=== PATIENT | male | born 1930 | race Caucasian/White ===

== ENCOUNTER 2017-05-08 14:07 | Inpatient (IN) | payer OTHER ==
[2017-05-08 14:12] VITALS: BMI 21.9
--- NOTE | 2017-05-08 14:26 | PDOC ---
History of Present Illness - General Chief Complaint: Shortness of Breath Stated Complaint: SHORTNESS OF BREATH Time Seen by Provider: 05/08/17 14:24 - History of Present Illness Initial Comments: 05/08/17 14:24 Mr. Rivas is an 86 yo male with a significant past medical history of afib, CHF , HTN, HLD, PVD and skin cancer who presents to the emergency department with a 3-4 day history of new onset weakness with shortness of breath. He reports having difficulty breathing over this time period as well as constipation. The patient denies chest pain, headache and dizziness. Denies fever, chills, nausea, vomit, and diarrhea. Denies dysuria, frequency, urgency and hematuria. Allergies: Penicillins PCP: Aba Past History - Past Medical History Allergies/Adverse Reactions: Allergies Allergy/AdvReac Type Severity Reaction Status Date / Time Penicillins Allergy Intermediate Rash Verified 05/08/17 14:14 Home Medications: Ambulatory Orders Alpha Lipoic Acid [Lipoic Acid] 200 mg PO DAILY 12/12/15 Ascorbic Acid [Vitamin C] 500 mg PO HS 12/12/15 Atorvastatin Ca [Lipitor] 10 mg PO HS 12/12/15 Brimonidine Tartrate [Alphagan 0.15% -] 1 drop OD BID 12/12/15 Cholecalciferol (Vitamin D3) [Vitamin D] 1,000 unit PO DAILY 12/12/15 Dabigatran Etexilate Mesylate [Pradaxa -] 150 mg PO BID 12/12/15 Docusate Sodium [Colace -] 200 mg PO HS 12/12/15 Duloxetine HCl [Cymbalta] 60 mg PO HS 12/12/15 Fenofibrate Nanocrystallized [Tricor] 145 mg PO DAILY 12/12/15 Ferrous Sulfate [Slow Release Iron] 45 mg PO DAILY 12/12/15 Fluticasone Prop 0.05% Nasal [Flonase -] 2 spray NS DAILY 12/12/15 Furosemide [Lasix -] 40 mg PO ASDIR 12/12/15 Levomefolate/B6/B12/Algal Oil [Metanx Capsule] 1 each PO BID 12/12/15 Levothyroxine [Synthroid -] 50 mcg PO DAILY 12/12/15 Magnesium Chloride [Magnesium Dr] 64 mg PO DAILY 12/12/15 Omeprazole [Prilosec] 40 mg PO DAILY 12/12/15 Potassium Chloride 20 meq PO DAILY 12/12/15 Sennosides [Senna Concentrate] 17.2 mg PO DAILY 12/12/15 Butenafine HCl [Mentax] 30 gm TP BID 05/08/17 Gabapentin 600 mg PO BID 05/08/17 Melatonin 3 mg PO DAILY 05/08/17 Anemia: No Asthma: No Cancer: No Cardiac Disorders: Yes (AFIB) CVA: No COPD: No CHF: Yes Dementia: No Diabetes: No GI Disorders: No Disorders: No HTN: Yes Hypercholesterolemia: Yes Liver Disease: No Suicide Attempt (Hx): No Seizures: No Thyroid Disease: Yes (HYPOTHYROIDISM) - Surgical History Abdominal Surgery: No Appendectomy: No Cardiac Surgery: Yes (STENTS) Cholecystectomy: Yes (OPEN) Lung Surgery: Yes (R LUNG SX, NO CA) Neurologic Surgery: No Orthopedic Surgery: Yes (LAMINECTOMY, DAVIN KNEE REPLACEMENT) - Immunization History Td Vaccination: Yes Immunization Up to Date: Yes - Psycho/Social/Smoking Cessation Hx Anxiety: No Suicidal Ideation: No Smoking Status: Yes Smoking History: Former smoker Have you smoked in the past 12 months: No Number of Cigarettes Smoked Daily: 0 If you are a former smoker, when did you quit?: 1984 Cigars Per Day: 0 Information on smoking cessation initiated: No Hx Alcohol Use: No Drug/Substance Use Hx: No Substance Use Type: None Hx Substance Use Treatment: No Review of Systems - Review of Systems Comments:: 05/08/17 14:24 GENERAL/CONSTITUTIONAL: +Generalized new onset weakness. No fever or chills. HEAD, EYES, EARS, NOSE AND THROAT: No change in vision. No ear pain or discharge. No sore throat. CARDIOVASCULAR:+3-4 days of shortness of breath RESPIRATORY: No cough, wheezing, or hemoptysis. GASTROINTESTINAL: +Recent consipation. No nausea, vomiting, or diarrhea. GENITOURINARY: No dysuria, frequency, or change in urination. MUSCULOSKELETAL: No joint or muscle swelling or pain. No neck or back pain. SKIN: No rash NEUROLOGIC: No headache, vertigo, loss of consciousness, or change in sensation. ENDOCRINE: No increased thirst. No abnormal weight change HEMATOLOGIC/LYMPHATIC: No anemia, easy bleeding, or history of blood clots. ALLERGIC/IMMUNOLOGIC: No hives or skin allergy. *Physical Exam - Vital Signs Last Vital Signs Temp Pulse Resp BP Pulse Ox 97.6 F 76 20 145/99 98 05/08/17 14:08 05/08/17 14:08 05/08/17 14:08 05/08/17 14:08 05/08/17 14:08 - Physical Exam Comments: 05/08/17 14:24 GENERAL: +Patient very pale. Satting well on 3L NC. Awake, alert, and fully oriented. Strength symmetric. HEAD: No signs of trauma, normocephalic, atraumatic EYES: PERRLA, EOMI, sclera anicteric, conjunctiva clear ENT: +Dry mucosa. Auricles normal inspection, hearing grossly normal, nares patent, oropharynx clear without exudates. NECK: Normal ROM, supple, no lymphadenopathy, JVD, or masses LUNGS: +Patient short of breath with any exertion. Speaks full sentences, clear to auscultation bilaterally HEART: Regular rate and rhythm, normal S1 and S2, no murmurs, rubs or gallops, peripheral pulses normal and equal bilaterally. ABDOMEN: Soft, nontender, normoactive bowel sounds. No guarding, no rebound. No masses EXTREMITIES: Normal inspection, Normal range of motion, no edema. No clubbing or cyanosis. NEUROLOGICAL: Cranial nerves II through XII grossly intact. Normal speech, no focal sensorimotor deficits SKIN: Warm, Dry, normal turgor, no rashes or lesions noted. ED Treatment Course - LABORATORY CBC & Chemistry Diagram: 05/08/17 15:23 05/08/17 15:23 Medical Decision Making - Medical Decision Making 05/08/17 17:30 Mr. Rivas presents with new onset shortness of breath with any exertion. Labs as below - significant for troponin 0.06 with cardiac history. Admitting for telemetry and workup to investigate cause of symptoms. Laboratory Results - last 24 hr 05/08/17 05/08/17 15:23 15:23 WBC 11.1 H D RBC 3.15 L Hgb 11.2 L D Hct 33.1 L D MCV 105.2 H MCH 35.5 H D MCHC 33.8 RDW 17.2 H Plt Count 251 D MPV 9.0 Neutrophils % 84.2 H Lymphocytes % 5.5 L Monocytes % 8.7 Eosinophils % 1.0 Basophils % 0.6 Sodium 141 Potassium 4.2 Chloride 97 L Carbon Dioxide 38 H D Anion Gap 6 L BUN 22 H Creatinine 0.8 D Creat Clearance w eGFR > 60 Random Glucose 105 Calcium 8.8 Total Bilirubin 0.7 AST 18 ALT 16 Alkaline Phosphatase 40 L Creatine Kinase 24 L Troponin I 0.06 H D Total Protein 6.5 Albumin 3.4 *DC/Admit/Observation/Transfer Diagnosis at time of Disposition: Shortness of breath - Discharge Dispostion Admit: Yes - Referrals Referrals: Willy Troncoso MD [Primary Care Provider] -
--- NOTE | 2017-05-08 15:09 | PDOC ---
Attending Attestation - HPI HPI: 05/08/17 15:10 The patient is an 86 year old male with history of hypertension, atrial fibrillation, CAD, CHF, who presents to the ED complaining of approximately 3-4 days of progressively worsening shortness of breath and generalized weakness. CXR yesterday by PCP was reportedly unremarkable. No fever, chills, nausea, vomiting, peripheral edema. - Physicial Exam PE: 05/08/17 15:11 GENERAL: Awake, alert, and fully oriented, in no acute distress HEAD: No signs of trauma EYES: PERRLA, EOMI, sclera anicteric, conjunctiva clear ENT: +Dry mucous membranes. Auricles normal inspection, hearing grossly normal, nares patent, oropharynx clear without exudates. NECK: Normal ROM, supple, no lymphadenopathy, JVD, or masses LUNGS: Breath sounds equal, clear to auscultation bilaterally. No wheezes, and no crackles HEART: Regular rate and rhythm, normal S1 and S2, no murmurs, rubs or gallops ABDOMEN: Soft, nontender, normoactive bowel sounds. No guarding, no rebound. No masses EXTREMITIES: Normal range of motion, no edema. No clubbing or cyanosis. No cords, erythema, or tenderness NEUROLOGICAL: Cranial nerves II through XII grossly intact. Normal speech, gait deferred. SKIN: Warm, Dry, normal turgor, no rashes or lesions noted. - Medical Decision Making 05/08/17 15:13 Documentation prepared by Charo Fernandez, acting as curator medical museum for Susana Hilario MD. <Charo Fernandez - Last Filed: 05/08/17 15:10> - Resident Resident Name: Ant Mendoza - ED Attending Attestation I have performed the following: I have examined & evaluated the patient, The case was reviewed & discussed with the resident, I agree w/resident's findings & plan, Exceptions are as noted - HPI HPI: 05/08/17 15:26 . - Physicial Exam PE: 05/08/17 15:26 . - Medical Decision Making 05/08/17 15:00 86 yo M with /ho afib, chf, htn ckd here with progressive sob, and weakness. nonfocal. noted pallor on exam . otherwise normal. differential: anemia, chf infection such as pneumonia, angina, worsening renal failure. electrolyte abnormality, plan ekg labs cxr tsh <Susana Hilario - Last Filed: 05/08/17 15:26> Heart Score/ECG Review #1 General ECG Interpretation: Normal Rate (73), Normal Intervals, No acute ischemic changes Compared to previous ECG there are: No significant change (comparison 08/01/15) - ECG Intrepretation Rhythm: Irregularly Irregular Comment:: 05/08/17 15:25 afib - QRS Widened: RBBB <Susana Hilario - Last Filed: 05/08/17 15:26>
[2017-05-08 15:43] LABS: BASOPHIL 0.6 % (0-2.0); MCH 35.5 pg (25.7-33.7); MCHC 33.8 g/dl (32.0-35.9); MEAN CELL VOLUME 105.2 fl (80-96); NEUTROPHILS 84.2 % (42.8-82.8); PLATELET COUNT 251 K/MM3 (134-434); RDW 17.2 % (11.9-15.9); WHITE BLOOD COUNT 11.1 K/mm3 (4.0-10.0)
[2017-05-08 16:05] LABS: ALBUMIN 3.4 g/dl (3.4-5.0); ANION GAP 6 (8-16); BILIRUBIN,TOTAL 0.7 mg/dL (0.2-1.0); CALCIUM 8.8 mg/dL (8.5-10.1); CO2 38 mmol/L (21-32); CREATININE 0.8 mg/dL (0.7-1.3); GLUCOSE,RANDOM 105 mg/dL (74-106); SGOT/AST 18 U/L (15-37); SGPT/ALT 16 U/L (12-78); TOT PROT 6.5 g/dl (6.4-8.2)
[2017-05-08 16:08] LABS: ALK PHOS 40 U/L (45-117); CPK 24 IU/L (39-308); TROPONIN I 0.06 ng/ml (0.00-0.05)
[2017-05-08] MEDS ORDERED: ACETAMINOPHEN 325 MG TABLET (FP) PO PRN (18:51)
[2017-05-08] MEDS ORDERED: FUROSEMIDE 40 MG TABLET (FP) PO SCH (19:00)
[2017-05-08] MEDS ORDERED: RANITIDINE HCL 150 MG TABLET (FP) ONE (22:07)
[2017-05-08] MEDS ORDERED: DOCUSATE SODIUM 100 MG CAPSULE (FP) PO ONE (22:08)
[2017-05-08] MEDS ORDERED: ATORVASTATIN CA 40 MG TABLET (FP) ONE (22:08)
[2017-05-08] MEDS ORDERED: GABAPENTIN 100 MG CAPSULE (FP) ONE (22:08)
[2017-05-08] MEDS ORDERED: DULoxetine HCL 30 MG CAPSULE.DR (FP) PO ONE (22:08)
[2017-05-08] MEDS: BRIMONIDINE TARTRATE 0.15% OPHTHALMIC 5 ML BOTTLE OD SCH (23:05)
[2017-05-08] MEDS: DOCUSATE SODIUM 100 MG CAPSULE (FP) PO SCH (23:05)
[2017-05-08] MEDS: ATORVASTATIN CA 10 MG TABLET (FP) PO SCH (23:05)
[2017-05-08] MEDS: DULoxetine HCL 30 MG CAPSULE.DR (FP) PO SCH (23:05)
[2017-05-08] MEDS: GABAPENTIN 300 MG CAPSULE (FP) PO SCH (23:05)
[2017-05-08] MEDS: DABIGATRAN ETEXILATE MESYLATE 150 MG CAPSULE PO SCH (23:06)
[2017-05-08] MEDS: ASCORBIC ACID 500 MG TABLET (FP) PO SCH (23:06)
[2017-05-08] MEDS: RANITIDINE HCL 150 MG TABLET (FP) PO SCH (23:06)
[2017-05-09 01:21] LABS: URINE APPEARANCE CLEAR; URINE BILIRUBIN NEGATIVE (NEGATIVE); URINE BLOOD NEGATIVE (NEGATIVE); URINE COLOR LTYELLOW; URINE GLUCOSE (UA) NEGATIVE (NEGATIVE); URINE KETONE NEGATIVE (NEGATIVE); URINE LEUK ESTERASE NEGATIVE (NEGATIVE); URINE NITRITE NEGATIVE (NEGATIVE); URINE PROTEIN 2+ (NEGATIVE); URINE UROBILINOGEN NEGATIVE mg/dL (0.2-1.0)
[2017-05-09 01:23] LABS: URINE BACTERIA RARE /hpf (NONE SEEN); URINE HYALINE CAST 16 /lpf; URINE MUCUS RARE; URINE RBC 1 /hpf (0-3)
--- NOTE | 2017-05-09 05:16 | CONSULT ---
Consult Consult Specialty:: pulmonary/ critical care Referred by:: Jose Chaney Reason for Consultation:: shortness of breath - History of Present Illness Chief Complaint: shorness of breath History of Present Illness: 86 y/o man with history of afib on AC, CHF, HTN, HLD, PVD and skin cancer who presented to ED with 3-4 days of weakness and shortness of breath. He also reportedly fell at home while trying to avoid stepping on the cat, no head trauma, no LOC. In the ED, pt denied chest pain, headache, dizziness, fever, chills, nausea/ vomiting, diarrhea, dysuria. CXR in ED showed some increased vascular markings otherwise relatively unremarkable. Labs notable for mild leukocytosis 11 and BNP 27K, urine with 2+ protein. Given no tele beds available , pt transferred to ICU. On arrival to ICU pt A&O, on my exam he is resting comfortably, breathing unlabored, satting 100% on 2L NC, hemodynamically stable. Active Medications Acetaminophen (Tylenol -) 650 mg PO Q6H PRN PRN Reason: FEVER OR PAIN Ascorbic Acid (Vitamin C -) 500 mg PO HS [facility] Last Admin: 05/08/17 23:06 Dose: 500 mg Atorvastatin Calcium (Lipitor -) 10 mg PO HS [facility] Last Admin: 05/08/17 23:05 Dose: 10 mg Brimonidine Tartrate (Alphagan 0.15% -) 1 drop OD BID [facility] Last Admin: 05/08/17 23:05 Dose: 1 drop Cholecalciferol (Vitamin D3 -) 1,000 unit PO DAILY [facility] Dabigatran (Pradaxa -) 150 mg PO BID [facility] Last Admin: 05/08/17 23:06 Dose: 150 mg Docusate Sodium (Colace -) 200 mg PO HS [facility] Last Admin: 05/08/17 23:05 Dose: 200 mg Duloxetine HCl (Cymbalta -) 60 mg PO HS [facility] Last Admin: 05/08/17 23:05 Dose: 60 mg Fenofibric Acid (Trilipix -) 135 mg PO DAILY [facility] Fluticasone Propionate (Flonase -) 2 spray NS DAILY [facility] Furosemide (Lasix -) 40 mg PO ASDIR [facility] Last Admin: 05/08/17 19:15 Dose: 40 mg Gabapentin (Neurontin -) 600 mg PO BID [facility] Last Admin: 05/08/17 23:05 Dose: 600 mg Levothyroxine Sodium (Synthroid -) 50 mcg PO DAILY@0700 [facility] Magnesium Chloride (Slow-Mag -) 64 mg PO DAILY [facility] Non-Formulary Medication (Ferrous Sulfate [Slow Release Iron]) 45 mg PO DAILY [facility] Potassium Chloride (K-Dur -) 20 meq PO DAILY [facility] Ranitidine HCl (Zantac -) 150 mg PO BID [facility] Last Admin: 05/08/17 23:06 Dose: 150 mg Senna (Senna -) 2 tab PO DAILY [facility] - History Source History Provided By: Medical Record - Past Medical History COMPONENTS 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: Yes: Peripheral Neuropathy Cardio/Vascular: Yes: AFIB, CAD, CHF, HTN, Hyperlipdemia Pulmonary: Yes: Pneumonia Gastrointestinal: Yes: Diverticulosis, GI Bleed, Hemorrhoids, Hiatal Hernia Renal/: Yes: Renal Inusuff Infectious Disease: Yes: Other (previous sepsis) Musculoskeletal: Yes: Osteoarthritis, Other (right foot drop) ENT: Yes: Other (cant swallow even sips of H2O) Dermatology: Yes: Basal Cell (face), Other (Left adventist with local extension and hematoma) - Past Surgical History Past Surgical History: Yes: Bypass (left fem-pop), CABG (x3 2004), Cholecystectomy, Joint Replacement (bilateral knees), Orchiectomy (unilateral for testicular injury at 18yrs of age) - Alcohol/Substance Use Hx Alcohol Use: No History of Substance Use: reports: None - Smoking History Smoking history: Former smoker Have you smoked in the past 12 months: No Aproximately how many cigarettes per day: 0 If you are a former smoker, when did you quit?: 1983 - Social History Usual Living Arrangement: With Spouse ADL: Support Services (In [place] post) 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) History of Recent Travel: No Home Medications - Allergies Allergies/Adverse Reactions: Allergies Allergy/AdvReac Type Severity Reaction Status Date / Time Penicillins Allergy Intermediate Rash Verified 05/08/17 14:14 - Home Medications Home Medications: Ambulatory Orders Alpha Lipoic Acid [Lipoic Acid] 200 mg PO DAILY 12/12/15 Ascorbic Acid [Vitamin C] 500 mg PO HS 12/12/15 Atorvastatin Ca [Lipitor] 10 mg PO HS 12/12/15 Brimonidine Tartrate [Alphagan 0.15% -] 1 drop OD BID 12/12/15 Cholecalciferol (Vitamin D3) [Vitamin D] 1,000 unit PO DAILY 12/12/15 Dabigatran Etexilate Mesylate [Pradaxa -] 150 mg PO BID 12/12/15 Docusate Sodium [Colace -] 200 mg PO HS 12/12/15 Duloxetine HCl [Cymbalta] 60 mg PO HS 12/12/15 Fenofibrate Nanocrystallized [Tricor] 145 mg PO DAILY 12/12/15 Ferrous Sulfate [Slow Release Iron] 45 mg PO DAILY 12/12/15 Fluticasone Prop 0.05% Nasal [Flonase -] 2 spray NS DAILY 12/12/15 Furosemide [Lasix -] 40 mg PO ASDIR 12/12/15 Levomefolate/B6/B12/Algal Oil [Metanx Capsule] 1 each PO BID 12/12/15 Levothyroxine [Synthroid -] 50 mcg PO DAILY 12/12/15 Magnesium Chloride [Magnesium Dr] 64 mg PO DAILY 12/12/15 Omeprazole [Prilosec] 40 mg PO DAILY 12/12/15 Potassium Chloride 20 meq PO DAILY 12/12/15 Sennosides [Senna Concentrate] 17.2 mg PO DAILY 12/12/15 Butenafine HCl [Mentax] 30 gm TP BID 05/08/17 Gabapentin 600 mg PO BID 05/08/17 Melatonin 3 mg PO DAILY 05/08/17 Family Disease History - Family Disease History Family Disease History: CA: Son (1 son from cancer, 1 son from alcohol abuse), Other: Father (old age), Mother (old age), Son Review of Systems - Review of Systems Constitutional: reports: Weakness Respiratory: reports: SOB Gastrointestinal: reports: Constipation Physical Exam Vital Signs: Vital Signs Temperature 97.5 F L 05/09/17 03:30 Pulse Rate 61 05/09/17 03:30 Respiratory Rate 14 05/09/17 05:01 Blood Pressure 140/69 05/09/17 03:30 O2 Sat by Pulse Oximetry (%) 100 05/09/17 05:01 Constitutional: Yes: Calm HENT: Yes: Atraumatic, Other (skin cancer L ear) Cardiovascular: Yes: Pulse Irregular Respiratory: Yes: Regular, On Nasal O2. No: Accessory Muscle Use, Rales, Rhonchi Gastrointestinal: Yes: Hypoactive Bowel Sounds Extremities: Yes: Cool (cool distal lower extremities) Edema: No Peripheral Pulses WNL: Yes (1+) Integumentary: Yes: Bruising (buttox), Skin Tear (elbow 2/2 fall) Neurological: Yes: Alert, Other (reported A&O by RN, currently sleeping comfortably) Labs: CBCD WBC 11.1 K/mm3 (4.0-10.0) H D 05/08/17 15:23 RBC 3.15 M/mm3 (4.00-5.60) L 05/08/17 15:23 Hgb 11.2 GM/dL (11.7-16.9) L D 05/08/17 15:23 Hct 33.1 % (35.4-49) L D 05/08/17 15:23 MCV 105.2 fl (80-96) H 05/08/17 15:23 MCHC 33.8 g/dl (32.0-35.9) 05/08/17 15:23 RDW 17.2 % (11.9-15.9) H 05/08/17 15:23 Plt Count 251 K/MM3 (134-434) D 05/08/17 15:23 MPV 9.0 fl (7.5-11.1) 05/08/17 15:23 CMP Sodium 141 mmol/L (136-145) 05/08/17 15:23 Potassium 4.2 mmol/L (3.5-5.1) 05/08/17 15:23 Chloride 97 mmol/L (98-107) L 05/08/17 15:23 Carbon Dioxide 38 mmol/L (21-32) H D 05/08/17 15:23 Anion Gap 6 (8-16) L 05/08/17 15:23 BUN 22 mg/dL (7-18) H 05/08/17 15:23 Creatinine 0.8 mg/dL (0.7-1.3) D 05/08/17 15:23 Creat Clearance w eGFR > 60 (>60) 05/08/17 15:23 Calcium 8.8 mg/dL (8.5-10.1) 05/08/17 15:23 Total Bilirubin 0.7 mg/dL (0.2-1.0) 05/08/17 15:23 AST 18 U/L (15-37) 05/08/17 15:23 ALT 16 U/L (12-78) 05/08/17 15:23 Alkaline Phosphatase 40 U/L (45-117) L 05/08/17 15:23 Total Protein 6.5 g/dl (6.4-8.2) 05/08/17 15:23 Albumin 3.4 g/dl (3.4-5.0) 05/08/17 15:23 Troponin, BNP 05/08/17 05/08/17 15:23 18:57 Troponin I 0.06 H D B-Natriuretic Peptide 25045.58 H Imaging - Results Chest X-ray: Report Reviewed, Image Reviewed Problem List - Problems (1) Shortness of breath Code(s): R06.02 - SHORTNESS OF BREATH (2) Atrial fibrillation Code(s): I48.91 - UNSPECIFIED ATRIAL FIBRILLATION (3) CHF (congestive heart failure) Code(s): I50.9 - HEART FAILURE, UNSPECIFIED (4) HTN (hypertension) Code(s): I10 - ESSENTIAL (PRIMARY) HYPERTENSION (5) Malignant neoplasm of skin of adventist Code(s): C44.309 - UNSP MALIGNANT NEOPLASM OF SKIN OF OTHER PARTS OF FACE (6) PVD (peripheral vascular disease) Code(s): I73.9 - PERIPHERAL VASCULAR DISEASE, UNSPECIFIED Assessment/Plan 86 y/o man with history of afib on AC, CHF, HTN, HLD, PVD and skin cancer who presented with shortness of breath and weakness now admitted to the ICU for further monitoring. Unclear precipitant of SOB, differentials include possible CHF exacerbation vs worsening of cardiac function vs PNA vs worsening of renal function given proteinuria though creatinine appears close to baseline. Anemia ruled out. -can likely transfer to tele bed when available -continue O2 as needed - can try to titrate down, may not need -trend BNP -continue diuresis, augment home dose of lasix as needed -continue anticoagulation for afib -TTE to eval for change in cardiac function -trend CXR -consider cards consult -ongoing work up of proteinuria Dispo: JENI QUINTEROSP CC time: 35 mins
[2017-05-09 06:52] LABS: THYROID STIMULATING HORMONE 1.52 uIU/ml (0.358-3.74)
[2017-05-09] MEDS: LEVOTHYROXINE NA 50 MCG TABLET (FP) PO SCH (07:34)
[2017-05-09 08:28] LABS: BASOPHIL 0.8 % (0-2.0); EOSINOPHIL 1.4 % (0-4.5); MCH 35.6 pg (25.7-33.7); MCHC 34.1 g/dl (32.0-35.9); MEAN CELL VOLUME 104.5 fl (80-96); MEAN PLT VOLUME 7.8 fl (7.5-11.1); NEUTROPHILS 84.1 % (42.8-82.8); RDW 17.2 % (11.9-15.9); WHITE BLOOD COUNT 9.7 K/mm3 (4.0-10.0)
[2017-05-09 09:38] LABS: PLATELET COUNT 196 K/MM3 (134-434); PLATELET ESTIMATE ADEQUATE (NORMAL)
[2017-05-09] MEDS: GABAPENTIN 300 MG CAPSULE (FP) PO SCH ×2 (09:48→21:22)
[2017-05-09] MEDS: POTASSIUM CHLORIDE TABS 20 MEQ TABLET.ER (FP) PO SCH (09:49)
[2017-05-09] MEDS: CHOLECALCIFEROL (VITAMIN D3) 1,000 UNIT TABLET (FP) PO SCH (09:49)
[2017-05-09] MEDS: RANITIDINE HCL 150 MG TABLET (FP) PO SCH ×2 (09:49→21:22)
[2017-05-09] MEDS: SENNOSIDES 8.6MG TABLET (FP) PO SCH (09:49)
[2017-05-09] MEDS: DABIGATRAN ETEXILATE MESYLATE 150 MG CAPSULE PO SCH ×2 (09:51→21:22)
[2017-05-09 09:59] LABS: ANION GAP 6 (8-16); BILIRUBIN,TOTAL 0.6 mg/dL (0.2-1.0); CALCIUM 8.6 mg/dL (8.5-10.1); CO2 38 mmol/L (21-32); CREATININE 0.8 mg/dL (0.7-1.3); GLUCOSE,RANDOM 86 mg/dL (74-106); SGOT/AST 17 U/L (15-37); SGPT/ALT 12 U/L (12-78); TOT PROT 5.8 g/dl (6.4-8.2)
[2017-05-09 10:02] LABS: ALK PHOS 34 U/L (45-117); TROPONIN I 0.06 ng/ml (0.00-0.05)
--- NOTE | 2017-05-09 10:36 | HP ---
Admitting History and Physical - Primary Care Physician PCP: Willy Troncoso - Admission Chief Complaint: I'm short of breath History of Present Illness: Mr Rivas is a pleasant 86 year old male who comes in with shortness of breath. He says normally walk about 1.5 blocks before getting short of breath, however over the past 4 days he noted that he was both short of breath on exertion and at rest. He says he is now walking less than 1/2 block and getting short of breath, but what was really concerning to him is that he was short of breath even at rest. He says he would be sitting on the couch and suddenly get short of breath. It would last for a few minutes and would sometimes resolve with certain movements, but not always. He says sometimes it would go away on its own. He also had difficulty breathing while lying down and would need to turn to the side. Because of this he came in for further evaluation. Aside from this he is without complaint. He denies fevers, chills, lightheadedness, dizziness, passing out, chest pain, coughing, sick contacts, abdominal pain, nausea, vomiting, diarrhea, constipation, difficulty or pain on urination, or leg swelling. Currently he says he feels fine and is not short of breath, he says the shortness of breath resolved with oxygen. 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 SPECIALIST: Yes: Peripheral Neuropathy Cardiovascular: Yes: AFIB, CAD, CHF, HTN, Hyperlipdemia Pulmonary: Yes: Pneumonia Gastrointestinal: Yes: Diverticulosis, GI Bleed, Hemorrhoids, Hiatal Hernia Renal/: Yes: Renal Inusuff Infectious Disease: Yes: Other (previous sepsis) Musculoskeletal: Yes: Osteoarthritis, Other (right foot drop) ENT: Yes: Other (cant swallow even sips of H2O) Dermatology: Yes: Basal Cell (face), Other (Left samaritan with local extension and hematoma) - Past Surgical History Past Surgical History: Yes: Bypass (left fem-pop), CABG (x3 2004), Cholecystectomy, Joint Replacement (bilateral knees), Orchiectomy (unilateral for testicular injury at 18yrs of age) - Smoking History Smoking history: Former smoker Have you smoked in the past 12 months: No Aproximately how many cigarettes per day: 0 If you are a former smoker, when did you quit?: 1983 - Alcohol/Substance Use Hx Alcohol Use: No History of Substance Use: reports: None - Social History Usual Living Arrangement: Yes: With Spouse ADL: Support Services (In [place] post) 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[employer]) History of Recent Travel: No Home Medications - Allergies Allergies/Adverse Reactions: Allergies Allergy/AdvReac Type Severity Reaction Status Date / Time Penicillins Allergy Intermediate Rash Verified 05/08/17 14:14 - Home Medications Home Medications: Ambulatory Orders Alpha Lipoic Acid [Lipoic Acid] 200 mg PO DAILY 12/12/15 Ascorbic Acid [Vitamin C] 500 mg PO HS 12/12/15 Atorvastatin Ca [Lipitor] 10 mg PO HS 12/12/15 Brimonidine Tartrate [Alphagan 0.15% -] 1 drop OD BID 12/12/15 Cholecalciferol (Vitamin D3) [Vitamin D] 1,000 unit PO DAILY 12/12/15 Dabigatran Etexilate Mesylate [Pradaxa -] 150 mg PO BID 12/12/15 Docusate Sodium [Colace -] 200 mg PO HS 12/12/15 Duloxetine HCl [Cymbalta] 60 mg PO HS 12/12/15 Fenofibrate Nanocrystallized [Tricor] 145 mg PO DAILY 12/12/15 Ferrous Sulfate [Slow Release Iron] 45 mg PO DAILY 12/12/15 Fluticasone Prop 0.05% Nasal [Flonase -] 2 spray NS DAILY 12/12/15 Furosemide [Lasix -] 40 mg PO ASDIR 12/12/15 Levomefolate/B6/B12/Algal Oil [Metanx Capsule] 1 each PO BID 12/12/15 Levothyroxine [Synthroid -] 50 mcg PO DAILY 12/12/15 Magnesium Chloride [Magnesium Dr] 64 mg PO DAILY 12/12/15 Omeprazole [Prilosec] 40 mg PO DAILY 12/12/15 Potassium Chloride 20 meq PO DAILY 12/12/15 Sennosides [Senna Concentrate] 17.2 mg PO DAILY 12/12/15 Butenafine HCl [Mentax] 30 gm TP BID 05/08/17 Gabapentin 600 mg PO BID 05/08/17 Melatonin 3 mg PO DAILY 05/08/17 Family Disease History - Family Disease History Family Disease History: CA: Son (1 son from cancer, 1 son from alcohol abuse), Other: Father (old age), Mother (old age), Son Review of Systems Findings/Remarks: Full review of systems obtained, as per HPI and otherwise negative Physical Examination Vital Signs: Vital Signs Temperature 36.4 C 05/09/17 10:00 Pulse Rate 75 05/09/17 10:00 Respiratory Rate 15 05/09/17 10:00 Blood Pressure 111/59 05/09/17 10:00 O2 Sat by Pulse Oximetry (%) 100 05/09/17 05:01 Constitutional: Yes: Well Nourished, No Distress, Calm Eyes: Yes: Conjunctiva Clear, EOM Intact, PERRL Cardiovascular: Yes: Regular Rate and Rhythm. No: Gallop, Murmur, Rub Respiratory: Yes: Regular, CTA Bilaterally. No: Rales, Rhonchi, Wheezes Gastrointestinal: Yes: Normal Bowel Sounds, Soft. No: Distention, Tenderness Extremities: Yes: WNL Edema: No Labs: CBC, BMP 05/09/17 08:20 05/09/17 08:20 Imaging - Results Chest X-ray: Report Reviewed, Image Reviewed Problem List - Problems (1) Shortness of breath Assessment/Plan: -patient with subjective shortness of breath -lung exam clear, chest x-ray clear, no edema noted -abnormal lab values include elevated bnp and metabolic alkalosis -however previous bnp's were elevated and patient appears euvolemic -will follow up ECHO, will continue oral lasix at this time -will check ABG to evaluate possible chronic respiratory acidosis -patient says feeling improved, wean off of oxygen Code(s): R06.02 - SHORTNESS OF BREATH (2) Alkalosis, metabolic Assessment/Plan: -not seen on last admission -will check ABG, ? compensating for chronic respiratory acidosis/hypercarbia Code(s): E87.3 - ALKALOSIS (3) Atrial fibrillation Assessment/Plan: -controlled -continue pradaxa Code(s): I48.91 - UNSPECIFIED ATRIAL FIBRILLATION Qualifiers: Atrial fibrillation type: chronic Qualified Code(s): I48.2 - Chronic atrial fibrillation (4) CHF (congestive heart failure) Assessment/Plan: -in spite of elevated bnp, patient does not appear in acute exacerbation -follow up ECHO -continue lasix -cardiology consult Code(s): I50.9 - HEART FAILURE, UNSPECIFIED Qualifiers: Congestive heart failure type: unspecified congestive heart failure type Congestive heart failure chronicity: chronic Qualified Code(s): I50.9 - Heart failure, unspecified (5) GERD (gastroesophageal reflux disease) Assessment/Plan: -continue zantac Code(s): K21.9 - GASTRO-ESOPHAGEAL REFLUX DISEASE WITHOUT ESOPHAGITIS (6) HTN (hypertension) Assessment/Plan: -controlled -continue lasix Code(s): I10 - ESSENTIAL (PRIMARY) HYPERTENSION (7) Hyperlipemia Assessment/Plan: -continue fenofibrate and lipitor Code(s): E78.5 - HYPERLIPIDEMIA, UNSPECIFIED (8) Hypothyroidism Assessment/Plan: -continue synthroid Code(s): E03.9 - HYPOTHYROIDISM, UNSPECIFIED (9) PVD (peripheral vascular disease) Assessment/Plan: -on pradaxa -does not complain of claudication Code(s): I73.9 - PERIPHERAL VASCULAR DISEASE, UNSPECIFIED
--- NOTE | 2017-05-09 10:46 | CON.CARD ---
Cardiology Consult (text) - Consultation Consultation Note: Chief Complaint: sob, weakness History of Present Illness: This is a 86 Y/O Gentleman with a PMhx that includes CKD, CAD s/p pci to rca 2004 (patent on cath 2006), PVD s/p le bypass/stents/amputations, HTN, Afib on AC, here with sob, weakness. For months pt has been having sob, weakness, wt loss. Over past few days sob, weakness has been worse so came to ER. No cp, palps, dizzy, loc, pnd, orthopnea, le edema. Sees me for cardio. - Past Medical History Cardio/Vascular: Yes: AFIB, CAD, CHF, HTN, Hyperlipdemia Gastrointestinal: Yes: Diverticulosis, GI Bleed (history), Hemorrhoids (internal ), Hiatal Hernia Renal/: Yes: Renal Inusuff Musculoskeletal: Yes: Osteoarthritis, Other (right foot drop) Dermatology: Yes: Basal Cell (face) - Past Surgical History Past Surgical History: Yes: Bypass (left fem-pop), CABG (x3 2004), Cholecystectomy, Joint Replacement (bilateral knees) - Alcohol/Substance Use Hx Alcohol Use: No History of Substance Use: reports: None - Smoking History ex-smoker - Social History Usual Living Arrangement: With Spouse ADL: Support Services (In [place] post) 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) Home Medications - Allergies Allergies/Adverse Reactions: Allergies Allergy/AdvReac Type Severity Reaction Status Date / Time Penicillins Allergy Intermediate Rash Verified 05/08/17 14:14 - Home Medications Home Medications Medication Instructions Recorded Alpha Lipoic Acid [Lipoic Acid] 200 mg PO DAILY 12/12/15 Ascorbic Acid [Vitamin C] 500 mg PO HS 12/12/15 Atorvastatin Ca [Lipitor] 10 mg PO HS 12/12/15 Brimonidine Tartrate [Alphagan 1 drop OD BID 12/12/15 0.15% -] Cholecalciferol (Vitamin D3) 1,000 unit PO DAILY 12/12/15 [Vitamin D] Dabigatran Etexilate Mesylate 150 mg PO BID 12/12/15 [Pradaxa -] Docusate Sodium [Colace -] 200 mg PO HS 12/12/15 Duloxetine HCl [Cymbalta] 60 mg PO HS 12/12/15 Fenofibrate Nanocrystallized 145 mg PO DAILY 12/12/15 [Tricor] Ferrous Sulfate [Slow Release Iron] 45 mg PO DAILY 12/12/15 Fluticasone Prop 0.05% Nasal 2 spray NS DAILY 12/12/15 [Flonase -] Furosemide [Lasix -] 40 mg PO ASDIR 12/12/15 Levomefolate/B6/B12/Algal Oil 1 each PO BID 12/12/15 [Metanx Capsule] Levothyroxine [Synthroid -] 50 mcg PO DAILY 12/12/15 Magnesium Chloride [Magnesium Dr] 64 mg PO DAILY 12/12/15 Omeprazole [Prilosec] 40 mg PO DAILY 12/12/15 Potassium Chloride 20 meq PO DAILY 12/12/15 Sennosides [Senna Concentrate] 17.2 mg PO DAILY 12/12/15 Butenafine HCl [Mentax] 30 gm TP BID 05/08/17 Gabapentin 600 mg PO BID 05/08/17 Melatonin 3 mg PO DAILY 05/08/17 Family Disease History - Family Disease History Family Disease History: CA: Son (1 son from cancer, 1 son from alcohol abuse), Other: Son Vital Signs: Vital Signs Period Temp Pulse Resp BP Sys/Mitchell Pulse Ox Last 24 Hr 97.5 F-97.8 F 59-77 14-20 111-153/56-99 98-100 nad no jvd irreg, s1s2 no mrg cta bl nl eff aaox3 no le e/c/c abd nt nd pos bs no jaundice diaphoresis pos dp pt no carotid bruits Laboratory Last Values WBC 9.7 K/mm3 (4.0-10.0) 05/09/17 08:20 RBC 2.92 M/mm3 (4.00-5.60) L 05/09/17 08:20 Hgb 10.4 GM/dL (11.7-16.9) L 05/09/17 08:20 Hct 30.5 % (35.4-49) L 05/09/17 08:20 MCV 104.5 fl (80-96) H 05/09/17 08:20 MCH 35.6 pg (25.7-33.7) H 05/09/17 08:20 MCHC 34.1 g/dl (32.0-35.9) 05/09/17 08:20 RDW 17.2 % (11.9-15.9) H 05/09/17 08:20 Plt Count 196 K/MM3 (134-434) D 05/09/17 08:20 MPV 7.8 fl (7.5-11.1) D 05/09/17 08:20 Neutrophils % 84.1 % (42.8-82.8) H 05/09/17 08:20 Lymphocytes % 7.2 % (8-40) L D 05/09/17 08:20 Monocytes % 6.5 % (3.8-10.2) 05/09/17 08:20 Eosinophils % 1.4 % (0-4.5) 05/09/17 08:20 Basophils % 0.8 % (0-2.0) 05/09/17 08:20 Platelet Estimate Adequate (NORMAL) 05/09/17 08:20 Platelet Comment No clumping noted 05/09/17 08:20 RBC Morphology 05/09/17 08:20 Sodium 141 mmol/L (136-145) 05/09/17 08:20 Potassium 3.9 mmol/L (3.5-5.1) 05/09/17 08:20 Chloride 97 mmol/L (98-107) L 05/09/17 08:20 Carbon Dioxide 38 mmol/L (21-32) H 05/09/17 08:20 Anion Gap 6 (8-16) L 05/09/17 08:20 BUN 20 mg/dL (7-18) H 05/09/17 08:20 Creatinine 0.8 mg/dL (0.7-1.3) 05/09/17 08:20 Creat Clearance w eGFR > 60 (>60) 05/09/17 08:20 Random Glucose 86 mg/dL (74-106) 05/09/17 08:20 Calcium 8.6 mg/dL (8.5-10.1) 05/09/17 08:20 Total Bilirubin 0.6 mg/dL (0.2-1.0) 05/09/17 08:20 AST 17 U/L (15-37) 05/09/17 08:20 ALT 12 U/L (12-78) D 05/09/17 08:20 Alkaline Phosphatase 34 U/L (45-117) L 05/09/17 08:20 Creatine Kinase 24 IU/L (39-308) L 05/08/17 15:23 Troponin I 0.06 ng/ml (0.00-0.05) H 05/09/17 08:20 B-Natriuretic Peptide 44374.36 pg/ml (5-450) H 05/09/17 08:20 Total Protein 5.8 g/dl (6.4-8.2) L 05/09/17 08:20 Albumin 3.0 g/dl (3.4-5.0) L 05/09/17 08:20 TSH 1.52 uIU/ml (0.358-3.74) D 05/08/17 15:23 Urine Color Ltyellow 05/09/17 00:00 Urine Appearance Clear 05/09/17 00:00 Urine pH 5.0 (5.0-8.0) 05/09/17 00:00 Ur Specific [place] 1.015 (1.005-1.025) 05/09/17 00:00 Urine Protein 2+ (NEGATIVE) H 05/09/17 00:00 Urine Glucose (UA) Negative (NEGATIVE) 05/09/17 00:00 Urine Ketones Negative (NEGATIVE) 05/09/17 00:00 Urine Blood Negative (NEGATIVE) 05/09/17 00:00 Urine Nitrite Negative (NEGATIVE) 05/09/17 00:00 Urine Bilirubin Negative (NEGATIVE) 05/09/17 00:00 Urine Urobilinogen Negative mg/dL (0.2-1.0) 05/09/17 00:00 Ur Leukocyte Esterase Negative (NEGATIVE) 05/09/17 00:00 Urine RBC 1 /hpf (0-3) 05/09/17 00:00 Urine WBC None /hpf (3-5) 05/09/17 00:00 Ur Epithelial Cells Rare /hpf (FEW) 05/09/17 00:00 Urine Bacteria Rare /hpf (NONE SEEN) 05/09/17 00:00 Hyaline Casts 16 /lpf 05/09/17 00:00 Urine Mucus Rare 05/09/17 00:00 ecg 05/09/17: afib, rate controlled, nl qtc, no ischemic changes, rbbb tele: afib with rvr overnight to 150s, now rate controlled cxr: clear lungs echo 01/2015: mild dec lvef, ant/septal HK, nl rv size, mild bi-atrial dil, mild tr, rvsp 40-50 echo 10/2016: low nl lvef, nl lv size, nl rv, mild elena, mild mr/tr, rvsp 40-50 mibi 10/2016: no ischemia Assessment/Plan This is a 86 Y/O Gentleman with a PMhx that includes CKD, CAD s/p pci to rca 2004 (patent on cath 2006), PVD s/p le bypass/stents/amputations, HTN, Afib on AC, here with sob, weakness. fatigue, sob: -chronic symptom for months, being evaluated as outpt. had unremarkable stress test and echo 10/2016 -no signs acs, ce's neg x2 -bnp up but no clinical chf and outpt lasix has not improved his sxs -pulm consulted, if no alternative etiologies could attempt trial of iv lasix here to see if helps symptoms afib: -rate controlled off meds -cont pradaxa cad s/p remote pci: -stable -no signs acs -recent mibi and echo unremarkable -cont AC, statin. no bb/acei due to low bp as outpt chronic diastolic chf: -plan as above, on po lasix currently htn: -stable off meds hld: -cont home statin
--- NOTE | 2017-05-09 12:17 | EKG ---
Test Reason : Blood Pressure : / mmHG Vent. Rate : 063 BPM Atrial Rate : 097 BPM P-R Int : 000 ms QRS Dur : 146 ms QT Int : 504 ms P-R-T Axes : 000 -35 -23 degrees QTc Int : 515 ms ATRIAL FIBRILLATION LEFT AXIS DEVIATION RIGHT BUNDLE BRANCH BLOCK ABNORMAL ECG WHEN COMPARED WITH ECG OF 08-MAY-2017 15:19, NO SIGNIFICANT CHANGE WAS FOUND Confirmed by SILVIA BOTELLO MD ([id number]) on 05/09/2017 12:16:56 PM Referred By: Confirmed By:SILVIA BOTELLO MD
--- NOTE | 2017-05-09 12:26 | EKG ---
Test Reason : Blood Pressure : / mmHG Vent. Rate : 073 BPM Atrial Rate : 000 BPM P-R Int : 000 ms QRS Dur : 142 ms QT Int : 452 ms P-R-T Axes : 000 -28 -10 degrees QTc Int : 497 ms ATRIAL FIBRILLATION RIGHT BUNDLE BRANCH BLOCK INFERIOR INFARCT , AGE UNDETERMINED ABNORMAL ECG WHEN COMPARED WITH ECG OF 01-AUG-2015 08:47, RIGHT BUNDLE BRANCH BLOCK IS NOW PRESENT Confirmed by ROSMERY VILLEGAS, SILVIA ([id number]) on 05/09/2017 12:25:53 PM Referred By: Confirmed By:SILVIA BOTELLO MD
[2017-05-09] MEDS: FUROSEMIDE 40 MG TABLET (FP) PO SCH (12:28)
[2017-05-09] MEDS ORDERED: PT OWN MED DRAWER 7, Y5N ONE (12:45)
--- NOTE | 2017-05-09 12:53 | PN ---
Teaching Attending Note Name of Resident: Marcie Champagne ATTENDING PHYSICIAN STATEMENT I saw and evaluated the patient. I reviewed the resident's note and discussed the case with the resident. I agree with the resident's findings and plan as documented. SUBJECTIVE: Patient seen and examined in the ICU. Awake and alert. Reports that breathing is improving with O2. No CP. Noted no change in elevated troponin and BNP. Clinically does not appear to be in CHF. Intake & Output 05/06/17 05/07/17 05/08/17 05/09/17 23:59 23:59 23:59 23:59 Intake Total 100 150 Balance 100 150 Weight 153 lb 156 lb 15.506 oz Last Vital Signs Temp Pulse Resp BP Pulse Ox 97.6 F 76 20 138/78 100 05/09/17 10:00 05/09/17 12:19 05/09/17 12:19 05/09/17 12:19 05/09/17 09:00 Active Medications Acetaminophen (Tylenol -) 650 mg PO Q6H PRN PRN Reason: FEVER OR PAIN Ascorbic Acid (Vitamin C -) 500 mg PO HS [facility] Last Admin: 05/08/17 23:06 Dose: 500 mg Atorvastatin Calcium (Lipitor -) 10 mg PO HS [facility] Last Admin: 05/08/17 23:05 Dose: 10 mg Brimonidine Tartrate (Alphagan 0.15% -) 1 drop OD BID [facility] Last Admin: 05/08/17 23:05 Dose: 1 drop Cholecalciferol (Vitamin D3 -) 1,000 unit PO DAILY [facility] Last Admin: 05/09/17 09:49 Dose: 1,000 unit Dabigatran (Pradaxa -) 150 mg PO BID [facility] Last Admin: 05/09/17 09:51 Dose: 150 mg Docusate Sodium (Colace -) 200 mg PO HS [facility] Last Admin: 05/08/17 23:05 Dose: 200 mg Duloxetine HCl (Cymbalta -) 60 mg PO HS [facility] Last Admin: 05/08/17 23:05 Dose: 60 mg Fenofibric Acid (Trilipix -) 135 mg PO DAILY [facility] Fluticasone Propionate (Flonase -) 2 spray NS DAILY [facility] Furosemide (Lasix -) 40 mg PO DAILY [facility] Last Admin: 05/09/17 12:28 Dose: 40 mg Gabapentin (Neurontin -) 600 mg PO BID [facility] Last Admin: 05/09/17 09:48 Dose: 600 mg Levothyroxine Sodium (Synthroid -) 50 mcg PO DAILY@0700 [facility] Last Admin: 05/09/17 07:34 Dose: 50 mcg Magnesium Chloride (Slow-Mag -) 64 mg PO DAILY [facility] Non-Formulary Medication (Ferrous Sulfate [Slow Release Iron]) 45 mg PO DAILY [facility] Potassium Chloride (K-Dur -) 20 meq PO DAILY [facility] Last Admin: 05/09/17 09:49 Dose: 20 meq Ranitidine HCl (Zantac -) 150 mg PO BID [facility] Last Admin: 05/09/17 09:49 Dose: 150 mg Senna (Senna -) 2 tab PO DAILY [facility] Last Admin: 05/09/17 09:49 Dose: 2 tab Constitutional: Yes: Awake and alert, NAD HENT: Yes: Right ear partial resection, lesion Left ear) Cardiovascular: Yes: Pulse Irregular Respiratory: Yes: Few scattered rhonchi, no wheeze, On Nasal O2. No: Accessory Muscle Use, Rales, Rhonchi Gastrointestinal: Yes: (+) Bowel Sounds Extremities: Yes: (-) edema Edema: No Peripheral Pulses WNL: Yes (1+) Integumentary: Yes: Bruising, Skin Tear Neurological: Yes: Alert, Non-focal Labs: Laboratory Results - last 24 hr 05/08/17 05/08/17 05/08/17 15:23 15:23 18:57 WBC 11.1 H D RBC 3.15 L Hgb 11.2 L D Hct 33.1 L D MCV 105.2 H MCH 35.5 H D MCHC 33.8 RDW 17.2 H Plt Count 251 D MPV 9.0 Neutrophils % 84.2 H Lymphocytes % 5.5 L Monocytes % 8.7 Eosinophils % 1.0 Basophils % 0.6 Platelet Estimate Platelet Comment RBC Morphology Sodium 141 Potassium 4.2 Chloride 97 L Carbon Dioxide 38 H D Anion Gap 6 L BUN 22 H Creatinine 0.8 D Creat Clearance w eGFR > 60 Random Glucose 105 Calcium 8.8 Total Bilirubin 0.7 AST 18 ALT 16 Alkaline Phosphatase 40 L Creatine Kinase 24 L Troponin I 0.06 H D B-Natriuretic Peptide 67058.58 H Total Protein 6.5 Albumin 3.4 TSH 1.52 D Urine Color Urine Appearance Urine pH Ur Specific [place] Urine Protein Urine Glucose (UA) Urine Ketones Urine Blood Urine Nitrite Urine Bilirubin Urine Urobilinogen Ur Leukocyte Esterase Urine RBC Urine WBC Ur Epithelial Cells Urine Bacteria Hyaline Casts Urine Mucus 05/09/17 05/09/17 05/09/17 00:00 08:20 08:20 WBC 9.7 RBC 2.92 L Hgb 10.4 L Hct 30.5 L MCV 104.5 H MCH 35.6 H MCHC 34.1 RDW 17.2 H Plt Count 196 D MPV 7.8 D Neutrophils % 84.1 H Lymphocytes % 7.2 L D Monocytes % 6.5 Eosinophils % 1.4 Basophils % 0.8 Platelet Estimate Adequate Platelet Comment No clumping noted RBC Morphology Sodium 141 Potassium 3.9 Chloride 97 L Carbon Dioxide 38 H Anion Gap 6 L BUN 20 H Creatinine 0.8 Creat Clearance w eGFR > 60 Random Glucose 86 Calcium 8.6 Total Bilirubin 0.6 AST 17 ALT 12 D Alkaline Phosphatase 34 L Creatine Kinase Troponin I 0.06 H B-Natriuretic Peptide 75754.36 H Total Protein 5.8 L Albumin 3.0 L TSH Urine Color Ltyellow Urine Appearance Clear Urine pH 5.0 Ur Specific [place] 1.015 Urine Protein 2+ H Urine Glucose (UA) Negative Urine Ketones Negative Urine Blood Negative Urine Nitrite Negative Urine Bilirubin Negative Urine Urobilinogen Negative Ur Leukocyte Esterase Negative Urine RBC 1 Urine WBC None Ur Epithelial Cells Rare Urine Bacteria Rare Hyaline Casts 16 Urine Mucus Rare Problem List - Problems (1) Shortness of breath Code(s): R06.02 - SHORTNESS OF BREATH (2) Atrial fibrillation Code(s): I48.91 - UNSPECIFIED ATRIAL FIBRILLATION (3) CHF (congestive heart failure) Code(s): I50.9 - HEART FAILURE, UNSPECIFIED (4) HTN (hypertension) Code(s): I10 - ESSENTIAL (PRIMARY) HYPERTENSION (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
--- NOTE | 2017-05-09 13:19 | PN ---
Physical Exam: SUBJECTIVE: Patient seen and examined, patient states his shortness of breath is improved with NC. Denies chest pain, palpitations. OBJECTIVE: Vital Signs Period Temp Pulse Resp BP Sys/Mitchell Pulse Ox Last 24 Hr 97.5 F-97.8 F 59-77 14-20 111-153/56-80 100-100 GENERAL: The patient is awake, alert, and fully oriented, in no acute distress. HEAD: Normal with no signs of trauma. EYES: PERRL, extraocular movements intact, sclera anicteric, conjunctiva clear. No ptosis. ENT: Ears b/L scabes from hx skin CA, nares patent, oropharynx clear without exudates, moist mucous membranes. LUNGS: Breath sounds equal, clear to auscultation bilaterally, no wheezes, no crackles, no accessory muscle use. HEART: Regular rate and irregular rhythm, S1, S2 without murmur, rub or gallop. ABDOMEN: Soft, nontender, nondistended, normoactive bowel sounds, no guarding, no rebound, no hepatosplenomegaly, no masses. EXTREMITIES: 2+ pulses, warm, well-perfused, no edema. NEUROLOGICAL: Cranial nerves II through XII grossly intact. Normal speech, gait not observed. PSYCH: Normal mood, normal affect. SKIN: Warm, dry, normal turgor, no rashes or lesions noted CBCD WBC 9.7 K/mm3 (4.0-10.0) 05/09/17 08:20 RBC 2.92 M/mm3 (4.00-5.60) L 05/09/17 08:20 Hgb 10.4 GM/dL (11.7-16.9) L 05/09/17 08:20 Hct 30.5 % (35.4-49) L 05/09/17 08:20 MCV 104.5 fl (80-96) H 05/09/17 08:20 MCHC 34.1 g/dl (32.0-35.9) 05/09/17 08:20 RDW 17.2 % (11.9-15.9) H 05/09/17 08:20 Plt Count 196 K/MM3 (134-434) D 05/09/17 08:20 MPV 7.8 fl (7.5-11.1) D 05/09/17 08:20 CMP Sodium 141 mmol/L (136-145) 05/09/17 08:20 Potassium 3.9 mmol/L (3.5-5.1) 05/09/17 08:20 Chloride 97 mmol/L (98-107) L 05/09/17 08:20 Carbon Dioxide 38 mmol/L (21-32) H 05/09/17 08:20 Anion Gap 6 (8-16) L 05/09/17 08:20 BUN 20 mg/dL (7-18) H 05/09/17 08:20 Creatinine 0.8 mg/dL (0.7-1.3) 05/09/17 08:20 Creat Clearance w eGFR > 60 (>60) 05/09/17 08:20 Random Glucose 86 mg/dL (74-106) 05/09/17 08:20 Calcium 8.6 mg/dL (8.5-10.1) 05/09/17 08:20 Total Bilirubin 0.6 mg/dL (0.2-1.0) 05/09/17 08:20 AST 17 U/L (15-37) 05/09/17 08:20 ALT 12 U/L (12-78) D 05/09/17 08:20 Alkaline Phosphatase 34 U/L (45-117) L 05/09/17 08:20 Total Protein 5.8 g/dl (6.4-8.2) L 05/09/17 08:20 Albumin 3.0 g/dl (3.4-5.0) L 05/09/17 08:20 CARDIAC ENZYMES Creatine Kinase 24 IU/L (39-308) L 05/08/17 15:23 Troponin I 0.06 ng/ml (0.00-0.05) H 05/09/17 08:20 Active Medications Generic Name Dose Route Start Last Admin Trade Name Freq PRN Reason Stop Dose Admin Acetaminophen 650 mg 05/08/17 18:51 Tylenol - PO Q6H PRN FEVER OR PAIN Ascorbic Acid 500 mg 05/08/17 22:00 05/08/17 23:06 Vitamin C - PO 500 mg HS MICHAEL Administration Atorvastatin Calcium 10 mg 05/08/17 22:00 05/08/17 23:05 Lipitor - PO 10 mg HS MICHAEL Administration Brimonidine Tartrate 1 drop 05/08/17 22:00 05/08/17 23:05 Alphagan 0.15% - OD 1 drop BID MICHAEL Administration Cholecalciferol 1,000 unit 05/09/17 10:00 05/09/17 09:49 Vitamin D3 - PO 1,000 unit DAILY MICHAEL Administration Dabigatran 150 mg 05/08/17 22:00 05/09/17 09:51 Pradaxa - PO 150 mg BID MICHAEL Administration Docusate Sodium 200 mg 05/08/17 22:00 05/08/17 23:05 Colace - PO 200 mg HS MICHAEL Administration Duloxetine HCl 60 mg 05/08/17 22:00 05/08/17 23:05 Cymbalta - PO 60 mg HS MICHAEL Administration Fenofibric Acid 135 mg 05/09/17 10:00 Trilipix - PO DAILY [facility] Fluticasone Propionate 2 spray 05/09/17 10:00 Flonase - NS DAILY [facility] Furosemide 40 mg 05/09/17 12:00 05/09/17 12:28 Lasix - PO 40 mg DAILY MICHAEL Administration Gabapentin 600 mg 05/08/17 22:00 05/09/17 09:48 Neurontin - PO 600 mg BID [facility] Administration Levothyroxine Sodium 50 mcg 05/09/17 07:00 05/09/17 07:34 Synthroid - PO 50 mcg DAILY@0700 [facility] Administration Magnesium Chloride 64 mg 05/09/17 10:00 Slow-Mag - PO DAILY [facility] Non-Formulary Medication 45 mg 05/09/17 10:00 Ferrous Sulfate [Slow Release Iron] PO DAILY [facility] Potassium Chloride 20 meq 05/09/17 10:00 05/09/17 09:49 K-Dur - PO 20 meq DAILY MICHAEL Administration Ranitidine HCl 150 mg 05/08/17 22:00 05/09/17 09:49 Zantac - PO 150 mg BID MICHAEL Administration Senna 2 tab 05/09/17 10:00 05/09/17 09:49 Senna - PO 2 tab DAILY [facility] Administration Tiotropium [place] 1 puff 05/09/17 13:00 Spiriva - IH DAILY [facility] ASSESSMENT/PLAN: This is an 86 year old male with a past medical history of coronary artery disease, peripheral vascular disease, chronic kidney disease, hypertension, atrial fibrillation on pradaxa, presented to ER for worsening shortness of breath fall at home, he tripped over cat. Initial troponin on admission elevated , no ecg changes. Cardiology consulted. #sob, chronic : improved -maybe be secondary to smoking history; pulm eval as outpatient -sprivia 1puff IH daily -unlikely of cardiac origin; patient had stress test 10/2016 which was negative -troponin x2 0.06, -pre and post ambulation oxygen saturation -transfer to [facility] #atrial fibrillation: -rate controlled -cont AC #chronic diastolic HF: stable -bnp elevated most likey due to increased pulm pressure -not fluid overloaded -cont home po lasix #htn: stable #HLD: -cont lipitor 10mg HS FEN: Fluids: n/a Electrolytes: wnl Diet: low na VTE prophylaxis: on pradaxa Disposition: transfer to telemetry Problem List - Problems (1) Shortness of breath Code(s): R06.02 - SHORTNESS OF BREATH (2) Atrial fibrillation Code(s): I48.91 - UNSPECIFIED ATRIAL FIBRILLATION Qualifiers: Atrial fibrillation type: chronic Qualified Code(s): I48.2 - Chronic atrial fibrillation (3) CHF (congestive heart failure) Code(s): I50.9 - HEART FAILURE, UNSPECIFIED Qualifiers: Congestive heart failure type: unspecified congestive heart failure type Congestive heart failure chronicity: chronic Qualified Code(s): I50.9 - Heart failure, unspecified (4) CKD (chronic kidney disease) stage 2, GFR 60-89 ml/min Code(s): N18.2 - CHRONIC KIDNEY DISEASE, STAGE 2 (MILD) (5) HTN (hypertension) Code(s): I10 - ESSENTIAL (PRIMARY) HYPERTENSION (6) Hyperlipemia Code(s): E78.5 - HYPERLIPIDEMIA, UNSPECIFIED (7) CAD (coronary artery disease) Code(s): I25.10 - ATHSCL HEART DISEASE OF [place] CORONARY ARTERY W/O ANG PCTRS Visit type - Emergency Visit Emergency Visit: Yes ED Registration Date: 05/08/17 Care time: The patient presented to the Emergency Department on the above date and was hospitalized for further evaluation of their emergent condition. - New Patient This patient is new to me today: Yes Date on this admission: 05/09/17 - Critical Care Critical Care patient: Yes Total Critical Care Time (in minutes): 35 Critical Care Statement: The care of this patient involved high complexity decision making to prevent further life threatening deterioration of the patient 's condition and/or to evaluate & treat vital organ system(s) failure or risk of failure.
[2017-05-09] MEDS: FLUTICASONE PROP 0.05% 16 GM NASAL SPRAY NS SCH (13:24)
[2017-05-09] MEDS: FENOFIBRIC ACID 135 MG CAP PO SCH (13:24)
[2017-05-09] MEDS: MAGNESIUM CL 64 MG TABLET.SA PO SCH ×2 (13:55→15:58)
[2017-05-09] MEDS: BRIMONIDINE TARTRATE 0.15% OPHTHALMIC 5 ML BOTTLE OD SCH ×3 (13:56→21:23)
[2017-05-09 14:19] LABS: ARTERIAL BLD GAS O2 SATURATION 99.2 % (90-98.9); ARTERIAL BLOOD GAS BASE EXCESS 10.1 meq/l (-2-2); ARTERIAL BLOOD GAS pH 7.37 (7.35-7.45)
[2017-05-09 15:20] LABS: ALLENS TEST POSITIVE
[2017-05-09 15:21] LABS: ART PUNCT SITE RIGHT RADIAL; LPM/O2% 1.5L; PT. ON O2? YES; TYPE OF O2 NASAL
[2017-05-09] MEDS: TIOTROPIUM BROMIDE 18 MCG/INH (DEVICE W/ 5 CAPSULES) IH SCH (15:58)
[2017-05-09] MEDS: ASCORBIC ACID 500 MG TABLET (FP) PO SCH (21:22)
[2017-05-09] MEDS: DULoxetine HCL 30 MG CAPSULE.DR (FP) PO SCH (21:22)
[2017-05-09] MEDS: DOCUSATE SODIUM 100 MG CAPSULE (FP) PO SCH (21:22)
[2017-05-09] MEDS: ATORVASTATIN CA 10 MG TABLET (FP) PO SCH (21:22)
[2017-05-10] MEDS: LEVOTHYROXINE NA 50 MCG TABLET (FP) PO SCH (06:22)
[2017-05-10 06:55] LABS: BASOPHIL 0.5 % (0-2.0); EOSINOPHIL 1.6 % (0-4.5); MCH 35.2 pg (25.7-33.7); MCHC 33.7 g/dl (32.0-35.9); MEAN CELL VOLUME 104.5 fl (80-96); MEAN PLT VOLUME 8.5 fl (7.5-11.1); NEUTROPHILS 86.2 % (42.8-82.8); PLATELET COUNT 217 K/MM3 (134-434); RDW 17.2 % (11.9-15.9)
[2017-05-10 07:20] LABS: ANION GAP 6 (8-16); CALCIUM 8.4 mg/dL (8.5-10.1); CO2 38 mmol/L (21-32); CREATININE 0.8 mg/dL (0.7-1.3); GLUCOSE,RANDOM 91 mg/dL (74-106); MAGNESIUM 2.1 mg/dL (1.8-2.4)
[2017-05-10] MEDS ORDERED: PT OWN MED DRAWER 7, Y5N ONE ×2 (09:29→22:15)
[2017-05-10] MEDS: POTASSIUM CHLORIDE TABS 20 MEQ TABLET.ER (FP) PO SCH (09:40)
[2017-05-10] MEDS: SENNOSIDES 8.6MG TABLET (FP) PO SCH (09:40)
[2017-05-10] MEDS: GABAPENTIN 300 MG CAPSULE (FP) PO SCH ×2 (09:40→22:25)
[2017-05-10] MEDS: RANITIDINE HCL 150 MG TABLET (FP) PO SCH ×2 (09:40→22:25)
[2017-05-10] MEDS: FUROSEMIDE 40 MG TABLET (FP) PO SCH (09:40)
[2017-05-10] MEDS: BRIMONIDINE TARTRATE 0.15% OPHTHALMIC 5 ML BOTTLE OD SCH ×2 (09:41→22:27)
[2017-05-10] MEDS: CHOLECALCIFEROL (VITAMIN D3) 1,000 UNIT TABLET (FP) PO SCH (09:41)
[2017-05-10] MEDS: MAGNESIUM CL 64 MG TABLET.SA PO SCH (09:41)
[2017-05-10] MEDS: FENOFIBRIC ACID 135 MG CAP PO SCH (09:41)
[2017-05-10] MEDS: DABIGATRAN ETEXILATE MESYLATE 150 MG CAPSULE PO SCH ×2 (09:42→22:25)
[2017-05-10] MEDS: FLUTICASONE PROP 0.05% 16 GM NASAL SPRAY NS SCH (09:42)
[2017-05-10] MEDS: TIOTROPIUM BROMIDE 18 MCG/INH (DEVICE W/ 5 CAPSULES) IH SCH (09:45)
[2017-05-10] MEDS ORDERED: FERROUS SO4 325 MG TABLET (FP) PO SCH (10:00)
--- NOTE | 2017-05-10 10:38 | PN ---
Progress Note (short form) - Note Progress Note: s: sob better with o2, no cp palps dizzy o: Vital Signs Period Temp Pulse Resp BP Sys/Mitchell Pulse Ox Last 24 Hr 97.6 F-97.9 F 72-81 16-23 121-152/56-100 95-96 nad no jvd irreg, s1s2 no mrg cta bl nl eff aaox3 no le e/c/c abd nt nd pos bs no jaundice diaphoresis Current Medications Generic Name Dose Route Start Last Admin Trade Name Freq PRN Reason Stop Dose Admin Acetaminophen 650 mg 05/08/17 18:51 Tylenol - PO Q6H PRN FEVER OR PAIN Ascorbic Acid 500 mg 05/08/17 22:00 05/09/17 21:22 Vitamin C - PO 500 mg HS MICHAEL Administration Atorvastatin Calcium 10 mg 05/08/17 22:00 05/09/17 21:22 Lipitor - PO 10 mg HS MICHAEL Administration Brimonidine Tartrate 1 drop 05/08/17 22:00 05/10/17 09:41 Alphagan 0.15% - OD 1 drop BID MICHAEL Administration Cholecalciferol 1,000 unit 05/09/17 10:00 05/10/17 09:41 Vitamin D3 - PO 1,000 unit DAILY MICHAEL Administration Dabigatran 150 mg 05/08/17 22:00 05/10/17 09:42 Pradaxa - PO 150 mg BID MICHAEL Administration Docusate Sodium 200 mg 05/08/17 22:00 05/09/17 21:22 Colace - PO 200 mg HS MICHAEL Administration Duloxetine HCl 60 mg 05/08/17 22:00 05/09/17 21:22 Cymbalta - PO 60 mg HS MICHAEL Administration Fenofibric Acid 135 mg 05/09/17 10:00 05/10/17 09:41 Trilipix - PO 135 mg DAILY MICHAEL Administration Ferrous Sulfate 325 mg 05/10/17 10:00 05/10/17 09:40 Feosol - PO 325 mg DAILY MICHAEL Administration Fluticasone Propionate 2 spray 05/09/17 10:00 05/10/17 09:42 Flonase - NS 2 sprays DAILY MICHAEL Administration Furosemide 40 mg 05/09/17 12:00 05/10/17 09:40 Lasix - PO 40 mg DAILY MICHAEL Administration Gabapentin 600 mg 05/08/17 22:00 05/10/17 09:40 Neurontin - PO 600 mg BID MICHAEL Administration Levothyroxine Sodium 50 mcg 05/09/17 07:00 05/10/17 06:22 Synthroid - PO 50 mcg DAILY@0700 MICHAEL Administration Magnesium Chloride 64 mg 05/09/17 10:00 05/10/17 09:41 Slow-Mag - PO 64 mg DAILY MICHAEL Administration Potassium Chloride 20 meq 05/09/17 10:00 05/10/17 09:40 K-Dur - PO 20 meq DAILY MICHAEL Administration Ranitidine HCl 150 mg 05/08/17 22:00 05/10/17 09:40 Zantac - PO 150 mg BID MICHAEL Administration Senna 2 tab 05/09/17 10:00 05/10/17 09:40 Senna - PO 2 tab DAILY MICHAEL Administration Tiotropium [place] 1 puff 05/09/17 13:00 05/10/17 09:45 Spiriva - IH Not Given DAILY MICHAEL CBC, BMP 05/10/17 06:00 05/10/17 06:00 ecg 05/09/17: afib, rate controlled, nl qtc, no ischemic changes, rbbb tele: afib, rate controlled cxr: clear lungs echo 01/2015: mild dec lvef, ant/septal HK, nl rv size, mild bi-atrial dil, mild tr, rvsp 40-50 echo 10/2016: low nl lvef, nl lv size, nl rv, mild elena, mild mr/tr, rvsp 40-50 echo 05/2017: mild dec lvef, global hk, nl lv size, nl rv, mild mr, mild ao root dil mibi 10/2016: no ischemia Assessment/Plan This is an 86 Y/O Gentleman with a PMhx that includes CKD, CAD s/p pci to rca 2004 (patent on cath 2006), PVD s/p le bypass/stents/amputations, HTN, Afib on AC, here with sob, weakness. fatigue, sob: -chronic symptom for months, being evaluated as outpt. had unremarkable stress test and echo 10/2016 -no signs acs, ce's neg x2 -bnp up but no clinical chf and outpt lasix has not improved his sxs so does not seem that chf causing his sxs -echo here similar to priors -ct chest here showing no sig chf, reports mentions left lower lobe consolidation/atx -pulm following afib: -rate controlled off meds -cont pradaxa cad s/p remote pci: -stable -no signs acs -recent mibi and echo unremarkable -cont AC, statin. no bb/acei due to low bp as outpt chronic diastolic chf: -plan as above, on po lasix currently htn: -stable off meds hld: -cont home statin
--- NOTE | 2017-05-10 11:19 | PN ---
Progress Note, Physician Chief Complaint: Mr Rivas says he is not feeling good today. Says he had an episode of coughing with sputum last night. No cp, sob, n/v currently. - Current Medication List Current Medications: Active Medications Acetaminophen (Tylenol -) 650 mg PO Q6H PRN PRN Reason: FEVER OR PAIN Ascorbic Acid (Vitamin C -) 500 mg PO [facility] Last Admin: 05/09/17 21:22 Dose: 500 mg Atorvastatin Calcium (Lipitor -) 10 mg PO [facility] Last Admin: 05/09/17 21:22 Dose: 10 mg Brimonidine Tartrate (Alphagan 0.15% -) 1 drop OD BID [facility] Last Admin: 05/10/17 09:41 Dose: 1 drop Cholecalciferol (Vitamin D3 -) 1,000 unit PO DAILY [facility] Last Admin: 05/10/17 09:41 Dose: 1,000 unit Dabigatran (Pradaxa -) 150 mg PO BID [facility] Last Admin: 05/10/17 09:42 Dose: 150 mg Docusate Sodium (Colace -) 200 mg PO [facility] Last Admin: 05/09/17 21:22 Dose: 200 mg Duloxetine HCl (Cymbalta -) 60 mg PO [facility] Last Admin: 05/09/17 21:22 Dose: 60 mg Fenofibric Acid (Trilipix -) 135 mg PO DAILY [facility] Last Admin: 05/10/17 09:41 Dose: 135 mg Ferrous Sulfate (Feosol -) 325 mg PO DAILY [facility] Last Admin: 05/10/17 09:40 Dose: 325 mg Fluticasone Propionate (Flonase -) 2 spray NS DAILY [facility] Last Admin: 05/10/17 09:42 Dose: 2 sprays Furosemide (Lasix -) 40 mg PO DAILY [facility] Last Admin: 05/10/17 09:40 Dose: 40 mg Gabapentin (Neurontin -) 600 mg PO BID [facility] Last Admin: 05/10/17 09:40 Dose: 600 mg Levofloxacin (Levaquin 750 Mg Premixed Ivpb -) 150 mls @ 150 mls/hr IVPB DAILY [facility] Lactobacillus Acidophilus (Bacid -) 1 tab PO DAILY [facility] Levothyroxine Sodium (Synthroid -) 50 mcg PO DAILY@0700 [facility] Last Admin: 05/10/17 06:22 Dose: 50 mcg Magnesium Chloride (Slow-Mag -) 64 mg PO DAILY [facility] Last Admin: 05/10/17 09:41 Dose: 64 mg Potassium Chloride (K-Dur -) 20 meq PO DAILY [facility] Last Admin: 05/10/17 09:40 Dose: 20 meq Ranitidine HCl (Zantac -) 150 mg PO BID [facility] Last Admin: 05/10/17 09:40 Dose: 150 mg Senna (Senna -) 2 tab PO DAILY [facility] Last Admin: 05/10/17 09:40 Dose: 2 tab Tiotropium [place] (Spiriva -) 1 puff IH DAILY [facility] Last Admin: 05/10/17 09:45 Dose: Not Given - Objective Vital Signs: Vital Signs Temperature 36.4 C 05/10/17 06:00 Pulse Rate 72 05/10/17 06:00 Respiratory Rate 16 05/10/17 06:00 Blood Pressure 145/66 05/10/17 06:00 O2 Sat by Pulse Oximetry (%) 95 05/09/17 20:39 Constitutional: Yes: Well Nourished, No Distress, Calm Cardiovascular: Yes: Regular Rate and Rhythm. No: Gallop, Murmur, Rub Respiratory: Yes: Regular, CTA Bilaterally. No: Rales, Rhonchi, Wheezes Gastrointestinal: Yes: Normal Bowel Sounds, Soft. No: Distention, Tenderness Extremities: Yes: WNL Edema: No Labs: CBC, BMP 05/10/17 06:00 05/10/17 06:00 Problem List - Problems (1) Pneumonia Code(s): J18.9 - PNEUMONIA, UNSPECIFIED ORGANISM Qualifiers: Laterality: right Lung location: lower lobe of lung (2) Alkalosis, metabolic Code(s): E87.3 - ALKALOSIS (3) Atrial fibrillation Code(s): I48.91 - UNSPECIFIED ATRIAL FIBRILLATION Qualifiers: Atrial fibrillation type: chronic Qualified Code(s): I48.2 - Chronic atrial fibrillation (4) CHF (congestive heart failure) Code(s): I50.9 - HEART FAILURE, UNSPECIFIED Qualifiers: Congestive heart failure type: unspecified congestive heart failure type Congestive heart failure chronicity: chronic Qualified Code(s): I50.9 - Heart failure, unspecified (5) GERD (gastroesophageal reflux disease) Code(s): K21.9 - GASTRO-ESOPHAGEAL REFLUX DISEASE WITHOUT ESOPHAGITIS (6) HTN (hypertension) Code(s): I10 - ESSENTIAL (PRIMARY) HYPERTENSION (7) Hyperlipemia Code(s): E78.5 - HYPERLIPIDEMIA, UNSPECIFIED (8) Hypothyroidism Code(s): E03.9 - HYPOTHYROIDISM, UNSPECIFIED (9) PVD (peripheral vascular disease) Code(s): I73.9 - PERIPHERAL VASCULAR DISEASE, UNSPECIFIED Assessment/Plan (1) Community acquired pneumonia Assessment/Plan: -patient currently not short of breath -however on oxygen -had cough with copious sputum overnight -CT scan shows consolidation -also with leukocytosis -no fever but with community acquired pneumonia -check blood cultures since has pleural effusions -check sputum cultures and urine for antigens -pcn allergy, start levaquin 750mg daily, day 1 -lactobacillus (2) Alkalosis, metabolic Assessment/Plan: -compensated chronic respiratory alkalosis -suspect underlying COPD considering smoking history -will need outpatient PFTs and pulmonary follow up Code(s): E87.3 - ALKALOSIS (3) Atrial fibrillation Assessment/Plan: -controlled -continue pradaxa Code(s): I48.91 - UNSPECIFIED ATRIAL FIBRILLATION Qualifiers: Atrial fibrillation type: chronic Qualified Code(s): I48.2 - Chronic atrial fibrillation (4) CHF (congestive heart failure) Assessment/Plan: -ECHO reviewed and cardiology following -not in exacerbation -continue oral lasix Code(s): I50.9 - HEART FAILURE, UNSPECIFIED Qualifiers: Congestive heart failure type: unspecified congestive heart failure type Congestive heart failure chronicity: chronic Qualified Code(s): I50.9 - Heart failure, unspecified (5) GERD (gastroesophageal reflux disease) Assessment/Plan: -continue zantac Code(s): K21.9 - GASTRO-ESOPHAGEAL REFLUX DISEASE WITHOUT ESOPHAGITIS (6) HTN (hypertension) Assessment/Plan: -controlled -continue lasix Code(s): I10 - ESSENTIAL (PRIMARY) HYPERTENSION (7) Hyperlipemia Assessment/Plan: -continue fenofibrate and lipitor Code(s): E78.5 - HYPERLIPIDEMIA, UNSPECIFIED (8) Hypothyroidism Assessment/Plan: -continue synthroid Code(s): E03.9 - HYPOTHYROIDISM, UNSPECIFIED (9) PVD (peripheral vascular disease) Assessment/Plan: -on pradaxa -does not complain of claudication Code(s): I73.9 - PERIPHERAL VASCULAR DISEASE, UNSPECIFIED
[2017-05-10] MEDS: LACTOBACILLUS ACIDOPHILUS 1 EACH TAB (FP) PO SCH (11:35)
[2017-05-10] MEDS: LEVOFLOXACIN 750 MG IVPB 150 ML IVPB SCH (11:35)
--- NOTE | 2017-05-10 12:08 | PN ---
Progress Note, Physician History of Present Illness: pulmonary alert,feeling better,-resp distress,+cough - Current Medication List Current Medications: Active Medications Acetaminophen (Tylenol -) 650 mg PO Q6H PRN PRN Reason: FEVER OR PAIN Ascorbic Acid (Vitamin C -) 500 mg PO [facility] Last Admin: 05/09/17 21:22 Dose: 500 mg Atorvastatin Calcium (Lipitor -) 10 mg PO [facility] Last Admin: 05/09/17 21:22 Dose: 10 mg Brimonidine Tartrate (Alphagan 0.15% -) 1 drop OD BID [facility] Last Admin: 05/10/17 09:41 Dose: 1 drop Cholecalciferol (Vitamin D3 -) 1,000 unit PO DAILY [facility] Last Admin: 05/10/17 09:41 Dose: 1,000 unit Dabigatran (Pradaxa -) 150 mg PO BID [facility] Last Admin: 05/10/17 09:42 Dose: 150 mg Docusate Sodium (Colace -) 200 mg PO [facility] Last Admin: 05/09/17 21:22 Dose: 200 mg Duloxetine HCl (Cymbalta -) 60 mg PO [facility] Last Admin: 05/09/17 21:22 Dose: 60 mg Fenofibric Acid (Trilipix -) 135 mg PO DAILY [facility] Last Admin: 05/10/17 09:41 Dose: 135 mg Fluticasone Propionate (Flonase -) 2 spray NS DAILY [facility] Last Admin: 05/10/17 09:42 Dose: 2 sprays Furosemide (Lasix -) 40 mg PO DAILY [facility] Last Admin: 05/10/17 09:40 Dose: 40 mg Gabapentin (Neurontin -) 600 mg PO BID [facility] Last Admin: 05/10/17 09:40 Dose: 600 mg Levofloxacin (Levaquin 750 Mg Premixed Ivpb -) 150 mls @ 150 mls/hr IVPB DAILY [facility] Last Admin: 05/10/17 11:35 Dose: 150 mls/hr Lactobacillus Acidophilus (Bacid -) 1 tab PO DAILY [facility] Last Admin: 05/10/17 11:35 Dose: 1 tab Levothyroxine Sodium (Synthroid -) 50 mcg PO DAILY@0700 [facility] Last Admin: 05/10/17 06:22 Dose: 50 mcg Magnesium Chloride (Slow-Mag -) 64 mg PO DAILY [facility] Last Admin: 05/10/17 09:41 Dose: 64 mg Potassium Chloride (K-Dur -) 20 meq PO DAILY [facility] Last Admin: 05/10/17 09:40 Dose: 20 meq Ranitidine HCl (Zantac -) 150 mg PO BID [facility] Last Admin: 05/10/17 09:40 Dose: 150 mg Senna (Senna -) 2 tab PO DAILY [facility] Last Admin: 05/10/17 09:40 Dose: 2 tab Tiotropium [place] (Spiriva -) 1 puff IH DAILY [facility] Last Admin: 05/10/17 09:45 Dose: Not Given - Objective Vital Signs: Vital Signs Temperature 97.6 F 05/10/17 06:00 Pulse Rate 72 05/10/17 06:00 Respiratory Rate 16 05/10/17 06:00 Blood Pressure 145/66 05/10/17 06:00 O2 Sat by Pulse Oximetry (%) 95 05/09/17 20:39 Constitutional: Yes: Calm, Thin Eyes: Yes: WNL HENT: Yes: WNL Neck: Yes: WNL Cardiovascular: Yes: Pulse Irregular, S1, S2 Respiratory: Yes: Rales (bibasilar rales) Gastrointestinal: Yes: Normal Bowel Sounds, Soft Extremities: Yes: WNL Edema: No Labs: CBC, BMP 05/10/17 06:00 05/10/17 06:00 Assessment/Plan Problem List - Problems (1) Shortness of breath Code(s): R06.02 - SHORTNESS OF BREATH (2) Atrial fibrillation Code(s): I48.91 - UNSPECIFIED ATRIAL FIBRILLATION (3) CHF (congestive heart failure) Code(s): I50.9 - HEART FAILURE, UNSPECIFIED (4) HTN (hypertension) Code(s): I10 - ESSENTIAL (PRIMARY) HYPERTENSION (5) Malignant neoplasm of skin of [place] Code(s): C44.309 - UNSP MALIGNANT NEOPLASM OF SKIN OF OTHER PARTS OF FACE (6) PVD (peripheral vascular disease) Code(s): I73.9 - PERIPHERAL VASCULAR DISEASE, UNSPECIFIED 7 PNEUMONIA Assessment/Plan O2 a Antibiotics ABX Spiriva BD TX PRN [employer]O [employer]
[2017-05-10] MEDS ORDERED: FERROUS SULFATE PO SCH (22:00)
[2017-05-10] MEDS: ASCORBIC ACID 500 MG TABLET (FP) PO SCH (22:25)
[2017-05-10] MEDS: ATORVASTATIN CA 10 MG TABLET (FP) PO SCH (22:25)
[2017-05-10] MEDS: DULoxetine HCL 30 MG CAPSULE.DR (FP) PO SCH (22:25)
[2017-05-10] MEDS: FERROUS SULFATE PO SCH (22:26)
[2017-05-10] MEDS: DOCUSATE SODIUM 100 MG CAPSULE (FP) PO SCH (22:27)
[2017-05-11] MEDS: LEVOTHYROXINE NA 50 MCG TABLET (FP) PO SCH (06:04)
[2017-05-11 08:14] LABS: MCHC 33.7 g/dl (32.0-35.9); MEAN CELL VOLUME 103.9 fl (80-96); MEAN PLT VOLUME 8.6 fl (7.5-11.1); PLATELET COUNT 201 K/MM3 (134-434); RDW 17.1 % (11.9-15.9)
--- NOTE | 2017-05-11 08:32 | PN ---
Physical Exam: SUBJECTIVE: Patient seen and examined oob to chair. Daughter present. Voices no complaints. Has not been walking. OBJECTIVE: Vital Signs Period Temp Pulse Resp BP Sys/Mitchell Pulse Ox Last 24 Hr 96.8 F-98.3 F 72-98 16-20 104-145/44-67 95-100 GENERAL: The patient is awake, alert, and fully oriented, in no acute distress. HEAD: Normal with no signs of trauma. LUNGS: Diminished sounds on the right HEART: Regular rate and rhythm, S1, S2 + murmur ABDOMEN: Soft, nontender, nondistended, normoactive bowel sounds EXTREMITIES: 2+ pulses, warm, well-perfused, no edema. NEUROLOGICAL: Cranial nerves II through XII grossly intact. Normal speech, gait not observed. Laboratory Results - last 24 hr 05/11/17 06:00 WBC 23.0 H D RBC 2.97 L Hgb 10.4 L Hct 30.9 L MCV 103.9 H MCH 35.0 H MCHC 33.7 RDW 17.1 H Plt Count 201 MPV 8.6 Neutrophils % Y Lymphocytes % Y Active Medications Generic Name Dose Route Start Last Admin Trade Name Freq PRN Reason Stop Dose Admin Acetaminophen 650 mg 05/08/17 18:51 Tylenol - PO Q6H PRN FEVER OR PAIN Ascorbic Acid 500 mg 05/08/17 22:00 05/10/17 22:25 Vitamin C - PO 500 mg HS MICHAEL Administration Atorvastatin Calcium 10 mg 05/08/17 22:00 05/10/17 22:25 Lipitor - PO 10 mg HS MICHAEL Administration Brimonidine Tartrate 1 drop 05/08/17 22:00 05/10/17 22:27 Alphagan 0.15% - OD 1 drop BID MICHAEL Administration Cholecalciferol 1,000 unit 05/09/17 10:00 05/10/17 09:41 Vitamin D3 - PO 1,000 unit DAILY MICHAEL Administration Dabigatran 150 mg 05/08/17 22:00 05/10/17 22:25 Pradaxa - PO 150 mg BID MICHAEL Administration Docusate Sodium 200 mg 05/08/17 22:00 05/10/17 22:27 Colace - PO 200 mg HS MICHAEL Administration Duloxetine HCl 60 mg 05/08/17 22:00 05/10/17 22:25 Cymbalta - PO 60 mg HS MICHAEL Administration Fenofibric Acid 135 mg 05/09/17 10:00 05/10/17 09:41 Trilipix - PO 135 mg DAILY MICHAEL Administration Fluticasone Propionate 2 spray 05/09/17 10:00 05/10/17 09:42 Flonase - NS 2 sprays DAILY MICHAEL Administration Furosemide 40 mg 05/09/17 12:00 05/10/17 09:40 Lasix - PO 40 mg DAILY MICHAEL Administration Gabapentin 600 mg 05/08/17 22:00 05/10/17 22:25 Neurontin - PO 600 mg BID MICHAEL Administration Levofloxacin 150 mls @ 150 mls/hr 05/10/17 11:00 05/10/17 11:35 Levaquin 750 Mg Premixed Ivpb - IVPB 150 mls/hr DAILY MICHAEL Administration Lactobacillus Acidophilus 1 tab 05/10/17 11:00 05/10/17 11:35 Bacid - PO 1 tab DAILY MICHAEL Administration Levothyroxine Sodium 50 mcg 05/09/17 07:00 05/11/17 06:04 Synthroid - PO 50 mcg DAILY@0700 MICHAEL Administration Magnesium Chloride 64 mg 05/09/17 10:00 05/10/17 09:41 Slow-Mag - PO 64 mg DAILY MICHAEL Administration Slow Release Ferrous 1 each 05/10/17 22:00 05/10/17 22:26 Sulfate (45mg PO 1 each Elemental Feso4) BID MICHAEL Administration Potassium Chloride 20 meq 05/09/17 10:00 05/10/17 09:40 K-Dur - PO 20 meq DAILY MICHAEL Administration Ranitidine HCl 150 mg 05/08/17 22:00 05/10/17 22:25 Zantac - PO 150 mg BID MICHAEL Administration Senna 2 tab 05/09/17 10:00 05/10/17 09:40 Senna - PO 2 tab DAILY MICHAEL Administration Tiotropium [place] 1 puff 05/09/17 13:00 05/10/17 09:45 Spiriva - IH Not Given DAILY MICHAEL ASSESSMENT/PLAN: 86 year-old male with a PMH significant for CAD s/p stent, PVD s/p bypass/stents /amputtions, afib on Pradaxa, and CKD. Admitted for pneumonia. Community acquired pneumonia --05/09 CT: LLL patchy consolidation; minimal bilateral pleural effusions --sharp rise in WBC today to 23k --blood cultures pending; crp pending --d/c levofloxacin, start ertapenem and vanc per ID --duonebs --trial of Spiriva per pulm Atrial fibrillation --rate well-controlled --continue Pradaxa Chronic systolic heart failure --05/09 Eco: LV mildly reduced, mild global hypokinesis; RV normal; mild MR; trace MR --continue PO lasix, K-dur Coronary artery disease --negative troponins x 3 --recent MIBI and echo unremarkable --continue fenofibric acid, Lipitor, Pradaxa --is not on beta kaylin or ACEI due to low BP as outpatient GERD --continue Zantac Hypertension --BP well-controlled on no meds other than Lasix Hyperlipemia --continue fenofibrate and Lipitor Hypothyroidism --TSH wnl --continue levothyroxine Peripheral vascular disease --no acute issues --continue Pradaxa DVT prophylaxis: on Pradaxa Visit type - Emergency Visit Emergency Visit: Yes ED Registration Date: 05/08/17 Care time: The patient presented to the Emergency Department on the above date and was hospitalized for further evaluation of their emergent condition. - New Patient This patient is new to me today: Yes Date on this admission: 05/11/17 - Critical Care Critical Care patient: No
[2017-05-11 08:34] LABS: ANION GAP 11 (8-16); CALCIUM 8.4 mg/dL (8.5-10.1); CO2 35 mmol/L (21-32); GLUCOSE,RANDOM 77 mg/dL (74-106)
[2017-05-11 08:35] LABS: CREATININE 0.9 mg/dL (0.7-1.3); PHOSPHOROUS 3.4 mg/dL (2.5-4.9)
[2017-05-11] MEDS ORDERED: PT OWN MED DRAWER 7, Y5N ONE ×2 (09:27→21:34)
[2017-05-11] MEDS ORDERED: CEFEPIME 2 GM in DEXTROSE 5%-WATER 100 ML IVPB ONE (09:30)
[2017-05-11] MEDS ORDERED: VANCOMYCIN 1,000 MG in DEXTROSE 5%-WATER - 250 ML IVPB ONE (10:00)
[2017-05-11] MEDS: FLUTICASONE PROP 0.05% 16 GM NASAL SPRAY NS SCH (10:25)
[2017-05-11] MEDS: DABIGATRAN ETEXILATE MESYLATE 150 MG CAPSULE PO SCH ×2 (10:26→21:37)
[2017-05-11] MEDS: BRIMONIDINE TARTRATE 0.15% OPHTHALMIC 5 ML BOTTLE OD SCH ×2 (10:27→21:37)
[2017-05-11] MEDS: FENOFIBRIC ACID 135 MG CAP PO SCH (10:27)
[2017-05-11] MEDS: LACTOBACILLUS ACIDOPHILUS 1 EACH TAB (FP) PO SCH (10:28)
[2017-05-11] MEDS: POTASSIUM CHLORIDE TABS 20 MEQ TABLET.ER (FP) PO SCH (10:28)
[2017-05-11] MEDS: FUROSEMIDE 40 MG TABLET (FP) PO SCH (10:28)
[2017-05-11] MEDS: LEVOFLOXACIN 750 MG IVPB 150 ML IVPB SCH (10:28)
[2017-05-11] MEDS: GABAPENTIN 300 MG CAPSULE (FP) PO SCH ×2 (10:31→21:37)
[2017-05-11] MEDS: SENNOSIDES 8.6MG TABLET (FP) PO SCH (10:31)
[2017-05-11] MEDS: MAGNESIUM CL 64 MG TABLET.SA PO SCH (10:32)
[2017-05-11] MEDS: CHOLECALCIFEROL (VITAMIN D3) 1,000 UNIT TABLET (FP) PO SCH (10:32)
[2017-05-11] MEDS: RANITIDINE HCL 150 MG TABLET (FP) PO SCH ×2 (10:32→21:36)
[2017-05-11] MEDS: FERROUS SULFATE PO SCH ×2 (10:32→21:37)
[2017-05-11 10:52] LABS: TOTAL CELLS COUNTED 100
--- NOTE | 2017-05-11 11:07 | PN ---
Progress Note, Physician History of Present Illness: No complaints "I feel very good" Tele: Afib 70s. I/O (+) 175 - Current Medication List Current Medications: Active Medications Acetaminophen (Tylenol -) 650 mg PO Q6H PRN PRN Reason: FEVER OR PAIN Ascorbic Acid (Vitamin C -) 500 mg PO HS [facility] Last Admin: 05/10/17 22:25 Dose: 500 mg Atorvastatin Calcium (Lipitor -) 10 mg PO HS [facility] Last Admin: 05/10/17 22:25 Dose: 10 mg Brimonidine Tartrate (Alphagan 0.15% -) 1 drop OD BID [facility] Last Admin: 05/11/17 10:27 Dose: 1 drop Cefepime HCl (Maxipime (Restricted To Id) -) 2 gm IVPB Q8H-IV MICHAEL PRN Reason: Protocol Cholecalciferol (Vitamin D3 -) 1,000 unit PO DAILY [facility] Last Admin: 05/11/17 10:32 Dose: 1,000 unit Dabigatran (Pradaxa -) 150 mg PO BID [facility] Last Admin: 05/11/17 10:26 Dose: 150 mg Docusate Sodium (Colace -) 200 mg PO HS [facility] Last Admin: 05/10/17 22:27 Dose: 200 mg Duloxetine HCl (Cymbalta -) 60 mg PO HS [facility] Last Admin: 05/10/17 22:25 Dose: 60 mg Fenofibric Acid (Trilipix -) 135 mg PO DAILY [facility] Last Admin: 05/11/17 10:27 Dose: 135 mg Fluticasone Propionate (Flonase -) 2 spray NS DAILY [facility] Last Admin: 05/11/17 10:25 Dose: 2 sprays Furosemide (Lasix -) 40 mg PO DAILY [facility] Last Admin: 05/11/17 10:28 Dose: 40 mg Gabapentin (Neurontin -) 600 mg PO BID [facility] Last Admin: 05/11/17 10:31 Dose: 600 mg Levofloxacin (Levaquin 750 Mg Premixed Ivpb -) 150 mls @ 150 mls/hr IVPB DAILY [facility] Last Admin: 05/11/17 10:28 Dose: 150 mls/hr Vancomycin HCl 1,000 mg/ (Dextrose) 250 mls @ 166.667 mls/hr IVPB BID [facility] PRN Reason: Protocol Vancomycin HCl 1,000 mg/ (Dextrose) 250 mls @ 166.667 mls/hr IVPB ONCE ONE PRN Reason: Protocol Stop: 05/11/17 11:29 Last Admin: 05/11/17 10:25 Dose: 166.667 mls/hr Lactobacillus Acidophilus (Bacid -) 1 tab PO DAILY [facility] Last Admin: 05/11/17 10:28 Dose: 1 tab Levothyroxine Sodium (Synthroid -) 50 mcg PO DAILY@0700 [facility] Last Admin: 05/11/17 06:04 Dose: 50 mcg Magnesium Chloride (Slow-Mag -) 64 mg PO DAILY [facility] Last Admin: 05/11/17 10:32 Dose: 64 mg Slow Release Ferrous Sulfate (45mg Elemental Feso4) 1 each PO BID [facility] Last Admin: 05/11/17 10:32 Dose: 1 each Potassium Chloride (K-Dur -) 20 meq PO DAILY [facility] Last Admin: 05/11/17 10:28 Dose: 20 meq Ranitidine HCl (Zantac -) 150 mg PO BID [facility] Last Admin: 05/11/17 10:32 Dose: 150 mg Senna (Senna -) 2 tab PO DAILY [facility] Last Admin: 05/11/17 10:31 Dose: 2 tab Tiotropium Lutz (Spiriva -) 1 puff IH DAILY [facility] Last Admin: 05/10/17 09:45 Dose: Not Given - Objective Vital Signs: Vital Signs Temperature 98.3 F 05/11/17 05:52 Pulse Rate 73 05/11/17 05:52 Respiratory Rate 16 05/11/17 05:52 Blood Pressure 130/48 05/11/17 05:52 O2 Sat by Pulse Oximetry (%) 98 05/10/17 22:00 Constitutional: Yes: No Distress, Calm Eyes: Yes: WNL HENT: Yes: Other (Dried blood in left ear) Cardiovascular: Yes: Pulse Irregular Respiratory: Yes: CTA Bilaterally Gastrointestinal: Yes: Normal Bowel Sounds Extremities: Yes: WNL Edema: No Labs: CBC, BMP 05/11/17 06:00 05/11/17 06:00 Assessment/Plan This is an 86 Y/O Gentleman with a PMhx that includes CKD, CAD s/p pci to rca 2004 (patent on cath 2006), PVD s/p le bypass/stents/amputations, HTN, Afib on AC, here with sob, weakness. fatigue, sob: -bnp up but no clinical chf and outpt lasix has not improved his sxs so does not seem that chf causing his sxs -pulm following afib: -rate controlled off meds -cont pradaxa cad s/p remote pci: -stable -no signs acs -cont AC, statin. no bb/acei due to low bp as outpt chronic diastolic chf: -plan as above, on po lasix currently, Weight today 151 (156) htn: -stable off meds hld: -cont home statin
--- NOTE | 2017-05-11 11:34 | PN ---
Progress Note, Physician History of Present Illness: pulmonary alert,comfortable,-resp distress - Current Medication List Current Medications: Active Medications Acetaminophen (Tylenol -) 650 mg PO Q6H PRN PRN Reason: FEVER OR PAIN Ascorbic Acid (Vitamin C -) 500 mg PO HS [facility] Last Admin: 05/10/17 22:25 Dose: 500 mg Atorvastatin Calcium (Lipitor -) 10 mg PO HS [facility] Last Admin: 05/10/17 22:25 Dose: 10 mg Brimonidine Tartrate (Alphagan 0.15% -) 1 drop OD BID [facility] Last Admin: 05/11/17 10:27 Dose: 1 drop Cefepime HCl (Maxipime (Restricted To Id) -) 2 gm IVPB Q8H-IV MICHAEL PRN Reason: Protocol Cholecalciferol (Vitamin D3 -) 1,000 unit PO DAILY [facility] Last Admin: 05/11/17 10:32 Dose: 1,000 unit Dabigatran (Pradaxa -) 150 mg PO BID [facility] Last Admin: 05/11/17 10:26 Dose: 150 mg Docusate Sodium (Colace -) 200 mg PO [facility] Last Admin: 05/10/17 22:27 Dose: 200 mg Duloxetine HCl (Cymbalta -) 60 mg PO HS [facility] Last Admin: 05/10/17 22:25 Dose: 60 mg Fenofibric Acid (Trilipix -) 135 mg PO DAILY [facility] Last Admin: 05/11/17 10:27 Dose: 135 mg Fluticasone Propionate (Flonase -) 2 spray NS DAILY [facility] Last Admin: 05/11/17 10:25 Dose: 2 sprays Furosemide (Lasix -) 40 mg PO DAILY [facility] Last Admin: 05/11/17 10:28 Dose: 40 mg Gabapentin (Neurontin -) 600 mg PO BID [facility] Last Admin: 05/11/17 10:31 Dose: 600 mg Levofloxacin (Levaquin 750 Mg Premixed Ivpb -) 150 mls @ 150 mls/hr IVPB DAILY [facility] Last Admin: 05/11/17 10:28 Dose: 150 mls/hr Vancomycin HCl 1,000 mg/ (Dextrose) 250 mls @ 166.667 mls/hr IVPB BID MICHAEL PRN Reason: Protocol Lactobacillus Acidophilus (Bacid -) 1 tab PO DAILY [facility] Last Admin: 05/11/17 10:28 Dose: 1 tab Levothyroxine Sodium (Synthroid -) 50 mcg PO DAILY@0700 [facility] Last Admin: 05/11/17 06:04 Dose: 50 mcg Magnesium Chloride (Slow-Mag -) 64 mg PO DAILY [facility] Last Admin: 05/11/17 10:32 Dose: 64 mg Slow Release Ferrous Sulfate (45mg Elemental Feso4) 1 each PO BID [facility] Last Admin: 05/11/17 10:32 Dose: 1 each Potassium Chloride (K-Dur -) 20 meq PO DAILY [facility] Last Admin: 05/11/17 10:28 Dose: 20 meq Ranitidine HCl (Zantac -) 150 mg PO BID [facility] Last Admin: 05/11/17 10:32 Dose: 150 mg Senna (Senna -) 2 tab PO DAILY [facility] Last Admin: 05/11/17 10:31 Dose: 2 tab Tiotropium Ora (Spiriva -) 1 puff IH DAILY [facility] Last Admin: 05/10/17 09:45 Dose: Not Given - Objective Vital Signs: Vital Signs Temperature 97.4 F L 05/11/17 10:00 Pulse Rate 80 05/11/17 10:00 Respiratory Rate 20 05/11/17 10:00 Blood Pressure 117/70 05/11/17 10:00 O2 Sat by Pulse Oximetry (%) 98 05/10/17 22:00 Constitutional: Yes: Calm, Thin Eyes: Yes: WNL HENT: Yes: WNL Neck: Yes: WNL Cardiovascular: Yes: Pulse Irregular, S1, S2 Respiratory: Yes: Rales (1/2 bilateral rales 1/2 up) Gastrointestinal: Yes: Normal Bowel Sounds, Soft Extremities: Yes: WNL Edema: No Labs: CBC, BMP 05/11/17 06:00 05/11/17 06:00 Assessment/Plan Problem List - Problems (1) Shortness of breath Code(s): R06.02 - SHORTNESS OF BREATH (2) Atrial fibrillation Code(s): I48.91 - UNSPECIFIED ATRIAL FIBRILLATION (3) CHF (congestive heart failure) Code(s): I50.9 - HEART FAILURE, UNSPECIFIED (4) HTN (hypertension) Code(s): I10 - ESSENTIAL (PRIMARY) HYPERTENSION (5) Malignant neoplasm of skin of samaritan Code(s): C44.309 - UNSP MALIGNANT NEOPLASM OF SKIN OF OTHER PARTS OF FACE (6) PVD (peripheral vascular disease) Code(s): I73.9 - PERIPHERAL VASCULAR DISEASE, UNSPECIFIED 7 PNEUMONIA Assessment/Plan O2 a Antibiotics ABX Spiriva BD [place] PRN AC DR PELLETIER
[2017-05-11 11:50] LABS: C-REACTIVE PROTEIN 8.4 MG/DL (0.00-0.3)
[2017-05-11 14:45] LABS: ARTERIAL BLD GAS O2 SATURATION 99.4 % (90-98.9); ARTERIAL BLOOD GAS BASE EXCESS 10.2 meq/l (-2-2); ARTERIAL BLOOD GAS HCO3 35.5 meq/L (22-26); ARTERIAL BLOOD GAS pH 7.44 (7.35-7.45)
[2017-05-11 14:46] LABS: ALLENS TEST POSITIVE; ART PUNCT SITE LEFT RADIAL; LPM/O2% 2L; PT. ON O2? YES
[2017-05-11 14:47] LABS: TYPE OF O2 N/C
[2017-05-11] MEDS: TIOTROPIUM BROMIDE 18 MCG/INH (DEVICE W/ 5 CAPSULES) IH SCH (15:00)
--- NOTE | 2017-05-11 15:04 | CON.ID ---
Consult Consult Specialty:: infectious diseases Reason for Consultation:: leukocytosis,pna - History of Present Illness History of Present Illness: 86 year old male who comes in with shortness of breath. , however over the past 4 days he noted that he was both short of breath on exertion and at rest. He says he is now walking less than 1/2 block and getting short of breath, but what was really concerning to him is that he was short of breath even at rest. He says he would be sitting on the couch and suddenly get short of breath. It would last for a few minutes and would sometimes resolve with certain movements , but not always. He says sometimes it would go away on its own. He also had difficulty breathing while lying down and would need to turn to the side. Because of this he came in for further evaluation. Aside from this he is without complaint. He denies fevers, chills, lightheadedness, dizziness, passing out, chest pain, coughing, sick contacts, abdominal pain, nausea, vomiting, diarrhea, constipation, difficulty or pain on urination, or leg swelling. Currently he says he feels fine and is not short of breath, he says the shortness of breath resolved with oxygen. 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 Cardio/Vascular: Yes: AFIB, CAD, CHF, HTN, Hyperlipdemia Pulmonary: Yes: Pneumonia Gastrointestinal: Yes: Diverticulosis, GI Bleed, Hemorrhoids, Hiatal Hernia Renal/: Yes: Renal Inusuff Infectious Disease: Yes: Other (previous sepsis) Musculoskeletal: Yes: Osteoarthritis, Other (right foot drop) ENT: Yes: Other (cant swallow even sips of H2O) Dermatology: Yes: Basal Cell (face), Other (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) - Past Surgical History Past Surgical History: Yes: Bypass (left fem-pop), CABG (x3 2004), Cholecystectomy, Joint Replacement (bilateral knees), Orchiectomy (unilateral for testicular injury at 18yrs of age) - Alcohol/Substance Use Hx Alcohol Use: No History of Substance Use: reports: None - Smoking History Smoking history: Former smoker Have you smoked in the past 12 months: No Aproximately how many cigarettes per day: 0 If you are a former smoker, when did you quit?: 1983 - Social History Usual Living Arrangement: With Spouse ADL: Support Services (In [place] post) 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) History of Recent Travel: No Home Medications - Allergies Allergies/Adverse Reactions: Allergies Allergy/AdvReac Type Severity Reaction Status Date / Time Penicillins Allergy Intermediate Rash Verified 05/08/17 14:14 - Home Medications Home Medications: Ambulatory Orders Alpha Lipoic Acid [Lipoic Acid] 200 mg PO DAILY 12/12/15 Ascorbic Acid [Vitamin C] 500 mg PO HS 12/12/15 Atorvastatin Ca [Lipitor] 10 mg PO HS 12/12/15 Brimonidine Tartrate [Alphagan 0.15% -] 1 drop OD BID 12/12/15 Cholecalciferol (Vitamin D3) [Vitamin D] 1,000 unit PO DAILY 12/12/15 Dabigatran Etexilate Mesylate [Pradaxa -] 150 mg PO BID 12/12/15 Docusate Sodium [Colace -] 200 mg PO HS 12/12/15 Duloxetine HCl [Cymbalta] 60 mg PO HS 12/12/15 Fenofibrate Nanocrystallized [Tricor] 145 mg PO DAILY 12/12/15 Ferrous Sulfate [Slow Release Iron] 45 mg PO DAILY 12/12/15 Fluticasone Prop 0.05% Nasal [Flonase -] 2 spray NS DAILY 12/12/15 Furosemide [Lasix -] 40 mg PO ASDIR 12/12/15 Levomefolate/B6/B12/Algal Oil [Metanx Capsule] 1 each PO BID 12/12/15 Levothyroxine [Synthroid -] 50 mcg PO DAILY 12/12/15 Magnesium Chloride [Magnesium Dr] 64 mg PO DAILY 12/12/15 Omeprazole [Prilosec] 40 mg PO DAILY 12/12/15 Potassium Chloride 20 meq PO DAILY 12/12/15 Sennosides [Senna Concentrate] 17.2 mg PO DAILY 12/12/15 Butenafine HCl [Mentax] 30 gm TP BID 05/08/17 Gabapentin 600 mg PO BID 05/08/17 Melatonin 3 mg PO DAILY 05/08/17 Family Disease History - Family Disease History Family Disease History: CA: Son (1 son from cancer, 1 son from alcohol abuse), Other: Father (old age), Mother (old age), Son Review of Systems - Review of Systems Constitutional: reports: No Symptoms Eyes: reports: No Symptoms HENT: reports: No Symptoms Neck: reports: No Symptoms Cardiovascular: reports: Shortness of Breath Respiratory: reports: Cough, SOB, SOB on Exertion Gastrointestinal: reports: No Symptoms Genitourinary: reports: No Symptoms Musculoskeletal: reports: No Symptoms Integumentary: reports: No Symptoms Neurological: reports: No Symptoms Endocrine: reports: No Symptoms Hematology/Lymphatic: reports: No Symptoms Psychiatric: reports: No Symptoms Physical Exam Vital Signs: Vital Signs Temperature 97.4 F L 05/11/17 10:00 Pulse Rate 80 05/11/17 10:00 Respiratory Rate 20 05/11/17 10:00 Blood Pressure 117/70 05/11/17 10:00 O2 Sat by Pulse Oximetry (%) 90 L 05/11/17 09:00 Constitutional: Yes: Well Nourished, No Distress, Calm Eyes: Yes: Conjunctiva Clear HENT: Yes: Atraumatic Neck: Yes: Supple, Trachea Midline Cardiovascular: Yes: Regular Rate and Rhythm, S1, S2 Respiratory: Yes: Regular, Poor Air Entry, Other (crackles) Gastrointestinal: Yes: Normal Bowel Sounds, Soft Musculoskeletal: Yes: WNL Extremities: Yes: WNL Neurological: Yes: Alert, Oriented Psychiatric: Yes: Alert, Oriented Labs: CBC, BMP 05/11/17 06:00 05/11/17 06:00 Imaging - Results Chest X-ray: Report Reviewed, Image Reviewed Cat Scan: Report Reviewed, Image Reviewed Assessment/Plan Problem List - Problems (1) Pneumonia Code(s): J18.9 - PNEUMONIA, UNSPECIFIED ORGANISM Qualifiers: Laterality: right Lung location: lower lobe of lung (2) Alkalosis, metabolic Code(s): E87.3 - ALKALOSIS (3) Atrial fibrillation Code(s): I48.91 - UNSPECIFIED ATRIAL FIBRILLATION Qualifiers: Atrial fibrillation type: chronic Qualified Code(s): I48.2 - Chronic atrial fibrillation (4) CHF (congestive heart failure) Code(s): I50.9 - HEART FAILURE, UNSPECIFIED Qualifiers: Congestive heart failure type: unspecified congestive heart failure type Congestive heart failure chronicity: chronic Qualified Code(s): I50.9 - Heart failure, unspecified (5) GERD (gastroesophageal reflux disease) Code(s): K21.9 - GASTRO-ESOPHAGEAL REFLUX DISEASE WITHOUT ESOPHAGITIS (6) HTN (hypertension) Code(s): I10 - ESSENTIAL (PRIMARY) HYPERTENSION (7) Hyperlipemia Code(s): E78.5 - HYPERLIPIDEMIA, UNSPECIFIED (8) Hypothyroidism Code(s): E03.9 - HYPOTHYROIDISM, UNSPECIFIED (9) PVD (peripheral vascular disease) Code(s): I73.9 - PERIPHERAL VASCULAR DISEASE, UNSPECIFIED Assessment/Plan (1) Community acquired pneumonia (2) Alkalosis, metabolic Code(s): E87.3 - ALKALOSIS (3) Atrial fibrillation Code(s): I48.91 - UNSPECIFIED ATRIAL FIBRILLATION Qualifiers: Atrial fibrillation type: chronic Qualified Code(s): I48.2 - Chronic atrial fibrillation (4) CHF (congestive heart failure) Code(s): I50.9 - HEART FAILURE, UNSPECIFIED Qualifiers: Congestive heart failure type: unspecified congestive heart failure type Congestive heart failure chronicity: chronic Qualified Code(s): I50.9 - Heart failure, unspecified (5) GERD (gastroesophageal reflux disease) Code(s): K21.9 - GASTRO-ESOPHAGEAL REFLUX DISEASE WITHOUT ESOPHAGITIS (6) HTN (hypertension) Code(s): I10 - ESSENTIAL (PRIMARY) HYPERTENSION (7) Hyperlipemia Code(s): E78.5 - HYPERLIPIDEMIA, UNSPECIFIED (8) Hypothyroidism Code(s): E03.9 - HYPOTHYROIDISM, UNSPECIFIED (9) PVD (peripheral vascular disease) Code(s): I73.9 - PERIPHERAL VASCULAR DISEASE, UNSPECIFIED plan continue abx incentive kimberly will check vanco trough tomorrow improving wbc still on the higher side
[2017-05-11] MEDS ORDERED: CEFEPIME HCL 2 GM VIAL (RESTRICTED TO ID) IVPB SCH (18:00)
[2017-05-11] MEDS: ERTAPENEM SODIUM 1 GM in SODIUM CHLORIDE 50 ML IVPB SCH (18:49)
[2017-05-11] MEDS: ASCORBIC ACID 500 MG TABLET (FP) PO SCH (21:36)
[2017-05-11] MEDS: DULoxetine HCL 30 MG CAPSULE.DR (FP) PO SCH (21:37)
[2017-05-11] MEDS: DOCUSATE SODIUM 100 MG CAPSULE (FP) PO SCH (21:37)
[2017-05-11] MEDS: ATORVASTATIN CA 10 MG TABLET (FP) PO SCH (21:37)
[2017-05-11] MEDS: ALBUTEROL SO4 2.5/IPRATROPIUM 0.5 INH SOL 3 ML VIAL.NEB. NEB SCH (21:40)
[2017-05-11] MEDS ORDERED: VANCOMYCIN 1,000 MG in DEXTROSE 5%-WATER - 250 ML IVPB SCH (22:00)
[2017-05-12] MEDS: LEVOTHYROXINE NA 50 MCG TABLET (FP) PO SCH (06:11)
[2017-05-12] MEDS: ALBUTEROL SO4 2.5/IPRATROPIUM 0.5 INH SOL 3 ML VIAL.NEB. NEB SCH ×3 (06:40→22:15)
[2017-05-12 08:32] LABS: BASOPHIL 0.2 % (0-2.0); EOSINOPHIL 0.5 % (0-4.5); MCH 35.3 pg (25.7-33.7); MCHC 33.9 g/dl (32.0-35.9); MEAN CELL VOLUME 104.3 fl (80-96); MEAN PLT VOLUME 8.6 fl (7.5-11.1); NEUTROPHILS 90.8 % (42.8-82.8); PLATELET COUNT 182 K/MM3 (134-434); RDW 16.7 % (11.9-15.9); WHITE BLOOD COUNT 13.1 K/mm3 (4.0-10.0)
[2017-05-12 08:50] LABS: ANION GAP 9 (8-16); CALCIUM 8.4 mg/dL (8.5-10.1); CO2 36 mmol/L (21-32); GLUCOSE,RANDOM 84 mg/dL (74-106); MAGNESIUM 2.1 mg/dL (1.8-2.4); PHOSPHOROUS 2.8 mg/dL (2.5-4.9); SGOT/AST 21 U/L (15-37)
[2017-05-12 08:52] LABS: ALK PHOS 41 U/L (45-117); CREATININE 0.9 mg/dL (0.7-1.3); SGPT/ALT 13 U/L (12-78)
[2017-05-12] MEDS: FERROUS SULFATE PO SCH ×2 (09:34→21:33)
[2017-05-12] MEDS: LACTOBACILLUS ACIDOPHILUS 1 EACH TAB (FP) PO SCH (09:35)
[2017-05-12] MEDS: SENNOSIDES 8.6MG TABLET (FP) PO SCH (09:35)
[2017-05-12] MEDS: RANITIDINE HCL 150 MG TABLET (FP) PO SCH ×2 (09:36→21:33)
[2017-05-12] MEDS: FUROSEMIDE 40 MG TABLET (FP) PO SCH (09:36)
[2017-05-12] MEDS: GABAPENTIN 300 MG CAPSULE (FP) PO SCH ×2 (09:36→21:34)
[2017-05-12] MEDS: POTASSIUM CHLORIDE TABS 20 MEQ TABLET.ER (FP) PO SCH (09:36)
[2017-05-12] MEDS: CHOLECALCIFEROL (VITAMIN D3) 1,000 UNIT TABLET (FP) PO SCH (09:37)
[2017-05-12] MEDS: TIOTROPIUM BROMIDE 18 MCG/INH (DEVICE W/ 5 CAPSULES) IH SCH (09:37)
[2017-05-12] MEDS: FLUTICASONE PROP 0.05% 16 GM NASAL SPRAY NS SCH (09:37)
[2017-05-12] MEDS: DABIGATRAN ETEXILATE MESYLATE 150 MG CAPSULE PO SCH ×2 (09:38→21:34)
[2017-05-12] MEDS: MAGNESIUM CL 64 MG TABLET.SA PO SCH (09:38)
[2017-05-12] MEDS: BRIMONIDINE TARTRATE 0.15% OPHTHALMIC 5 ML BOTTLE OD SCH ×2 (09:38→21:33)
[2017-05-12] MEDS: FENOFIBRIC ACID 135 MG CAP PO SCH (09:38)
--- NOTE | 2017-05-12 10:17 | PN ---
Progress Note, Physician History of Present Illness: pulmonarey alert,oob-chair,-resp distress - Current Medication List Current Medications: Active Medications Acetaminophen (Tylenol -) 650 mg PO Q6H PRN PRN Reason: FEVER OR PAIN Albuterol/Ipratropium (Duoneb -) 1 amp NEB TIDR [facility] Last Admin: 05/12/17 06:40 Dose: 1 amp Ascorbic Acid (Vitamin C -) 500 mg PO HS [facility] Last Admin: 05/11/17 21:36 Dose: 500 mg Atorvastatin Calcium (Lipitor -) 10 mg PO HS [facility] Last Admin: 05/11/17 21:37 Dose: 10 mg Brimonidine Tartrate (Alphagan 0.15% -) 1 drop OD BID [facility] Last Admin: 05/12/17 09:38 Dose: 1 drop Cholecalciferol (Vitamin D3 -) 1,000 unit PO DAILY [facility] Last Admin: 05/12/17 09:37 Dose: 1,000 unit Dabigatran (Pradaxa -) 150 mg PO BID [facility] Last Admin: 05/12/17 09:38 Dose: 150 mg Docusate Sodium (Colace -) 200 mg PO HS [facility] Last Admin: 05/11/17 21:37 Dose: 200 mg Duloxetine HCl (Cymbalta -) 60 mg PO [facility] Last Admin: 05/11/17 21:37 Dose: 60 mg Fenofibric Acid (Trilipix -) 135 mg PO DAILY [facility] Last Admin: 05/12/17 09:38 Dose: 135 mg Fluticasone Propionate (Flonase -) 2 spray NS DAILY [facility] Last Admin: 05/12/17 09:37 Dose: 2 sprays Furosemide (Lasix -) 40 mg PO DAILY [facility] Last Admin: 05/12/17 09:36 Dose: 40 mg Gabapentin (Neurontin -) 600 mg PO BID [facility] Last Admin: 05/12/17 09:36 Dose: 600 mg Levofloxacin (Levaquin 750 Mg Premixed Ivpb -) 150 mls @ 150 mls/hr IVPB DAILY [facility] Last Admin: 05/11/17 10:28 Dose: 150 mls/hr Ertapenem 1 gm/ Sodium (Chloride) 50 mls @ 50 mls/hr IVPB DAILY [facility] PRN Reason: Protocol Last Admin: 05/11/17 18:49 Dose: 50 mls/hr Vancomycin HCl 1,250 mg/ (Sodium Chloride) 250 mls @ 250 mls/hr IVPB DAILY [facility] PRN Reason: Protocol Lactobacillus Acidophilus (Bacid -) 1 tab PO DAILY [facility] Last Admin: 05/12/17 09:35 Dose: 1 tab Levothyroxine Sodium (Synthroid -) 50 mcg PO DAILY@0700 [facility] Last Admin: 05/12/17 06:11 Dose: 50 mcg Magnesium Chloride (Slow-Mag -) 64 mg PO DAILY [facility] Last Admin: 05/12/17 09:38 Dose: 64 mg Slow Release Ferrous Sulfate (45mg Elemental Feso4) 1 each PO BID [facility] Last Admin: 05/12/17 09:34 Dose: 1 each Potassium Chloride (K-Dur -) 20 meq PO DAILY [facility] Last Admin: 05/12/17 09:36 Dose: 20 meq Ranitidine HCl (Zantac -) 150 mg PO BID [facility] Last Admin: 05/12/17 09:36 Dose: 150 mg Senna (Senna -) 2 tab PO DAILY [facility] Last Admin: 05/12/17 09:35 Dose: 2 tab Tiotropium [place] (Spiriva -) 1 puff IH DAILY [facility] Last Admin: 05/12/17 09:37 Dose: 1 puff - Objective Vital Signs: Vital Signs Temperature 98.7 F 05/12/17 06:00 Pulse Rate 103 H 05/12/17 06:00 Respiratory Rate 20 05/12/17 06:00 Blood Pressure 143/75 05/12/17 06:00 O2 Sat by Pulse Oximetry (%) 99 05/11/17 22:00 Constitutional: Yes: Well Nourished, Calm Eyes: Yes: WNL HENT: Yes: WNL Neck: Yes: WNL Cardiovascular: Yes: Pulse Irregular, S1, S2 Respiratory: Yes: Rales (few bibasilar crackles) Gastrointestinal: Yes: Normal Bowel Sounds, Soft Extremities: Yes: WNL Edema: No Labs: CBC, BMP 05/12/17 06:00 05/12/17 06:00 Assessment/Plan Problem List - Problems (1) Shortness of breath Code(s): R06.02 - SHORTNESS OF BREATH (2) Atrial fibrillation Code(s): I48.91 - UNSPECIFIED ATRIAL FIBRILLATION (3) CHF (congestive heart failure) Code(s): I50.9 - HEART FAILURE, UNSPECIFIED (4) HTN (hypertension) Code(s): I10 - ESSENTIAL (PRIMARY) HYPERTENSION (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
[2017-05-12] MEDS: LEVOFLOXACIN 750 MG IVPB 150 ML IVPB SCH (10:46)
--- NOTE | 2017-05-12 10:54 | PN ---
Progress Note, Physician History of Present Illness: No issues overnight No complaints TEle: Afib with RVR at 8AM, currently at 87/min - Current Medication List Current Medications: Active Medications Acetaminophen (Tylenol -) 650 mg PO Q6H PRN PRN Reason: FEVER OR PAIN Albuterol/Ipratropium (Duoneb -) 1 amp NEB TIDR [facility] Last Admin: 05/12/17 06:40 Dose: 1 amp Ascorbic Acid (Vitamin C -) 500 mg PO HS [facility] Last Admin: 05/11/17 21:36 Dose: 500 mg Atorvastatin Calcium (Lipitor -) 10 mg PO HS [facility] Last Admin: 05/11/17 21:37 Dose: 10 mg Brimonidine Tartrate (Alphagan 0.15% -) 1 drop OD BID [facility] Last Admin: 05/12/17 09:38 Dose: 1 drop Cholecalciferol (Vitamin D3 -) 1,000 unit PO DAILY [facility] Last Admin: 05/12/17 09:37 Dose: 1,000 unit Dabigatran (Pradaxa -) 150 mg PO BID [facility] Last Admin: 05/12/17 09:38 Dose: 150 mg Docusate Sodium (Colace -) 200 mg PO HS [facility] Last Admin: 05/11/17 21:37 Dose: 200 mg Duloxetine HCl (Cymbalta -) 60 mg PO HS [facility] Last Admin: 05/11/17 21:37 Dose: 60 mg Fenofibric Acid (Trilipix -) 135 mg PO DAILY [facility] Last Admin: 05/12/17 09:38 Dose: 135 mg Fluticasone Propionate (Flonase -) 2 spray NS DAILY [facility] Last Admin: 05/12/17 09:37 Dose: 2 sprays Furosemide (Lasix -) 40 mg PO DAILY [facility] Last Admin: 05/12/17 09:36 Dose: 40 mg Gabapentin (Neurontin -) 600 mg PO BID [facility] Last Admin: 05/12/17 09:36 Dose: 600 mg Ertapenem 1 gm/ Sodium (Chloride) 50 mls @ 50 mls/hr IVPB DAILY [facility] PRN Reason: Protocol Last Admin: 05/11/17 18:49 Dose: 50 mls/hr Vancomycin HCl 1,250 mg/ (Sodium Chloride) 250 mls @ 250 mls/hr IVPB DAILY [facility] PRN Reason: Protocol Lactobacillus Acidophilus (Bacid -) 1 tab PO DAILY [facility] Last Admin: 05/12/17 09:35 Dose: 1 tab Levothyroxine Sodium (Synthroid -) 50 mcg PO DAILY@0700 [facility] Last Admin: 05/12/17 06:11 Dose: 50 mcg Magnesium Chloride (Slow-Mag -) 64 mg PO DAILY [facility] Last Admin: 05/12/17 09:38 Dose: 64 mg Slow Release Ferrous Sulfate (45mg Elemental Feso4) 1 each PO BID [facility] Last Admin: 05/12/17 09:34 Dose: 1 each Potassium Chloride (K-Dur -) 20 meq PO DAILY [facility] Last Admin: 05/12/17 09:36 Dose: 20 meq Ranitidine HCl (Zantac -) 150 mg PO BID [facility] Last Admin: 05/12/17 09:36 Dose: 150 mg Senna (Senna -) 2 tab PO DAILY [facility] Last Admin: 05/12/17 09:35 Dose: 2 tab Tiotropium [place] (Spiriva -) 1 puff IH DAILY [facility] Last Admin: 05/12/17 09:37 Dose: 1 puff - Objective Vital Signs: Vital Signs Temperature 98.7 F 05/12/17 06:00 Pulse Rate 103 H 05/12/17 06:00 Respiratory Rate 20 05/12/17 06:00 Blood Pressure 143/75 05/12/17 06:00 O2 Sat by Pulse Oximetry (%) 99 05/11/17 22:00 Constitutional: Yes: No Distress Eyes: Yes: WNL HENT: Yes: WNL Neck: Yes: WNL Cardiovascular: Yes: Pulse Irregular Respiratory: Yes: CTA Bilaterally Gastrointestinal: Yes: WNL Musculoskeletal: Yes: WNL Extremities: Yes: WNL Edema: No Labs: CBC, BMP 05/12/17 06:00 05/12/17 06:00 Assessment/Plan This is an 86 Y/O Gentleman with with CKD, CAD s/p pci to rca 2004 (patent on cath 2006), PVD s/p le bypass/stents/amputations, HTN, Afib on AC, here with sob , weakness. fatigue, sob: -bnp up but no clinical chf and outpt lasix has not improved his sxs so does not seem that chf causing his sxs -pulm following afib: -RVR overnight off meds -cont pradaxa -Will start low dose metoprolol (monitor for wheezing), BP can tolerate it cad s/p remote pci: -stable -no signs acs -cont AC, statin. no bb/acei due to low bp as outpt, but BP elevated now and starting BB for AF chronic diastolic chf: -plan as above, on po lasix currently, Weight today 157 htn: -stable off meds hld: -cont home statin
[2017-05-12] MEDS: ERTAPENEM SODIUM 1 GM in SODIUM CHLORIDE 50 ML IVPB SCH (11:12)
[2017-05-12] MEDS: VANCOMYCIN 1,250 MG in SODIUM CHLORIDE 250 ML IVPB SCH (11:12)
--- NOTE | 2017-05-12 16:12 | PN ---
Progress Note, Physician History of Present Illness: stable improving wbc has decreased - Current Medication List Current Medications: Active Medications Acetaminophen (Tylenol -) 650 mg PO Q6H PRN PRN Reason: FEVER OR PAIN Albuterol/Ipratropium (Duoneb -) 1 amp NEB TIDR [facility] Last Admin: 05/12/17 14:47 Dose: 1 amp Ascorbic Acid (Vitamin C -) 500 mg PO HS [facility] Last Admin: 05/11/17 21:36 Dose: 500 mg Atorvastatin Calcium (Lipitor -) 10 mg PO HS [facility] Last Admin: 05/11/17 21:37 Dose: 10 mg Brimonidine Tartrate (Alphagan 0.15% -) 1 drop OD BID [facility] Last Admin: 05/12/17 09:38 Dose: 1 drop Cholecalciferol (Vitamin D3 -) 1,000 unit PO DAILY [facility] Last Admin: 05/12/17 09:37 Dose: 1,000 unit Dabigatran (Pradaxa -) 150 mg PO BID [facility] Last Admin: 05/12/17 09:38 Dose: 150 mg Docusate Sodium (Colace -) 200 mg PO HS [facility] Last Admin: 05/11/17 21:37 Dose: 200 mg Duloxetine HCl (Cymbalta -) 60 mg PO [facility] Last Admin: 05/11/17 21:37 Dose: 60 mg Fenofibric Acid (Trilipix -) 135 mg PO DAILY [facility] Last Admin: 05/12/17 09:38 Dose: 135 mg Fluticasone Propionate (Flonase -) 2 spray NS DAILY [facility] Last Admin: 05/12/17 09:37 Dose: 2 sprays Furosemide (Lasix -) 40 mg PO DAILY [facility] Last Admin: 05/12/17 09:36 Dose: 40 mg Gabapentin (Neurontin -) 600 mg PO BID [facility] Last Admin: 05/12/17 09:36 Dose: 600 mg Ertapenem 1 gm/ Sodium (Chloride) 50 mls @ 50 mls/hr IVPB DAILY [facility] PRN Reason: Protocol Last Admin: 05/12/17 11:12 Dose: 50 mls/hr Vancomycin HCl 1,250 mg/ (Sodium Chloride) 250 mls @ 250 mls/hr IVPB DAILY [facility] PRN Reason: Protocol Last Admin: 05/12/17 11:12 Dose: 250 mls/hr Lactobacillus Acidophilus (Bacid -) 1 tab PO DAILY [facility] Last Admin: 05/12/17 09:35 Dose: 1 tab Levothyroxine Sodium (Synthroid -) 50 mcg PO DAILY@0700 [facility] Last Admin: 05/12/17 06:11 Dose: 50 mcg Magnesium Chloride (Slow-Mag -) 64 mg PO DAILY [facility] Last Admin: 05/12/17 09:38 Dose: 64 mg Metoprolol Tartrate (Lopressor -) 25 mg PO BID [facility] Slow Release Ferrous Sulfate (45mg Elemental Feso4) 1 each PO BID [facility] Last Admin: 05/12/17 09:34 Dose: 1 each Potassium Chloride (K-Dur -) 20 meq PO DAILY [facility] Last Admin: 05/12/17 09:36 Dose: 20 meq Ranitidine HCl (Zantac -) 150 mg PO BID [facility] Last Admin: 05/12/17 09:36 Dose: 150 mg Senna (Senna -) 2 tab PO DAILY [facility] Last Admin: 05/12/17 09:35 Dose: 2 tab Tiotropium [place] (Spiriva -) 1 puff IH DAILY [facility] Last Admin: 05/12/17 09:37 Dose: 1 puff - Objective Vital Signs: Vital Signs Temperature 98.9 F 05/12/17 14:02 Pulse Rate 81 05/12/17 14:02 Respiratory Rate 20 05/12/17 14:02 Blood Pressure 127/56 05/12/17 14:02 O2 Sat by Pulse Oximetry (%) 99 05/12/17 09:00 Constitutional: Yes: No Distress, Calm Cardiovascular: Yes: Regular Rate and Rhythm Respiratory: Yes: Regular, Poor Air Entry, Other (crackles) Gastrointestinal: Yes: Normal Bowel Sounds, Soft Musculoskeletal: Yes: WNL Extremities: Yes: WNL Neurological: Yes: Alert, Oriented Psychiatric: Yes: Alert, Oriented Labs: CBC, BMP 05/12/17 06:00 05/12/17 06:00 Assessment/Plan Problem List - Problems (1) Pneumonia Code(s): J18.9 - PNEUMONIA, UNSPECIFIED ORGANISM Qualifiers: Laterality: right Lung location: lower lobe of lung (2) Alkalosis, metabolic Code(s): E87.3 - ALKALOSIS (3) Atrial fibrillation Code(s): I48.91 - UNSPECIFIED ATRIAL FIBRILLATION Qualifiers: Atrial fibrillation type: chronic Qualified Code(s): I48.2 - Chronic atrial fibrillation (4) CHF (congestive heart failure) Code(s): I50.9 - HEART FAILURE, UNSPECIFIED Qualifiers: Congestive heart failure type: unspecified congestive heart failure type Congestive heart failure chronicity: chronic Qualified Code(s): I50.9 - Heart failure, unspecified (5) GERD (gastroesophageal reflux disease) Code(s): K21.9 - GASTRO-ESOPHAGEAL REFLUX DISEASE WITHOUT ESOPHAGITIS (6) HTN (hypertension) Code(s): I10 - ESSENTIAL (PRIMARY) HYPERTENSION (7) Hyperlipemia Code(s): E78.5 - HYPERLIPIDEMIA, UNSPECIFIED (8) Hypothyroidism Code(s): E03.9 - HYPOTHYROIDISM, UNSPECIFIED (9) PVD (peripheral vascular disease) Code(s): I73.9 - PERIPHERAL VASCULAR DISEASE, UNSPECIFIED Assessment/Plan (1) Community acquired pneumonia (2) Alkalosis, metabolic Code(s): E87.3 - ALKALOSIS (3) Atrial fibrillation Code(s): I48.91 - UNSPECIFIED ATRIAL FIBRILLATION Qualifiers: Atrial fibrillation type: chronic Qualified Code(s): I48.2 - Chronic atrial fibrillation (4) CHF (congestive heart failure) Code(s): I50.9 - HEART FAILURE, UNSPECIFIED Qualifiers: Congestive heart failure type: unspecified congestive heart failure type Congestive heart failure chronicity: chronic Qualified Code(s): I50.9 - Heart failure, unspecified (5) GERD (gastroesophageal reflux disease) Code(s): K21.9 - GASTRO-ESOPHAGEAL REFLUX DISEASE WITHOUT ESOPHAGITIS (6) HTN (hypertension) Code(s): I10 - ESSENTIAL (PRIMARY) HYPERTENSION (7) Hyperlipemia Code(s): E78.5 - HYPERLIPIDEMIA, UNSPECIFIED (8) Hypothyroidism Code(s): E03.9 - HYPOTHYROIDISM, UNSPECIFIED (9) PVD (peripheral vascular disease) Code(s): I73.9 - PERIPHERAL VASCULAR DISEASE, UNSPECIFIED plan continue abx incentive kimberly continue vanco improving wbc decreased
--- NOTE | 2017-05-12 17:28 | PN ---
Physical Exam: SUBJECTIVE: Patient seen and examined oob to chair. OBJECTIVE: Vital Signs Period Temp Pulse Resp BP Sys/Mitchell Pulse Ox Last 24 Hr 97.8 F-99.1 F 81-103 18-20 110-150/56-75 99-99 GENERAL: The patient is awake, alert, and fully oriented, in no acute distress. HEAD: Normal with no signs of trauma. LUNGS: Diminished sounds on the right HEART: Regular rate and rhythm, S1, S2 + murmur ABDOMEN: Soft, nontender, nondistended, normoactive bowel sounds EXTREMITIES: 2+ pulses, warm, well-perfused, no edema. NEUROLOGICAL: Cranial nerves II through XII grossly intact. Normal speech, gait not observed. Laboratory Results - last 24 hr 05/12/17 05/12/17 06:00 06:00 WBC 13.1 H D RBC 2.95 L Hgb 10.4 L Hct 30.8 L MCV 104.3 H MCH 35.3 H MCHC 33.9 RDW 16.7 H Plt Count 182 MPV 8.6 Neutrophils % 90.8 H Lymphocytes % 2.1 L D Monocytes % 6.4 Eosinophils % 0.5 Basophils % 0.2 Sodium 135 L Potassium 4.0 Chloride 90 L Carbon Dioxide 36 H Anion Gap 9 BUN 21 H Creatinine 0.9 Creat Clearance w eGFR > 60 Random Glucose 84 Calcium 8.4 L Phosphorus 2.8 Magnesium 2.1 Total Bilirubin 1.0 D AST 21 D ALT 13 Alkaline Phosphatase 41 L D Total Protein 6.0 L Albumin 3.0 L Active Medications Generic Name Dose Route Start Last Admin Trade Name Freq PRN Reason Stop Dose Admin Acetaminophen 650 mg 05/08/17 18:51 Tylenol - PO Q6H PRN FEVER OR PAIN Albuterol/Ipratropium 1 amp 05/11/17 22:00 05/12/17 14:47 Duoneb - NEB 1 amp TIDR MICHAEL Administration Ascorbic Acid 500 mg 05/08/17 22:00 05/11/17 21:36 Vitamin C - PO 500 mg HS MICHAEL Administration Atorvastatin Calcium 10 mg 05/08/17 22:00 05/11/17 21:37 Lipitor - PO 10 mg HS MICHAEL Administration Brimonidine Tartrate 1 drop 05/08/17 22:00 05/12/17 09:38 Alphagan 0.15% - OD 1 drop BID MICHAEL Administration Cholecalciferol 1,000 unit 05/09/17 10:00 05/12/17 09:37 Vitamin D3 - PO 1,000 unit DAILY MICHAEL Administration Dabigatran 150 mg 05/08/17 22:00 05/12/17 09:38 Pradaxa - PO 150 mg BID MIC[facility]EL Administration Docusate Sodium 200 mg 05/08/17 22:00 05/11/17 21:37 Colace - PO 200 mg HS MICHAEL Administration Duloxetine HCl 60 mg 05/08/17 22:00 05/11/17 21:37 Cymbalta - PO 60 mg HS [facility]EL Administration Fenofibric Acid 135 mg 05/09/17 10:00 05/12/17 09:38 Trilipix - PO 135 mg DAILY [facility] Administration Fluticasone Propionate 2 spray 05/09/17 10:00 05/12/17 09:37 Flonase - NS 2 sprays DAILY [facility] Administration Furosemide 40 mg 05/09/17 12:00 05/12/17 09:36 Lasix - PO 40 mg DAILY [facility] Administration Gabapentin 600 mg 05/08/17 22:00 05/12/17 09:36 Neurontin - PO 600 mg BID [facility]EL Administration Ertapenem 1 gm/ Sodium 50 mls @ 50 mls/hr 05/11/17 15:15 05/12/17 11:12 Chloride IVPB 50 mls/hr DAILY [facility] Administration Protocol Vancomycin HCl 1,250 mg/ 250 mls @ 250 mls/hr 05/12/17 10:00 05/12/17 11:12 Sodium Chloride IVPB 250 mls/hr DAILY [facility]EL Administration Protocol Lactobacillus Acidophilus 1 tab 05/10/17 11:00 05/12/17 09:35 Bacid - PO 1 tab DAILY [facility] Administration Levothyroxine Sodium 50 mcg 05/09/17 07:00 05/12/17 06:11 Synthroid - PO 50 mcg DAILY@0700 MIC[facility]EL Administration Magnesium Chloride 64 mg 05/09/17 10:00 05/12/17 09:38 Slow-Mag - PO 64 mg DAILY [facility] Administration Metoprolol Tartrate 25 mg 05/12/17 22:00 Lopressor - PO BID MICHAEL Slow Release Ferrous 1 each 05/10/17 22:00 05/12/17 09:34 Sulfate (45mg PO 1 each Elemental Feso4) BID MIC[facility]EL Administration Potassium Chloride 20 meq 05/09/17 10:00 05/12/17 09:36 K-Dur - PO 20 meq DAILY [facility]EL Administration Ranitidine HCl 150 mg 05/08/17 22:00 05/12/17 09:36 Zantac - PO 150 mg BID [facility]EL Administration Senna 2 tab 05/09/17 10:00 05/12/17 09:35 Senna - PO 2 tab DAILY [facility]EL Administration Tiotropium [place] 1 puff 05/09/17 13:00 05/12/17 09:37 Spiriva - IH 1 puff DAILY MICHAEL Administration ASSESSMENT/PLAN: 86 year-old male with a PMH significant for CAD s/p stent, PVD s/p bypass/stents /amputtions, afib on Pradaxa, and CKD. Admitted for pneumonia. Community acquired pneumonia --05/09 CT: LLL patchy consolidation; minimal bilateral pleural effusions --WBC trending down 23.0k-->13.1k --blood cultures NGTD --continue ertapenem and vanc per ID --duonebs, Spiriva Atrial fibrillation with RVR --rate elevated overnight --started on metoprolol by cardiology; monitor for wheezing --continue Pradaxa Chronic systolic heart failure --05/09 Echo: LV mildly reduced, mild global hypokinesis; RV normal; mild MR; trace MR --continue PO lasix, K-dur Coronary artery disease --negative troponins x 3 --recent MIBI and echo unremarkable --continue fenofibric acid, Lipitor, Pradaxa; metoprolol started GERD --continue Zantac Hypertension --BP well-controlled Hyperlipemia --continue fenofibrate and Lipitor Hypothyroidism --TSH wnl --continue levothyroxine Peripheral vascular disease --no acute issues --continue Pradaxa DVT prophylaxis: on Pradaxa Visit type - Emergency Visit Emergency Visit: Yes ED Registration Date: 05/08/17 Care time: The patient presented to the Emergency Department on the above date and was hospitalized for further evaluation of their emergent condition. - New Patient This patient is new to me today: No - Critical Care Critical Care patient: No
[2017-05-12] MEDS ORDERED: PT OWN MED DRAWER 7, Y5N ONE ×2 (20:08→21:36)
[2017-05-12] MEDS: DOCUSATE SODIUM 100 MG CAPSULE (FP) PO SCH (21:33)
[2017-05-12] MEDS: ATORVASTATIN CA 10 MG TABLET (FP) PO SCH (21:33)
[2017-05-12] MEDS: ASCORBIC ACID 500 MG TABLET (FP) PO SCH (21:33)
[2017-05-12] MEDS: METOPROLOL TARTRATE 25 MG TABLET (FP) PO SCH (21:33)
[2017-05-12] MEDS: DULoxetine HCL 30 MG CAPSULE.DR (FP) PO SCH (21:34)
[2017-05-12] MEDS ORDERED: MAG HYDROX/AL HYDROX/SIMETH 30 ML UNIT-DOSE CUP PO ONE (21:38)
[2017-05-13] MEDS: LEVOTHYROXINE NA 50 MCG TABLET (FP) PO SCH (06:04)
[2017-05-13] MEDS: ALBUTEROL SO4 2.5/IPRATROPIUM 0.5 INH SOL 3 ML VIAL.NEB. NEB SCH ×3 (06:20→22:03)
[2017-05-13 07:17] LABS: BASOPHIL 0.4 % (0-2.0); MCH 35.6 pg (25.7-33.7); MCHC 33.8 g/dl (32.0-35.9); MEAN CELL VOLUME 105.3 fl (80-96); NEUTROPHILS 90.9 % (42.8-82.8); PLATELET COUNT 174 K/MM3 (134-434); RDW 17.3 % (11.9-15.9); WHITE BLOOD COUNT 14.6 K/mm3 (4.0-10.0)
[2017-05-13 08:03] LABS: ALBUMIN 2.8 g/dl (3.4-5.0); ALK PHOS 43 U/L (45-117); ANION GAP 8 (8-16); BILIRUBIN,TOTAL 0.6 mg/dL (0.2-1.0); CALCIUM 8.9 mg/dL (8.5-10.1); CO2 37 mmol/L (21-32); CREATININE 0.9 mg/dL (0.7-1.3); GLUCOSE,RANDOM 93 mg/dL (74-106); MAGNESIUM 2.3 mg/dL (1.8-2.4); SGOT/AST 27 U/L (15-37); SGPT/ALT 13 U/L (12-78); TOT PROT 5.8 g/dl (6.4-8.2)
--- NOTE | 2017-05-13 08:12 | PN ---
Progress Note, Physician - Current Medication List Current Medications: Active Medications Acetaminophen (Tylenol -) 650 mg PO Q6H PRN PRN Reason: FEVER OR PAIN Albuterol/Ipratropium (Duoneb -) 1 amp NEB TIDR [facility] Last Admin: 05/13/17 06:20 Dose: 1 amp Ascorbic Acid (Vitamin C -) 500 mg PO HS [facility] Last Admin: 05/12/17 21:33 Dose: 500 mg Atorvastatin Calcium (Lipitor -) 10 mg PO HS [facility] Last Admin: 05/12/17 21:33 Dose: 10 mg Brimonidine Tartrate (Alphagan 0.15% -) 1 drop OD BID [facility] Last Admin: 05/12/17 21:33 Dose: 1 drop Cholecalciferol (Vitamin D3 -) 1,000 unit PO DAILY [facility] Last Admin: 05/12/17 09:37 Dose: 1,000 unit Dabigatran (Pradaxa -) 150 mg PO BID [facility] Last Admin: 05/12/17 21:34 Dose: 150 mg Docusate Sodium (Colace -) 200 mg PO [facility] Last Admin: 05/12/17 21:33 Dose: 200 mg Duloxetine HCl (Cymbalta -) 60 mg PO [facility] Last Admin: 05/12/17 21:34 Dose: 60 mg Fenofibric Acid (Trilipix -) 135 mg PO DAILY [facility] Last Admin: 05/12/17 09:38 Dose: 135 mg Fluticasone Propionate (Flonase -) 2 spray NS DAILY [facility] Last Admin: 05/12/17 09:37 Dose: 2 sprays Furosemide (Lasix -) 40 mg PO DAILY [facility] Last Admin: 05/12/17 09:36 Dose: 40 mg Gabapentin (Neurontin -) 600 mg PO BID [facility] Last Admin: 05/12/17 21:34 Dose: 600 mg Ertapenem 1 gm/ Sodium (Chloride) 50 mls @ 50 mls/hr IVPB DAILY [facility] PRN Reason: Protocol Last Admin: 05/12/17 11:12 Dose: 50 mls/hr Vancomycin HCl 1,250 mg/ (Sodium Chloride) 250 mls @ 250 mls/hr IVPB DAILY [facility] PRN Reason: Protocol Last Admin: 05/12/17 11:12 Dose: 250 mls/hr Lactobacillus Acidophilus (Bacid -) 1 tab PO DAILY [facility] Last Admin: 05/12/17 09:35 Dose: 1 tab Levothyroxine Sodium (Synthroid -) 50 mcg PO DAILY@0700 [facility] Last Admin: 05/13/17 06:04 Dose: 50 mcg Magnesium Chloride (Slow-Mag -) 64 mg PO DAILY [facility] Last Admin: 05/12/17 09:38 Dose: 64 mg Metoprolol Tartrate (Lopressor -) 25 mg PO BID [facility] Last Admin: 05/12/17 21:33 Dose: 25 mg Slow Release Ferrous Sulfate (45mg Elemental Feso4) 1 each PO BID [facility] Last Admin: 05/12/17 21:33 Dose: 1 each Potassium Chloride (K-Dur -) 20 meq PO DAILY [facility] Last Admin: 05/12/17 09:36 Dose: 20 meq Ranitidine HCl (Zantac -) 150 mg PO BID [facility] Last Admin: 05/12/17 21:33 Dose: 150 mg Senna (Senna -) 2 tab PO DAILY [facility] Last Admin: 05/12/17 09:35 Dose: 2 tab Tiotropium [place] (Spiriva -) 1 puff IH DAILY [facility] Last Admin: 05/12/17 09:37 Dose: 1 puff - Objective Vital Signs: Vital Signs Temperature 97.8 F 05/13/17 06:00 Pulse Rate 72 05/13/17 06:00 Respiratory Rate 20 05/13/17 06:00 Blood Pressure 123/57 05/13/17 06:00 O2 Sat by Pulse Oximetry (%) 100 05/12/17 21:11 Labs: CBC, BMP 05/13/17 06:20 05/13/17 06:20 Assessment/Plan ecg 05/09/17: afib, rate controlled, nl qtc, no ischemic changes, rbbb cxr: clear lungs echo 10/2016: low nl lvef, nl lv size, nl rv, mild elena, mild mr/tr, rvsp 40-50 echo 05/2017: mild dec lvef, global hk, nl lv size, nl rv, mild mr, mild ao root dil mibi 10/2016: no ischemia This is an 86 Y/O Gentleman with with CKD, CAD s/p pci to rca 2004 (patent on cath 2006), PVD s/p le bypass/stents/amputations, HTN, Afib on AC, here with sob , weakness. fatigue, sob: -bnp very high, but outpt lasix with dr hinds has not improved his sxs so does not seem that chf causing his sxs -? PNA: patchy LLL infiltrate on CXR, hi CRP. currently being tx'd with abx by pulm and ID afib: -RVR overnight off meds -cont pradaxa (tolerating this for several years) -Will start low dose metoprolol (monitor for wheezing, monitor BP) cad s/p remote pci: -stable -no signs acs -cont AC, statin. has been off bb/acei due to low bp as outpt, but BP elevated now and starting BB for AF chronic diastolic chf: -bnp 23K (baseline 8-10K) -05/13: has been on lasix 40 po daily, wts ranging 151-157 here, suspect JVD on exam though he is asymptomatic. cxr 05/12 with mild incr interstl markings ? mild chf -lasix 40mg IVP x 1 today, assess wts and labs tomorrow and dose lasix accordingly htn: -stable off meds hld: -cont home statin anemia: -chronic, counts stable here
[2017-05-13] MEDS ORDERED: PT OWN MED DRAWER 7, Y5N ONE ×6 (10:00→21:54)
[2017-05-13] MEDS: FUROSEMIDE 40 MG TABLET (FP) PO SCH (10:10)
[2017-05-13] MEDS: FLUTICASONE PROP 0.05% 16 GM NASAL SPRAY NS SCH (10:10)
[2017-05-13] MEDS: CHOLECALCIFEROL (VITAMIN D3) 1,000 UNIT TABLET (FP) PO SCH (10:10)
[2017-05-13] MEDS: RANITIDINE HCL 150 MG TABLET (FP) PO SCH ×2 (10:10→21:39)
[2017-05-13] MEDS: POTASSIUM CHLORIDE TABS 20 MEQ TABLET.ER (FP) PO SCH (10:10)
[2017-05-13] MEDS: GABAPENTIN 300 MG CAPSULE (FP) PO SCH ×2 (10:10→21:39)
[2017-05-13] MEDS: LACTOBACILLUS ACIDOPHILUS 1 EACH TAB (FP) PO SCH (10:10)
[2017-05-13] MEDS: SENNOSIDES 8.6MG TABLET (FP) PO SCH (10:10)
[2017-05-13] MEDS: METOPROLOL TARTRATE 25 MG TABLET (FP) PO SCH ×2 (10:10→21:40)
[2017-05-13] MEDS: DABIGATRAN ETEXILATE MESYLATE 150 MG CAPSULE PO SCH ×2 (10:11→21:40)
[2017-05-13] MEDS: MAGNESIUM CL 64 MG TABLET.SA PO SCH (10:11)
[2017-05-13] MEDS: TIOTROPIUM BROMIDE 18 MCG/INH (DEVICE W/ 5 CAPSULES) IH SCH (10:12)
[2017-05-13] MEDS: BRIMONIDINE TARTRATE 0.15% OPHTHALMIC 5 ML BOTTLE OD SCH ×2 (10:12→21:40)
[2017-05-13] MEDS: FERROUS SULFATE PO SCH ×2 (10:12→21:40)
[2017-05-13] MEDS: FENOFIBRIC ACID 135 MG CAP PO SCH (10:13)
[2017-05-13] MEDS: VANCOMYCIN 1,250 MG in SODIUM CHLORIDE 250 ML IVPB SCH (11:01)
--- NOTE | 2017-05-13 11:08 | PN ---
Progress Note, Physician Chief Complaint: Mr Rivas says he is feeling good today. Says he is not short of breath and currently his coughing has resolved. No cp, sob, n/v. Says has been walking only minimally this hospital stay. - Current Medication List Current Medications: Active Medications Acetaminophen (Tylenol -) 650 mg PO Q6H PRN PRN Reason: FEVER OR PAIN Albuterol/Ipratropium (Duoneb -) 1 amp NEB TIDR [facility] Last Admin: 05/13/17 06:20 Dose: 1 amp Ascorbic Acid (Vitamin C -) 500 mg PO HS [facility] Last Admin: 05/12/17 21:33 Dose: 500 mg Atorvastatin Calcium (Lipitor -) 10 mg PO HS [facility] Last Admin: 05/12/17 21:33 Dose: 10 mg Brimonidine Tartrate (Alphagan 0.15% -) 1 drop OD BID [facility] Last Admin: 05/13/17 10:12 Dose: 1 drop Cholecalciferol (Vitamin D3 -) 1,000 unit PO DAILY [facility] Last Admin: 05/13/17 10:10 Dose: 1,000 unit Dabigatran (Pradaxa -) 150 mg PO BID [facility] Last Admin: 05/13/17 10:11 Dose: 150 mg Docusate Sodium (Colace -) 200 mg PO HS [facility] Last Admin: 05/12/17 21:33 Dose: 200 mg Duloxetine HCl (Cymbalta -) 60 mg PO HS [facility] Last Admin: 05/12/17 21:34 Dose: 60 mg Fenofibric Acid (Trilipix -) 135 mg PO DAILY [facility] Last Admin: 05/13/17 10:13 Dose: 135 mg Fluticasone Propionate (Flonase -) 2 spray NS DAILY [facility] Last Admin: 05/13/17 10:10 Dose: 2 sprays Furosemide (Lasix -) 40 mg PO DAILY [facility] Last Admin: 05/13/17 10:10 Dose: 40 mg Gabapentin (Neurontin -) 600 mg PO BID [facility] Last Admin: 05/13/17 10:10 Dose: 600 mg Ertapenem 1 gm/ Sodium (Chloride) 50 mls @ 50 mls/hr IVPB DAILY [facility] PRN Reason: Protocol Last Admin: 05/12/17 11:12 Dose: 50 mls/hr Vancomycin HCl 1,250 mg/ (Sodium Chloride) 250 mls @ 250 mls/hr IVPB DAILY [facility] PRN Reason: Protocol Last Admin: 05/12/17 11:12 Dose: 250 mls/hr Lactobacillus Acidophilus (Bacid -) 1 tab PO DAILY [facility] Last Admin: 05/13/17 10:10 Dose: 1 tab Levothyroxine Sodium (Synthroid -) 50 mcg PO DAILY@0700 [facility] Last Admin: 05/13/17 06:04 Dose: 50 mcg Magnesium Chloride (Slow-Mag -) 64 mg PO DAILY [facility] Last Admin: 05/13/17 10:11 Dose: 64 mg Metoprolol Tartrate (Lopressor -) 25 mg PO BID [facility] Last Admin: 05/13/17 10:10 Dose: 25 mg Slow Release Ferrous Sulfate (45mg Elemental Feso4) 1 each PO BID [facility] Last Admin: 05/13/17 10:12 Dose: 1 each Potassium Chloride (K-Dur -) 20 meq PO DAILY [facility] Last Admin: 05/13/17 10:10 Dose: 20 meq Ranitidine HCl (Zantac -) 150 mg PO BID [facility] Last Admin: 05/13/17 10:10 Dose: 150 mg Senna (Senna -) 2 tab PO DAILY [facility] Last Admin: 05/13/17 10:10 Dose: 2 tab Tiotropium [place] (Spiriva -) 1 puff IH DAILY [facility] Last Admin: 05/13/17 10:12 Dose: 1 puff - Objective Vital Signs: Vital Signs Temperature 36.6 C 05/13/17 06:00 Pulse Rate 72 05/13/17 06:00 Respiratory Rate 20 05/13/17 06:00 Blood Pressure 123/57 05/13/17 06:00 O2 Sat by Pulse Oximetry (%) 100 05/12/17 21:11 Constitutional: Yes: Well Nourished, No Distress, Calm Cardiovascular: Yes: Regular Rate and Rhythm. No: Gallop, Murmur, Rub Respiratory: Yes: Regular, CTA Bilaterally. No: Rales, Rhonchi, Wheezes Gastrointestinal: Yes: Normal Bowel Sounds, Soft. No: Distention, Tenderness Extremities: Yes: WNL Edema: No Labs: CBC, BMP 05/13/17 06:20 05/13/17 06:20 Problem List - Problems (1) Pneumonia Code(s): J18.9 - PNEUMONIA, UNSPECIFIED ORGANISM Qualifiers: Laterality: right Lung location: lower lobe of lung (2) Alkalosis, metabolic Code(s): E87.3 - ALKALOSIS (3) Atrial fibrillation Code(s): I48.91 - UNSPECIFIED ATRIAL FIBRILLATION Qualifiers: Atrial fibrillation type: chronic Qualified Code(s): I48.2 - Chronic atrial fibrillation (4) CHF (congestive heart failure) Code(s): I50.9 - HEART FAILURE, UNSPECIFIED Qualifiers: Congestive heart failure type: unspecified congestive heart failure type Congestive heart failure chronicity: chronic Qualified Code(s): I50.9 - Heart failure, unspecified (5) GERD (gastroesophageal reflux disease) Code(s): K21.9 - GASTRO-ESOPHAGEAL REFLUX DISEASE WITHOUT ESOPHAGITIS (6) HTN (hypertension) Code(s): I10 - ESSENTIAL (PRIMARY) HYPERTENSION (7) Hyperlipemia Code(s): E78.5 - HYPERLIPIDEMIA, UNSPECIFIED (8) Hypothyroidism Code(s): E03.9 - HYPOTHYROIDISM, UNSPECIFIED (9) PVD (peripheral vascular disease) Code(s): I73.9 - PERIPHERAL VASCULAR DISEASE, UNSPECIFIED Assessment/Plan (1) Community acquired pneumonia Assessment/Plan: -patient had leukocytosis over the weekend, 23K was the apex -ID consulted and appreciate assistance -changed from levaquin to ertapenem and vancomycin -patient feels improved -cultures currently negative -will d/w ID about duration of broad spectrum antibiotics (2) Alkalosis, metabolic Assessment/Plan: -compensated chronic respiratory alkalosis -suspect underlying COPD considering smoking history -will need outpatient PFTs and pulmonary follow up Code(s): E87.3 - ALKALOSIS (3) Atrial fibrillation Assessment/Plan: -controlled -continue pradaxa Code(s): I48.91 - UNSPECIFIED ATRIAL FIBRILLATION Qualifiers: Atrial fibrillation type: chronic Qualified Code(s): I48.2 - Chronic atrial fibrillation (4) CHF (congestive heart failure) Assessment/Plan: -ECHO reviewed and cardiology following -not in exacerbation -continue oral lasix Code(s): I50.9 - HEART FAILURE, UNSPECIFIED Qualifiers: Congestive heart failure type: unspecified congestive heart failure type Congestive heart failure chronicity: chronic Qualified Code(s): I50.9 - Heart failure, unspecified (5) GERD (gastroesophageal reflux disease) Assessment/Plan: -continue zantac Code(s): K21.9 - GASTRO-ESOPHAGEAL REFLUX DISEASE WITHOUT ESOPHAGITIS (6) HTN (hypertension) Assessment/Plan: -controlled -continue lasix Code(s): I10 - ESSENTIAL (PRIMARY) HYPERTENSION (7) Hyperlipemia Assessment/Plan: -continue fenofibrate and lipitor Code(s): E78.5 - HYPERLIPIDEMIA, UNSPECIFIED (8) Hypothyroidism Assessment/Plan: -continue synthroid Code(s): E03.9 - HYPOTHYROIDISM, UNSPECIFIED (9) PVD (peripheral vascular disease) Assessment/Plan: -on pradaxa -does not complain of claudication Code(s): I73.9 - PERIPHERAL VASCULAR DISEASE, UNSPECIFIED Dispo -d/w patient, suspect will need SNF for STR on discharge
[2017-05-13] MEDS ORDERED: FUROSEMIDE 40 MG/4 ML INJECTABLE VIAL IVPUSH ONE (11:41)
--- NOTE | 2017-05-13 11:50 | PN ---
Progress Note, Physician History of Present Illness: pulmonary alert,nad,+cough - Current Medication List Current Medications: Active Medications Acetaminophen (Tylenol -) 650 mg PO Q6H PRN PRN Reason: FEVER OR PAIN Albuterol/Ipratropium (Duoneb -) 1 amp NEB TIDR [facility] Last Admin: 05/13/17 06:20 Dose: 1 amp Ascorbic Acid (Vitamin C -) 500 mg PO HS [facility] Last Admin: 05/12/17 21:33 Dose: 500 mg Atorvastatin Calcium (Lipitor -) 10 mg PO HS [facility] Last Admin: 05/12/17 21:33 Dose: 10 mg Brimonidine Tartrate (Alphagan 0.15% -) 1 drop OD BID [facility] Last Admin: 05/13/17 10:12 Dose: 1 drop Cholecalciferol (Vitamin D3 -) 1,000 unit PO DAILY [facility] Last Admin: 05/13/17 10:10 Dose: 1,000 unit Dabigatran (Pradaxa -) 150 mg PO BID [facility] Last Admin: 05/13/17 10:11 Dose: 150 mg Docusate Sodium (Colace -) 200 mg PO HS [facility] Last Admin: 05/12/17 21:33 Dose: 200 mg Duloxetine HCl (Cymbalta -) 60 mg PO HS [facility] Last Admin: 05/12/17 21:34 Dose: 60 mg Fenofibric Acid (Trilipix -) 135 mg PO DAILY [facility] Last Admin: 05/13/17 10:13 Dose: 135 mg Fluticasone Propionate (Flonase -) 2 spray NS DAILY [facility] Last Admin: 05/13/17 10:10 Dose: 2 sprays Furosemide (Lasix -) 40 mg PO DAILY [facility] Last Admin: 05/13/17 10:10 Dose: 40 mg Furosemide (Lasix Injection -) 40 mg IVPUSH ONCE ONE Stop: 05/13/17 11:42 Gabapentin (Neurontin -) 600 mg PO BID [facility] Last Admin: 05/13/17 10:10 Dose: 600 mg Ertapenem 1 gm/ Sodium (Chloride) 50 mls @ 50 mls/hr IVPB DAILY [facility] PRN Reason: Protocol Last Admin: 05/12/17 11:12 Dose: 50 mls/hr Vancomycin HCl 1,250 mg/ (Sodium Chloride) 250 mls @ 250 mls/hr IVPB DAILY [facility] PRN Reason: Protocol Last Admin: 05/13/17 11:01 Dose: 250 mls/hr Lactobacillus Acidophilus (Bacid -) 1 tab PO DAILY [facility] Last Admin: 05/13/17 10:10 Dose: 1 tab Levothyroxine Sodium (Synthroid -) 50 mcg PO DAILY@0700 [facility] Last Admin: 05/13/17 06:04 Dose: 50 mcg Magnesium Chloride (Slow-Mag -) 64 mg PO DAILY [facility] Last Admin: 05/13/17 10:11 Dose: 64 mg Metoprolol Tartrate (Lopressor -) 25 mg PO BID [facility] Last Admin: 05/13/17 10:10 Dose: 25 mg Slow Release Ferrous Sulfate (45mg Elemental Feso4) 1 each PO BID [facility] Last Admin: 05/13/17 10:12 Dose: 1 each Potassium Chloride (K-Dur -) 20 meq PO DAILY [facility] Last Admin: 05/13/17 10:10 Dose: 20 meq Ranitidine HCl (Zantac -) 150 mg PO BID [facility] Last Admin: 05/13/17 10:10 Dose: 150 mg Senna (Senna -) 2 tab PO DAILY [facility] Last Admin: 05/13/17 10:10 Dose: 2 tab Tiotropium [place] (Spiriva -) 1 puff IH DAILY [facility] Last Admin: 05/13/17 10:12 Dose: 1 puff - Objective Vital Signs: Vital Signs Temperature 98.5 F 05/13/17 10:00 Pulse Rate 81 05/13/17 10:00 Respiratory Rate 12 05/13/17 10:00 Blood Pressure 152/76 05/13/17 10:00 O2 Sat by Pulse Oximetry (%) 100 05/13/17 09:00 Constitutional: Yes: Well Nourished, Calm Eyes: Yes: WNL HENT: Yes: WNL Neck: Yes: Supple Cardiovascular: Yes: Pulse Irregular, S1, S2 Respiratory: Yes: Rales (few crackles r base) Gastrointestinal: Yes: Normal Bowel Sounds, Soft Extremities: Yes: WNL Edema: No Labs: CBC, BMP 05/13/17 06:20 05/13/17 06:20 Assessment/Plan Problem List - Problems (1) Shortness of breath Code(s): R06.02 - SHORTNESS OF BREATH (2) Atrial fibrillation Code(s): I48.91 - UNSPECIFIED ATRIAL FIBRILLATION (3) CHF (congestive heart failure) Code(s): I50.9 - HEART FAILURE, UNSPECIFIED (4) HTN (hypertension) Code(s): I10 - ESSENTIAL (PRIMARY) HYPERTENSION (5) Malignant neoplasm of skin of jain Code(s): C44.309 - UNSP MALIGNANT NEOPLASM OF SKIN OF OTHER PARTS OF FACE (6) PVD (peripheral vascular disease) Code(s): I73.9 - PERIPHERAL VASCULAR DISEASE, UNSPECIFIED 7 PNEUMONIA Assessment/Plan O2 a ABX PER ID Peggy BD [place] PRN AC DR PELLETIER
[2017-05-13] MEDS: ERTAPENEM SODIUM 1 GM in SODIUM CHLORIDE 50 ML IVPB SCH (12:43)
[2017-05-13] MEDS ORDERED: MAG HYDROX/AL HYDROX/SIMETH 30 ML UNIT-DOSE CUP PO PRN (12:50)
--- NOTE | 2017-05-13 14:06 | PN ---
Progress Note, Physician History of Present Illness: says he feels better no complaints patient not on nasal cannula - Current Medication List Current Medications: Active Medications Acetaminophen (Tylenol -) 650 mg PO Q6H PRN PRN Reason: FEVER OR PAIN Al Hydroxide/Mg Hydroxide (Mylanta Oral Suspension -) 30 ml PO Q6H PRN PRN Reason: INDIGESTION Last Admin: 05/13/17 13:00 Dose: 30 ml Albuterol/Ipratropium (Duoneb -) 1 amp NEB TIDR [facility] Last Admin: 05/13/17 06:20 Dose: 1 amp Ascorbic Acid (Vitamin C -) 500 mg PO HS [facility] Last Admin: 05/12/17 21:33 Dose: 500 mg Atorvastatin Calcium (Lipitor -) 10 mg PO HS [facility] Last Admin: 05/12/17 21:33 Dose: 10 mg Brimonidine Tartrate (Alphagan 0.15% -) 1 drop OD BID [facility] Last Admin: 05/13/17 10:12 Dose: 1 drop Cholecalciferol (Vitamin D3 -) 1,000 unit PO DAILY [facility] Last Admin: 05/13/17 10:10 Dose: 1,000 unit Dabigatran (Pradaxa -) 150 mg PO BID [facility] Last Admin: 05/13/17 10:11 Dose: 150 mg Docusate Sodium (Colace -) 200 mg PO HS [facility] Last Admin: 05/12/17 21:33 Dose: 200 mg Duloxetine HCl (Cymbalta -) 60 mg PO HS [facility] Last Admin: 05/12/17 21:34 Dose: 60 mg Fenofibric Acid (Trilipix -) 135 mg PO DAILY [facility] Last Admin: 05/13/17 10:13 Dose: 135 mg Fluticasone Propionate (Flonase -) 2 spray NS DAILY [facility] Last Admin: 05/13/17 10:10 Dose: 2 sprays Furosemide (Lasix -) 40 mg PO DAILY [facility] Last Admin: 05/13/17 10:10 Dose: 40 mg Gabapentin (Neurontin -) 600 mg PO BID [facility] Last Admin: 05/13/17 10:10 Dose: 600 mg Ertapenem 1 gm/ Sodium (Chloride) 50 mls @ 50 mls/hr IVPB DAILY [facility] PRN Reason: Protocol Last Admin: 05/13/17 12:43 Dose: 50 mls/hr Vancomycin HCl 1,250 mg/ (Sodium Chloride) 250 mls @ 250 mls/hr IVPB DAILY [facility] PRN Reason: Protocol Last Admin: 05/13/17 11:01 Dose: 250 mls/hr Lactobacillus Acidophilus (Bacid -) 1 tab PO DAILY [facility] Last Admin: 05/13/17 10:10 Dose: 1 tab Levothyroxine Sodium (Synthroid -) 50 mcg PO DAILY@0700 [facility] Last Admin: 05/13/17 06:04 Dose: 50 mcg Magnesium Chloride (Slow-Mag -) 64 mg PO DAILY [facility] Last Admin: 05/13/17 10:11 Dose: 64 mg Metoprolol Tartrate (Lopressor -) 25 mg PO BID [facility] Last Admin: 05/13/17 10:10 Dose: 25 mg Slow Release Ferrous Sulfate (45mg Elemental Feso4) 1 each PO BID [facility] Last Admin: 05/13/17 10:12 Dose: 1 each Potassium Chloride (K-Dur -) 20 meq PO DAILY [facility] Last Admin: 05/13/17 10:10 Dose: 20 meq Ranitidine HCl (Zantac -) 150 mg PO BID [facility] Last Admin: 05/13/17 10:10 Dose: 150 mg Senna (Senna -) 2 tab PO DAILY [facility] Last Admin: 05/13/17 10:10 Dose: 2 tab Tiotropium [place] (Spiriva -) 1 puff IH DAILY [facility] Last Admin: 05/13/17 10:12 Dose: 1 puff - Objective Vital Signs: Vital Signs Temperature 98.5 F 05/13/17 10:00 Pulse Rate 81 05/13/17 10:00 Respiratory Rate 12 05/13/17 10:00 Blood Pressure 152/76 05/13/17 10:00 O2 Sat by Pulse Oximetry (%) 100 05/13/17 09:00 Constitutional: Yes: No Distress, Calm Cardiovascular: Yes: Regular Rate and Rhythm Respiratory: Yes: Regular, CTA Bilaterally Gastrointestinal: Yes: Normal Bowel Sounds, Soft Musculoskeletal: Yes: WNL Extremities: Yes: WNL Neurological: Yes: Alert, Oriented Psychiatric: Yes: Alert, Oriented Labs: CBC, BMP 05/13/17 06:20 05/13/17 06:20 Assessment/Plan Problem List - Problems (1) Pneumonia Code(s): J18.9 - PNEUMONIA, UNSPECIFIED ORGANISM Qualifiers: Laterality: right Lung location: lower lobe of lung (2) Alkalosis, metabolic Code(s): E87.3 - ALKALOSIS (3) Atrial fibrillation Code(s): I48.91 - UNSPECIFIED ATRIAL FIBRILLATION Qualifiers: Atrial fibrillation type: chronic Qualified Code(s): I48.2 - Chronic atrial fibrillation (4) CHF (congestive heart failure) Code(s): I50.9 - HEART FAILURE, UNSPECIFIED Qualifiers: Congestive heart failure type: unspecified congestive heart failure type Congestive heart failure chronicity: chronic Qualified Code(s): I50.9 - Heart failure, unspecified (5) GERD (gastroesophageal reflux disease) Code(s): K21.9 - GASTRO-ESOPHAGEAL REFLUX DISEASE WITHOUT ESOPHAGITIS (6) HTN (hypertension) Code(s): I10 - ESSENTIAL (PRIMARY) HYPERTENSION (7) Hyperlipemia Code(s): E78.5 - HYPERLIPIDEMIA, UNSPECIFIED (8) Hypothyroidism Code(s): E03.9 - HYPOTHYROIDISM, UNSPECIFIED (9) PVD (peripheral vascular disease) Code(s): I73.9 - PERIPHERAL VASCULAR DISEASE, UNSPECIFIED Assessment/Plan (1) Community acquired pneumonia (2) Alkalosis, metabolic Code(s): E87.3 - ALKALOSIS (3) Atrial fibrillation Code(s): I48.91 - UNSPECIFIED ATRIAL FIBRILLATION Qualifiers: Atrial fibrillation type: chronic Qualified Code(s): I48.2 - Chronic atrial fibrillation (4) CHF (congestive heart failure) Code(s): I50.9 - HEART FAILURE, UNSPECIFIED Qualifiers: Congestive heart failure type: unspecified congestive heart failure type Congestive heart failure chronicity: chronic Qualified Code(s): I50.9 - Heart failure, unspecified (5) GERD (gastroesophageal reflux disease) Code(s): K21.9 - GASTRO-ESOPHAGEAL REFLUX DISEASE WITHOUT ESOPHAGITIS (6) HTN (hypertension) Code(s): I10 - ESSENTIAL (PRIMARY) HYPERTENSION (7) Hyperlipemia Code(s): E78.5 - HYPERLIPIDEMIA, UNSPECIFIED (8) Hypothyroidism Code(s): E03.9 - HYPOTHYROIDISM, UNSPECIFIED (9) PVD (peripheral vascular disease) Code(s): I73.9 - PERIPHERAL VASCULAR DISEASE, UNSPECIFIED plan continue abx incentive kimberly continue vanco will check vanco trough tomorrow
[2017-05-13] MEDS: ASCORBIC ACID 500 MG TABLET (FP) PO SCH (21:40)
[2017-05-13] MEDS: DOCUSATE SODIUM 100 MG CAPSULE (FP) PO SCH (21:40)
[2017-05-13] MEDS: ATORVASTATIN CA 10 MG TABLET (FP) PO SCH (21:40)
[2017-05-13] MEDS: DULoxetine HCL 30 MG CAPSULE.DR (FP) PO SCH (21:40)
[2017-05-14] MEDS: ALBUTEROL SO4 2.5/IPRATROPIUM 0.5 INH SOL 3 ML VIAL.NEB. NEB SCH ×3 (06:01→22:00)
[2017-05-14] MEDS: LEVOTHYROXINE NA 50 MCG TABLET (FP) PO SCH (06:33)
[2017-05-14 07:58] LABS: BASOPHIL 0.6 % (0-2.0); MCHC 33.1 g/dl (32.0-35.9); MEAN CELL VOLUME 105.7 fl (80-96); MEAN PLT VOLUME 8.5 fl (7.5-11.1); NEUTROPHILS 86.5 % (42.8-82.8); PLATELET COUNT 171 K/MM3 (134-434); WHITE BLOOD COUNT 12.3 K/mm3 (4.0-10.0)
[2017-05-14 09:06] LABS: ANION GAP 5 (8-16); CALCIUM 9.1 mg/dL (8.5-10.1); CO2 38 mmol/L (21-32); CREATININE 1.1 mg/dL (0.7-1.3); GLUCOSE,RANDOM 98 mg/dL (74-106); MAGNESIUM 2.5 mg/dL (1.8-2.4); PHOSPHOROUS 2.8 mg/dL (2.5-4.9)
[2017-05-14] MEDS ORDERED: PT OWN MED DRAWER 7, Y5N ONE ×2 (10:15→10:52)
[2017-05-14] MEDS: RANITIDINE HCL 150 MG TABLET (FP) PO SCH ×2 (10:22→22:29)
[2017-05-14] MEDS: METOPROLOL TARTRATE 25 MG TABLET (FP) PO SCH ×2 (10:22→22:28)
[2017-05-14] MEDS: DABIGATRAN ETEXILATE MESYLATE 150 MG CAPSULE PO SCH ×2 (10:22→22:29)
[2017-05-14] MEDS: SENNOSIDES 8.6MG TABLET (FP) PO SCH (10:23)
[2017-05-14] MEDS: FUROSEMIDE 40 MG TABLET (FP) PO SCH (10:23)
[2017-05-14] MEDS: GABAPENTIN 300 MG CAPSULE (FP) PO SCH (10:23)
[2017-05-14] MEDS: FERROUS SULFATE PO SCH ×2 (10:24→22:28)
[2017-05-14] MEDS: FENOFIBRIC ACID 135 MG CAP PO SCH (10:24)
[2017-05-14] MEDS: FLUTICASONE PROP 0.05% 16 GM NASAL SPRAY NS SCH (10:24)
[2017-05-14] MEDS: BRIMONIDINE TARTRATE 0.15% OPHTHALMIC 5 ML BOTTLE OD SCH ×2 (10:24→22:33)
[2017-05-14] MEDS: POTASSIUM CHLORIDE TABS 20 MEQ TABLET.ER (FP) PO SCH (10:24)
[2017-05-14] MEDS: ERTAPENEM SODIUM 1 GM in SODIUM CHLORIDE 50 ML IVPB SCH (10:24)
[2017-05-14] MEDS: LACTOBACILLUS ACIDOPHILUS 1 EACH TAB (FP) PO SCH (10:24)
[2017-05-14] MEDS: TIOTROPIUM BROMIDE 18 MCG/INH (DEVICE W/ 5 CAPSULES) IH SCH (10:25)
[2017-05-14] MEDS: CHOLECALCIFEROL (VITAMIN D3) 1,000 UNIT TABLET (FP) PO SCH (10:26)
[2017-05-14] MEDS: VANCOMYCIN 1,250 MG in SODIUM CHLORIDE 250 ML IVPB SCH (10:26)
[2017-05-14] MEDS: MAGNESIUM CL 64 MG TABLET.SA PO SCH (10:27)
--- NOTE | 2017-05-14 11:57 | PN ---
Progress Note (short form) - Note Progress Note: Resting in NAD on NC O2. No acute events overnight. Denies CP or SOB. Intake & Output 05/11/17 05/12/17 05/13/17 05/14/17 23:59 23:59 23:59 23:59 Intake Total 1660 180 900 120 Output Total 800 200 Balance 860 -20 900 120 Weight 151 lb 6 oz 157 lb 12.8 oz 155 lb 9.6 oz 155 lb 6 oz Last Vital Signs Temp Pulse Resp BP Pulse Ox 97.9 F 73 20 110/51 99 05/14/17 05:00 05/14/17 05:00 05/14/17 05:00 05/14/17 05:00 05/13/17 21:00 Active Medications Acetaminophen (Tylenol -) 650 mg PO Q6H PRN PRN Reason: FEVER OR PAIN Al Hydroxide/Mg Hydroxide (Mylanta Oral Suspension -) 30 ml PO Q6H PRN PRN Reason: INDIGESTION Last Admin: 05/13/17 13:00 Dose: 30 ml Albuterol/Ipratropium (Duoneb -) 1 amp NEB TIDR [facility] Last Admin: 05/14/17 06:01 Dose: 1 amp Ascorbic Acid (Vitamin C -) 500 mg PO HS [facility] Last Admin: 05/13/17 21:40 Dose: 500 mg Atorvastatin Calcium (Lipitor -) 10 mg PO HS [facility] Last Admin: 05/13/17 21:40 Dose: 10 mg Brimonidine Tartrate (Alphagan 0.15% -) 1 drop OD BID [facility] Last Admin: 05/14/17 10:24 Dose: 1 drop Cholecalciferol (Vitamin D3 -) 1,000 unit PO DAILY [facility] Last Admin: 05/14/17 10:26 Dose: 1,000 unit Dabigatran (Pradaxa -) 150 mg PO BID [facility] Last Admin: 05/14/17 10:22 Dose: 150 mg Docusate Sodium (Colace -) 200 mg PO HS [facility] Last Admin: 05/13/17 21:40 Dose: 200 mg Duloxetine HCl (Cymbalta -) 60 mg PO HS [facility] Last Admin: 05/13/17 21:40 Dose: 60 mg Fenofibric Acid (Trilipix -) 135 mg PO DAILY [facility] Last Admin: 05/14/17 10:24 Dose: 135 mg Fluticasone Propionate (Flonase -) 2 spray NS DAILY [facility] Last Admin: 05/14/17 10:24 Dose: 1 sprays Furosemide (Lasix -) 40 mg PO DAILY [facility] Last Admin: 05/14/17 10:23 Dose: 40 mg Gabapentin (Neurontin -) 600 mg PO BID [facility] Last Admin: 05/14/17 10:23 Dose: 600 mg Ertapenem 1 gm/ Sodium (Chloride) 50 mls @ 50 mls/hr IVPB DAILY [facility] PRN Reason: Protocol Last Admin: 05/14/17 10:24 Dose: 50 mls/hr Vancomycin HCl 1,250 mg/ (Sodium Chloride) 250 mls @ 250 mls/hr IVPB DAILY [facility] PRN Reason: Protocol Last Admin: 05/14/17 10:26 Dose: Not Given Lactobacillus Acidophilus (Bacid -) 1 tab PO DAILY [facility] Last Admin: 05/14/17 10:24 Dose: 1 tab Levothyroxine Sodium (Synthroid -) 50 mcg PO DAILY@0700 [facility] Last Admin: 05/14/17 06:33 Dose: 50 mcg Magnesium Chloride (Slow-Mag -) 64 mg PO DAILY [facility] Last Admin: 05/14/17 10:27 Dose: Not Given Metoprolol Tartrate (Lopressor -) 25 mg PO BID [facility] Last Admin: 05/14/17 10:22 Dose: 25 mg Slow Release Ferrous Sulfate (45mg Elemental Feso4) 1 each PO BID [facility] Last Admin: 05/14/17 10:24 Dose: 1 each Potassium Chloride (K-Dur -) 20 meq PO DAILY [facility] Last Admin: 05/14/17 10:24 Dose: 20 meq Ranitidine HCl (Zantac -) 150 mg PO BID [facility] Last Admin: 05/14/17 10:22 Dose: 150 mg Senna (Senna -) 2 tab PO DAILY [facility] Last Admin: 05/14/17 10:23 Dose: 2 tab Tiotropium [place] (Spiriva -) 1 puff IH DAILY [facility] Last Admin: 05/14/17 10:25 Dose: 1 puff Constitutional: Yes: NAD Eyes: Yes: WNL HENT: Yes: WNL Neck: Yes: Supple Cardiovascular: Yes: Pulse Irregular, S1, S2 Respiratory: Yes: scattered bilateral rhonchi Right > Left Gastrointestinal: Yes: Normal Bowel Sounds, Soft Extremities: Yes: WNL Edema: No Labs: Laboratory Results - last 24 hr 05/14/17 05/14/17 05/14/17 06:00 07:00 07:00 WBC 12.3 H RBC 2.88 L Hgb 10.1 L Hct 30.4 L MCV 105.7 H MCH 35.0 H MCHC 33.1 RDW 17.0 H Plt Count 171 MPV 8.5 Neutrophils % 86.5 H Lymphocytes % 2.0 L Monocytes % 9.9 Eosinophils % 1.0 Basophils % 0.6 Sodium 136 Potassium 4.5 Chloride 93 L Carbon Dioxide 38 H Anion Gap 5 L BUN 33 H D Creatinine 1.1 D Random Glucose 98 Calcium 9.1 Phosphorus 2.8 Magnesium 2.5 H Vancomycin Pre-Dose 19.601 H* Assessment/Plan Problem List - Problems (1) Shortness of breath Code(s): R06.02 - SHORTNESS OF BREATH (2) Atrial fibrillation Code(s): I48.91 - UNSPECIFIED ATRIAL FIBRILLATION (3) CHF (congestive heart failure) Code(s): I50.9 - HEART FAILURE, UNSPECIFIED (4) HTN (hypertension) Code(s): I10 - ESSENTIAL (PRIMARY) HYPERTENSION (5) Malignant neoplasm of skin of uatsdin Code(s): C44.309 - UNSP MALIGNANT NEOPLASM OF SKIN OF OTHER PARTS OF FACE (6) PVD (peripheral vascular disease) Code(s): I73.9 - PERIPHERAL VASCULAR DISEASE, UNSPECIFIED 7 PNEUMONIA Assessment/Plan ABX per ID -> Consider deescalate O2 as needed PT Spiriva BD [place] PRN AC Dr Boo
[2017-05-14] MEDS ORDERED: TAMSULOSIN HCL 0.4 MG CAP.ER.24H (FP) PO ONE (12:38)
--- NOTE | 2017-05-14 12:51 | PN ---
Progress Note (short form) - Note Progress Note: CC: sob S: s/p lasix 40 mg IV x 1 yesterday. bp drop after. Also started on lopressor bid yesterday. tele discontinued. patient appears weak, ? confused. other than fatigue denies discomfort. no cp , sob, palps, dizziness. Current Medications Acetaminophen (Tylenol -) 650 mg PO Q6H PRN PRN Reason: FEVER OR PAIN Al Hydroxide/Mg Hydroxide (Mylanta Oral Suspension -) 30 ml PO Q6H PRN PRN Reason: INDIGESTION Last Admin: 05/13/17 13:00 Dose: 30 ml Albuterol/Ipratropium (Duoneb -) 1 amp NEB TIDR [facility] Last Admin: 05/14/17 06:01 Dose: 1 amp Ascorbic Acid (Vitamin C -) 500 mg PO HS [facility] Last Admin: 05/13/17 21:40 Dose: 500 mg Atorvastatin Calcium (Lipitor -) 10 mg PO HS [facility] Last Admin: 05/13/17 21:40 Dose: 10 mg Brimonidine Tartrate (Alphagan 0.15% -) 1 drop OD BID [facility] Last Admin: 05/14/17 10:24 Dose: 1 drop Cholecalciferol (Vitamin D3 -) 1,000 unit PO DAILY [facility] Last Admin: 05/14/17 10:26 Dose: 1,000 unit Dabigatran (Pradaxa -) 150 mg PO BID [facility] Last Admin: 05/14/17 10:22 Dose: 150 mg Docusate Sodium (Colace -) 200 mg PO HS [facility] Last Admin: 05/13/17 21:40 Dose: 200 mg Duloxetine HCl (Cymbalta -) 60 mg PO HS [facility] Last Admin: 05/13/17 21:40 Dose: 60 mg Fenofibric Acid (Trilipix -) 135 mg PO DAILY [facility] Last Admin: 05/14/17 10:24 Dose: 135 mg Fluticasone Propionate (Flonase -) 2 spray NS DAILY [facility] Last Admin: 05/14/17 10:24 Dose: 1 sprays Furosemide (Lasix -) 40 mg PO DAILY [facility] Last Admin: 05/14/17 10:23 Dose: 40 mg Gabapentin (Neurontin -) 600 mg PO BID [facility] Last Admin: 05/14/17 10:23 Dose: 600 mg Ertapenem 1 gm/ Sodium (Chloride) 50 mls @ 50 mls/hr IVPB DAILY [facility] PRN Reason: Protocol Last Admin: 05/14/17 10:24 Dose: 50 mls/hr Vancomycin HCl 1,250 mg/ (Sodium Chloride) 250 mls @ 250 mls/hr IVPB DAILY [facility] PRN Reason: Protocol Last Admin: 05/14/17 10:26 Dose: Not Given Lactobacillus Acidophilus (Bacid -) 1 tab PO DAILY [facility] Last Admin: 05/14/17 10:24 Dose: 1 tab Levothyroxine Sodium (Synthroid -) 50 mcg PO DAILY@0700 [facility] Last Admin: 05/14/17 06:33 Dose: 50 mcg Magnesium Chloride (Slow-Mag -) 64 mg PO DAILY [facility] Last Admin: 05/14/17 10:27 Dose: Not Given Metoprolol Tartrate (Lopressor -) 25 mg PO BID [facility] Last Admin: 05/14/17 10:22 Dose: 25 mg Slow Release Ferrous Sulfate (45mg Elemental Feso4) 1 each PO BID [facility] Last Admin: 05/14/17 10:24 Dose: 1 each Potassium Chloride (K-Dur -) 20 meq PO DAILY [facility] Last Admin: 05/14/17 10:24 Dose: 20 meq Ranitidine HCl (Zantac -) 150 mg PO BID [facility] Last Admin: 05/14/17 10:22 Dose: 150 mg Senna (Senna -) 2 tab PO DAILY [facility] Last Admin: 05/14/17 10:23 Dose: 2 tab Tamsulosin HCl (Flomax -) 0.4 mg PO ONCE ONE Stop: 05/14/17 12:39 Tamsulosin HCl (Flomax -) 0.4 mg PO DAILY@0830 [facility] Tiotropium [place] (Spiriva -) 1 puff IH DAILY [facility] Last Admin: 05/14/17 10:25 Dose: 1 puff Vital Signs - 24 hr 05/13/17 05/13/17 05/13/17 14:36 17:31 17:45 Temperature 98.2 F 98 F Pulse Rate 70 80 Respiratory 18 18 Rate Blood Pressure 97/39 115/63 O2 Sat by Pulse 94 L Oximetry (%) 05/13/17 05/14/17 05/14/17 21:00 05:00 09:00 Temperature 97.6 F 97.9 F 98.7 F Pulse Rate 78 73 82 Respiratory 20 20 12 Rate Blood Pressure 116/55 110/51 124/65 O2 Sat by Pulse 99 Oximetry (%) 05/14/17 10:00 Temperature Pulse Rate Respiratory 20 Rate Blood Pressure O2 Sat by Pulse 98 Oximetry (%) Intake & Output 05/12/17 05/13/17 05/14/17 05/15/17 07:59 07:59 07:59 07:59 Intake Total 1570 120 900 120 Output Total 800 200 Balance 770 -80 900 120 Weight 157 lb 12.8 oz 155 lb 9.6 oz 155 lb 6 oz nad no jvd, sleepy, ? confused irreg, s1s2 no mrg bibasilar rales nl eff no le e/c/c abd nt nd pos bs no jaundice diaphoresis pos dp pt no carotid bruits CBC, BMP 05/14/17 07:00 05/14/17 07:00 Laboratory Tests 05/13/17 05/14/17 05/14/17 06:20 06:00 07:00 Magnesium 2.5 H Albumin 2.8 L Vancomycin Pre-Dose 19.601 H* ecg 05/09/17: afib, rate controlled, nl qtc, no ischemic changes, rbbb prior tele: afib with rvr overnight to 150s, now rate controlled cxr: clear lungs echo 01/2015: mild dec lvef, ant/septal HK, nl rv size, mild bi-atrial dil, mild tr, rvsp 40-50 echo 10/2016: low nl lvef, nl lv size, nl rv, mild elena, mild mr/tr, rvsp 40-50 mibi 10/2016: no ischemia 86 Y/O Gentleman with a PMhx that includes CKD, CAD s/p pci to rca 2004 (patent on cath 2006), PVD s/p le bypass/stents/amputations, HTN, Afib on AC, here with sob, weakness. fatigue, sob: -bnp very high, but outpt lasix with dr hinds has not improved his sxs so does not seem that chf causing his sxs -? PNA: patchy LLL infiltrate on CXR, hi CRP. currently being tx'd with abx by pulm and ID afib: -cont pradaxa (tolerating this for several years) -05/13 started low dose metoprolol (monitor for wheezing, monitor BP) - 05/14 rate controlled, but bp went from being elevated to running low with sys dips into 90's, (also appears slightly lethargic) decrease to 12.5 mg bid and monitor. cad s/p remote pci: -stable -no signs acs -cont AC, statin. has been off bb/acei due to low bp as outpt, but started BB here for AF chronic diastolic chf: -bnp 23K (baseline 8-10K) -05/13: has been on lasix 40 po daily, wts ranging 151-157 here, suspect JVD on exam though he is asymptomatic. cxr 05/12 with mild incr interstl markings ? mild chf. given lasix 40mg IVP x 1 - 05/14: bp drop after lasix. today bicarb up to 38 and lethargic (baseline unknown to me). Would hold po lasix tomorrow, monitor for when to resume. K 4.5 , mg 2.5. can stop standing repletion. - daily weights, bmp. htn: -labile here, currently running low. hld: -cont home statin anemia: -chronic, counts stable here
--- NOTE | 2017-05-14 13:04 | PN ---
Progress Note, Physician Chief Complaint: Mr Rivas is very lethargic today but says he feels good. Says his breathing is great and he is without pain. However has change in mental status. - Current Medication List Current Medications: Active Medications Acetaminophen (Tylenol -) 650 mg PO Q6H PRN PRN Reason: FEVER OR PAIN Al Hydroxide/Mg Hydroxide (Mylanta Oral Suspension -) 30 ml PO Q6H PRN PRN Reason: INDIGESTION Last Admin: 05/13/17 13:00 Dose: 30 ml Albuterol/Ipratropium (Duoneb -) 1 amp NEB TIDR [facility] Last Admin: 05/14/17 06:01 Dose: 1 amp Ascorbic Acid (Vitamin C -) 500 mg PO HS [facility] Last Admin: 05/13/17 21:40 Dose: 500 mg Atorvastatin Calcium (Lipitor -) 10 mg PO HS [facility] Last Admin: 05/13/17 21:40 Dose: 10 mg Brimonidine Tartrate (Alphagan 0.15% -) 1 drop OD BID [facility] Last Admin: 05/14/17 10:24 Dose: 1 drop Cholecalciferol (Vitamin D3 -) 1,000 unit PO DAILY [facility] Last Admin: 05/14/17 10:26 Dose: 1,000 unit Dabigatran (Pradaxa -) 150 mg PO BID [facility] Last Admin: 05/14/17 10:22 Dose: 150 mg Docusate Sodium (Colace -) 200 mg PO HS [facility] Last Admin: 05/13/17 21:40 Dose: 200 mg Duloxetine HCl (Cymbalta -) 60 mg PO HS [facility] Last Admin: 05/13/17 21:40 Dose: 60 mg Fenofibric Acid (Trilipix -) 135 mg PO DAILY [facility] Last Admin: 05/14/17 10:24 Dose: 135 mg Fluticasone Propionate (Flonase -) 2 spray NS DAILY [facility] Last Admin: 05/14/17 10:24 Dose: 1 sprays Furosemide (Lasix -) 40 mg PO DAILY [facility] Last Admin: 05/14/17 10:23 Dose: 40 mg Gabapentin (Neurontin -) 600 mg PO BID [facility] Last Admin: 05/14/17 10:23 Dose: 600 mg Ertapenem 1 gm/ Sodium (Chloride) 50 mls @ 50 mls/hr IVPB DAILY [facility] PRN Reason: Protocol Last Admin: 05/14/17 10:24 Dose: 50 mls/hr Vancomycin HCl 1,250 mg/ (Sodium Chloride) 250 mls @ 250 mls/hr IVPB DAILY [facility] PRN Reason: Protocol Last Admin: 05/14/17 10:26 Dose: Not Given Lactobacillus Acidophilus (Bacid -) 1 tab PO DAILY [facility] Last Admin: 05/14/17 10:24 Dose: 1 tab Levothyroxine Sodium (Synthroid -) 50 mcg PO DAILY@0700 [facility] Last Admin: 05/14/17 06:33 Dose: 50 mcg Magnesium Chloride (Slow-Mag -) 64 mg PO DAILY [facility] Last Admin: 05/14/17 10:27 Dose: Not Given Metoprolol Tartrate (Lopressor -) 25 mg PO BID [facility] Last Admin: 05/14/17 10:22 Dose: 25 mg Slow Release Ferrous Sulfate (45mg Elemental Feso4) 1 each PO BID [facility] Last Admin: 05/14/17 10:24 Dose: 1 each Potassium Chloride (K-Dur -) 20 meq PO DAILY [facility] Last Admin: 05/14/17 10:24 Dose: 20 meq Ranitidine HCl (Zantac -) 150 mg PO BID [facility] Last Admin: 05/14/17 10:22 Dose: 150 mg Senna (Senna -) 2 tab PO DAILY [facility] Last Admin: 05/14/17 10:23 Dose: 2 tab Tamsulosin HCl (Flomax -) 0.4 mg PO ONCE ONE Stop: 05/14/17 12:39 Tamsulosin HCl (Flomax -) 0.4 mg PO DAILY@0830 [facility] Tiotropium [place] (Spiriva -) 1 puff IH DAILY [facility] Last Admin: 05/14/17 10:25 Dose: 1 puff - Objective Vital Signs: Vital Signs Temperature 37.1 C 05/14/17 09:00 Pulse Rate 84 05/14/17 10:05 Respiratory Rate 20 05/14/17 10:00 Blood Pressure 124/65 05/14/17 09:00 O2 Sat by Pulse Oximetry (%) 97 05/14/17 10:05 Constitutional: Yes: Well Nourished, No Distress, Other (lethargic but arousable to voice) Cardiovascular: Yes: Regular Rate and Rhythm. No: Gallop, Murmur, Rub Respiratory: Yes: Regular, CTA Bilaterally. No: Rales, Rhonchi, Wheezes Gastrointestinal: Yes: Normal Bowel Sounds, Soft. No: Distention, Tenderness Extremities: Yes: WNL Edema: No Labs: CBC, BMP 05/14/17 07:00 05/14/17 07:00 Problem List - Problems (1) Pneumonia Code(s): J18.9 - PNEUMONIA, UNSPECIFIED ORGANISM Qualifiers: Laterality: right Lung location: lower lobe of lung (2) Alkalosis, metabolic Code(s): E87.3 - ALKALOSIS (3) Atrial fibrillation Code(s): I48.91 - UNSPECIFIED ATRIAL FIBRILLATION Qualifiers: Atrial fibrillation type: chronic Qualified Code(s): I48.2 - Chronic atrial fibrillation (4) CHF (congestive heart failure) Code(s): I50.9 - HEART FAILURE, UNSPECIFIED Qualifiers: Congestive heart failure type: unspecified congestive heart failure type Congestive heart failure chronicity: chronic Qualified Code(s): I50.9 - Heart failure, unspecified (5) GERD (gastroesophageal reflux disease) Code(s): K21.9 - GASTRO-ESOPHAGEAL REFLUX DISEASE WITHOUT ESOPHAGITIS (6) HTN (hypertension) Code(s): I10 - ESSENTIAL (PRIMARY) HYPERTENSION (7) Hyperlipemia Code(s): E78.5 - HYPERLIPIDEMIA, UNSPECIFIED (8) Hypothyroidism Code(s): E03.9 - HYPOTHYROIDISM, UNSPECIFIED (9) PVD (peripheral vascular disease) Code(s): I73.9 - PERIPHERAL VASCULAR DISEASE, UNSPECIFIED Assessment/Plan (1) Community acquired pneumonia Assessment/Plan: -leukocytosis improving -continue antibiotics per ID (2) Alkalosis, metabolic Assessment/Plan: -compensated chronic respiratory alkalosis -suspect underlying COPD considering smoking history -will need outpatient PFTs and pulmonary follow up Code(s): E87.3 - ALKALOSIS (3) Atrial fibrillation Assessment/Plan: -controlled -continue pradaxa Code(s): I48.91 - UNSPECIFIED ATRIAL FIBRILLATION Qualifiers: Atrial fibrillation type: chronic Qualified Code(s): I48.2 - Chronic atrial fibrillation (4) CHF (congestive heart failure) Assessment/Plan: -ECHO reviewed and cardiology following -not in exacerbation -continue oral lasix Code(s): I50.9 - HEART FAILURE, UNSPECIFIED Qualifiers: Congestive heart failure type: unspecified congestive heart failure type Congestive heart failure chronicity: chronic Qualified Code(s): I50.9 - Heart failure, unspecified (5) GERD (gastroesophageal reflux disease) Assessment/Plan: -continue zantac Code(s): K21.9 - GASTRO-ESOPHAGEAL REFLUX DISEASE WITHOUT ESOPHAGITIS (6) HTN (hypertension) Assessment/Plan: -controlled -continue lasix Code(s): I10 - ESSENTIAL (PRIMARY) HYPERTENSION (7) Hyperlipemia Assessment/Plan: -continue fenofibrate and lipitor Code(s): E78.5 - HYPERLIPIDEMIA, UNSPECIFIED (8) Hypothyroidism Assessment/Plan: -continue synthroid Code(s): E03.9 - HYPOTHYROIDISM, UNSPECIFIED (9) PVD (peripheral vascular disease) Assessment/Plan: -on pradaxa -does not complain of claudication Code(s): I73.9 - PERIPHERAL VASCULAR DISEASE, UNSPECIFIED (10) Urinary retention -unclear cause -straight cath -start on flomax -if does not improve, consult urology (11) Metabolic encephalopathy -neurology consult -agree with head CT -continue treating pneumonia
--- NOTE | 2017-05-14 17:51 | CONSULT ---
Consult - text type - Consultation Consultation Note: Neurology 86 year old male who presented with shortness of breath and weakness that had been progressive over several days with decreased exercise tolerance and evolving to shortness of breath at rest. He has been getting treatment for PNA and admitted for further treatment. Neurologically, I was consulted for altered mental status. At bedside, he is awake and alert but minimally responsive, but not following commands. He is fatigued appearing and with heavy breaths despite facemask. When questioned, would not answer and would not participate in confrontation testing. He has not had imaging of his brain and therefore I ordered CT head. 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) - Past Surgical History Past Surgical History: Yes: Bypass (left fem-pop), CABG (x3 2004), Cholecystectomy, Joint Replacement (bilateral knees), Orchiectomy (unilateral for testicular injury at 18yrs of age) - Smoking History Smoking history: Former smoker Have you smoked in the past 12 months: No Aproximately how many cigarettes per day: 0 If you are a former smoker, when did you quit?: 1983 - Alcohol/Substance Use Hx Alcohol Use: No History of Substance Use: reports: None - Social History Usual Living Arrangement: Yes: With Spouse ADL: Support Services (In [place]) 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) History of Recent Travel: No Home Medications - Allergies Allergies/Adverse Reactions: Allergies Allergy/AdvReac Type Severity Reaction Status Date / Time Penicillins Allergy Intermediate Rash Verified 05/08/17 14:14 Active Medications Acetaminophen (Tylenol -) 650 mg PO Q6H PRN PRN Reason: FEVER OR PAIN Al Hydroxide/Mg Hydroxide (Mylanta Oral Suspension -) 30 ml PO Q6H PRN PRN Reason: INDIGESTION Last Admin: 05/13/17 13:00 Dose: 30 ml Albuterol/Ipratropium (Duoneb -) 1 amp NEB TIDR [facility] Last Admin: 05/14/17 14:55 Dose: 1 amp Ascorbic Acid (Vitamin C -) 500 mg PO HS [facility] Last Admin: 05/13/17 21:40 Dose: 500 mg Atorvastatin Calcium (Lipitor -) 10 mg PO HS [facility] Last Admin: 05/13/17 21:40 Dose: 10 mg Brimonidine Tartrate (Alphagan 0.15% -) 1 drop OD BID [facility] Last Admin: 05/14/17 10:24 Dose: 1 drop Cholecalciferol (Vitamin D3 -) 1,000 unit PO DAILY [facility] Last Admin: 05/14/17 10:26 Dose: 1,000 unit Dabigatran (Pradaxa -) 150 mg PO BID [facility] Last Admin: 05/14/17 10:22 Dose: 150 mg Docusate Sodium (Colace -) 200 mg PO HS [facility] Last Admin: 05/13/17 21:40 Dose: 200 mg Duloxetine HCl (Cymbalta -) 60 mg PO [facility] Last Admin: 05/13/17 21:40 Dose: 60 mg Fenofibric Acid (Trilipix -) 135 mg PO DAILY [facility] Last Admin: 05/14/17 10:24 Dose: 135 mg Fluticasone Propionate (Flonase -) 2 spray NS DAILY [facility] Last Admin: 05/14/17 10:24 Dose: 1 sprays Furosemide (Lasix -) 40 mg PO DAILY [facility] Last Admin: 05/14/17 10:23 Dose: 40 mg Gabapentin (Neurontin -) 600 mg PO BID [facility] Last Admin: 05/14/17 10:23 Dose: 600 mg Ertapenem 1 gm/ Sodium (Chloride) 50 mls @ 50 mls/hr IVPB DAILY [facility] PRN Reason: Protocol Last Admin: 05/14/17 10:24 Dose: 50 mls/hr Vancomycin HCl 1,250 mg/ (Sodium Chloride) 250 mls @ 250 mls/hr IVPB DAILY [facility] PRN Reason: Protocol Last Admin: 05/14/17 10:26 Dose: Not Given Lactobacillus Acidophilus (Bacid -) 1 tab PO DAILY [facility] Last Admin: 05/14/17 10:24 Dose: 1 tab Levothyroxine Sodium (Synthroid -) 50 mcg PO DAILY@0700 [facility] Last Admin: 05/14/17 06:33 Dose: 50 mcg Magnesium Chloride (Slow-Mag -) 64 mg PO DAILY [facility] Last Admin: 05/14/17 10:27 Dose: Not Given Metoprolol Tartrate (Lopressor -) 25 mg PO BID [facility] Last Admin: 05/14/17 10:22 Dose: 25 mg Slow Release Ferrous Sulfate (45mg Elemental Feso4) 1 each PO BID [facility] Last Admin: 05/14/17 10:24 Dose: 1 each Potassium Chloride (K-Dur -) 20 meq PO DAILY [facility] Last Admin: 05/14/17 10:24 Dose: 20 meq Ranitidine HCl (Zantac -) 150 mg PO BID [facility] Last Admin: 05/14/17 10:22 Dose: 150 mg Senna (Senna -) 2 tab PO DAILY [facility] Last Admin: 05/14/17 10:23 Dose: 2 tab Tamsulosin HCl (Flomax -) 0.4 mg PO DAILY@0830 [facility] Tiotropium Naselle (Spiriva -) 1 puff IH DAILY [facility] Last Admin: 05/14/17 10:25 Dose: 1 puff Family Disease History - Family Disease History Family Disease History: [place]: Son (1 son from cancer, 1 son from alcohol abuse), Other: Father (old age), Mother (old age), Son Review of Systems Findings/Remarks: Full review of systems obtained, as per HPI and otherwise negative Physical Examination Vital Signs: Vital Signs Temperature 36.4 C 05/09/17 10:00 Pulse Rate 75 05/09/17 10:00 Respiratory Rate 15 05/09/17 10:00 Blood Pressure 111/59 05/09/17 10:00 O2 Sat by Pulse Oximetry (%) 100 05/09/17 05:01 Constitutional: Yes: Well Nourished, No Distress, Calm Eyes: Yes: Conjunctiva Clear, EOM Intact, PERRL Cardiovascular: Yes: Regular Rate and Rhythm. No: Gallop, Murmur, Rub Respiratory: Yes: Regular, CTA Bilaterally. No: Rales, Rhonchi, Wheezes Gastrointestinal: Yes: Normal Bowel Sounds, Soft. No: Distention, Tenderness Extremities: Yes: WNL Neuro: CN appear intact, no facial droop, difficult to assess dysarthria, moving extremities grossly but not participating in confrontation testing, sensory intact CBCD WBC 12.3 K/mm3 (4.0-10.0) H 05/14/17 07:00 RBC 2.88 M/mm3 (4.00-5.60) L 05/14/17 07:00 Hgb 10.1 GM/dL (11.7-16.9) L 05/14/17 07:00 Hct 30.4 % (35.4-49) L 05/14/17 07:00 MCV 105.7 fl (80-96) H 05/14/17 07:00 MCHC 33.1 g/dl (32.0-35.9) 05/14/17 07:00 RDW 17.0 % (11.9-15.9) H 05/14/17 07:00 Plt Count 171 K/MM3 (134-434) 05/14/17 07:00 MPV 8.5 fl (7.5-11.1) 05/14/17 07:00 CMP Sodium 136 mmol/L (136-145) 05/14/17 07:00 Potassium 4.5 mmol/L (3.5-5.1) 05/14/17 07:00 Chloride 93 mmol/L (98-107) L 05/14/17 07:00 Carbon Dioxide 38 mmol/L (21-32) H 05/14/17 07:00 Anion Gap 5 (8-16) L 05/14/17 07:00 BUN 33 mg/dL (7-18) H D 05/14/17 07:00 Creatinine 1.1 mg/dL (0.7-1.3) D 05/14/17 07:00 Creat Clearance w eGFR > 60 (>60) 05/13/17 06:20 Calcium 9.1 mg/dL (8.5-10.1) 05/14/17 07:00 Total Bilirubin 0.6 mg/dL (0.2-1.0) D 05/13/17 06:20 AST 27 U/L (15-37) D 05/13/17 06:20 ALT 13 U/L (12-78) 05/13/17 06:20 Alkaline Phosphatase 43 U/L (45-117) L 05/13/17 06:20 Total Protein 5.8 g/dl (6.4-8.2) L 05/13/17 06:20 Albumin 2.8 g/dl (3.4-5.0) L 05/13/17 06:20 Imaging - Results Chest X-ray: Report Reviewed, Image Reviewed CT head ordered Plan: 86 year old male who presented with shortness of breath and weakness that had been progressive over several days with decreased exercise tolerance and evolving to shortness of breath at rest. He has been getting treatment for PNA and admitted for further treatment. Neurologically, I was consulted for altered mental status. At bedside, he is awake and alert but minimally responsive, but not following commands. He is fatigued appearing and with heavy breaths despite facemask. When questioned, would not answer and would not participate in confrontation testing. He has not had imaging of his brain and therefore I ordered CT head. Mental status may be secondary to ongoing respiratory dyfunction/PNA. Would recommend continuation of treatment for infection, on Vanco. Will d/c gabapentin in the event this is causing mental status change but is less likely cause Atrial Fib rate controlled, continue pradaxa On Lasix for HTN Monitor Blood pressure, avoid episodes of HTN or hypotension Monitor lytes/labs for toxic metabolic derangements Will follow
[2017-05-14 22:25] LABS: ARTERIAL BLD GAS O2 SATURATION 91.9 % (90-98.9); ARTERIAL BLOOD GAS HCO3 35.4 meq/L (22-26); ARTERIAL BLOOD GAS PO2 62.6 mmHg (68-100)
[2017-05-14 22:26] LABS: ALLENS TEST POSITIVE; ART PUNCT SITE LEFT BRACHIAL; LPM/O2% 2LPM; PT. ON O2? YES
[2017-05-14 22:27] LABS: TYPE OF O2 N/C
[2017-05-14] MEDS: DULoxetine HCL 30 MG CAPSULE.DR (FP) PO SCH (22:27)
[2017-05-14] MEDS: DOCUSATE SODIUM 100 MG CAPSULE (FP) PO SCH (22:27)
[2017-05-14] MEDS: ATORVASTATIN CA 10 MG TABLET (FP) PO SCH (22:28)
[2017-05-14] MEDS: ASCORBIC ACID 500 MG TABLET (FP) PO SCH (22:29)
[2017-05-14] MEDS ORDERED: methylPREDNISolone NA SUCC 125 MG/2 ML VIAL ONE (23:26)
[2017-05-14] MEDS ORDERED: methylPREDNISolone NA SUCC 125 MG/2 ML VIAL IVPB ONE (23:45)
[2017-05-15] MEDS: SODIUM CHLORIDE 1,000 ML IV SCH ×2 (01:57)
[2017-05-15] MEDS: LEVOTHYROXINE NA 50 MCG TABLET (FP) PO SCH (06:03)
[2017-05-15] MEDS: ALBUTEROL SO4 2.5/IPRATROPIUM 0.5 INH SOL 3 ML VIAL.NEB. NEB SCH ×3 (06:50→22:30)
[2017-05-15 06:59] LABS: BASOPHIL 0.4 % (0-2.0); MCH 35.2 pg (25.7-33.7); MCHC 33.4 g/dl (32.0-35.9); MEAN CELL VOLUME 105.5 fl (80-96); MEAN PLT VOLUME 9.5 fl (7.5-11.1); NEUTROPHILS 96.3 % (42.8-82.8); PLATELET COUNT 148 K/MM3 (134-434); WHITE BLOOD COUNT 18.5 K/mm3 (4.0-10.0)
[2017-05-15 07:51] LABS: ANION GAP 5 (8-16); CALCIUM 9.5 mg/dL (8.5-10.1); CO2 37 mmol/L (21-32); CREATININE 1.2 mg/dL (0.7-1.3); GLUCOSE,RANDOM 144 mg/dL (74-106); MAGNESIUM 2.6 mg/dL (1.8-2.4); PHOSPHOROUS 4.1 mg/dL (2.5-4.9)
[2017-05-15] MEDS ORDERED: PT OWN MED DRAWER 7, Y5N ONE ×2 (08:54→22:06)
[2017-05-15] MEDS: ERTAPENEM SODIUM 1 GM in SODIUM CHLORIDE 50 ML IVPB SCH (08:59)
[2017-05-15] MEDS: TAMSULOSIN HCL 0.4 MG CAP.ER.24H (FP) PO SCH (09:06)
[2017-05-15] MEDS: DABIGATRAN ETEXILATE MESYLATE 150 MG CAPSULE PO SCH ×2 (09:07→21:27)
[2017-05-15] MEDS: TIOTROPIUM BROMIDE 18 MCG/INH (DEVICE W/ 5 CAPSULES) IH SCH (09:07)
[2017-05-15] MEDS: SENNOSIDES 8.6MG TABLET (FP) PO SCH (09:07)
[2017-05-15] MEDS: FENOFIBRIC ACID 135 MG CAP PO SCH (09:07)
[2017-05-15] MEDS: CHOLECALCIFEROL (VITAMIN D3) 1,000 UNIT TABLET (FP) PO SCH (09:07)
[2017-05-15] MEDS: LACTOBACILLUS ACIDOPHILUS 1 EACH TAB (FP) PO SCH (09:07)
[2017-05-15] MEDS: FLUTICASONE PROP 0.05% 16 GM NASAL SPRAY NS SCH (09:07)
[2017-05-15] MEDS: FERROUS SULFATE PO SCH ×2 (09:07→21:27)
[2017-05-15] MEDS: METOPROLOL TARTRATE 25 MG TABLET (FP) PO SCH ×2 (09:07→21:59)
[2017-05-15] MEDS: RANITIDINE HCL 150 MG TABLET (FP) PO SCH ×2 (09:08→21:27)
[2017-05-15] MEDS ORDERED: methylPREDNISolone NA SUCC 40 MG/1 ML VIAL IVPB SCH (10:00)
--- NOTE | 2017-05-15 10:03 | PN ---
Progress Note (short form) - Note Progress Note: Neurology 86 year old male who presented with shortness of breath and weakness that had been progressive over several days with decreased exercise tolerance and evolving to shortness of breath at rest. He has been getting treatment for PNA and admitted for further treatment. Neurologically, I was consulted for altered mental status. At bedside, he is awake and alert and responsive, but not following commands. He is fatigued appearing and with heavy breaths despite facemask. When questioned, would not answer and would not participate in confrontation testing. CT head completed and did not show acute changes. 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 Active Medications Acetaminophen (Tylenol -) 650 mg PO Q6H PRN PRN Reason: FEVER OR PAIN Al Hydroxide/Mg Hydroxide (Mylanta Oral Suspension -) 30 ml PO Q6H PRN PRN Reason: INDIGESTION Last Admin: 05/13/17 13:00 Dose: 30 ml Albuterol/Ipratropium (Duoneb -) 1 amp NEB TIDR [facility] Last Admin: 05/15/17 06:50 Dose: 1 amp Ascorbic Acid (Vitamin C -) 500 mg PO HS [facility] Last Admin: 05/14/17 22:29 Dose: Not Given Atorvastatin Calcium (Lipitor -) 10 mg PO HS [facility] Last Admin: 05/14/17 22:28 Dose: Not Given Brimonidine Tartrate (Alphagan 0.15% -) 1 drop OD BID [facility] Last Admin: 05/14/17 22:33 Dose: 1 drop Cholecalciferol (Vitamin D3 -) 1,000 unit PO DAILY [facility] Last Admin: 05/15/17 09:07 Dose: Not Given Dabigatran (Pradaxa -) 150 mg PO BID [facility] Last Admin: 05/15/17 09:07 Dose: Not Given Docusate Sodium (Colace -) 200 mg PO HS [facility] Last Admin: 05/14/17 22:27 Dose: Not Given Duloxetine HCl (Cymbalta -) 60 mg PO HS [facility] Last Admin: 05/14/17 22:27 Dose: Not Given Fenofibric Acid (Trilipix -) 135 mg PO DAILY [facility] Last Admin: 05/15/17 09:07 Dose: Not Given Fluticasone Propionate (Flonase -) 2 spray NS DAILY [facility] Last Admin: 05/15/17 09:07 Dose: Not Given Gabapentin (Neurontin -) 600 mg PO BID [facility] Last Admin: 05/14/17 10:23 Dose: 600 mg Ertapenem 1 gm/ Sodium (Chloride) 50 mls @ 50 mls/hr IVPB DAILY [facility] PRN Reason: Protocol Last Admin: 05/15/17 08:59 Dose: 50 mls/hr Vancomycin HCl 1,250 mg/ (Sodium Chloride) 250 mls @ 250 mls/hr IVPB DAILY [facility] PRN Reason: Protocol Last Admin: 05/14/17 10:26 Dose: Not Given Sodium Chloride (Normal Saline -) 1,000 mls @ 42 mls/hr IV ASDIR [facility] Last Admin: 05/15/17 01:57 Dose: Not Given Sodium Chloride (Normal Saline -) 1,000 mls @ 50 mls/hr IV ASDIR [facility] Last Admin: 05/15/17 00:00 Dose: 50 mls/hr Lactobacillus Acidophilus (Bacid -) 1 tab PO DAILY [facility] Last Admin: 05/15/17 09:07 Dose: Not Given Levothyroxine Sodium (Synthroid -) 50 mcg PO DAILY@0700 [facility] Last Admin: 05/15/17 06:03 Dose: 50 mcg Methylprednisolone Sodium Succinate (Solu-Medrol -) 80 mg IVPB BID [facility] Last Admin: 05/15/17 09:00 Dose: 80 mg Metoprolol Tartrate (Lopressor -) 12.5 mg PO BID [facility] Last Admin: 05/15/17 09:07 Dose: Not Given Slow Release Ferrous Sulfate (45mg Elemental Feso4) 1 each PO BID [facility] Last Admin: 05/15/17 09:07 Dose: Not Given Ranitidine HCl (Zantac -) 150 mg PO BID [facility] Last Admin: 05/15/17 09:08 Dose: Not Given Senna (Senna -) 2 tab PO DAILY [facility] Last Admin: 05/15/17 09:07 Dose: Not Given Tamsulosin HCl (Flomax -) 0.4 mg PO DAILY@0830 [facility] Last Admin: 05/15/17 09:06 Dose: Not Given Tiotropium Ririe (Spiriva -) 1 puff IH DAILY [facility] Last Admin: 05/15/17 09:07 Dose: Not Given Physical Examination Vital Signs Temperature 98.1 F 05/15/17 06:00 Pulse Rate 88 05/15/17 06:00 Respiratory Rate 20 05/15/17 06:00 Blood Pressure 126/69 05/15/17 06:00 O2 Sat by Pulse Oximetry (%) 96 05/14/17 22:00 Constitutional: Yes: Well Nourished, No Distress, Calm Eyes: Yes: Conjunctiva Clear, EOM Intact, PERRL Cardiovascular: Yes: Regular Rate and Rhythm. No: Gallop, Murmur, Rub Respiratory: Yes: Regular, CTA Bilaterally. No: Rales, Rhonchi, Wheezes Gastrointestinal: Yes: Normal Bowel Sounds, Soft. No: Distention, Tenderness Extremities: Yes: WNL Neuro: CN appear intact, no facial droop, difficult to assess dysarthria, moving extremities grossly but not participating in confrontation testing, sensory intact CBCD WBC 18.5 K/mm3 (4.0-10.0) H D 05/15/17 05:49 RBC 2.96 M/mm3 (4.00-5.60) L 05/15/17 05:49 Hgb 10.4 GM/dL (11.7-16.9) L 05/15/17 05:49 Hct 31.2 % (35.4-49) L 05/15/17 05:49 MCV 105.5 fl (80-96) H 05/15/17 05:49 MCHC 33.4 g/dl (32.0-35.9) 05/15/17 05:49 RDW 17.0 % (11.9-15.9) H 05/15/17 05:49 Plt Count 148 K/MM3 (134-434) 05/15/17 05:49 MPV 9.5 fl (7.5-11.1) D 05/15/17 05:49 CMP Sodium 137 mmol/L (136-145) 05/15/17 05:49 Potassium 5.1 mmol/L (3.5-5.1) 05/15/17 05:49 Chloride 95 mmol/L (98-107) L 05/15/17 05:49 Carbon Dioxide 37 mmol/L (21-32) H 05/15/17 05:49 Anion Gap 5 (8-16) L 05/15/17 05:49 BUN 43 mg/dL (7-18) H D 05/15/17 05:49 Creatinine 1.2 mg/dL (0.7-1.3) 05/15/17 05:49 Creat Clearance w eGFR > 60 (>60) 05/13/17 06:20 Calcium 9.5 mg/dL (8.5-10.1) 05/15/17 05:49 Total Bilirubin 0.6 mg/dL (0.2-1.0) D 05/13/17 06:20 AST 27 U/L (15-37) D 05/13/17 06:20 ALT 13 U/L (12-78) 05/13/17 06:20 Alkaline Phosphatase 43 U/L (45-117) L 05/13/17 06:20 Total Protein 5.8 g/dl (6.4-8.2) L 05/13/17 06:20 Albumin 2.8 g/dl (3.4-5.0) L 05/13/17 06:20 Imaging - Results Chest X-ray: Report Reviewed, Image Reviewed CT head reviewed Plan: 86 year old male who presented with shortness of breath and weakness that had been progressive over several days with decreased exercise tolerance and evolving to shortness of breath at rest. He has been getting treatment for PNA and admitted for further treatment. Neurologically, I was consulted for altered mental status. At bedside, he is awake and alert but minimally responsive, but not following commands. He is fatigued appearing and with heavy breaths despite facemask. When questioned, would not answer and would not participate in confrontation testing. CT head reviewed. Mental status may be secondary to ongoing respiratory dyfunction/PNA. Would recommend continuation of treatment for infection, on Vanco. D/Patrice Gabapentin for now Atrial Fib rate controlled, continue pradaxa On Lasix for HTN Monitor Blood pressure, avoid episodes of HTN or hypotension Monitor lytes/labs for toxic metabolic derangements Will follow
[2017-05-15] MEDS: BRIMONIDINE TARTRATE 0.15% OPHTHALMIC 5 ML BOTTLE OD SCH ×2 (10:29→22:09)
[2017-05-15] MEDS: VANCOMYCIN 1,250 MG in SODIUM CHLORIDE 250 ML IVPB SCH (10:40)
--- NOTE | 2017-05-15 10:59 | CONSULT ---
Admitting History and Physical - Primary Care Physician PCP: Jose Chaney - Admission History of Present Illness: 86 yo gentleman, admitted with SOB, developed lethargy, with possible RLL infiltrate, r/o aspiration PNA. Selected Entries 05/12/17 05/12/17 05/12/17 09:25 14:02 21:11 Breakfast 75% Lunch 75% 75% Supper Temperature 05/12/17 05/13/17 05/13/17 23:17 01:00 06:00 Breakfast Lunch Supper 50% Temperature 97.6 F 97.8 F 05/13/17 05/13/17 05/13/17 10:00 11:25 14:36 Breakfast 50% Lunch 50% Supper Temperature 98.5 F 98.2 F 05/13/17 05/13/17 05/13/17 17:45 21:00 22:32 Breakfast Lunch Supper 50% Temperature 98 F 97.6 F 05/14/17 05/14/17 05/14/17 05:00 09:00 09:50 Breakfast 25% Lunch Supper Temperature 97.9 F 98.7 F 05/14/17 05/14/17 05/14/17 13:23 18:00 22:00 Breakfast Lunch 25% Supper 50% Temperature 98.3 F 98.9 F 05/15/17 05/15/17 01:34 06:00 Breakfast Lunch Supper Temperature 98.5 F 98.1 F Laboratory Tests 05/11/17 05/12/17 05/13/17 06:00 06:00 06:20 WBC 23.0 H D 13.1 H D 14.6 H 05/14/17 05/15/17 07:00 05:49 WBC 12.3 H 18.5 H D Mr. Rivas has a longstanding h/o dysphagia. Repeated MBS revealed stasis in the pharynx with puree and solids. Food was tolerated best with extensive chewing and alternating solids with liquids to clear hangup. Some hangup was also noted in the esophagus with improved clearance with liquid wash down.Pt had 3 mbs's, last MBS 2014. There was aspiration on previous MBS. 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: Peripheral Neuropathy Cardiovascular: Yes: AFIB, CAD, CHF, HTN, Hyperlipdemia Pulmonary: Yes: Pneumonia Gastrointestinal: Yes: Diverticulosis, GI Bleed, Hemorrhoids, Hiatal Hernia Renal/: Yes: Renal Inusuff Infectious Disease: Yes: Other (previous sepsis) Musculoskeletal: Yes: Osteoarthritis, Other (right foot drop) ENT: Yes: Other (cant swallow even sips of H2O) Dermatology: Yes: Basal Cell (face), Other (Left alevism with local extension and hematoma) - Past Surgical History Past Surgical History: Yes: Bypass (left fem-pop), CABG (x3 2004), Cholecystectomy, Joint Replacement (bilateral knees), Orchiectomy (unilateral for testicular injury at 18yrs of age) - Smoking History Smoking history: Former smoker Have you smoked in the past 12 months: No Aproximately how many cigarettes per day: 0 If you are a former smoker, when did you quit?: 1983 - Alcohol/Substance Use Hx Alcohol Use: No History of Substance Use: reports: None - Social History ADL: Support Services (In [place] post) 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 Longstanding h/o dysphagia. - Dysphagia Impressions/Plan Dysphagia Impressions: Ongoing Evaluation *Silent aspiration: cannot be R/O at bedside Recommendations: Modified Barium Swallow (if alert and stable) - Recommendations Diet Consistency: NPO, Other (If becomes sufficiently arousable today, trial of puree/nectar thick liquid on a tsp. Monitor tolerance.)
--- NOTE | 2017-05-15 11:02 | PN ---
Progress Note (short form) - Note Progress Note: s: sob better with o2, no cp palps dizzy o: Vital Signs Period Temp Pulse Resp BP Sys/Mitchell Pulse Ox Last 24 Hr 98.1 F-98.9 F 72-92 20-22 93-126/51-69 96-100 nad no jvd irreg, s1s2 no mrg cta bl nl eff aaox3 no le e/c/c abd nt nd pos bs no jaundice diaphoresis Current Medications Generic Name Dose Route Start Last Admin Trade Name Freq PRN Reason Stop Dose Admin Acetaminophen 650 mg 05/08/17 18:51 Tylenol - PO Q6H PRN FEVER OR PAIN Al Hydroxide/Mg Hydroxide 30 ml 05/13/17 12:50 05/13/17 13:00 Mylanta Oral Suspension - PO 30 ml Q6H PRN Administration INDIGESTION Albuterol/Ipratropium 1 amp 05/11/17 22:00 05/15/17 06:50 Duoneb - NEB 1 amp TIDR [facility] Administration Ascorbic Acid 500 mg 05/08/17 22:00 05/14/17 22:29 Vitamin C - PO Not Given HS [facility] Atorvastatin Calcium 10 mg 05/08/17 22:00 05/14/17 22:28 Lipitor - PO Not Given HS [facility] Brimonidine Tartrate 1 drop 05/08/17 22:00 05/15/17 10:29 Alphagan 0.15% - OD Not Given BID [facility] Cholecalciferol 1,000 unit 05/09/17 10:00 05/15/17 09:07 Vitamin D3 - PO Not Given DAILY [facility] Dabigatran 150 mg 05/08/17 22:00 05/15/17 09:07 Pradaxa - PO Not Given BID [facility] Docusate Sodium 200 mg 05/08/17 22:00 05/14/17 22:27 Colace - PO Not Given HS [facility] Duloxetine HCl 60 mg 05/08/17 22:00 05/14/17 22:27 Cymbalta - PO Not Given HS [facility] Fenofibric Acid 135 mg 05/09/17 10:00 05/15/17 09:07 Trilipix - PO Not Given DAILY [facility] Fluticasone Propionate 2 spray 05/09/17 10:00 05/15/17 09:07 Flonase - NS Not Given DAILY [facility] Gabapentin 600 mg 05/08/17 22:00 05/14/17 10:23 Neurontin - PO 600 mg BID [facility] Administration Ertapenem 1 gm/ Sodium 50 mls @ 50 mls/hr 05/11/17 15:15 05/15/17 08:59 Chloride IVPB 50 mls/hr DAILY [facility] Administration Protocol Vancomycin HCl 1,250 mg/ 250 mls @ 250 mls/hr 05/12/17 10:00 05/15/17 10:40 Sodium Chloride IVPB Not Given DAILY [facility] Protocol Sodium Chloride 1,000 mls @ 42 mls/hr 05/14/17 23:45 05/15/17 01:57 Normal Saline - IV Not Given ASDIR [facility] Sodium Chloride 1,000 mls @ 50 mls/hr 05/15/17 02:00 05/15/17 00:00 Normal Saline - IV 50 mls/hr ASDIR [facility] Administration Lactobacillus Acidophilus 1 tab 05/10/17 11:00 05/15/17 09:07 Bacid - PO Not Given DAILY [facility] Levothyroxine Sodium 50 mcg 05/09/17 07:00 05/15/17 06:03 Synthroid - PO 50 mcg DAILY@0700 [facility] Administration Methylprednisolone Sodium Succinate 80 mg 05/15/17 10:00 05/15/17 09:00 Solu-Medrol - IVPB 80 mg BID [facility] Administration Metoprolol Tartrate 12.5 mg 05/14/17 22:00 05/15/17 09:07 Lopressor - PO Not Given BID [facility] Slow Release Ferrous 1 each 05/10/17 22:00 05/15/17 09:07 Sulfate (45mg PO Not Given Elemental Feso4) BID [facility] Ranitidine HCl 150 mg 05/08/17 22:00 05/15/17 09:08 Zantac - PO Not Given BID [facility] Senna 2 tab 05/09/17 10:00 05/15/17 09:07 Senna - PO Not Given DAILY [facility] Tamsulosin HCl 0.4 mg 05/15/17 08:30 05/15/17 09:06 Flomax - PO Not Given DAILY@0830 [facility] Tiotropium Walsh 1 puff 05/09/17 13:00 05/15/17 09:07 Spiriva - IH Not Given DAILY [facility] CBC, BMP 05/15/17 05:49 09/13/17 05:49 ecg 05/09/17: afib, rate controlled, nl qtc, no ischemic changes, rbbb echo 01/2015: mild dec lvef, ant/septal HK, nl rv size, mild bi-atrial dil, mild tr, rvsp 40-50 echo 10/2016: low nl lvef, nl lv size, nl rv, mild elena, mild mr/tr, rvsp 40-50 mibi 10/2016: no ischemia a/p: 86 Y/O Gentleman with a PMhx that includes CKD, CAD s/p pci to rca 2004 ( patent on cath 2006), PVD s/p le bypass/stents/amputations, HTN, Afib on AC, here with sob, weakness. fatigue, sob: -bnp very high, but outpt lasix has not improved his sxs and here with no signs of vol overload so does not seem that chf causing his sxs -? PNA: patchy LLL infiltrate on CXR, hi CRP. being tx'd with abx, steroids by pulm and ID afib: -cont pradaxa (tolerating this for several years) -rate controlled, cont low dose bb cad s/p remote pci: -stable -no signs acs -cont AC, statin. has been off bb/acei due to low bp as outpt, but started BB here for AF chronic diastolic chf: -bnp 23K (baseline 8-10K) -05/13: has been on lasix 40 po daily, wts ranging 151-157 here, suspect JVD on exam though he is asymptomatic. cxr 05/12 with mild incr interstl markings ? mild chf. given lasix 40mg IVP x 1 - 05/14: bp drop after lasix. today bicarb up to 38 and lethargic (baseline unknown to me). Would hold po lasix tomorrow, monitor for when to resume. K 4.5 , mg 2.5. can stop standing repletion. -05/15: no signs vol overload, cont to hold home lasix until cr back to baseline htn: -labile here, currently running low. hld: -cont home statin anemia: -chronic, counts stable here
--- NOTE | 2017-05-15 11:05 | PN ---
Progress Note, Physician Chief Complaint: Mr Rivas is arousable to touch but not voice. Non-verbal today. - Current Medication List Current Medications: Active Medications Acetaminophen (Tylenol -) 650 mg PO Q6H PRN PRN Reason: FEVER OR PAIN Al Hydroxide/Mg Hydroxide (Mylanta Oral Suspension -) 30 ml PO Q6H PRN PRN Reason: INDIGESTION Last Admin: 05/13/17 13:00 Dose: 30 ml Albuterol/Ipratropium (Duoneb -) 1 amp NEB TIDR [facility] Last Admin: 05/15/17 06:50 Dose: 1 amp Ascorbic Acid (Vitamin C -) 500 mg PO HS [facility] Last Admin: 05/14/17 22:29 Dose: Not Given Atorvastatin Calcium (Lipitor -) 10 mg PO HS [facility] Last Admin: 05/14/17 22:28 Dose: Not Given Brimonidine Tartrate (Alphagan 0.15% -) 1 drop OD BID [facility] Last Admin: 05/15/17 10:29 Dose: Not Given Cholecalciferol (Vitamin D3 -) 1,000 unit PO DAILY [facility] Last Admin: 05/15/17 09:07 Dose: Not Given Dabigatran (Pradaxa -) 150 mg PO BID [facility] Last Admin: 05/15/17 09:07 Dose: Not Given Docusate Sodium (Colace -) 200 mg PO HS [facility] Last Admin: 05/14/17 22:27 Dose: Not Given Duloxetine HCl (Cymbalta -) 60 mg PO HS [facility] Last Admin: 05/14/17 22:27 Dose: Not Given Fenofibric Acid (Trilipix -) 135 mg PO DAILY [facility] Last Admin: 05/15/17 09:07 Dose: Not Given Fluticasone Propionate (Flonase -) 2 spray NS DAILY [facility] Last Admin: 05/15/17 09:07 Dose: Not Given Gabapentin (Neurontin -) 600 mg PO BID [facility] Last Admin: 05/14/17 10:23 Dose: 600 mg Ertapenem 1 gm/ Sodium (Chloride) 50 mls @ 50 mls/hr IVPB DAILY [facility] PRN Reason: Protocol Last Admin: 05/15/17 08:59 Dose: 50 mls/hr Vancomycin HCl 1,250 mg/ (Sodium Chloride) 250 mls @ 250 mls/hr IVPB DAILY [facility] PRN Reason: Protocol Last Admin: 05/15/17 10:40 Dose: Not Given Sodium Chloride (Normal Saline -) 1,000 mls @ 42 mls/hr IV ASDIR [facility] Last Admin: 05/15/17 01:57 Dose: Not Given Sodium Chloride (Normal Saline -) 1,000 mls @ 50 mls/hr IV ASDIR [facility] Last Admin: 05/15/17 00:00 Dose: 50 mls/hr Lactobacillus Acidophilus (Bacid -) 1 tab PO DAILY [facility] Last Admin: 05/15/17 09:07 Dose: Not Given Levothyroxine Sodium (Synthroid -) 50 mcg PO DAILY@0700 [facility] Last Admin: 05/15/17 06:03 Dose: 50 mcg Methylprednisolone Sodium Succinate (Solu-Medrol -) 80 mg IVPB BID [facility] Last Admin: 05/15/17 09:00 Dose: 80 mg Metoprolol Tartrate (Lopressor -) 12.5 mg PO BID [facility] Last Admin: 05/15/17 09:07 Dose: Not Given Slow Release Ferrous Sulfate (45mg Elemental Feso4) 1 each PO BID [facility] Last Admin: 05/15/17 09:07 Dose: Not Given Ranitidine HCl (Zantac -) 150 mg PO BID [facility] Last Admin: 05/15/17 09:08 Dose: Not Given Senna (Senna -) 2 tab PO DAILY [facility] Last Admin: 05/15/17 09:07 Dose: Not Given Tamsulosin HCl (Flomax -) 0.4 mg PO DAILY@0830 [facility] Last Admin: 05/15/17 09:06 Dose: Not Given Tiotropium [place] (Spiriva -) 1 puff IH DAILY [facility] Last Admin: 05/15/17 09:07 Dose: Not Given - Objective Vital Signs: Vital Signs Temperature 36.7 C 05/15/17 06:00 Pulse Rate 88 05/15/17 06:00 Respiratory Rate 20 05/15/17 06:00 Blood Pressure 126/69 05/15/17 06:00 O2 Sat by Pulse Oximetry (%) 100 05/15/17 09:00 Constitutional: Yes: Other (lethargic) Cardiovascular: Yes: Regular Rate and Rhythm. No: Gallop, Murmur, Rub Respiratory: Yes: Regular, CTA Bilaterally, Other (anterior secondary to lethargy). No: Rales, Rhonchi, Wheezes Gastrointestinal: Yes: Normal Bowel Sounds, Soft. No: Distention, Tenderness Extremities: Yes: WNL Edema: No Labs: CBC, BMP 05/15/17 05:49 05/15/17 05:49 Problem List - Problems (1) Pneumonia Code(s): J18.9 - PNEUMONIA, UNSPECIFIED ORGANISM Qualifiers: Laterality: right Lung location: lower lobe of lung (2) Alkalosis, metabolic Code(s): E87.3 - ALKALOSIS (3) Atrial fibrillation Code(s): I48.91 - UNSPECIFIED ATRIAL FIBRILLATION Qualifiers: Atrial fibrillation type: chronic Qualified Code(s): I48.2 - Chronic atrial fibrillation (4) CHF (congestive heart failure) Code(s): I50.9 - HEART FAILURE, UNSPECIFIED Qualifiers: Congestive heart failure type: unspecified congestive heart failure type Congestive heart failure chronicity: chronic Qualified Code(s): I50.9 - Heart failure, unspecified (5) GERD (gastroesophageal reflux disease) Code(s): K21.9 - GASTRO-ESOPHAGEAL REFLUX DISEASE WITHOUT ESOPHAGITIS (6) HTN (hypertension) Code(s): I10 - ESSENTIAL (PRIMARY) HYPERTENSION (7) Hyperlipemia Code(s): E78.5 - HYPERLIPIDEMIA, UNSPECIFIED (8) Hypothyroidism Code(s): E03.9 - HYPOTHYROIDISM, UNSPECIFIED (9) PVD (peripheral vascular disease) Code(s): I73.9 - PERIPHERAL VASCULAR DISEASE, UNSPECIFIED Assessment/Plan (1) Community acquired pneumonia Assessment/Plan: -leukocytosis worsening -chest x-ray noted with increase infiltrate on R side -? aspiration -speech therapy consult -continue broad spectrum antibiotics per ID (2) Alkalosis, metabolic Assessment/Plan: -compensated chronic respiratory alkalosis -suspect underlying COPD considering smoking history -will need outpatient PFTs and pulmonary follow up Code(s): E87.3 - ALKALOSIS (3) Atrial fibrillation Assessment/Plan: -controlled -continue pradaxa Code(s): I48.91 - UNSPECIFIED ATRIAL FIBRILLATION Qualifiers: Atrial fibrillation type: chronic Qualified Code(s): I48.2 - Chronic atrial fibrillation (4) CHF (congestive heart failure) Assessment/Plan: -ECHO reviewed and cardiology following -not in exacerbation -continue oral lasix Code(s): I50.9 - HEART FAILURE, UNSPECIFIED Qualifiers: Congestive heart failure type: unspecified congestive heart failure type Congestive heart failure chronicity: chronic Qualified Code(s): I50.9 - Heart failure, unspecified (5) GERD (gastroesophageal reflux disease) Assessment/Plan: -continue zantac Code(s): K21.9 - GASTRO-ESOPHAGEAL REFLUX DISEASE WITHOUT ESOPHAGITIS (6) HTN (hypertension) Assessment/Plan: -controlled -continue lasix Code(s): I10 - ESSENTIAL (PRIMARY) HYPERTENSION (7) Hyperlipemia Assessment/Plan: -continue fenofibrate and lipitor Code(s): E78.5 - HYPERLIPIDEMIA, UNSPECIFIED (8) Hypothyroidism Assessment/Plan: -continue synthroid Code(s): E03.9 - HYPOTHYROIDISM, UNSPECIFIED (9) PVD (peripheral vascular disease) Assessment/Plan: -on pradaxa -does not complain of claudication Code(s): I73.9 - PERIPHERAL VASCULAR DISEASE, UNSPECIFIED (10) Urinary retention -continue flomax (11) Metabolic encephalopathy -neurology consulted and note reviewed -head CT followed up -suspect secondary to pneumonia -continue management as above
--- NOTE | 2017-05-15 12:56 | PN ---
Progress Note, Physician History of Present Illness: pulmonary arousable,-resp distress - Current Medication List Current Medications: Active Medications Acetaminophen (Tylenol -) 650 mg PO Q6H PRN PRN Reason: FEVER OR PAIN Al Hydroxide/Mg Hydroxide (Mylanta Oral Suspension -) 30 ml PO Q6H PRN PRN Reason: INDIGESTION Last Admin: 05/13/17 13:00 Dose: 30 ml Albuterol/Ipratropium (Duoneb -) 1 amp NEB TIDR [facility] Last Admin: 05/15/17 06:50 Dose: 1 amp Ascorbic Acid (Vitamin C -) 500 mg PO HS [facility] Last Admin: 05/14/17 22:29 Dose: Not Given Atorvastatin Calcium (Lipitor -) 10 mg PO HS [facility] Last Admin: 05/14/17 22:28 Dose: Not Given Brimonidine Tartrate (Alphagan 0.15% -) 1 drop OD BID [facility] Last Admin: 05/15/17 10:29 Dose: Not Given Cholecalciferol (Vitamin D3 -) 1,000 unit PO DAILY [facility] Last Admin: 05/15/17 09:07 Dose: Not Given Dabigatran (Pradaxa -) 150 mg PO BID [facility] Last Admin: 05/15/17 09:07 Dose: Not Given Docusate Sodium (Colace -) 200 mg PO [facility] Last Admin: 05/14/17 22:27 Dose: Not Given Duloxetine HCl (Cymbalta -) 60 mg PO HS [facility] Last Admin: 05/14/17 22:27 Dose: Not Given Fenofibric Acid (Trilipix -) 135 mg PO DAILY [facility] Last Admin: 05/15/17 09:07 Dose: Not Given Fluticasone Propionate (Flonase -) 2 spray NS DAILY [facility] Last Admin: 05/15/17 09:07 Dose: Not Given Gabapentin (Neurontin -) 600 mg PO BID [facility] Last Admin: 05/14/17 10:23 Dose: 600 mg Ertapenem 1 gm/ Sodium (Chloride) 50 mls @ 50 mls/hr IVPB DAILY [facility] PRN Reason: Protocol Last Admin: 05/15/17 08:59 Dose: 50 mls/hr Vancomycin HCl 1,250 mg/ (Sodium Chloride) 250 mls @ 250 mls/hr IVPB DAILY [facility] PRN Reason: Protocol Last Admin: 05/15/17 10:40 Dose: Not Given Sodium Chloride (Normal Saline -) 1,000 mls @ 42 mls/hr IV ASDIR [facility] Last Admin: 05/15/17 01:57 Dose: Not Given Sodium Chloride (Normal Saline -) 1,000 mls @ 50 mls/hr IV ASDIR [facility] Last Admin: 05/15/17 00:00 Dose: 50 mls/hr Lactobacillus Acidophilus (Bacid -) 1 tab PO DAILY [facility] Last Admin: 05/15/17 09:07 Dose: Not Given Levothyroxine Sodium (Synthroid -) 50 mcg PO DAILY@0700 [facility] Last Admin: 05/15/17 06:03 Dose: 50 mcg Methylprednisolone Sodium Succinate (Solu-Medrol -) 80 mg IVPB BID [facility] Last Admin: 05/15/17 09:00 Dose: 80 mg Metoprolol Tartrate (Lopressor -) 12.5 mg PO BID [facility] Last Admin: 05/15/17 09:07 Dose: Not Given Slow Release Ferrous Sulfate (45mg Elemental Feso4) 1 each PO BID [facility] Last Admin: 05/15/17 09:07 Dose: Not Given Ranitidine HCl (Zantac -) 150 mg PO BID [facility] Last Admin: 05/15/17 09:08 Dose: Not Given Senna (Senna -) 2 tab PO DAILY [facility] Last Admin: 05/15/17 09:07 Dose: Not Given Tamsulosin HCl (Flomax -) 0.4 mg PO DAILY@0830 [facility] Last Admin: 05/15/17 09:06 Dose: Not Given Tiotropium [place] (Spiriva -) 1 puff IH DAILY [facility] Last Admin: 05/15/17 09:07 Dose: Not Given - Objective Vital Signs: Vital Signs Temperature 97.0 F L 05/15/17 10:00 Pulse Rate 94 H 05/15/17 10:00 Respiratory Rate 20 05/15/17 10:00 Blood Pressure 112/59 05/15/17 10:00 O2 Sat by Pulse Oximetry (%) 100 05/15/17 09:00 Constitutional: Yes: Other (l) Eyes: Yes: WNL HENT: Yes: WNL Neck: Yes: WNL Cardiovascular: Yes: Pulse Irregular, S1, S2 Respiratory: Yes: Diminished (poor inspiratory effort) Gastrointestinal: Yes: Normal Bowel Sounds, Soft Extremities: Yes: WNL Edema: No Labs: CBC, BMP 05/15/17 05:49 05/15/17 05:49 Assessment/Plan Problem List - Problems (1) Shortness of breath Code(s): R06.02 - SHORTNESS OF BREATH (2) Atrial fibrillation Code(s): I48.91 - UNSPECIFIED ATRIAL FIBRILLATION (3) CHF (congestive heart failure) Code(s): I50.9 - HEART FAILURE, UNSPECIFIED (4) HTN (hypertension) Code(s): I10 - ESSENTIAL (PRIMARY) HYPERTENSION (5) Malignant neoplasm of skin of yarsani Code(s): C44.309 - UNSP MALIGNANT NEOPLASM OF SKIN OF OTHER PARTS OF FACE (6) PVD (peripheral vascular disease) Code(s): I73.9 - PERIPHERAL VASCULAR DISEASE, UNSPECIFIED 7 PNEUMONIA 8 Altered mental status Assessment/Plan O2 ABX PER ID Peggy BD TX PRN AC chest ct abg DR PELLETIER
--- NOTE | 2017-05-15 13:28 | PN ---
Progress Note, Physician History of Present Illness: patient looks grossly lethargic in room some suspicion trying to feed him patient probably developing aspiration pna patient on abx - Current Medication List Current Medications: Active Medications Acetaminophen (Tylenol -) 650 mg PO Q6H PRN PRN Reason: FEVER OR PAIN Al Hydroxide/Mg Hydroxide (Mylanta Oral Suspension -) 30 ml PO Q6H PRN PRN Reason: INDIGESTION Last Admin: 05/13/17 13:00 Dose: 30 ml Albuterol/Ipratropium (Duoneb -) 1 amp NEB TIDR [facility] Last Admin: 05/15/17 06:50 Dose: 1 amp Ascorbic Acid (Vitamin C -) 500 mg PO HS [facility] Last Admin: 05/14/17 22:29 Dose: Not Given Atorvastatin Calcium (Lipitor -) 10 mg PO HS [facility] Last Admin: 05/14/17 22:28 Dose: Not Given Brimonidine Tartrate (Alphagan 0.15% -) 1 drop OD BID [facility] Last Admin: 05/15/17 10:29 Dose: Not Given Cholecalciferol (Vitamin D3 -) 1,000 unit PO DAILY [facility] Last Admin: 05/15/17 09:07 Dose: Not Given Dabigatran (Pradaxa -) 150 mg PO BID [facility] Last Admin: 05/15/17 09:07 Dose: Not Given Docusate Sodium (Colace -) 200 mg PO HS [facility] Last Admin: 05/14/17 22:27 Dose: Not Given Duloxetine HCl (Cymbalta -) 60 mg PO HS [facility] Last Admin: 05/14/17 22:27 Dose: Not Given Fenofibric Acid (Trilipix -) 135 mg PO DAILY [facility] Last Admin: 05/15/17 09:07 Dose: Not Given Fluticasone Propionate (Flonase -) 2 spray NS DAILY [facility] Last Admin: 05/15/17 09:07 Dose: Not Given Gabapentin (Neurontin -) 600 mg PO BID [facility] Last Admin: 05/14/17 10:23 Dose: 600 mg Ertapenem 1 gm/ Sodium (Chloride) 50 mls @ 50 mls/hr IVPB DAILY [facility] PRN Reason: Protocol Last Admin: 05/15/17 08:59 Dose: 50 mls/hr Vancomycin HCl 1,250 mg/ (Sodium Chloride) 250 mls @ 250 mls/hr IVPB DAILY [facility] PRN Reason: Protocol Last Admin: 05/15/17 10:40 Dose: Not Given Sodium Chloride (Normal Saline -) 1,000 mls @ 42 mls/hr IV ASDIR [facility] Last Admin: 05/15/17 01:57 Dose: Not Given Sodium Chloride (Normal Saline -) 1,000 mls @ 50 mls/hr IV ASDIR [facility] Last Admin: 05/15/17 00:00 Dose: 50 mls/hr Lactobacillus Acidophilus (Bacid -) 1 tab PO DAILY [facility] Last Admin: 05/15/17 09:07 Dose: Not Given Levothyroxine Sodium (Synthroid -) 50 mcg PO DAILY@0700 [facility] Last Admin: 05/15/17 06:03 Dose: 50 mcg Methylprednisolone Sodium Succinate (Solu-Medrol -) 40 mg IVPB BID [facility] Metoprolol Tartrate (Lopressor -) 12.5 mg PO BID [facility] Last Admin: 05/15/17 09:07 Dose: Not Given Slow Release Ferrous Sulfate (45mg Elemental Feso4) 1 each PO BID [facility] Last Admin: 05/15/17 09:07 Dose: Not Given Ranitidine HCl (Zantac -) 150 mg PO BID [facility] Last Admin: 05/15/17 09:08 Dose: Not Given Senna (Senna -) 2 tab PO DAILY [facility] Last Admin: 05/15/17 09:07 Dose: Not Given Tamsulosin HCl (Flomax -) 0.4 mg PO DAILY@0830 [facility] Last Admin: 05/15/17 09:06 Dose: Not Given Tiotropium [place] (Spiriva -) 1 puff IH DAILY [facility] Last Admin: 05/15/17 09:07 Dose: Not Given - Objective Vital Signs: Vital Signs Temperature 97.0 F L 05/15/17 10:00 Pulse Rate 94 H 05/15/17 10:00 Respiratory Rate 20 05/15/17 10:00 Blood Pressure 112/59 05/15/17 10:00 O2 Sat by Pulse Oximetry (%) 100 05/15/17 09:00 Constitutional: Yes: Other (lethargic) Cardiovascular: Yes: Regular Rate and Rhythm Respiratory: Yes: On Nasal O2, Poor Air Entry, Rhonchi, Other Gastrointestinal: Yes: Normal Bowel Sounds, Soft Musculoskeletal: Yes: WNL Extremities: Yes: WNL Neurological: Yes: Other (lethargic) Psychiatric: Yes: Other Labs: CBC, BMP 05/15/17 05:49 05/15/17 05:49 Assessment/Plan Problem List - Problems (1) Pneumonia Code(s): J18.9 - PNEUMONIA, UNSPECIFIED ORGANISM Qualifiers: Laterality: right Lung location: lower lobe of lung (2) Alkalosis, metabolic Code(s): E87.3 - ALKALOSIS (3) Atrial fibrillation Code(s): I48.91 - UNSPECIFIED ATRIAL FIBRILLATION Qualifiers: Atrial fibrillation type: chronic Qualified Code(s): I48.2 - Chronic atrial fibrillation (4) CHF (congestive heart failure) Code(s): I50.9 - HEART FAILURE, UNSPECIFIED Qualifiers: Congestive heart failure type: unspecified congestive heart failure type Congestive heart failure chronicity: chronic Qualified Code(s): I50.9 - Heart failure, unspecified (5) GERD (gastroesophageal reflux disease) Code(s): K21.9 - GASTRO-ESOPHAGEAL REFLUX DISEASE WITHOUT ESOPHAGITIS (6) HTN (hypertension) Code(s): I10 - ESSENTIAL (PRIMARY) HYPERTENSION (7) Hyperlipemia Code(s): E78.5 - HYPERLIPIDEMIA, UNSPECIFIED (8) Hypothyroidism Code(s): E03.9 - HYPOTHYROIDISM, UNSPECIFIED (9) PVD (peripheral vascular disease) Code(s): I73.9 - PERIPHERAL VASCULAR DISEASE, UNSPECIFIED Assessment/Plan (1) Community acquired pneumonia (2) Alkalosis, metabolic Code(s): E87.3 - ALKALOSIS (3) Atrial fibrillation Code(s): I48.91 - UNSPECIFIED ATRIAL FIBRILLATION Qualifiers: Atrial fibrillation type: chronic Qualified Code(s): I48.2 - Chronic atrial fibrillation (4) CHF (congestive heart failure) Code(s): I50.9 - HEART FAILURE, UNSPECIFIED Qualifiers: Congestive heart failure type: unspecified congestive heart failure type Congestive heart failure chronicity: chronic Qualified Code(s): I50.9 - Heart failure, unspecified (5) GERD (gastroesophageal reflux disease) Code(s): K21.9 - GASTRO-ESOPHAGEAL REFLUX DISEASE WITHOUT ESOPHAGITIS (6) HTN (hypertension) Code(s): I10 - ESSENTIAL (PRIMARY) HYPERTENSION (7) Hyperlipemia Code(s): E78.5 - HYPERLIPIDEMIA, UNSPECIFIED (8) Hypothyroidism Code(s): E03.9 - HYPOTHYROIDISM, UNSPECIFIED (9) PVD (peripheral vascular disease) Code(s): I73.9 - PERIPHERAL VASCULAR DISEASE, UNSPECIFIED plan continue abx conitnue kenya will change ertapenam to lissy keep patient npo incentive kimberly told not to feed the patient rest as per primary
[2017-05-15 14:25] LABS: ARTERIAL BLD GAS O2 SATURATION 99.2 % (90-98.9); ARTERIAL BLOOD GAS BASE EXCESS 6.7 meq/l (-2-2); ARTERIAL BLOOD GAS HCO3 34.3 meq/L (22-26)
[2017-05-15 14:26] LABS: ALLENS TEST POSITIVE; ART PUNCT SITE LEFT RADIAL; LPM/O2% 2LPM; PT. ON O2? YES; TYPE OF O2 NASAL
[2017-05-15 14:28] LABS: ARTERIAL BLOOD GAS pH 7.31 (7.35-7.45)
[2017-05-15] MEDS: MEROPENEM 1 GM in DEXTROSE 5%-WATER - 100 ML IVPB SCH ×2 (15:30→17:49)
[2017-05-15] MEDS: VANCOMYCIN 750 MG in DEXTROSE 5%-WATER - 250 ML IVPB SCH (16:30)
[2017-05-15] MEDS: DULoxetine HCL 30 MG CAPSULE.DR (FP) PO SCH (21:27)
[2017-05-15] MEDS: ATORVASTATIN CA 10 MG TABLET (FP) PO SCH (21:27)
[2017-05-15] MEDS: DOCUSATE SODIUM 100 MG CAPSULE (FP) PO SCH (21:27)
[2017-05-15] MEDS: ASCORBIC ACID 500 MG TABLET (FP) PO SCH (21:27)
[2017-05-15] MEDS: methylPREDNISolone NA SUCC 40 MG/1 ML VIAL IVPB SCH (22:09)
[2017-05-15] MEDS: ENOXAPARIN NA (PORCINE) 80 MG/0.8 ML DISP.SYRIN SQ SCH (22:09)
[2017-05-16] MEDS ORDERED: PT OWN MED DRAWER 7, Y5N ONE ×5 (02:31→20:00)
[2017-05-16] MEDS: MEROPENEM 1 GM in DEXTROSE 5%-WATER - 100 ML IVPB SCH ×3 (02:34→17:30)
[2017-05-16] MEDS: SODIUM CHLORIDE 1,000 ML IV SCH ×2 (02:34→02:35)
[2017-05-16] MEDS: ALBUTEROL SO4 2.5/IPRATROPIUM 0.5 INH SOL 3 ML VIAL.NEB. NEB SCH ×3 (06:05→22:06)
[2017-05-16] MEDS: LEVOTHYROXINE NA 50 MCG TABLET (FP) PO SCH (06:10)
[2017-05-16 07:44] LABS: BASOPHIL 0.2 % (0-2.0); MCH 34.9 pg (25.7-33.7); MCHC 33.4 g/dl (32.0-35.9); MEAN CELL VOLUME 104.2 fl (80-96); MEAN PLT VOLUME 9.3 fl (7.5-11.1); NEUTROPHILS 95.9 % (42.8-82.8); PLATELET COUNT 157 K/MM3 (134-434); WHITE BLOOD COUNT 13.6 K/mm3 (4.0-10.0)
[2017-05-16 08:39] LABS: ANION GAP 5 (8-16); CALCIUM 8.9 mg/dL (8.5-10.1); CO2 33 mmol/L (21-32); GLUCOSE,RANDOM 121 mg/dL (74-106); MAGNESIUM 2.6 mg/dL (1.8-2.4)
[2017-05-16] MEDS: LACTOBACILLUS ACIDOPHILUS 1 EACH TAB (FP) PO SCH (09:17)
[2017-05-16] MEDS: TAMSULOSIN HCL 0.4 MG CAP.ER.24H (FP) PO SCH (09:17)
[2017-05-16] MEDS: SENNOSIDES 8.6MG TABLET (FP) PO SCH (09:18)
[2017-05-16] MEDS: TIOTROPIUM BROMIDE 18 MCG/INH (DEVICE W/ 5 CAPSULES) IH SCH (09:18)
[2017-05-16] MEDS: FLUTICASONE PROP 0.05% 16 GM NASAL SPRAY NS SCH (09:18)
[2017-05-16] MEDS: FENOFIBRIC ACID 135 MG CAP PO SCH (09:18)
[2017-05-16] MEDS: FERROUS SULFATE PO SCH ×2 (09:18→21:37)
[2017-05-16] MEDS: CHOLECALCIFEROL (VITAMIN D3) 1,000 UNIT TABLET (FP) PO SCH (09:18)
[2017-05-16] MEDS: METOPROLOL TARTRATE 25 MG TABLET (FP) PO SCH ×2 (09:18→21:37)
[2017-05-16] MEDS: RANITIDINE HCL 150 MG TABLET (FP) PO SCH ×2 (09:19→21:37)
[2017-05-16] MEDS: ENOXAPARIN NA (PORCINE) 80 MG/0.8 ML DISP.SYRIN SQ SCH ×2 (09:23→21:36)
[2017-05-16] MEDS: methylPREDNISolone NA SUCC 40 MG/1 ML VIAL IVPB SCH ×2 (09:29→21:36)
[2017-05-16] MEDS: BRIMONIDINE TARTRATE 0.15% OPHTHALMIC 5 ML BOTTLE OD SCH ×2 (09:29→21:36)
--- NOTE | 2017-05-16 10:30 | PN ---
Progress Note (short form) - Note Progress Note: s: on bipap now, drowsy but arousable, +sob, no cp palps dizzy o: Vital Signs Period Temp Pulse Resp BP Sys/Mitchell Pulse Ox Last 24 Hr 94.0 F-98.9 F 79-94 20-23 102-143/53-63 96-99 nad no jvd irreg, s1s2 no mrg scattered rhonchi, on bipap now drowsy but arousable no le e/c/c abd nt nd pos bs no jaundice diaphoresis Current Medications Generic Name Dose Route Start Last Admin Trade Name Freq PRN Reason Stop Dose Admin Acetaminophen 650 mg 05/08/17 18:51 Tylenol - PO Q6H PRN FEVER OR PAIN Al Hydroxide/Mg Hydroxide 30 ml 05/13/17 12:50 05/13/17 13:00 Mylanta Oral Suspension - PO 30 ml Q6H PRN Administration INDIGESTION Albuterol/Ipratropium 1 amp 05/11/17 22:00 05/16/17 06:05 Duoneb - NEB 1 amp TIDR [facility]EL Administration Ascorbic Acid 500 mg 05/08/17 22:00 05/15/17 21:27 Vitamin C - PO Not Given HS [facility] Atorvastatin Calcium 10 mg 05/08/17 22:00 05/15/17 21:27 Lipitor - PO Not Given HS [facility] Brimonidine Tartrate 1 drop 05/08/17 22:00 05/16/17 09:29 Alphagan 0.15% - OD 1 drop BID [facility] Administration Cholecalciferol 1,000 unit 05/09/17 10:00 05/16/17 09:18 Vitamin D3 - PO Not Given DAILY [facility] Docusate Sodium 200 mg 05/08/17 22:00 05/15/17 21:27 Colace - PO Not Given HS [facility] Duloxetine HCl 60 mg 05/08/17 22:00 05/15/17 21:27 Cymbalta - PO Not Given HS [facility] Enoxaparin Sodium 70 mg 05/15/17 22:15 05/16/17 09:23 Lovenox - SQ 70 mg BID [facility] Administration Fenofibric Acid 135 mg 05/09/17 10:00 05/16/17 09:18 Trilipix - PO Not Given DAILY [facility] Fluticasone Propionate 2 spray 05/09/17 10:00 05/16/17 09:18 Flonase - NS Not Given DAILY [facility] Gabapentin 600 mg 05/08/17 22:00 05/14/17 10:23 Neurontin - PO 600 mg BID [facility] Administration Sodium Chloride 1,000 mls @ 50 mls/hr 05/15/17 02:00 05/16/17 02:34 Normal Saline - IV 50 mls/hr ASDIR [facility] Administration Meropenem 1 gm/ Dextrose 100 mls @ 100 mls/hr 05/15/17 14:00 05/16/17 09:21 IVPB 100 mls/hr Q8H-IV [facility] Administration Protocol Vancomycin HCl 750 mg/ 250 mls @ 250 mls/hr 05/15/17 15:00 05/15/17 16:30 Dextrose IVPB 250 mls/hr DAILY@1500 [facility] Administration Lactobacillus Acidophilus 1 tab 05/10/17 11:00 05/16/17 09:17 Bacid - PO Not Given DAILY [facility] Levothyroxine Sodium 50 mcg 05/09/17 07:00 05/16/17 06:10 Synthroid - PO Not Given DAILY@0700 [facility] Methylprednisolone Sodium Succinate 40 mg 05/15/17 22:00 05/16/17 09:29 Solu-Medrol - IVPB 40 mg BID [facility] Administration Metoprolol Tartrate 12.5 mg 05/14/17 22:00 05/16/17 09:18 Lopressor - PO Not Given BID [facility] Slow Release Ferrous 1 each 05/10/17 22:00 05/16/17 09:18 Sulfate (45mg PO Not Given Elemental Feso4) BID [facility] Ranitidine HCl 150 mg 05/08/17 22:00 05/16/17 09:19 Zantac - PO Not Given BID [facility] Senna 2 tab 05/09/17 10:00 05/16/17 09:18 Senna - PO Not Given DAILY [facility] Tamsulosin HCl 0.4 mg 05/15/17 08:30 05/16/17 09:17 Flomax - PO Not Given DAILY@0830 [facility] Tiotropium [place] 1 puff 05/09/17 13:00 05/16/17 09:18 Spiriva - IH Not Given DAILY [facility] CBC, BMP 05/16/17 06:30 05/16/17 06:30 ecg 05/09/17: afib, rate controlled, nl qtc, no ischemic changes, rbbb echo 01/2015: mild dec lvef, ant/septal HK, nl rv size, mild bi-atrial dil, mild tr, rvsp 40-50 echo 10/2016: low nl lvef, nl lv size, nl rv, mild elena, mild mr/tr, rvsp 40-50 mibi 10/2016: no ischemia a/p: 86 Y/O Gentleman with a PMhx that includes CKD, CAD s/p pci to rca 2004 ( patent on cath 2006), PVD s/p le bypass/stents/amputations, HTN, Afib on AC, here with sob, weakness. fatigue, sob: -bnp very high, but outpt lasix has not improved his sxs and here with no signs of vol overload so does not seem that chf causing his sxs -imaging shows infiltrates, possibly aspirating, cont abx per ID afib: -had been on pradaxa but npo now so on lovenox -rate controlled, cont low dose bb if can tolerate po cad s/p remote pci: -stable -no signs acs -cont AC, statin. has been off bb/acei due to low bp as outpt, but started BB here for AF chronic diastolic chf: -bnp 23K (baseline 8-10K) -05/13: has been on lasix 40 po daily, wts ranging 151-157 here, suspect JVD on exam though he is asymptomatic. cxr 05/12 with mild incr interstl markings ? mild chf. given lasix 40mg IVP x 1 - 05/14: bp drop after lasix. today bicarb up to 38 and lethargic (baseline unknown to me). Would hold po lasix tomorrow, monitor for when to resume. K 4.5 , mg 2.5. can stop standing repletion. -05/15-14: no signs vol overload, cont to hold home lasix until cr back to baseline htn: -labile here, currently running low. hld: -cont home statin anemia: -chronic, counts stable here
--- NOTE | 2017-05-16 10:37 | PN ---
Progress Note (short form) - Note Progress Note: Neurology 86 year old male who presented with shortness of breath and weakness that had been progressive over several days with decreased exercise tolerance and evolving to shortness of breath at rest. He has been getting treatment for PNA and admitted for further treatment. Neurologically, I was consulted for altered mental status. At bedside, he is awake and alert and responsive, but not following commands. He remains fatigued appearing and with heavy breaths despite facemask. When questioned, would not answer and would not participate in confrontation testing. CT head completed and did not show acute changes. 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 Getting ongoing pulmonary and ID treatment. CT chest completed recently and in chart. Active Medications Acetaminophen (Tylenol -) 650 mg PO Q6H PRN PRN Reason: FEVER OR PAIN Al Hydroxide/Mg Hydroxide (Mylanta Oral Suspension -) 30 ml PO Q6H PRN PRN Reason: INDIGESTION Last Admin: 05/13/17 13:00 Dose: 30 ml Albuterol/Ipratropium (Duoneb -) 1 amp NEB TIDR [facility] Last Admin: 05/16/17 06:05 Dose: 1 amp Ascorbic Acid (Vitamin C -) 500 mg PO HS [facility] Last Admin: 05/15/17 21:27 Dose: Not Given Atorvastatin Calcium (Lipitor -) 10 mg PO HS [facility] Last Admin: 05/15/17 21:27 Dose: Not Given Brimonidine Tartrate (Alphagan 0.15% -) 1 drop OD BID [facility] Last Admin: 05/16/17 09:29 Dose: 1 drop Cholecalciferol (Vitamin D3 -) 1,000 unit PO DAILY [facility] Last Admin: 05/16/17 09:18 Dose: Not Given Docusate Sodium (Colace -) 200 mg PO HS [facility] Last Admin: 05/15/17 21:27 Dose: Not Given Duloxetine HCl (Cymbalta -) 60 mg PO HS [facility] Last Admin: 05/15/17 21:27 Dose: Not Given Enoxaparin Sodium (Lovenox -) 70 mg SQ BID [facility] Last Admin: 05/16/17 09:23 Dose: 70 mg Fenofibric Acid (Trilipix -) 135 mg PO DAILY [facility] Last Admin: 05/16/17 09:18 Dose: Not Given Fluticasone Propionate (Flonase -) 2 spray NS DAILY [facility] Last Admin: 05/16/17 09:18 Dose: Not Given Gabapentin (Neurontin -) 600 mg PO BID [facility] Last Admin: 05/14/17 10:23 Dose: 600 mg Sodium Chloride (Normal Saline -) 1,000 mls @ 50 mls/hr IV ASDIR [facility] Last Admin: 05/16/17 02:34 Dose: 50 mls/hr Meropenem 1 gm/ Dextrose 100 mls @ 100 mls/hr IVPB Q8H-IV [facility] PRN Reason: Protocol Last Admin: 05/16/17 09:21 Dose: 100 mls/hr Vancomycin HCl 750 mg/ (Dextrose) 250 mls @ 250 mls/hr IVPB DAILY@1500 [facility] Last Admin: 05/15/17 16:30 Dose: 250 mls/hr Lactobacillus Acidophilus (Bacid -) 1 tab PO DAILY [facility] Last Admin: 05/16/17 09:17 Dose: Not Given Levothyroxine Sodium (Synthroid -) 50 mcg PO DAILY@0700 [facility] Last Admin: 05/16/17 06:10 Dose: Not Given Methylprednisolone Sodium Succinate (Solu-Medrol -) 40 mg IVPB BID [facility] Last Admin: 05/16/17 09:29 Dose: 40 mg Metoprolol Tartrate (Lopressor -) 12.5 mg PO BID [facility] Last Admin: 05/16/17 09:18 Dose: Not Given Slow Release Ferrous Sulfate (45mg Elemental Feso4) 1 each PO BID [facility] Last Admin: 05/16/17 09:18 Dose: Not Given Ranitidine HCl (Zantac -) 150 mg PO BID [facility] Last Admin: 05/16/17 09:19 Dose: Not Given Senna (Senna -) 2 tab PO DAILY [facility] Last Admin: 05/16/17 09:18 Dose: Not Given Tamsulosin HCl (Flomax -) 0.4 mg PO DAILY@0830 [facility] [place] Last Admin: 05/16/17 09:17 Dose: Not Given Tiotropium [place] (Spiriva -) 1 puff IH DAILY [facility] [place] Last Admin: 05/16/17 09:18 Dose: Not Given Physical Examination Vital Signs Temperature 98.9 F 05/16/17 08:50 Pulse Rate 87 05/16/17 10:16 Respiratory Rate 23 05/16/17 06:00 Blood Pressure 118/63 05/16/17 06:00 O2 Sat by Pulse Oximetry (%) 96 05/16/17 10:16 Constitutional: Yes: Well Nourished, No Distress, Calm Eyes: Yes: Conjunctiva Clear, EOM Intact, PERRL Cardiovascular: Yes: Regular Rate and Rhythm. No: Gallop, Murmur, Rub Respiratory: Yes: Regular, CTA Bilaterally. No: Rales, Rhonchi, Wheezes Gastrointestinal: Yes: Normal Bowel Sounds, Soft. No: Distention, Tenderness Extremities: Yes: WNL Neuro: CN appear intact, no facial droop, difficult to assess dysarthria, moving extremities grossly but not participating in confrontation testing, sensory intact CBCD WBC 13.6 K/mm3 (4.0-10.0) H 05/16/17 06:30 RBC 2.84 M/mm3 (4.00-5.60) L 05/16/17 06:30 Hgb 9.9 GM/dL (11.7-16.9) L 05/16/17 06:30 Hct 29.6 % (35.4-49) L 05/16/17 06:30 MCV 104.2 fl (80-96) H 05/16/17 06:30 MCHC 33.4 g/dl (32.0-35.9) 05/16/17 06:30 RDW 17.0 % (11.9-15.9) H 05/16/17 06:30 Plt Count 157 K/MM3 (134-434) 05/16/17 06:30 MPV 9.3 fl (7.5-11.1) 05/16/17 06:30 CMP Sodium 135 mmol/L (136-145) L 05/16/17 06:30 Potassium 4.7 mmol/L (3.5-5.1) 05/16/17 06:30 Chloride 97 mmol/L (98-107) L 05/16/17 06:30 Carbon Dioxide 33 mmol/L (21-32) H 05/16/17 06:30 Anion Gap 5 (8-16) L 05/16/17 06:30 BUN 54 mg/dL (7-18) H D 05/16/17 06:30 Creatinine 1.0 mg/dL (0.7-1.3) 05/16/17 06:30 Creat Clearance w eGFR > 60 (>60) 05/13/17 06:20 Calcium 8.9 mg/dL (8.5-10.1) 05/16/17 06:30 Total Bilirubin 0.6 mg/dL (0.2-1.0) D 05/13/17 06:20 AST 27 U/L (15-37) D 05/13/17 06:20 ALT 13 U/L (12-78) 05/13/17 06:20 Alkaline Phosphatase 43 U/L (45-117) L 05/13/17 06:20 Total Protein 5.8 g/dl (6.4-8.2) L 05/13/17 06:20 Albumin 2.8 g/dl (3.4-5.0) L 05/13/17 06:20 Imaging - Results Chest X-ray: Report Reviewed, Image Reviewed CT head reviewed Plan: 86 year old male who presented with shortness of breath and weakness that had been progressive over several days with decreased exercise tolerance and evolving to shortness of breath at rest. He has been getting treatment for PNA and admitted for further treatment. Neurologically, I was consulted for altered mental status. At bedside, he is awake and alert but minimally responsive, but not following commands. He is fatigued appearing and with heavy breaths despite facemask. When questioned, would not answer and would not participate in confrontation testing. CT head reviewed. Mental status may be secondary to ongoing respiratory dyfunction/PNA. CT chest completed Follow up pulmonary rec'd Would recommend continuation of treatment for infection, on Vanco. D/Patrice Gabapentin for now Atrial Fib rate controlled, continue pradaxa On Lasix for HTN BP control Monitor Blood pressure, avoid episodes of HTN or hypotension Monitor lytes/labs for toxic metabolic derangements
--- NOTE | 2017-05-16 11:16 | PN ---
Progress Note, [employer] - Note Progress Note: CT chest noted. On bipap. Selected Entries 05/15/17 05/15/17 05/15/17 01:34 06:00 10:00 Supper Temperature 98.5 F 98.1 F 97.0 F L 05/15/17 05/15/17 05/15/17 14:00 21:00 21:55 Supper Temperature 97.8 F 95.6 F L 94.0 F L 05/16/17 05/16/17 05/16/17 02:00 06:00 08:50 Supper NPO Temperature 96.7 F L 97.3 F L 98.9 F 05/16/17 09:00 Supper Temperature 98.4 F Laboratory Tests 05/14/17 05/15/17 05/16/17 07:00 05:49 06:30 WBC 12.3 H 18.5 H D 13.6 H Expectorated large piece of mucus, per nursing. Plan:NPO until more alert/responsive/MBS.
--- NOTE | 2017-05-16 11:26 | PN ---
Progress Note (short form) - Note Progress Note: Patient seen and examined in the Telemetry unit. Drowsy but arousable on NIPPV. Appears weaker today. Not answering questions. Intake & Output 05/13/17 05/14/17 05/15/17 05/16/17 23:59 23:59 23:59 23:59 Intake Total 900 330 690 450 Output Total 470 550 100 Balance 900 -140 140 350 Weight 155 lb 9.6 oz 155 lb 6 oz Last Vital Signs Temp Pulse Resp BP Pulse Ox 98.4 F 87 20 130/70 96 05/16/17 09:00 05/16/17 10:16 05/16/17 09:00 05/16/17 09:00 05/16/17 10:16 Active Medications Acetaminophen (Tylenol -) 650 mg PO Q6H PRN PRN Reason: FEVER OR PAIN Al Hydroxide/Mg Hydroxide (Mylanta Oral Suspension -) 30 ml PO Q6H PRN PRN Reason: INDIGESTION Last Admin: 05/13/17 13:00 Dose: 30 ml Albuterol/Ipratropium (Duoneb -) 1 amp NEB TIDR [facility] Last Admin: 05/16/17 06:05 Dose: 1 amp Ascorbic Acid (Vitamin C -) 500 mg PO HS [facility] Last Admin: 05/15/17 21:27 Dose: Not Given Atorvastatin Calcium (Lipitor -) 10 mg PO HS [facility] Last Admin: 05/15/17 21:27 Dose: Not Given Brimonidine Tartrate (Alphagan 0.15% -) 1 drop OD BID [facility] Last Admin: 05/16/17 09:29 Dose: 1 drop Cholecalciferol (Vitamin D3 -) 1,000 unit PO DAILY [facility] Last Admin: 05/16/17 09:18 Dose: Not Given Docusate Sodium (Colace -) 200 mg PO HS [facility] Last Admin: 05/15/17 21:27 Dose: Not Given Duloxetine HCl (Cymbalta -) 60 mg PO HS [facility] Last Admin: 05/15/17 21:27 Dose: Not Given Enoxaparin Sodium (Lovenox -) 70 mg SQ BID [facility] Last Admin: 05/16/17 09:23 Dose: 70 mg Fenofibric Acid (Trilipix -) 135 mg PO DAILY [facility] Last Admin: 05/16/17 09:18 Dose: Not Given Fluticasone Propionate (Flonase -) 2 spray NS DAILY [facility] Last Admin: 05/16/17 09:18 Dose: Not Given Gabapentin (Neurontin -) 600 mg PO BID [facility] Last Admin: 05/14/17 10:23 Dose: 600 mg Sodium Chloride (Normal Saline -) 1,000 mls @ 50 mls/hr IV ASDIR [facility] Last Admin: 05/16/17 02:34 Dose: 50 mls/hr Meropenem 1 gm/ Dextrose 100 mls @ 100 mls/hr IVPB Q8H-IV [facility] PRN Reason: Protocol Last Admin: 05/16/17 09:21 Dose: 100 mls/hr Vancomycin HCl 750 mg/ (Dextrose) 250 mls @ 250 mls/hr IVPB DAILY@1500 [facility] Last Admin: 05/15/17 16:30 Dose: 250 mls/hr Lactobacillus Acidophilus (Bacid -) 1 tab PO DAILY [facility] Last Admin: 05/16/17 09:17 Dose: Not Given Levothyroxine Sodium (Synthroid -) 50 mcg PO DAILY@0700 [facility] Last Admin: 05/16/17 06:10 Dose: Not Given Methylprednisolone Sodium Succinate (Solu-Medrol -) 40 mg IVPB BID [facility] Last Admin: 05/16/17 09:29 Dose: 40 mg Metoprolol Tartrate (Lopressor -) 12.5 mg PO BID [facility] Last Admin: 05/16/17 09:18 Dose: Not Given Slow Release Ferrous Sulfate (45mg Elemental Feso4) 1 each PO BID [facility] Last Admin: 05/16/17 09:18 Dose: Not Given Ranitidine HCl (Zantac -) 150 mg PO BID [facility] Last Admin: 05/16/17 09:19 Dose: Not Given Senna (Senna -) 2 tab PO DAILY [facility] Last Admin: 05/16/17 09:18 Dose: Not Given Tamsulosin HCl (Flomax -) 0.4 mg PO DAILY@0830 [facility] Last Admin: 05/16/17 09:17 Dose: Not Given Tiotropium [place] (Spiriva -) 1 puff IH DAILY [facility] Last Admin: 05/16/17 09:18 Dose: Not Given Constitutional: Yes: Lethargic on NIPPV Eyes: Yes: WNL HENT: Yes: WNL Neck: Yes: Supple Cardiovascular: Yes: Pulse Irregular, S1, S2 Respiratory: Yes: scattered bilateral rhonchi Right > Left Gastrointestinal: Yes: Normal Bowel Sounds, Soft Extremities: Yes: WNL Edema: No Labs: Laboratory Results - last 24 hr 05/15/17 05/15/17 05/16/17 10:55 14:20 06:30 WBC 13.6 H RBC 2.84 L Hgb 9.9 L Hct 29.6 L MCV 104.2 H MCH 34.9 H MCHC 33.4 RDW 17.0 H Plt Count 157 MPV 9.3 Neutrophils % 95.9 H Lymphocytes % 1.6 L D Monocytes % 2.3 L Eosinophils % 0.0 Basophils % 0.2 Puncture Site Left radial ABG pH 7.31 L ABG pCO2 at Pt Temp 70.3 H* ABG pO2 at Pt Temp 150.0 H D ABG HCO3 34.3 H ABG O2 Sat (Measured) 99.2 H ABG O2 Content 15.0 ABG Base Excess 6.7 H Kenny Test Positive O2 Delivery Device Nasal Oxygen Flow Rate 2lpm PEEP 0.0 Sodium Potassium Chloride Carbon Dioxide Anion Gap BUN Creatinine Random Glucose Calcium Phosphorus Magnesium Random Vancomycin 11.695 05/16/17 06:30 WBC RBC Hgb Hct MCV MCH MCHC RDW Plt Count MPV Neutrophils % Lymphocytes % Monocytes % Eosinophils % Basophils % Puncture Site ABG pH ABG pCO2 at Pt Temp ABG pO2 at Pt Temp ABG HCO3 ABG O2 Sat (Measured) ABG O2 Content ABG Base Excess Kenny Test O2 Delivery Device Oxygen Flow Rate PEEP Sodium 135 L Potassium 4.7 Chloride 97 L Carbon Dioxide 33 H Anion Gap 5 L BUN 54 H D Creatinine 1.0 Random Glucose 121 H Calcium 8.9 Phosphorus 4.0 Magnesium 2.6 H Random Vancomycin Assessment/Plan Problem List - Problems (1) Shortness of breath Code(s): R06.02 - SHORTNESS OF BREATH (2) Atrial fibrillation Code(s): I48.91 - UNSPECIFIED ATRIAL FIBRILLATION (3) CHF (congestive heart failure) Code(s): I50.9 - HEART FAILURE, UNSPECIFIED (4) HTN (hypertension) Code(s): I10 - ESSENTIAL (PRIMARY) HYPERTENSION (5) Malignant neoplasm of skin of holiness Code(s): C44.309 - UNSP MALIGNANT NEOPLASM OF SKIN OF OTHER PARTS OF FACE (6) PVD (peripheral vascular disease) Code(s): I73.9 - PERIPHERAL VASCULAR DISEASE, UNSPECIFIED 7 PNEUMONIA Assessment/Plan NIPPV Support ABX per ID Chest PT Spiriva BD TX PRN AC DNR/DNI Dr Boo
--- NOTE | 2017-05-16 11:28 | PN ---
Progress Note, Physician Chief Complaint: Mr Rivas remains lethargic but is protecting his airway. Unable to obtain. - Current Medication List Current Medications: Active Medications Acetaminophen (Tylenol -) 650 mg PO Q6H PRN PRN Reason: FEVER OR PAIN Al Hydroxide/Mg Hydroxide (Mylanta Oral Suspension -) 30 ml PO Q6H PRN PRN Reason: INDIGESTION Last Admin: 05/13/17 13:00 Dose: 30 ml Albuterol/Ipratropium (Duoneb -) 1 amp NEB TIDR [facility] Last Admin: 05/16/17 06:05 Dose: 1 amp Ascorbic Acid (Vitamin C -) 500 mg PO HS [facility] Last Admin: 05/15/17 21:27 Dose: Not Given Atorvastatin Calcium (Lipitor -) 10 mg PO HS [facility] Last Admin: 05/15/17 21:27 Dose: Not Given Brimonidine Tartrate (Alphagan 0.15% -) 1 drop OD BID [facility] Last Admin: 05/16/17 09:29 Dose: 1 drop Cholecalciferol (Vitamin D3 -) 1,000 unit PO DAILY [facility] Last Admin: 05/16/17 09:18 Dose: Not Given Docusate Sodium (Colace -) 200 mg PO HS [facility] Last Admin: 05/15/17 21:27 Dose: Not Given Duloxetine HCl (Cymbalta -) 60 mg PO HS [facility] Last Admin: 05/15/17 21:27 Dose: Not Given Enoxaparin Sodium (Lovenox -) 70 mg SQ BID [facility] Last Admin: 05/16/17 09:23 Dose: 70 mg Fenofibric Acid (Trilipix -) 135 mg PO DAILY [facility] Last Admin: 05/16/17 09:18 Dose: Not Given Fluticasone Propionate (Flonase -) 2 spray NS DAILY [facility] Last Admin: 05/16/17 09:18 Dose: Not Given Gabapentin (Neurontin -) 600 mg PO BID [facility] Last Admin: 05/14/17 10:23 Dose: 600 mg Sodium Chloride (Normal Saline -) 1,000 mls @ 50 mls/hr IV ASDIR [facility] Last Admin: 05/16/17 02:34 Dose: 50 mls/hr Meropenem 1 gm/ Dextrose 100 mls @ 100 mls/hr IVPB Q8H-IV [facility] PRN Reason: Protocol Last Admin: 05/16/17 09:21 Dose: 100 mls/hr Vancomycin HCl 750 mg/ (Dextrose) 250 mls @ 250 mls/hr IVPB DAILY@1500 [facility] Last Admin: 05/15/17 16:30 Dose: 250 mls/hr Lactobacillus Acidophilus (Bacid -) 1 tab PO DAILY [facility] Last Admin: 05/16/17 09:17 Dose: Not Given Levothyroxine Sodium (Synthroid -) 50 mcg PO DAILY@0700 [facility] Last Admin: 05/16/17 06:10 Dose: Not Given Methylprednisolone Sodium Succinate (Solu-Medrol -) 40 mg IVPB BID [facility] Last Admin: 05/16/17 09:29 Dose: 40 mg Metoprolol Tartrate (Lopressor -) 12.5 mg PO BID [facility] Last Admin: 05/16/17 09:18 Dose: Not Given Slow Release Ferrous Sulfate (45mg Elemental Feso4) 1 each PO BID [facility] Last Admin: 05/16/17 09:18 Dose: Not Given Ranitidine HCl (Zantac -) 150 mg PO BID [facility] Last Admin: 05/16/17 09:19 Dose: Not Given Senna (Senna -) 2 tab PO DAILY [facility] Last Admin: 05/16/17 09:18 Dose: Not Given Tamsulosin HCl (Flomax -) 0.4 mg PO DAILY@0830 [facility] Last Admin: 05/16/17 09:17 Dose: Not Given Tiotropium [place] (Spiriva -) 1 puff IH DAILY [facility] Last Admin: 05/16/17 09:18 Dose: Not Given - Objective Vital Signs: Vital Signs Temperature 36.9 C 05/16/17 09:00 Pulse Rate 87 05/16/17 10:16 Respiratory Rate 20 05/16/17 09:00 Blood Pressure 130/70 05/16/17 09:00 O2 Sat by Pulse Oximetry (%) 96 05/16/17 10:16 Constitutional: Yes: Other (lethargic) Cardiovascular: Yes: Regular Rate and Rhythm. No: Gallop, Murmur, Rub Respiratory: Yes: Regular, On BiPap. No: Rales, Rhonchi, Wheezes Gastrointestinal: Yes: Normal Bowel Sounds, Soft. No: Distention, Tenderness Extremities: Yes: WNL Edema: No Labs: CBC, BMP 05/16/17 06:30 09/14/17 06:30 Problem List - Problems (1) Pneumonia Code(s): J18.9 - PNEUMONIA, UNSPECIFIED ORGANISM Qualifiers: Laterality: right Lung location: lower lobe of lung (2) Alkalosis, metabolic Code(s): E87.3 - ALKALOSIS (3) Atrial fibrillation Code(s): I48.91 - UNSPECIFIED ATRIAL FIBRILLATION Qualifiers: Atrial fibrillation type: chronic Qualified Code(s): I48.2 - Chronic atrial fibrillation (4) CHF (congestive heart failure) Code(s): I50.9 - HEART FAILURE, UNSPECIFIED Qualifiers: Congestive heart failure type: unspecified congestive heart failure type Congestive heart failure chronicity: chronic Qualified Code(s): I50.9 - Heart failure, unspecified (5) GERD (gastroesophageal reflux disease) Code(s): K21.9 - GASTRO-ESOPHAGEAL REFLUX DISEASE WITHOUT ESOPHAGITIS (6) HTN (hypertension) Code(s): I10 - ESSENTIAL (PRIMARY) HYPERTENSION (7) Hyperlipemia Code(s): E78.5 - HYPERLIPIDEMIA, UNSPECIFIED (8) Hypothyroidism Code(s): E03.9 - HYPOTHYROIDISM, UNSPECIFIED (9) PVD (peripheral vascular disease) Code(s): I73.9 - PERIPHERAL VASCULAR DISEASE, UNSPECIFIED (10) Acute respiratory failure Code(s): J96.00 - ACUTE RESPIRATORY FAILURE, UNSP W HYPOXIA OR HYPERCAPNIA Qualifiers: Respiratory failure complication: hypoxia and hypercapnia Qualified Code(s): J96.01 - Acute respiratory failure with hypoxia; J96.02 - Acute respiratory failure with hypercapnia (11) Acute respiratory acidosis Code(s): E87.2 - ACIDOSIS Assessment/Plan (1) Community acquired pneumonia Assessment/Plan: -patient with mucous plugging and post obstructive pneumonia -per RN, coughed up large amount of sputum -hopefully mucous plug clearing -leukocytosis improving -now on merrem and vancomycin -ID following (2) Respiratory acidosis Assessment/Plan: -secondary to mucous plugging -continue bipap -pulmonary following Code(s): (3) Atrial fibrillation Assessment/Plan: -controlled -continue pradaxa Code(s): I48.91 - UNSPECIFIED ATRIAL FIBRILLATION Qualifiers: Atrial fibrillation type: chronic Qualified Code(s): I48.2 - Chronic atrial fibrillation (4) CHF (congestive heart failure) Assessment/Plan: -ECHO reviewed and cardiology following -not in exacerbation Code(s): I50.9 - HEART FAILURE, UNSPECIFIED Qualifiers: Congestive heart failure type: unspecified congestive heart failure type Congestive heart failure chronicity: chronic Qualified Code(s): I50.9 - Heart failure, unspecified (5) GERD (gastroesophageal reflux disease) Assessment/Plan: -continue zantac Code(s): K21.9 - GASTRO-ESOPHAGEAL REFLUX DISEASE WITHOUT ESOPHAGITIS (6) HTN (hypertension) Assessment/Plan: -controlled -continue lasix Code(s): I10 - ESSENTIAL (PRIMARY) HYPERTENSION (7) Hyperlipemia Assessment/Plan: -continue fenofibrate and lipitor Code(s): E78.5 - HYPERLIPIDEMIA, UNSPECIFIED (8) Hypothyroidism Assessment/Plan: -continue synthroid Code(s): E03.9 - HYPOTHYROIDISM, UNSPECIFIED (9) PVD (peripheral vascular disease) Assessment/Plan: -on pradaxa -does not complain of claudication Code(s): I73.9 - PERIPHERAL VASCULAR DISEASE, UNSPECIFIED (10) Urinary retention -continue flomax (11) Metabolic encephalopathy -secondary to hypercarbia -continue bipap -continue treating underlying pneumonia (12) Acute respiratory failure -continue bipap -chest PT
[2017-05-16] MEDS: VANCOMYCIN 750 MG in DEXTROSE 5%-WATER - 250 ML IVPB SCH (15:31)
--- NOTE | 2017-05-16 16:06 | PN ---
Progress Note, Physician History of Present Illness: much more awake and alert than yesterday stable sating well had a mucus plug send for c and s - Current Medication List Current Medications: Active Medications Acetaminophen (Tylenol -) 650 mg PO Q6H PRN PRN Reason: FEVER OR PAIN Al Hydroxide/Mg Hydroxide (Mylanta Oral Suspension -) 30 ml PO Q6H PRN PRN Reason: INDIGESTION Last Admin: 05/13/17 13:00 Dose: 30 ml Albuterol/Ipratropium (Duoneb -) 1 amp NEB TIDR [facility] Last Admin: 05/16/17 13:45 Dose: 1 amp Ascorbic Acid (Vitamin C -) 500 mg PO HS [facility] Last Admin: 05/15/17 21:27 Dose: Not Given Atorvastatin Calcium (Lipitor -) 10 mg PO HS [facility] Last Admin: 05/15/17 21:27 Dose: Not Given Brimonidine Tartrate (Alphagan 0.15% -) 1 drop OD BID [facility] Last Admin: 05/16/17 09:29 Dose: 1 drop Cholecalciferol (Vitamin D3 -) 1,000 unit PO DAILY [facility] Last Admin: 05/16/17 09:18 Dose: Not Given Docusate Sodium (Colace -) 200 mg PO HS [facility] Last Admin: 05/15/17 21:27 Dose: Not Given Duloxetine HCl (Cymbalta -) 60 mg PO HS [facility] Last Admin: 05/15/17 21:27 Dose: Not Given Enoxaparin Sodium (Lovenox -) 70 mg SQ BID [facility] Last Admin: 05/16/17 09:23 Dose: 70 mg Fenofibric Acid (Trilipix -) 135 mg PO DAILY [facility] Last Admin: 05/16/17 09:18 Dose: Not Given Fluticasone Propionate (Flonase -) 2 spray NS DAILY [facility] Last Admin: 05/16/17 09:18 Dose: Not Given Gabapentin (Neurontin -) 600 mg PO BID [facility] Last Admin: 05/14/17 10:23 Dose: 600 mg Sodium Chloride (Normal Saline -) 1,000 mls @ 50 mls/hr IV ASDIR [facility] Last Admin: 05/16/17 02:34 Dose: 50 mls/hr Meropenem 1 gm/ Dextrose 100 mls @ 100 mls/hr IVPB Q8H-IV MICHAEL PRN Reason: Protocol Last Admin: 05/16/17 09:21 Dose: 100 mls/hr Vancomycin HCl 750 mg/ (Dextrose) 250 mls @ 250 mls/hr IVPB DAILY@1500 [facility] Last Admin: 05/16/17 15:31 Dose: 250 mls/hr Lactobacillus Acidophilus (Bacid -) 1 tab PO DAILY [facility] Last Admin: 05/16/17 09:17 Dose: Not Given Levothyroxine Sodium (Synthroid -) 50 mcg PO DAILY@0700 [facility] Last Admin: 05/16/17 06:10 Dose: Not Given Methylprednisolone Sodium Succinate (Solu-Medrol -) 40 mg IVPB BID [facility] Last Admin: 05/16/17 09:29 Dose: 40 mg Metoprolol Tartrate (Lopressor -) 12.5 mg PO BID [facility] Last Admin: 05/16/17 09:18 Dose: Not Given Slow Release Ferrous Sulfate (45mg Elemental Feso4) 1 each PO BID [facility] Last Admin: 05/16/17 09:18 Dose: Not Given Ranitidine HCl (Zantac -) 150 mg PO BID [facility] Last Admin: 05/16/17 09:19 Dose: Not Given Senna (Senna -) 2 tab PO DAILY [facility] Last Admin: 05/16/17 09:18 Dose: Not Given Tamsulosin HCl (Flomax -) 0.4 mg PO DAILY@0830 [facility] Last Admin: 05/16/17 09:17 Dose: Not Given Tiotropium [place] (Spiriva -) 1 puff IH DAILY [facility] Last Admin: 05/16/17 09:18 Dose: Not Given - Objective Vital Signs: Vital Signs Temperature 97.5 F L 05/16/17 14:18 Pulse Rate 104 H 05/16/17 14:18 Respiratory Rate 16 05/16/17 14:18 Blood Pressure 136/72 05/16/17 14:18 O2 Sat by Pulse Oximetry (%) 96 05/16/17 13:45 Constitutional: Yes: No Distress, Calm Cardiovascular: Yes: Regular Rate and Rhythm Respiratory: Yes: On Nasal O2, Poor Air Entry, Rhonchi Gastrointestinal: Yes: Normal Bowel Sounds, Soft Musculoskeletal: Yes: WNL Extremities: Yes: WNL Neurological: Yes: Alert, Oriented Psychiatric: Yes: Alert Labs: CBC, BMP 05/16/17 06:30 05/16/17 06:30 Assessment/Plan Problem List - Problems (1) Pneumonia Code(s): J18.9 - PNEUMONIA, UNSPECIFIED ORGANISM Qualifiers: Laterality: right Lung location: lower lobe of lung (2) Alkalosis, metabolic Code(s): E87.3 - ALKALOSIS (3) Atrial fibrillation Code(s): I48.91 - UNSPECIFIED ATRIAL FIBRILLATION Qualifiers: Atrial fibrillation type: chronic Qualified Code(s): I48.2 - Chronic atrial fibrillation (4) CHF (congestive heart failure) Code(s): I50.9 - HEART FAILURE, UNSPECIFIED Qualifiers: Congestive heart failure type: unspecified congestive heart failure type Congestive heart failure chronicity: chronic Qualified Code(s): I50.9 - Heart failure, unspecified (5) GERD (gastroesophageal reflux disease) Code(s): K21.9 - GASTRO-ESOPHAGEAL REFLUX DISEASE WITHOUT ESOPHAGITIS (6) HTN (hypertension) Code(s): I10 - ESSENTIAL (PRIMARY) HYPERTENSION (7) Hyperlipemia Code(s): E78.5 - HYPERLIPIDEMIA, UNSPECIFIED (8) Hypothyroidism Code(s): E03.9 - HYPOTHYROIDISM, UNSPECIFIED (9) PVD (peripheral vascular disease) Code(s): I73.9 - PERIPHERAL VASCULAR DISEASE, UNSPECIFIED Assessment/Plan (1) Community acquired pneumonia (2) Alkalosis, metabolic Code(s): E87.3 - ALKALOSIS (3) Atrial fibrillation Code(s): I48.91 - UNSPECIFIED ATRIAL FIBRILLATION Qualifiers: Atrial fibrillation type: chronic Qualified Code(s): I48.2 - Chronic atrial fibrillation (4) CHF (congestive heart failure) Code(s): I50.9 - HEART FAILURE, UNSPECIFIED Qualifiers: Congestive heart failure type: unspecified congestive heart failure type Congestive heart failure chronicity: chronic Qualified Code(s): I50.9 - Heart failure, unspecified (5) GERD (gastroesophageal reflux disease) Code(s): K21.9 - GASTRO-ESOPHAGEAL REFLUX DISEASE WITHOUT ESOPHAGITIS (6) HTN (hypertension) Code(s): I10 - ESSENTIAL (PRIMARY) HYPERTENSION (7) Hyperlipemia Code(s): E78.5 - HYPERLIPIDEMIA, UNSPECIFIED (8) Hypothyroidism Code(s): E03.9 - HYPOTHYROIDISM, UNSPECIFIED (9) PVD (peripheral vascular disease) Code(s): I73.9 - PERIPHERAL VASCULAR DISEASE, UNSPECIFIED plan continue abx close watch on the patient rest as per primary
[2017-05-16] MEDS: ASCORBIC ACID 500 MG TABLET (FP) PO SCH (21:37)
[2017-05-16] MEDS: DULoxetine HCL 30 MG CAPSULE.DR (FP) PO SCH (21:37)
[2017-05-16] MEDS: DOCUSATE SODIUM 100 MG CAPSULE (FP) PO SCH (21:37)
[2017-05-16] MEDS: ATORVASTATIN CA 10 MG TABLET (FP) PO SCH (21:37)
[2017-05-17] MEDS ORDERED: PT OWN MED DRAWER 7, Y5N ONE ×6 (02:24→21:34)
[2017-05-17] MEDS: SODIUM CHLORIDE 1,000 ML IV SCH (02:47)
[2017-05-17] MEDS: MEROPENEM 1 GM in DEXTROSE 5%-WATER - 100 ML IVPB SCH ×3 (02:47→17:21)
[2017-05-17] MEDS: LEVOTHYROXINE NA 50 MCG TABLET (FP) PO SCH (06:09)
[2017-05-17 06:40] LABS: BASOPHIL 0.1 % (0-2.0); MCH 35.6 pg (25.7-33.7); MCHC 33.8 g/dl (32.0-35.9); MEAN CELL VOLUME 105.2 fl (80-96); NEUTROPHILS 92.8 % (42.8-82.8); PLATELET COUNT 155 K/MM3 (134-434); RDW 16.8 % (11.9-15.9); WHITE BLOOD COUNT 5.2 K/mm3 (4.0-10.0)
[2017-05-17 07:02] LABS: ANION GAP 3 (8-16); CALCIUM 8.9 mg/dL (8.5-10.1); CO2 36 mmol/L (21-32); GLUCOSE,RANDOM 127 mg/dL (74-106); MAGNESIUM 2.7 mg/dL (1.8-2.4); PHOSPHOROUS 3.4 mg/dL (2.5-4.9)
[2017-05-17] MEDS: TAMSULOSIN HCL 0.4 MG CAP.ER.24H (FP) PO SCH (10:07)
[2017-05-17] MEDS: LACTOBACILLUS ACIDOPHILUS 1 EACH TAB (FP) PO SCH (10:10)
[2017-05-17] MEDS: FLUTICASONE PROP 0.05% 16 GM NASAL SPRAY NS SCH (10:12)
[2017-05-17] MEDS: SENNOSIDES 8.6MG TABLET (FP) PO SCH (10:13)
[2017-05-17] MEDS: METOPROLOL TARTRATE 25 MG TABLET (FP) PO SCH ×2 (10:13→22:16)
[2017-05-17] MEDS: FERROUS SULFATE PO SCH ×2 (10:13→21:57)
[2017-05-17] MEDS: FENOFIBRIC ACID 135 MG CAP PO SCH (10:13)
[2017-05-17] MEDS: RANITIDINE HCL 150 MG TABLET (FP) PO SCH ×2 (10:15→21:57)
[2017-05-17] MEDS: CHOLECALCIFEROL (VITAMIN D3) 1,000 UNIT TABLET (FP) PO SCH (10:15)
--- NOTE | 2017-05-17 10:23 | PN ---
Progress Note (short form) - Note Progress Note: s: more awake today. no cp palps dizzy; still sob at times o: Vital Signs Period Temp Pulse Resp BP Sys/Mitchell Pulse Ox Last 24 Hr 97.3 F-98.7 F 87-104 16-22 126-140/61-72 93-99 nad no jvd irreg, s1s2 no mrg scattered rhonchi drowsy but arousable no le e/c/c abd nt nd pos bs no jaundice diaphoresis Current Medications Generic Name Dose Route Start Last Admin Trade Name Freq PRN Reason Stop Dose Admin Acetaminophen 650 mg 05/08/17 18:51 Tylenol - PO Q6H PRN FEVER OR PAIN Al Hydroxide/Mg Hydroxide 30 ml 05/13/17 12:50 05/13/17 13:00 Mylanta Oral Suspension - PO 30 ml Q6H PRN Administration INDIGESTION Ascorbic Acid 500 mg 05/08/17 22:00 05/16/17 21:37 Vitamin C - PO Not Given HS [facility] Atorvastatin Calcium 10 mg 05/08/17 22:00 05/16/17 21:37 Lipitor - PO Not Given HS MICHAEL Brimonidine Tartrate 1 drop 05/08/17 22:00 05/16/17 21:36 Alphagan 0.15% - OD 1 drop BID MIC[facility]EL Administration Cholecalciferol 1,000 unit 05/09/17 10:00 05/16/17 09:18 Vitamin D3 - PO Not Given DAILY MIC[facility]EL Docusate Sodium 200 mg 05/08/17 22:00 05/16/17 21:37 Colace - PO Not Given HS MICHAEL Duloxetine HCl 60 mg 05/08/17 22:00 05/16/17 21:37 Cymbalta - PO Not Given HS MIC[facility]EL Enoxaparin Sodium 70 mg 05/15/17 22:15 05/16/17 21:36 Lovenox - SQ 70 mg BID [facility] Administration Fenofibric Acid 135 mg 05/09/17 10:00 05/16/17 09:18 Trilipix - PO Not Given DAILY [facility] Fluticasone Propionate 2 spray 05/09/17 10:00 05/16/17 09:18 Flonase - NS Not Given DAILY [facility] Gabapentin 600 mg 05/08/17 22:00 05/14/17 10:23 Neurontin - PO 600 mg BID [facility] Administration Sodium Chloride 1,000 mls @ 50 mls/hr 05/15/17 02:00 05/17/17 02:47 Normal Saline - IV 50 mls/hr ASDIR MICHAEL Administration Meropenem 1 gm/ Dextrose 100 mls @ 100 mls/hr 05/15/17 14:00 05/17/17 02:47 IVPB 100 mls/hr Q8H-IV MICHAEL Administration Protocol Vancomycin HCl 750 mg/ 250 mls @ 250 mls/hr 05/15/17 15:00 05/16/17 15:31 Dextrose IVPB 250 mls/hr DAILY@1500 [facility] Administration Lactobacillus Acidophilus 1 tab 05/10/17 11:00 05/16/17 09:17 Bacid - PO Not Given DAILY [facility] Levothyroxine Sodium 50 mcg 05/09/17 07:00 05/17/17 06:09 Synthroid - PO Not Given DAILY@0700 [facility] Methylprednisolone Sodium Succinate 40 mg 05/15/17 22:00 05/16/17 21:36 Solu-Medrol - IVPB 40 mg BID [facility] Administration Metoprolol Tartrate 12.5 mg 05/14/17 22:00 05/16/17 21:37 Lopressor - PO Not Given BID [facility] Slow Release Ferrous 1 each 05/10/17 22:00 05/16/17 21:37 Sulfate (45mg PO Not Given Elemental Feso4) BID [facility] Ranitidine HCl 150 mg 05/08/17 22:00 05/16/17 21:37 Zantac - PO Not Given BID [facility] Senna 2 tab 05/09/17 10:00 05/16/17 09:18 Senna - PO Not Given DAILY [facility] Tamsulosin HCl 0.4 mg 05/15/17 08:30 05/16/17 09:17 Flomax - PO Not Given DAILY@0830 [facility] Tiotropium [place] 1 puff 05/09/17 13:00 05/16/17 09:18 Spiriva - IH Not Given DAILY [facility] CBC, BMP 05/17/17 06:00 05/17/17 06:00 ecg 05/09/17: afib, rate controlled, nl qtc, no ischemic changes, rbbb echo 01/2015: mild dec lvef, ant/septal HK, nl rv size, mild bi-atrial dil, mild tr, rvsp 40-50 echo 10/2016: low nl lvef, nl lv size, nl rv, mild elena, mild mr/tr, rvsp 40-50 mibi 10/2016: no ischemia a/p: 86 Y/O Gentleman with a PMhx that includes CKD, CAD s/p pci to rca 2004 ( patent on cath 2006), PVD s/p le bypass/stents/amputations, HTN, Afib on AC, here with sob, weakness. fatigue, sob: -bnp very high, but outpt lasix has not improved his sxs and here with no signs of vol overload so does not seem that chf causing his sxs -imaging shows pna, mucus plugs, possibly aspirating, cont abx per ID afib: -had been on pradaxa but not tolerating po meds so now on lovenox -rate controlled, cont low dose bb if can tolerate po cad s/p remote pci: -stable -no signs acs -cont AC, statin. has been off bb/acei due to low bp as outpt, but started BB here for AF chronic diastolic chf: -bnp 23K (baseline 8-10K) -05/13: has been on lasix 40 po daily, wts ranging 151-157 here, suspect JVD on exam though he is asymptomatic. cxr 05/12 with mild incr interstl markings ? mild chf. given lasix 40mg IVP x 1 - 05/14: bp drop after lasix. today bicarb up to 38 and lethargic (baseline unknown to me). Would hold po lasix tomorrow, monitor for when to resume. K 4.5 , mg 2.5. can stop standing repletion. -05/15-15: no signs vol overload, cont to hold home lasix htn: -stable hld: -cont home statin anemia: -chronic, counts stable here
--- NOTE | 2017-05-17 10:48 | PN ---
Progress Note, Physician Chief Complaint: Mr Rivas is without complaint today. Says he is feeling well. Denies cp, sob, n/ v. Says he sometimes has coughing with swallowing. - Current Medication List Current Medications: Active Medications Acetaminophen (Tylenol -) 650 mg PO Q6H PRN PRN Reason: FEVER OR PAIN Al Hydroxide/Mg Hydroxide (Mylanta Oral Suspension -) 30 ml PO Q6H PRN PRN Reason: INDIGESTION Last Admin: 05/13/17 13:00 Dose: 30 ml Ascorbic Acid (Vitamin C -) 500 mg PO HS [facility] Last Admin: 05/16/17 21:37 Dose: Not Given Atorvastatin Calcium (Lipitor -) 10 mg PO HS [facility] Last Admin: 05/16/17 21:37 Dose: Not Given Brimonidine Tartrate (Alphagan 0.15% -) 1 drop OD BID [facility] Last Admin: 05/16/17 21:36 Dose: 1 drop Cholecalciferol (Vitamin D3 -) 1,000 unit PO DAILY [facility] Last Admin: 05/17/17 10:15 Dose: Not Given Docusate Sodium (Colace -) 200 mg PO HS [facility] Last Admin: 05/16/17 21:37 Dose: Not Given Duloxetine HCl (Cymbalta -) 60 mg PO HS [facility] Last Admin: 05/16/17 21:37 Dose: Not Given Enoxaparin Sodium (Lovenox -) 70 mg SQ BID [facility] Last Admin: 05/16/17 21:36 Dose: 70 mg Fenofibric Acid (Trilipix -) 135 mg PO DAILY [facility] Last Admin: 05/17/17 10:13 Dose: Not Given Fluticasone Propionate (Flonase -) 2 spray NS DAILY [facility] Last Admin: 05/17/17 10:12 Dose: Not Given Gabapentin (Neurontin -) 600 mg PO BID [facility] Last Admin: 05/14/17 10:23 Dose: 600 mg Sodium Chloride (Normal Saline -) 1,000 mls @ 50 mls/hr IV [facility]IR [facility] Last Admin: 05/17/17 02:47 Dose: 50 mls/hr Meropenem 1 gm/ Dextrose 100 mls @ 100 mls/hr IVPB Q8H-IV MICHAEL PRN Reason: Protocol Last Admin: 05/17/17 02:47 Dose: 100 mls/hr Vancomycin HCl 750 mg/ (Dextrose) 250 mls @ 250 mls/hr IVPB DAILY@1500 [facility] Last Admin: 05/16/17 15:31 Dose: 250 mls/hr Lactobacillus Acidophilus (Bacid -) 1 tab PO DAILY [facility] Last Admin: 05/17/17 10:10 Dose: Not Given Levothyroxine Sodium (Synthroid -) 50 mcg PO DAILY@0700 [facility] Last Admin: 05/17/17 06:09 Dose: Not Given Methylprednisolone Sodium Succinate (Solu-Medrol -) 40 mg IVPB BID [facility] Last Admin: 05/16/17 21:36 Dose: 40 mg Metoprolol Tartrate (Lopressor -) 12.5 mg PO BID [facility] Last Admin: 05/17/17 10:13 Dose: Not Given Slow Release Ferrous Sulfate (45mg Elemental Feso4) 1 each PO BID [facility] Last Admin: 05/17/17 10:13 Dose: Not Given Pantoprazole Sodium (Protonix -) 40 mg PO DAILY [facility] Ranitidine HCl (Zantac -) 150 mg PO BID [facility] Last Admin: 05/17/17 10:15 Dose: Not Given Senna (Senna -) 2 tab PO DAILY [facility] Last Admin: 05/17/17 10:13 Dose: Not Given Tamsulosin HCl (Flomax -) 0.4 mg PO DAILY@0830 [facility] Last Admin: 05/17/17 10:07 Dose: Not Given Tiotropium [place] (Spiriva -) 1 puff IH DAILY [facility] Last Admin: 05/16/17 09:18 Dose: Not Given - Objective Vital Signs: Vital Signs Temperature 36.6 C 05/17/17 06:00 Pulse Rate 87 05/17/17 06:00 Respiratory Rate 22 05/17/17 06:00 Blood Pressure 140/71 05/17/17 06:00 O2 Sat by Pulse Oximetry (%) 97 05/17/17 02:58 Constitutional: Yes: Well Nourished, No Distress, Calm Cardiovascular: Yes: Pulse Irregular. No: Tachycardia, Gallop, Murmur, Rub Respiratory: Yes: Regular, On Nasal O2, Rhonchi. No: Rales, Wheezes Gastrointestinal: Yes: Normal Bowel Sounds, Soft. No: Distention, Tenderness Extremities: Yes: WNL Edema: No Labs: CBC, BMP 05/17/17 06:00 05/17/17 06:00 Problem List - Problems (1) Pneumonia Code(s): J18.9 - PNEUMONIA, UNSPECIFIED ORGANISM Qualifiers: Laterality: right Lung location: lower lobe of lung (2) Alkalosis, metabolic Code(s): E87.3 - ALKALOSIS (3) Atrial fibrillation Code(s): I48.91 - UNSPECIFIED ATRIAL FIBRILLATION Qualifiers: Atrial fibrillation type: chronic Qualified Code(s): I48.2 - Chronic atrial fibrillation (4) CHF (congestive heart failure) Code(s): I50.9 - HEART FAILURE, UNSPECIFIED Qualifiers: Congestive heart failure type: unspecified congestive heart failure type Congestive heart failure chronicity: chronic Qualified Code(s): I50.9 - Heart failure, unspecified (5) GERD (gastroesophageal reflux disease) Code(s): K21.9 - GASTRO-ESOPHAGEAL REFLUX DISEASE WITHOUT ESOPHAGITIS (6) HTN (hypertension) Code(s): I10 - ESSENTIAL (PRIMARY) HYPERTENSION (7) Hyperlipemia Code(s): E78.5 - HYPERLIPIDEMIA, UNSPECIFIED (8) Hypothyroidism Code(s): E03.9 - HYPOTHYROIDISM, UNSPECIFIED (9) PVD (peripheral vascular disease) Code(s): I73.9 - PERIPHERAL VASCULAR DISEASE, UNSPECIFIED (10) Acute respiratory failure Code(s): J96.00 - ACUTE RESPIRATORY FAILURE, UNSP W HYPOXIA OR HYPERCAPNIA Qualifiers: Respiratory failure complication: hypoxia and hypercapnia Qualified Code(s): J96.01 - Acute respiratory failure with hypoxia (11) Acute respiratory acidosis Code(s): E87.2 - ACIDOSIS Assessment/Plan (1) Community acquired pneumonia Assessment/Plan: -patient with post obstructive pneumonia, s/p expactoration of mucus plug -? possible aspiration pneumonia -continue merrem and vancomycin -continue chest PT -barium swallow (2) Respiratory acidosis Assessment/Plan: -resolved -no longer needing bipap -pulmonary following Code(s): (3) Atrial fibrillation Assessment/Plan: -controlled -continue pradaxa Code(s): I48.91 - UNSPECIFIED ATRIAL FIBRILLATION Qualifiers: Atrial fibrillation type: chronic Qualified Code(s): I48.2 - Chronic atrial fibrillation (4) CHF (congestive heart failure) Assessment/Plan: -ECHO reviewed and cardiology following -not in exacerbation Code(s): I50.9 - HEART FAILURE, UNSPECIFIED Qualifiers: Congestive heart failure type: unspecified congestive heart failure type Congestive heart failure chronicity: chronic Qualified Code(s): I50.9 - Heart failure, unspecified (5) GERD (gastroesophageal reflux disease) Assessment/Plan: -continue zantac Code(s): K21.9 - GASTRO-ESOPHAGEAL REFLUX DISEASE WITHOUT ESOPHAGITIS (6) HTN (hypertension) Assessment/Plan: -controlled -continue lasix Code(s): I10 - ESSENTIAL (PRIMARY) HYPERTENSION (7) Hyperlipemia Assessment/Plan: -continue fenofibrate and lipitor Code(s): E78.5 - HYPERLIPIDEMIA, UNSPECIFIED (8) Hypothyroidism Assessment/Plan: -continue synthroid Code(s): E03.9 - HYPOTHYROIDISM, UNSPECIFIED (9) PVD (peripheral vascular disease) Assessment/Plan: -on pradaxa -does not complain of claudication Code(s): I73.9 - PERIPHERAL VASCULAR DISEASE, UNSPECIFIED (10) Urinary retention -continue flomax -nelson in place (11) Metabolic encephalopathy -resolved (12) Acute respiratory failure -continue weaning oxygen -pulmonary following -continue solumedrol and bronchodilators (13) Uremia -patient on steroids -also with slight decrease in H/H -will check stool for occult blood -add protonix
[2017-05-17] MEDS: methylPREDNISolone NA SUCC 40 MG/1 ML VIAL IVPB SCH ×2 (10:51→21:56)
[2017-05-17] MEDS: ENOXAPARIN NA (PORCINE) 80 MG/0.8 ML DISP.SYRIN SQ SCH ×2 (10:52→21:58)
[2017-05-17] MEDS: BRIMONIDINE TARTRATE 0.15% OPHTHALMIC 5 ML BOTTLE OD SCH ×2 (10:52→22:15)
[2017-05-17] MEDS: TIOTROPIUM BROMIDE 18 MCG/INH (DEVICE W/ 5 CAPSULES) IH SCH (10:55)
[2017-05-17] MEDS: PANTOPRAZOLE 40 MG TABLET (FP) PO SCH (10:56)
--- NOTE | 2017-05-17 13:33 | PN ---
Progress Note, Physician History of Present Illness: pulmonary awake,confused,-resp distress . - Current Medication List Current Medications: Active Medications Acetaminophen (Tylenol -) 650 mg PO Q6H PRN PRN Reason: FEVER OR PAIN Al Hydroxide/Mg Hydroxide (Mylanta Oral Suspension -) 30 ml PO Q6H PRN PRN Reason: INDIGESTION Last Admin: 05/13/17 13:00 Dose: 30 ml Ascorbic Acid (Vitamin C -) 500 mg PO HS [facility] Last Admin: 05/16/17 21:37 Dose: Not Given Atorvastatin Calcium (Lipitor -) 10 mg PO HS [facility] Last Admin: 05/16/17 21:37 Dose: Not Given Brimonidine Tartrate (Alphagan 0.15% -) 1 drop OD BID [facility] Last Admin: 05/17/17 10:52 Dose: 1 drop Cholecalciferol (Vitamin D3 -) 1,000 unit PO DAILY [facility] Last Admin: 05/17/17 10:15 Dose: Not Given Docusate Sodium (Colace -) 200 mg PO HS [facility] Last Admin: 05/16/17 21:37 Dose: Not Given Duloxetine HCl (Cymbalta -) 60 mg PO HS [facility] Last Admin: 05/16/17 21:37 Dose: Not Given Enoxaparin Sodium (Lovenox -) 70 mg SQ BID [facility] Last Admin: 05/17/17 10:52 Dose: 70 mg Fenofibric Acid (Trilipix -) 135 mg PO DAILY [facility] Last Admin: 05/17/17 10:13 Dose: Not Given Fluticasone Propionate (Flonase -) 2 spray NS DAILY [facility] Last Admin: 05/17/17 10:12 Dose: Not Given Gabapentin (Neurontin -) 600 mg PO BID [facility] Last Admin: 05/14/17 10:23 Dose: 600 mg Sodium Chloride (Normal Saline -) 1,000 mls @ 50 mls/hr IV ASDIR [facility] Last Admin: 05/17/17 02:47 Dose: 50 mls/hr Meropenem 1 gm/ Dextrose 100 mls @ 100 mls/hr IVPB Q8H-IV MICHAEL PRN Reason: Protocol Last Admin: 05/17/17 11:30 Dose: 100 mls/hr Vancomycin HCl 750 mg/ (Dextrose) 250 mls @ 250 mls/hr IVPB DAILY@1500 [facility] Last Admin: 05/16/17 15:31 Dose: 250 mls/hr Lactobacillus Acidophilus (Bacid -) 1 tab PO DAILY [facility] Last Admin: 05/17/17 10:10 Dose: Not Given Levothyroxine Sodium (Synthroid -) 50 mcg PO DAILY@0700 [facility] Last Admin: 05/17/17 06:09 Dose: Not Given Methylprednisolone Sodium Succinate (Solu-Medrol -) 40 mg IVPB BID [facility] Last Admin: 05/17/17 10:51 Dose: 40 mg Metoprolol Tartrate (Lopressor -) 12.5 mg PO BID [facility] Last Admin: 05/17/17 10:13 Dose: Not Given Slow Release Ferrous Sulfate (45mg Elemental Feso4) 1 each PO BID [facility] Last Admin: 05/17/17 10:13 Dose: Not Given Pantoprazole Sodium (Protonix -) 40 mg PO DAILY [facility] Last Admin: 05/17/17 10:56 Dose: Not Given Ranitidine HCl (Zantac -) 150 mg PO BID [facility] Last Admin: 05/17/17 10:15 Dose: Not Given Senna (Senna -) 2 tab PO DAILY [facility] Last Admin: 05/17/17 10:13 Dose: Not Given Tamsulosin HCl (Flomax -) 0.4 mg PO DAILY@0830 [facility] Last Admin: 05/17/17 10:07 Dose: Not Given Tiotropium [place] (Spiriva -) 1 puff IH DAILY [facility] Last Admin: 05/17/17 10:55 Dose: 1 puff - Objective Vital Signs: Vital Signs Temperature 97.8 F 05/17/17 06:00 Pulse Rate 87 05/17/17 06:00 Respiratory Rate 22 05/17/17 06:00 Blood Pressure 140/71 05/17/17 06:00 O2 Sat by Pulse Oximetry (%) 97 05/17/17 02:58 Constitutional: Yes: Well Nourished, Calm Eyes: Yes: WNL HENT: Yes: WNL Neck: Yes: WNL Cardiovascular: Yes: Pulse Irregular, S1, S2 Respiratory: Yes: Diminished, Rales (few bibasilar crackles) Gastrointestinal: Yes: Normal Bowel Sounds, Soft Extremities: Yes: WNL Edema: No Labs: CBC, BMP 05/17/17 06:00 05/17/17 06:00 Assessment/Plan Problem List - Problems (1) Shortness of breath Code(s): R06.02 - SHORTNESS OF BREATH (2) Atrial fibrillation Code(s): I48.91 - UNSPECIFIED ATRIAL FIBRILLATION (3) CHF (congestive heart failure) Code(s): I50.9 - HEART FAILURE, UNSPECIFIED (4) HTN (hypertension) Code(s): I10 - ESSENTIAL (PRIMARY) HYPERTENSION (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
[2017-05-17] MEDS: VANCOMYCIN 750 MG in DEXTROSE 5%-WATER - 250 ML IVPB SCH (15:26)
--- NOTE | 2017-05-17 16:51 | PN ---
Progress Note, Physician History of Present Illness: patient looks and feels much better no complaints - Current Medication List Current Medications: Active Medications Acetaminophen (Tylenol -) 650 mg PO Q6H PRN PRN Reason: FEVER OR PAIN Al Hydroxide/Mg Hydroxide (Mylanta Oral Suspension -) 30 ml PO Q6H PRN PRN Reason: INDIGESTION Last Admin: 05/13/17 13:00 Dose: 30 ml Ascorbic Acid (Vitamin C -) 500 mg PO HS [facility] Last Admin: 05/16/17 21:37 Dose: Not Given Atorvastatin Calcium (Lipitor -) 10 mg PO HS [facility] Last Admin: 05/16/17 21:37 Dose: Not Given Brimonidine Tartrate (Alphagan 0.15% -) 1 drop OD BID [facility] Last Admin: 05/17/17 10:52 Dose: 1 drop Cholecalciferol (Vitamin D3 -) 1,000 unit PO DAILY [facility] Last Admin: 05/17/17 10:15 Dose: Not Given Docusate Sodium (Colace -) 200 mg PO [facility] Last Admin: 05/16/17 21:37 Dose: Not Given Duloxetine HCl (Cymbalta -) 60 mg PO HS [facility] Last Admin: 05/16/17 21:37 Dose: Not Given Enoxaparin Sodium (Lovenox -) 70 mg SQ BID [facility] Last Admin: 05/17/17 10:52 Dose: 70 mg Fenofibric Acid (Trilipix -) 135 mg PO DAILY [facility] Last Admin: 05/17/17 10:13 Dose: Not Given Fluticasone Propionate (Flonase -) 2 spray NS DAILY [facility] Last Admin: 05/17/17 10:12 Dose: Not Given Gabapentin (Neurontin -) 600 mg PO BID [facility] Last Admin: 05/14/17 10:23 Dose: 600 mg Sodium Chloride (Normal Saline -) 1,000 mls @ 50 mls/hr IV ASDIR [facility] Last Admin: 05/17/17 02:47 Dose: 50 mls/hr Meropenem 1 gm/ Dextrose 100 mls @ 100 mls/hr IVPB Q8H-IV MICHAEL PRN Reason: Protocol Last Admin: 05/17/17 11:30 Dose: 100 mls/hr Vancomycin HCl 750 mg/ (Dextrose) 250 mls @ 250 mls/hr IVPB DAILY@1500 [facility] Last Admin: 05/17/17 15:26 Dose: 250 mls/hr Lactobacillus Acidophilus (Bacid -) 1 tab PO DAILY [facility] Last Admin: 05/17/17 10:10 Dose: Not Given Levothyroxine Sodium (Synthroid -) 50 mcg PO DAILY@0700 [facility] Last Admin: 05/17/17 06:09 Dose: Not Given Methylprednisolone Sodium Succinate (Solu-Medrol -) 40 mg IVPB BID [facility] Last Admin: 05/17/17 10:51 Dose: 40 mg Metoprolol Tartrate (Lopressor -) 12.5 mg PO BID [facility] Last Admin: 05/17/17 10:13 Dose: Not Given Slow Release Ferrous Sulfate (45mg Elemental Feso4) 1 each PO BID [facility] Last Admin: 05/17/17 10:13 Dose: Not Given Pantoprazole Sodium (Protonix -) 40 mg PO DAILY [facility] Last Admin: 05/17/17 10:56 Dose: Not Given Ranitidine HCl (Zantac -) 150 mg PO BID [facility] Last Admin: 05/17/17 10:15 Dose: Not Given Senna (Senna -) 2 tab PO DAILY [facility] Last Admin: 05/17/17 10:13 Dose: Not Given Tamsulosin HCl (Flomax -) 0.4 mg PO DAILY@0830 [facility] Last Admin: 05/17/17 10:07 Dose: Not Given Tiotropium [place] (Spiriva -) 1 puff IH DAILY [facility] Last Admin: 05/17/17 10:55 Dose: 1 puff - Objective Vital Signs: Vital Signs Temperature 98.7 F 05/17/17 16:01 Pulse Rate 91 H 05/17/17 16:01 Respiratory Rate 16 05/17/17 16:01 Blood Pressure 150/89 05/17/17 16:01 O2 Sat by Pulse Oximetry (%) 97 05/17/17 02:58 Constitutional: Yes: No Distress, Calm Cardiovascular: Yes: Regular Rate and Rhythm Respiratory: Yes: Poor Air Entry, Rhonchi Gastrointestinal: Yes: Normal Bowel Sounds, Soft Musculoskeletal: Yes: WNL Extremities: Yes: WNL Neurological: Yes: Alert, Oriented Psychiatric: Yes: Alert, Oriented Labs: CBC, BMP 05/17/17 06:00 05/17/17 06:00 Assessment/Plan Problem List - Problems (1) Pneumonia Code(s): J18.9 - PNEUMONIA, UNSPECIFIED ORGANISM Qualifiers: Laterality: right Lung location: lower lobe of lung (2) Alkalosis, metabolic Code(s): E87.3 - ALKALOSIS (3) Atrial fibrillation Code(s): I48.91 - UNSPECIFIED ATRIAL FIBRILLATION Qualifiers: Atrial fibrillation type: chronic Qualified Code(s): I48.2 - Chronic atrial fibrillation (4) CHF (congestive heart failure) Code(s): I50.9 - HEART FAILURE, UNSPECIFIED Qualifiers: Congestive heart failure type: unspecified congestive heart failure type Congestive heart failure chronicity: chronic Qualified Code(s): I50.9 - Heart failure, unspecified (5) GERD (gastroesophageal reflux disease) Code(s): K21.9 - GASTRO-ESOPHAGEAL REFLUX DISEASE WITHOUT ESOPHAGITIS (6) HTN (hypertension) Code(s): I10 - ESSENTIAL (PRIMARY) HYPERTENSION (7) Hyperlipemia Code(s): E78.5 - HYPERLIPIDEMIA, UNSPECIFIED (8) Hypothyroidism Code(s): E03.9 - HYPOTHYROIDISM, UNSPECIFIED (9) PVD (peripheral vascular disease) Code(s): I73.9 - PERIPHERAL VASCULAR DISEASE, UNSPECIFIED Assessment/Plan (1) Community acquired pneumonia (2) Alkalosis, metabolic Code(s): E87.3 - ALKALOSIS (3) Atrial fibrillation Code(s): I48.91 - UNSPECIFIED ATRIAL FIBRILLATION Qualifiers: Atrial fibrillation type: chronic Qualified Code(s): I48.2 - Chronic atrial fibrillation (4) CHF (congestive heart failure) Code(s): I50.9 - HEART FAILURE, UNSPECIFIED Qualifiers: Congestive heart failure type: unspecified congestive heart failure type Congestive heart failure chronicity: chronic Qualified Code(s): I50.9 - Heart failure, unspecified (5) GERD (gastroesophageal reflux disease) Code(s): K21.9 - GASTRO-ESOPHAGEAL REFLUX DISEASE WITHOUT ESOPHAGITIS (6) HTN (hypertension) Code(s): I10 - ESSENTIAL (PRIMARY) HYPERTENSION (7) Hyperlipemia Code(s): E78.5 - HYPERLIPIDEMIA, UNSPECIFIED (8) Hypothyroidism Code(s): E03.9 - HYPOTHYROIDISM, UNSPECIFIED (9) PVD (peripheral vascular disease) Code(s): I73.9 - PERIPHERAL VASCULAR DISEASE, UNSPECIFIED plan continue abx close watch on the patient rest as per primary
[2017-05-17] MEDS: DULoxetine HCL 30 MG CAPSULE.DR (FP) PO SCH (21:56)
[2017-05-17] MEDS: ASCORBIC ACID 500 MG TABLET (FP) PO SCH (21:57)
[2017-05-17] MEDS: DOCUSATE SODIUM 100 MG CAPSULE (FP) PO SCH (21:57)
[2017-05-17] MEDS: ATORVASTATIN CA 10 MG TABLET (FP) PO SCH (21:57)
[2017-05-18] MEDS ORDERED: PT OWN MED DRAWER 7, Y5N ONE ×5 (01:15→21:32)
[2017-05-18] MEDS: MEROPENEM 1 GM in DEXTROSE 5%-WATER - 100 ML IVPB SCH ×3 (01:20→17:37)
[2017-05-18] MEDS: SODIUM CHLORIDE 1,000 ML IV SCH ×2 (06:02→21:42)
[2017-05-18] MEDS: LEVOTHYROXINE NA 50 MCG TABLET (FP) PO SCH (06:02)
[2017-05-18 07:05] LABS: BASOPHIL 0.1 % (0-2.0); MCH 35.2 pg (25.7-33.7); MCHC 33.4 g/dl (32.0-35.9); MEAN CELL VOLUME 105.2 fl (80-96); MEAN PLT VOLUME 9.7 fl (7.5-11.1); NEUTROPHILS 89.5 % (42.8-82.8); PLATELET COUNT 153 K/MM3 (134-434); RDW 16.7 % (11.9-15.9); WHITE BLOOD COUNT 3.9 K/mm3 (4.0-10.0)
--- NOTE | 2017-05-18 08:05 | PN ---
Progress Note, Physician Chief Complaint: fatigue History of Present Illness: no cp, sob, palpitations, leg swelling - Current Medication List Current Medications: Active Medications Acetaminophen (Tylenol -) 650 mg PO Q6H PRN PRN Reason: FEVER OR PAIN Al Hydroxide/Mg Hydroxide (Mylanta Oral Suspension -) 30 ml PO Q6H PRN PRN Reason: INDIGESTION Last Admin: 05/13/17 13:00 Dose: 30 ml Ascorbic Acid (Vitamin C -) 500 mg PO HS [facility] Last Admin: 05/17/17 21:57 Dose: 500 mg Atorvastatin Calcium (Lipitor -) 10 mg PO HS [facility] Last Admin: 05/17/17 21:57 Dose: 10 mg Brimonidine Tartrate (Alphagan 0.15% -) 1 drop OD BID [facility] Last Admin: 05/17/17 22:15 Dose: 1 drop Cholecalciferol (Vitamin D3 -) 1,000 unit PO DAILY [facility] Last Admin: 05/17/17 10:15 Dose: Not Given Docusate Sodium (Colace -) 200 mg PO HS [facility] Last Admin: 05/17/17 21:57 Dose: 200 mg Duloxetine HCl (Cymbalta -) 60 mg PO HS [facility] Last Admin: 05/17/17 21:56 Dose: 60 mg Enoxaparin Sodium (Lovenox -) 70 mg SQ BID [facility] Last Admin: 05/17/17 21:58 Dose: 70 mg Fenofibric Acid (Trilipix -) 135 mg PO DAILY [facility] Last Admin: 05/17/17 10:13 Dose: Not Given Fluticasone Propionate (Flonase -) 2 spray NS DAILY [facility] Last Admin: 05/17/17 10:12 Dose: Not Given Gabapentin (Neurontin -) 600 mg PO BID [facility] Last Admin: 05/14/17 10:23 Dose: 600 mg Sodium Chloride (Normal Saline -) 1,000 mls @ 50 mls/hr IV ASDIR [facility] Last Admin: 05/18/17 06:02 Dose: 50 mls/hr Meropenem 1 gm/ Dextrose 100 mls @ 100 mls/hr IVPB Q8H-IV MICHAEL PRN Reason: Protocol Last Admin: 05/18/17 01:20 Dose: 100 mls/hr Vancomycin HCl 750 mg/ (Dextrose) 250 mls @ 250 mls/hr IVPB DAILY@1500 [facility] Last Admin: 05/17/17 15:26 Dose: 250 mls/hr Lactobacillus Acidophilus (Bacid -) 1 tab PO DAILY [facility] Last Admin: 05/17/17 10:10 Dose: Not Given Levothyroxine Sodium (Synthroid -) 50 mcg PO DAILY@0700 [facility] Last Admin: 05/18/17 06:02 Dose: 50 mcg Methylprednisolone Sodium Succinate (Solu-Medrol -) 40 mg IVPB BID [facility] Last Admin: 05/17/17 21:56 Dose: 40 mg Metoprolol Tartrate (Lopressor -) 12.5 mg PO BID [facility] Last Admin: 05/17/17 22:16 Dose: 12.5 mg Slow Release Ferrous Sulfate (45mg Elemental Feso4) 1 each PO BID [facility] Last Admin: 05/17/17 21:57 Dose: 1 each Pantoprazole Sodium (Protonix -) 40 mg PO DAILY [facility] Last Admin: 05/17/17 10:56 Dose: Not Given Ranitidine HCl (Zantac -) 150 mg PO BID [facility] Last Admin: 05/17/17 21:57 Dose: 150 mg Senna (Senna -) 2 tab PO DAILY [facility] Last Admin: 05/17/17 10:13 Dose: Not Given Tamsulosin HCl (Flomax -) 0.4 mg PO DAILY@0830 [facility] Last Admin: 05/17/17 10:07 Dose: Not Given Tiotropium [place] (Spiriva -) 1 puff IH DAILY [facility] Last Admin: 05/17/17 10:55 Dose: 1 puff - Objective Vital Signs: Vital Signs Temperature 98.5 F 05/18/17 06:00 Pulse Rate 91 H 05/18/17 06:00 Respiratory Rate 16 05/18/17 06:00 Blood Pressure 141/86 05/18/17 06:00 O2 Sat by Pulse Oximetry (%) 100 05/17/17 22:00 Constitutional: Yes: Well Nourished, No Distress, Calm Cardiovascular: Yes: Regular Rate and Rhythm, S1, S2. No: Gallop, Murmur Respiratory: Yes: Regular, CTA Bilaterally. No: Accessory Muscle Use, Rales, Wheezes Extremities: No: Cold Edema: No Neurological: Yes: Alert. No: Seizure Psychiatric: No: Agitated Labs: CBC, BMP 05/18/17 06:25 Assessment/Plan echo 01/2015: mild dec lvef, ant/septal HK, nl rv size, mild bi-atrial dil, mild tr, rvsp 40-50 echo 10/2016: low nl lvef, nl lv size, nl rv, mild elena, mild mr/tr, rvsp 40-50 mibi 10/2016: no ischemia a/p: 86 Y/O Gentleman with a PMhx that includes CKD, CAD s/p pci to rca 2004 ( patent on cath 2006), PVD s/p le bypass/stents/amputations, HTN, Afib on AC, here with sob, weakness. fatigue, sob: -bnp very high, but outpt lasix has not improved his sxs and here with no signs of vol overload so does not seem that chf causing his sxs -imaging shows pna, mucus plugs, possibly aspirating, cont abx per ID afib: -had been on pradaxa but not tolerating po meds so now on lovenox -rate controlled, cont low dose bb if can tolerate po cad s/p remote pci: -stable -no signs acs -cont AC, statin. has been off bb/acei due to low bp as outpt, but started BB here for AF chronic diastolic chf: -bnp 23K (baseline 8-10K) -05/13: has been on lasix 40 po daily, wts ranging 151-157 here, suspect JVD on exam though he is asymptomatic. cxr 05/12 with mild incr interstl markings ? mild chf. given lasix 40mg IVP x 1 - 05/14: bp drop after lasix. today bicarb up to 38 and lethargic (baseline unknown to me). Would hold po lasix tomorrow, monitor for when to resume. K 4.5 , mg 2.5. can stop standing repletion. -05/15-16: no signs vol overload, cont to hold home lasix htn: -stable hld: -cont home statin anemia: -chronic, counts stable here
[2017-05-18 08:30] LABS: ANION GAP 4 (8-16); CALCIUM 8.5 mg/dL (8.5-10.1); CO2 34 mmol/L (21-32); GLUCOSE,RANDOM 165 mg/dL (74-106); MAGNESIUM 2.7 mg/dL (1.8-2.4); PHOSPHOROUS 2.8 mg/dL (2.5-4.9)
--- NOTE | 2017-05-18 09:16 | CON.ENT ---
Consult Consult Specialty:: ENT Reason for Consultation:: Dysphagia - History of Present Illness Chief Complaint: Concern of aspiration History of Present Illness: 86 yo male with long hx of dysphagia, signs of aspiration on past MBS, admitted with SOB and pneumonia. Pt had repeat MBS with pooling. Asked to see patient to evaluate airway. He is on thickened puree diet. 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: Peripheral Neuropathy Cardio/Vascular: Yes: AFIB, CAD, CHF, HTN, Hyperlipdemia Pulmonary: Yes: Pneumonia Gastrointestinal: Yes: Diverticulosis, GI Bleed, Hemorrhoids, Hiatal Hernia Renal/: Yes: Renal Inusuff Infectious Disease: Yes: Other (previous sepsis) Musculoskeletal: Yes: Osteoarthritis, Other (right foot drop) ENT: Yes: Other (dysphagia, hoarseness, ) Dermatology: Yes: Basal Cell (face), Other (Left tenriism with local extension and hematoma) - Past Surgical History Past Surgical History: Yes: Bypass (left fem-pop), CABG (x3 2004), Cholecystectomy, Joint Replacement (bilateral knees), Orchiectomy (unilateral for testicular injury at 18yrs of age) - Alcohol/Substance Use Hx Alcohol Use: No History of Substance Use: reports: None - Smoking History Smoking history: Former smoker Have you smoked in the past 12 months: No Aproximately how many cigarettes per day: 0 If you are a former smoker, when did you quit?: 1983 - Social History Usual Living Arrangement: With Spouse ADL: Support Services (In [place] post) 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) History of Recent Travel: No Home Medications - Allergies Allergies/Adverse Reactions: Allergies Allergy/AdvReac Type Severity Reaction Status Date / Time Penicillins Allergy Intermediate Rash Verified 05/08/17 14:14 - Home Medications Home Medications: Ambulatory Orders Alpha Lipoic Acid [Lipoic Acid] 200 mg PO DAILY 12/12/15 Ascorbic Acid [Vitamin C] 500 mg PO HS 12/12/15 Atorvastatin Ca [Lipitor] 10 mg PO HS 12/12/15 Brimonidine Tartrate [Alphagan 0.15% -] 1 drop OD BID 12/12/15 Cholecalciferol (Vitamin D3) [Vitamin D] 1,000 unit PO DAILY 12/12/15 Dabigatran Etexilate Mesylate [Pradaxa -] 150 mg PO BID 12/12/15 Docusate Sodium [Colace -] 200 mg PO HS 12/12/15 Duloxetine HCl [Cymbalta] 60 mg PO HS 12/12/15 Fenofibrate Nanocrystallized [Tricor] 145 mg PO DAILY 12/12/15 Ferrous Sulfate [Slow Release Iron] 45 mg PO DAILY 12/12/15 Fluticasone Prop 0.05% Nasal [Flonase -] 2 spray NS DAILY 12/12/15 Furosemide [Lasix -] 40 mg PO ASDIR 12/12/15 Levomefolate/B6/B12/Algal Oil [Metanx Capsule] 1 each PO BID 12/12/15 Levothyroxine [Synthroid -] 50 mcg PO DAILY 12/12/15 Magnesium Chloride [Magnesium Dr] 64 mg PO DAILY 12/12/15 Omeprazole [Prilosec] 40 mg PO DAILY 12/12/15 Potassium Chloride 20 meq PO DAILY 12/12/15 Sennosides [Senna Concentrate] 17.2 mg PO DAILY 12/12/15 Butenafine HCl [Mentax] 30 gm TP BID 05/08/17 Gabapentin 600 mg PO BID 05/08/17 Melatonin 3 mg PO DAILY 05/08/17 Family Disease History - Family Disease History Family Disease History: CA: Son (1 son from cancer, 1 son from alcohol abuse), Other: Father (old age), Mother (old age), Son Review of Systems - Review of Systems HENT: reports: Difficult Swallowing, Hearing Loss, Other (hoarseness) Physical Exam-ENT Vital Signs: Vital Signs Temperature 98.5 F 05/18/17 06:00 Pulse Rate 91 H 05/18/17 06:00 Respiratory Rate 16 05/18/17 06:00 Blood Pressure 141/86 05/18/17 06:00 O2 Sat by Pulse Oximetry (%) 100 05/17/17 22:00 Constitutional: Yes: No Distress, Thin Head: Yes: WNL Face: Yes: Symmetrical Eyes: Yes: WNL Nose: Yes: Other (dry, crusted mucosa, nasal O2) Nasal Passage: Yes: Pale Oral/Pharynx: Yes: Other (upper dentures, no thrush,lesions) Outer Ear: Yes: Other (s/p resection of CA, areas of crusting/lesions) Ear Canal: Yes: Cerumen Neck: Yes: Supple, Trachea Midline Neurological: Yes: Cran Nerves II-XII Intact Imaging - Results X-ray: Report Reviewed Other: Report Reviewed (Swallowing studies reviewed) Problem List - Problems (1) Dysphagia causing pulmonary aspiration with swallowing Assessment/Plan: PT with hx of dysphagia and recurrent pneumonia. No lesions or infection noted on FL. Mobile vocal cords with bowing and incomplete closure(mild) contributing to risk of aspiration. Plan as per Lizeth Jewell. Code(s): R13.19 - OTHER DYSPHAGIA Procedure Note Procedure: Fiberoptic laryngoscopy was performed after obtaining verbal consent. Topical anesthetic spray intranasally. Flexible scope passed, nasal crusting noted. Normal nasopharynx. Retained yogurt in hypopharynx. No gross lesions or signs of infection. Mobile Vocal cords with bowing and incomplete closure upon phonation.
--- NOTE | 2017-05-18 09:29 | PN ---
Progress Note (short form) - Note Progress Note: Neurology 86 year old male who presented with shortness of breath and weakness that had been progressive over several days with decreased exercise tolerance and evolving to shortness of breath at rest. He has been getting treatment for PNA and admitted for further treatment. Neurologically, I was consulted for altered mental status. At bedside, he has been awake and alert and responsive. Looks less fatigued today. CT head completed and did not show acute changes. 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 Getting ongoing pulmonary and ID treatment. ENT also evaluating regarding dysphasia. Active Medications Acetaminophen (Tylenol -) 650 mg PO Q6H PRN PRN Reason: FEVER OR PAIN Al Hydroxide/Mg Hydroxide (Mylanta Oral Suspension -) 30 ml PO Q6H PRN PRN Reason: INDIGESTION Last Admin: 05/13/17 13:00 Dose: 30 ml Ascorbic Acid (Vitamin C -) 500 mg PO HS [facility] Last Admin: 05/17/17 21:57 Dose: 500 mg Atorvastatin Calcium (Lipitor -) 10 mg PO HS [facility] Last Admin: 05/17/17 21:57 Dose: 10 mg Brimonidine Tartrate (Alphagan 0.15% -) 1 drop OD BID [facility] Last Admin: 05/17/17 22:15 Dose: 1 drop Cholecalciferol (Vitamin D3 -) 1,000 unit PO DAILY [facility] Last Admin: 05/17/17 10:15 Dose: Not Given Docusate Sodium (Colace -) 200 mg PO HS [facility] Last Admin: 05/17/17 21:57 Dose: 200 mg Duloxetine HCl (Cymbalta -) 60 mg PO HS [facility] Last Admin: 05/17/17 21:56 Dose: 60 mg Enoxaparin Sodium (Lovenox -) 70 mg SQ BID [facility] Last Admin: 05/17/17 21:58 Dose: 70 mg Fenofibric Acid (Trilipix -) 135 mg PO DAILY [facility] Last Admin: 05/17/17 10:13 Dose: Not Given Fluticasone Propionate (Flonase -) 2 spray NS DAILY [facility] Last Admin: 05/17/17 10:12 Dose: Not Given Gabapentin (Neurontin -) 600 mg PO BID [facility] Last Admin: 05/14/17 10:23 Dose: 600 mg Sodium Chloride (Normal Saline -) 1,000 mls @ 50 mls/hr IV ASDIR [facility] Last Admin: 05/18/17 06:02 Dose: 50 mls/hr Meropenem 1 gm/ Dextrose 100 mls @ 100 mls/hr IVPB Q8H-IV MICHAEL PRN Reason: Protocol Last Admin: 05/18/17 01:20 Dose: 100 mls/hr Vancomycin HCl 750 mg/ (Dextrose) 250 mls @ 250 mls/hr IVPB DAILY@1500 [facility] Last Admin: 05/17/17 15:26 Dose: 250 mls/hr Lactobacillus Acidophilus (Bacid -) 1 tab PO DAILY [facility] Last Admin: 05/17/17 10:10 Dose: Not Given Levothyroxine Sodium (Synthroid -) 50 mcg PO DAILY@0700 [facility] Last Admin: 05/18/17 06:02 Dose: 50 mcg Methylprednisolone Sodium Succinate (Solu-Medrol -) 40 mg IVPB BID [facility] Last Admin: 05/17/17 21:56 Dose: 40 mg Metoprolol Tartrate (Lopressor -) 12.5 mg PO BID [facility] Last Admin: 05/17/17 22:16 Dose: 12.5 mg Slow Release Ferrous Sulfate (45mg Elemental Feso4) 1 each PO BID [facility] Last Admin: 05/17/17 21:57 Dose: 1 each Pantoprazole Sodium (Protonix -) 40 mg PO DAILY [facility] Last Admin: 05/17/17 10:56 Dose: Not Given Ranitidine HCl (Zantac -) 150 mg PO BID [facility] Last Admin: 05/17/17 21:57 Dose: 150 mg Senna (Senna -) 2 tab PO DAILY [facility] Last Admin: 05/17/17 10:13 Dose: Not Given Tamsulosin HCl (Flomax -) 0.4 mg PO DAILY@0830 [facility] Last Admin: 05/17/17 10:07 Dose: Not Given Tiotropium [place] (Spiriva -) 1 puff IH DAILY [facility] Last Admin: 05/17/17 10:55 Dose: 1 puff Physical Examination Last Vital Signs Temp Pulse Resp BP Pulse Ox 98.5 F 91 H 16 141/86 100 05/18/17 06:00 05/18/17 06:00 05/18/17 06:00 05/18/17 06:00 05/17/17 22:00 Constitutional: Yes: Well Nourished, No Distress, Calm Eyes: Yes: Conjunctiva Clear, EOM Intact, PERRL Cardiovascular: Yes: Regular Rate and Rhythm. No: Gallop, Murmur, Rub Respiratory: Yes: Regular, CTA Bilaterally. No: Rales, Rhonchi, Wheezes Gastrointestinal: Yes: Normal Bowel Sounds, Soft. No: Distention, Tenderness Extremities: Yes: WNL Neuro: CN appear intact, no facial droop, difficult to assess dysarthria, moving extremities grossly but not participating in confrontation testing, sensory intact CBCD WBC 3.9 K/mm3 (4.0-10.0) L 05/18/17 06:25 RBC 2.76 M/mm3 (4.00-5.60) L 05/18/17 06:25 Hgb 9.7 GM/dL (11.7-16.9) L 05/18/17 06:25 Hct 29.1 % (35.4-49) L 05/18/17 06:25 MCV 105.2 fl (80-96) H 05/18/17 06:25 MCHC 33.4 g/dl (32.0-35.9) 05/18/17 06:25 RDW 16.7 % (11.9-15.9) H 05/18/17 06:25 Plt Count 153 K/MM3 (134-434) 05/18/17 06:25 MPV 9.7 fl (7.5-11.1) 05/18/17 06:25 CMP Sodium 136 mmol/L (136-145) 05/18/17 06:25 Potassium 4.7 mmol/L (3.5-5.1) 05/18/17 06:25 Chloride 98 mmol/L (98-107) 05/18/17 06:25 Carbon Dioxide 34 mmol/L (21-32) H 05/18/17 06:25 Anion Gap 4 (8-16) L 05/18/17 06:25 BUN 70 mg/dL (7-18) H 05/18/17 06:25 Creatinine 1.0 mg/dL (0.7-1.3) 05/18/17 06:25 Creat Clearance w eGFR > 60 (>60) 05/13/17 06:20 Calcium 8.5 mg/dL (8.5-10.1) 05/18/17 06:25 Total Bilirubin 0.6 mg/dL (0.2-1.0) D 05/13/17 06:20 AST 27 U/L (15-37) D 05/13/17 06:20 ALT 13 U/L (12-78) 05/13/17 06:20 Alkaline Phosphatase 43 U/L (45-117) L 05/13/17 06:20 Total Protein 5.8 g/dl (6.4-8.2) L 05/13/17 06:20 Albumin 2.8 g/dl (3.4-5.0) L 05/13/17 06:20 Imaging - Results Chest X-ray: Report Reviewed, Image Reviewed CT head reviewed Plan: 86 year old male who presented with shortness of breath and weakness that had been progressive over several days with decreased exercise tolerance and evolving to shortness of breath at rest. He has been getting treatment for PNA and admitted for further treatment. Neurologically, I was consulted for altered mental status which has gradually improved. CT head reviewed. Mental status may be secondary to ongoing respiratory dyfunction/PNA. Follow up pulmonary rec'd D/Patrice Gabapentin ENT follow up Atrial Fib rate controlled, continue pradaxa On Lasix for HTN BP control Monitor Blood pressure, avoid episodes of HTN or hypotension Monitor lytes/labs for toxic metabolic derangements
[2017-05-18] MEDS: LACTOBACILLUS ACIDOPHILUS 1 EACH TAB (FP) PO SCH (10:11)
[2017-05-18] MEDS: CHOLECALCIFEROL (VITAMIN D3) 1,000 UNIT TABLET (FP) PO SCH (10:12)
[2017-05-18] MEDS: ENOXAPARIN NA (PORCINE) 80 MG/0.8 ML DISP.SYRIN SQ SCH ×2 (10:12→21:43)
[2017-05-18] MEDS: FLUTICASONE PROP 0.05% 16 GM NASAL SPRAY NS SCH (10:12)
[2017-05-18] MEDS: METOPROLOL TARTRATE 25 MG TABLET (FP) PO SCH ×2 (10:12→21:42)
[2017-05-18] MEDS: TAMSULOSIN HCL 0.4 MG CAP.ER.24H (FP) PO SCH (10:12)
[2017-05-18] MEDS: BRIMONIDINE TARTRATE 0.15% OPHTHALMIC 5 ML BOTTLE OD SCH ×2 (10:12→21:43)
[2017-05-18] MEDS: RANITIDINE HCL 150 MG TABLET (FP) PO SCH ×2 (10:13→21:42)
[2017-05-18] MEDS: FENOFIBRIC ACID 135 MG CAP PO SCH (10:13)
[2017-05-18] MEDS: FERROUS SULFATE PO SCH ×2 (10:13→21:43)
[2017-05-18] MEDS: methylPREDNISolone NA SUCC 40 MG/1 ML VIAL IVPB SCH ×2 (10:13→21:41)
[2017-05-18] MEDS: SENNOSIDES 8.6MG TABLET (FP) PO SCH (10:13)
[2017-05-18] MEDS: PANTOPRAZOLE 40 MG TABLET (FP) PO SCH (10:13)
[2017-05-18] MEDS: TIOTROPIUM BROMIDE 18 MCG/INH (DEVICE W/ 5 CAPSULES) IH SCH (10:13)
--- NOTE | 2017-05-18 12:18 | PN ---
Progress Note (short form) - Note Progress Note: More awake today than earlier in the week. ENT consult noted. No acute events overnight. Intake & Output 05/15/17 05/16/17 05/17/17 05/18/17 23:59 23:59 23:59 23:59 Intake Total 690 750 700 700 Output Total 329 693 7679 200 Balance 140 275 -375 500 Last Vital Signs Temp Pulse Resp BP Pulse Ox 97.7 F 80 18 115/59 94 L 05/18/17 10:00 05/18/17 10:00 05/18/17 10:00 05/18/17 10:00 05/18/17 09:00 Active Medications Acetaminophen (Tylenol -) 650 mg PO Q6H PRN PRN Reason: FEVER OR PAIN Al Hydroxide/Mg Hydroxide (Mylanta Oral Suspension -) 30 ml PO Q6H PRN PRN Reason: INDIGESTION Last Admin: 05/13/17 13:00 Dose: 30 ml Ascorbic Acid (Vitamin C -) 500 mg PO HS [facility] Last Admin: 05/17/17 21:57 Dose: 500 mg Atorvastatin Calcium (Lipitor -) 10 mg PO HS [facility] Last Admin: 05/17/17 21:57 Dose: 10 mg Brimonidine Tartrate (Alphagan 0.15% -) 1 drop OD BID [facility] Last Admin: 05/18/17 10:12 Dose: 1 drop Cholecalciferol (Vitamin D3 -) 1,000 unit PO DAILY [facility] Last Admin: 05/18/17 10:12 Dose: 1,000 unit Docusate Sodium (Colace -) 200 mg PO HS [facility] Last Admin: 05/17/17 21:57 Dose: 200 mg Duloxetine HCl (Cymbalta -) 60 mg PO HS [facility] Last Admin: 05/17/17 21:56 Dose: 60 mg Enoxaparin Sodium (Lovenox -) 70 mg SQ BID [facility] Last Admin: 05/18/17 10:12 Dose: 70 mg Fenofibric Acid (Trilipix -) 135 mg PO DAILY [facility] Last Admin: 05/18/17 10:13 Dose: Not Given Fluticasone Propionate (Flonase -) 2 spray NS DAILY [facility] Last Admin: 05/18/17 10:12 Dose: 2 sprays Gabapentin (Neurontin -) 600 mg PO BID [facility] Last Admin: 05/14/17 10:23 Dose: 600 mg Sodium Chloride (Normal Saline -) 1,000 mls @ 50 mls/hr IV ASDIR [facility] Last Admin: 05/18/17 06:02 Dose: 50 mls/hr Meropenem 1 gm/ Dextrose 100 mls @ 100 mls/hr IVPB Q8H-IV MICHAEL PRN Reason: Protocol Last Admin: 05/18/17 10:12 Dose: 100 mls/hr Vancomycin HCl 750 mg/ (Dextrose) 250 mls @ 250 mls/hr IVPB DAILY@1500 [facility] Last Admin: 05/17/17 15:26 Dose: 250 mls/hr Lactobacillus Acidophilus (Bacid -) 1 tab PO DAILY [facility] Last Admin: 05/18/17 10:11 Dose: 1 tab Levothyroxine Sodium (Synthroid -) 50 mcg PO DAILY@0700 [facility] Last Admin: 05/18/17 06:02 Dose: 50 mcg Methylprednisolone Sodium Succinate (Solu-Medrol -) 40 mg IVPB BID [facility] Last Admin: 05/18/17 10:13 Dose: 40 mg Metoprolol Tartrate (Lopressor -) 12.5 mg PO BID [facility] Last Admin: 05/18/17 10:12 Dose: 12.5 mg Slow Release Ferrous Sulfate (45mg Elemental Feso4) 1 each PO BID [facility] Last Admin: 05/18/17 10:13 Dose: 1 each Pantoprazole Sodium (Protonix -) 40 mg PO DAILY [facility] Last Admin: 05/18/17 10:13 Dose: 40 mg Ranitidine HCl (Zantac -) 150 mg PO BID [facility] Last Admin: 05/18/17 10:13 Dose: 150 mg Senna (Senna -) 2 tab PO DAILY [facility] Last Admin: 05/18/17 10:13 Dose: 2 tab Tamsulosin HCl (Flomax -) 0.4 mg PO DAILY@0830 [facility] Last Admin: 05/18/17 10:12 Dose: 0.4 mg Tiotropium [place] (Spiriva -) 1 puff IH DAILY [facility] Last Admin: 05/18/17 10:13 Dose: Not Given Constitutional: Yes: Awake and responsive Eyes: Yes: WNL HENT: Yes: WNL Neck: Yes: Supple Cardiovascular: Yes: Pulse Irregular, S1, S2 Respiratory: Yes: scattered bilateral rhonchi Right > Left Gastrointestinal: Yes: Normal Bowel Sounds, Soft Extremities: Yes: WNL Edema: No Labs: Laboratory Results - last 24 hr 05/18/17 05/18/17 06:25 06:25 WBC 3.9 L RBC 2.76 L Hgb 9.7 L Hct 29.1 L MCV 105.2 H MCH 35.2 H MCHC 33.4 RDW 16.7 H Plt Count 153 MPV 9.7 Neutrophils % 89.5 H Lymphocytes % 5.0 L D Monocytes % 5.4 Eosinophils % 0.0 Basophils % 0.1 Sodium 136 Potassium 4.7 Chloride 98 Carbon Dioxide 34 H Anion Gap 4 L BUN 70 H Creatinine 1.0 Random Glucose 165 H D Calcium 8.5 Phosphorus 2.8 Magnesium 2.7 H Assessment/Plan Problem List - Problems (1) Shortness of breath Code(s): R06.02 - SHORTNESS OF BREATH (2) Atrial fibrillation Code(s): I48.91 - UNSPECIFIED ATRIAL FIBRILLATION (3) CHF (congestive heart failure) Code(s): I50.9 - HEART FAILURE, UNSPECIFIED (4) HTN (hypertension) Code(s): I10 - ESSENTIAL (PRIMARY) HYPERTENSION (5) Malignant neoplasm of skin of druze Code(s): C44.309 - UNSP MALIGNANT NEOPLASM OF SKIN OF OTHER PARTS OF FACE (6) PVD (peripheral vascular disease) Code(s): I73.9 - PERIPHERAL VASCULAR DISEASE, UNSPECIFIED 7 PNEUMONIA Assessment/Plan NC O2 with NIPPV support as needed ABX per ID Chest PT Spiriva BD TX PRN DNR/DNI For PEG Dr Boo
--- NOTE | 2017-05-18 14:08 | PN ---
Progress Note, Physician History of Present Illness: Pt afebrile, alert but weak No acute distress - Current Medication List Current Medications: Active Medications Acetaminophen (Tylenol -) 650 mg PO Q6H PRN PRN Reason: FEVER OR PAIN Al Hydroxide/Mg Hydroxide (Mylanta Oral Suspension -) 30 ml PO Q6H PRN PRN Reason: INDIGESTION Last Admin: 05/13/17 13:00 Dose: 30 ml Ascorbic Acid (Vitamin C -) 500 mg PO HS [facility] Last Admin: 05/17/17 21:57 Dose: 500 mg Atorvastatin Calcium (Lipitor -) 10 mg PO HS [facility] Last Admin: 05/17/17 21:57 Dose: 10 mg Brimonidine Tartrate (Alphagan 0.15% -) 1 drop OD BID [facility] Last Admin: 05/18/17 10:12 Dose: 1 drop Cholecalciferol (Vitamin D3 -) 1,000 unit PO DAILY [facility] Last Admin: 05/18/17 10:12 Dose: 1,000 unit Docusate Sodium (Colace -) 200 mg PO HS [facility] Last Admin: 05/17/17 21:57 Dose: 200 mg Duloxetine HCl (Cymbalta -) 60 mg PO HS [facility] Last Admin: 05/17/17 21:56 Dose: 60 mg Enoxaparin Sodium (Lovenox -) 70 mg SQ BID [facility] Last Admin: 05/18/17 10:12 Dose: 70 mg Fenofibric Acid (Trilipix -) 135 mg PO DAILY [facility] Last Admin: 05/18/17 10:13 Dose: Not Given Fluticasone Propionate (Flonase -) 2 spray NS DAILY [facility] Last Admin: 05/18/17 10:12 Dose: 2 sprays Gabapentin (Neurontin -) 600 mg PO BID [facility] Last Admin: 05/14/17 10:23 Dose: 600 mg Sodium Chloride (Normal Saline -) 1,000 mls @ 50 mls/hr IV ASDIR [facility] Last Admin: 05/18/17 06:02 Dose: 50 mls/hr Meropenem 1 gm/ Dextrose 100 mls @ 100 mls/hr IVPB Q8H-IV MICHAEL PRN Reason: Protocol Last Admin: 05/18/17 10:12 Dose: 100 mls/hr Vancomycin HCl 750 mg/ (Dextrose) 250 mls @ 250 mls/hr IVPB DAILY@1500 [facility] Last Admin: 05/17/17 15:26 Dose: 250 mls/hr Lactobacillus Acidophilus (Bacid -) 1 tab PO DAILY [facility] Last Admin: 05/18/17 10:11 Dose: 1 tab Levothyroxine Sodium (Synthroid -) 50 mcg PO DAILY@0700 [facility] Last Admin: 05/18/17 06:02 Dose: 50 mcg Methylprednisolone Sodium Succinate (Solu-Medrol -) 40 mg IVPB BID [facility] Last Admin: 05/18/17 10:13 Dose: 40 mg Metoprolol Tartrate (Lopressor -) 12.5 mg PO BID [facility] Last Admin: 05/18/17 10:12 Dose: 12.5 mg Slow Release Ferrous Sulfate (45mg Elemental Feso4) 1 each PO BID [facility] Last Admin: 05/18/17 10:13 Dose: 1 each Pantoprazole Sodium (Protonix -) 40 mg PO DAILY [facility] Last Admin: 05/18/17 10:13 Dose: 40 mg Ranitidine HCl (Zantac -) 150 mg PO BID [facility] Last Admin: 05/18/17 10:13 Dose: 150 mg Senna (Senna -) 2 tab PO DAILY [facility] Last Admin: 05/18/17 10:13 Dose: 2 tab Tamsulosin HCl (Flomax -) 0.4 mg PO DAILY@0830 [facility] Last Admin: 05/18/17 10:12 Dose: 0.4 mg Tiotropium [place] (Spiriva -) 1 puff IH DAILY [facility] Last Admin: 05/18/17 10:13 Dose: Not Given - Objective Vital Signs: Vital Signs Temperature 97.7 F 05/18/17 10:00 Pulse Rate 80 05/18/17 10:00 Respiratory Rate 18 05/18/17 10:00 Blood Pressure 115/59 05/18/17 10:00 O2 Sat by Pulse Oximetry (%) 94 L 05/18/17 09:00 Constitutional: Yes: No Distress Neck: Yes: Supple Cardiovascular: Yes: Regular Rate and Rhythm Respiratory: Yes: Other (poor inspiratory effort, scattered rhonchi) Gastrointestinal: Yes: Normal Bowel Sounds, Soft Extremities: Yes: WNL Integumentary: Yes: WNL Labs: CBC, BMP 05/18/17 06:25 05/18/17 06:25 - ....Imaging Cat Scan: Report Reviewed (chest consolidation/infiltrate) Problem List - Problems (1) Acute respiratory failure Code(s): J96.00 - ACUTE RESPIRATORY FAILURE, UNSP W HYPOXIA OR HYPERCAPNIA Qualifiers: Respiratory failure complication: hypoxia and hypercapnia Qualified Code(s): J96.01 - Acute respiratory failure with hypoxia (2) CAD (coronary artery disease) Code(s): I25.10 - ATHSCL HEART DISEASE OF [place] CORONARY ARTERY W/O ANG PCTRS (3) Dysphagia causing pulmonary aspiration with swallowing Code(s): R13.19 - OTHER DYSPHAGIA (4) Shortness of breath Code(s): R06.02 - SHORTNESS OF BREATH (5) Aspiration pneumonia Code(s): J69.0 - PNEUMONITIS DUE TO INHALATION OF FOOD AND VOMIT (6) CHF (congestive heart failure) Code(s): I50.9 - HEART FAILURE, UNSPECIFIED Qualifiers: Congestive heart failure type: unspecified congestive heart failure type Congestive heart failure chronicity: chronic Qualified Code(s): I50.9 - Heart failure, unspecified (7) Leukocytosis Code(s): D72.829 - ELEVATED WHITE BLOOD CELL COUNT, UNSPECIFIED Assessment/Plan Pt weak but afebrile, without respiratory distress continue antibiotics wbc improved, continue monitor
[2017-05-18] MEDS: VANCOMYCIN 750 MG in DEXTROSE 5%-WATER - 250 ML IVPB SCH (14:09)
--- NOTE | 2017-05-18 16:51 | PN ---
Progress Note (short form) - Note Progress Note: Subjective: The patient was seen and examined at the bedside, he is confused Current Medications Generic Name Dose Route Start Last Admin Trade Name Freq PRN Reason Stop Dose Admin Acetaminophen 650 mg 05/08/17 18:51 05/19/17 00:53 Tylenol - PO 650 mg Q6H PRN Administration FEVER OR PAIN Al Hydroxide/Mg Hydroxide 30 ml 05/13/17 12:50 05/13/17 13:00 Mylanta Oral Suspension - PO 30 ml Q6H PRN Administration INDIGESTION Ascorbic Acid 500 mg 05/08/17 22:00 05/18/17 21:42 Vitamin C - PO 500 mg HS MICHAEL Administration Atorvastatin Calcium 10 mg 05/08/17 22:00 05/18/17 21:42 Lipitor - PO 10 mg HS MICHAEL Administration Brimonidine Tartrate 1 drop 05/08/17 22:00 05/18/17 21:43 Alphagan 0.15% - OD 1 drop BID MICHAEL Administration Cholecalciferol 1,000 unit 05/09/17 10:00 05/18/17 10:12 Vitamin D3 - PO 1,000 unit DAILY MICHAEL Administration Docusate Sodium 200 mg 05/08/17 22:00 05/18/17 21:42 Colace - PO 200 mg HS MICHAEL Administration Duloxetine HCl 60 mg 05/08/17 22:00 05/18/17 21:42 Cymbalta - PO 60 mg HS MICHAEL Administration Enoxaparin Sodium 70 mg 05/15/17 22:15 05/18/17 21:43 Lovenox - SQ 70 mg BID MICHAEL Administration Fenofibric Acid 135 mg 05/09/17 10:00 05/18/17 10:13 Trilipix - PO Not Given DAILY MICHAEL Fluticasone Propionate 2 spray 05/09/17 10:00 05/18/17 10:12 Flonase - NS 2 sprays DAILY MICHAEL Administration Gabapentin 600 mg 05/08/17 22:00 05/14/17 10:23 Neurontin - PO 600 mg BID MICHAEL Administration Sodium Chloride 1,000 mls @ 50 mls/hr 05/15/17 02:00 05/19/17 01:00 Normal Saline - IV Not Given ASDIR MICHAEL Meropenem 1 gm/ Dextrose 100 mls @ 100 mls/hr 05/15/17 14:00 05/19/17 01:00 IVPB 100 mls/hr Q8H-IV MICHAEL Administration Protocol Vancomycin HCl 750 mg/ 250 mls @ 250 mls/hr 05/15/17 15:00 05/18/17 14:09 Dextrose IVPB 250 mls/hr DAILY@1500 MICHAEL Administration Lactobacillus Acidophilus 1 tab 05/10/17 11:00 05/18/17 10:11 Bacid - PO 1 tab DAILY MICHAEL Administration Levothyroxine Sodium 50 mcg 05/09/17 07:00 05/19/17 06:41 Synthroid - PO 50 mcg DAILY@0700 MICHAEL Administration Methylprednisolone Sodium Succinate 40 mg 05/15/17 22:00 05/18/17 21:41 Solu-Medrol - IVPB 40 mg BID MICHAEL Administration Metoprolol Tartrate 12.5 mg 05/14/17 22:00 05/18/17 21:42 Lopressor - PO 12.5 mg BID MICHAEL Administration Slow Release Ferrous 1 each 05/10/17 22:00 05/18/17 21:43 Sulfate (45mg PO 1 each Elemental Feso4) BID MICHAEL Administration Pantoprazole Sodium 40 mg 05/17/17 10:15 05/18/17 10:13 Protonix - PO 40 mg DAILY MICHAEL Administration Ranitidine HCl 150 mg 05/08/17 22:00 05/18/17 21:42 Zantac - PO 150 mg BID MICHAEL Administration Senna 2 tab 05/09/17 10:00 05/18/17 10:13 Senna - PO 2 tab DAILY MICHAEL Administration Tamsulosin HCl 0.4 mg 05/15/17 08:30 05/18/17 10:12 Flomax - PO 0.4 mg DAILY@0830 MICHAEL Administration Tiotropium [place] 1 puff 05/09/17 13:00 05/18/17 10:13 Spiriva - IH Not Given DAILY MICHAEL Objective: Physical Exam: General: NAD, A&Ox1 Lungs: Scattered rhonchi b/l Heart: Irregular rate, S1S2 Abd: Soft, non-tender, non-distended. Normoactive bowel sounds Ext: Warm, well-perfused. 2+ DP/PT bilaterally Laboratory Tests 05/18/17 05/18/17 06:25 06:25 WBC 3.9 L RBC 2.76 L Hgb 9.7 L Hct 29.1 L MCV 105.2 H MCH 35.2 H MCHC 33.4 RDW 16.7 H Plt Count 153 Sodium 136 Potassium 4.7 Chloride 98 Carbon Dioxide 34 H Anion Gap 4 L BUN 70 H Creatinine 1.0 Random Glucose 165 H D Calcium 8.5 Phosphorus 2.8 Magnesium 2.7 H Assessment: This is an 86 year old male with PMHx of a.fib, CAD s/p CABG, CHF, HTN, hyperlipidemia, diverticulosis, GI bleed, renal insufficiency, osteoarthritis who presented to the ED with shortness of breath. Plan: 1) ID: Community acquired pneumonia - Continue Vancomycin - Continue Meropenem - Chest PT - S/p expectoration of mucus plug - Appreciate ID consult 2) Pulmonary: Respiratory acidosis - On NC - Bipap prn - Likely 2/2 pneumonia Acute hypoxic respiratory failure - Steroid taper - Taper O2 requirements - Duonebs - Continue Spiriva - Appreciate pulmonary consult 3) Cardiology: A.fib - Rate controlled - Was on Pradaxa, however now on Lovenox as the patient was not tolerating po Chronic diastolic CHF - No evidence of volume overload at this time - Continue to hold home Lasix HTN - Continue Lopressor Hyperlipidemia - Continue Lipitor PVD - On Lovenox 4) : Acute urinary retention - Simmons catheter in place 5) Endocrine: Hypothyroidism - Continue Synthroid 6) F/E/N: - Dysphagia puree - Monitor electrolytes 7) Prophylaxis: - Lovenox 8) Dispo: - Requires continued inpatient care CODE STATUS: FULL CODE Visit type - Emergency Visit Emergency Visit: Yes ED Registration Date: 05/08/17 Care time: The patient presented to the Emergency Department on the above date and was hospitalized for further evaluation of their emergent condition. - New Patient This patient is new to me today: Yes Date on this admission: 05/19/17 - Critical Care Critical Care patient: No
[2017-05-18] MEDS: DULoxetine HCL 30 MG CAPSULE.DR (FP) PO SCH (21:42)
[2017-05-18] MEDS: ATORVASTATIN CA 10 MG TABLET (FP) PO SCH (21:42)
[2017-05-18] MEDS: ASCORBIC ACID 500 MG TABLET (FP) PO SCH (21:42)
[2017-05-18] MEDS: DOCUSATE SODIUM 100 MG CAPSULE (FP) PO SCH (21:42)
[2017-05-19] MEDS ORDERED: PT OWN MED DRAWER 7, Y5N ONE ×4 (00:50→21:37)
[2017-05-19] MEDS: MEROPENEM 1 GM in DEXTROSE 5%-WATER - 100 ML IVPB SCH ×3 (01:00→17:05)
[2017-05-19] MEDS: SODIUM CHLORIDE 1,000 ML IV SCH ×2 (01:00→15:00)
[2017-05-19 06:41] LABS: MCH 34.8 pg (25.7-33.7); MCHC 33.2 g/dl (32.0-35.9); MEAN CELL VOLUME 104.7 fl (80-96); MEAN PLT VOLUME 9.9 fl (7.5-11.1); PLATELET COUNT 124 K/MM3 (134-434); RDW 16.7 % (11.9-15.9)
[2017-05-19] MEDS: LEVOTHYROXINE NA 50 MCG TABLET (FP) PO SCH (06:41)
[2017-05-19 07:09] LABS: ALBUMIN 2.6 g/dl (3.4-5.0); ANION GAP 3 (8-16); CALCIUM 8.9 mg/dL (8.5-10.1); CO2 35 mmol/L (21-32); GLUCOSE,RANDOM 111 mg/dL (74-106); SGPT/ALT 15 U/L (12-78)
[2017-05-19 07:11] LABS: ALK PHOS 31 U/L (45-117); BILIRUBIN,TOTAL 0.8 mg/dL (0.2-1.0); CREATININE 0.8 mg/dL (0.7-1.3); SGOT/AST 46 U/L (15-37); TOT PROT 5.6 g/dl (6.4-8.2)
--- NOTE | 2017-05-19 09:16 | PN ---
Progress Note, Physician Chief Complaint: weakness, pna History of Present Illness: confused this am, suzie vest on. denies cp, cough, dizzy. he's not sure about sob though breathing comfortably lying flat - Current Medication List Current Medications: Active Medications Acetaminophen (Tylenol -) 650 mg PO Q6H PRN PRN Reason: FEVER OR PAIN Last Admin: 05/19/17 00:53 Dose: 650 mg Al Hydroxide/Mg Hydroxide (Mylanta Oral Suspension -) 30 ml PO Q6H PRN PRN Reason: INDIGESTION Last Admin: 05/13/17 13:00 Dose: 30 ml Ascorbic Acid (Vitamin C -) 500 mg PO HS [facility] Last Admin: 05/18/17 21:42 Dose: 500 mg Atorvastatin Calcium (Lipitor -) 10 mg PO HS [facility] Last Admin: 05/18/17 21:42 Dose: 10 mg Brimonidine Tartrate (Alphagan 0.15% -) 1 drop OD BID [facility] Last Admin: 05/18/17 21:43 Dose: 1 drop Cholecalciferol (Vitamin D3 -) 1,000 unit PO DAILY [facility] Last Admin: 05/18/17 10:12 Dose: 1,000 unit Docusate Sodium (Colace -) 200 mg PO HS [facility] Last Admin: 05/18/17 21:42 Dose: 200 mg Duloxetine HCl (Cymbalta -) 60 mg PO HS [facility] Last Admin: 05/18/17 21:42 Dose: 60 mg Enoxaparin Sodium (Lovenox -) 70 mg SQ BID [facility] Last Admin: 05/18/17 21:43 Dose: 70 mg Fenofibric Acid (Trilipix -) 135 mg PO DAILY [facility] Last Admin: 05/18/17 10:13 Dose: Not Given Fluticasone Propionate (Flonase -) 2 spray NS DAILY [facility] Last Admin: 05/18/17 10:12 Dose: 2 sprays Gabapentin (Neurontin -) 600 mg PO BID [facility] Last Admin: 05/14/17 10:23 Dose: 600 mg Sodium Chloride (Normal Saline -) 1,000 mls @ 50 mls/hr IV ASDIR MICHAEL Last Admin: 05/19/17 01:00 Dose: Not Given Meropenem 1 gm/ Dextrose 100 mls @ 100 mls/hr IVPB Q8H-IV MICHAEL PRN Reason: Protocol Last Admin: 05/19/17 01:00 Dose: 100 mls/hr Vancomycin HCl 750 mg/ (Dextrose) 250 mls @ 250 mls/hr IVPB DAILY@1500 [facility] Last Admin: 05/18/17 14:09 Dose: 250 mls/hr Lactobacillus Acidophilus (Bacid -) 1 tab PO DAILY [facility] Last Admin: 05/18/17 10:11 Dose: 1 tab Levothyroxine Sodium (Synthroid -) 50 mcg PO DAILY@0700 [facility] Last Admin: 05/19/17 06:41 Dose: 50 mcg Methylprednisolone Sodium Succinate (Solu-Medrol -) 40 mg IVPB BID [facility] Last Admin: 05/18/17 21:41 Dose: 40 mg Metoprolol Tartrate (Lopressor -) 12.5 mg PO BID [facility] Last Admin: 05/18/17 21:42 Dose: 12.5 mg Slow Release Ferrous Sulfate (45mg Elemental Feso4) 1 each PO BID [facility] Last Admin: 05/18/17 21:43 Dose: 1 each Pantoprazole Sodium (Protonix -) 40 mg PO DAILY [facility] Last Admin: 05/18/17 10:13 Dose: 40 mg Ranitidine HCl (Zantac -) 150 mg PO BID [facility] Last Admin: 05/18/17 21:42 Dose: 150 mg Senna (Senna -) 2 tab PO DAILY [facility] Last Admin: 05/18/17 10:13 Dose: 2 tab Tamsulosin HCl (Flomax -) 0.4 mg PO DAILY@0830 [facility] Last Admin: 05/18/17 10:12 Dose: 0.4 mg Tiotropium [place] (Spiriva -) 1 puff IH DAILY [facility] Last Admin: 05/18/17 10:13 Dose: Not Given - Objective Vital Signs: Vital Signs Temperature 97.6 F 05/19/17 03:00 Pulse Rate 72 05/19/17 03:00 Respiratory Rate 18 05/19/17 03:00 Blood Pressure 128/64 05/19/17 03:00 O2 Sat by Pulse Oximetry (%) 95 05/18/17 23:36 Constitutional: Yes: Well Nourished, No Distress, Calm Cardiovascular: Yes: Pulse Irregular, S1, S2. No: Gallop, Murmur Extremities: No: Cold Edema: No Neurological: Yes: Alert. No: Seizure Psychiatric: No: Agitated Labs: CBC, BMP 05/19/17 06:15 05/19/17 06:15 Assessment/Plan echo 05/19: mild, global LV hypo; nl RV; mild MR; mild ao root dilation (no RVSP) echo 10/2016: low nl lvef, nl lv size, nl rv, mild elena, mild mr/tr, rvsp 40-50 Echo mibi 10/2016: no ischemia a/p: 86 Y/O Gentleman with a PMhx that includes CKD, CAD s/p pci to rca 2004 ( patent on cath 2006), PVD s/p le bypass/stents/amputations, HTN, Afib on AC, here with sob, weakness. fatigue, sob: -bnp very high, but outpt lasix has not improved his sxs and here with no signs of vol overload so does not seem that chf causing his sxs -imaging shows pna, mucus plugs, possibly aspirating, cont abx per ID afib: -had been on pradaxa but not tolerating po meds so now on lovenox -rate controlled, cont low dose bb if can tolerate po cad s/p remote pci: -stable -no signs acs -cont AC, statin. has been off bb/acei due to low bp as outpt, but started BB here for AF chronic diastolic chf: -bnp 23K (baseline 8-10K) -05/13: has been on lasix 40 po daily, wts ranging 151-157 here, suspect JVD on exam though he is asymptomatic. cxr 05/12 with mild incr interstl markings ? mild chf. given lasix 40mg IVP x 1 - 05/14: bp drop after lasix. today bicarb up to 38 and lethargic (baseline unknown to me). Would hold po lasix tomorrow, monitor for when to resume. K 4.5 , mg 2.5. can stop standing repletion. -05/15-: no signs vol overload, cont to hold home lasix htn: -stable hld: -cont home statin anemia: -chronic, counts stable here
--- NOTE | 2017-05-19 09:20 | PN ---
Progress Note (short form) - Note Progress Note: Subjective: The patient was seen and examined at the bedside, he is confused and trying to get out of bed. 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 [employer] Current Medications Generic Name Dose Route Start Last Admin Trade Name Freq PRN Reason Stop Dose Admin Acetaminophen 650 mg 05/08/17 18:51 05/19/17 00:53 Tylenol - PO 650 mg Q6H PRN Administration FEVER OR PAIN Al Hydroxide/Mg Hydroxide 30 ml 05/13/17 12:50 05/13/17 13:00 Mylanta Oral Suspension - PO 30 ml Q6H PRN Administration INDIGESTION Ascorbic Acid 500 mg 05/08/17 22:00 05/18/17 21:42 Vitamin C - PO 500 mg HS MICHAEL Administration Atorvastatin Calcium 10 mg 05/08/17 22:00 05/18/17 21:42 Lipitor - PO 10 mg HS MICHAEL Administration Brimonidine Tartrate 1 drop 05/08/17 22:00 05/18/17 21:43 Alphagan 0.15% - OD 1 drop BID MICHAEL Administration Cholecalciferol 1,000 unit 05/09/17 10:00 05/18/17 10:12 Vitamin D3 - PO 1,000 unit DAILY MICHAEL Administration Docusate Sodium 200 mg 05/08/17 22:00 05/18/17 21:42 Colace - PO 200 mg HS MICHAEL Administration Duloxetine HCl 60 mg 05/08/17 22:00 05/18/17 21:42 Cymbalta - PO 60 mg HS MICHAEL Administration Enoxaparin Sodium 70 mg 05/15/17 22:15 05/18/17 21:43 Lovenox - SQ 70 mg BID MICHAEL Administration Fenofibric Acid 135 mg 05/09/17 10:00 05/18/17 10:13 Trilipix - PO Not Given DAILY MICHAEL Fluticasone Propionate 2 spray 05/09/17 10:00 05/18/17 10:12 Flonase - NS 2 sprays DAILY MICHAEL Administration Gabapentin 600 mg 05/08/17 22:00 05/14/17 10:23 Neurontin - PO 600 mg BID MICHAEL Administration Sodium Chloride 1,000 mls @ 50 mls/hr 05/15/17 02:00 05/19/17 01:00 Normal Saline - IV Not Given ASDIR MICHAEL Meropenem 1 gm/ Dextrose 100 mls @ 100 mls/hr 05/15/17 14:00 05/19/17 01:00 IVPB 100 mls/hr Q8H-IV MICHAEL Administration Protocol Vancomycin HCl 750 mg/ 250 mls @ 250 mls/hr 05/15/17 15:00 05/18/17 14:09 Dextrose IVPB 250 mls/hr DAILY@1500 MICHAEL Administration Lactobacillus Acidophilus 1 tab 05/10/17 11:00 05/18/17 10:11 Bacid - PO 1 tab DAILY MICHAEL Administration Levothyroxine Sodium 50 mcg 05/09/17 07:00 05/19/17 06:41 Synthroid - PO 50 mcg DAILY@0700 MICHAEL Administration Methylprednisolone Sodium Succinate 40 mg 05/15/17 22:00 05/18/17 21:41 Solu-Medrol - IVPB 40 mg BID MICHAEL Administration Metoprolol Tartrate 12.5 mg 05/14/17 22:00 05/18/17 21:42 Lopressor - PO 12.5 mg BID MICHAEL Administration Slow Release Ferrous 1 each 05/10/17 22:00 05/18/17 21:43 Sulfate (45mg PO 1 each Elemental Feso4) BID MICHAEL Administration Pantoprazole Sodium 40 mg 05/17/17 10:15 05/18/17 10:13 Protonix - PO 40 mg DAILY MICHAEL Administration Ranitidine HCl 150 mg 05/08/17 22:00 05/18/17 21:42 Zantac - PO 150 mg BID MICHAEL Administration Senna 2 tab 05/09/17 10:00 05/18/17 10:13 Senna - PO 2 tab DAILY MICHAEL Administration Tamsulosin HCl 0.4 mg 05/15/17 08:30 05/18/17 10:12 Flomax - PO 0.4 mg DAILY@0830 MICHAEL Administration Tiotropium [place] 1 puff 05/09/17 13:00 05/18/17 10:13 Spiriva - IH Not Given DAILY [facility] Objective: Vital Signs Period Temp Pulse Resp BP Sys/Mitchell Pulse Ox Last 24 Hr 97.6 F-98 F 72-84 18-20 109-128/58-65 95 Physical Exam: General: NAD, A&Ox1 Lungs: Scattered rhonchi b/l Heart: Irregular rate, S1S2 Abd: Soft, non-tender, non-distended. Normoactive bowel sounds Ext: Warm, well-perfused. 2+ DP/PT bilaterally CBCD WBC 3.0 K/mm3 (4.0-10.0) L 05/19/17 06:15 RBC 2.60 M/mm3 (4.00-5.60) L 05/19/17 06:15 Hgb 9.0 GM/dL (11.7-16.9) L 05/19/17 06:15 Hct 27.2 % (35.4-49) L 05/19/17 06:15 MCV 104.7 fl (80-96) H 05/19/17 06:15 MCHC 33.2 g/dl (32.0-35.9) 05/19/17 06:15 RDW 16.7 % (11.9-15.9) H 05/19/17 06:15 Plt Count 124 K/MM3 (134-434) L 05/19/17 06:15 MPV 9.9 fl (7.5-11.1) 05/19/17 06:15 CMP Sodium 138 mmol/L (136-145) 05/19/17 06:15 Potassium 4.7 mmol/L (3.5-5.1) 05/19/17 06:15 Chloride 100 mmol/L (98-107) 05/19/17 06:15 Carbon Dioxide 35 mmol/L (21-32) H 05/19/17 06:15 Anion Gap 3 (8-16) L 05/19/17 06:15 BUN 65 mg/dL (7-18) H 05/19/17 06:15 Creatinine 0.8 mg/dL (0.7-1.3) 05/19/17 06:15 Creat Clearance w eGFR > 60 (>60) 05/19/17 06:15 Random Glucose 111 mg/dL (74-106) H D 05/19/17 06:15 Calcium 8.9 mg/dL (8.5-10.1) 05/19/17 06:15 Total Bilirubin 0.8 mg/dL (0.2-1.0) D 05/19/17 06:15 AST 46 U/L (15-37) H D 05/19/17 06:15 ALT 15 U/L (12-78) 05/19/17 06:15 Alkaline Phosphatase 31 U/L (45-117) L D 05/19/17 06:15 Total Protein 5.6 g/dl (6.4-8.2) L 05/19/17 06:15 Albumin 2.6 g/dl (3.4-5.0) L 05/19/17 06:15 CARDIAC ENZYMES Creatine Kinase 24 IU/L (39-308) L 05/08/17 15:23 Troponin I 0.06 ng/ml (0.00-0.05) H 05/09/17 14:00 Microbiology 05/15/17 20:45 Rectal Swab VRE Culture - Final Group D Strep Or Entero Coccus 05/16/17 11:30 Sputum - Expectorated Gram Stain - Final 05/16/17 11:30 Sputum - Expectorated Sputum Culture - Final Yeast Like Organism 05/10/17 11:20 Blood - Peripheral Venous Blood Culture - Final NO GROWTH AFTER 5 DAYS INCUBATION 05/10/17 11:15 Blood - Peripheral Venous Blood Culture - Final NO GROWTH AFTER 5 DAYS INCUBATION 05/10/17 12:02 Urine For Antigen Detection Legionella Antigen - Final 05/10/17 12:02 Urine For Antigen Detection Streptococcus pneumoniae Antigen (M - Final 05/09/17 13:00 Nares - Mrsa Screen - Right MRSA Screen - Final NO MRSA ISOLATED 05/09/17 13:00 Nares - Mrsa Screen - Left MRSA Screen - Final NO MRSA ISOLATED Assessment: This is an 86 year old male with PMHx of a.fib, CAD s/p CABG, CHF, HTN, hyperlipidemia, diverticulosis, GI bleed, renal insufficiency, osteoarthritis who presented to the ED with shortness of breath. Plan: 1) ID: Community acquired pneumonia - Continue Vancomycin - Continue Meropenem - Chest PT - S/p expectoration of mucus plug - Appreciate ID consult 2) Pulmonary: Respiratory acidosis - On NC - Bipap prn - Likely 2/2 pneumonia Acute hypoxic respiratory failure - Steroid taper - Taper O2 requirements - Duonebs - Continue Spiriva - Appreciate pulmonary consult 3) Cardiology: A.fib - Rate controlled - Was on Pradaxa, however now on Lovenox as the patient was not tolerating po Chronic diastolic CHF - No evidence of volume overload at this time - Continue to hold home Lasix HTN - Continue Lopressor Hyperlipidemia - Continue Lipitor PVD - On Lovenox 4) : Acute urinary retention - Simmons catheter in place 5) Endocrine: Hypothyroidism - Continue Synthroid 6) F/E/N: - Dysphagia puree - Monitor electrolytes 7) Prophylaxis: - Lovenox 8) Dispo: - Requires continued inpatient care CODE STATUS: FULL CODE Visit type - Emergency Visit Emergency Visit: Yes ED Registration Date: 05/08/17 Care time: The patient presented to the Emergency Department on the above date and was hospitalized for further evaluation of their emergent condition. - New Patient This patient is new to me today: No - Critical Care Critical Care patient: No
[2017-05-19] MEDS: ENOXAPARIN NA (PORCINE) 80 MG/0.8 ML DISP.SYRIN SQ SCH ×2 (10:22→21:40)
[2017-05-19] MEDS: methylPREDNISolone NA SUCC 40 MG/1 ML VIAL IVPB SCH (10:23)
[2017-05-19] MEDS: METOPROLOL TARTRATE 25 MG TABLET (FP) PO SCH ×2 (10:29→21:39)
[2017-05-19] MEDS: FLUTICASONE PROP 0.05% 16 GM NASAL SPRAY NS SCH (10:30)
[2017-05-19] MEDS: CHOLECALCIFEROL (VITAMIN D3) 1,000 UNIT TABLET (FP) PO SCH (10:30)
[2017-05-19] MEDS: PANTOPRAZOLE 40 MG TABLET (FP) PO SCH (10:31)
[2017-05-19] MEDS: TAMSULOSIN HCL 0.4 MG CAP.ER.24H (FP) PO SCH (10:31)
[2017-05-19] MEDS: SENNOSIDES 8.6MG TABLET (FP) PO SCH (10:31)
[2017-05-19] MEDS: LACTOBACILLUS ACIDOPHILUS 1 EACH TAB (FP) PO SCH (10:31)
[2017-05-19] MEDS: RANITIDINE HCL 150 MG TABLET (FP) PO SCH ×2 (10:31→21:39)
[2017-05-19] MEDS: FERROUS SULFATE PO SCH ×2 (10:33→21:41)
[2017-05-19] MEDS: FENOFIBRIC ACID 135 MG CAP PO SCH (10:33)
[2017-05-19] MEDS: TIOTROPIUM BROMIDE 18 MCG/INH (DEVICE W/ 5 CAPSULES) IH SCH (10:36)
[2017-05-19] MEDS: BRIMONIDINE TARTRATE 0.15% OPHTHALMIC 5 ML BOTTLE OD SCH ×2 (10:46→21:40)
--- NOTE | 2017-05-19 12:15 | PN ---
Progress Note (short form) - Note Progress Note: Patient seen and examined in Telemetry. More confused. Pat[place] vest in place. Breathing non-labored. Intake & Output 05/16/17 05/17/17 05/18/17 05/19/17 23:59 23:59 23:59 23:59 Intake Total 408 749 2993 Output Total 475 1075 950 400 Balance 275 -375 250 -400 Last Vital Signs Temp Pulse Resp BP Pulse Ox 97.2 F L 99 H 18 145/69 95 05/19/17 09:00 05/19/17 09:00 05/19/17 09:00 05/19/17 09:00 05/18/17 23:36 Active Medications Acetaminophen (Tylenol -) 650 mg PO Q6H PRN PRN Reason: FEVER OR PAIN Last Admin: 05/19/17 00:53 Dose: 650 mg Al Hydroxide/Mg Hydroxide (Mylanta Oral Suspension -) 30 ml PO Q6H PRN PRN Reason: INDIGESTION Last Admin: 05/13/17 13:00 Dose: 30 ml Ascorbic Acid (Vitamin C -) 500 mg PO HS [facility] Last Admin: 05/18/17 21:42 Dose: 500 mg Atorvastatin Calcium (Lipitor -) 10 mg PO HS [facility] Last Admin: 05/18/17 21:42 Dose: 10 mg Brimonidine Tartrate (Alphagan 0.15% -) 1 drop OD BID [facility] Last Admin: 05/19/17 10:46 Dose: 1 drop Cholecalciferol (Vitamin D3 -) 1,000 unit PO DAILY [facility] Last Admin: 05/19/17 10:30 Dose: 1,000 unit Docusate Sodium (Colace -) 200 mg PO HS [facility] Last Admin: 05/18/17 21:42 Dose: 200 mg Duloxetine HCl (Cymbalta -) 60 mg PO HS [facility] Last Admin: 05/18/17 21:42 Dose: 60 mg Enoxaparin Sodium (Lovenox -) 70 mg SQ BID [facility] Last Admin: 05/19/17 10:22 Dose: 70 mg Fenofibric Acid (Trilipix -) 135 mg PO DAILY [facility] Last Admin: 05/19/17 10:33 Dose: 135 mg Fluticasone Propionate (Flonase -) 2 spray NS DAILY [facility] Last Admin: 05/19/17 10:30 Dose: 2 sprays Gabapentin (Neurontin -) 600 mg PO BID [facility] Last Admin: 05/14/17 10:23 Dose: 600 mg Sodium Chloride (Normal Saline -) 1,000 mls @ 50 mls/hr IV ASDIR [facility] Last Admin: 05/19/17 01:00 Dose: Not Given Meropenem 1 gm/ Dextrose 100 mls @ 100 mls/hr IVPB Q8H-IV MICHAEL PRN Reason: Protocol Last Admin: 05/19/17 10:22 Dose: 100 mls/hr Vancomycin HCl 750 mg/ (Dextrose) 250 mls @ 250 mls/hr IVPB DAILY@1500 [facility] Last Admin: 05/18/17 14:09 Dose: 250 mls/hr Lactobacillus Acidophilus (Bacid -) 1 tab PO DAILY [facility] Last Admin: 05/19/17 10:31 Dose: 1 tab Levothyroxine Sodium (Synthroid -) 50 mcg PO DAILY@0700 [facility] Last Admin: 05/19/17 06:41 Dose: 50 mcg Methylprednisolone Sodium Succinate (Solu-Medrol -) 40 mg IVPB BID [facility] Last Admin: 05/19/17 10:23 Dose: 40 mg Metoprolol Tartrate (Lopressor -) 12.5 mg PO BID [facility] Last Admin: 05/19/17 10:29 Dose: 12.5 mg Slow Release Ferrous Sulfate (45mg Elemental Feso4) 1 each PO BID [facility] Last Admin: 05/19/17 10:33 Dose: 1 each Pantoprazole Sodium (Protonix -) 40 mg PO DAILY [facility] Last Admin: 05/19/17 10:31 Dose: 40 mg Ranitidine HCl (Zantac -) 150 mg PO BID [facility] Last Admin: 05/19/17 10:31 Dose: 150 mg Senna (Senna -) 2 tab PO DAILY [facility] Last Admin: 05/19/17 10:31 Dose: 2 tab Tamsulosin HCl (Flomax -) 0.4 mg PO DAILY@0830 [facility] Last Admin: 05/19/17 10:31 Dose: 0.4 mg Tiotropium [place] (Spiriva -) 1 puff IH DAILY [facility] Last Admin: 05/19/17 10:36 Dose: 1 puff Constitutional: Yes: Confused, NAD Eyes: Yes: WNL HENT: Yes: WNL Neck: Yes: Supple Cardiovascular: Yes: Pulse Irregular, S1, S2 Respiratory: Yes: scattered bilateral rhonchi Right > Left Gastrointestinal: Yes: Normal Bowel Sounds, Soft Extremities: Yes: WNL Edema: No Labs: Laboratory Results - last 24 hr 05/19/17 05/19/17 06:15 06:15 WBC 3.0 L RBC 2.60 L Hgb 9.0 L Hct 27.2 L MCV 104.7 H MCH 34.8 H MCHC 33.2 RDW 16.7 H Plt Count 124 L MPV 9.9 Sodium 138 Potassium 4.7 Chloride 100 Carbon Dioxide 35 H Anion Gap 3 L BUN 65 H Creatinine 0.8 Creat Clearance w eGFR > 60 Random Glucose 111 H D Calcium 8.9 Total Bilirubin 0.8 D AST 46 H D ALT 15 Alkaline Phosphatase 31 L D Total Protein 5.6 L Albumin 2.6 L Assessment/Plan Problem List - Problems (1) Shortness of breath Code(s): R06.02 - SHORTNESS OF BREATH (2) Atrial fibrillation Code(s): I48.91 - UNSPECIFIED ATRIAL FIBRILLATION (3) CHF (congestive heart failure) Code(s): I50.9 - HEART FAILURE, UNSPECIFIED (4) HTN (hypertension) Code(s): I10 - ESSENTIAL (PRIMARY) HYPERTENSION (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
--- NOTE | 2017-05-19 13:41 | PN ---
Progress Note, Physician History of Present Illness: Pt is alert, without acute distress but confused - Current Medication List Current Medications: Active Medications Acetaminophen (Tylenol -) 650 mg PO Q6H PRN PRN Reason: FEVER OR PAIN Last Admin: 05/19/17 00:53 Dose: 650 mg Al Hydroxide/Mg Hydroxide (Mylanta Oral Suspension -) 30 ml PO Q6H PRN PRN Reason: INDIGESTION Last Admin: 05/13/17 13:00 Dose: 30 ml Ascorbic Acid (Vitamin C -) 500 mg PO HS [facility] Last Admin: 05/18/17 21:42 Dose: 500 mg Atorvastatin Calcium (Lipitor -) 10 mg PO HS [facility] Last Admin: 05/18/17 21:42 Dose: 10 mg Brimonidine Tartrate (Alphagan 0.15% -) 1 drop OD BID [facility] Last Admin: 05/19/17 10:46 Dose: 1 drop Cholecalciferol (Vitamin D3 -) 1,000 unit PO DAILY [facility] Last Admin: 05/19/17 10:30 Dose: 1,000 unit Docusate Sodium (Colace -) 200 mg PO HS [facility] Last Admin: 05/18/17 21:42 Dose: 200 mg Duloxetine HCl (Cymbalta -) 60 mg PO HS [facility] Last Admin: 05/18/17 21:42 Dose: 60 mg Enoxaparin Sodium (Lovenox -) 70 mg SQ BID [facility] Last Admin: 05/19/17 10:22 Dose: 70 mg Fenofibric Acid (Trilipix -) 135 mg PO DAILY [facility] Last Admin: 05/19/17 10:33 Dose: 135 mg Fluticasone Propionate (Flonase -) 2 spray NS DAILY [facility] Last Admin: 05/19/17 10:30 Dose: 2 sprays Gabapentin (Neurontin -) 600 mg PO BID [facility] Last Admin: 05/14/17 10:23 Dose: 600 mg Sodium Chloride (Normal Saline -) 1,000 mls @ 50 mls/hr IV ASDIR [facility] Last Admin: 05/19/17 01:00 Dose: Not Given Meropenem 1 gm/ Dextrose 100 mls @ 100 mls/hr IVPB Q8H-IV MIHCAEL PRN Reason: Protocol Last Admin: 05/19/17 10:22 Dose: 100 mls/hr Vancomycin HCl 750 mg/ (Dextrose) 250 mls @ 250 mls/hr IVPB DAILY@1500 [facility] Last Admin: 05/18/17 14:09 Dose: 250 mls/hr Lactobacillus Acidophilus (Bacid -) 1 tab PO DAILY [facility] Last Admin: 05/19/17 10:31 Dose: 1 tab Levothyroxine Sodium (Synthroid -) 50 mcg PO DAILY@0700 [facility] Last Admin: 05/19/17 06:41 Dose: 50 mcg Methylprednisolone Sodium Succinate (Solu-Medrol -) 40 mg IVPB BID [facility] Last Admin: 05/19/17 10:23 Dose: 40 mg Metoprolol Tartrate (Lopressor -) 12.5 mg PO BID [facility] Last Admin: 05/19/17 10:29 Dose: 12.5 mg Slow Release Ferrous Sulfate (45mg Elemental Feso4) 1 each PO BID [facility] Last Admin: 05/19/17 10:33 Dose: 1 each Pantoprazole Sodium (Protonix -) 40 mg PO DAILY [facility] Last Admin: 05/19/17 10:31 Dose: 40 mg Ranitidine HCl (Zantac -) 150 mg PO BID [facility] Last Admin: 05/19/17 10:31 Dose: 150 mg Senna (Senna -) 2 tab PO DAILY [facility] Last Admin: 05/19/17 10:31 Dose: 2 tab Tamsulosin HCl (Flomax -) 0.4 mg PO DAILY@0830 [facility] Last Admin: 05/19/17 10:31 Dose: 0.4 mg Tiotropium [place] (Spiriva -) 1 puff IH DAILY [facility] Last Admin: 05/19/17 10:36 Dose: 1 puff - Objective Vital Signs: Vital Signs Temperature 97.2 F L 05/19/17 09:00 Pulse Rate 73 05/19/17 12:26 Respiratory Rate 18 05/19/17 09:00 Blood Pressure 145/69 05/19/17 09:00 O2 Sat by Pulse Oximetry (%) 98 05/19/17 12:26 Constitutional: Yes: No Distress Cardiovascular: Yes: Regular Rate and Rhythm Respiratory: Yes: Other (poor inspiratory effort, basilar decreased bs) Gastrointestinal: Yes: Normal Bowel Sounds, Soft Genitourinary: Yes: WNL Extremities: Yes: WNL Integumentary: Yes: WNL Neurological: Yes: Confusion Labs: CBC, BMP 05/19/17 06:15 09/17/17 06:15 Problem List - Problems (1) Acute respiratory failure Code(s): J96.00 - ACUTE RESPIRATORY FAILURE, UNSP W HYPOXIA OR HYPERCAPNIA Qualifiers: Respiratory failure complication: hypoxia and hypercapnia Qualified Code(s): J96.01 - Acute respiratory failure with hypoxia (2) CAD (coronary artery disease) Code(s): I25.10 - ATHSCL HEART DISEASE OF [place] CORONARY ARTERY W/O ANG PCTRS (3) Dysphagia causing pulmonary aspiration with swallowing Code(s): R13.19 - OTHER DYSPHAGIA (4) Shortness of breath Code(s): R06.02 - SHORTNESS OF BREATH (5) Aspiration pneumonia Code(s): J69.0 - PNEUMONITIS DUE TO INHALATION OF FOOD AND VOMIT (6) CHF (congestive heart failure) Code(s): I50.9 - HEART FAILURE, UNSPECIFIED Qualifiers: Congestive heart failure type: unspecified congestive heart failure type Congestive heart failure chronicity: chronic Qualified Code(s): I50.9 - Heart failure, unspecified (7) Leukocytosis Code(s): D72.829 - ELEVATED WHITE BLOOD CELL COUNT, UNSPECIFIED Assessment/Plan PNA pt afebrile, without acute distress confused continue antibiotics for now repeat cbc aspiration precautions
[2017-05-19] MEDS: VANCOMYCIN 750 MG in DEXTROSE 5%-WATER - 250 ML IVPB SCH (14:24)
[2017-05-19] MEDS ORDERED: ALBUTEROL SO4 2.5/IPRATROPIUM 0.5 INH SOL 3 ML VIAL.NEB. NEB PRN (17:58)
[2017-05-19] MEDS: ATORVASTATIN CA 10 MG TABLET (FP) PO SCH (21:39)
[2017-05-19] MEDS: DULoxetine HCL 30 MG CAPSULE.DR (FP) PO SCH (21:39)
[2017-05-19] MEDS: ASCORBIC ACID 500 MG TABLET (FP) PO SCH (21:39)
[2017-05-19] MEDS: DOCUSATE SODIUM 100 MG CAPSULE (FP) PO SCH (21:40)
[2017-05-20] MEDS ORDERED: PT OWN MED DRAWER 7, Y5N ONE ×2 (01:46→21:42)
[2017-05-20] MEDS: MEROPENEM 1 GM in DEXTROSE 5%-WATER - 100 ML IVPB SCH ×3 (01:46→17:42)
[2017-05-20] MEDS: SODIUM CHLORIDE 1,000 ML IV SCH ×2 (01:52→16:36)
[2017-05-20] MEDS: LEVOTHYROXINE NA 50 MCG TABLET (FP) PO SCH (06:43)
[2017-05-20 07:25] LABS: MCHC 33.7 g/dl (32.0-35.9); MEAN CELL VOLUME 103.6 fl (80-96); MEAN PLT VOLUME 9.8 fl (7.5-11.1); PLATELET COUNT 115 K/MM3 (134-434); RDW 16.9 % (11.9-15.9); WHITE BLOOD COUNT 7.2 K/mm3 (4.0-10.0)
[2017-05-20 07:36] LABS: ANION GAP 8 (8-16); CALCIUM 8.8 mg/dL (8.5-10.1); CO2 32 mmol/L (21-32); CREATININE 0.7 mg/dL (0.7-1.3); GLUCOSE,RANDOM 75 mg/dL (74-106)
[2017-05-20 08:26] LABS: PLATELET ESTIMATE SLT DECREASED (NORMAL)
[2017-05-20 08:27] LABS: BASOPHIL (MANUAL) 0 % (0-2.0); METAMYELOCYTE 0 % (0-2); MYELOCYTE 2 % (0-2)
[2017-05-20] MEDS: TAMSULOSIN HCL 0.4 MG CAP.ER.24H (FP) PO SCH (08:55)
--- NOTE | 2017-05-20 09:22 | PN ---
Progress Note, Physician Chief Complaint: sob History of Present Illness: very sleepy; opens eyes to voice but not communicating; calm/comfortable - Current Medication List Current Medications: Active Medications Acetaminophen (Tylenol -) 650 mg PO Q6H PRN PRN Reason: FEVER OR PAIN Last Admin: 05/19/17 00:53 Dose: 650 mg Al Hydroxide/Mg Hydroxide (Mylanta Oral Suspension -) 30 ml PO Q6H PRN PRN Reason: INDIGESTION Last Admin: 05/13/17 13:00 Dose: 30 ml Albuterol/Ipratropium (Duoneb -) 1 amp NEB Q4H PRN PRN Reason: SHORTNESS OF BREATH Ascorbic Acid (Vitamin C -) 500 mg PO HS [facility] Last Admin: 05/19/17 21:39 Dose: 500 mg Atorvastatin Calcium (Lipitor -) 10 mg PO HS [facility] Last Admin: 05/19/17 21:39 Dose: 10 mg Brimonidine Tartrate (Alphagan 0.15% -) 1 drop OD BID [facility] Last Admin: 05/19/17 21:40 Dose: 1 drop Cholecalciferol (Vitamin D3 -) 1,000 unit PO DAILY [facility] Last Admin: 05/19/17 10:30 Dose: 1,000 unit Docusate Sodium (Colace -) 200 mg PO HS [facility] Last Admin: 05/19/17 21:40 Dose: Not Given Duloxetine HCl (Cymbalta -) 60 mg PO HS [facility] Last Admin: 05/19/17 21:39 Dose: 60 mg Enoxaparin Sodium (Lovenox -) 70 mg SQ BID [facility] Last Admin: 05/19/17 21:40 Dose: 70 mg Fenofibric Acid (Trilipix -) 135 mg PO DAILY [facility] Last Admin: 05/19/17 10:33 Dose: 135 mg Fluticasone Propionate (Flonase -) 2 spray NS DAILY [facility] Last Admin: 05/19/17 10:30 Dose: 2 sprays Gabapentin (Neurontin -) 600 mg PO BID [facility] Last Admin: 05/14/17 10:23 Dose: 600 mg Sodium Chloride (Normal Saline -) 1,000 mls @ 50 mls/hr IV ASDIR [facility] Last Admin: 05/20/17 01:52 Dose: 50 mls/hr Meropenem 1 gm/ Dextrose 100 mls @ 100 mls/hr IVPB Q8H-IV MICHAEL PRN Reason: Protocol Last Admin: 05/20/17 01:46 Dose: 100 mls/hr Vancomycin HCl 750 mg/ (Dextrose) 250 mls @ 250 mls/hr IVPB DAILY@1500 [facility] Last Admin: 05/19/17 14:24 Dose: 250 mls/hr Lactobacillus Acidophilus (Bacid -) 1 tab PO DAILY [facility] Last Admin: 05/19/17 10:31 Dose: 1 tab Levothyroxine Sodium (Synthroid -) 50 mcg PO DAILY@0700 [facility] Last Admin: 05/20/17 06:43 Dose: 50 mcg Methylprednisolone Sodium Succinate (Solu-Medrol -) 40 mg IVPB DAILY [facility] Metoprolol Tartrate (Lopressor -) 12.5 mg PO BID [facility] Last Admin: 05/19/17 21:39 Dose: 12.5 mg Slow Release Ferrous Sulfate (45mg Elemental Feso4) 1 each PO BID [facility] Last Admin: 05/19/17 21:41 Dose: 1 each Pantoprazole Sodium (Protonix -) 40 mg PO DAILY [facility] Last Admin: 05/19/17 10:31 Dose: 40 mg Ranitidine HCl (Zantac -) 150 mg PO BID [facility] Last Admin: 05/19/17 21:39 Dose: 150 mg Senna (Senna -) 2 tab PO DAILY [facility] Last Admin: 05/19/17 10:31 Dose: 2 tab Tamsulosin HCl (Flomax -) 0.4 mg PO DAILY@0830 [facility] Last Admin: 05/20/17 08:55 Dose: 0.4 mg Tiotropium [place] (Spiriva -) 1 puff IH DAILY [facility] Last Admin: 05/19/17 10:36 Dose: 1 puff - Objective Vital Signs: Vital Signs Temperature 97.0 F L 05/20/17 06:00 Pulse Rate 85 05/20/17 06:00 Respiratory Rate 18 05/20/17 06:00 Blood Pressure 145/97 05/20/17 06:00 O2 Sat by Pulse Oximetry (%) 95 05/19/17 22:48 Constitutional: Yes: Well Nourished, No Distress, Calm Cardiovascular: Yes: Regular Rate and Rhythm, S1, S2. No: Gallop, Murmur Respiratory: Yes: Regular, CTA Bilaterally (anteriorly (suzie vest on)). No: Accessory Muscle Use Extremities: No: Cold Edema: No Neurological: Yes: Lethargy. No: Seizure Psychiatric: No: Agitated Labs: CBC, BMP 05/20/17 06:30 05/20/17 06:30 Assessment/Plan echo 05/19: mild, global LV hypo; nl RV; mild MR; mild ao root dilation (no RVSP) echo 10/2016: low nl lvef, nl lv size, nl rv, mild elena, mild mr/tr, rvsp 40-50 Echo mibi 10/2016: no ischemia a/p: 86 Y/O Gentleman with a PMhx that includes CKD, CAD s/p pci to rca 2004 ( patent on cath 2006), PVD s/p le bypass/stents/amputations, HTN, Afib on AC, here with sob, weakness. fatigue, sob: -bnp very high, but outpt lasix has not improved his sxs and here with no signs of vol overload so does not seem that chf causing his sxs -imaging shows pna, mucus plugs, possibly aspirating, cont abx per ID afib: -had been on pradaxa but not tolerating po meds so now on lovenox -rate controlled, cont low dose bb if can tolerate po cad s/p remote pci: -stable -no signs acs -cont AC, statin. has been off bb/acei due to low bp as outpt, but started BB here for AF chronic diastolic chf: -bnp 23K (baseline 8-10K) -05/13: has been on lasix 40 po daily, wts ranging 151-157 here, suspect JVD on exam though he is asymptomatic. cxr 05/12 with mild incr interstl markings ? mild chf. given lasix 40mg IVP x 1 - 05/14: bp drop after lasix. today bicarb up to 38 and lethargic (baseline unknown to me). Would hold po lasix tomorrow, monitor for when to resume. K 4.5 , mg 2.5. can stop standing repletion. -05/15-: no signs vol overload, cont to hold home lasix htn: -stable hld: -cont home statin anemia: -chronic, counts stable here
[2017-05-20] MEDS: METOPROLOL TARTRATE 25 MG TABLET (FP) PO SCH ×2 (09:32→21:47)
[2017-05-20] MEDS: FLUTICASONE PROP 0.05% 16 GM NASAL SPRAY NS SCH (09:32)
[2017-05-20] MEDS: ENOXAPARIN NA (PORCINE) 80 MG/0.8 ML DISP.SYRIN SQ SCH ×2 (09:33→21:46)
[2017-05-20] MEDS: TIOTROPIUM BROMIDE 18 MCG/INH (DEVICE W/ 5 CAPSULES) IH SCH (09:34)
[2017-05-20] MEDS: methylPREDNISolone NA SUCC 40 MG/1 ML VIAL IVPB SCH (09:34)
[2017-05-20] MEDS: SENNOSIDES 8.6MG TABLET (FP) PO SCH (09:34)
[2017-05-20] MEDS: FERROUS SULFATE PO SCH ×2 (09:34→21:47)
[2017-05-20] MEDS: PANTOPRAZOLE 40 MG TABLET (FP) PO SCH (09:34)
[2017-05-20] MEDS: LACTOBACILLUS ACIDOPHILUS 1 EACH TAB (FP) PO SCH (09:35)
[2017-05-20] MEDS: RANITIDINE HCL 150 MG TABLET (FP) PO SCH ×2 (09:35→21:48)
[2017-05-20] MEDS: FENOFIBRIC ACID 135 MG CAP PO SCH (09:35)
[2017-05-20] MEDS: CHOLECALCIFEROL (VITAMIN D3) 1,000 UNIT TABLET (FP) PO SCH (09:35)
[2017-05-20] MEDS: BRIMONIDINE TARTRATE 0.15% OPHTHALMIC 5 ML BOTTLE OD SCH ×2 (09:36→21:57)
--- NOTE | 2017-05-20 09:53 | PN ---
Progress Note (short form) - Note Progress Note: Neurology 86 year old male who presented with shortness of breath and weakness that had been progressive over several days with decreased exercise tolerance and evolving to shortness of breath at rest. He has been getting treatment for PNA and admitted for further treatment. Neurologically, I was consulted for altered mental status. At bedside, he has been awake and alert and responsive. Looks less fatigued today. CT head completed and did not show acute changes. 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 Having aggitation at nighttime due to Dementia, sund, had suzie vest placed. This AM, awake, cooperative, no facemask or positive airway pressure. Active Medications Acetaminophen (Tylenol -) 650 mg PO Q6H PRN PRN Reason: FEVER OR PAIN Last Admin: 05/19/17 00:53 Dose: 650 mg Al Hydroxide/Mg Hydroxide (Mylanta Oral Suspension -) 30 ml PO Q6H PRN PRN Reason: INDIGESTION Last Admin: 05/13/17 13:00 Dose: 30 ml Albuterol/Ipratropium (Duoneb -) 1 amp NEB Q4H PRN PRN Reason: SHORTNESS OF BREATH Ascorbic Acid (Vitamin C -) 500 mg PO HS [facility] Last Admin: 05/19/17 21:39 Dose: 500 mg Atorvastatin Calcium (Lipitor -) 10 mg PO HS [facility] Last Admin: 05/19/17 21:39 Dose: 10 mg Brimonidine Tartrate (Alphagan 0.15% -) 1 drop OD BID [facility] Last Admin: 05/20/17 09:36 Dose: 1 drop Cholecalciferol (Vitamin D3 -) 1,000 unit PO DAILY [facility] Last Admin: 05/20/17 09:35 Dose: 1,000 unit Docusate Sodium (Colace -) 200 mg PO HS [facility] Last Admin: 05/19/17 21:40 Dose: Not Given Duloxetine HCl (Cymbalta -) 60 mg PO HS [facility] Last Admin: 05/19/17 21:39 Dose: 60 mg Enoxaparin Sodium (Lovenox -) 70 mg SQ BID [facility] Last Admin: 05/20/17 09:33 Dose: 70 mg Fenofibric Acid (Trilipix -) 135 mg PO DAILY [facility] Last Admin: 05/20/17 09:35 Dose: 135 mg Fluticasone Propionate (Flonase -) 2 spray NS DAILY [facility] Last Admin: 05/20/17 09:32 Dose: 2 sprays Gabapentin (Neurontin -) 600 mg PO BID [facility] Last Admin: 05/14/17 10:23 Dose: 600 mg Sodium Chloride (Normal Saline -) 1,000 mls @ 50 mls/hr IV ASDIR [facility] Last Admin: 05/20/17 01:52 Dose: 50 mls/hr Meropenem 1 gm/ Dextrose 100 mls @ 100 mls/hr IVPB Q8H-IV [facility] PRN Reason: Protocol Last Admin: 05/20/17 09:38 Dose: 100 mls/hr Vancomycin HCl 750 mg/ (Dextrose) 250 mls @ 250 mls/hr IVPB DAILY@1500 [facility] Last Admin: 05/19/17 14:24 Dose: 250 mls/hr Lactobacillus Acidophilus (Bacid -) 1 tab PO DAILY [facility] Last Admin: 05/20/17 09:35 Dose: 1 tab Levothyroxine Sodium (Synthroid -) 50 mcg PO DAILY@0700 [facility] Last Admin: 05/20/17 06:43 Dose: 50 mcg Methylprednisolone Sodium Succinate (Solu-Medrol -) 40 mg IVPB DAILY [facility] Last Admin: 05/20/17 09:34 Dose: 40 mg Metoprolol Tartrate (Lopressor -) 12.5 mg PO BID [facility] Last Admin: 05/20/17 09:32 Dose: 12.5 mg Slow Release Ferrous Sulfate (45mg Elemental Feso4) 1 each PO BID [facility] Last Admin: 05/20/17 09:34 Dose: 1 each Pantoprazole Sodium (Protonix -) 40 mg PO DAILY [facility] Last Admin: 05/20/17 09:34 Dose: 40 mg Ranitidine HCl (Zantac -) 150 mg PO BID [facility] Last Admin: 05/20/17 09:35 Dose: 150 mg Senna (Senna -) 2 tab PO DAILY [facility] Last Admin: 05/20/17 09:34 Dose: 2 tab Tamsulosin HCl (Flomax -) 0.4 mg PO DAILY@0830 [facility] Last Admin: 05/20/17 08:55 Dose: 0.4 mg Tiotropium [place] (Spiriva -) 1 puff IH DAILY [facility] Last Admin: 05/20/17 09:34 Dose: 1 puff Physical Examination Vital Signs Period Temp Pulse Resp BP Sys/Mitchell Pulse Ox Last 24 Hr 97.0 F-98.0 F 73-89 18-20 118-152/72-97 95-98 Constitutional: Yes: Well Nourished, No Distress, Calm Eyes: Yes: Conjunctiva Clear, EOM Intact, PERRL Cardiovascular: Yes: Regular Rate and Rhythm. No: Gallop, Murmur, Rub Respiratory: Yes: Regular, CTA Bilaterally. No: Rales, Rhonchi, Wheezes Gastrointestinal: Yes: Normal Bowel Sounds, Soft. No: Distention, Tenderness Extremities: Yes: WNL Neuro: Awake, cooperative, CN appear intact, no facial droop, difficult to assess dysarthria, moving extremities grossly but not participating in confrontation testing, sensory intact CBCD WBC 7.2 K/mm3 (4.0-10.0) D 05/20/17 06:30 RBC 2.65 M/mm3 (4.00-5.60) L 05/20/17 06:30 Hgb 9.3 GM/dL (11.7-16.9) L 05/20/17 06:30 Hct 27.4 % (35.4-49) L 05/20/17 06:30 MCV 103.6 fl (80-96) H 05/20/17 06:30 MCHC 33.7 g/dl (32.0-35.9) 05/20/17 06:30 RDW 16.9 % (11.9-15.9) H 05/20/17 06:30 Plt Count 115 K/MM3 (134-434) L 05/20/17 06:30 MPV 9.8 fl (7.5-11.1) 05/20/17 06:30 CMP Sodium 140 mmol/L (136-145) 05/20/17 06:30 Potassium 4.6 mmol/L (3.5-5.1) 05/20/17 06:30 Chloride 100 mmol/L (98-107) 05/20/17 06:30 Carbon Dioxide 32 mmol/L (21-32) 05/20/17 06:30 Anion Gap 8 (8-16) 05/20/17 06:30 BUN 55 mg/dL (7-18) H 05/20/17 06:30 Creatinine 0.7 mg/dL (0.7-1.3) 05/20/17 06:30 Creat Clearance w eGFR > 60 (>60) 05/19/17 06:15 Calcium 8.8 mg/dL (8.5-10.1) 05/20/17 06:30 Total Bilirubin 0.8 mg/dL (0.2-1.0) D 05/19/17 06:15 AST 46 U/L (15-37) H D 05/19/17 06:15 ALT 15 U/L (12-78) 05/19/17 06:15 Alkaline Phosphatase 31 U/L (45-117) L D 05/19/17 06:15 Total Protein 5.6 g/dl (6.4-8.2) L 05/19/17 06:15 Albumin 2.6 g/dl (3.4-5.0) L 05/19/17 06:15 Imaging - Results Chest X-ray: Report Reviewed, Image Reviewed CT head reviewed Plan: 86 year old male who presented with shortness of breath and weakness that had been progressive over several days with decreased exercise tolerance and evolving to shortness of breath at rest. He has been getting treatment for PNA and admitted for further treatment. Neurologically, I was consulted for altered mental status which has gradually improved. CT head reviewed. Mental status improved and likely was due to respiratory distress Follow up pulmonary rec'd D/Patrice Gabapentin Atrial Fib rate controlled, continue pradaxa On Lasix for HTN BP control Monitor Blood pressure, avoid episodes of HTN or hypotension Aggitated at night, , continue monitoring
--- NOTE | 2017-05-20 11:33 | PN ---
Progress Note, [employer] - Note Progress Note: Appreciate ENT consult: Fiberoptic laryngoscopy was performed ....Normal nasopharynx. Retained yogurt in hypopharynx. No gross lesions or signs of infection. Mobile Vocal cords with bowing and incomplete closure upon phonation. Selected Entries 05/18/17 05/18/17 05/18/17 06:00 09:51 10:00 Breakfast 50% Lunch Supper Temperature 98.5 F 97.7 F 05/18/17 05/18/17 05/18/17 14:00 18:02 22:18 Breakfast Lunch 50% Supper 0 Temperature 98 F 05/18/17 05/19/17 05/19/17 23:36 03:00 09:00 Breakfast 25% Lunch Supper Temperature 97.7 F 97.6 F 97.2 F L 05/19/17 05/19/17 05/19/17 14:00 18:03 22:00 Breakfast Lunch 75% Supper Temperature 98.0 F 98 F 97.8 F 05/19/17 05/20/17 05/20/17 22:42 06:00 09:02 Breakfast 100% Lunch Supper 25% 75% Temperature 97.0 F L 05/20/17 10:00 Breakfast Lunch Supper Temperature 98 F Laboratory Tests 05/19/17 05/20/17 06:15 06:30 WBC 3.0 L 7.2 D Pt on thinned out pureed diet,nectar thick liquid. Reviewed MBS video with staff and family, demonstrating puree sticking in pharynx with no passage through UES. Much improved flow and passage with liquids. Suggest:STR for intensive swallowing therapy. Thinned out pureed diet maybe with added liquid ensure plus supplement for additional nourishment,,nectar thick liquid.Ensure compact. Calorie count. If insufficient po acceptance, may benefit from PEG for supplement nocturnal feedings.
--- NOTE | 2017-05-20 12:37 | PN ---
Progress Note, Physician History of Present Illness: pulmonary alert,nad,-congestion - Current Medication List Current Medications: Active Medications Acetaminophen (Tylenol -) 650 mg PO Q6H PRN PRN Reason: FEVER OR PAIN Last Admin: 05/19/17 00:53 Dose: 650 mg Al Hydroxide/Mg Hydroxide (Mylanta Oral Suspension -) 30 ml PO Q6H PRN PRN Reason: INDIGESTION Last Admin: 05/13/17 13:00 Dose: 30 ml Albuterol/Ipratropium (Duoneb -) 1 amp NEB Q4H PRN PRN Reason: SHORTNESS OF BREATH Ascorbic Acid (Vitamin C -) 500 mg PO HS [facility] Last Admin: 05/19/17 21:39 Dose: 500 mg Atorvastatin Calcium (Lipitor -) 10 mg PO HS [facility] Last Admin: 05/19/17 21:39 Dose: 10 mg Brimonidine Tartrate (Alphagan 0.15% -) 1 drop OD BID [facility] Last Admin: 05/20/17 09:36 Dose: 1 drop Cholecalciferol (Vitamin D3 -) 1,000 unit PO DAILY [facility] Last Admin: 05/20/17 09:35 Dose: 1,000 unit Docusate Sodium (Colace -) 200 mg PO HS [facility] Last Admin: 05/19/17 21:40 Dose: Not Given Duloxetine HCl (Cymbalta -) 60 mg PO HS [facility] Last Admin: 05/19/17 21:39 Dose: 60 mg Enoxaparin Sodium (Lovenox -) 70 mg SQ BID [facility] Last Admin: 05/20/17 09:33 Dose: 70 mg Fenofibric Acid (Trilipix -) 135 mg PO DAILY [facility] Last Admin: 05/20/17 09:35 Dose: 135 mg Fluticasone Propionate (Flonase -) 2 spray NS DAILY [facility] Last Admin: 05/20/17 09:32 Dose: 2 sprays Gabapentin (Neurontin -) 600 mg PO BID [facility] Last Admin: 05/14/17 10:23 Dose: 600 mg Sodium Chloride (Normal Saline -) 1,000 mls @ 50 mls/hr IV [facility]IR [facility] Last Admin: 05/20/17 01:52 Dose: 50 mls/hr Meropenem 1 gm/ Dextrose 100 mls @ 100 mls/hr IVPB Q8H-IV [facility] PRN Reason: Protocol Last Admin: 05/20/17 09:38 Dose: 100 mls/hr Vancomycin HCl 750 mg/ (Dextrose) 250 mls @ 250 mls/hr IVPB DAILY@1500 [facility] Last Admin: 05/19/17 14:24 Dose: 250 mls/hr Lactobacillus Acidophilus (Bacid -) 1 tab PO DAILY [facility] Last Admin: 05/20/17 09:35 Dose: 1 tab Levothyroxine Sodium (Synthroid -) 50 mcg PO DAILY@0700 [facility] Last Admin: 05/20/17 06:43 Dose: 50 mcg Methylprednisolone Sodium Succinate (Solu-Medrol -) 40 mg IVPB DAILY [facility] Last Admin: 05/20/17 09:34 Dose: 40 mg Metoprolol Tartrate (Lopressor -) 12.5 mg PO BID [facility] Last Admin: 05/20/17 09:32 Dose: 12.5 mg Slow Release Ferrous Sulfate (45mg Elemental Feso4) 1 each PO BID [facility] Last Admin: 05/20/17 09:34 Dose: 1 each Pantoprazole Sodium (Protonix -) 40 mg PO DAILY [facility] Last Admin: 05/20/17 09:34 Dose: 40 mg Ranitidine HCl (Zantac -) 150 mg PO BID [facility] Last Admin: 05/20/17 09:35 Dose: 150 mg Senna (Senna -) 2 tab PO DAILY [facility] Last Admin: 05/20/17 09:34 Dose: 2 tab Tamsulosin HCl (Flomax -) 0.4 mg PO DAILY@0830 [facility] Last Admin: 05/20/17 08:55 Dose: 0.4 mg Tiotropium [place] (Spiriva -) 1 puff IH DAILY [facility] Last Admin: 05/20/17 09:34 Dose: 1 puff - Objective Vital Signs: Vital Signs Temperature 98 F 05/20/17 10:00 Pulse Rate 78 05/20/17 10:18 Respiratory Rate 18 05/20/17 10:00 Blood Pressure 132/78 05/20/17 10:00 O2 Sat by Pulse Oximetry (%) 95 05/20/17 10:18 Constitutional: Yes: Well Nourished, Calm Eyes: Yes: WNL HENT: Yes: WNL Neck: Yes: WNL Cardiovascular: Yes: Pulse Irregular, S1, S2 Respiratory: Yes: Diminished (few basilar crackles) Gastrointestinal: Yes: Normal Bowel Sounds, Soft Extremities: Yes: WNL Edema: No Labs: CBC, BMP 05/20/17 06:30 05/20/17 06:30 Assessment/Plan Problem List - Problems (1) Shortness of breath Code(s): R06.02 - SHORTNESS OF BREATH (2) Atrial fibrillation Code(s): I48.91 - UNSPECIFIED ATRIAL FIBRILLATION (3) CHF (congestive heart failure) Code(s): I50.9 - HEART FAILURE, UNSPECIFIED (4) HTN (hypertension) Code(s): I10 - ESSENTIAL (PRIMARY) HYPERTENSION (5) Malignant neoplasm of skin of jain Code(s): C44.309 - UNSP MALIGNANT NEOPLASM OF SKIN OF OTHER PARTS OF FACE (6) PVD (peripheral vascular disease) Code(s): I73.9 - PERIPHERAL VASCULAR DISEASE, UNSPECIFIED 7 PNEUMONIA 8 Altered mental status improved Assessment/Plan O2 /NIPPV ABX PER ID Spiriva BD TX PRN AC CHEST X-RAY DR PELLETIER
[2017-05-20] MEDS: VANCOMYCIN 750 MG in DEXTROSE 5%-WATER - 250 ML IVPB SCH (15:10)
--- NOTE | 2017-05-20 16:27 | PN ---
Progress Note, Physician History of Present Illness: much more awake and alert comfortable - Current Medication List Current Medications: Active Medications Acetaminophen (Tylenol -) 650 mg PO Q6H PRN PRN Reason: FEVER OR PAIN Last Admin: 05/19/17 00:53 Dose: 650 mg Al Hydroxide/Mg Hydroxide (Mylanta Oral Suspension -) 30 ml PO Q6H PRN PRN Reason: INDIGESTION Last Admin: 05/13/17 13:00 Dose: 30 ml Albuterol/Ipratropium (Duoneb -) 1 amp NEB Q4H PRN PRN Reason: SHORTNESS OF BREATH Ascorbic Acid (Vitamin C -) 500 mg PO HS [facility] Last Admin: 05/19/17 21:39 Dose: 500 mg Atorvastatin Calcium (Lipitor -) 10 mg PO HS [facility] Last Admin: 05/19/17 21:39 Dose: 10 mg Brimonidine Tartrate (Alphagan 0.15% -) 1 drop OD BID [facility] Last Admin: 05/20/17 09:36 Dose: 1 drop Cholecalciferol (Vitamin D3 -) 1,000 unit PO DAILY [facility] Last Admin: 05/20/17 09:35 Dose: 1,000 unit Docusate Sodium (Colace -) 200 mg PO HS [facility] Last Admin: 05/19/17 21:40 Dose: Not Given Duloxetine HCl (Cymbalta -) 60 mg PO HS [facility] Last Admin: 05/19/17 21:39 Dose: 60 mg Enoxaparin Sodium (Lovenox -) 70 mg SQ BID [facility] Last Admin: 05/20/17 09:33 Dose: 70 mg Fenofibric Acid (Trilipix -) 135 mg PO DAILY [facility] Last Admin: 05/20/17 09:35 Dose: 135 mg Fluticasone Propionate (Flonase -) 2 spray NS DAILY [facility] Last Admin: 05/20/17 09:32 Dose: 2 sprays Gabapentin (Neurontin -) 600 mg PO BID [facility] Last Admin: 05/14/17 10:23 Dose: 600 mg Sodium Chloride (Normal Saline -) 1,000 mls @ 50 mls/hr IV [facility]IR [facility] Last Admin: 05/20/17 01:52 Dose: 50 mls/hr Meropenem 1 gm/ Dextrose 100 mls @ 100 mls/hr IVPB Q8H-IV [facility] PRN Reason: Protocol Last Admin: 05/20/17 09:38 Dose: 100 mls/hr Lactobacillus Acidophilus (Bacid -) 1 tab PO DAILY [facility] Last Admin: 05/20/17 09:35 Dose: 1 tab Levothyroxine Sodium (Synthroid -) 50 mcg PO DAILY@0700 [facility] Last Admin: 05/20/17 06:43 Dose: 50 mcg Methylprednisolone Sodium Succinate (Solu-Medrol -) 40 mg IVPB DAILY [facility] Last Admin: 05/20/17 09:34 Dose: 40 mg Metoprolol Tartrate (Lopressor -) 12.5 mg PO BID [facility] Last Admin: 05/20/17 09:32 Dose: 12.5 mg Slow Release Ferrous Sulfate (45mg Elemental Feso4) 1 each PO BID [facility] Last Admin: 05/20/17 09:34 Dose: 1 each Pantoprazole Sodium (Protonix -) 40 mg PO DAILY [facility] Last Admin: 05/20/17 09:34 Dose: 40 mg Ranitidine HCl (Zantac -) 150 mg PO BID [facility] Last Admin: 05/20/17 09:35 Dose: 150 mg Senna (Senna -) 2 tab PO DAILY [facility] Last Admin: 05/20/17 09:34 Dose: 2 tab Tamsulosin HCl (Flomax -) 0.4 mg PO DAILY@0830 [facility] Last Admin: 05/20/17 08:55 Dose: 0.4 mg Tiotropium [place] (Spiriva -) 1 puff IH DAILY [facility] Last Admin: 05/20/17 09:34 Dose: 1 puff - Objective Vital Signs: Vital Signs Temperature 97 F L 05/20/17 14:25 Pulse Rate 68 05/20/17 14:25 Respiratory Rate 20 05/20/17 14:25 Blood Pressure 119/72 05/20/17 14:25 O2 Sat by Pulse Oximetry (%) 95 05/20/17 10:18 Constitutional: Yes: No Distress, Calm Cardiovascular: Yes: Pulse Irregular Respiratory: Yes: Regular, Poor Air Entry, Rhonchi Gastrointestinal: Yes: Normal Bowel Sounds, Soft Musculoskeletal: Yes: WNL Extremities: Yes: WNL Neurological: Yes: Alert Psychiatric: Yes: Alert Labs: CBC, BMP 05/20/17 06:30 05/20/17 06:30 Assessment/Plan Problem List - Problems (1) Pneumonia Code(s): J18.9 - PNEUMONIA, UNSPECIFIED ORGANISM Qualifiers: Laterality: right Lung location: lower lobe of lung (2) Alkalosis, metabolic Code(s): E87.3 - ALKALOSIS (3) Atrial fibrillation Code(s): I48.91 - UNSPECIFIED ATRIAL FIBRILLATION Qualifiers: Atrial fibrillation type: chronic Qualified Code(s): I48.2 - Chronic atrial fibrillation (4) CHF (congestive heart failure) Code(s): I50.9 - HEART FAILURE, UNSPECIFIED Qualifiers: Congestive heart failure type: unspecified congestive heart failure type Congestive heart failure chronicity: chronic Qualified Code(s): I50.9 - Heart failure, unspecified (5) GERD (gastroesophageal reflux disease) Code(s): K21.9 - GASTRO-ESOPHAGEAL REFLUX DISEASE WITHOUT ESOPHAGITIS (6) HTN (hypertension) Code(s): I10 - ESSENTIAL (PRIMARY) HYPERTENSION (7) Hyperlipemia Code(s): E78.5 - HYPERLIPIDEMIA, UNSPECIFIED (8) Hypothyroidism Code(s): E03.9 - HYPOTHYROIDISM, UNSPECIFIED (9) PVD (peripheral vascular disease) Code(s): I73.9 - PERIPHERAL VASCULAR DISEASE, UNSPECIFIED Assessment/Plan (1) Community acquired pneumonia (2) Alkalosis, metabolic Code(s): E87.3 - ALKALOSIS (3) Atrial fibrillation Code(s): I48.91 - UNSPECIFIED ATRIAL FIBRILLATION Qualifiers: Atrial fibrillation type: chronic Qualified Code(s): I48.2 - Chronic atrial fibrillation (4) CHF (congestive heart failure) Code(s): I50.9 - HEART FAILURE, UNSPECIFIED Qualifiers: Congestive heart failure type: unspecified congestive heart failure type Congestive heart failure chronicity: chronic Qualified Code(s): I50.9 - Heart failure, unspecified (5) GERD (gastroesophageal reflux disease) Code(s): K21.9 - GASTRO-ESOPHAGEAL REFLUX DISEASE WITHOUT ESOPHAGITIS (6) HTN (hypertension) Code(s): I10 - ESSENTIAL (PRIMARY) HYPERTENSION (7) Hyperlipemia Code(s): E78.5 - HYPERLIPIDEMIA, UNSPECIFIED (8) Hypothyroidism Code(s): E03.9 - HYPOTHYROIDISM, UNSPECIFIED (9) PVD (peripheral vascular disease) Code(s): I73.9 - PERIPHERAL VASCULAR DISEASE, UNSPECIFIED altered mental status which has improved plan continue abx stopped vanco close watch on the patient rest as per primary
--- NOTE | 2017-05-20 19:38 | PN ---
Progress Note (short form) - Note Progress Note: Patient was seen and examined at the bedside. Mental status has improved. Denies chest pain, shortness of breath, palpitation or dizziness. Afebrile. Current Medications Generic Name Dose Route Start Last Admin Trade Name Freq PRN Reason Stop Dose Admin Acetaminophen 650 mg 05/08/17 18:51 05/19/17 00:53 Tylenol - PO 650 mg Q6H PRN Administration FEVER OR PAIN Al Hydroxide/Mg Hydroxide 30 ml 05/13/17 12:50 05/13/17 13:00 Mylanta Oral Suspension - PO 30 ml Q6H PRN Administration INDIGESTION Ascorbic Acid 500 mg 05/08/17 22:00 05/18/17 21:42 Vitamin C - PO 500 mg HS [facility] Administration Atorvastatin Calcium 10 mg 05/08/17 22:00 05/18/17 21:42 Lipitor - PO 10 mg HS [facility] Administration Brimonidine Tartrate 1 drop 05/08/17 22:00 05/18/17 21:43 Alphagan 0.15% - OD 1 drop BID [facility] Administration Cholecalciferol 1,000 unit 05/09/17 10:00 05/18/17 10:12 Vitamin D3 - PO 1,000 unit DAILY [facility] Administration Docusate Sodium 200 mg 05/08/17 22:00 05/18/17 21:42 Colace - PO 200 mg HS [facility] Administration Duloxetine HCl 60 mg 05/08/17 22:00 05/18/17 21:42 Cymbalta - PO 60 mg HS [facility] Administration Enoxaparin Sodium 70 mg 05/15/17 22:15 05/18/17 21:43 Lovenox - SQ 70 mg BID [facility] Administration Fenofibric Acid 135 mg 05/09/17 10:00 05/18/17 10:13 Trilipix - PO Not Given DAILY [facility] Fluticasone Propionate 2 spray 05/09/17 10:00 05/18/17 10:12 Flonase - NS 2 sprays DAILY [facility] Administration Gabapentin 600 mg 05/08/17 22:00 05/14/17 10:23 Neurontin - PO 600 mg BID [facility] Administration Sodium Chloride 1,000 mls @ 50 mls/hr 05/15/17 02:00 05/19/17 01:00 Normal Saline - IV Not Given ASDIR [facility] Meropenem 1 gm/ Dextrose 100 mls @ 100 mls/hr 05/15/17 14:00 05/19/17 01:00 IVPB 100 mls/hr Q8H-IV [facility] Administration Protocol Vancomycin HCl 750 mg/ 250 mls @ 250 mls/hr 05/15/17 15:00 05/18/17 14:09 Dextrose IVPB 250 mls/hr DAILY@1500 [facility] Administration Lactobacillus Acidophilus 1 tab 05/10/17 11:00 05/18/17 10:11 Bacid - PO 1 tab DAILY [facility] Administration Levothyroxine Sodium 50 mcg 05/09/17 07:00 05/19/17 06:41 Synthroid - PO 50 mcg DAILY@0700 [facility] Administration Methylprednisolone Sodium Succinate 40 mg 05/15/17 22:00 05/18/17 21:41 Solu-Medrol - IVPB 40 mg BID [facility] Administration Metoprolol Tartrate 12.5 mg 05/14/17 22:00 05/18/17 21:42 Lopressor - PO 12.5 mg BID [facility] Administration Slow Release Ferrous 1 each 05/10/17 22:00 05/18/17 21:43 Sulfate (45mg PO 1 each Elemental Feso4) BID [facility] Administration Pantoprazole Sodium 40 mg 05/17/17 10:15 05/18/17 10:13 Protonix - PO 40 mg DAILY [facility] Administration Ranitidine HCl 150 mg 05/08/17 22:00 05/18/17 21:42 Zantac - PO 150 mg BID [facility] Administration Senna 2 tab 05/09/17 10:00 05/18/17 10:13 Senna - PO 2 tab DAILY [facility] Administration Tamsulosin HCl 0.4 mg 05/15/17 08:30 05/18/17 10:12 Flomax - PO 0.4 mg DAILY@0830 [facility] Administration Tiotropium [place] 1 puff 05/09/17 13:00 05/18/17 10:13 Spiriva - IH Not Given DAILY [facility] Objective: Vital Signs Period Temp Pulse Resp BP Sys/Mitchell Pulse Ox Last 24 Hr 97 F-98 F 68-90 18-20 119-145/72-97 95-98 Physical Exam: General: NAD, A&Ox1 Lungs: Scattered rhonchi b/l Heart: Irregular rate, S1S2 Abd: Soft, non-tender, non-distended. Normoactive bowel sounds Ext: Warm, well-perfused. 2+ DP/PT bilaterally CBC, BMP 05/20/17 06:30 05/20/17 06:30 CARDIAC ENZYMES Creatine Kinase 24 IU/L (39-308) L 05/08/17 15:23 Troponin I 0.06 ng/ml (0.00-0.05) H 05/09/17 14:00 Microbiology 05/15/17 20:45 Rectal Swab VRE Culture - Final Group D Strep Or Entero Coccus 05/16/17 11:30 Sputum - Expectorated Gram Stain - Final 05/16/17 11:30 Sputum - Expectorated Sputum Culture - Final Yeast Like Organism 05/10/17 11:20 Blood - Peripheral Venous Blood Culture - Final NO GROWTH AFTER 5 DAYS INCUBATION 05/10/17 11:15 Blood - Peripheral Venous Blood Culture - Final NO GROWTH AFTER 5 DAYS INCUBATION 05/10/17 12:02 Urine For Antigen Detection Legionella Antigen - Final 05/10/17 12:02 Urine For Antigen Detection Streptococcus pneumoniae Antigen (M - Final 05/09/17 13:00 Nares - Mrsa Screen - Right MRSA Screen - Final NO MRSA ISOLATED 05/09/17 13:00 Nares - Mrsa Screen - Left MRSA Screen - Final NO MRSA ISOLATED Assessment: This is an 86 year old male with PMHx of a.fib, CAD s/p CABG, CHF, HTN, hyperlipidemia, diverticulosis, GI bleed, renal insufficiency, osteoarthritis who presented to the ED with shortness of breath. Plan: 1) ID: Community acquired pneumonia - Continue Meropenem - Chest PT - S/p expectoration of mucus plug - Appreciate ID consult 2) Pulmonary: Respiratory acidosis - On NC - Bipap prn - Likely 2/2 pneumonia Acute hypoxic respiratory failure - Steroid taper - Taper O2 requirements - Duonebs - Continue Spiriva - Appreciate pulmonary consult 3) Cardiology: A.fib - Rate controlled - Was on Pradaxa, however now on Lovenox as the patient was not tolerating po Chronic diastolic CHF - No evidence of volume overload at this time - Continue to hold home Lasix HTN - Continue Lopressor Hyperlipidemia - Continue Lipitor PVD - On Lovenox 4) : Acute urinary retention - Simmons catheter in place 5) Endocrine: Hypothyroidism - Continue Synthroid 6) F/E/N: - Dysphagia puree - Monitor electrolytes 7) Prophylaxis: - Lovenox 8) Dispo: - Requires continued inpatient care CODE STATUS: FULL CODE
[2017-05-20] MEDS: ASCORBIC ACID 500 MG TABLET (FP) PO SCH (21:47)
[2017-05-20] MEDS: ATORVASTATIN CA 10 MG TABLET (FP) PO SCH (21:47)
[2017-05-20] MEDS: DULoxetine HCL 30 MG CAPSULE.DR (FP) PO SCH (21:47)
[2017-05-20] MEDS: DOCUSATE SODIUM 100 MG CAPSULE (FP) PO SCH (21:48)
[2017-05-21] MEDS: MEROPENEM 1 GM in DEXTROSE 5%-WATER - 100 ML IVPB SCH ×3 (01:17→18:14)
[2017-05-21] MEDS: SODIUM CHLORIDE 1,000 ML IV SCH (02:00)
[2017-05-21] MEDS ORDERED: PT OWN MED DRAWER 7, Y5N ONE ×5 (02:59→23:37)
[2017-05-21] MEDS: LEVOTHYROXINE NA 50 MCG TABLET (FP) PO SCH (06:12)
[2017-05-21 08:25] LABS: MCH 34.7 pg (25.7-33.7); MCHC 33.5 g/dl (32.0-35.9); MEAN CELL VOLUME 103.8 fl (80-96); PLATELET COUNT 108 K/MM3 (134-434); RDW 16.5 % (11.9-15.9); WHITE BLOOD COUNT 7.7 K/mm3 (4.0-10.0)
[2017-05-21 08:49] LABS: ALBUMIN 2.6 g/dl (3.4-5.0); ALK PHOS 36 U/L (45-117); ANION GAP 6 (8-16); BILIRUBIN,TOTAL 0.9 mg/dL (0.2-1.0); CALCIUM 8.5 mg/dL (8.5-10.1); CO2 34 mmol/L (21-32); CREATININE 0.7 mg/dL (0.7-1.3); GLUCOSE,RANDOM 67 mg/dL (74-106); SGOT/AST 39 U/L (15-37); SGPT/ALT 15 U/L (12-78); TOT PROT 5.1 g/dl (6.4-8.2)
--- NOTE | 2017-05-21 10:21 | PN ---
Progress Note (short form) - Note Progress Note: Chief Complaint: sob History of Present Illness: according to family still not eating well. dark urine in [place], ? blood. no cp, palps, sob, dizziness per patient. no f/c/s. Current Medications Acetaminophen (Tylenol -) 650 mg PO Q6H PRN PRN Reason: FEVER OR PAIN Last Admin: 05/19/17 00:53 Dose: 650 mg Al Hydroxide/Mg Hydroxide (Mylanta Oral Suspension -) 30 ml PO Q6H PRN PRN Reason: INDIGESTION Last Admin: 05/13/17 13:00 Dose: 30 ml Albuterol/Ipratropium (Duoneb -) 1 amp NEB Q4H PRN PRN Reason: SHORTNESS OF BREATH Ascorbic Acid (Vitamin C -) 500 mg PO HS [facility] Last Admin: 05/20/17 21:47 Dose: 500 mg Atorvastatin Calcium (Lipitor -) 10 mg PO HS [facility] Last Admin: 05/20/17 21:47 Dose: 10 mg Brimonidine Tartrate (Alphagan 0.15% -) 1 drop OD BID [facility] Last Admin: 05/20/17 21:57 Dose: 1 drop Cholecalciferol (Vitamin D3 -) 1,000 unit PO DAILY [facility] Last Admin: 05/20/17 09:35 Dose: 1,000 unit Docusate Sodium (Colace -) 200 mg PO HS [facility] Last Admin: 05/20/17 21:48 Dose: Not Given Duloxetine HCl (Cymbalta -) 60 mg PO [facility] Last Admin: 05/20/17 21:47 Dose: 60 mg Enoxaparin Sodium (Lovenox -) 70 mg SQ BID [facility] Last Admin: 05/20/17 21:46 Dose: 70 mg Fenofibric Acid (Trilipix -) 135 mg PO DAILY [facility] Last Admin: 05/20/17 09:35 Dose: 135 mg Fluticasone Propionate (Flonase -) 2 spray NS DAILY [facility] Last Admin: 05/20/17 09:32 Dose: 2 sprays Gabapentin (Neurontin -) 600 mg PO BID [facility] Last Admin: 05/14/17 10:23 Dose: 600 mg Sodium Chloride (Normal Saline -) 1,000 mls @ 50 mls/hr IV ASDIR [facility] Last Admin: 05/21/17 02:00 Dose: Not Given Meropenem 1 gm/ Dextrose 100 mls @ 100 mls/hr IVPB Q8H-IV [facility] PRN Reason: Protocol Last Admin: 05/21/17 01:17 Dose: 100 mls/hr Lactobacillus Acidophilus (Bacid -) 1 tab PO DAILY [facility] Last Admin: 05/20/17 09:35 Dose: 1 tab Levothyroxine Sodium (Synthroid -) 50 mcg PO DAILY@0700 [facility] Last Admin: 05/21/17 06:12 Dose: 50 mcg Methylprednisolone Sodium Succinate (Solu-Medrol -) 40 mg IVPB DAILY [facility] Last Admin: 05/20/17 09:34 Dose: 40 mg Metoprolol Tartrate (Lopressor -) 12.5 mg PO BID [facility] Last Admin: 05/20/17 21:47 Dose: 12.5 mg Slow Release Ferrous Sulfate (45mg Elemental Feso4) 1 each PO BID [facility] Last Admin: 05/20/17 21:47 Dose: 1 each Pantoprazole Sodium (Protonix -) 40 mg PO DAILY [facility] Last Admin: 05/20/17 09:34 Dose: 40 mg Ranitidine HCl (Zantac -) 150 mg PO BID [facility] Last Admin: 05/20/17 21:48 Dose: 150 mg Senna (Senna -) 2 tab PO DAILY [facility] Last Admin: 05/20/17 09:34 Dose: 2 tab Tamsulosin HCl (Flomax -) 0.4 mg PO DAILY@0830 [facility] Last Admin: 05/20/17 08:55 Dose: 0.4 mg Tiotropium [place] (Spiriva -) 1 puff IH DAILY [facility] Last Admin: 05/20/17 09:34 Dose: 1 puff Vital Signs - 24 hr 05/20/17 05/20/17 05/20/17 14:25 18:40 21:00 Temperature 97 F L 98.1 F 97.6 F Pulse Rate 68 68 82 Respiratory 20 18 20 Rate Blood Pressure 119/72 126/69 138/73 O2 Sat by Pulse 95 Oximetry (%) 05/21/17 06:00 Temperature 98.7 F Pulse Rate 86 Respiratory 20 Rate Blood Pressure 142/83 O2 Sat by Pulse Oximetry (%) Intake & Output 05/19/17 05/20/17 05/21/17 05/22/17 07:59 07:59 07:59 07:59 Intake Total 500 1600 1370 Output Total 1150 1000 1600 Balance -650 600 -230 Constitutional: Yes: No Distress, Calm Cardiovascular: Yes: irregular Rate and Rhythm, S1, S2. No: Gallop, Murmur Respiratory: Yes: bibasilar dullness, poor effort. No: Accessory Muscle Use Extremities: No: Cold Edema: No Neurological: Yes: alert today, conversational. No: Seizure Psychiatric: No: Agitated Labs: CBC, BMP 05/21/17 06:00 05/21/17 06:00 Laboratory Tests 05/19/17 05/21/17 06:15 06:00 Total Bilirubin 0.9 AST 46 H D 39 H ALT 15 Alkaline Phosphatase 36 L Albumin 2.6 L Assessment/Plan echo 05/19: mild, global LV hypo; nl RV; mild MR; mild ao root dilation (no RVSP) echo 10/2016: low nl lvef, nl lv size, nl rv, mild elena, mild mr/tr, rvsp 40-50 Echo mibi 10/2016: no ischemia head ct 05/14: chronic rt cerebellar infarct, no acute pathology. cxr 05/20: improved aeration of rt lung base. residular rt basilar atelectasis/ infiltrate with possible new minimal rt effusion. a/p: 86 Y/O Gentleman with a PMhx that includes CKD, CAD s/p pci to rca 2004 ( patent on cath 2006), PVD s/p le bypass/stents/amputations, HTN, Afib on AC, here with sob, weakness found to have pna. fatigue, sob: -bnp very high, but outpt lasix has not improved his sxs and here with no signs of vol overload so does not seem that chf causing his sxs. lasix held and patient has been on maintenance fluids. -imaging shows pna, mucus plugs, possibly aspirating, cont abx, steroids per ID/ pulm afib: - mental status changes during this admission --> head ct negative for bleed., had been on pradaxa but was switched to lovenox while unable to take po. - 05/21 Now able to take po but today with dark urine, ? hematuria and hgb/ platelets con't to trend down. Con't lovenox for now b/c of its short half life - unless hit panel positive. monitor for need to hold AC due to worsening thrombocytopenia or bleed. -rate controlled, cont low dose bb cad s/p remote pci: -stable -no signs acs -cont AC, statin. has been off bb/acei due to low bp as outpt, but started BB here for AF chronic diastolic chf: -bnp 23K (baseline 8-10K) -05/13: has been on lasix 40 po daily, wts ranging 151-157 here, suspect JVD on exam though he is asymptomatic. cxr 05/12 with mild incr interstl markings ? mild chf. given lasix 40mg IVP x 1 - 05/14: bp drop after lasix. today bicarb up to 38 and lethargic (baseline unknown to me). Would hold po lasix tomorrow, monitor for when to resume. K 4.5 , mg 2.5. can stop standing repletion. -05/15-17: no signs vol overload, cont to hold home lasix - 05/20: po intake improving but still decreased according to family. con't ivf for now, but may be able to stop soon. no signs vol overload thus far, cont to hold home lasix htn: -stable hld: -cont home statin, trilipix for now. anemia: -chronic. monitor as above.
[2017-05-21] MEDS: FLUTICASONE PROP 0.05% 16 GM NASAL SPRAY NS SCH (10:26)
[2017-05-21] MEDS: LACTOBACILLUS ACIDOPHILUS 1 EACH TAB (FP) PO SCH (10:26)
[2017-05-21] MEDS: METOPROLOL TARTRATE 25 MG TABLET (FP) PO SCH ×2 (10:28→23:28)
[2017-05-21] MEDS: ENOXAPARIN NA (PORCINE) 80 MG/0.8 ML DISP.SYRIN SQ SCH ×3 (10:29→23:32)
[2017-05-21] MEDS: methylPREDNISolone NA SUCC 40 MG/1 ML VIAL IVPB SCH (10:31)
[2017-05-21] MEDS: TIOTROPIUM BROMIDE 18 MCG/INH (DEVICE W/ 5 CAPSULES) IH SCH (10:32)
[2017-05-21] MEDS: RANITIDINE HCL 150 MG TABLET (FP) PO SCH ×2 (10:33→23:27)
[2017-05-21] MEDS: CHOLECALCIFEROL (VITAMIN D3) 1,000 UNIT TABLET (FP) PO SCH (10:33)
[2017-05-21] MEDS: TAMSULOSIN HCL 0.4 MG CAP.ER.24H (FP) PO SCH (10:38)
[2017-05-21] MEDS: BRIMONIDINE TARTRATE 0.15% OPHTHALMIC 5 ML BOTTLE OD SCH ×2 (10:38→23:36)
--- NOTE | 2017-05-21 10:51 | PN ---
Progress Note, Physician Chief Complaint: Mr Rivas is without complaint today. Says he is feeling well. Denies cp, sob, n/ v. Says he is having no problem with swallowing recently. - Current Medication List Current Medications: Active Medications Acetaminophen (Tylenol -) 650 mg PO Q6H PRN PRN Reason: FEVER OR PAIN Last Admin: 05/19/17 00:53 Dose: 650 mg Al Hydroxide/Mg Hydroxide (Mylanta Oral Suspension -) 30 ml PO Q6H PRN PRN Reason: INDIGESTION Last Admin: 05/13/17 13:00 Dose: 30 ml Albuterol/Ipratropium (Duoneb -) 1 amp NEB Q4H PRN PRN Reason: SHORTNESS OF BREATH Last Admin: 05/21/17 10:38 Dose: 1 amp Ascorbic Acid (Vitamin C -) 500 mg PO HS [facility] Last Admin: 05/20/17 21:47 Dose: 500 mg Atorvastatin Calcium (Lipitor -) 10 mg PO HS [facility] Last Admin: 05/20/17 21:47 Dose: 10 mg Brimonidine Tartrate (Alphagan 0.15% -) 1 drop OD BID [facility] Last Admin: 05/20/17 21:57 Dose: 1 drop Cholecalciferol (Vitamin D3 -) 1,000 unit PO DAILY [facility] Last Admin: 05/20/17 09:35 Dose: 1,000 unit Docusate Sodium (Colace -) 200 mg PO HS [facility] Last Admin: 05/20/17 21:48 Dose: Not Given Duloxetine HCl (Cymbalta -) 60 mg PO HS [facility] Last Admin: 05/20/17 21:47 Dose: 60 mg Enoxaparin Sodium (Lovenox -) 70 mg SQ BID [facility] Last Admin: 05/20/17 21:46 Dose: 70 mg Fenofibric Acid (Trilipix -) 135 mg PO DAILY [facility] Last Admin: 05/20/17 09:35 Dose: 135 mg Fluticasone Propionate (Flonase -) 2 spray NS DAILY [facility] Last Admin: 05/20/17 09:32 Dose: 2 sprays Gabapentin (Neurontin -) 600 mg PO BID [facility] Last Admin: 05/14/17 10:23 Dose: 600 mg Sodium Chloride (Normal Saline -) 1,000 mls @ 50 mls/hr IV ASDIR [facility] Last Admin: 05/21/17 02:00 Dose: Not Given Meropenem 1 gm/ Dextrose 100 mls @ 100 mls/hr IVPB Q8H-IV [facility] PRN Reason: Protocol Last Admin: 05/21/17 01:17 Dose: 100 mls/hr Lactobacillus Acidophilus (Bacid -) 1 tab PO DAILY [facility] Last Admin: 05/20/17 09:35 Dose: 1 tab Levothyroxine Sodium (Synthroid -) 50 mcg PO DAILY@0700 [facility] Last Admin: 05/21/17 06:12 Dose: 50 mcg Methylprednisolone Sodium Succinate (Solu-Medrol -) 40 mg IVPB DAILY [facility] Last Admin: 05/20/17 09:34 Dose: 40 mg Metoprolol Tartrate (Lopressor -) 12.5 mg PO BID [facility] Last Admin: 05/20/17 21:47 Dose: 12.5 mg Slow Release Ferrous Sulfate (45mg Elemental Feso4) 1 each PO BID [facility] Last Admin: 05/20/17 21:47 Dose: 1 each Pantoprazole Sodium (Protonix -) 40 mg PO DAILY [facility] Last Admin: 05/20/17 09:34 Dose: 40 mg Ranitidine HCl (Zantac -) 150 mg PO BID [facility] Last Admin: 05/20/17 21:48 Dose: 150 mg Senna (Senna -) 2 tab PO DAILY [facility] Last Admin: 05/20/17 09:34 Dose: 2 tab Tamsulosin HCl (Flomax -) 0.4 mg PO DAILY@0830 [facility] Last Admin: 05/20/17 08:55 Dose: 0.4 mg Tiotropium [place] (Spiriva -) 1 puff IH DAILY [facility] Last Admin: 05/20/17 09:34 Dose: 1 puff - Objective Vital Signs: Vital Signs Temperature 37.1 C 05/21/17 06:00 Pulse Rate 92 H 05/21/17 10:39 Respiratory Rate 20 05/21/17 06:00 Blood Pressure 142/83 05/21/17 06:00 O2 Sat by Pulse Oximetry (%) 94 L 05/21/17 10:39 Constitutional: Yes: Well Nourished, No Distress, Calm Cardiovascular: Yes: Regular Rate and Rhythm. No: Gallop, Murmur, Rub Respiratory: Yes: Regular, Rhonchi (minimal). No: CTA Bilaterally, Rales, Wheezes Gastrointestinal: Yes: Normal Bowel Sounds, Soft. No: Distention, Tenderness Extremities: Yes: WNL Edema: No Labs: CBC, BMP 05/21/17 06:00 05/21/17 06:00 Problem List - Problems (1) Pneumonia Code(s): J18.9 - PNEUMONIA, UNSPECIFIED ORGANISM Qualifiers: Laterality: right Lung location: lower lobe of lung (2) Alkalosis, metabolic Code(s): E87.3 - ALKALOSIS (3) Atrial fibrillation Code(s): I48.91 - UNSPECIFIED ATRIAL FIBRILLATION Qualifiers: Atrial fibrillation type: chronic Qualified Code(s): I48.2 - Chronic atrial fibrillation (4) CHF (congestive heart failure) Code(s): I50.9 - HEART FAILURE, UNSPECIFIED Qualifiers: Congestive heart failure type: unspecified congestive heart failure type Congestive heart failure chronicity: chronic Qualified Code(s): I50.9 - Heart failure, unspecified (5) GERD (gastroesophageal reflux disease) Code(s): K21.9 - GASTRO-ESOPHAGEAL REFLUX DISEASE WITHOUT ESOPHAGITIS (6) HTN (hypertension) Code(s): I10 - ESSENTIAL (PRIMARY) HYPERTENSION (7) Hyperlipemia Code(s): E78.5 - HYPERLIPIDEMIA, UNSPECIFIED (8) Hypothyroidism Code(s): E03.9 - HYPOTHYROIDISM, UNSPECIFIED (9) PVD (peripheral vascular disease) Code(s): I73.9 - PERIPHERAL VASCULAR DISEASE, UNSPECIFIED (10) Acute respiratory failure Code(s): J96.00 - ACUTE RESPIRATORY FAILURE, UNSP W HYPOXIA OR HYPERCAPNIA Qualifiers: Respiratory failure complication: hypoxia and hypercapnia Qualified Code(s): J96.01 - Acute respiratory failure with hypoxia (11) Acute respiratory acidosis Code(s): E87.2 - ACIDOSIS Assessment/Plan (1) Community acquired pneumonia Assessment/Plan: -patient with post obstructive pneumonia, s/p expactoration of mucus plug -ID following -continue merrem per ID (2) Respiratory acidosis Assessment/Plan: -resolved -no longer needing bipap -pulmonary following Code(s): (3) Atrial fibrillation Assessment/Plan: -controlled -pradaxa changed to lovenox secondary to swallowing Code(s): I48.91 - UNSPECIFIED ATRIAL FIBRILLATION Qualifiers: Atrial fibrillation type: chronic Qualified Code(s): I48.2 - Chronic atrial fibrillation (4) CHF (congestive heart failure) Assessment/Plan: -ECHO reviewed and cardiology following -not in exacerbation Code(s): I50.9 - HEART FAILURE, UNSPECIFIED Qualifiers: Congestive heart failure type: unspecified congestive heart failure type Congestive heart failure chronicity: chronic Qualified Code(s): I50.9 - Heart failure, unspecified (5) GERD (gastroesophageal reflux disease) Assessment/Plan: -continue zantac Code(s): K21.9 - GASTRO-ESOPHAGEAL REFLUX DISEASE WITHOUT ESOPHAGITIS (6) HTN (hypertension) Assessment/Plan: -controlled -continue lasix Code(s): I10 - ESSENTIAL (PRIMARY) HYPERTENSION (7) Hyperlipemia Assessment/Plan: -continue fenofibrate and lipitor Code(s): E78.5 - HYPERLIPIDEMIA, UNSPECIFIED (8) Hypothyroidism Assessment/Plan: -continue synthroid Code(s): E03.9 - HYPOTHYROIDISM, UNSPECIFIED (9) PVD (peripheral vascular disease) Assessment/Plan: -currently on lovenox -does not complain of claudication Code(s): I73.9 - PERIPHERAL VASCULAR DISEASE, UNSPECIFIED (10) Urinary retention -continue flomax (11) Metabolic encephalopathy -resolved (12) Acute respiratory failure -pulmonary following -continue steroid taper -continue bronchodilators -oxygen support as needed -much improved (13) Uremia -improving (14) Anemia -with steadily decreasing H/H -check iron studies -stool for occult blood ordered (15) Thrombocytopenia -? secondary to lovenox -check HIT antibodies -if continues to decrease, change back to pradaxa
[2017-05-21 11:03] LABS: METAMYELOCYTE 3 % (0-2); MYELOCYTE 1 % (0-2); PLATELET ESTIMATE DECREASED (NORMAL); TOTAL CELLS COUNTED 100
--- NOTE | 2017-05-21 11:05 | PN ---
Progress Note, [employer] - Note Progress Note: Educated staff on feeding instructions. Encouirage PO intake, espectially supplements. Selected Entries 05/20/17 05/20/17 05/20/17 06:00 09:02 10:00 Breakfast 100% Lunch Supper 75% Temperature 97.0 F L 98 F 05/20/17 05/20/17 05/20/17 14:25 18:40 21:00 Breakfast Lunch 25% Supper 50% Temperature 97 F L 98.1 F 97.6 F 05/21/17 05/21/17 06:00 09:33 Breakfast 75% Lunch Supper Temperature 98.7 F Laboratory Tests 05/21/17 06:00 WBC 7.7 Suggest:STR for intensive swallowing therapy. Thinned out pureed diet maybe with added liquid ensure plus supplement for additional nourishment,,nectar thick liquid.Ensure compact. Calorie count. If insufficient po acceptance, may benefit from PEG for supplement nocturnal feedings.
--- NOTE | 2017-05-21 11:50 | PN ---
Progress Note, Physician History of Present Illness: pulmonary alert,mildly confused,-resp distress - Current Medication List Current Medications: Active Medications Acetaminophen (Tylenol -) 650 mg PO Q6H PRN PRN Reason: FEVER OR PAIN Last Admin: 05/19/17 00:53 Dose: 650 mg Al Hydroxide/Mg Hydroxide (Mylanta Oral Suspension -) 30 ml PO Q6H PRN PRN Reason: INDIGESTION Last Admin: 05/13/17 13:00 Dose: 30 ml Albuterol/Ipratropium (Duoneb -) 1 amp NEB Q4H PRN PRN Reason: SHORTNESS OF BREATH Last Admin: 05/21/17 10:38 Dose: 1 amp Ascorbic Acid (Vitamin C -) 500 mg PO HS [facility] Last Admin: 05/20/17 21:47 Dose: 500 mg Atorvastatin Calcium (Lipitor -) 10 mg PO HS [facility] Last Admin: 05/20/17 21:47 Dose: 10 mg Brimonidine Tartrate (Alphagan 0.15% -) 1 drop OD BID [facility] Last Admin: 05/20/17 21:57 Dose: 1 drop Cholecalciferol (Vitamin D3 -) 1,000 unit PO DAILY [facility] Last Admin: 05/20/17 09:35 Dose: 1,000 unit Docusate Sodium (Colace -) 200 mg PO HS [facility] Last Admin: 05/20/17 21:48 Dose: Not Given Duloxetine HCl (Cymbalta -) 60 mg PO HS [facility] Last Admin: 05/20/17 21:47 Dose: 60 mg Enoxaparin Sodium (Lovenox -) 70 mg SQ BID [facility] Last Admin: 05/20/17 21:46 Dose: 70 mg Fenofibric Acid (Trilipix -) 135 mg PO DAILY [facility] Last Admin: 05/20/17 09:35 Dose: 135 mg Fluticasone Propionate (Flonase -) 2 spray NS DAILY [facility] Last Admin: 05/20/17 09:32 Dose: 2 sprays Gabapentin (Neurontin -) 600 mg PO BID [facility] Last Admin: 05/14/17 10:23 Dose: 600 mg Sodium Chloride (Normal Saline -) 1,000 mls @ 50 mls/hr IV ASDIR [facility] Last Admin: 05/21/17 02:00 Dose: Not Given Meropenem 1 gm/ Dextrose 100 mls @ 100 mls/hr IVPB Q8H-IV [facility] PRN Reason: Protocol Last Admin: 05/21/17 01:17 Dose: 100 mls/hr Lactobacillus Acidophilus (Bacid -) 1 tab PO DAILY [facility] Last Admin: 05/20/17 09:35 Dose: 1 tab Levothyroxine Sodium (Synthroid -) 50 mcg PO DAILY@0700 [facility] Last Admin: 05/21/17 06:12 Dose: 50 mcg Methylprednisolone Sodium Succinate (Solu-Medrol -) 40 mg IVPB DAILY [facility] Last Admin: 05/20/17 09:34 Dose: 40 mg Metoprolol Tartrate (Lopressor -) 12.5 mg PO BID [facility] Last Admin: 05/20/17 21:47 Dose: 12.5 mg Slow Release Ferrous Sulfate (45mg Elemental Feso4) 1 each PO BID [facility] Last Admin: 05/20/17 21:47 Dose: 1 each Pantoprazole Sodium (Protonix -) 40 mg PO DAILY [facility] Last Admin: 05/20/17 09:34 Dose: 40 mg Ranitidine HCl (Zantac -) 150 mg PO BID [facility] Last Admin: 05/20/17 21:48 Dose: 150 mg Senna (Senna -) 2 tab PO DAILY [facility] Last Admin: 05/20/17 09:34 Dose: 2 tab Tamsulosin HCl (Flomax -) 0.4 mg PO DAILY@0830 [facility] Last Admin: 05/20/17 08:55 Dose: 0.4 mg Tiotropium [place] (Spiriva -) 1 puff IH DAILY [facility] Last Admin: 05/20/17 09:34 Dose: 1 puff - Objective Vital Signs: Vital Signs Temperature 98.7 F 05/21/17 06:00 Pulse Rate 92 H 05/21/17 10:39 Respiratory Rate 20 05/21/17 06:00 Blood Pressure 142/83 05/21/17 06:00 O2 Sat by Pulse Oximetry (%) 94 L 05/21/17 10:39 Constitutional: Yes: Well Nourished, Calm Eyes: Yes: WNL HENT: Yes: WNL Neck: Yes: WNL Cardiovascular: Yes: Pulse Irregular, S1, S2 Respiratory: Yes: Rales (few basilar crackles) Gastrointestinal: Yes: Normal Bowel Sounds, Soft Extremities: Yes: WNL Edema: No Labs: CBC, BMP 05/21/17 06:00 05/21/17 06:00 - ....Imaging Chest X-ray: Report Reviewed, Image Reviewed Assessment/Plan Problem List - Problems (1) Shortness of breath Code(s): R06.02 - SHORTNESS OF BREATH (2) Atrial fibrillation Code(s): I48.91 - UNSPECIFIED ATRIAL FIBRILLATION (3) CHF (congestive heart failure) Code(s): I50.9 - HEART FAILURE, UNSPECIFIED (4) HTN (hypertension) Code(s): I10 - ESSENTIAL (PRIMARY) HYPERTENSION (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
[2017-05-21] MEDS: PANTOPRAZOLE 40 MG TABLET (FP) PO SCH (12:39)
[2017-05-21] MEDS: FERROUS SULFATE PO SCH ×2 (12:39→23:37)
[2017-05-21] MEDS: SENNOSIDES 8.6MG TABLET (FP) PO SCH (12:39)
[2017-05-21] MEDS: FENOFIBRIC ACID 135 MG CAP PO SCH (12:40)
--- NOTE | 2017-05-21 15:17 | PN ---
Progress Note, Physician History of Present Illness: awake and alert patient is more comfortable no complaints - Current Medication List Current Medications: Active Medications Acetaminophen (Tylenol -) 650 mg PO Q6H PRN PRN Reason: FEVER OR PAIN Last Admin: 05/19/17 00:53 Dose: 650 mg Al Hydroxide/Mg Hydroxide (Mylanta Oral Suspension -) 30 ml PO Q6H PRN PRN Reason: INDIGESTION Last Admin: 05/13/17 13:00 Dose: 30 ml Albuterol/Ipratropium (Duoneb -) 1 amp NEB Q4H PRN PRN Reason: SHORTNESS OF BREATH Last Admin: 05/21/17 10:38 Dose: 1 amp Ascorbic Acid (Vitamin C -) 500 mg PO HS [facility] Last Admin: 05/20/17 21:47 Dose: 500 mg Atorvastatin Calcium (Lipitor -) 10 mg PO HS [facility] Last Admin: 05/20/17 21:47 Dose: 10 mg Brimonidine Tartrate (Alphagan 0.15% -) 1 drop OD BID [facility] Last Admin: 05/21/17 10:38 Dose: 1 drop Cholecalciferol (Vitamin D3 -) 1,000 unit PO DAILY [facility] Last Admin: 05/21/17 10:33 Dose: 1,000 unit Docusate Sodium (Colace -) 200 mg PO HS [facility] Last Admin: 05/20/17 21:48 Dose: Not Given Duloxetine HCl (Cymbalta -) 60 mg PO HS [facility] Last Admin: 05/20/17 21:47 Dose: 60 mg Enoxaparin Sodium (Lovenox -) 70 mg SQ BID [facility] Last Admin: 05/21/17 10:29 Dose: 70 mg Fenofibric Acid (Trilipix -) 135 mg PO DAILY [facility] Last Admin: 05/21/17 12:40 Dose: Not Given Fluticasone Propionate (Flonase -) 2 spray NS DAILY [facility] Last Admin: 05/21/17 10:26 Dose: 2 sprays Gabapentin (Neurontin -) 600 mg PO BID [facility] Last Admin: 05/14/17 10:23 Dose: 600 mg Sodium Chloride (Normal Saline -) 1,000 mls @ 50 mls/hr IV ASDIR [facility] Last Admin: 05/21/17 02:00 Dose: Not Given Meropenem 1 gm/ Dextrose 100 mls @ 100 mls/hr IVPB Q8H-IV [facility] PRN Reason: Protocol Last Admin: 05/21/17 10:29 Dose: 100 mls/hr Lactobacillus Acidophilus (Bacid -) 1 tab PO DAILY [facility] Last Admin: 05/21/17 10:26 Dose: 1 tab Levothyroxine Sodium (Synthroid -) 50 mcg PO DAILY@0700 [facility] Last Admin: 05/21/17 06:12 Dose: 50 mcg Methylprednisolone Sodium Succinate (Solu-Medrol -) 40 mg IVPB DAILY [facility] Last Admin: 05/21/17 10:31 Dose: 40 mg Metoprolol Tartrate (Lopressor -) 12.5 mg PO BID [facility] Last Admin: 05/21/17 10:28 Dose: 12.5 mg Slow Release Ferrous Sulfate (45mg Elemental Feso4) 1 each PO BID [facility] Last Admin: 05/21/17 12:39 Dose: Not Given Pantoprazole Sodium (Protonix -) 40 mg PO DAILY [facility] Last Admin: 05/21/17 12:39 Dose: Not Given Ranitidine HCl (Zantac -) 150 mg PO BID [facility] Last Admin: 05/21/17 10:33 Dose: 150 mg Senna (Senna -) 2 tab PO DAILY [facility] Last Admin: 05/21/17 12:39 Dose: Not Given Tamsulosin HCl (Flomax -) 0.4 mg PO DAILY@0830 [facility] Last Admin: 05/21/17 10:38 Dose: Not Given Tiotropium [place] (Spiriva -) 1 puff IH DAILY [facility] Last Admin: 05/21/17 10:32 Dose: 1 puff - Objective Vital Signs: Vital Signs Temperature 98.3 F 05/21/17 14:00 Pulse Rate 80 05/21/17 14:00 Respiratory Rate 20 05/21/17 14:00 Blood Pressure 122/60 05/21/17 14:00 O2 Sat by Pulse Oximetry (%) 94 L 05/21/17 10:39 Constitutional: Yes: No Distress, Calm Cardiovascular: Yes: Regular Rate and Rhythm Respiratory: Yes: Regular, Rhonchi Gastrointestinal: Yes: Normal Bowel Sounds, Soft Musculoskeletal: Yes: WNL Extremities: Yes: WNL Neurological: Yes: Alert, Oriented Psychiatric: Yes: Alert Labs: CBC, BMP 05/21/17 06:00 05/21/17 06:00 Assessment/Plan Problem List - Problems (1) Pneumonia Code(s): J18.9 - PNEUMONIA, UNSPECIFIED ORGANISM Qualifiers: Laterality: right Lung location: lower lobe of lung (2) Alkalosis, metabolic Code(s): E87.3 - ALKALOSIS (3) Atrial fibrillation Code(s): I48.91 - UNSPECIFIED ATRIAL FIBRILLATION Qualifiers: Atrial fibrillation type: chronic Qualified Code(s): I48.2 - Chronic atrial fibrillation (4) CHF (congestive heart failure) Code(s): I50.9 - HEART FAILURE, UNSPECIFIED Qualifiers: Congestive heart failure type: unspecified congestive heart failure type Congestive heart failure chronicity: chronic Qualified Code(s): I50.9 - Heart failure, unspecified (5) GERD (gastroesophageal reflux disease) Code(s): K21.9 - GASTRO-ESOPHAGEAL REFLUX DISEASE WITHOUT ESOPHAGITIS (6) HTN (hypertension) Code(s): I10 - ESSENTIAL (PRIMARY) HYPERTENSION (7) Hyperlipemia Code(s): E78.5 - HYPERLIPIDEMIA, UNSPECIFIED (8) Hypothyroidism Code(s): E03.9 - HYPOTHYROIDISM, UNSPECIFIED (9) PVD (peripheral vascular disease) Code(s): I73.9 - PERIPHERAL VASCULAR DISEASE, UNSPECIFIED Assessment/Plan (1) Community acquired pneumonia (2) Alkalosis, metabolic Code(s): E87.3 - ALKALOSIS (3) Atrial fibrillation Code(s): I48.91 - UNSPECIFIED ATRIAL FIBRILLATION Qualifiers: Atrial fibrillation type: chronic Qualified Code(s): I48.2 - Chronic atrial fibrillation (4) CHF (congestive heart failure) Code(s): I50.9 - HEART FAILURE, UNSPECIFIED Qualifiers: Congestive heart failure type: unspecified congestive heart failure type Congestive heart failure chronicity: chronic Qualified Code(s): I50.9 - Heart failure, unspecified (5) GERD (gastroesophageal reflux disease) Code(s): K21.9 - GASTRO-ESOPHAGEAL REFLUX DISEASE WITHOUT ESOPHAGITIS (6) HTN (hypertension) Code(s): I10 - ESSENTIAL (PRIMARY) HYPERTENSION (7) Hyperlipemia Code(s): E78.5 - HYPERLIPIDEMIA, UNSPECIFIED (8) Hypothyroidism Code(s): E03.9 - HYPOTHYROIDISM, UNSPECIFIED (9) PVD (peripheral vascular disease) Code(s): I73.9 - PERIPHERAL VASCULAR DISEASE, UNSPECIFIED altered mental status which has improved plan continue abx continue current mgmt rest as per primary incentive kimberly
[2017-05-21 15:33] LABS: URINE APPEARANCE CLOUDY; URINE BILIRUBIN NEGATIVE (NEGATIVE); URINE BLOOD 3+ (NEGATIVE); URINE COLOR AMBER; URINE GLUCOSE (UA) NEGATIVE (NEGATIVE); URINE KETONE NEGATIVE (NEGATIVE); URINE LEUK ESTERASE NEGATIVE (NEGATIVE); URINE NITRITE NEGATIVE (NEGATIVE); URINE UROBILINOGEN NEGATIVE mg/dL (0.2-1.0)
[2017-05-21 15:37] LABS: URINE PROTEIN 2+ (NEGATIVE)
[2017-05-21 15:38] LABS: URINE BACTERIA RARE /hpf (NONE SEEN); URINE MUCUS RARE; URINE RBC 1331 /hpf (0-3); URINE WBC 436 /hpf (3-5)
[2017-05-21] MEDS: ASCORBIC ACID 500 MG TABLET (FP) PO SCH (23:28)
[2017-05-21] MEDS: ATORVASTATIN CA 10 MG TABLET (FP) PO SCH (23:28)
[2017-05-21] MEDS: DOCUSATE SODIUM 100 MG CAPSULE (FP) PO SCH (23:34)
[2017-05-21] MEDS: DULoxetine HCL 30 MG CAPSULE.DR (FP) PO SCH (23:34)
[2017-05-22] MEDS ORDERED: PT OWN MED DRAWER 7, Y5N ONE ×5 (02:47→18:48)
[2017-05-22] MEDS: MEROPENEM 1 GM in DEXTROSE 5%-WATER - 100 ML IVPB SCH ×3 (02:47→17:23)
[2017-05-22] MEDS: SODIUM CHLORIDE 1,000 ML IV SCH ×3 (06:06→19:58)
[2017-05-22] MEDS: LEVOTHYROXINE NA 50 MCG TABLET (FP) PO SCH (07:49)
[2017-05-22 08:12] LABS: SERUM IRON 61 ug/dL (38-169); TOTAL IRON BINDING CAPACITY 242 ug/dL (250-450); UIBC 181 ug/dL (111-343)
[2017-05-22] MEDS: TAMSULOSIN HCL 0.4 MG CAP.ER.24H (FP) PO SCH (08:30)
[2017-05-22] MEDS: FENOFIBRIC ACID 135 MG CAP PO SCH (10:00)
[2017-05-22 10:16] LABS: TRANSFERRIN 206 mg/dL (200-370)
--- NOTE | 2017-05-22 10:42 | PN ---
Progress Note (short form) - Note Progress Note: s: no cp palps dizzy, sob better, eating better Current Medications Generic Name Dose Route Start Last Admin Trade Name Ramonq PRN Reason Stop Dose Admin Acetaminophen 650 mg 05/08/17 18:51 05/19/17 00:53 Tylenol - PO 650 mg Q6H PRN Administration FEVER OR PAIN Al Hydroxide/Mg Hydroxide 30 ml 05/13/17 12:50 05/13/17 13:00 Mylanta Oral Suspension - PO 30 ml Q6H PRN Administration INDIGESTION Albuterol/Ipratropium 1 amp 05/19/17 17:58 05/21/17 10:38 Duoneb - NEB 1 amp Q4H PRN Administration SHORTNESS OF BREATH Ascorbic Acid 500 mg 05/08/17 22:00 05/21/17 23:28 Vitamin C - PO 500 mg HS [facility] Administration Atorvastatin Calcium 10 mg 05/08/17 22:00 05/21/17 23:28 Lipitor - PO 10 mg HS [facility] Administration Brimonidine Tartrate 1 drop 05/08/17 22:00 05/21/17 23:36 Alphagan 0.15% - OD 1 drop BID [facility] Administration Cholecalciferol 1,000 unit 05/09/17 10:00 05/21/17 10:33 Vitamin D3 - PO 1,000 unit DAILY [facility] Administration Docusate Sodium 200 mg 05/08/17 22:00 05/21/17 23:34 Colace - PO Not Given HS [facility] Duloxetine HCl 60 mg 05/08/17 22:00 05/21/17 23:34 Cymbalta - PO Not Given HS [facility] Enoxaparin Sodium 70 mg 05/15/17 22:15 05/21/17 23:32 Lovenox - SQ 70 mg BID [facility] Administration Fenofibric Acid 135 mg 05/09/17 10:00 05/21/17 12:40 Trilipix - PO Not Given DAILY [facility] Fluticasone Propionate 2 spray 05/09/17 10:00 05/21/17 10:26 Flonase - NS 2 sprays DAILY [facility] Administration Gabapentin 600 mg 05/08/17 22:00 05/14/17 10:23 Neurontin - PO 600 mg BID [facility] Administration Sodium Chloride 1,000 mls @ 50 mls/hr 05/15/17 02:00 05/22/17 06:06 Normal Saline - IV Not Given ASDIR [facility] Meropenem 1 gm/ Dextrose 100 mls @ 100 mls/hr 05/15/17 14:00 05/22/17 02:47 IVPB 100 mls/hr Q8H-IV [facility] Administration Protocol Lactobacillus Acidophilus 1 tab 05/10/17 11:00 05/21/17 10:26 Bacid - PO 1 tab DAILY [facility] Administration Levothyroxine Sodium 50 mcg 05/09/17 07:00 05/22/17 07:49 Synthroid - PO 50 mcg DAILY@0700 [facility] Administration Methylprednisolone Sodium Succinate 40 mg 05/20/17 10:00 05/21/17 10:31 Solu-Medrol - IVPB 40 mg DAILY [facility] Administration Metoprolol Tartrate 12.5 mg 05/14/17 22:00 05/21/17 23:28 Lopressor - PO 12.5 mg BID [facility] Administration Slow Release Ferrous 1 each 05/10/17 22:00 05/21/17 23:37 Sulfate (45mg PO Not Given Elemental Feso4) BID [facility] Pantoprazole Sodium 40 mg 05/17/17 10:15 05/21/17 12:39 Protonix - PO Not Given DAILY [facility] Ranitidine HCl 150 mg 05/08/17 22:00 05/21/17 23:27 Zantac - PO 150 mg BID [facility] Administration Senna 2 tab 05/09/17 10:00 05/21/17 12:39 Senna - PO Not Given DAILY [facility] Tamsulosin HCl 0.4 mg 05/15/17 08:30 05/21/17 10:38 Flomax - PO Not Given DAILY@0830 [facility] Tiotropium [place] 1 puff 05/09/17 13:00 05/21/17 10:32 Spiriva - IH 1 puff DAILY [facility] Administration Vital Signs Period Temp Pulse Resp BP Sys/Mitchell Pulse Ox Last 24 Hr 97.8 F-98.3 F 72-81 16-20 122-141/60-68 95 Constitutional: Yes: No Distress, Calm Cardiovascular: Yes: irregular Rate and Rhythm, S1, S2. No: Gallop, Murmur Respiratory: Yes: bibasilar dullness, poor effort. No: Accessory Muscle Use Extremities: No: Cold Edema: No Neurological: Yes: alert today, conversational. No: Seizure Psychiatric: No: Agitated no jaundice diaphoresis Labs: CBC, BMP 05/21/17 06:00 05/21/17 06:00 echo 05/19: mild, global LV hypo; nl RV; mild MR; mild ao root dilation (no RVSP) echo 10/2016: low nl lvef, nl lv size, nl rv, mild elena, mild mr/tr, rvsp 40-50 Echo mibi 10/2016: no ischemia head ct 05/14: chronic rt cerebellar infarct, no acute pathology. cxr 05/20: improved aeration of rt lung base. residular rt basilar atelectasis/ infiltrate with possible new minimal rt effusion. a/p: 86 Y/O Gentleman with a PMhx that includes CKD, CAD s/p pci to rca 2004 ( patent on cath 2006), PVD s/p le bypass/stents/amputations, HTN, Afib on AC, here with sob, weakness found to have pna. fatigue, sob: -bnp very high, but outpt lasix has not improved his sxs and here with no signs of vol overload so does not seem that chf causing his sxs. lasix held and patient has been on maintenance fluids. -imaging shows pna, mucus plugs, possibly aspirating, cont abx, steroids per ID/ pulm afib: - mental status changes during this admission --> head ct negative for bleed., had been on pradaxa but was switched to lovenox while unable to take po. - 05/21 Now able to take po but today with dark urine, ? hematuria and hgb/ platelets con't to trend down. Con't lovenox for now b/c of its short half life - unless hit panel positive. monitor for need to hold AC due to worsening thrombocytopenia or bleed. -rate controlled, cont low dose bb cad s/p remote pci: -stable -no signs acs -cont AC, statin. has been off bb/acei due to low bp as outpt, but started BB here for AF chronic diastolic chf: -bnp 23K (baseline 8-10K) -05/13: has been on lasix 40 po daily, wts ranging 151-157 here, suspect JVD on exam though he is asymptomatic. cxr 05/12 with mild incr interstl markings ? mild chf. given lasix 40mg IVP x 1 - 9/12: bp drop after lasix. today bicarb up to 38 and lethargic (baseline unknown to me). Would hold po lasix tomorrow, monitor for when to resume. K 4.5 , mg 2.5. can stop standing repletion. -05/15-: no signs vol overload, cont to hold home lasix - 05/20-: po intake improving but still decreased. no signs vol overload thus far, cont to hold home lasix htn: -stable hld: -cont home statin, trilipix for now. anemia: -chronic. monitor as above.
--- NOTE | 2017-05-22 10:43 | PN ---
Progress Note, [employer] APPLIER - Note Progress Note: Selected Entries 05/20/17 05/20/17 05/20/17 06:00 09:02 10:00 Breakfast 100% Lunch Supper 75% Temperature 97.0 F L 98 F 05/20/17 05/20/17 05/20/17 14:25 18:40 21:00 Breakfast Lunch 25% Supper 50% Temperature 97 F L 98.1 F 97.6 F 05/21/17 05/21/17 06:00 09:33 Breakfast 75% Lunch Supper Temperature 98.7 F Laboratory Tests 05/21/17 06:00 WBC 7.7 Selected Entries 05/20/17 05/20/17 05/20/17 09:02 14:25 18:40 Breakfast 100% Lunch 25% Supper 75% 50% Temperature 05/21/17 05/21/17 05/21/17 06:00 09:33 10:00 Breakfast 75% Lunch Supper Temperature 98.7 F 97.5 F L 05/21/17 05/21/17 05/22/17 14:00 18:39 06:01 Breakfast Lunch Supper 75% Temperature 98.3 F 97.8 F 97.9 F Educated new staff on feeding instructions. Encourage PO intake, especially supplements. Pt will benefit from STR for intensive swallowing therapy. Thinned out pureed diet maybe with added liquid ensure plus supplement for additional nourishment,,nectar thick liquid.Ensure compact. Calorie count in progress If insufficient po acceptance, may benefit from PEG for supplement nocturnal feedings.
[2017-05-22] MEDS: SENNOSIDES 8.6MG TABLET (FP) PO SCH (10:45)
[2017-05-22] MEDS: BRIMONIDINE TARTRATE 0.15% OPHTHALMIC 5 ML BOTTLE OD SCH ×2 (10:45→21:30)
[2017-05-22] MEDS: FERROUS SULFATE PO SCH (10:56)
[2017-05-22] MEDS: methylPREDNISolone NA SUCC 40 MG/1 ML VIAL IVPB SCH (11:25)
[2017-05-22] MEDS: ENOXAPARIN NA (PORCINE) 80 MG/0.8 ML DISP.SYRIN SQ SCH ×2 (11:26→21:44)
[2017-05-22] MEDS: TIOTROPIUM BROMIDE 18 MCG/INH (DEVICE W/ 5 CAPSULES) IH SCH (11:26)
[2017-05-22] MEDS: LACTOBACILLUS ACIDOPHILUS 1 EACH TAB (FP) PO SCH (11:28)
[2017-05-22] MEDS: CHOLECALCIFEROL (VITAMIN D3) 1,000 UNIT TABLET (FP) PO SCH (11:28)
[2017-05-22] MEDS: FLUTICASONE PROP 0.05% 16 GM NASAL SPRAY NS SCH (11:28)
[2017-05-22] MEDS: RANITIDINE HCL 150 MG TABLET (FP) PO SCH ×2 (11:29→21:29)
[2017-05-22] MEDS: METOPROLOL TARTRATE 25 MG TABLET (FP) PO SCH ×2 (11:29→21:29)
[2017-05-22] MEDS: PANTOPRAZOLE 40 MG TABLET (FP) PO SCH (11:35)
--- NOTE | 2017-05-22 12:51 | PN ---
Progress Note, Physician Chief Complaint: Mr Rivas complains of difficulty sleeping last night but otherwise says he is doing well. No cp, sob, n/v. - Current Medication List Current Medications: Active Medications Acetaminophen (Tylenol -) 650 mg PO Q6H PRN PRN Reason: FEVER OR PAIN Last Admin: 05/19/17 00:53 Dose: 650 mg Al Hydroxide/Mg Hydroxide (Mylanta Oral Suspension -) 30 ml PO Q6H PRN PRN Reason: INDIGESTION Last Admin: 05/13/17 13:00 Dose: 30 ml Albuterol/Ipratropium (Duoneb -) 1 amp NEB Q4H PRN PRN Reason: SHORTNESS OF BREATH Last Admin: 05/21/17 10:38 Dose: 1 amp Ascorbic Acid (Vitamin C -) 500 mg PO HS [facility] Last Admin: 05/21/17 23:28 Dose: 500 mg Atorvastatin Calcium (Lipitor -) 10 mg PO HS [facility] Last Admin: 05/21/17 23:28 Dose: 10 mg Brimonidine Tartrate (Alphagan 0.15% -) 1 drop OD BID [facility] Last Admin: 05/22/17 10:45 Dose: 1 drop Cholecalciferol (Vitamin D3 -) 1,000 unit PO DAILY [facility] Last Admin: 05/22/17 11:28 Dose: 1,000 unit Docusate Sodium (Colace -) 200 mg PO HS [facility] Last Admin: 05/21/17 23:34 Dose: Not Given Duloxetine HCl (Cymbalta -) 60 mg PO HS [facility] Last Admin: 05/21/17 23:34 Dose: Not Given Enoxaparin Sodium (Lovenox -) 70 mg SQ BID [facility] Last Admin: 05/22/17 11:26 Dose: 70 mg Fluticasone Propionate (Flonase -) 2 spray NS DAILY [facility] Last Admin: 05/22/17 11:28 Dose: 2 sprays Gabapentin (Neurontin -) 600 mg PO BID [facility] Last Admin: 05/14/17 10:23 Dose: 600 mg Sodium Chloride (Normal Saline -) 1,000 mls @ 50 mls/hr IV ASDIR [facility] Last Admin: 05/22/17 06:06 Dose: Not Given Meropenem 1 gm/ Dextrose 100 mls @ 100 mls/hr IVPB Q8H-IV [facility] PRN Reason: Protocol Last Admin: 05/22/17 12:06 Dose: 100 mls/hr Lactobacillus Acidophilus (Bacid -) 1 tab PO DAILY [facility] Last Admin: 05/22/17 11:28 Dose: 1 tab Levothyroxine Sodium (Synthroid -) 50 mcg PO DAILY@0700 [facility] Last Admin: 05/22/17 07:49 Dose: 50 mcg Methylprednisolone Sodium Succinate (Solu-Medrol -) 40 mg IVPB DAILY [facility] Last Admin: 05/22/17 11:25 Dose: 40 mg Metoprolol Tartrate (Lopressor -) 12.5 mg PO BID [facility] Last Admin: 05/22/17 11:29 Dose: 12.5 mg Ranitidine HCl (Zantac -) 150 mg PO BID [facility] Last Admin: 05/22/17 11:29 Dose: 150 mg Senna (Senna -) 2 tab PO DAILY [facility] Last Admin: 05/22/17 10:45 Dose: 2 tab Tiotropium [place] (Spiriva -) 1 puff IH DAILY [facility] Last Admin: 05/22/17 11:26 Dose: 1 puff - Objective Vital Signs: Vital Signs Temperature 36.6 C 05/22/17 06:01 Pulse Rate 81 05/22/17 06:01 Respiratory Rate 16 05/22/17 06:01 Blood Pressure 141/68 05/22/17 06:01 O2 Sat by Pulse Oximetry (%) 95 05/21/17 21:00 Constitutional: Yes: Well Nourished, No Distress, Calm Cardiovascular: Yes: Regular Rate and Rhythm. No: Gallop, Murmur, Rub Respiratory: Yes: Regular, CTA Bilaterally, On Nasal O2. No: Rales, Rhonchi, Wheezes Gastrointestinal: Yes: Normal Bowel Sounds, Soft. No: Distention, Tenderness Extremities: Yes: WNL Edema: No Labs: CBC, BMP 05/21/17 06:00 05/21/17 06:00 Problem List - Problems (1) Pneumonia Code(s): J18.9 - PNEUMONIA, UNSPECIFIED ORGANISM Qualifiers: Laterality: right Lung location: lower lobe of lung (2) Alkalosis, metabolic Code(s): E87.3 - ALKALOSIS (3) Atrial fibrillation Code(s): I48.91 - UNSPECIFIED ATRIAL FIBRILLATION Qualifiers: Atrial fibrillation type: chronic Qualified Code(s): I48.2 - Chronic atrial fibrillation (4) CHF (congestive heart failure) Code(s): I50.9 - HEART FAILURE, UNSPECIFIED Qualifiers: Congestive heart failure type: unspecified congestive heart failure type Congestive heart failure chronicity: chronic Qualified Code(s): I50.9 - Heart failure, unspecified (5) GERD (gastroesophageal reflux disease) Code(s): K21.9 - GASTRO-ESOPHAGEAL REFLUX DISEASE WITHOUT ESOPHAGITIS (6) HTN (hypertension) Code(s): I10 - ESSENTIAL (PRIMARY) HYPERTENSION (7) Hyperlipemia Code(s): E78.5 - HYPERLIPIDEMIA, UNSPECIFIED (8) Hypothyroidism Code(s): E03.9 - HYPOTHYROIDISM, UNSPECIFIED (9) PVD (peripheral vascular disease) Code(s): I73.9 - PERIPHERAL VASCULAR DISEASE, UNSPECIFIED (10) Acute respiratory failure Code(s): J96.00 - ACUTE RESPIRATORY FAILURE, UNSP W HYPOXIA OR HYPERCAPNIA Qualifiers: Respiratory failure complication: hypoxia and hypercapnia Qualified Code(s): J96.01 - Acute respiratory failure with hypoxia (11) Acute respiratory acidosis Code(s): E87.2 - ACIDOSIS (12) Hematuria Code(s): R31.9 - HEMATURIA, UNSPECIFIED Assessment/Plan (1) Community acquired pneumonia Assessment/Plan: -patient with post obstructive pneumonia, s/p expactoration of mucus plug -ID following -continue merrem per ID -improving (2) Respiratory acidosis Assessment/Plan: -resolved -no longer needing bipap -pulmonary following Code(s): (3) Atrial fibrillation Assessment/Plan: -controlled -pradaxa changed to lovenox secondary to swallowing Code(s): I48.91 - UNSPECIFIED ATRIAL FIBRILLATION Qualifiers: Atrial fibrillation type: chronic Qualified Code(s): I48.2 - Chronic atrial fibrillation (4) CHF (congestive heart failure) Assessment/Plan: -ECHO reviewed and cardiology following -not in exacerbation Code(s): I50.9 - HEART FAILURE, UNSPECIFIED Qualifiers: Congestive heart failure type: unspecified congestive heart failure type Congestive heart failure chronicity: chronic Qualified Code(s): I50.9 - Heart failure, unspecified (5) GERD (gastroesophageal reflux disease) Assessment/Plan: -continue zantac Code(s): K21.9 - GASTRO-ESOPHAGEAL REFLUX DISEASE WITHOUT ESOPHAGITIS (6) HTN (hypertension) Assessment/Plan: -controlled -continue lasix Code(s): I10 - ESSENTIAL (PRIMARY) HYPERTENSION (7) Hyperlipemia Assessment/Plan: -continue lipitor -hold fenofibrate secondary to inability to crush Code(s): E78.5 - HYPERLIPIDEMIA, UNSPECIFIED (8) Hypothyroidism Assessment/Plan: -continue synthroid Code(s): E03.9 - HYPOTHYROIDISM, UNSPECIFIED (9) PVD (peripheral vascular disease) Assessment/Plan: -currently on lovenox -does not complain of claudication Code(s): I73.9 - PERIPHERAL VASCULAR DISEASE, UNSPECIFIED (10) Urinary retention -d/c flomax secondary to inability to crush -urology consult for this and hematuria (11) Metabolic encephalopathy -resolved (12) Acute respiratory failure -pulmonary following -continue steroid taper -continue bronchodilators -oxygen support as needed -much improved (13) Uremia -improving (14) Anemia -iron studies negative -check B12 and folate -? secondary to hematuria (15) Thrombocytopenia -? secondary to lovenox -check HIT antibodies -if continues to decrease, change back to pradaxa (16) Hematuria -improved today -urology consult
--- NOTE | 2017-05-22 13:59 | CON.GU ---
Consult Consult Specialty:: Urology Referred by:: Dr Chaney Reason for Consultation:: Gross hematuria - History of Present Illness Chief Complaint: Gross hematuria - History Source History Provided By: Medical Record - Past Medical History SKIAGRAPHER: Yes: Peripheral Neuropathy Cardio/Vascular: Yes: AFIB, CAD, CHF, HTN, Hyperlipdemia Pulmonary: Yes: Pneumonia Gastrointestinal: Yes: Diverticulosis, GI Bleed, Hemorrhoids, Hiatal Hernia Renal/: Yes: Renal Inusuff Infectious Disease: Yes: Other (previous sepsis) Musculoskeletal: Yes: Osteoarthritis, Other (right foot drop) ENT: Yes: Other (dysphagia, hoarseness, ) Dermatology: Yes: Basal Cell (face), Other (Left muslim with local extension and hematoma) - Past Surgical History Past Surgical History: Yes: Bypass (left fem-pop), CABG (x3 2004), Cholecystectomy, Joint Replacement (bilateral knees), Orchiectomy (unilateral for testicular injury at 18yrs of age) - Alcohol/Substance Use Hx Alcohol Use: No History of Substance Use: reports: None - Smoking History Smoking history: Former smoker Have you smoked in the past 12 months: No Aproximately how many cigarettes per day: 0 If you are a former smoker, when did you quit?: 1983 - Social History Usual Living Arrangement: With Spouse ADL: Support Services (In [place] post) 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) History of Recent Travel: No Home Medications - Allergies Allergies/Adverse Reactions: Allergies Allergy/AdvReac Type Severity Reaction Status Date / Time Penicillins Allergy Intermediate Rash Verified 05/08/17 14:14 - Home Medications Home Medications: Ambulatory Orders Alpha Lipoic Acid [Lipoic Acid] 200 mg PO DAILY 12/12/15 Ascorbic Acid [Vitamin C] 500 mg PO HS 12/12/15 Atorvastatin Ca [Lipitor] 10 mg PO HS 12/12/15 Brimonidine Tartrate [Alphagan 0.15% -] 1 drop OD BID 12/12/15 Cholecalciferol (Vitamin D3) [Vitamin D] 1,000 unit PO DAILY 12/12/15 Dabigatran Etexilate Mesylate [Pradaxa -] 150 mg PO BID 12/12/15 Docusate Sodium [Colace -] 200 mg PO HS 12/12/15 Duloxetine HCl [Cymbalta] 60 mg PO HS 12/12/15 Fenofibrate Nanocrystallized [Tricor] 145 mg PO DAILY 12/12/15 Ferrous Sulfate [Slow Release Iron] 45 mg PO DAILY 12/12/15 Fluticasone Prop 0.05% Nasal [Flonase -] 2 spray NS DAILY 12/12/15 Furosemide [Lasix -] 40 mg PO ASDIR 12/12/15 Levomefolate/B6/B12/Algal Oil [Metanx Capsule] 1 each PO BID 12/12/15 Levothyroxine [Synthroid -] 50 mcg PO DAILY 12/12/15 Magnesium Chloride [Magnesium Dr] 64 mg PO DAILY 12/12/15 Omeprazole [Prilosec] 40 mg PO DAILY 12/12/15 Potassium Chloride 20 meq PO DAILY 12/12/15 Sennosides [Senna Concentrate] 17.2 mg PO DAILY 12/12/15 Butenafine HCl [Mentax] 30 gm TP BID 05/08/17 Gabapentin 600 mg PO BID 05/08/17 Melatonin 3 mg PO DAILY 05/08/17 Family Disease History - Family Disease History Family Disease History: CA: Son (1 son from cancer, 1 son from alcohol abuse), Other: Father (old age), Mother (old age), Son Physical Exam- Vital Signs: Vital Signs Temperature 97.9 F 05/22/17 06:01 Pulse Rate 81 05/22/17 06:01 Respiratory Rate 16 05/22/17 06:01 Blood Pressure 141/68 05/22/17 06:01 O2 Sat by Pulse Oximetry (%) 95 05/21/17 21:00 HENT: Yes: WNL Renal/: Yes: WNL Kidneys: Yes: WNL Pelvis: Yes: WNL, Bladder Non Palpable Testicles: Yes: WNL, Descended Scrotum: Yes: WNL Penis: Yes: WNL Prostate Exam: Yes: Deferred Labs: CBC, BMP 05/21/17 06:00 05/21/17 06:00 Assessment/Plan 86 yo male w recent gross hematuria now clearing HCT 25.7 cr 0.7 Nelson to sd clear draining well Cont nelson as med necessary For voiding trial Renal sono if clinically/medically indicated If hematuria worsens then reconsult thank you
--- NOTE | 2017-05-22 14:38 | PN ---
Progress Note, Physician History of Present Illness: pulmonary alert,nad,-sob - Current Medication List Current Medications: Active Medications Acetaminophen (Tylenol -) 650 mg PO Q6H PRN PRN Reason: FEVER OR PAIN Last Admin: 05/19/17 00:53 Dose: 650 mg Al Hydroxide/Mg Hydroxide (Mylanta Oral Suspension -) 30 ml PO Q6H PRN PRN Reason: INDIGESTION Last Admin: 05/13/17 13:00 Dose: 30 ml Albuterol/Ipratropium (Duoneb -) 1 amp NEB Q4H PRN PRN Reason: SHORTNESS OF BREATH Last Admin: 05/21/17 10:38 Dose: 1 amp Amino Acids (Prosource No Carb Liquid Pkt) 30 ml PO BID@0800,1730 [facility] Ascorbic Acid (Vitamin C -) 500 mg PO HS [facility] Last Admin: 05/21/17 23:28 Dose: 500 mg Atorvastatin Calcium (Lipitor -) 10 mg PO HS [facility] Last Admin: 05/21/17 23:28 Dose: 10 mg Brimonidine Tartrate (Alphagan 0.15% -) 1 drop OD BID [facility] Last Admin: 05/22/17 10:45 Dose: 1 drop Cholecalciferol (Vitamin D3 -) 1,000 unit PO DAILY [facility] Last Admin: 05/22/17 11:28 Dose: 1,000 unit Docusate Sodium (Colace -) 200 mg PO HS [facility] Last Admin: 05/21/17 23:34 Dose: Not Given Duloxetine HCl (Cymbalta -) 60 mg PO HS [facility] Last Admin: 05/21/17 23:34 Dose: Not Given Enoxaparin Sodium (Lovenox -) 70 mg SQ BID [facility] Last Admin: 05/22/17 11:26 Dose: 70 mg Fluticasone Propionate (Flonase -) 2 spray NS DAILY [facility] Last Admin: 05/22/17 11:28 Dose: 2 sprays Gabapentin (Neurontin -) 600 mg PO BID [facility] Last Admin: 05/14/17 10:23 Dose: 600 mg Sodium Chloride (Normal Saline -) 1,000 mls @ 50 mls/hr IV ASDIR [facility] Last Admin: 05/22/17 06:06 Dose: Not Given Meropenem 1 gm/ Dextrose 100 mls @ 100 mls/hr IVPB Q8H-IV MICHAEL PRN Reason: Protocol Last Admin: 05/22/17 12:06 Dose: 100 mls/hr Lactobacillus Acidophilus (Bacid -) 1 tab PO DAILY [facility] Last Admin: 05/22/17 11:28 Dose: 1 tab Levothyroxine Sodium (Synthroid -) 50 mcg PO DAILY@0700 [facility] Last Admin: 05/22/17 07:49 Dose: 50 mcg Methylprednisolone Sodium Succinate (Solu-Medrol -) 40 mg IVPB DAILY [facility] Last Admin: 05/22/17 11:25 Dose: 40 mg Metoprolol Tartrate (Lopressor -) 12.5 mg PO BID [facility] Last Admin: 05/22/17 11:29 Dose: 12.5 mg Ranitidine HCl (Zantac -) 150 mg PO BID [facility] Last Admin: 05/22/17 11:29 Dose: 150 mg Senna (Senna -) 2 tab PO DAILY [facility] Last Admin: 05/22/17 10:45 Dose: 2 tab Tiotropium [place] (Spiriva -) 1 puff IH DAILY [facility] Last Admin: 05/22/17 11:26 Dose: 1 puff - Objective Vital Signs: Vital Signs Temperature 98.9 F 05/22/17 14:04 Pulse Rate 77 05/22/17 14:04 Respiratory Rate 18 05/22/17 14:04 Blood Pressure 141/71 05/22/17 14:04 O2 Sat by Pulse Oximetry (%) 95 05/21/17 21:00 Constitutional: Yes: Well Nourished, Calm Eyes: Yes: WNL HENT: Yes: WNL Neck: Yes: WNL Cardiovascular: Yes: Pulse Irregular, S1, S2 Respiratory: Yes: Rales (crackles r base) Gastrointestinal: Yes: Normal Bowel Sounds, Soft Extremities: Yes: WNL Edema: No Assessment/Plan Problem List - Problems (1) Shortness of breath Code(s): R06.02 - SHORTNESS OF BREATH (2) Atrial fibrillation Code(s): I48.91 - UNSPECIFIED ATRIAL FIBRILLATION (3) CHF (congestive heart failure) Code(s): I50.9 - HEART FAILURE, UNSPECIFIED (4) HTN (hypertension) Code(s): I10 - ESSENTIAL (PRIMARY) HYPERTENSION (5) Malignant neoplasm of skin of jehovah's witness Code(s): C44.309 - UNSP MALIGNANT NEOPLASM OF SKIN OF OTHER PARTS OF FACE (6) PVD (peripheral vascular disease) Code(s): I73.9 - PERIPHERAL VASCULAR DISEASE, UNSPECIFIED 7 PNEUMONIA improving 8 Altered mental status improved Assessment/Plan O2 /NIPPV ABX PER ID Peggy BD [place] PRN AC DR PELLETIER
--- NOTE | 2017-05-22 16:33 | PN ---
Progress Note, Physician History of Present Illness: patient stable much better more awake and alert patient had hematuria evaluated by - Current Medication List Current Medications: Active Medications Acetaminophen (Tylenol -) 650 mg PO Q6H PRN PRN Reason: FEVER OR PAIN Last Admin: 05/19/17 00:53 Dose: 650 mg Al Hydroxide/Mg Hydroxide (Mylanta Oral Suspension -) 30 ml PO Q6H PRN PRN Reason: INDIGESTION Last Admin: 05/13/17 13:00 Dose: 30 ml Albuterol/Ipratropium (Duoneb -) 1 amp NEB Q4H PRN PRN Reason: SHORTNESS OF BREATH Last Admin: 05/21/17 10:38 Dose: 1 amp Amino Acids (Prosource No Carb Liquid Pkt) 30 ml PO BID@0800,1730 [facility] Ascorbic Acid (Vitamin C -) 500 mg PO HS [facility] Last Admin: 05/21/17 23:28 Dose: 500 mg Atorvastatin Calcium (Lipitor -) 10 mg PO HS [facility] Last Admin: 05/21/17 23:28 Dose: 10 mg Brimonidine Tartrate (Alphagan 0.15% -) 1 drop OD BID [facility] Last Admin: 05/22/17 10:45 Dose: 1 drop Cholecalciferol (Vitamin D3 -) 1,000 unit PO DAILY [facility] Last Admin: 05/22/17 11:28 Dose: 1,000 unit Docusate Sodium (Colace -) 200 mg PO HS [facility] Last Admin: 05/21/17 23:34 Dose: Not Given Duloxetine HCl (Cymbalta -) 60 mg PO HS [facility] Last Admin: 05/21/17 23:34 Dose: Not Given Enoxaparin Sodium (Lovenox -) 70 mg SQ BID [facility] Last Admin: 05/22/17 11:26 Dose: 70 mg Fluticasone Propionate (Flonase -) 2 spray NS DAILY [facility] Last Admin: 05/22/17 11:28 Dose: 2 sprays Gabapentin (Neurontin -) 600 mg PO BID [facility] Last Admin: 05/14/17 10:23 Dose: 600 mg Sodium Chloride (Normal Saline -) 1,000 mls @ 50 mls/hr IV ASDIR [facility] Last Admin: 05/22/17 15:25 Dose: 50 mls/hr Meropenem 1 gm/ Dextrose 100 mls @ 100 mls/hr IVPB Q8H-IV MICHAEL PRN Reason: Protocol Last Admin: 05/22/17 12:06 Dose: 100 mls/hr Lactobacillus Acidophilus (Bacid -) 1 tab PO DAILY [facility] Last Admin: 05/22/17 11:28 Dose: 1 tab Levothyroxine Sodium (Synthroid -) 50 mcg PO DAILY@0700 [facility] Last Admin: 05/22/17 07:49 Dose: 50 mcg Methylprednisolone Sodium Succinate (Solu-Medrol -) 40 mg IVPB DAILY [facility] Last Admin: 05/22/17 11:25 Dose: 40 mg Metoprolol Tartrate (Lopressor -) 12.5 mg PO BID [facility] Last Admin: 05/22/17 11:29 Dose: 12.5 mg Ranitidine HCl (Zantac -) 150 mg PO BID [facility] Last Admin: 05/22/17 11:29 Dose: 150 mg Senna (Senna -) 2 tab PO DAILY [facility] Last Admin: 05/22/17 10:45 Dose: 2 tab Tiotropium [place] (Spiriva -) 1 puff IH DAILY [facility] Last Admin: 05/22/17 11:26 Dose: 1 puff - Objective Vital Signs: Vital Signs Temperature 98.9 F 05/22/17 14:04 Pulse Rate 77 05/22/17 14:04 Respiratory Rate 18 05/22/17 14:04 Blood Pressure 141/71 05/22/17 14:04 O2 Sat by Pulse Oximetry (%) 95 05/21/17 21:00 Constitutional: Yes: No Distress, Calm Cardiovascular: Yes: Regular Rate and Rhythm Respiratory: Yes: Regular, Other Gastrointestinal: Yes: Normal Bowel Sounds, Soft Musculoskeletal: Yes: WNL Extremities: Yes: WNL Neurological: Yes: Alert, Oriented Psychiatric: Yes: Alert Labs: CBC, BMP 05/21/17 06:00 05/21/17 06:00 Assessment/Plan Problem List - Problems (1) Pneumonia Code(s): J18.9 - PNEUMONIA, UNSPECIFIED ORGANISM Qualifiers: Laterality: right Lung location: lower lobe of lung (2) Alkalosis, metabolic Code(s): E87.3 - ALKALOSIS (3) Atrial fibrillation Code(s): I48.91 - UNSPECIFIED ATRIAL FIBRILLATION Qualifiers: Atrial fibrillation type: chronic Qualified Code(s): I48.2 - Chronic atrial fibrillation (4) CHF (congestive heart failure) Code(s): I50.9 - HEART FAILURE, UNSPECIFIED Qualifiers: Congestive heart failure type: unspecified congestive heart failure type Congestive heart failure chronicity: chronic Qualified Code(s): I50.9 - Heart failure, unspecified (5) GERD (gastroesophageal reflux disease) Code(s): K21.9 - GASTRO-ESOPHAGEAL REFLUX DISEASE WITHOUT ESOPHAGITIS (6) HTN (hypertension) Code(s): I10 - ESSENTIAL (PRIMARY) HYPERTENSION (7) Hyperlipemia Code(s): E78.5 - HYPERLIPIDEMIA, UNSPECIFIED (8) Hypothyroidism Code(s): E03.9 - HYPOTHYROIDISM, UNSPECIFIED (9) PVD (peripheral vascular disease) Code(s): I73.9 - PERIPHERAL VASCULAR DISEASE, UNSPECIFIED Assessment/Plan (1) Community acquired pneumonia (2) Alkalosis, metabolic Code(s): E87.3 - ALKALOSIS (3) Atrial fibrillation Code(s): I48.91 - UNSPECIFIED ATRIAL FIBRILLATION Qualifiers: Atrial fibrillation type: chronic Qualified Code(s): I48.2 - Chronic atrial fibrillation (4) CHF (congestive heart failure) Code(s): I50.9 - HEART FAILURE, UNSPECIFIED Qualifiers: Congestive heart failure type: unspecified congestive heart failure type Congestive heart failure chronicity: chronic Qualified Code(s): I50.9 - Heart failure, unspecified (5) GERD (gastroesophageal reflux disease) Code(s): K21.9 - GASTRO-ESOPHAGEAL REFLUX DISEASE WITHOUT ESOPHAGITIS (6) HTN (hypertension) Code(s): I10 - ESSENTIAL (PRIMARY) HYPERTENSION (7) Hyperlipemia Code(s): E78.5 - HYPERLIPIDEMIA, UNSPECIFIED (8) Hypothyroidism Code(s): E03.9 - HYPOTHYROIDISM, UNSPECIFIED (9) PVD (peripheral vascular disease) Code(s): I73.9 - PERIPHERAL VASCULAR DISEASE, UNSPECIFIED altered mental status which has improved plan continue abx continue current mgmt rest as per primary incentive kimberly will stop abx by saturday wbc normal
[2017-05-22] MEDS: AMINO ACIDS/PROTEIN HYDROLYS 30 ML LIQUID.PKT PO SCH (17:22)
[2017-05-22] MEDS: ASCORBIC ACID 500 MG TABLET (FP) PO SCH (21:28)
[2017-05-22] MEDS: DOCUSATE SODIUM 100 MG CAPSULE (FP) PO SCH (21:28)
[2017-05-22] MEDS: ATORVASTATIN CA 10 MG TABLET (FP) PO SCH (21:28)
[2017-05-22] MEDS: DULoxetine HCL 30 MG CAPSULE.DR (FP) PO SCH (21:29)
[2017-05-23] MEDS: MEROPENEM 1 GM in DEXTROSE 5%-WATER - 100 ML IVPB SCH ×3 (01:23→18:21)
[2017-05-23] MEDS: LEVOTHYROXINE NA 50 MCG TABLET (FP) PO SCH (06:05)
[2017-05-23 07:26] LABS: MCHC 33.7 g/dl (32.0-35.9); MEAN CELL VOLUME 103.8 fl (80-96); MEAN PLT VOLUME 9.4 fl (7.5-11.1); PLATELET COUNT 119 K/MM3 (134-434); WHITE BLOOD COUNT 8.7 K/mm3 (4.0-10.0)
[2017-05-23 08:02] LABS: ANION GAP 8 (8-16); CALCIUM 8.5 mg/dL (8.5-10.1); CO2 30 mmol/L (21-32); CREATININE 0.5 mg/dL (0.7-1.3); GLUCOSE,RANDOM 72 mg/dL (74-106); MAGNESIUM 1.7 mg/dL (1.8-2.4); PHOSPHOROUS 2.5 mg/dL (2.5-4.9)
[2017-05-23 08:15] LABS: METAMYELOCYTE 1 % (0-2); MYELOCYTE 1 % (0-2); TOTAL CELLS COUNTED 100
[2017-05-23] MEDS: AMINO ACIDS/PROTEIN HYDROLYS 30 ML LIQUID.PKT PO SCH ×2 (08:43→17:24)
--- NOTE | 2017-05-23 09:55 | PN ---
Progress Note (short form) - Note Progress Note: PULMONARY States breathing is better. Minimal cough mostly nonproductive. No fevers or chills. Last Vital Signs Temp Pulse Resp BP Pulse Ox 97.6 F 69 20 132/66 96 05/23/17 06:14 05/23/17 06:14 05/23/17 06:14 05/23/17 06:14 05/22/17 21:00 Gen: NAD at rest Heart: RRR Lung: decreased breath sounds at the bases Abd: soft, nontender Ext: no edema CBC, BMP 05/23/17 06:00 05/23/17 06:00 Active Medications Acetaminophen (Tylenol -) 650 mg PO Q6H PRN PRN Reason: FEVER OR PAIN Last Admin: 05/19/17 00:53 Dose: 650 mg Al Hydroxide/Mg Hydroxide (Mylanta Oral Suspension -) 30 ml PO Q6H PRN PRN Reason: INDIGESTION Last Admin: 05/13/17 13:00 Dose: 30 ml Albuterol/Ipratropium (Duoneb -) 1 amp NEB Q4H PRN PRN Reason: SHORTNESS OF BREATH Last Admin: 05/21/17 10:38 Dose: 1 amp Amino Acids (Prosource No Carb Liquid Pkt) 30 ml PO BID@0800,1730 [facility] Last Admin: 05/23/17 08:43 Dose: 30 ml Ascorbic Acid (Vitamin C -) 500 mg PO HS [facility] Last Admin: 05/22/17 21:28 Dose: 500 mg Atorvastatin Calcium (Lipitor -) 10 mg PO [facility] Last Admin: 05/22/17 21:28 Dose: 10 mg Brimonidine Tartrate (Alphagan 0.15% -) 1 drop OD BID [facility] Last Admin: 05/22/17 21:30 Dose: 1 drop Cholecalciferol (Vitamin D3 -) 1,000 unit PO DAILY [facility] Last Admin: 05/22/17 11:28 Dose: 1,000 unit Docusate Sodium (Colace -) 200 mg PO HS [facility] Last Admin: 05/22/17 21:28 Dose: 200 mg Duloxetine HCl (Cymbalta -) 60 mg PO [facility] Last Admin: 05/22/17 21:29 Dose: 60 mg Enoxaparin Sodium (Lovenox -) 70 mg SQ BID [facility] Last Admin: 05/22/17 21:44 Dose: 70 mg Fluticasone Propionate (Flonase -) 2 spray NS DAILY [facility] Last Admin: 05/22/17 11:28 Dose: 2 sprays Gabapentin (Neurontin -) 600 mg PO BID [facility] Last Admin: 05/14/17 10:23 Dose: 600 mg Sodium Chloride (Normal Saline -) 1,000 mls @ 50 mls/hr IV ASDIR [facility] Last Admin: 05/22/17 19:58 Dose: 50 mls/hr Meropenem 1 gm/ Dextrose 100 mls @ 100 mls/hr IVPB Q8H-IV MICHAEL PRN Reason: Protocol Last Admin: 05/23/17 01:23 Dose: 100 mls/hr Lactobacillus Acidophilus (Bacid -) 1 tab PO DAILY [facility] Last Admin: 05/22/17 11:28 Dose: 1 tab Levothyroxine Sodium (Synthroid -) 50 mcg PO DAILY@0700 [facility] Last Admin: 05/23/17 06:05 Dose: 50 mcg Methylprednisolone Sodium Succinate (Solu-Medrol -) 40 mg IVPB DAILY [facility] Last Admin: 05/22/17 11:25 Dose: 40 mg Metoprolol Tartrate (Lopressor -) 12.5 mg PO BID [facility] Last Admin: 05/22/17 21:29 Dose: 12.5 mg Ranitidine HCl (Zantac -) 150 mg PO BID [facility] Last Admin: 05/22/17 21:29 Dose: 150 mg Senna (Senna -) 2 tab PO DAILY [facility] Last Admin: 05/22/17 10:45 Dose: 2 tab Tiotropium [place] (Spiriva -) 1 puff IH DAILY [facility] Last Admin: 05/22/17 11:26 Dose: 1 puff A/P Pneumonia Atrial Fibrillation LV Diastolic Dysfunction CAD HTN Hyperlipidemia - complete antibiotics per ID - continue hold lasix as pt appears dry - can change steroids to PO - inhaled bronchodilators - rate controlled - continue anticoagulation
--- NOTE | 2017-05-23 10:22 | PN ---
Progress Note (short form) - Note Progress Note: s: no cp palps dizzy, sob better, eating better Current Medications Generic Name Dose Route Start Last Admin Trade Name Freq PRN Reason Stop Dose Admin Acetaminophen 650 mg 05/08/17 18:51 05/19/17 00:53 Tylenol - PO 650 mg Q6H PRN Administration FEVER OR PAIN Al Hydroxide/Mg Hydroxide 30 ml 05/13/17 12:50 05/13/17 13:00 Mylanta Oral Suspension - PO 30 ml Q6H PRN Administration INDIGESTION Albuterol/Ipratropium 1 amp 05/19/17 17:58 05/21/17 10:38 Duoneb - NEB 1 amp Q4H PRN Administration SHORTNESS OF BREATH Amino Acids 30 ml 05/22/17 17:30 05/23/17 08:43 Prosource No Carb Liquid Pkt PO 30 ml BID@0800,1730 MICHAEL Administration Ascorbic Acid 500 mg 05/08/17 22:00 05/22/17 21:28 Vitamin C - PO 500 mg HS MICHAEL Administration Atorvastatin Calcium 10 mg 05/08/17 22:00 05/22/17 21:28 Lipitor - PO 10 mg HS MICHAEL Administration Brimonidine Tartrate 1 drop 05/08/17 22:00 05/22/17 21:30 Alphagan 0.15% - OD 1 drop BID MICHAEL Administration Cholecalciferol 1,000 unit 05/09/17 10:00 05/22/17 11:28 Vitamin D3 - PO 1,000 unit DAILY MICHAEL Administration Docusate Sodium 200 mg 05/08/17 22:00 05/22/17 21:28 Colace - PO 200 mg HS MICHAEL Administration Duloxetine HCl 60 mg 05/08/17 22:00 05/22/17 21:29 Cymbalta - PO 60 mg HS MICHAEL Administration Enoxaparin Sodium 70 mg 05/15/17 22:15 05/22/17 21:44 Lovenox - SQ 70 mg BID MICHAEL Administration Fluticasone Propionate 2 spray 05/09/17 10:00 05/22/17 11:28 Flonase - NS 2 sprays DAILY MICHAEL Administration Gabapentin 600 mg 05/08/17 22:00 05/14/17 10:23 Neurontin - PO 600 mg BID MICHAEL Administration Sodium Chloride 1,000 mls @ 50 mls/hr 05/15/17 02:00 05/22/17 19:58 Normal Saline - IV 50 mls/hr ASDIR MICHAEL Administration Meropenem 1 gm/ Dextrose 100 mls @ 100 mls/hr 05/15/17 14:00 05/23/17 01:23 IVPB 100 mls/hr Q8H-IV MICHAEL Administration Protocol Lactobacillus Acidophilus 1 tab 05/10/17 11:00 05/22/17 11:28 Bacid - PO 1 tab DAILY MICHAEL Administration Levothyroxine Sodium 50 mcg 05/09/17 07:00 05/23/17 06:05 Synthroid - PO 50 mcg DAILY@0700 MICHAEL Administration Metoprolol Tartrate 12.5 mg 05/14/17 22:00 05/22/17 21:29 Lopressor - PO 12.5 mg BID MICHAEL Administration Prednisone 30 mg 05/23/17 10:00 Deltasone - PO DAILY MICHAEL Ranitidine HCl 150 mg 05/08/17 22:00 05/22/17 21:29 Zantac - PO 150 mg BID MICHAEL Administration Senna 2 tab 05/09/17 10:00 05/22/17 10:45 Senna - PO 2 tab DAILY MICHAEL Administration Tiotropium [place] 1 puff 05/09/17 13:00 05/22/17 11:26 Spiriva - IH 1 puff DAILY MICHAEL Administration Vital Signs Period Temp Pulse Resp BP Sys/Mitchell Pulse Ox Last 24 Hr 97.5 F-100 F 69-78 18-20 128-141/64-75 96-96 Constitutional: Yes: No Distress, Calm Cardiovascular: Yes: irregular Rate and Rhythm, S1, S2. No: Gallop, Murmur Respiratory: Yes: bibasilar dullness, poor effort. No: Accessory Muscle Use Extremities: No: Cold Edema: No Neurological: Yes: alert today, conversational. No: Seizure Psychiatric: No: Agitated no jaundice diaphoresis Labs: CBC, BMP 05/23/17 06:00 05/23/17 06:00 echo 05/2017: mild, global LV hypo; nl RV; mild MR; mild ao root dilation (no RVSP) echo 10/2016: low nl lvef, nl lv size, nl rv, mild elena, mild mr/tr, rvsp 40-50 mibi 10/2016: no ischemia head ct 05/14: chronic rt cerebellar infarct, no acute pathology. a/p: 86 Y/O Gentleman with a PMhx that includes CKD, CAD s/p pci to rca 2004 ( patent on cath 2006), PVD s/p le bypass/stents/amputations, HTN, Afib on AC, here with sob, weakness found to have pna. fatigue, sob: -bnp very high, but outpt lasix has not improved his sxs and here with no signs of vol overload so does not seem that chf causing his sxs. lasix held and patient has been on maintenance fluids. -imaging shows pna, mucus plugs, possibly aspirating, cont abx, steroids per ID/ pulm afib: - mental status changes during this admission --> head ct negative for bleed., had been on pradaxa but was switched to lovenox while unable to take po. - 05/21 Now able to take po but with hematuria and hgb/platelets low. Con't lovenox for now b/c of its short half life, monitor need to hold AC due to worsening thrombocytopenia or bleed. -rate controlled, cont low dose bb cad s/p remote pci: -stable -no signs acs -cont AC, statin. has been off bb/acei due to low bp as outpt, but started BB here for AF chronic diastolic chf: -bnp 23K (baseline 8-10K) -05/13: has been on lasix 40 po daily, wts ranging 151-157 here, suspect JVD on exam though he is asymptomatic. cxr 05/12 with mild incr interstl markings ? mild chf. given lasix 40mg IVP x 1 - 05/14: bp drop after lasix. today bicarb up to 38 and lethargic (baseline unknown to me). Would hold po lasix tomorrow, monitor for when to resume. K 4.5 , mg 2.5. can stop standing repletion. -05/15-: no signs vol overload, cont to hold home lasix - 05/20-: po intake improving but still decreased. no signs vol overload thus far, cont to hold home lasix htn: -stable hld: -cont home statin, trilipix for now. anemia: -chronic. monitor as above.
[2017-05-23] MEDS ORDERED: PT OWN MED DRAWER 7, Y5N ONE (10:23)
[2017-05-23] MEDS: LACTOBACILLUS ACIDOPHILUS 1 EACH TAB (FP) PO SCH (10:29)
[2017-05-23] MEDS: METOPROLOL TARTRATE 25 MG TABLET (FP) PO SCH ×2 (10:29→21:02)
[2017-05-23] MEDS: CHOLECALCIFEROL (VITAMIN D3) 1,000 UNIT TABLET (FP) PO SCH (10:30)
[2017-05-23] MEDS: SENNOSIDES 8.6MG TABLET (FP) PO SCH (10:30)
[2017-05-23] MEDS: RANITIDINE HCL 150 MG TABLET (FP) PO SCH ×2 (10:31→21:02)
[2017-05-23] MEDS: FLUTICASONE PROP 0.05% 16 GM NASAL SPRAY NS SCH (10:33)
[2017-05-23] MEDS: TIOTROPIUM BROMIDE 18 MCG/INH (DEVICE W/ 5 CAPSULES) IH SCH (10:33)
[2017-05-23] MEDS: BRIMONIDINE TARTRATE 0.15% OPHTHALMIC 5 ML BOTTLE OD SCH ×2 (10:34→21:03)
[2017-05-23] MEDS: ENOXAPARIN NA (PORCINE) 80 MG/0.8 ML DISP.SYRIN SQ SCH (10:34)
[2017-05-23] MEDS ORDERED: FUROSEMIDE 40 MG/4 ML INJECTABLE VIAL IVPUSH ONE ×2 (12:49→16:45)
--- NOTE | 2017-05-23 12:50 | PN ---
Progress Note, Physician Chief Complaint: Mr Rivas says he is feeling good today. Denies cp, sob, n/v. Says his swallowing is perfect, however said he had an episode yesterday where he became short of breath that resolved after coughing up some phlegm. - Current Medication List Current Medications: Active Medications Acetaminophen (Tylenol -) 650 mg PO Q6H PRN PRN Reason: FEVER OR PAIN Last Admin: 05/19/17 00:53 Dose: 650 mg Al Hydroxide/Mg Hydroxide (Mylanta Oral Suspension -) 30 ml PO Q6H PRN PRN Reason: INDIGESTION Last Admin: 05/13/17 13:00 Dose: 30 ml Albuterol/Ipratropium (Duoneb -) 1 amp NEB Q4H PRN PRN Reason: SHORTNESS OF BREATH Last Admin: 05/21/17 10:38 Dose: 1 amp Amino Acids (Prosource No Carb Liquid Pkt) 30 ml PO BID@0800,1730 [facility] Last Admin: 05/23/17 08:43 Dose: 30 ml Ascorbic Acid (Vitamin C -) 500 mg PO HS [facility] Last Admin: 05/22/17 21:28 Dose: 500 mg Atorvastatin Calcium (Lipitor -) 10 mg PO HS [facility] Last Admin: 05/22/17 21:28 Dose: 10 mg Brimonidine Tartrate (Alphagan 0.15% -) 1 drop OD BID [facility] Last Admin: 05/23/17 10:34 Dose: 1 drop Cholecalciferol (Vitamin D3 -) 1,000 unit PO DAILY [facility] Last Admin: 05/23/17 10:30 Dose: 1,000 unit Docusate Sodium (Colace -) 200 mg PO HS [facility] Last Admin: 05/22/17 21:28 Dose: 200 mg Duloxetine HCl (Cymbalta -) 60 mg PO HS [facility] Last Admin: 05/22/17 21:29 Dose: 60 mg Fluticasone Propionate (Flonase -) 2 spray NS DAILY [facility] Last Admin: 05/23/17 10:33 Dose: 2 sprays Furosemide (Lasix Injection -) 20 mg IVPUSH ONCE ONE Stop: 05/23/17 12:50 Gabapentin (Neurontin -) 600 mg PO BID [facility] Last Admin: 05/14/17 10:23 Dose: 600 mg Sodium Chloride (Normal Saline -) 1,000 mls @ 50 mls/hr IV ASDIR [facility] Last Admin: 05/22/17 19:58 Dose: 50 mls/hr Meropenem 1 gm/ Dextrose 100 mls @ 100 mls/hr IVPB Q8H-IV [facility] PRN Reason: Protocol Last Admin: 05/23/17 10:31 Dose: 100 mls/hr Lactobacillus Acidophilus (Bacid -) 1 tab PO DAILY [facility] Last Admin: 05/23/17 10:29 Dose: 1 tab Levothyroxine Sodium (Synthroid -) 50 mcg PO DAILY@0700 [facility] Last Admin: 05/23/17 06:05 Dose: 50 mcg Metoprolol Tartrate (Lopressor -) 12.5 mg PO BID [facility] Last Admin: 05/23/17 10:29 Dose: 12.5 mg Prednisone (Deltasone -) 30 mg PO DAILY [facility] Ranitidine HCl (Zantac -) 150 mg PO BID [facility] Last Admin: 05/23/17 10:31 Dose: 150 mg Senna (Senna -) 2 tab PO DAILY [facility] Last Admin: 05/23/17 10:30 Dose: 2 tab Tiotropium [place] (Spiriva -) 1 puff IH DAILY [facility] Last Admin: 05/23/17 10:33 Dose: 1 puff - Objective Vital Signs: Vital Signs Temperature 36.2 C L 05/23/17 08:20 Pulse Rate 69 05/23/17 10:43 Respiratory Rate 20 05/23/17 08:20 Blood Pressure 131/65 05/23/17 08:20 O2 Sat by Pulse Oximetry (%) 96 05/23/17 10:43 Constitutional: Yes: No Distress, Calm, Pallor Cardiovascular: Yes: Pulse Irregular. No: Tachycardia, Gallop, Murmur, Rub Respiratory: Yes: Regular, CTA Bilaterally. No: Rales, Rhonchi, Wheezes Gastrointestinal: Yes: Normal Bowel Sounds, Soft. No: Distention, Tenderness Extremities: Yes: WNL Edema: No Labs: CBC, BMP 05/23/17 06:00 05/23/17 06:00 Problem List - Problems (1) Pneumonia Code(s): J18.9 - PNEUMONIA, UNSPECIFIED ORGANISM Qualifiers: Laterality: right Lung location: lower lobe of lung (2) Alkalosis, metabolic Code(s): E87.3 - ALKALOSIS (3) Atrial fibrillation Code(s): I48.91 - UNSPECIFIED ATRIAL FIBRILLATION Qualifiers: Atrial fibrillation type: chronic Qualified Code(s): I48.2 - Chronic atrial fibrillation (4) CHF (congestive heart failure) Code(s): I50.9 - HEART FAILURE, UNSPECIFIED Qualifiers: Congestive heart failure type: unspecified congestive heart failure type Congestive heart failure chronicity: chronic Qualified Code(s): I50.9 - Heart failure, unspecified (5) GERD (gastroesophageal reflux disease) Code(s): K21.9 - GASTRO-ESOPHAGEAL REFLUX DISEASE WITHOUT ESOPHAGITIS (6) HTN (hypertension) Code(s): I10 - ESSENTIAL (PRIMARY) HYPERTENSION (7) Hyperlipemia Code(s): E78.5 - HYPERLIPIDEMIA, UNSPECIFIED (8) Hypothyroidism Code(s): E03.9 - HYPOTHYROIDISM, UNSPECIFIED (9) PVD (peripheral vascular disease) Code(s): I73.9 - PERIPHERAL VASCULAR DISEASE, UNSPECIFIED (10) Acute respiratory failure Code(s): J96.00 - ACUTE RESPIRATORY FAILURE, UNSP W HYPOXIA OR HYPERCAPNIA Qualifiers: Respiratory failure complication: hypoxia and hypercapnia Qualified Code(s): J96.01 - Acute respiratory failure with hypoxia (11) Acute respiratory acidosis Code(s): E87.2 - ACIDOSIS (12) Hematuria Code(s): R31.9 - HEMATURIA, UNSPECIFIED Assessment/Plan (1) Community acquired pneumonia Assessment/Plan: -patient with post obstructive pneumonia, s/p expactoration of mucus plug -ID following -continue merrem per ID -improving (2) Respiratory acidosis Assessment/Plan: -resolved -no longer needing bipap -pulmonary following Code(s): (3) Atrial fibrillation Assessment/Plan: -rate controlled -continue metoprolol -d/c anticoagulants secondary to hematuria requiring transfusion Code(s): I48.91 - UNSPECIFIED ATRIAL FIBRILLATION Qualifiers: Atrial fibrillation type: chronic Qualified Code(s): I48.2 - Chronic atrial fibrillation (4) CHF (congestive heart failure) Assessment/Plan: -ECHO reviewed and cardiology following -not in exacerbation Code(s): I50.9 - HEART FAILURE, UNSPECIFIED Qualifiers: Congestive heart failure type: unspecified congestive heart failure type Congestive heart failure chronicity: chronic Qualified Code(s): I50.9 - Heart failure, unspecified (5) GERD (gastroesophageal reflux disease) Assessment/Plan: -continue zantac Code(s): K21.9 - GASTRO-ESOPHAGEAL REFLUX DISEASE WITHOUT ESOPHAGITIS (6) HTN (hypertension) Assessment/Plan: -controlled -continue lasix Code(s): I10 - ESSENTIAL (PRIMARY) HYPERTENSION (7) Hyperlipemia Assessment/Plan: -continue lipitor -hold fenofibrate secondary to inability to crush Code(s): E78.5 - HYPERLIPIDEMIA, UNSPECIFIED (8) Hypothyroidism Assessment/Plan: -continue synthroid Code(s): E03.9 - HYPOTHYROIDISM, UNSPECIFIED (9) PVD (peripheral vascular disease) Assessment/Plan: -holding lovenox -does not complain of claudication Code(s): I73.9 - PERIPHERAL VASCULAR DISEASE, UNSPECIFIED (10) Urinary retention -urology note reviewed -however still with significant hematuria -will hold lovenox as above (11) Metabolic encephalopathy -resolved (12) Acute respiratory failure -resolved -pulmonary following (13) Uremia -improving (14) Anemia -transfuse 2 units today -hematuria most likely source (15) Thrombocytopenia -? secondary to lovenox -check HIT antibodies -improving (16) Hematuria -urology consulted and following 35 minutes spent in discussing case with patient and
--- NOTE | 2017-05-23 14:10 | PN ---
Progress Note, Physician History of Present Illness: stable doing better still very weak - Current Medication List Current Medications: Active Medications Acetaminophen (Tylenol -) 650 mg PO Q6H PRN PRN Reason: FEVER OR PAIN Last Admin: 05/19/17 00:53 Dose: 650 mg Al Hydroxide/Mg Hydroxide (Mylanta Oral Suspension -) 30 ml PO Q6H PRN PRN Reason: INDIGESTION Last Admin: 05/13/17 13:00 Dose: 30 ml Albuterol/Ipratropium (Duoneb -) 1 amp NEB Q4H PRN PRN Reason: SHORTNESS OF BREATH Last Admin: 05/21/17 10:38 Dose: 1 amp Amino Acids (Prosource No Carb Liquid Pkt) 30 ml PO BID@0800,1730 [facility] Last Admin: 05/23/17 08:43 Dose: 30 ml Ascorbic Acid (Vitamin C -) 500 mg PO HS [facility] Last Admin: 05/22/17 21:28 Dose: 500 mg Atorvastatin Calcium (Lipitor -) 10 mg PO HS [facility] Last Admin: 05/22/17 21:28 Dose: 10 mg Brimonidine Tartrate (Alphagan 0.15% -) 1 drop OD BID [facility] Last Admin: 05/23/17 10:34 Dose: 1 drop Cholecalciferol (Vitamin D3 -) 1,000 unit PO DAILY [facility] Last Admin: 05/23/17 10:30 Dose: 1,000 unit Docusate Sodium (Colace -) 200 mg PO HS [facility] Last Admin: 05/22/17 21:28 Dose: 200 mg Duloxetine HCl (Cymbalta -) 60 mg PO HS [facility] Last Admin: 05/22/17 21:29 Dose: 60 mg Fluticasone Propionate (Flonase -) 2 spray NS DAILY [facility] Last Admin: 05/23/17 10:33 Dose: 2 sprays Gabapentin (Neurontin -) 600 mg PO BID [facility] Last Admin: 05/14/17 10:23 Dose: 600 mg Sodium Chloride (Normal Saline -) 1,000 mls @ 50 mls/hr IV ASDIR [facility] Last Admin: 05/22/17 19:58 Dose: 50 mls/hr Meropenem 1 gm/ Dextrose 100 mls @ 100 mls/hr IVPB Q8H-IV [facility] PRN Reason: Protocol Last Admin: 05/23/17 10:31 Dose: 100 mls/hr Lactobacillus Acidophilus (Bacid -) 1 tab PO DAILY [facility] Last Admin: 05/23/17 10:29 Dose: 1 tab Levothyroxine Sodium (Synthroid -) 50 mcg PO DAILY@0700 [facility] Last Admin: 05/23/17 06:05 Dose: 50 mcg Metoprolol Tartrate (Lopressor -) 12.5 mg PO BID [facility] Last Admin: 05/23/17 10:29 Dose: 12.5 mg Prednisone (Deltasone -) 30 mg PO DAILY [facility] Ranitidine HCl (Zantac -) 150 mg PO BID [facility] Last Admin: 05/23/17 10:31 Dose: 150 mg Senna (Senna -) 2 tab PO DAILY [facility] Last Admin: 05/23/17 10:30 Dose: 2 tab Tiotropium [place] (Spiriva -) 1 puff IH DAILY [facility] Last Admin: 05/23/17 10:33 Dose: 1 puff - Objective Vital Signs: Vital Signs Temperature 97.2 F L 05/23/17 08:20 Pulse Rate 69 05/23/17 10:43 Respiratory Rate 20 05/23/17 08:20 Blood Pressure 131/65 05/23/17 08:20 O2 Sat by Pulse Oximetry (%) 96 05/23/17 10:43 Constitutional: Yes: No Distress, Calm Cardiovascular: Yes: Regular Rate and Rhythm Respiratory: Yes: Regular, Rhonchi Gastrointestinal: Yes: Normal Bowel Sounds, Soft Musculoskeletal: Yes: WNL Extremities: Yes: WNL Neurological: Yes: Alert, Oriented Psychiatric: Yes: Alert, Oriented Labs: CBC, BMP 05/23/17 06:00 05/23/17 06:00 Assessment/Plan Problem List - Problems (1) Pneumonia Code(s): J18.9 - PNEUMONIA, UNSPECIFIED ORGANISM Qualifiers: Laterality: right Lung location: lower lobe of lung (2) Alkalosis, metabolic Code(s): E87.3 - ALKALOSIS (3) Atrial fibrillation Code(s): I48.91 - UNSPECIFIED ATRIAL FIBRILLATION Qualifiers: Atrial fibrillation type: chronic Qualified Code(s): I48.2 - Chronic atrial fibrillation (4) CHF (congestive heart failure) Code(s): I50.9 - HEART FAILURE, UNSPECIFIED Qualifiers: Congestive heart failure type: unspecified congestive heart failure type Congestive heart failure chronicity: chronic Qualified Code(s): I50.9 - Heart failure, unspecified (5) GERD (gastroesophageal reflux disease) Code(s): K21.9 - GASTRO-ESOPHAGEAL REFLUX DISEASE WITHOUT ESOPHAGITIS (6) HTN (hypertension) Code(s): I10 - ESSENTIAL (PRIMARY) HYPERTENSION (7) Hyperlipemia Code(s): E78.5 - HYPERLIPIDEMIA, UNSPECIFIED (8) Hypothyroidism Code(s): E03.9 - HYPOTHYROIDISM, UNSPECIFIED (9) PVD (peripheral vascular disease) Code(s): I73.9 - PERIPHERAL VASCULAR DISEASE, UNSPECIFIED Assessment/Plan (1) Community acquired pneumonia (2) Alkalosis, metabolic Code(s): E87.3 - ALKALOSIS (3) Atrial fibrillation Code(s): I48.91 - UNSPECIFIED ATRIAL FIBRILLATION Qualifiers: Atrial fibrillation type: chronic Qualified Code(s): I48.2 - Chronic atrial fibrillation (4) CHF (congestive heart failure) Code(s): I50.9 - HEART FAILURE, UNSPECIFIED Qualifiers: Congestive heart failure type: unspecified congestive heart failure type Congestive heart failure chronicity: chronic Qualified Code(s): I50.9 - Heart failure, unspecified (5) GERD (gastroesophageal reflux disease) Code(s): K21.9 - GASTRO-ESOPHAGEAL REFLUX DISEASE WITHOUT ESOPHAGITIS (6) HTN (hypertension) Code(s): I10 - ESSENTIAL (PRIMARY) HYPERTENSION (7) Hyperlipemia Code(s): E78.5 - HYPERLIPIDEMIA, UNSPECIFIED (8) Hypothyroidism Code(s): E03.9 - HYPOTHYROIDISM, UNSPECIFIED (9) PVD (peripheral vascular disease) Code(s): I73.9 - PERIPHERAL VASCULAR DISEASE, UNSPECIFIED altered mental status which has improved plan continue abx continue current mgmt rest as per primary incentive kimberly will stop abx by saturday patient if possible should get physio
[2017-05-23] MEDS: predniSONE 10 MG TABLET (UD) PO SCH (16:28)
[2017-05-23] MEDS: SODIUM CHLORIDE 1,000 ML IV SCH (19:53)
[2017-05-23] MEDS: DULoxetine HCL 30 MG CAPSULE.DR (FP) PO SCH (21:01)
[2017-05-23] MEDS: ASCORBIC ACID 500 MG TABLET (FP) PO SCH (21:02)
[2017-05-23] MEDS: ATORVASTATIN CA 10 MG TABLET (FP) PO SCH (21:02)
[2017-05-23] MEDS: DOCUSATE SODIUM 100 MG CAPSULE (FP) PO SCH (21:02)
[2017-05-24] MEDS: SODIUM CHLORIDE 1,000 ML IV SCH ×2 (00:41→06:07)
[2017-05-24] MEDS: MEROPENEM 1 GM in DEXTROSE 5%-WATER - 100 ML IVPB SCH ×3 (01:15→17:20)
[2017-05-24] MEDS: LEVOTHYROXINE NA 50 MCG TABLET (FP) PO SCH (06:08)
[2017-05-24 07:48] LABS: MCH 33.8 pg (25.7-33.7); MCHC 34.8 g/dl (32.0-35.9); MEAN PLT VOLUME 9.2 fl (7.5-11.1); PLATELET COUNT 147 K/MM3 (134-434); RDW 21.4 % (11.9-15.9); WHITE BLOOD COUNT 10.6 K/mm3 (4.0-10.0)
[2017-05-24] MEDS: AMINO ACIDS/PROTEIN HYDROLYS 30 ML LIQUID.PKT PO SCH ×2 (08:20→17:20)
[2017-05-24 08:57] LABS: ANION GAP 13 (8-16); CALCIUM 8.3 mg/dL (8.5-10.1); CO2 26 mmol/L (21-32); CREATININE 0.6 mg/dL (0.7-1.3); GLUCOSE,RANDOM 79 mg/dL (74-106); MAGNESIUM 1.8 mg/dL (1.8-2.4); PHOSPHOROUS 3.5 mg/dL (2.5-4.9)
[2017-05-24] MEDS ORDERED: PT OWN MED DRAWER 7, Y5N ONE ×2 (09:09→17:17)
[2017-05-24] MEDS: LACTOBACILLUS ACIDOPHILUS 1 EACH TAB (FP) PO SCH (09:14)
[2017-05-24] MEDS: predniSONE 10 MG TABLET (UD) PO SCH (09:15)
[2017-05-24] MEDS: METOPROLOL TARTRATE 25 MG TABLET (FP) PO SCH ×2 (09:15→21:37)
[2017-05-24] MEDS: RANITIDINE HCL 150 MG TABLET (FP) PO SCH ×2 (09:16→21:36)
[2017-05-24] MEDS: CHOLECALCIFEROL (VITAMIN D3) 1,000 UNIT TABLET (FP) PO SCH (09:16)
[2017-05-24] MEDS: SENNOSIDES 8.6MG TABLET (FP) PO SCH (09:16)
[2017-05-24] MEDS: TIOTROPIUM BROMIDE 18 MCG/INH (DEVICE W/ 5 CAPSULES) IH SCH (09:18)
[2017-05-24] MEDS: FLUTICASONE PROP 0.05% 16 GM NASAL SPRAY NS SCH (09:18)
[2017-05-24] MEDS: BRIMONIDINE TARTRATE 0.15% OPHTHALMIC 5 ML BOTTLE OD SCH ×2 (09:19→21:36)
[2017-05-24 09:55] LABS: METAMYELOCYTE 3 % (0-2); MYELOCYTE 3 % (0-2); PLATELET ESTIMATE ADEQUATE (NORMAL); TOTAL CELLS COUNTED 100
--- NOTE | 2017-05-24 11:16 | PN ---
Progress Note (short form) - Note Progress Note: s: no cp palps dizzy, sob better, eating better Current Medications Generic Name Dose Route Start Last Admin Trade Name Freq PRN Reason Stop Dose Admin Acetaminophen 650 mg 05/08/17 18:51 05/19/17 00:53 Tylenol - PO 650 mg Q6H PRN Administration FEVER OR PAIN Al Hydroxide/Mg Hydroxide 30 ml 05/13/17 12:50 05/13/17 13:00 Mylanta Oral Suspension - PO 30 ml Q6H PRN Administration INDIGESTION Albuterol/Ipratropium 1 amp 05/19/17 17:58 05/21/17 10:38 Duoneb - NEB 1 amp Q4H PRN Administration SHORTNESS OF BREATH Amino Acids 30 ml 05/22/17 17:30 05/24/17 08:20 Prosource No Carb Liquid Pkt PO 30 ml BID@0800,1730 [facility] Administration Ascorbic Acid 500 mg 05/08/17 22:00 05/23/17 21:02 Vitamin C - PO 500 mg HS [facility] Administration Atorvastatin Calcium 10 mg 05/08/17 22:00 05/23/17 21:02 Lipitor - PO 10 mg HS [facility] Administration Brimonidine Tartrate 1 drop 05/08/17 22:00 05/24/17 09:19 Alphagan 0.15% - OD 1 drop BID [facility] Administration Cholecalciferol 1,000 unit 05/09/17 10:00 05/24/17 09:16 Vitamin D3 - PO 1,000 unit DAILY [facility] Administration Docusate Sodium 200 mg 05/08/17 22:00 05/23/17 21:02 Colace - PO 200 mg HS [facility] Administration Duloxetine HCl 60 mg 05/08/17 22:00 05/23/17 21:01 Cymbalta - PO 60 mg HS [facility] Administration Fluticasone Propionate 2 spray 05/09/17 10:00 05/24/17 09:18 Flonase - NS 2 sprays DAILY [facility] Administration Gabapentin 600 mg 05/08/17 22:00 05/14/17 10:23 Neurontin - PO 600 mg BID [facility] Administration Sodium Chloride 1,000 mls @ 50 mls/hr 05/15/17 02:00 05/24/17 06:07 Normal Saline - IV Not Given ASDIR [facility] Meropenem 1 gm/ Dextrose 100 mls @ 100 mls/hr 05/15/17 14:00 05/24/17 09:16 IVPB 100 mls/hr Q8H-IV [facility] Administration Protocol Lactobacillus Acidophilus 1 tab 05/10/17 11:00 05/24/17 09:14 Bacid - PO 1 tab DAILY [facility] Administration Levothyroxine Sodium 50 mcg 05/09/17 07:00 05/24/17 06:08 Synthroid - PO 50 mcg DAILY@0700 [facility] Administration Metoprolol Tartrate 12.5 mg 05/14/17 22:00 05/24/17 09:15 Lopressor - PO 12.5 mg BID [facility] Administration Prednisone 30 mg 05/23/17 10:00 05/24/17 09:15 Deltasone - PO 30 mg DAILY [facility] Administration Ranitidine HCl 150 mg 05/08/17 22:00 05/24/17 09:16 Zantac - PO 150 mg BID [facility] Administration Senna 2 tab 05/09/17 10:00 05/24/17 09:16 Senna - PO 2 tab DAILY [facility] Administration Tiotropium [place] 1 puff 05/09/17 13:00 05/24/17 09:18 Spiriva - IH 1 puff DAILY [facility] Administration Vital Signs Period Temp Pulse Resp BP Sys/Mitchell Pulse Ox Last 24 Hr 97.3 F-99.4 F 64-74 18-20 135-148/65-93 95-96 Constitutional: Yes: No Distress, Calm Cardiovascular: Yes: irregular Rate and Rhythm, S1, S2. No: Gallop, Murmur Respiratory: Yes:cta bl nl eff. No: Accessory Muscle Use Extremities: No: Cold Edema: No Neurological: Yes: alert today, conversational. No: Seizure Psychiatric: No: Agitated no jaundice diaphoresis Labs: CBC, BMP 05/24/17 06:30 05/24/17 06:30 echo 05/2017: mild, global LV hypo; nl RV; mild MR; mild ao root dilation (no RVSP) echo 10/2016: low nl lvef, nl lv size, nl rv, mild elena, mild mr/tr, rvsp 40-50 mibi 10/2016: no ischemia head ct 05/14: chronic rt cerebellar infarct, no acute pathology. a/p: 86 Y/O Gentleman with a PMhx that includes CKD, CAD s/p pci to rca 2004 ( patent on cath 2006), PVD s/p le bypass/stents/amputations, HTN, Afib on AC, here with sob, weakness found to have pna. fatigue, sob: -bnp very high, but outpt lasix has not improved his sxs and here with no signs of vol overload so does not seem that chf causing his sxs. lasix held and patient has been on maintenance fluids. -imaging shows pna, mucus plugs, possibly aspirating, cont abx, steroids per ID/ pulm-->symptomatically improving afib: - had been on pradaxa but was switched to lovenox while unable to take po. - 05/21 Now able to take po but with hematuria and hgb/platelets low so lovenox has been stopped for now. following - rate controlled, cont low dose bb cad s/p remote pci: -stable -no signs acs -cont AC, statin. has been off bb/acei due to low bp as outpt, but started BB here for AF chronic diastolic chf: -bnp 23K (baseline 8-10K) -05/13: has been on lasix 40 po daily, wts ranging 151-157 here, suspect JVD on exam though he is asymptomatic. cxr 05/12 with mild incr interstl markings ? mild chf. given lasix 40mg IVP x 1 - 05/14: bp drop after lasix. today bicarb up to 38 and lethargic (baseline unknown to me). Would hold po lasix tomorrow, monitor for when to resume. K 4.5 , mg 2.5. can stop standing repletion. -05/15-: no signs vol overload, cont to hold home lasix - 05/20-: no signs vol overload thus far, cont to hold home lasix htn: -stable hld: -cont home statin, trilipix for now.
--- NOTE | 2017-05-24 11:38 | PN ---
Progress Note, Physician Chief Complaint: Mr Rivas says he is feeling good today. Denies cp, sob, n/v. - Current Medication List Current Medications: Active Medications Acetaminophen (Tylenol -) 650 mg PO Q6H PRN PRN Reason: FEVER OR PAIN Last Admin: 05/19/17 00:53 Dose: 650 mg Al Hydroxide/Mg Hydroxide (Mylanta Oral Suspension -) 30 ml PO Q6H PRN PRN Reason: INDIGESTION Last Admin: 05/13/17 13:00 Dose: 30 ml Albuterol/Ipratropium (Duoneb -) 1 amp NEB Q4H PRN PRN Reason: SHORTNESS OF BREATH Last Admin: 05/21/17 10:38 Dose: 1 amp Amino Acids (Prosource No Carb Liquid Pkt) 30 ml PO BID@0800,1730 [facility] Last Admin: 05/24/17 08:20 Dose: 30 ml Ascorbic Acid (Vitamin C -) 500 mg PO HS [facility] Last Admin: 05/23/17 21:02 Dose: 500 mg Atorvastatin Calcium (Lipitor -) 10 mg PO HS [facility] Last Admin: 05/23/17 21:02 Dose: 10 mg Brimonidine Tartrate (Alphagan 0.15% -) 1 drop OD BID [facility] Last Admin: 05/24/17 09:19 Dose: 1 drop Cholecalciferol (Vitamin D3 -) 1,000 unit PO DAILY [facility] Last Admin: 05/24/17 09:16 Dose: 1,000 unit Docusate Sodium (Colace -) 200 mg PO HS [facility] Last Admin: 05/23/17 21:02 Dose: 200 mg Duloxetine HCl (Cymbalta -) 60 mg PO HS [facility] Last Admin: 05/23/17 21:01 Dose: 60 mg Fluticasone Propionate (Flonase -) 2 spray NS DAILY [facility] Last Admin: 05/24/17 09:18 Dose: 2 sprays Gabapentin (Neurontin -) 600 mg PO BID [facility] Last Admin: 05/14/17 10:23 Dose: 600 mg Sodium Chloride (Normal Saline -) 1,000 mls @ 50 mls/hr IV ASDIR [facility] Last Admin: 05/24/17 06:07 Dose: Not Given Meropenem 1 gm/ Dextrose 100 mls @ 100 mls/hr IVPB Q8H-IV [facility] PRN Reason: Protocol Last Admin: 05/24/17 09:16 Dose: 100 mls/hr Lactobacillus Acidophilus (Bacid -) 1 tab PO DAILY [facility] Last Admin: 05/24/17 09:14 Dose: 1 tab Levothyroxine Sodium (Synthroid -) 50 mcg PO DAILY@0700 [facility] Last Admin: 05/24/17 06:08 Dose: 50 mcg Metoprolol Tartrate (Lopressor -) 12.5 mg PO BID [facility] Last Admin: 05/24/17 09:15 Dose: 12.5 mg Prednisone (Deltasone -) 30 mg PO DAILY [facility] Last Admin: 05/24/17 09:15 Dose: 30 mg Ranitidine HCl (Zantac -) 150 mg PO BID [facility] Last Admin: 05/24/17 09:16 Dose: 150 mg Senna (Senna -) 2 tab PO DAILY [facility] Last Admin: 05/24/17 09:16 Dose: 2 tab Tiotropium [place] (Spiriva -) 1 puff IH DAILY [facility] Last Admin: 05/24/17 09:18 Dose: 1 puff - Objective Vital Signs: Vital Signs Temperature 36.3 C L 05/24/17 08:00 Pulse Rate 70 05/24/17 10:02 Respiratory Rate 18 05/24/17 08:00 Blood Pressure 148/93 05/24/17 08:00 O2 Sat by Pulse Oximetry (%) 95 05/24/17 10:02 Constitutional: Yes: Well Nourished, No Distress, Calm Cardiovascular: Yes: Regular Rate and Rhythm. No: Gallop, Murmur, Rub Respiratory: Yes: Regular, CTA Bilaterally. No: Rales, Rhonchi, Wheezes Gastrointestinal: Yes: Normal Bowel Sounds, Soft. No: Distention, Tenderness Genitourinary: Yes: Hematuria Extremities: Yes: WNL Edema: No Labs: CBC, BMP 05/24/17 06:30 05/24/17 06:30 Problem List - Problems (1) Pneumonia Code(s): J18.9 - PNEUMONIA, UNSPECIFIED ORGANISM Qualifiers: Laterality: right Lung location: lower lobe of lung (2) Alkalosis, metabolic Code(s): E87.3 - ALKALOSIS (3) Atrial fibrillation Code(s): I48.91 - UNSPECIFIED ATRIAL FIBRILLATION Qualifiers: Atrial fibrillation type: chronic Qualified Code(s): I48.2 - Chronic atrial fibrillation (4) CHF (congestive heart failure) Code(s): I50.9 - HEART FAILURE, UNSPECIFIED Qualifiers: Congestive heart failure type: unspecified congestive heart failure type Congestive heart failure chronicity: chronic Qualified Code(s): I50.9 - Heart failure, unspecified (5) GERD (gastroesophageal reflux disease) Code(s): K21.9 - GASTRO-ESOPHAGEAL REFLUX DISEASE WITHOUT ESOPHAGITIS (6) HTN (hypertension) Code(s): I10 - ESSENTIAL (PRIMARY) HYPERTENSION (7) Hyperlipemia Code(s): E78.5 - HYPERLIPIDEMIA, UNSPECIFIED (8) Hypothyroidism Code(s): E03.9 - HYPOTHYROIDISM, UNSPECIFIED (9) PVD (peripheral vascular disease) Code(s): I73.9 - PERIPHERAL VASCULAR DISEASE, UNSPECIFIED (10) Acute respiratory failure Code(s): J96.00 - ACUTE RESPIRATORY FAILURE, UNSP W HYPOXIA OR HYPERCAPNIA Qualifiers: Respiratory failure complication: hypoxia and hypercapnia Qualified Code(s): J96.01 - Acute respiratory failure with hypoxia (11) Acute respiratory acidosis Code(s): E87.2 - ACIDOSIS (12) Hematuria Code(s): R31.9 - HEMATURIA, UNSPECIFIED Assessment/Plan (1) Community acquired pneumonia Assessment/Plan: -patient with post obstructive pneumonia, s/p expactoration of mucus plug -ID following -continue merrem per ID -antibiotic course per ID (2) Respiratory acidosis Assessment/Plan: -resolved -no longer needing bipap -pulmonary following Code(s): (3) Atrial fibrillation Assessment/Plan: -rate controlled -continue metoprolol -d/c anticoagulants secondary to hematuria requiring transfusion Code(s): I48.91 - UNSPECIFIED ATRIAL FIBRILLATION Qualifiers: Atrial fibrillation type: chronic Qualified Code(s): I48.2 - Chronic atrial fibrillation (4) CHF (congestive heart failure) Assessment/Plan: -ECHO reviewed and cardiology following -not in exacerbation Code(s): I50.9 - HEART FAILURE, UNSPECIFIED Qualifiers: Congestive heart failure type: unspecified congestive heart failure type Congestive heart failure chronicity: chronic Qualified Code(s): I50.9 - Heart failure, unspecified (5) GERD (gastroesophageal reflux disease) Assessment/Plan: -continue zantac Code(s): K21.9 - GASTRO-ESOPHAGEAL REFLUX DISEASE WITHOUT ESOPHAGITIS (6) HTN (hypertension) Assessment/Plan: -controlled Code(s): I10 - ESSENTIAL (PRIMARY) HYPERTENSION (7) Hyperlipemia Assessment/Plan: -continue lipitor -hold fenofibrate secondary to inability to crush Code(s): E78.5 - HYPERLIPIDEMIA, UNSPECIFIED (8) Hypothyroidism Assessment/Plan: -continue synthroid Code(s): E03.9 - HYPOTHYROIDISM, UNSPECIFIED (9) PVD (peripheral vascular disease) Assessment/Plan: -holding lovenox -does not complain of claudication Code(s): I73.9 - PERIPHERAL VASCULAR DISEASE, UNSPECIFIED (10) Urinary retention -urology note reviewed -however still with significant hematuria -will hold lovenox as above (11) Metabolic encephalopathy -resolved (12) Acute respiratory failure -resolved -pulmonary following (13) Uremia -improving (14) Anemia -transfused with good response -monitor (15) Thrombocytopenia -resolved -secondary to sepsis -HIT antibodies negative (16) Hematuria -urology consulted and following
--- NOTE | 2017-05-24 12:02 | PN ---
Progress Note (short form) - Note Progress Note: PULMONARY AWAKE/ALERT/SUBJECTIVE IMPROVEMENT VSS/ANICTERIC/PALE DIMINISHED BREATH SOUNDS S1S2 IRREGULAR BS+ NO EDEMA LABS/MEDS/NOTES/IMAGING REVIEWED A/P Pneumonia Atrial Fibrillation LV Diastolic Dysfunction CAD HTN Hyperlipidemia - complete antibiotics per ID - continue hold lasix as pt appears dry - steroids are PO - inhaled bronchodilators - rate controlled Coleen STOKES MD
--- NOTE | 2017-05-24 13:21 | PN ---
Progress Note, Physician History of Present Illness: patient stable says he is doing better - Current Medication List Current Medications: Active Medications Acetaminophen (Tylenol -) 650 mg PO Q6H PRN PRN Reason: FEVER OR PAIN Last Admin: 05/19/17 00:53 Dose: 650 mg Al Hydroxide/Mg Hydroxide (Mylanta Oral Suspension -) 30 ml PO Q6H PRN PRN Reason: INDIGESTION Last Admin: 05/13/17 13:00 Dose: 30 ml Albuterol/Ipratropium (Duoneb -) 1 amp NEB Q4H PRN PRN Reason: SHORTNESS OF BREATH Last Admin: 05/21/17 10:38 Dose: 1 amp Amino Acids (Prosource No Carb Liquid Pkt) 30 ml PO BID@0800,1730 [facility] Last Admin: 05/24/17 08:20 Dose: 30 ml Ascorbic Acid (Vitamin C -) 500 mg PO HS [facility] Last Admin: 05/23/17 21:02 Dose: 500 mg Atorvastatin Calcium (Lipitor -) 10 mg PO HS [facility] Last Admin: 05/23/17 21:02 Dose: 10 mg Brimonidine Tartrate (Alphagan 0.15% -) 1 drop OD BID [facility] Last Admin: 05/24/17 09:19 Dose: 1 drop Cholecalciferol (Vitamin D3 -) 1,000 unit PO DAILY [facility] Last Admin: 05/24/17 09:16 Dose: 1,000 unit Docusate Sodium (Colace -) 200 mg PO HS [facility] Last Admin: 05/23/17 21:02 Dose: 200 mg Duloxetine HCl (Cymbalta -) 60 mg PO HS [facility] Last Admin: 05/23/17 21:01 Dose: 60 mg Fluticasone Propionate (Flonase -) 2 spray NS DAILY [facility] Last Admin: 05/24/17 09:18 Dose: 2 sprays Gabapentin (Neurontin -) 600 mg PO BID [facility] Last Admin: 05/14/17 10:23 Dose: 600 mg Sodium Chloride (Normal Saline -) 1,000 mls @ 50 mls/hr IV ASDIR [facility] Last Admin: 05/24/17 06:07 Dose: Not Given Meropenem 1 gm/ Dextrose 100 mls @ 100 mls/hr IVPB Q8H-IV MICHAEL PRN Reason: Protocol Last Admin: 05/24/17 09:16 Dose: 100 mls/hr Lactobacillus Acidophilus (Bacid -) 1 tab PO DAILY [facility] Last Admin: 05/24/17 09:14 Dose: 1 tab Levothyroxine Sodium (Synthroid -) 50 mcg PO DAILY@0700 [facility] Last Admin: 05/24/17 06:08 Dose: 50 mcg Metoprolol Tartrate (Lopressor -) 12.5 mg PO BID [facility] Last Admin: 05/24/17 09:15 Dose: 12.5 mg Prednisone (Deltasone -) 30 mg PO DAILY [facility] Last Admin: 05/24/17 09:15 Dose: 30 mg Ranitidine HCl (Zantac -) 150 mg PO BID [facility] Last Admin: 05/24/17 09:16 Dose: 150 mg Senna (Senna -) 2 tab PO DAILY [facility] Last Admin: 05/24/17 09:16 Dose: 2 tab Tiotropium [place] (Spiriva -) 1 puff IH DAILY [facility] Last Admin: 05/24/17 09:18 Dose: 1 puff - Objective Vital Signs: Vital Signs Temperature 97.3 F L 05/24/17 08:00 Pulse Rate 70 05/24/17 10:02 Respiratory Rate 18 05/24/17 08:00 Blood Pressure 148/93 05/24/17 08:00 O2 Sat by Pulse Oximetry (%) 95 05/24/17 10:02 Constitutional: Yes: No Distress, Calm Cardiovascular: Yes: Regular Rate and Rhythm Respiratory: Yes: Regular, On Nasal O2, Rhonchi Gastrointestinal: Yes: Normal Bowel Sounds, Soft Musculoskeletal: Yes: WNL Extremities: Yes: WNL Neurological: Yes: Alert, Oriented Psychiatric: Yes: Alert, Oriented Labs: CBC, BMP 05/24/17 06:30 05/24/17 06:30 Assessment/Plan Problem List - Problems (1) Pneumonia Code(s): J18.9 - PNEUMONIA, UNSPECIFIED ORGANISM Qualifiers: Laterality: right Lung location: lower lobe of lung (2) Alkalosis, metabolic Code(s): E87.3 - ALKALOSIS (3) Atrial fibrillation Code(s): I48.91 - UNSPECIFIED ATRIAL FIBRILLATION Qualifiers: Atrial fibrillation type: chronic Qualified Code(s): I48.2 - Chronic atrial fibrillation (4) CHF (congestive heart failure) Code(s): I50.9 - HEART FAILURE, UNSPECIFIED Qualifiers: Congestive heart failure type: unspecified congestive heart failure type Congestive heart failure chronicity: chronic Qualified Code(s): I50.9 - Heart failure, unspecified (5) GERD (gastroesophageal reflux disease) Code(s): K21.9 - GASTRO-ESOPHAGEAL REFLUX DISEASE WITHOUT ESOPHAGITIS (6) HTN (hypertension) Code(s): I10 - ESSENTIAL (PRIMARY) HYPERTENSION (7) Hyperlipemia Code(s): E78.5 - HYPERLIPIDEMIA, UNSPECIFIED (8) Hypothyroidism Code(s): E03.9 - HYPOTHYROIDISM, UNSPECIFIED (9) PVD (peripheral vascular disease) Code(s): I73.9 - PERIPHERAL VASCULAR DISEASE, UNSPECIFIED Assessment/Plan (1) Community acquired pneumonia (2) Alkalosis, metabolic Code(s): E87.3 - ALKALOSIS (3) Atrial fibrillation Code(s): I48.91 - UNSPECIFIED ATRIAL FIBRILLATION Qualifiers: Atrial fibrillation type: chronic Qualified Code(s): I48.2 - Chronic atrial fibrillation (4) CHF (congestive heart failure) Code(s): I50.9 - HEART FAILURE, UNSPECIFIED Qualifiers: Congestive heart failure type: unspecified congestive heart failure type Congestive heart failure chronicity: chronic Qualified Code(s): I50.9 - Heart failure, unspecified (5) GERD (gastroesophageal reflux disease) Code(s): K21.9 - GASTRO-ESOPHAGEAL REFLUX DISEASE WITHOUT ESOPHAGITIS (6) HTN (hypertension) Code(s): I10 - ESSENTIAL (PRIMARY) HYPERTENSION (7) Hyperlipemia Code(s): E78.5 - HYPERLIPIDEMIA, UNSPECIFIED (8) Hypothyroidism Code(s): E03.9 - HYPOTHYROIDISM, UNSPECIFIED (9) PVD (peripheral vascular disease) Code(s): I73.9 - PERIPHERAL VASCULAR DISEASE, UNSPECIFIED altered mental status which has improved plan continue abx continue current mgmt rest as per primary incentive kimberly wbc slightly high will stop abx tomorrow please be careful i see food on his table brought by his
[2017-05-24] MEDS: DOCUSATE SODIUM 100 MG CAPSULE (FP) PO SCH (21:34)
[2017-05-24] MEDS: ASCORBIC ACID 500 MG TABLET (FP) PO SCH (21:35)
[2017-05-24] MEDS: ATORVASTATIN CA 10 MG TABLET (FP) PO SCH (21:37)
[2017-05-24] MEDS: DULoxetine HCL 30 MG CAPSULE.DR (FP) PO SCH (21:39)
[2017-05-25] MEDS: MEROPENEM 1 GM in DEXTROSE 5%-WATER - 100 ML IVPB SCH ×3 (01:26→17:24)
[2017-05-25] MEDS: SODIUM CHLORIDE 1,000 ML IV SCH (05:28)
[2017-05-25] MEDS: LEVOTHYROXINE NA 50 MCG TABLET (FP) PO SCH (06:29)
[2017-05-25] MEDS: AMINO ACIDS/PROTEIN HYDROLYS 30 ML LIQUID.PKT PO SCH ×2 (08:16→17:25)
[2017-05-25 08:20] LABS: MCH 33.4 pg (25.7-33.7); MEAN CELL VOLUME 98.2 fl (80-96); MEAN PLT VOLUME 9.2 fl (7.5-11.1); PLATELET COUNT 160 K/MM3 (134-434); RDW 20.2 % (11.9-15.9); WHITE BLOOD COUNT 13.1 K/mm3 (4.0-10.0)
[2017-05-25 08:49] LABS: ANION GAP 4 (8-16); CALCIUM 8.2 mg/dL (8.5-10.1); CO2 33 mmol/L (21-32); CREATININE 0.6 mg/dL (0.7-1.3); GLUCOSE,RANDOM 70 mg/dL (74-106); MAGNESIUM 1.9 mg/dL (1.8-2.4); PHOSPHOROUS 2.6 mg/dL (2.5-4.9)
[2017-05-25] MEDS ORDERED: PT OWN MED DRAWER 7, Y5N ONE ×2 (09:30→17:22)
[2017-05-25] MEDS: SENNOSIDES 8.6MG TABLET (FP) PO SCH (09:32)
[2017-05-25] MEDS: METOPROLOL TARTRATE 25 MG TABLET (FP) PO SCH ×2 (09:32→21:57)
[2017-05-25] MEDS: CHOLECALCIFEROL (VITAMIN D3) 1,000 UNIT TABLET (FP) PO SCH (09:32)
[2017-05-25] MEDS: GABAPENTIN 300 MG CAPSULE (FP) PO SCH ×2 (09:33→21:58)
[2017-05-25] MEDS: BRIMONIDINE TARTRATE 0.15% OPHTHALMIC 5 ML BOTTLE OD SCH ×2 (09:33→22:25)
[2017-05-25] MEDS: predniSONE 10 MG TABLET (UD) PO SCH (09:33)
[2017-05-25] MEDS: LACTOBACILLUS ACIDOPHILUS 1 EACH TAB (FP) PO SCH (09:33)
[2017-05-25] MEDS: RANITIDINE HCL 150 MG TABLET (FP) PO SCH ×2 (09:34→21:57)
[2017-05-25] MEDS: TIOTROPIUM BROMIDE 18 MCG/INH (DEVICE W/ 5 CAPSULES) IH SCH (09:34)
[2017-05-25] MEDS: FLUTICASONE PROP 0.05% 16 GM NASAL SPRAY NS SCH (09:34)
--- NOTE | 2017-05-25 10:37 | PN ---
Progress Note, Physician History of Present Illness: Breathing feeling about the same today, "no better, no worse". Patient wondering if he will get cystoscopy while he is here, but urologist just advised to call back if hematuria increases again (seems to be clearing). - Current Medication List Current Medications: Active Medications Acetaminophen (Tylenol -) 650 mg PO Q6H PRN PRN Reason: FEVER OR PAIN Last Admin: 05/19/17 00:53 Dose: 650 mg Al Hydroxide/Mg Hydroxide (Mylanta Oral Suspension -) 30 ml PO Q6H PRN PRN Reason: INDIGESTION Last Admin: 05/13/17 13:00 Dose: 30 ml Albuterol/Ipratropium (Duoneb -) 1 amp NEB Q4H PRN PRN Reason: SHORTNESS OF BREATH Last Admin: 05/21/17 10:38 Dose: 1 amp Amino Acids (Prosource No Carb Liquid Pkt) 30 ml PO BID@0800,1730 [facility] Last Admin: 05/25/17 08:16 Dose: 30 ml Ascorbic Acid (Vitamin C -) 500 mg PO HS [facility] Last Admin: 05/24/17 21:35 Dose: 500 mg Atorvastatin Calcium (Lipitor -) 10 mg PO HS [facility] Last Admin: 05/24/17 21:37 Dose: 10 mg Brimonidine Tartrate (Alphagan 0.15% -) 1 drop OD BID [facility] Last Admin: 05/25/17 09:33 Dose: 1 drop Cholecalciferol (Vitamin D3 -) 1,000 unit PO DAILY [facility] Last Admin: 05/25/17 09:32 Dose: 1,000 unit Docusate Sodium (Colace -) 200 mg PO HS [facility] Last Admin: 05/24/17 21:34 Dose: 200 mg Duloxetine HCl (Cymbalta -) 60 mg PO HS [facility] Last Admin: 05/24/17 21:39 Dose: 60 mg Fluticasone Propionate (Flonase -) 2 spray NS DAILY [facility] Last Admin: 05/25/17 09:34 Dose: 2 sprays Gabapentin (Neurontin -) 600 mg PO BID [facility] Last Admin: 05/25/17 09:33 Dose: 600 mg Sodium Chloride (Normal Saline -) 1,000 mls @ 50 mls/hr IV ASDIR [facility] Last Admin: 05/25/17 05:28 Dose: 50 mls/hr Meropenem 1 gm/ Dextrose 100 mls @ 100 mls/hr IVPB Q8H-IV MICHAEL PRN Reason: Protocol Last Admin: 05/25/17 09:32 Dose: 100 mls/hr Lactobacillus Acidophilus (Bacid -) 1 tab PO DAILY [facility] Last Admin: 05/25/17 09:33 Dose: 1 tab Levothyroxine Sodium (Synthroid -) 50 mcg PO DAILY@0700 [facility] Last Admin: 05/25/17 06:29 Dose: 50 mcg Metoprolol Tartrate (Lopressor -) 25 mg PO BID [facility] Last Admin: 05/25/17 09:32 Dose: 25 mg Prednisone (Deltasone -) 30 mg PO DAILY [facility] Last Admin: 05/25/17 09:33 Dose: 30 mg Ranitidine HCl (Zantac -) 150 mg PO BID [facility] Last Admin: 05/25/17 09:34 Dose: 150 mg Senna (Senna -) 2 tab PO DAILY [facility] Last Admin: 05/25/17 09:32 Dose: 2 tab Tiotropium [place] (Spiriva -) 1 puff IH DAILY [facility] Last Admin: 05/25/17 09:34 Dose: 1 puff - Objective Vital Signs: Vital Signs Temperature 97 F L 05/25/17 05:30 Pulse Rate 65 05/25/17 05:30 Respiratory Rate 20 05/25/17 05:30 Blood Pressure 151/76 05/25/17 05:30 O2 Sat by Pulse Oximetry (%) 98 05/24/17 21:00 Constitutional: Yes: No Distress, Calm Neck: Yes: Supple, Trachea Midline Cardiovascular: Yes: Regular Rate and Rhythm, S1, S2. No: Murmur Respiratory: Yes: Regular, Diminished Gastrointestinal: Yes: Normal Bowel Sounds, Soft. No: Distention, Tenderness Genitourinary: Yes: Simmons Present (gold/ orange colored urine) Edema: No Labs: CBC, BMP 05/25/17 06:35 05/25/17 06:35 Assessment/Plan Current Active Problems Acute respiratory acidosis (Acute) Acute respiratory failure (Acute) CAD (coronary artery disease) (Acute) Dysphagia causing pulmonary aspiration with swallowing (Acute) Hematuria (Acute) Shortness of breath (Acute) -cont breathing treatments, now on prednisone, observe hematuria for now
--- NOTE | 2017-05-25 10:41 | PN ---
Progress Note (short form) - Note Progress Note: s: no cp palps dizzy, sob better, eating better Current Medications Generic Name Dose Route Start Last Admin Trade Name Freq PRN Reason Stop Dose Admin Acetaminophen 650 mg 05/08/17 18:51 05/19/17 00:53 Tylenol - PO 650 mg Q6H PRN Administration FEVER OR PAIN Al Hydroxide/Mg Hydroxide 30 ml 05/13/17 12:50 05/13/17 13:00 Mylanta Oral Suspension - PO 30 ml Q6H PRN Administration INDIGESTION Albuterol/Ipratropium 1 amp 05/19/17 17:58 05/21/17 10:38 Duoneb - NEB 1 amp Q4H PRN Administration SHORTNESS OF BREATH Amino Acids 30 ml 05/22/17 17:30 05/25/17 08:16 Prosource No Carb Liquid Pkt PO 30 ml BID@0800,1730 [facility]HAEL Administration Ascorbic Acid 500 mg 05/08/17 22:00 05/24/17 21:35 Vitamin C - PO 500 mg HS MIC[facility]EL Administration Atorvastatin Calcium 10 mg 05/08/17 22:00 05/24/17 21:37 Lipitor - PO 10 mg HS [facility]EL Administration Brimonidine Tartrate 1 drop 05/08/17 22:00 05/25/17 09:33 Alphagan 0.15% - OD 1 drop BID [facility]EL Administration Cholecalciferol 1,000 unit 05/09/17 10:00 05/25/17 09:32 Vitamin D3 - PO 1,000 unit DAILY [facility]EL Administration Docusate Sodium 200 mg 05/08/17 22:00 05/24/17 21:34 Colace - PO 200 mg HS MICHAEL Administration Duloxetine HCl 60 mg 05/08/17 22:00 05/24/17 21:39 Cymbalta - PO 60 mg HS [facility]EL Administration Fluticasone Propionate 2 spray 05/09/17 10:00 05/25/17 09:34 Flonase - NS 2 sprays DAILY [facility]EL Administration Gabapentin 600 mg 05/08/17 22:00 05/25/17 09:33 Neurontin - PO 600 mg BID [facility]EL Administration Sodium Chloride 1,000 mls @ 50 mls/hr 05/15/17 02:00 05/25/17 05:28 Normal Saline - IV 50 mls/hr ASDIR MICHAEL Administration Meropenem 1 gm/ Dextrose 100 mls @ 100 mls/hr 05/15/17 14:00 05/25/17 09:32 IVPB 100 mls/hr Q8H-IV MICHAEL Administration Protocol Lactobacillus Acidophilus 1 tab 05/10/17 11:00 05/25/17 09:33 Bacid - PO 1 tab DAILY [facility] Administration Levothyroxine Sodium 50 mcg 05/09/17 07:00 05/25/17 06:29 Synthroid - PO 50 mcg DAILY@0700 [facility] Administration Metoprolol Tartrate 25 mg 05/25/17 08:38 05/25/17 09:32 Lopressor - PO 25 mg BID [facility] Administration Prednisone 30 mg 05/23/17 10:00 05/25/17 09:33 Deltasone - PO 30 mg DAILY [facility] Administration Ranitidine HCl 150 mg 05/08/17 22:00 05/25/17 09:34 Zantac - PO 150 mg BID [facility] Administration Senna 2 tab 05/09/17 10:00 05/25/17 09:32 Senna - PO 2 tab DAILY [facility] Administration Tiotropium [place] 1 puff 05/09/17 13:00 05/25/17 09:34 Spiriva - IH 1 puff DAILY [facility]EL Administration Vital Signs Period Temp Pulse Resp BP Sys/Mitchell Pulse Ox Last 24 Hr 97 F-97.9 F 65-79 18-20 145-157/67-100 98-98 Constitutional: Yes: No Distress, Calm Cardiovascular: Yes: irregular Rate and Rhythm, S1, S2. No: Gallop, Murmur Respiratory: Yes:cta bl nl eff. No: Accessory Muscle Use Extremities: No: Cold Edema: No Neurological: Yes: alert today, conversational. No: Seizure Psychiatric: No: Agitated no jaundice diaphoresis Labs: CBC, BMP 05/25/17 06:35 05/25/17 06:35 echo 05/2017: mild, global LV hypo; nl RV; mild MR; mild ao root dilation (no RVSP) echo 10/2016: low nl lvef, nl lv size, nl rv, mild elena, mild mr/tr, rvsp 40-50 mibi 10/2016: no ischemia head ct 05/14: chronic rt cerebellar infarct, no acute pathology. a/p: 86 Y/O Gentleman with a PMhx that includes CKD, CAD s/p pci to rca 2004 ( patent on cath 2006), PVD s/p le bypass/stents/amputations, HTN, Afib on AC, here with sob, weakness found to have pna. fatigue, sob: -bnp high, but outpt lasix has not improved his sxs and here with no signs of vol overload so does not seem that chf causing his sxs. lasix held and patient has been on maintenance fluids. -imaging shows pna, mucus plugs, possibly aspirating, cont abx, steroids per ID/ pulm-->symptomatically improving afib: - had been on pradaxa but was switched to lovenox while unable to take po. - 05/21 Now able to take po but with hematuria and hgb/platelets low so lovenox has been stopped for now. following - rate controlled, cont low dose bb cad s/p remote pci: -stable -no signs acs -cont AC, statin. has been off bb/acei due to low bp as outpt, but started BB here for AF chronic diastolic chf: -bnp 23K (baseline 8-10K) -05/13: has been on lasix 40 po daily, wts ranging 151-157 here, suspect JVD on exam though he is asymptomatic. cxr 05/12 with mild incr interstl markings ? mild chf. given lasix 40mg IVP x 1 - 05/14: bp drop after lasix. today bicarb up to 38 and lethargic (baseline unknown to me). Would hold po lasix tomorrow, monitor for when to resume. K 4.5 , mg 2.5. can stop standing repletion. -05/15-: no signs vol overload, cont to hold home lasix - 05/20-: no signs vol overload thus far, cont to hold home lasix htn: -bp elevated, will increase bb to 25 bid hld: -cont home statin, trilipix for now.
--- NOTE | 2017-05-25 11:00 | PN ---
Progress Note (short form) - Note Progress Note: PULMONARY Feels well, denies shortness of breath, cough or wheezing. Last Vital Signs Temp Pulse Resp BP Pulse Ox 97 F L 65 20 151/76 98 05/25/17 05:30 05/25/17 05:30 05/25/17 05:30 05/25/17 05:30 05/24/17 21:00 Gen: NAD at rest Heart: RRR Lung: decreased breath sounds at the bases Abd: soft, nontender Ext: no edema CBC, BMP 05/25/17 06:35 05/25/17 06:35 Active Medications Acetaminophen (Tylenol -) 650 mg PO Q6H PRN PRN Reason: FEVER OR PAIN Last Admin: 05/19/17 00:53 Dose: 650 mg Al Hydroxide/Mg Hydroxide (Mylanta Oral Suspension -) 30 ml PO Q6H PRN PRN Reason: INDIGESTION Last Admin: 05/13/17 13:00 Dose: 30 ml Albuterol/Ipratropium (Duoneb -) 1 amp NEB Q4H PRN PRN Reason: SHORTNESS OF BREATH Last Admin: 05/21/17 10:38 Dose: 1 amp Amino Acids (Prosource No Carb Liquid Pkt) 30 ml PO BID@0800,1730 [facility] Last Admin: 05/25/17 08:16 Dose: 30 ml Ascorbic Acid (Vitamin C -) 500 mg PO HS [facility] Last Admin: 05/24/17 21:35 Dose: 500 mg Atorvastatin Calcium (Lipitor -) 10 mg PO HS [facility] Last Admin: 05/24/17 21:37 Dose: 10 mg Brimonidine Tartrate (Alphagan 0.15% -) 1 drop OD BID [facility] Last Admin: 05/25/17 09:33 Dose: 1 drop Cholecalciferol (Vitamin D3 -) 1,000 unit PO DAILY [facility] Last Admin: 05/25/17 09:32 Dose: 1,000 unit Docusate Sodium (Colace -) 200 mg PO HS [facility] Last Admin: 05/24/17 21:34 Dose: 200 mg Duloxetine HCl (Cymbalta -) 60 mg PO HS [facility] Last Admin: 05/24/17 21:39 Dose: 60 mg Fluticasone Propionate (Flonase -) 2 spray NS DAILY [facility] Last Admin: 09/23/17 09:34 Dose: 2 sprays Gabapentin (Neurontin -) 600 mg PO BID [facility] Last Admin: 05/25/17 09:33 Dose: 600 mg Sodium Chloride (Normal Saline -) 1,000 mls @ 50 mls/hr IV ASDIR [facility] Last Admin: 05/25/17 05:28 Dose: 50 mls/hr Meropenem 1 gm/ Dextrose 100 mls @ 100 mls/hr IVPB Q8H-IV MICHAEL PRN Reason: Protocol Last Admin: 05/25/17 09:32 Dose: 100 mls/hr Lactobacillus Acidophilus (Bacid -) 1 tab PO DAILY [facility] Last Admin: 05/25/17 09:33 Dose: 1 tab Levothyroxine Sodium (Synthroid -) 50 mcg PO DAILY@0700 [facility] Last Admin: 05/25/17 06:29 Dose: 50 mcg Metoprolol Tartrate (Lopressor -) 25 mg PO BID [facility] Last Admin: 05/25/17 09:32 Dose: 25 mg Prednisone (Deltasone -) 30 mg PO DAILY [facility] Last Admin: 05/25/17 09:33 Dose: 30 mg Ranitidine HCl (Zantac -) 150 mg PO BID [facility] Last Admin: 05/25/17 09:34 Dose: 150 mg Senna (Senna -) 2 tab PO DAILY [facility] Last Admin: 05/25/17 09:32 Dose: 2 tab Tiotropium [place] (Spiriva -) 1 puff IH DAILY [facility] Last Admin: 05/25/17 09:34 Dose: 1 puff A/P Pneumonia Atrial Fibrillation LV Diastolic Dysfunction CAD HTN Hyperlipidemia - complete antibiotics per ID - continue hold lasix as pt appears dry - prednisone taper - inhaled bronchodilators - rate controlled - continue anticoagulation
[2017-05-25 11:06] LABS: TOTAL CELLS COUNTED 100
--- NOTE | 2017-05-25 12:10 | PN ---
Progress Note, Physician History of Present Illness: patient stable doing better - Current Medication List Current Medications: Active Medications Acetaminophen (Tylenol -) 650 mg PO Q6H PRN PRN Reason: FEVER OR PAIN Last Admin: 05/19/17 00:53 Dose: 650 mg Al Hydroxide/Mg Hydroxide (Mylanta Oral Suspension -) 30 ml PO Q6H PRN PRN Reason: INDIGESTION Last Admin: 05/13/17 13:00 Dose: 30 ml Albuterol/Ipratropium (Duoneb -) 1 amp NEB Q4H PRN PRN Reason: SHORTNESS OF BREATH Last Admin: 05/21/17 10:38 Dose: 1 amp Amino Acids (Prosource No Carb Liquid Pkt) 30 ml PO BID@0800,1730 [facility] Last Admin: 05/25/17 08:16 Dose: 30 ml Ascorbic Acid (Vitamin C -) 500 mg PO HS [facility] Last Admin: 05/24/17 21:35 Dose: 500 mg Atorvastatin Calcium (Lipitor -) 10 mg PO HS [facility] Last Admin: 05/24/17 21:37 Dose: 10 mg Brimonidine Tartrate (Alphagan 0.15% -) 1 drop OD BID [facility] Last Admin: 05/25/17 09:33 Dose: 1 drop Cholecalciferol (Vitamin D3 -) 1,000 unit PO DAILY [facility] Last Admin: 05/25/17 09:32 Dose: 1,000 unit Docusate Sodium (Colace -) 200 mg PO HS [facility] Last Admin: 05/24/17 21:34 Dose: 200 mg Duloxetine HCl (Cymbalta -) 60 mg PO HS [facility] Last Admin: 05/24/17 21:39 Dose: 60 mg Fluticasone Propionate (Flonase -) 2 spray NS DAILY [facility] Last Admin: 05/25/17 09:34 Dose: 2 sprays Gabapentin (Neurontin -) 600 mg PO BID [facility] Last Admin: 05/25/17 09:33 Dose: 600 mg Sodium Chloride (Normal Saline -) 1,000 mls @ 50 mls/hr IV ASDIR MICHAEL Last Admin: 05/25/17 05:28 Dose: 50 mls/hr Meropenem 1 gm/ Dextrose 100 mls @ 100 mls/hr IVPB Q8H-IV MICHAEL PRN Reason: Protocol Last Admin: 05/25/17 09:32 Dose: 100 mls/hr Lactobacillus Acidophilus (Bacid -) 1 tab PO DAILY [facility] Last Admin: 05/25/17 09:33 Dose: 1 tab Levothyroxine Sodium (Synthroid -) 50 mcg PO DAILY@0700 [facility] Last Admin: 05/25/17 06:29 Dose: 50 mcg Metoprolol Tartrate (Lopressor -) 25 mg PO BID [facility] Last Admin: 05/25/17 09:32 Dose: 25 mg Prednisone (Deltasone -) 30 mg PO DAILY [facility] Last Admin: 05/25/17 09:33 Dose: 30 mg Ranitidine HCl (Zantac -) 150 mg PO BID [facility] Last Admin: 05/25/17 09:34 Dose: 150 mg Senna (Senna -) 2 tab PO DAILY [facility] Last Admin: 05/25/17 09:32 Dose: 2 tab Tiotropium [place] (Spiriva -) 1 puff IH DAILY [facility] Last Admin: 05/25/17 09:34 Dose: 1 puff - Objective Vital Signs: Vital Signs Temperature 97 F L 05/25/17 05:30 Pulse Rate 56 L 05/25/17 11:22 Respiratory Rate 20 05/25/17 05:30 Blood Pressure 151/76 05/25/17 05:30 O2 Sat by Pulse Oximetry (%) 93 L 05/25/17 11:22 Constitutional: Yes: No Distress, Calm Cardiovascular: Yes: Regular Rate and Rhythm Respiratory: Yes: Regular, Rhonchi Gastrointestinal: Yes: Normal Bowel Sounds, Soft Musculoskeletal: Yes: WNL Extremities: Yes: WNL Neurological: Yes: Alert, Oriented Psychiatric: Yes: Alert, Oriented Labs: CBC, BMP 05/25/17 06:35 05/25/17 06:35 Assessment/Plan Problem List - Problems (1) Pneumonia Code(s): J18.9 - PNEUMONIA, UNSPECIFIED ORGANISM Qualifiers: Laterality: right Lung location: lower lobe of lung (2) Alkalosis, metabolic Code(s): E87.3 - ALKALOSIS (3) Atrial fibrillation Code(s): I48.91 - UNSPECIFIED ATRIAL FIBRILLATION Qualifiers: Atrial fibrillation type: chronic Qualified Code(s): I48.2 - Chronic atrial fibrillation (4) CHF (congestive heart failure) Code(s): I50.9 - HEART FAILURE, UNSPECIFIED Qualifiers: Congestive heart failure type: unspecified congestive heart failure type Congestive heart failure chronicity: chronic Qualified Code(s): I50.9 - Heart failure, unspecified (5) GERD (gastroesophageal reflux disease) Code(s): K21.9 - GASTRO-ESOPHAGEAL REFLUX DISEASE WITHOUT ESOPHAGITIS (6) HTN (hypertension) Code(s): I10 - ESSENTIAL (PRIMARY) HYPERTENSION (7) Hyperlipemia Code(s): E78.5 - HYPERLIPIDEMIA, UNSPECIFIED (8) Hypothyroidism Code(s): E03.9 - HYPOTHYROIDISM, UNSPECIFIED (9) PVD (peripheral vascular disease) Code(s): I73.9 - PERIPHERAL VASCULAR DISEASE, UNSPECIFIED Assessment/Plan (1) Community acquired pneumonia (2) Alkalosis, metabolic Code(s): E87.3 - ALKALOSIS (3) Atrial fibrillation Code(s): I48.91 - UNSPECIFIED ATRIAL FIBRILLATION Qualifiers: Atrial fibrillation type: chronic Qualified Code(s): I48.2 - Chronic atrial fibrillation (4) CHF (congestive heart failure) Code(s): I50.9 - HEART FAILURE, UNSPECIFIED Qualifiers: Congestive heart failure type: unspecified congestive heart failure type Congestive heart failure chronicity: chronic Qualified Code(s): I50.9 - Heart failure, unspecified (5) GERD (gastroesophageal reflux disease) Code(s): K21.9 - GASTRO-ESOPHAGEAL REFLUX DISEASE WITHOUT ESOPHAGITIS (6) HTN (hypertension) Code(s): I10 - ESSENTIAL (PRIMARY) HYPERTENSION (7) Hyperlipemia Code(s): E78.5 - HYPERLIPIDEMIA, UNSPECIFIED (8) Hypothyroidism Code(s): E03.9 - HYPOTHYROIDISM, UNSPECIFIED (9) PVD (peripheral vascular disease) Code(s): I73.9 - PERIPHERAL VASCULAR DISEASE, UNSPECIFIED altered mental status which has improved was going to stop abx wbc has climbed up will see what is the wbc tomorrow and make the decision plan continue abx incentive kimberly oob monitor wbc
[2017-05-25] MEDS: methylPREDNISolone NA SUCC 40 MG/1 ML VIAL IVPB SCH (19:03)
[2017-05-25] MEDS: DULoxetine HCL 30 MG CAPSULE.DR (FP) PO SCH (21:57)
[2017-05-25] MEDS: DOCUSATE SODIUM 100 MG CAPSULE (FP) PO SCH (21:57)
[2017-05-25] MEDS: ATORVASTATIN CA 10 MG TABLET (FP) PO SCH (21:57)
[2017-05-25] MEDS: ASCORBIC ACID 500 MG TABLET (FP) PO SCH (21:57)
[2017-05-26] MEDS ORDERED: PT OWN MED DRAWER 7, Y5N ONE ×2 (02:39→09:41)
[2017-05-26] MEDS: MEROPENEM 1 GM in DEXTROSE 5%-WATER - 100 ML IVPB SCH ×2 (02:46→09:44)
[2017-05-26] MEDS: SODIUM CHLORIDE 1,000 ML IV SCH (02:48)
[2017-05-26] MEDS: LEVOTHYROXINE NA 50 MCG TABLET (FP) PO SCH (06:49)
[2017-05-26 07:32] LABS: MCH 33.2 pg (25.7-33.7); MCHC 33.6 g/dl (32.0-35.9); MEAN CELL VOLUME 98.7 fl (80-96); MEAN PLT VOLUME 9.1 fl (7.5-11.1); PLATELET COUNT 158 K/MM3 (134-434); RDW 19.6 % (11.9-15.9); WHITE BLOOD COUNT 11.5 K/mm3 (4.0-10.0)
[2017-05-26 07:46] LABS: ALBUMIN 2.5 g/dl (3.4-5.0); ANION GAP 2 (8-16); CALCIUM 8.4 mg/dL (8.5-10.1); CO2 36 mmol/L (21-32); CREATININE 0.5 mg/dL (0.7-1.3); GLUCOSE,RANDOM 73 mg/dL (74-106); SGOT/AST 33 U/L (15-37); SGPT/ALT 19 U/L (12-78)
[2017-05-26 07:48] LABS: ALK PHOS 41 U/L (45-117); BILIRUBIN,TOTAL 0.9 mg/dL (0.2-1.0); TOT PROT 5.2 g/dl (6.4-8.2)
[2017-05-26] MEDS: AMINO ACIDS/PROTEIN HYDROLYS 30 ML LIQUID.PKT PO SCH ×2 (09:01→16:59)
[2017-05-26] MEDS: LACTOBACILLUS ACIDOPHILUS 1 EACH TAB (FP) PO SCH (09:42)
[2017-05-26] MEDS: predniSONE 10 MG TABLET (UD) PO SCH (09:42)
[2017-05-26] MEDS: METOPROLOL TARTRATE 25 MG TABLET (FP) PO SCH ×2 (09:42→21:10)
[2017-05-26] MEDS: SENNOSIDES 8.6MG TABLET (FP) PO SCH (09:42)
[2017-05-26] MEDS: RANITIDINE HCL 150 MG TABLET (FP) PO SCH ×2 (09:43→21:10)
[2017-05-26] MEDS: FLUTICASONE PROP 0.05% 16 GM NASAL SPRAY NS SCH (09:43)
[2017-05-26] MEDS: GABAPENTIN 300 MG CAPSULE (FP) PO SCH ×2 (09:43→21:09)
[2017-05-26] MEDS: CHOLECALCIFEROL (VITAMIN D3) 1,000 UNIT TABLET (FP) PO SCH (09:43)
[2017-05-26] MEDS: TIOTROPIUM BROMIDE 18 MCG/INH (DEVICE W/ 5 CAPSULES) IH SCH (09:43)
[2017-05-26] MEDS: BRIMONIDINE TARTRATE 0.15% OPHTHALMIC 5 ML BOTTLE OD SCH ×2 (09:44→21:10)
[2017-05-26 10:25] LABS: METAMYELOCYTE 1 % (0-2); MYELOCYTE 1 % (0-2); PLATELET ESTIMATE ADEQUATE (NORMAL); TOTAL CELLS COUNTED 100
--- NOTE | 2017-05-26 10:35 | PN ---
Progress Note, Physician History of Present Illness: Feeling OK this morning, breathing not bothering him laying in bed. Urine has been clearing as well, with no blood currently in nelson catheter - Current Medication List Current Medications: Active Medications Acetaminophen (Tylenol -) 650 mg PO Q6H PRN PRN Reason: FEVER OR PAIN Last Admin: 05/19/17 00:53 Dose: 650 mg Al Hydroxide/Mg Hydroxide (Mylanta Oral Suspension -) 30 ml PO Q6H PRN PRN Reason: INDIGESTION Last Admin: 05/13/17 13:00 Dose: 30 ml Albuterol/Ipratropium (Duoneb -) 1 amp NEB Q4H PRN PRN Reason: SHORTNESS OF BREATH Last Admin: 05/21/17 10:38 Dose: 1 amp Amino Acids (Prosource No Carb Liquid Pkt) 30 ml PO BID@0800,1730 [facility] Last Admin: 05/26/17 09:01 Dose: 30 ml Ascorbic Acid (Vitamin C -) 500 mg PO HS [facility] Last Admin: 05/25/17 21:57 Dose: 500 mg Atorvastatin Calcium (Lipitor -) 10 mg PO HS [facility] Last Admin: 05/25/17 21:57 Dose: 10 mg Brimonidine Tartrate (Alphagan 0.15% -) 1 drop OD BID [facility] Last Admin: 05/26/17 09:44 Dose: 1 drop Cholecalciferol (Vitamin D3 -) 1,000 unit PO DAILY [facility] Last Admin: 05/26/17 09:43 Dose: 1,000 unit Docusate Sodium (Colace -) 200 mg PO HS [facility] Last Admin: 05/25/17 21:57 Dose: 200 mg Duloxetine HCl (Cymbalta -) 60 mg PO HS [facility] Last Admin: 05/25/17 21:57 Dose: 60 mg Fluticasone Propionate (Flonase -) 2 spray NS DAILY [facility] Last Admin: 05/26/17 09:43 Dose: 2 sprays Gabapentin (Neurontin -) 600 mg PO BID [facility] Last Admin: 05/26/17 09:43 Dose: 600 mg Sodium Chloride (Normal Saline -) 1,000 mls @ 50 mls/hr IV ASDIR [facility] Last Admin: 05/26/17 02:48 Dose: 50 mls/hr Meropenem 1 gm/ Dextrose 100 mls @ 100 mls/hr IVPB Q8H-IV MICHAEL PRN Reason: Protocol Last Admin: 05/26/17 09:44 Dose: 100 mls/hr Lactobacillus Acidophilus (Bacid -) 1 tab PO DAILY [facility] Last Admin: 05/26/17 09:42 Dose: 1 tab Levothyroxine Sodium (Synthroid -) 50 mcg PO DAILY@0700 [facility] Last Admin: 05/26/17 06:49 Dose: 50 mcg Metoprolol Tartrate (Lopressor -) 25 mg PO BID [facility] Last Admin: 05/26/17 09:42 Dose: 25 mg Prednisone (Deltasone -) 30 mg PO DAILY [facility] Last Admin: 05/26/17 09:42 Dose: 30 mg Ranitidine HCl (Zantac -) 150 mg PO BID [facility] Last Admin: 05/26/17 09:43 Dose: 150 mg Senna (Senna -) 2 tab PO DAILY [facility] Last Admin: 05/26/17 09:42 Dose: 2 tab Tiotropium [place] (Spiriva -) 1 puff IH DAILY [facility] Last Admin: 05/26/17 09:43 Dose: 1 puff - Objective Vital Signs: Vital Signs Temperature 97.5 F L 05/26/17 06:39 Pulse Rate 6 L 05/26/17 06:39 Respiratory Rate 20 05/26/17 06:39 Blood Pressure 146/81 05/26/17 06:39 O2 Sat by Pulse Oximetry (%) 97 05/25/17 21:00 Constitutional: Yes: No Distress, Calm Neck: Yes: Supple, Trachea Midline Cardiovascular: Yes: Regular Rate and Rhythm, S1, S2. No: Murmur Respiratory: Yes: Regular, Rhonchi (bilaterally) Gastrointestinal: Yes: Normal Bowel Sounds, Soft. No: Distention, Tenderness Genitourinary: Yes: Nelson Present (with edi urine) Edema: No Neurological: Yes: Alert, Oriented Labs: CBC, BMP 05/26/17 06:30 05/26/17 06:30 Assessment/Plan Current Active Problems Acute respiratory acidosis (Acute) Acute respiratory failure (Acute) CAD (coronary artery disease) (Acute) Dysphagia causing pulmonary aspiration with swallowing (Acute) Hematuria (Acute) Shortness of breath (Acute) -cont breathing treatments, prednisone -abx continuing for elevated WBC
--- NOTE | 2017-05-26 10:46 | PN ---
Progress Note (short form) - Note Progress Note: PULMONARY Denies shortness of breath, cough or wheezing. No fevers or chills. Last Vital Signs Temp Pulse Resp BP Pulse Ox 97.5 F L 65 20 146/81 98 05/26/17 06:39 05/26/17 10:45 05/26/17 06:39 05/26/17 06:39 05/26/17 10:45 Gen: NAD at rest Heart: RRR Lung: decreased breath sounds at the bases Abd: soft, nontender Ext: no edema CBC, BMP 05/26/17 06:30 05/26/17 06:30 Active Medications Acetaminophen (Tylenol -) 650 mg PO Q6H PRN PRN Reason: FEVER OR PAIN Last Admin: 05/19/17 00:53 Dose: 650 mg Al Hydroxide/Mg Hydroxide (Mylanta Oral Suspension -) 30 ml PO Q6H PRN PRN Reason: INDIGESTION Last Admin: 05/13/17 13:00 Dose: 30 ml Albuterol/Ipratropium (Duoneb -) 1 amp NEB Q4H PRN PRN Reason: SHORTNESS OF BREATH Last Admin: 05/21/17 10:38 Dose: 1 amp Amino Acids (Prosource No Carb Liquid Pkt) 30 ml PO BID@0800,1730 [facility] Last Admin: 05/26/17 09:01 Dose: 30 ml Ascorbic Acid (Vitamin C -) 500 mg PO [facility] Last Admin: 05/25/17 21:57 Dose: 500 mg Atorvastatin Calcium (Lipitor -) 10 mg PO [facility] Last Admin: 05/25/17 21:57 Dose: 10 mg Brimonidine Tartrate (Alphagan 0.15% -) 1 drop OD BID [facility] Last Admin: 05/26/17 09:44 Dose: 1 drop Cholecalciferol (Vitamin D3 -) 1,000 unit PO DAILY [facility] Last Admin: 05/26/17 09:43 Dose: 1,000 unit Docusate Sodium (Colace -) 200 mg PO [facility] Last Admin: 05/25/17 21:57 Dose: 200 mg Duloxetine HCl (Cymbalta -) 60 mg PO [facility] Last Admin: 05/25/17 21:57 Dose: 60 mg Fluticasone Propionate (Flonase -) 2 spray NS DAILY [facility] Last Admin: 05/26/17 09:43 Dose: 2 sprays Gabapentin (Neurontin -) 600 mg PO BID [facility] Last Admin: 05/26/17 09:43 Dose: 600 mg Sodium Chloride (Normal Saline -) 1,000 mls @ 50 mls/hr IV ASDIR [facility] Last Admin: 05/26/17 02:48 Dose: 50 mls/hr Meropenem 1 gm/ Dextrose 100 mls @ 100 mls/hr IVPB Q8H-IV MICHAEL PRN Reason: Protocol Last Admin: 05/26/17 09:44 Dose: 100 mls/hr Lactobacillus Acidophilus (Bacid -) 1 tab PO DAILY [facility] Last Admin: 05/26/17 09:42 Dose: 1 tab Levothyroxine Sodium (Synthroid -) 50 mcg PO DAILY@0700 [facility] Last Admin: 05/26/17 06:49 Dose: 50 mcg Metoprolol Tartrate (Lopressor -) 25 mg PO BID [facility] Last Admin: 05/26/17 09:42 Dose: 25 mg Prednisone (Deltasone -) 30 mg PO DAILY [facility] Last Admin: 05/26/17 09:42 Dose: 30 mg Ranitidine HCl (Zantac -) 150 mg PO BID [facility] Last Admin: 05/26/17 09:43 Dose: 150 mg Senna (Senna -) 2 tab PO DAILY [facility] Last Admin: 05/26/17 09:42 Dose: 2 tab Tiotropium [place] (Spiriva -) 1 puff IH DAILY [facility] Last Admin: 05/26/17 09:43 Dose: 1 puff A/P Pneumonia Atrial Fibrillation LV Diastolic Dysfunction CAD HTN Hyperlipidemia - complete antibiotics per ID - continue hold lasix as pt appears dry - prednisone taper - inhaled bronchodilators - rate controlled - continue anticoagulation
--- NOTE | 2017-05-26 12:09 | PN ---
Progress Note, Physician History of Present Illness: patient stable doing better - Current Medication List Current Medications: Active Medications Acetaminophen (Tylenol -) 650 mg PO Q6H PRN PRN Reason: FEVER OR PAIN Last Admin: 05/19/17 00:53 Dose: 650 mg Al Hydroxide/Mg Hydroxide (Mylanta Oral Suspension -) 30 ml PO Q6H PRN PRN Reason: INDIGESTION Last Admin: 05/13/17 13:00 Dose: 30 ml Albuterol/Ipratropium (Duoneb -) 1 amp NEB Q4H PRN PRN Reason: SHORTNESS OF BREATH Last Admin: 05/21/17 10:38 Dose: 1 amp Amino Acids (Prosource No Carb Liquid Pkt) 30 ml PO BID@0800,1730 [facility] Last Admin: 05/26/17 09:01 Dose: 30 ml Ascorbic Acid (Vitamin C -) 500 mg PO HS [facility] Last Admin: 05/25/17 21:57 Dose: 500 mg Atorvastatin Calcium (Lipitor -) 10 mg PO [facility] Last Admin: 05/25/17 21:57 Dose: 10 mg Brimonidine Tartrate (Alphagan 0.15% -) 1 drop OD BID [facility] Last Admin: 05/26/17 09:44 Dose: 1 drop Cholecalciferol (Vitamin D3 -) 1,000 unit PO DAILY [facility] Last Admin: 05/26/17 09:43 Dose: 1,000 unit Docusate Sodium (Colace -) 200 mg PO HS [facility] Last Admin: 05/25/17 21:57 Dose: 200 mg Duloxetine HCl (Cymbalta -) 60 mg PO [facility] Last Admin: 05/25/17 21:57 Dose: 60 mg Fluticasone Propionate (Flonase -) 2 spray NS DAILY [facility] Last Admin: 05/26/17 09:43 Dose: 2 sprays Gabapentin (Neurontin -) 600 mg PO BID [facility] Last Admin: 05/26/17 09:43 Dose: 600 mg Sodium Chloride (Normal Saline -) 1,000 mls @ 50 mls/hr IV ASDIR [facility] Last Admin: 05/26/17 02:48 Dose: 50 mls/hr Lactobacillus Acidophilus (Bacid -) 1 tab PO DAILY [facility] Last Admin: 05/26/17 09:42 Dose: 1 tab Levothyroxine Sodium (Synthroid -) 50 mcg PO DAILY@0700 [facility] Last Admin: 05/26/17 06:49 Dose: 50 mcg Metoprolol Tartrate (Lopressor -) 25 mg PO BID [facility] Last Admin: 05/26/17 09:42 Dose: 25 mg Prednisone (Deltasone -) 20 mg PO DAILY [facility] Ranitidine HCl (Zantac -) 150 mg PO BID [facility] Last Admin: 05/26/17 09:43 Dose: 150 mg Senna (Senna -) 2 tab PO DAILY [facility] Last Admin: 05/26/17 09:42 Dose: 2 tab Tiotropium [place] (Spiriva -) 1 puff IH DAILY [facility] Last Admin: 05/26/17 09:43 Dose: 1 puff - Objective Vital Signs: Vital Signs Temperature 97.4 F L 05/26/17 10:00 Pulse Rate 65 05/26/17 10:45 Respiratory Rate 20 05/26/17 10:00 Blood Pressure 156/77 05/26/17 10:00 O2 Sat by Pulse Oximetry (%) 98 05/26/17 10:45 Constitutional: Yes: No Distress, Calm Cardiovascular: Yes: Regular Rate and Rhythm Respiratory: Yes: Regular, CTA Bilaterally Gastrointestinal: Yes: Normal Bowel Sounds, Soft Genitourinary: Yes: Simmons Present Musculoskeletal: Yes: WNL Extremities: Yes: WNL Neurological: Yes: Alert, Oriented Psychiatric: Yes: Alert, Oriented Labs: CBC, BMP 05/26/17 06:30 05/26/17 06:30 Assessment/Plan Problem List - Problems (1) Pneumonia Code(s): J18.9 - PNEUMONIA, UNSPECIFIED ORGANISM Qualifiers: Laterality: right Lung location: lower lobe of lung (2) Alkalosis, metabolic Code(s): E87.3 - ALKALOSIS (3) Atrial fibrillation Code(s): I48.91 - UNSPECIFIED ATRIAL FIBRILLATION Qualifiers: Atrial fibrillation type: chronic Qualified Code(s): I48.2 - Chronic atrial fibrillation (4) CHF (congestive heart failure) Code(s): I50.9 - HEART FAILURE, UNSPECIFIED Qualifiers: Congestive heart failure type: unspecified congestive heart failure type Congestive heart failure chronicity: chronic Qualified Code(s): I50.9 - Heart failure, unspecified (5) GERD (gastroesophageal reflux disease) Code(s): K21.9 - GASTRO-ESOPHAGEAL REFLUX DISEASE WITHOUT ESOPHAGITIS (6) HTN (hypertension) Code(s): I10 - ESSENTIAL (PRIMARY) HYPERTENSION (7) Hyperlipemia Code(s): E78.5 - HYPERLIPIDEMIA, UNSPECIFIED (8) Hypothyroidism Code(s): E03.9 - HYPOTHYROIDISM, UNSPECIFIED (9) PVD (peripheral vascular disease) Code(s): I73.9 - PERIPHERAL VASCULAR DISEASE, UNSPECIFIED Assessment/Plan (1) Community acquired pneumonia (2) Alkalosis, metabolic Code(s): E87.3 - ALKALOSIS (3) Atrial fibrillation Code(s): I48.91 - UNSPECIFIED ATRIAL FIBRILLATION Qualifiers: Atrial fibrillation type: chronic Qualified Code(s): I48.2 - Chronic atrial fibrillation (4) CHF (congestive heart failure) Code(s): I50.9 - HEART FAILURE, UNSPECIFIED Qualifiers: Congestive heart failure type: unspecified congestive heart failure type Congestive heart failure chronicity: chronic Qualified Code(s): I50.9 - Heart failure, unspecified (5) GERD (gastroesophageal reflux disease) Code(s): K21.9 - GASTRO-ESOPHAGEAL REFLUX DISEASE WITHOUT ESOPHAGITIS (6) HTN (hypertension) Code(s): I10 - ESSENTIAL (PRIMARY) HYPERTENSION (7) Hyperlipemia Code(s): E78.5 - HYPERLIPIDEMIA, UNSPECIFIED (8) Hypothyroidism Code(s): E03.9 - HYPOTHYROIDISM, UNSPECIFIED (9) PVD (peripheral vascular disease) Code(s): I73.9 - PERIPHERAL VASCULAR DISEASE, UNSPECIFIED altered mental status which has improved wbc trending down plan escobar stop abx and monitor incentive kimberly rest as per primary
[2017-05-26] MEDS: ASCORBIC ACID 500 MG TABLET (FP) PO SCH (21:09)
[2017-05-26] MEDS: DULoxetine HCL 30 MG CAPSULE.DR (FP) PO SCH (21:09)
[2017-05-26] MEDS: ATORVASTATIN CA 10 MG TABLET (FP) PO SCH (21:09)
[2017-05-26] MEDS: DOCUSATE SODIUM 100 MG CAPSULE (FP) PO SCH (21:09)
[2017-05-27] MEDS: SODIUM CHLORIDE 1,000 ML IV SCH ×2 (01:53→06:14)
[2017-05-27] MEDS: LEVOTHYROXINE NA 50 MCG TABLET (FP) PO SCH (06:20)
[2017-05-27 07:55] LABS: MCH 33.1 pg (25.7-33.7); MCHC 33.1 g/dl (32.0-35.9); MEAN CELL VOLUME 99.9 fl (80-96); MEAN PLT VOLUME 9.3 fl (7.5-11.1); PLATELET COUNT 160 K/MM3 (134-434); RDW 18.9 % (11.9-15.9); WHITE BLOOD COUNT 11.3 K/mm3 (4.0-10.0)
[2017-05-27] MEDS: AMINO ACIDS/PROTEIN HYDROLYS 30 ML LIQUID.PKT PO SCH ×2 (08:12→17:00)
[2017-05-27 08:55] LABS: ALBUMIN 2.6 g/dl (3.4-5.0); ALK PHOS 45 U/L (45-117); ANION GAP 8 (8-16); BILIRUBIN,TOTAL 0.6 mg/dL (0.2-1.0); CALCIUM 8.6 mg/dL (8.5-10.1); CO2 32 mmol/L (21-32); CREATININE 0.4 mg/dL (0.7-1.3); GLUCOSE,RANDOM 81 mg/dL (74-106); SGOT/AST 29 U/L (15-37); SGPT/ALT 20 U/L (12-78); TOT PROT 5.1 g/dl (6.4-8.2)
--- NOTE | 2017-05-27 09:57 | PN ---
Progress Note (short form) - Note Progress Note: No acute events overnight. NAD. Appears overall better. No CP or SOB. Intake & Output 05/24/17 05/25/17 05/26/17 05/27/17 23:59 23:59 23:59 23:59 Intake Total 2166 2850 2200 600 Output Total 939 922 0051 300 Balance 1566 2150 1100 300 Last Vital Signs Temp Pulse Resp BP Pulse Ox 97.8 F 86 20 126/67 98 05/27/17 09:14 05/27/17 09:14 05/27/17 09:14 05/27/17 09:14 05/26/17 21:00 Active Medications Acetaminophen (Tylenol -) 650 mg PO Q6H PRN PRN Reason: FEVER OR PAIN Last Admin: 05/19/17 00:53 Dose: 650 mg Al Hydroxide/Mg Hydroxide (Mylanta Oral Suspension -) 30 ml PO Q6H PRN PRN Reason: INDIGESTION Last Admin: 05/13/17 13:00 Dose: 30 ml Albuterol/Ipratropium (Duoneb -) 1 amp NEB Q4H PRN PRN Reason: SHORTNESS OF BREATH Last Admin: 05/21/17 10:38 Dose: 1 amp Amino Acids (Prosource No Carb Liquid Pkt) 30 ml PO BID@0800,1730 [facility] Last Admin: 05/27/17 08:12 Dose: 30 ml Ascorbic Acid (Vitamin C -) 500 mg PO HS [facility] Last Admin: 05/26/17 21:09 Dose: 500 mg Atorvastatin Calcium (Lipitor -) 10 mg PO HS [facility] Last Admin: 05/26/17 21:09 Dose: 10 mg Brimonidine Tartrate (Alphagan 0.15% -) 1 drop OD BID [facility] Last Admin: 05/26/17 21:10 Dose: 1 drop Cholecalciferol (Vitamin D3 -) 1,000 unit PO DAILY [facility] Last Admin: 05/26/17 09:43 Dose: 1,000 unit Docusate Sodium (Colace -) 200 mg PO HS [facility] Last Admin: 05/26/17 21:09 Dose: 200 mg Duloxetine HCl (Cymbalta -) 60 mg PO HS [facility] Last Admin: 05/26/17 21:09 Dose: 60 mg Fluticasone Propionate (Flonase -) 2 spray NS DAILY [facility] Last Admin: 05/26/17 09:43 Dose: 2 sprays Gabapentin (Neurontin -) 600 mg PO BID [facility] Last Admin: 05/26/17 21:09 Dose: 600 mg Sodium Chloride (Normal Saline -) 1,000 mls @ 50 mls/hr IV ASDIR [facility] Last Admin: 05/27/17 06:14 Dose: Not Given Lactobacillus Acidophilus (Bacid -) 1 tab PO DAILY [facility] Last Admin: 05/26/17 09:42 Dose: 1 tab Levothyroxine Sodium (Synthroid -) 50 mcg PO DAILY@0700 [facility] Last Admin: 05/27/17 06:20 Dose: 50 mcg Metoprolol Tartrate (Lopressor -) 25 mg PO BID [facility] Last Admin: 05/26/17 21:10 Dose: 25 mg Prednisone (Deltasone -) 20 mg PO DAILY [facility] Ranitidine HCl (Zantac -) 150 mg PO BID [facility] Last Admin: 05/26/17 21:10 Dose: 150 mg Senna (Senna -) 2 tab PO DAILY [facility] Last Admin: 05/26/17 09:42 Dose: 2 tab Tiotropium [place] (Spiriva -) 1 puff IH DAILY [facility] Last Admin: 05/26/17 09:43 Dose: 1 puff Gen: NAD at rest Heart: RRR Lung: decreased breath sounds at the bases Abd: soft, nontender Ext: no edema Laboratory Results - last 24 hr 05/23/17 05/26/17 05/27/17 13:45 06:30 06:00 WBC 11.5 H 11.3 H RBC 3.03 L 2.95 L Hgb 10.1 L 9.8 L Hct 29.9 L 29.5 L MCV 98.7 H 99.9 H MCH 33.2 33.1 MCHC 33.6 33.1 RDW 19.6 H 18.9 H Plt Count 158 160 MPV 9.1 9.3 Total Counted 100 Neutrophils % No Result Required. Neutrophils % (Manual) 89 H Lymphocytes % No Result Required. Lymphocytes % (Manual) 3 L D Monocytes % (Manual) 6 Myelocytes % (Man) 1 D Platelet Estimate Adequate Sodium Potassium Chloride Carbon Dioxide Anion Gap BUN Creatinine Creat Clearance w eGFR Random Glucose Calcium Total Bilirubin AST ALT Alkaline Phosphatase Total Protein Albumin Blood Type A POSITIVE Antibody Screen Negative Crossmatch See Detail 05/27/17 06:00 WBC RBC Hgb Hct MCV MCH MCHC RDW Plt Count MPV Total Counted Neutrophils % Neutrophils % (Manual) Lymphocytes % Lymphocytes % (Manual) Monocytes % (Manual) Myelocytes % (Man) Platelet Estimate Sodium 141 Potassium 4.1 Chloride 101 Carbon Dioxide 32 Anion Gap 8 BUN 23 H Creatinine 0.4 L Creat Clearance w eGFR > 60 Random Glucose 81 Calcium 8.6 Total Bilirubin 0.6 D AST 29 ALT 20 Alkaline Phosphatase 45 Total Protein 5.1 L Albumin 2.6 L Blood Type Antibody Screen Crossmatch A/P Pneumonia Atrial Fibrillation LV Diastolic Dysfunction CAD HTN Hyperlipidemia - Off ABX at present - Daily assessment for Lasix need - prednisone taper - inhaled bronchodilators - rate controlled - continue anticoagulation - D/C planning Dr Boo
[2017-05-27 10:02] LABS: METAMYELOCYTE 1 % (0-2); MYELOCYTE 1 % (0-2); TOTAL CELLS COUNTED 100
[2017-05-27] MEDS: SENNOSIDES 8.6MG TABLET (FP) PO SCH (10:03)
[2017-05-27] MEDS: LACTOBACILLUS ACIDOPHILUS 1 EACH TAB (FP) PO SCH (10:03)
[2017-05-27] MEDS: RANITIDINE HCL 150 MG TABLET (FP) PO SCH ×2 (10:03→21:28)
[2017-05-27] MEDS: CHOLECALCIFEROL (VITAMIN D3) 1,000 UNIT TABLET (FP) PO SCH (10:03)
[2017-05-27] MEDS: predniSONE 20 MG TABLET (UD) PO SCH (10:04)
[2017-05-27] MEDS ORDERED: PT OWN MED DRAWER 7, Y5N ONE ×2 (10:04→10:07)
[2017-05-27] MEDS: FLUTICASONE PROP 0.05% 16 GM NASAL SPRAY NS SCH (10:05)
[2017-05-27] MEDS: METOPROLOL TARTRATE 25 MG TABLET (FP) PO SCH ×2 (10:05→21:31)
[2017-05-27] MEDS: TIOTROPIUM BROMIDE 18 MCG/INH (DEVICE W/ 5 CAPSULES) IH SCH (10:06)
[2017-05-27] MEDS: GABAPENTIN 300 MG CAPSULE (FP) PO SCH ×2 (10:09→21:28)
[2017-05-27] MEDS: BRIMONIDINE TARTRATE 0.15% OPHTHALMIC 5 ML BOTTLE OD SCH ×2 (10:21→21:37)
--- NOTE | 2017-05-27 11:44 | PN ---
Progress Note, [employer] - Note Progress Note: Selected Entries 05/25/17 05/25/17 05/25/17 02:00 05:30 09:00 Breakfast Supper Temperature 97.7 F 97 F L 97.7 F 05/25/17 05/25/17 05/26/17 17:33 22:00 06:39 Breakfast Supper Temperature 98.0 F 97.6 F 97.5 F L 05/26/17 05/26/17 05/26/17 10:00 14:42 17:34 Breakfast 75% Supper Temperature 97.4 F L 97.8 F 99.6 F 05/26/17 05/26/17 05/27/17 22:00 23:04 06:00 Breakfast Supper 100% Temperature 97.8 F 97.6 F 05/27/17 09:14 Breakfast Supper Temperature 97.8 F Laboratory Tests 05/25/17 05/26/17 05/27/17 06:35 06:30 06:00 WBC 13.1 H 11.5 H 11.3 H Educated pt/staff on sw rec based on mbs.
--- NOTE | 2017-05-27 12:13 | PN ---
Progress Note, Physician History of Present Illness: patient was slightly confused still confused has remained stable - Current Medication List Current Medications: Active Medications Acetaminophen (Tylenol -) 650 mg PO Q6H PRN PRN Reason: FEVER OR PAIN Last Admin: 05/19/17 00:53 Dose: 650 mg Al Hydroxide/Mg Hydroxide (Mylanta Oral Suspension -) 30 ml PO Q6H PRN PRN Reason: INDIGESTION Last Admin: 05/13/17 13:00 Dose: 30 ml Albuterol/Ipratropium (Duoneb -) 1 amp NEB Q4H PRN PRN Reason: SHORTNESS OF BREATH Last Admin: 05/21/17 10:38 Dose: 1 amp Amino Acids (Prosource No Carb Liquid Pkt) 30 ml PO BID@0800,1730 [facility] Last Admin: 05/27/17 08:12 Dose: 30 ml Ascorbic Acid (Vitamin C -) 500 mg PO HS [facility] Last Admin: 05/26/17 21:09 Dose: 500 mg Atorvastatin Calcium (Lipitor -) 10 mg PO HS [facility] Last Admin: 05/26/17 21:09 Dose: 10 mg Brimonidine Tartrate (Alphagan 0.15% -) 1 drop OD BID [facility] Last Admin: 05/27/17 10:21 Dose: 1 drop Cholecalciferol (Vitamin D3 -) 1,000 unit PO DAILY [facility] Last Admin: 05/27/17 10:03 Dose: 1,000 unit Docusate Sodium (Colace -) 200 mg PO HS [facility] Last Admin: 05/26/17 21:09 Dose: 200 mg Duloxetine HCl (Cymbalta -) 60 mg PO HS [facility] Last Admin: 05/26/17 21:09 Dose: 60 mg Fluticasone Propionate (Flonase -) 2 spray NS DAILY [facility] Last Admin: 05/27/17 10:05 Dose: 2 sprays Gabapentin (Neurontin -) 600 mg PO BID [facility] Last Admin: 05/27/17 10:09 Dose: 600 mg Sodium Chloride (Normal Saline -) 1,000 mls @ 50 mls/hr IV ASDIR [facility] Last Admin: 05/27/17 06:14 Dose: Not Given Lactobacillus Acidophilus (Bacid -) 1 tab PO DAILY [facility] Last Admin: 05/27/17 10:03 Dose: 1 tab Levothyroxine [place]odium (Synthroid -) 50 mcg PO DAILY@0700 [facility] Last Admin: 05/27/17 06:20 Dose: 50 mcg Metoprolol Tartrate (Lopressor -) 25 mg PO BID [facility] Last Admin: 05/27/17 10:05 Dose: 25 mg Prednisone (Deltasone -) 20 mg PO DAILY [facility] Last Admin: 05/27/17 10:04 Dose: 20 mg Ranitidine HCl (Zantac -) 150 mg PO BID [facility] Last Admin: 05/27/17 10:03 Dose: 150 mg Senna (Senna -) 2 tab PO DAILY [facility] Last Admin: 05/27/17 10:03 Dose: 2 tab Tiotropium [place] (Spiriva -) 1 puff IH DAILY [facility] Last Admin: 05/27/17 10:06 Dose: 1 puff - Objective Vital Signs: Vital Signs Temperature 97.8 F 05/27/17 09:14 Pulse Rate 84 05/27/17 11:08 Respiratory Rate 20 05/27/17 09:14 Blood Pressure 126/67 05/27/17 09:14 O2 Sat by Pulse Oximetry (%) 93 L 05/27/17 12:09 Constitutional: Yes: No Distress, Calm Respiratory: Yes: Regular, CTA Bilaterally Gastrointestinal: Yes: Normal Bowel Sounds Musculoskeletal: Yes: WNL Extremities: Yes: WNL Labs: CBC, BMP 05/27/17 06:00 05/27/17 06:00 Assessment/Plan Problem List - Problems (1) Pneumonia Code(s): J18.9 - PNEUMONIA, UNSPECIFIED ORGANISM Qualifiers: Laterality: right Lung location: lower lobe of lung (2) Alkalosis, metabolic Code(s): E87.3 - ALKALOSIS (3) Atrial fibrillation Code(s): I48.91 - UNSPECIFIED ATRIAL FIBRILLATION Qualifiers: Atrial fibrillation type: chronic Qualified Code(s): I48.2 - Chronic atrial fibrillation (4) CHF (congestive heart failure) Code(s): I50.9 - HEART FAILURE, UNSPECIFIED Qualifiers: Congestive heart failure type: unspecified congestive heart failure type Congestive heart failure chronicity: chronic Qualified Code(s): I50.9 - Heart failure, unspecified (5) GERD (gastroesophageal reflux disease) Code(s): K21.9 - GASTRO-ESOPHAGEAL REFLUX DISEASE WITHOUT ESOPHAGITIS (6) HTN (hypertension) Code(s): I10 - ESSENTIAL (PRIMARY) HYPERTENSION (7) Hyperlipemia Code(s): E78.5 - HYPERLIPIDEMIA, UNSPECIFIED (8) Hypothyroidism Code(s): E03.9 - HYPOTHYROIDISM, UNSPECIFIED (9) PVD (peripheral vascular disease) Code(s): I73.9 - PERIPHERAL VASCULAR DISEASE, UNSPECIFIED Assessment/Plan (1) Community acquired pneumonia (2) Alkalosis, metabolic Code(s): E87.3 - ALKALOSIS (3) Atrial fibrillation Code(s): I48.91 - UNSPECIFIED ATRIAL FIBRILLATION Qualifiers: Atrial fibrillation type: chronic Qualified Code(s): I48.2 - Chronic atrial fibrillation (4) CHF (congestive heart failure) Code(s): I50.9 - HEART FAILURE, UNSPECIFIED Qualifiers: Congestive heart failure type: unspecified congestive heart failure type Congestive heart failure chronicity: chronic Qualified Code(s): I50.9 - Heart failure, unspecified (5) GERD (gastroesophageal reflux disease) Code(s): K21.9 - GASTRO-ESOPHAGEAL REFLUX DISEASE WITHOUT ESOPHAGITIS (6) HTN (hypertension) Code(s): I10 - ESSENTIAL (PRIMARY) HYPERTENSION (7) Hyperlipemia Code(s): E78.5 - HYPERLIPIDEMIA, UNSPECIFIED (8) Hypothyroidism Code(s): E03.9 - HYPOTHYROIDISM, UNSPECIFIED (9) PVD (peripheral vascular disease) Code(s): I73.9 - PERIPHERAL VASCULAR DISEASE, UNSPECIFIED altered mental status which has improved wbc trending down plan continue monitoring rest as per primary team
[2017-05-27] MEDS ORDERED: SODIUM CHLORIDE 1,000 ML IV SCH (15:00)
--- NOTE | 2017-05-27 16:45 | PN ---
Progress Note, Physician Chief Complaint: Mr Rivas says he is feeling good today. Denies cp, sob, n/v. says having episodes of confusion. - Current Medication List Current Medications: Active Medications Acetaminophen (Tylenol -) 650 mg PO Q6H PRN PRN Reason: FEVER OR PAIN Last Admin: 05/19/17 00:53 Dose: 650 mg Al Hydroxide/Mg Hydroxide (Mylanta Oral Suspension -) 30 ml PO Q6H PRN PRN Reason: INDIGESTION Last Admin: 05/13/17 13:00 Dose: 30 ml Albuterol/Ipratropium (Duoneb -) 1 amp NEB Q4H PRN PRN Reason: SHORTNESS OF BREATH Last Admin: 05/21/17 10:38 Dose: 1 amp Amino Acids (Prosource No Carb Liquid Pkt) 30 ml PO BID@0800,1730 [facility] Last Admin: 05/27/17 08:12 Dose: 30 ml Ascorbic Acid (Vitamin C -) 500 mg PO HS [facility] Last Admin: 05/26/17 21:09 Dose: 500 mg Atorvastatin Calcium (Lipitor -) 10 mg PO HS [facility] Last Admin: 05/26/17 21:09 Dose: 10 mg Brimonidine Tartrate (Alphagan 0.15% -) 1 drop OD BID [facility] Last Admin: 05/27/17 10:21 Dose: 1 drop Cholecalciferol (Vitamin D3 -) 1,000 unit PO DAILY [facility] Last Admin: 05/27/17 10:03 Dose: 1,000 unit Docusate Sodium (Colace -) 200 mg PO HS [facility] Last Admin: 05/26/17 21:09 Dose: 200 mg Duloxetine HCl (Cymbalta -) 60 mg PO HS [facility] Last Admin: 05/26/17 21:09 Dose: 60 mg Fluticasone Propionate (Flonase -) 2 spray NS DAILY [facility] Last Admin: 05/27/17 10:05 Dose: 2 sprays Gabapentin (Neurontin -) 600 mg PO BID [facility] Last Admin: 05/27/17 10:09 Dose: 600 mg Lactobacillus Acidophilus (Bacid -) 1 tab PO DAILY [facility] Last Admin: 05/27/17 10:03 Dose: 1 tab Levothyroxine Sodium (Synthroid -) 50 mcg PO DAILY@0700 [facility] Last Admin: 05/27/17 06:20 Dose: 50 mcg Metoprolol Tartrate (Lopressor -) 25 mg PO BID [facility] Last Admin: 05/27/17 10:05 Dose: 25 mg Prednisone (Deltasone -) 20 mg PO DAILY [facility] Last Admin: 05/27/17 10:04 Dose: 20 mg Ranitidine HCl (Zantac -) 150 mg PO BID [facility] Last Admin: 05/27/17 10:03 Dose: 150 mg Senna (Senna -) 2 tab PO DAILY [facility] Last Admin: 05/27/17 10:03 Dose: 2 tab Tiotropium [place] (Spiriva -) 1 puff IH DAILY [facility] Last Admin: 05/27/17 10:06 Dose: 1 puff - Objective Vital Signs: Vital Signs Temperature 36.6 C 05/27/17 15:22 Pulse Rate 69 05/27/17 15:22 Respiratory Rate 20 05/27/17 15:22 Blood Pressure 144/67 05/27/17 15:22 O2 Sat by Pulse Oximetry (%) 100 05/27/17 14:45 Constitutional: Yes: Well Nourished, No Distress, Calm Cardiovascular: Yes: Regular Rate and Rhythm. No: Gallop, Murmur, Rub Respiratory: Yes: Regular, CTA Bilaterally. No: Rales, Rhonchi, Wheezes Gastrointestinal: Yes: Normal Bowel Sounds, Soft. No: Distention, Tenderness Genitourinary: Yes: Nelson Present Extremities: Yes: WNL Edema: No Labs: CBC, BMP 05/27/17 06:00 05/27/17 06:00 Problem List - Problems (1) Pneumonia Code(s): J18.9 - PNEUMONIA, UNSPECIFIED ORGANISM Qualifiers: Laterality: right Lung location: lower lobe of lung (2) Alkalosis, metabolic Code(s): E87.3 - ALKALOSIS (3) Atrial fibrillation Code(s): I48.91 - UNSPECIFIED ATRIAL FIBRILLATION Qualifiers: Atrial fibrillation type: chronic Qualified Code(s): I48.2 - Chronic atrial fibrillation (4) CHF (congestive heart failure) Code(s): I50.9 - HEART FAILURE, UNSPECIFIED Qualifiers: Congestive heart failure type: unspecified congestive heart failure type Congestive heart failure chronicity: chronic Qualified Code(s): I50.9 - Heart failure, unspecified (5) GERD (gastroesophageal reflux disease) Code(s): K21.9 - GASTRO-ESOPHAGEAL REFLUX DISEASE WITHOUT ESOPHAGITIS (6) HTN (hypertension) Code(s): I10 - ESSENTIAL (PRIMARY) HYPERTENSION (7) Hyperlipemia Code(s): E78.5 - HYPERLIPIDEMIA, UNSPECIFIED (8) Hypothyroidism Code(s): E03.9 - HYPOTHYROIDISM, UNSPECIFIED (9) PVD (peripheral vascular disease) Code(s): I73.9 - PERIPHERAL VASCULAR DISEASE, UNSPECIFIED (10) Acute respiratory failure Code(s): J96.00 - ACUTE RESPIRATORY FAILURE, UNSP W HYPOXIA OR HYPERCAPNIA Qualifiers: Respiratory failure complication: hypoxia and hypercapnia Qualified Code(s): J96.01 - Acute respiratory failure with hypoxia (11) Acute respiratory acidosis Code(s): E87.2 - ACIDOSIS (12) Hematuria Code(s): R31.9 - HEMATURIA, UNSPECIFIED Assessment/Plan (1) Community acquired pneumonia Assessment/Plan: -patient with post obstructive pneumonia, s/p expactoration of mucus plug -ID following -finished merrem today -monitor, make sure does not need further antibiotics (2) Respiratory acidosis Assessment/Plan: -resolved -no longer needing bipap -pulmonary following Code(s): (3) Atrial fibrillation Assessment/Plan: -rate controlled -continue metoprolol -d/rigo anticoagulants secondary to hematuria requiring transfusion Code(s): I48.91 - UNSPECIFIED ATRIAL FIBRILLATION Qualifiers: Atrial fibrillation type: chronic Qualified Code(s): I48.2 - Chronic atrial fibrillation (4) CHF (congestive heart failure) Assessment/Plan: -ECHO reviewed and cardiology following -not in exacerbation Code(s): I50.9 - HEART FAILURE, UNSPECIFIED Qualifiers: Congestive heart failure type: unspecified congestive heart failure type Congestive heart failure chronicity: chronic Qualified Code(s): I50.9 - Heart failure, unspecified (5) GERD (gastroesophageal reflux disease) Assessment/Plan: -continue zantac Code(s): K21.9 - GASTRO-ESOPHAGEAL REFLUX DISEASE WITHOUT ESOPHAGITIS (6) HTN (hypertension) Assessment/Plan: -controlled Code(s): I10 - ESSENTIAL (PRIMARY) HYPERTENSION (7) Hyperlipemia Assessment/Plan: -continue lipitor -hold fenofibrate secondary to inability to crush Code(s): E78.5 - HYPERLIPIDEMIA, UNSPECIFIED (8) Hypothyroidism Assessment/Plan: -continue synthroid Code(s): E03.9 - HYPOTHYROIDISM, UNSPECIFIED (9) PVD (peripheral vascular disease) Assessment/Plan: -holding lovenox -does not complain of claudication Code(s): I73.9 - PERIPHERAL VASCULAR DISEASE, UNSPECIFIED (10) Urinary retention -hematuria resolved -requested urology follow up concerning nelson and evaluation of hematuria (11) Metabolic encephalopathy -monitor, says patient is waxing/waning (12) Acute respiratory failure -resolved -pulmonary following (13) Uremia -back to baseline (14) Anemia -transfused with good response -monitor (15) Thrombocytopenia -resolved -secondary to sepsis -HIT antibodies negative (16) Hematuria -urology requested to follow up -currently resolved after holding anticoagulants
[2017-05-27] MEDS: ATORVASTATIN CA 10 MG TABLET (FP) PO SCH (21:28)
[2017-05-27] MEDS: DULoxetine HCL 30 MG CAPSULE.DR (FP) PO SCH (21:28)
[2017-05-27] MEDS: ASCORBIC ACID 500 MG TABLET (FP) PO SCH (21:28)
[2017-05-27] MEDS: DOCUSATE SODIUM 100 MG CAPSULE (FP) PO SCH (21:37)
[2017-05-28] MEDS: LEVOTHYROXINE NA 50 MCG TABLET (FP) PO SCH (06:17)
[2017-05-28 07:29] LABS: BASOPHIL 0.4 % (0-2.0); EOSINOPHIL 0.1 % (0-4.5); MCH 32.8 pg (25.7-33.7); MCHC 32.9 g/dl (32.0-35.9); MEAN CELL VOLUME 99.6 fl (80-96); MEAN PLT VOLUME 9.1 fl (7.5-11.1); NEUTROPHILS 86.3 % (42.8-82.8); PLATELET COUNT 165 K/MM3 (134-434); RDW 18.7 % (11.9-15.9); WHITE BLOOD COUNT 13.7 K/mm3 (4.0-10.0)
[2017-05-28] MEDS: AMINO ACIDS/PROTEIN HYDROLYS 30 ML LIQUID.PKT PO SCH ×2 (08:37→18:28)
[2017-05-28 08:40] LABS: ANION GAP 7 (8-16); CALCIUM 8.8 mg/dL (8.5-10.1); CO2 33 mmol/L (21-32); CREATININE 0.4 mg/dL (0.7-1.3); GLUCOSE,RANDOM 85 mg/dL (74-106); PHOSPHOROUS 2.8 mg/dL (2.5-4.9)
[2017-05-28] MEDS ORDERED: PT OWN MED DRAWER 7, Y5N ONE ×3 (09:37→11:44)
[2017-05-28] MEDS: CHOLECALCIFEROL (VITAMIN D3) 1,000 UNIT TABLET (FP) PO SCH (09:39)
[2017-05-28] MEDS: RANITIDINE HCL 150 MG TABLET (FP) PO SCH ×2 (09:39→21:35)
[2017-05-28] MEDS: predniSONE 20 MG TABLET (UD) PO SCH (09:39)
[2017-05-28] MEDS: GABAPENTIN 300 MG CAPSULE (FP) PO SCH ×2 (09:39→21:34)
[2017-05-28] MEDS: LACTOBACILLUS ACIDOPHILUS 1 EACH TAB (FP) PO SCH (09:39)
[2017-05-28] MEDS: SENNOSIDES 8.6MG TABLET (FP) PO SCH (09:39)
[2017-05-28] MEDS: METOPROLOL TARTRATE 25 MG TABLET (FP) PO SCH ×2 (09:39→21:20)
[2017-05-28] MEDS: TIOTROPIUM BROMIDE 18 MCG/INH (DEVICE W/ 5 CAPSULES) IH SCH (09:40)
[2017-05-28] MEDS: FLUTICASONE PROP 0.05% 16 GM NASAL SPRAY NS SCH (09:40)
[2017-05-28] MEDS: BRIMONIDINE TARTRATE 0.15% OPHTHALMIC 5 ML BOTTLE OD SCH ×2 (10:46→21:36)
--- NOTE | 2017-05-28 11:39 | PN ---
Progress Note (short form) - Note Progress Note: No acute events overnight. NAD. No CP or SOB. Intake & Output 05/25/17 05/26/17 05/27/17 05/28/17 23:59 23:59 23:59 23:59 Intake Total 2850 2200 980 Output Total 700 1100 1000 300 Balance 2150 1100 -20 -300 Last Vital Signs Temp Pulse Resp BP Pulse Ox 97.0 F L 68 20 145/79 98 05/28/17 09:10 05/28/17 10:31 05/28/17 09:10 05/28/17 09:10 05/28/17 10:31 Active Medications Acetaminophen (Tylenol -) 650 mg PO Q6H PRN PRN Reason: FEVER OR PAIN Last Admin: 05/19/17 00:53 Dose: 650 mg Al Hydroxide/Mg Hydroxide (Mylanta Oral Suspension -) 30 ml PO Q6H PRN PRN Reason: INDIGESTION Last Admin: 05/13/17 13:00 Dose: 30 ml Albuterol/Ipratropium (Duoneb -) 1 amp NEB Q4H PRN PRN Reason: SHORTNESS OF BREATH Last Admin: 05/21/17 10:38 Dose: 1 amp Amino Acids (Prosource No Carb Liquid Pkt) 30 ml PO BID@0800,1730 [facility] Last Admin: 05/28/17 08:37 Dose: 30 ml Ascorbic Acid (Vitamin C -) 500 mg PO HS [facility] Last Admin: 05/27/17 21:28 Dose: 500 mg Atorvastatin Calcium (Lipitor -) 10 mg PO HS [facility] Last Admin: 05/27/17 21:28 Dose: 10 mg Brimonidine Tartrate (Alphagan 0.15% -) 1 drop OD BID [facility] Last Admin: 05/28/17 10:46 Dose: 1 drop Cholecalciferol (Vitamin D3 -) 1,000 unit PO DAILY [facility] Last Admin: 05/28/17 09:39 Dose: 1,000 unit Docusate Sodium (Colace -) 200 mg PO HS [facility] Last Admin: 05/27/17 21:37 Dose: 200 mg Duloxetine HCl (Cymbalta -) 60 mg PO HS [facility] Last Admin: 05/27/17 21:28 Dose: 60 mg Fluticasone Propionate (Flonase -) 2 spray NS DAILY [facility] Last Admin: 05/28/17 09:40 Dose: 1 sprays Gabapentin (Neurontin -) 600 mg PO BID [facility] Last Admin: 05/28/17 09:39 Dose: 600 mg Lactobacillus Acidophilus (Bacid -) 1 tab PO DAILY [facility] Last Admin: 05/28/17 09:39 Dose: 1 tab Levothyroxine Sodium (Synthroid -) 50 mcg PO DAILY@0700 [facility] Last Admin: 05/28/17 06:17 Dose: 50 mcg Metoprolol Tartrate (Lopressor -) 25 mg PO BID [facility] Last Admin: 05/28/17 09:39 Dose: 25 mg Prednisone (Deltasone -) 20 mg PO DAILY [facility] Last Admin: 05/28/17 09:39 Dose: 20 mg Ranitidine HCl (Zantac -) 150 mg PO BID [facility] Last Admin: 05/28/17 09:39 Dose: 150 mg Senna (Senna -) 2 tab PO DAILY [facility] Last Admin: 05/28/17 09:39 Dose: 2 tab Tiotropium [place] (Spiriva -) 1 puff IH DAILY [facility] Last Admin: 05/28/17 09:40 Dose: 1 puff Gen: NAD at rest Heart: RRR Lung: decreased breath sounds at the bases Abd: soft, nontender Ext: no edema Laboratory Results - last 24 hr 05/28/17 05/28/17 06:00 06:00 WBC 13.7 H RBC 3.02 L Hgb 9.9 L Hct 30.1 L MCV 99.6 H MCH 32.8 MCHC 32.9 RDW 18.7 H Plt Count 165 MPV 9.1 Neutrophils % 86.3 H Lymphocytes % 4.8 L Monocytes % 8.4 Eosinophils % 0.1 D Basophils % 0.4 D Sodium 139 Potassium 3.9 Chloride 99 Carbon Dioxide 33 H Anion Gap 7 L BUN 25 H Creatinine 0.4 L Random Glucose 85 Calcium 8.8 Phosphorus 2.8 Magnesium 2.0 A/P Pneumonia Atrial Fibrillation LV Diastolic Dysfunction CAD HTN Hyperlipidemia - Off ABX at present - Daily assessment for Lasix need - prednisone taper - inhaled bronchodilators - rate controlled - continue anticoagulation - D/C planning Dr Boo
--- NOTE | 2017-05-28 14:08 | PN ---
Progress Note, Physician Chief Complaint: Mr Rivas is confused on exam. - Current Medication List Current Medications: Active Medications Acetaminophen (Tylenol -) 650 mg PO Q6H PRN PRN Reason: FEVER OR PAIN Last Admin: 05/19/17 00:53 Dose: 650 mg Al Hydroxide/Mg Hydroxide (Mylanta Oral Suspension -) 30 ml PO Q6H PRN PRN Reason: INDIGESTION Last Admin: 05/13/17 13:00 Dose: 30 ml Albuterol/Ipratropium (Duoneb -) 1 amp NEB Q4H PRN PRN Reason: SHORTNESS OF BREATH Last Admin: 05/21/17 10:38 Dose: 1 amp Amino Acids (Prosource No Carb Liquid Pkt) 30 ml PO BID@0800,1730 [facility] Last Admin: 05/28/17 08:37 Dose: 30 ml Ascorbic Acid (Vitamin C -) 500 mg PO HS [facility] Last Admin: 05/27/17 21:28 Dose: 500 mg Atorvastatin Calcium (Lipitor -) 10 mg PO [facility] Last Admin: 05/27/17 21:28 Dose: 10 mg Brimonidine Tartrate (Alphagan 0.15% -) 1 drop OD BID [facility] Last Admin: 05/28/17 10:46 Dose: 1 drop Cholecalciferol (Vitamin D3 -) 1,000 unit PO DAILY [facility] Last Admin: 05/28/17 09:39 Dose: 1,000 unit Docusate Sodium (Colace -) 200 mg PO HS [facility] Last Admin: 05/27/17 21:37 Dose: 200 mg Duloxetine HCl (Cymbalta -) 60 mg PO HS [facility] Last Admin: 05/27/17 21:28 Dose: 60 mg Fluticasone Propionate (Flonase -) 2 spray NS DAILY [facility] Last Admin: 05/28/17 09:40 Dose: 1 sprays Gabapentin (Neurontin -) 600 mg PO BID [facility] Last Admin: 05/28/17 09:39 Dose: 600 mg Lactobacillus Acidophilus (Bacid -) 1 tab PO DAILY [facility] Last Admin: 05/28/17 09:39 Dose: 1 tab Levothyroxine Sodium (Synthroid -) 50 mcg PO DAILY@0700 [facility] Last Admin: 05/28/17 06:17 Dose: 50 mcg Metoprolol Tartrate (Lopressor -) 25 mg PO BID [facility] Last Admin: 05/28/17 09:39 Dose: 25 mg Prednisone (Deltasone -) 20 mg PO DAILY [facility] Last Admin: 05/28/17 09:39 Dose: 20 mg Ranitidine HCl (Zantac -) 150 mg PO BID [facility] Last Admin: 05/28/17 09:39 Dose: 150 mg Senna (Senna -) 2 tab PO DAILY [facility] Last Admin: 05/28/17 09:39 Dose: 2 tab Tiotropium [place] (Spiriva -) 1 puff IH DAILY [facility] Last Admin: 05/28/17 09:40 Dose: 1 puff - Objective Vital Signs: Vital Signs Temperature 36.5 C 05/28/17 12:14 Pulse Rate 66 05/28/17 12:14 Respiratory Rate 20 05/28/17 12:14 Blood Pressure 133/64 05/28/17 12:14 O2 Sat by Pulse Oximetry (%) 97 05/28/17 12:10 Constitutional: Yes: No Distress, Calm Cardiovascular: Yes: Regular Rate and Rhythm. No: Gallop, Murmur, Rub Respiratory: Yes: Regular, CTA Bilaterally. No: Rales, Rhonchi, Wheezes Gastrointestinal: Yes: Normal Bowel Sounds, Soft. No: Distention, Tenderness Extremities: Yes: WNL Edema: No Labs: CBC, BMP 05/28/17 06:00 05/28/17 06:00 Problem List - Problems (1) Pneumonia Code(s): J18.9 - PNEUMONIA, UNSPECIFIED ORGANISM Qualifiers: Laterality: right Lung location: lower lobe of lung (2) Alkalosis, metabolic Code(s): E87.3 - ALKALOSIS (3) Atrial fibrillation Code(s): I48.91 - UNSPECIFIED ATRIAL FIBRILLATION Qualifiers: Atrial fibrillation type: chronic Qualified Code(s): I48.2 - Chronic atrial fibrillation (4) CHF (congestive heart failure) Code(s): I50.9 - HEART FAILURE, UNSPECIFIED Qualifiers: Congestive heart failure type: unspecified congestive heart failure type Congestive heart failure chronicity: chronic Qualified Code(s): I50.9 - Heart failure, unspecified (5) GERD (gastroesophageal reflux disease) Code(s): K21.9 - GASTRO-ESOPHAGEAL REFLUX DISEASE WITHOUT ESOPHAGITIS (6) HTN (hypertension) Code(s): I10 - ESSENTIAL (PRIMARY) HYPERTENSION (7) Hyperlipemia Code(s): E78.5 - HYPERLIPIDEMIA, UNSPECIFIED (8) Hypothyroidism Code(s): E03.9 - HYPOTHYROIDISM, UNSPECIFIED (9) PVD (peripheral vascular disease) Code(s): I73.9 - PERIPHERAL VASCULAR DISEASE, UNSPECIFIED (10) Acute respiratory failure Code(s): J96.00 - ACUTE RESPIRATORY FAILURE, UNSP W HYPOXIA OR HYPERCAPNIA Qualifiers: Respiratory failure complication: hypoxia and hypercapnia Qualified Code(s): J96.01 - Acute respiratory failure with hypoxia (11) Acute respiratory acidosis Code(s): E87.2 - ACIDOSIS (12) Hematuria Code(s): R31.9 - HEMATURIA, UNSPECIFIED Assessment/Plan (1) Community acquired pneumonia Assessment/Plan: -finished course of merrem -repeat chest x-ray (2) Respiratory acidosis Assessment/Plan: -resolved -no longer needing bipap -pulmonary following Code(s): (3) Atrial fibrillation Assessment/Plan: -rate controlled -continue metoprolol -d/rigo anticoagulants secondary to hematuria requiring transfusion Code(s): I48.91 - UNSPECIFIED ATRIAL FIBRILLATION Qualifiers: Atrial fibrillation type: chronic Qualified Code(s): I48.2 - Chronic atrial fibrillation (4) CHF (congestive heart failure) Assessment/Plan: -ECHO reviewed and cardiology following -not in exacerbation Code(s): I50.9 - HEART FAILURE, UNSPECIFIED Qualifiers: Congestive heart failure type: unspecified congestive heart failure type Congestive heart failure chronicity: chronic Qualified Code(s): I50.9 - Heart failure, unspecified (5) GERD (gastroesophageal reflux disease) Assessment/Plan: -continue zantac Code(s): K21.9 - GASTRO-ESOPHAGEAL REFLUX DISEASE WITHOUT ESOPHAGITIS (6) HTN (hypertension) Assessment/Plan: -controlled Code(s): I10 - ESSENTIAL (PRIMARY) HYPERTENSION (7) Hyperlipemia Assessment/Plan: -continue lipitor -hold fenofibrate secondary to inability to crush Code(s): E78.5 - HYPERLIPIDEMIA, UNSPECIFIED (8) Hypothyroidism Assessment/Plan: -continue synthroid Code(s): E03.9 - HYPOTHYROIDISM, UNSPECIFIED (9) PVD (peripheral vascular disease) Assessment/Plan: -holding lovenox -does not complain of claudication Code(s): I73.9 - PERIPHERAL VASCULAR DISEASE, UNSPECIFIED (10) Urinary retention -hematuria resolved -requested urology follow up concerning nelson and evaluation of hematuria (11) Metabolic encephalopathy -worsened today -obtain chest x-ray -monitor for signs of sepsis -? , monitor if awake at night (12) Acute respiratory failure -resolved -pulmonary following (13) Uremia -back to baseline (14) Anemia -transfused with good response -monitor (15) Thrombocytopenia -resolved -secondary to sepsis -HIT antibodies negative (16) Hematuria -urology requested to follow up -currently resolved after holding anticoagulants
--- NOTE | 2017-05-28 16:27 | PN ---
Progress Note, Physician History of Present Illness: patient confused comfortable wbc is increasing - Current Medication List Current Medications: Active Medications Acetaminophen (Tylenol -) 650 mg PO Q6H PRN PRN Reason: FEVER OR PAIN Last Admin: 05/19/17 00:53 Dose: 650 mg Al Hydroxide/Mg Hydroxide (Mylanta Oral Suspension -) 30 ml PO Q6H PRN PRN Reason: INDIGESTION Last Admin: 05/13/17 13:00 Dose: 30 ml Albuterol/Ipratropium (Duoneb -) 1 amp NEB Q4H PRN PRN Reason: SHORTNESS OF BREATH Last Admin: 05/21/17 10:38 Dose: 1 amp Amino Acids (Prosource No Carb Liquid Pkt) 30 ml PO BID@0800,1730 [facility] Last Admin: 05/28/17 08:37 Dose: 30 ml Ascorbic Acid (Vitamin C -) 500 mg PO HS [facility] Last Admin: 05/27/17 21:28 Dose: 500 mg Atorvastatin Calcium (Lipitor -) 10 mg PO [facility] Last Admin: 05/27/17 21:28 Dose: 10 mg Brimonidine Tartrate (Alphagan 0.15% -) 1 drop OD BID [facility] Last Admin: 05/28/17 10:46 Dose: 1 drop Cholecalciferol (Vitamin D3 -) 1,000 unit PO DAILY [facility] Last Admin: 05/28/17 09:39 Dose: 1,000 unit Docusate Sodium (Colace -) 200 mg PO HS [facility] Last Admin: 05/27/17 21:37 Dose: 200 mg Duloxetine HCl (Cymbalta -) 60 mg PO [facility] Last Admin: 05/27/17 21:28 Dose: 60 mg Fluticasone Propionate (Flonase -) 2 spray NS DAILY [facility] Last Admin: 05/28/17 09:40 Dose: 1 sprays Gabapentin (Neurontin -) 600 mg PO BID [facility] Last Admin: 05/28/17 09:39 Dose: 600 mg Lactobacillus Acidophilus (Bacid -) 1 tab PO DAILY [facility] Last Admin: 05/28/17 09:39 Dose: 1 tab Levothyroxine Sodium (Synthroid -) 50 mcg PO DAILY@0700 [facility] Last Admin: 05/28/17 06:17 Dose: 50 mcg Metoprolol Tartrate (Lopressor -) 25 mg PO BID [facility] Last Admin: 05/28/17 09:39 Dose: 25 mg Prednisone (Deltasone -) 20 mg PO DAILY [facility] Last Admin: 05/28/17 09:39 Dose: 20 mg Ranitidine HCl (Zantac -) 150 mg PO BID [facility] Last Admin: 05/28/17 09:39 Dose: 150 mg Senna (Senna -) 2 tab PO DAILY [facility] Last Admin: 05/28/17 09:39 Dose: 2 tab Tiotropium [place] (Spiriva -) 1 puff IH DAILY [facility] Last Admin: 05/28/17 09:40 Dose: 1 puff - Objective Vital Signs: Vital Signs Temperature 98.6 F 05/28/17 14:40 Pulse Rate 71 05/28/17 14:40 Respiratory Rate 16 05/28/17 14:40 Blood Pressure 165/75 05/28/17 14:40 O2 Sat by Pulse Oximetry (%) 97 05/28/17 12:10 Constitutional: Yes: No Distress, Calm Cardiovascular: Yes: Regular Rate and Rhythm Respiratory: Yes: Poor Air Entry, Rhonchi Gastrointestinal: Yes: Normal Bowel Sounds, Soft Musculoskeletal: Yes: WNL Extremities: Yes: WNL Neurological: Yes: Confusion Psychiatric: Yes: Alert Labs: CBC, BMP 05/28/17 06:00 05/28/17 06:00 Assessment/Plan Problem List - Problems (1) Pneumonia Code(s): J18.9 - PNEUMONIA, UNSPECIFIED ORGANISM Qualifiers: Laterality: right Lung location: lower lobe of lung (2) Alkalosis, metabolic Code(s): E87.3 - ALKALOSIS (3) Atrial fibrillation Code(s): I48.91 - UNSPECIFIED ATRIAL FIBRILLATION Qualifiers: Atrial fibrillation type: chronic Qualified Code(s): I48.2 - Chronic atrial fibrillation (4) CHF (congestive heart failure) Code(s): I50.9 - HEART FAILURE, UNSPECIFIED Qualifiers: Congestive heart failure type: unspecified congestive heart failure type Congestive heart failure chronicity: chronic Qualified Code(s): I50.9 - Heart failure, unspecified (5) GERD (gastroesophageal reflux disease) Code(s): K21.9 - GASTRO-ESOPHAGEAL REFLUX DISEASE WITHOUT ESOPHAGITIS (6) HTN (hypertension) Code(s): I10 - ESSENTIAL (PRIMARY) HYPERTENSION (7) Hyperlipemia Code(s): E78.5 - HYPERLIPIDEMIA, UNSPECIFIED (8) Hypothyroidism Code(s): E03.9 - HYPOTHYROIDISM, UNSPECIFIED (9) PVD (peripheral vascular disease) Code(s): I73.9 - PERIPHERAL VASCULAR DISEASE, UNSPECIFIED Assessment/Plan (1) Community acquired pneumonia (2) Alkalosis, metabolic Code(s): E87.3 - ALKALOSIS (3) Atrial fibrillation Code(s): I48.91 - UNSPECIFIED ATRIAL FIBRILLATION Qualifiers: Atrial fibrillation type: chronic Qualified Code(s): I48.2 - Chronic atrial fibrillation (4) CHF (congestive heart failure) Code(s): I50.9 - HEART FAILURE, UNSPECIFIED Qualifiers: Congestive heart failure type: unspecified congestive heart failure type Congestive heart failure chronicity: chronic Qualified Code(s): I50.9 - Heart failure, unspecified (5) GERD (gastroesophageal reflux disease) Code(s): K21.9 - GASTRO-ESOPHAGEAL REFLUX DISEASE WITHOUT ESOPHAGITIS (6) HTN (hypertension) Code(s): I10 - ESSENTIAL (PRIMARY) HYPERTENSION (7) Hyperlipemia Code(s): E78.5 - HYPERLIPIDEMIA, UNSPECIFIED (8) Hypothyroidism Code(s): E03.9 - HYPOTHYROIDISM, UNSPECIFIED (9) PVD (peripheral vascular disease) Code(s): I73.9 - PERIPHERAL VASCULAR DISEASE, UNSPECIFIED wbc has started to climb plan continue monitoring rest as per primary team await for official xray chest cause of confusion
[2017-05-28] MEDS: ATORVASTATIN CA 10 MG TABLET (FP) PO SCH (21:34)
[2017-05-28] MEDS: DULoxetine HCL 30 MG CAPSULE.DR (FP) PO SCH (21:34)
[2017-05-28] MEDS: ASCORBIC ACID 500 MG TABLET (FP) PO SCH (21:34)
[2017-05-28] MEDS: DOCUSATE SODIUM 100 MG CAPSULE (FP) PO SCH (21:35)
[2017-05-29] MEDS: LEVOTHYROXINE NA 50 MCG TABLET (FP) PO SCH (06:15)
[2017-05-29 07:37] LABS: BASOPHIL 0.6 % (0-2.0); EOSINOPHIL 0.3 % (0-4.5); MCH 32.9 pg (25.7-33.7); MCHC 32.8 g/dl (32.0-35.9); MEAN CELL VOLUME 100.3 fl (80-96); MEAN PLT VOLUME 9.3 fl (7.5-11.1); PLATELET COUNT 140 K/MM3 (134-434); RDW 18.7 % (11.9-15.9)
[2017-05-29 08:06] LABS: ANION GAP 6 (8-16); CALCIUM 8.6 mg/dL (8.5-10.1); CO2 36 mmol/L (21-32); CREATININE 0.5 mg/dL (0.7-1.3); GLUCOSE,RANDOM 79 mg/dL (74-106); MAGNESIUM 2.1 mg/dL (1.8-2.4)
[2017-05-29] MEDS ORDERED: PT OWN MED DRAWER 7, Y5N ONE (10:22)
[2017-05-29] MEDS: AMINO ACIDS/PROTEIN HYDROLYS 30 ML LIQUID.PKT PO SCH ×2 (10:29→18:28)
[2017-05-29] MEDS: METOPROLOL TARTRATE 25 MG TABLET (FP) PO SCH ×2 (10:30→21:30)
[2017-05-29] MEDS: LACTOBACILLUS ACIDOPHILUS 1 EACH TAB (FP) PO SCH (10:30)
[2017-05-29] MEDS: GABAPENTIN 300 MG CAPSULE (FP) PO SCH ×2 (10:30→21:31)
[2017-05-29] MEDS: SENNOSIDES 8.6MG TABLET (FP) PO SCH (10:30)
[2017-05-29] MEDS: CHOLECALCIFEROL (VITAMIN D3) 1,000 UNIT TABLET (FP) PO SCH (10:30)
[2017-05-29] MEDS: RANITIDINE HCL 150 MG TABLET (FP) PO SCH ×2 (10:30→21:31)
[2017-05-29] MEDS: predniSONE 20 MG TABLET (UD) PO SCH (10:31)
[2017-05-29] MEDS: TIOTROPIUM BROMIDE 18 MCG/INH (DEVICE W/ 5 CAPSULES) IH SCH (10:31)
[2017-05-29] MEDS: BRIMONIDINE TARTRATE 0.15% OPHTHALMIC 5 ML BOTTLE OD SCH ×2 (10:31→21:37)
[2017-05-29] MEDS: FLUTICASONE PROP 0.05% 16 GM NASAL SPRAY NS SCH (10:31)
--- NOTE | 2017-05-29 11:37 | PN ---
Progress Note, Physician Chief Complaint: Mr Rivas says he is feeling well today. Denies cp, sob, n/v. AxO to person and place, not oriented to time but much improved from yesterday. - Current Medication List Current Medications: Active Medications Acetaminophen (Tylenol -) 650 mg PO Q6H PRN PRN Reason: FEVER OR PAIN Last Admin: 05/19/17 00:53 Dose: 650 mg Al Hydroxide/Mg Hydroxide (Mylanta Oral Suspension -) 30 ml PO Q6H PRN PRN Reason: INDIGESTION Last Admin: 05/13/17 13:00 Dose: 30 ml Albuterol/Ipratropium (Duoneb -) 1 amp NEB Q4H PRN PRN Reason: SHORTNESS OF BREATH Last Admin: 05/21/17 10:38 Dose: 1 amp Amino Acids (Prosource No Carb Liquid Pkt) 30 ml PO BID@0800,1730 [facility] Last Admin: 05/29/17 10:29 Dose: 30 ml Ascorbic Acid (Vitamin C -) 500 mg PO HS [facility] Last Admin: 05/28/17 21:34 Dose: 500 mg Atorvastatin Calcium (Lipitor -) 10 mg PO HS [facility] Last Admin: 05/28/17 21:34 Dose: 10 mg Brimonidine Tartrate (Alphagan 0.15% -) 1 drop OD BID [facility] Last Admin: 05/29/17 10:31 Dose: 1 drop Cholecalciferol (Vitamin D3 -) 1,000 unit PO DAILY [facility] Last Admin: 05/29/17 10:30 Dose: 1,000 unit Docusate Sodium (Colace -) 200 mg PO HS [facility] Last Admin: 05/28/17 21:35 Dose: Not Given Duloxetine HCl (Cymbalta -) 60 mg PO HS [facility] Last Admin: 05/28/17 21:34 Dose: 60 mg Fluticasone Propionate (Flonase -) 2 spray NS DAILY [facility] Last Admin: 05/29/17 10:31 Dose: 2 sprays Gabapentin (Neurontin -) 600 mg PO BID [facility] Last Admin: 05/29/17 10:30 Dose: 600 mg Lactobacillus Acidophilus (Bacid -) 1 tab PO DAILY [facility] Last Admin: 05/29/17 10:30 Dose: 1 tab Levothyroxine Sodium (Synthroid -) 50 mcg PO DAILY@0700 [facility] Last Admin: 05/29/17 06:15 Dose: 50 mcg Metoprolol Tartrate (Lopressor -) 25 mg PO BID [facility] Last Admin: 05/29/17 10:30 Dose: 25 mg Prednisone (Deltasone -) 20 mg PO DAILY [facility] Last Admin: 05/29/17 10:31 Dose: 20 mg Ranitidine HCl (Zantac -) 150 mg PO BID [facility] Last Admin: 05/29/17 10:30 Dose: 150 mg Senna (Senna -) 2 tab PO DAILY [facility] Last Admin: 05/29/17 10:30 Dose: 2 tab Tiotropium [place] (Spiriva -) 1 puff IH DAILY [facility] Last Admin: 05/29/17 10:31 Dose: 1 puff - Objective Vital Signs: Vital Signs Temperature 37.1 C 05/29/17 05:57 Pulse Rate 74 05/29/17 05:57 Respiratory Rate 20 05/29/17 05:57 Blood Pressure 133/86 05/29/17 05:57 O2 Sat by Pulse Oximetry (%) 100 05/28/17 21:00 Constitutional: Yes: Well Nourished, No Distress, Calm Cardiovascular: Yes: Regular Rate and Rhythm. No: Gallop, Murmur, Rub Respiratory: Yes: Regular, CTA Bilaterally. No: Rales, Rhonchi, Wheezes Gastrointestinal: Yes: Normal Bowel Sounds, Soft. No: Distention, Tenderness Extremities: Yes: WNL Edema: No Labs: CBC, BMP 05/29/17 06:00 05/29/17 06:00 Problem List - Problems (1) Pneumonia Code(s): J18.9 - PNEUMONIA, UNSPECIFIED ORGANISM Qualifiers: Laterality: right Lung location: lower lobe of lung (2) Alkalosis, metabolic Code(s): E87.3 - ALKALOSIS (3) Atrial fibrillation Code(s): I48.91 - UNSPECIFIED ATRIAL FIBRILLATION Qualifiers: Atrial fibrillation type: chronic Qualified Code(s): I48.2 - Chronic atrial fibrillation (4) CHF (congestive heart failure) Code(s): I50.9 - HEART FAILURE, UNSPECIFIED Qualifiers: Congestive heart failure type: unspecified congestive heart failure type Congestive heart failure chronicity: chronic Qualified Code(s): I50.9 - Heart failure, unspecified (5) GERD (gastroesophageal reflux disease) Code(s): K21.9 - GASTRO-ESOPHAGEAL REFLUX DISEASE WITHOUT ESOPHAGITIS (6) HTN (hypertension) Code(s): I10 - ESSENTIAL (PRIMARY) HYPERTENSION (7) Hyperlipemia Code(s): E78.5 - HYPERLIPIDEMIA, UNSPECIFIED (8) Hypothyroidism Code(s): E03.9 - HYPOTHYROIDISM, UNSPECIFIED (9) PVD (peripheral vascular disease) Code(s): I73.9 - PERIPHERAL VASCULAR DISEASE, UNSPECIFIED (10) Acute respiratory failure Code(s): J96.00 - ACUTE RESPIRATORY FAILURE, UNSP W HYPOXIA OR HYPERCAPNIA Qualifiers: Respiratory failure complication: hypoxia and hypercapnia Qualified Code(s): J96.01 - Acute respiratory failure with hypoxia (11) Acute respiratory acidosis Code(s): E87.2 - ACIDOSIS (12) Hematuria Code(s): R31.9 - HEMATURIA, UNSPECIFIED Assessment/Plan (1) Community acquired pneumonia Assessment/Plan: -finished course of merrem -chest x-ray repeated and no sign of recurrent pneumonia (2) Respiratory acidosis Assessment/Plan: -if confusion occurs again, will check ABG -may need bipap at night -? sleep apnea Code(s): (3) Atrial fibrillation Assessment/Plan: -rate controlled -continue metoprolol -d/rigo anticoagulants secondary to hematuria requiring transfusion Code(s): I48.91 - UNSPECIFIED ATRIAL FIBRILLATION Qualifiers: Atrial fibrillation type: chronic Qualified Code(s): I48.2 - Chronic atrial fibrillation (4) CHF (congestive heart failure) Assessment/Plan: -ECHO reviewed and cardiology following -not in exacerbation Code(s): I50.9 - HEART FAILURE, UNSPECIFIED Qualifiers: Congestive heart failure type: unspecified congestive heart failure type Congestive heart failure chronicity: chronic Qualified Code(s): I50.9 - Heart failure, unspecified (5) GERD (gastroesophageal reflux disease) Assessment/Plan: -continue zantac Code(s): K21.9 - GASTRO-ESOPHAGEAL REFLUX DISEASE WITHOUT ESOPHAGITIS (6) HTN (hypertension) Assessment/Plan: -controlled Code(s): I10 - ESSENTIAL (PRIMARY) HYPERTENSION (7) Hyperlipemia Assessment/Plan: -continue lipitor -hold fenofibrate secondary to inability to crush Code(s): E78.5 - HYPERLIPIDEMIA, UNSPECIFIED (8) Hypothyroidism Assessment/Plan: -continue synthroid Code(s): E03.9 - HYPOTHYROIDISM, UNSPECIFIED (9) PVD (peripheral vascular disease) Assessment/Plan: -holding lovenox -does not complain of claudication Code(s): I73.9 - PERIPHERAL VASCULAR DISEASE, UNSPECIFIED (10) Urinary retention -hematuria resolved -requested urology follow up concerning nelson and evaluation of hematuria (11) Metabolic encephalopathy -improved today -RN states slept well through the night -does not appear to have infection -? CO2 retention causing AMS -ABG if confusion occurs again (12) Acute respiratory failure -resolved -pulmonary following (13) Uremia -back to baseline (14) Anemia -transfused with good response -monitor (15) Thrombocytopenia -resolved -secondary to sepsis -HIT antibodies negative (16) Hematuria -urology requested to follow up -currently resolved after holding anticoagulants
--- NOTE | 2017-05-29 11:54 | PN ---
Progress Note (short form) - Note Progress Note: PULMONARY AWAKE/KNOWS NAME/PLACE/MONTH VSS/ANICTERIC/PALE DIMINISHED BREATH SOUNDS S1S2 IRREGULAR BS+ NO EDEMA LABS/MEDS/NOTES/IMAGING REVIEWED A/P Pneumonia Atrial Fibrillation LV Diastolic Dysfunction CAD HTN Hyperlipidemia - check abg - steroids to be tapered - inhaled bronchodilators - rate controlled Coleen STOKES MD
--- NOTE | 2017-05-29 13:16 | PN ---
Progress Note, PHARMACY AIDE - Note Progress Note: Selected Entries 05/28/17 05/28/17 05/28/17 06:05 09:10 11:33 Breakfast 75% Lunch Supper Temperature 97.7 F 97.0 F L 05/28/17 05/28/17 05/28/17 12:14 14:40 18:00 Breakfast Lunch 75% Supper 0 Temperature 97.7 F 98.6 F 97.9 F 05/28/17 05/29/17 05/29/17 20:00 02:00 05:57 Breakfast Lunch Supper Temperature 97.7 F 96.8 F L 98.7 F 05/29/17 12:19 Breakfast 75% Lunch Supper Temperature Pt is tolerating diet, fed by his . She is aware of sw compensatory strategies and follows them well. Encourage supplements for increased density of nutritional intake.
--- NOTE | 2017-05-29 14:13 | PN ---
Progress Note, Physician History of Present Illness: patient doing much better much more awake and alert - Current Medication List Current Medications: Active Medications Acetaminophen (Tylenol -) 650 mg PO Q6H PRN PRN Reason: FEVER OR PAIN Last Admin: 05/19/17 00:53 Dose: 650 mg Al Hydroxide/Mg Hydroxide (Mylanta Oral Suspension -) 30 ml PO Q6H PRN PRN Reason: INDIGESTION Last Admin: 05/13/17 13:00 Dose: 30 ml Albuterol/Ipratropium (Duoneb -) 1 amp NEB Q4H PRN PRN Reason: SHORTNESS OF BREATH Last Admin: 05/21/17 10:38 Dose: 1 amp Amino Acids (Prosource No Carb Liquid Pkt) 30 ml PO BID@0800,1730 [facility] Last Admin: 05/29/17 10:29 Dose: 30 ml Ascorbic Acid (Vitamin C -) 500 mg PO HS [facility] Last Admin: 05/28/17 21:34 Dose: 500 mg Atorvastatin Calcium (Lipitor -) 10 mg PO [facility] Last Admin: 05/28/17 21:34 Dose: 10 mg Brimonidine Tartrate (Alphagan 0.15% -) 1 drop OD BID [facility] Last Admin: 05/29/17 10:31 Dose: 1 drop Cholecalciferol (Vitamin D3 -) 1,000 unit PO DAILY [facility] Last Admin: 05/29/17 10:30 Dose: 1,000 unit Docusate Sodium (Colace -) 200 mg PO HS [facility] Last Admin: 05/28/17 21:35 Dose: Not Given Duloxetine HCl (Cymbalta -) 60 mg PO [facility] Last Admin: 05/28/17 21:34 Dose: 60 mg Fluticasone Propionate (Flonase -) 2 spray NS DAILY [facility] Last Admin: 05/29/17 10:31 Dose: 2 sprays Gabapentin (Neurontin -) 600 mg PO BID [facility] Last Admin: 05/29/17 10:30 Dose: 600 mg Lactobacillus Acidophilus (Bacid -) 1 tab PO DAILY [facility] Last Admin: 05/29/17 10:30 Dose: 1 tab Levothyroxine Sodium (Synthroid -) 50 mcg PO DAILY@0700 [facility] Last Admin: 05/29/17 06:15 Dose: 50 mcg Metoprolol Tartrate (Lopressor -) 25 mg PO BID [facility] Last Admin: 05/29/17 10:30 Dose: 25 mg Prednisone (Deltasone -) 15 mg PO DAILY [facility] Ranitidine HCl (Zantac -) 150 mg PO BID [facility] Last Admin: 05/29/17 10:30 Dose: 150 mg Senna (Senna -) 2 tab PO DAILY [facility] Last Admin: 05/29/17 10:30 Dose: 2 tab Tiotropium [place] (Spiriva -) 1 puff IH DAILY [facility] Last Admin: 05/29/17 10:31 Dose: 1 puff - Objective Vital Signs: Vital Signs Temperature 97.9 F 05/29/17 10:00 Pulse Rate 77 05/29/17 10:00 Respiratory Rate 20 05/29/17 10:00 Blood Pressure 139/52 05/29/17 10:00 O2 Sat by Pulse Oximetry (%) 95 05/29/17 09:00 Constitutional: Yes: No Distress, Calm Cardiovascular: Yes: Regular Rate and Rhythm Respiratory: Yes: Regular, CTA Bilaterally Gastrointestinal: Yes: Normal Bowel Sounds, Soft Musculoskeletal: Yes: WNL Extremities: Yes: WNL Neurological: Yes: Alert, Oriented Psychiatric: Yes: Alert, Oriented Labs: CBC, BMP 05/29/17 06:00 05/29/17 06:00 Assessment/Plan Problem List - Problems (1) Pneumonia Code(s): J18.9 - PNEUMONIA, UNSPECIFIED ORGANISM Qualifiers: Laterality: right Lung location: lower lobe of lung (2) Alkalosis, metabolic Code(s): E87.3 - ALKALOSIS (3) Atrial fibrillation Code(s): I48.91 - UNSPECIFIED ATRIAL FIBRILLATION Qualifiers: Atrial fibrillation type: chronic Qualified Code(s): I48.2 - Chronic atrial fibrillation (4) CHF (congestive heart failure) Code(s): I50.9 - HEART FAILURE, UNSPECIFIED Qualifiers: Congestive heart failure type: unspecified congestive heart failure type Congestive heart failure chronicity: chronic Qualified Code(s): I50.9 - Heart failure, unspecified (5) GERD (gastroesophageal reflux disease) Code(s): K21.9 - GASTRO-ESOPHAGEAL REFLUX DISEASE WITHOUT ESOPHAGITIS (6) HTN (hypertension) Code(s): I10 - ESSENTIAL (PRIMARY) HYPERTENSION (7) Hyperlipemia Code(s): E78.5 - HYPERLIPIDEMIA, UNSPECIFIED (8) Hypothyroidism Code(s): E03.9 - HYPOTHYROIDISM, UNSPECIFIED (9) PVD (peripheral vascular disease) Code(s): I73.9 - PERIPHERAL VASCULAR DISEASE, UNSPECIFIED Assessment/Plan (1) Community acquired pneumonia (2) Alkalosis, metabolic Code(s): E87.3 - ALKALOSIS (3) Atrial fibrillation Code(s): I48.91 - UNSPECIFIED ATRIAL FIBRILLATION Qualifiers: Atrial fibrillation type: chronic Qualified Code(s): I48.2 - Chronic atrial fibrillation (4) CHF (congestive heart failure) Code(s): I50.9 - HEART FAILURE, UNSPECIFIED Qualifiers: Congestive heart failure type: unspecified congestive heart failure type Congestive heart failure chronicity: chronic Qualified Code(s): I50.9 - Heart failure, unspecified (5) GERD (gastroesophageal reflux disease) Code(s): K21.9 - GASTRO-ESOPHAGEAL REFLUX DISEASE WITHOUT ESOPHAGITIS (6) HTN (hypertension) Code(s): I10 - ESSENTIAL (PRIMARY) HYPERTENSION (7) Hyperlipemia Code(s): E78.5 - HYPERLIPIDEMIA, UNSPECIFIED (8) Hypothyroidism Code(s): E03.9 - HYPOTHYROIDISM, UNSPECIFIED (9) PVD (peripheral vascular disease) Code(s): I73.9 - PERIPHERAL VASCULAR DISEASE, UNSPECIFIED wbc trending down patinet is awake and alert today plan continue monitoring incentive kimberly i think patient should be out of bed and with physio
--- NOTE | 2017-05-29 14:18 | PN ---
Progress Note (short form) - Note Progress Note: patient with resolved hematuria. He reports that he was able to void prior to this hospitalization. trial of void tomorrow (05/30/17) Need CT urogram (ordered)
[2017-05-29 17:58] LABS: ARTERIAL BLD GAS O2 SATURATION 71.2 % (90-98.9); ARTERIAL BLOOD GAS HCO3 35.1 meq/L (22-26); ARTERIAL BLOOD GAS pH 7.34 (7.35-7.45)
[2017-05-29 18:04] LABS: ALLENS TEST POSITIVE; ART PUNCT SITE LEFT RADIAL; ARTERIAL BLOOD GAS PO2 42.2 mmHg (68-100); LPM/O2% 3LPM; PT. ON O2? YES; TYPE OF O2 NASAL
[2017-05-29] MEDS: ASCORBIC ACID 500 MG TABLET (FP) PO SCH (21:29)
[2017-05-29] MEDS: DULoxetine HCL 30 MG CAPSULE.DR (FP) PO SCH (21:30)
[2017-05-29] MEDS: DOCUSATE SODIUM 100 MG CAPSULE (FP) PO SCH (21:31)
[2017-05-29] MEDS: ATORVASTATIN CA 10 MG TABLET (FP) PO SCH (21:31)
[2017-05-30] MEDS: LEVOTHYROXINE NA 50 MCG TABLET (FP) PO SCH (06:04)
[2017-05-30 07:49] LABS: BASOPHIL 0.5 % (0-2.0); EOSINOPHIL 0.1 % (0-4.5); MCH 33.1 pg (25.7-33.7); MCHC 32.9 g/dl (32.0-35.9); MEAN CELL VOLUME 100.5 fl (80-96); MEAN PLT VOLUME 9.6 fl (7.5-11.1); NEUTROPHILS 88.7 % (42.8-82.8); PLATELET COUNT 119 K/MM3 (134-434); RDW 18.2 % (11.9-15.9); WHITE BLOOD COUNT 11.4 K/mm3 (4.0-10.0)
[2017-05-30 08:14] LABS: ANION GAP 6 (8-16); CALCIUM 8.4 mg/dL (8.5-10.1); CO2 36 mmol/L (21-32); CREATININE 0.4 mg/dL (0.7-1.3); GLUCOSE,RANDOM 72 mg/dL (74-106); MAGNESIUM 2.1 mg/dL (1.8-2.4); PHOSPHOROUS 3.9 mg/dL (2.5-4.9)
--- NOTE | 2017-05-30 08:55 | PN ---
Progress Note (short form) - Note Progress Note: Resting in NAD. No acute events overnight. No CP or SOB. Intake & Output 05/27/17 05/28/17 05/29/17 05/30/17 23:59 23:59 23:59 23:59 Intake Total 980 600 Output Total 1000 1100 1650 200 Balance -20 -1100 -1050 -200 Last Vital Signs Temp Pulse Resp BP Pulse Ox 97.8 F 75 18 140/82 100 05/30/17 05:51 05/30/17 05:51 05/30/17 05:51 05/30/17 05:51 05/29/17 22:19 Active Medications Acetaminophen (Tylenol -) 650 mg PO Q6H PRN PRN Reason: FEVER OR PAIN Last Admin: 05/19/17 00:53 Dose: 650 mg Al Hydroxide/Mg Hydroxide (Mylanta Oral Suspension -) 30 ml PO Q6H PRN PRN Reason: INDIGESTION Last Admin: 05/13/17 13:00 Dose: 30 ml Albuterol/Ipratropium (Duoneb -) 1 amp NEB Q4H PRN PRN Reason: SHORTNESS OF BREATH Last Admin: 05/21/17 10:38 Dose: 1 amp Amino Acids (Prosource No Carb Liquid Pkt) 30 ml PO BID@0800,1730 [facility] Last Admin: 05/29/17 18:28 Dose: 30 ml Ascorbic Acid (Vitamin C -) 500 mg PO HS [facility] Last Admin: 05/29/17 21:29 Dose: 500 mg Atorvastatin Calcium (Lipitor -) 10 mg PO HS [facility] Last Admin: 05/29/17 21:31 Dose: 10 mg Brimonidine Tartrate (Alphagan 0.15% -) 1 drop OD BID [facility] Last Admin: 05/29/17 21:37 Dose: 1 drop Cholecalciferol (Vitamin D3 -) 1,000 unit PO DAILY [facility] Last Admin: 05/29/17 10:30 Dose: 1,000 unit Docusate Sodium (Colace -) 200 mg PO HS [facility] Last Admin: 05/29/17 21:31 Dose: 200 mg Duloxetine HCl (Cymbalta -) 60 mg PO HS [facility] Last Admin: 05/29/17 21:30 Dose: 60 mg Fluticasone Propionate (Flonase -) 2 spray NS DAILY [facility] Last Admin: 05/29/17 10:31 Dose: 2 sprays Gabapentin (Neurontin -) 600 mg PO BID [facility] Last Admin: 05/29/17 21:31 Dose: 600 mg Lactobacillus Acidophilus (Bacid -) 1 tab PO DAILY [facility] Last Admin: 05/29/17 10:30 Dose: 1 tab Levothyroxine Sodium (Synthroid -) 50 mcg PO DAILY@0700 [facility] Last Admin: 05/30/17 06:04 Dose: 50 mcg Metoprolol Tartrate (Lopressor -) 25 mg PO BID [facility] Last Admin: 05/29/17 21:30 Dose: 25 mg Prednisone (Deltasone -) 15 mg PO DAILY [facility] Ranitidine HCl (Zantac -) 150 mg PO BID [facility] Last Admin: 05/29/17 21:31 Dose: 150 mg Senna (Senna -) 2 tab PO DAILY [facility] Last Admin: 05/29/17 10:30 Dose: 2 tab Tiotropium [place] (Spiriva -) 1 puff IH DAILY [facility] Last Admin: 05/29/17 10:31 Dose: 1 puff Gen: NAD at rest Heart: RRR Lung: decreased breath sounds at the bases Abd: soft, nontender Ext: no edema Laboratory Results - last 24 hr 05/29/17 05/30/17 05/30/17 17:55 06:30 06:30 WBC 11.4 H RBC 2.75 L Hgb 9.1 L Hct 27.7 L MCV 100.5 H MCH 33.1 MCHC 32.9 RDW 18.2 H Plt Count 119 L MPV 9.6 Neutrophils % 88.7 H Lymphocytes % 3.9 L Monocytes % 6.8 Eosinophils % 0.1 Basophils % 0.5 Puncture Site Left radial ABG pH 7.34 L ABG pCO2 at Pt Temp 66.5 H* ABG pO2 at Pt Temp 42.2 L* D ABG HCO3 35.1 H ABG O2 Sat (Measured) 71.2 L* ABG O2 Content 10.2 L ABG Base Excess 8.0 H Kenny Test Positive O2 Delivery Device Nasal Oxygen Flow Rate 3lpm PEEP 0.0 Sodium 142 Potassium 4.3 Chloride 100 Carbon Dioxide 36 H Anion Gap 6 L BUN 24 H Creatinine 0.4 L Random Glucose 72 L Calcium 8.4 L Phosphorus 3.9 Magnesium 2.1 A/P Pneumonia Atrial Fibrillation LV Diastolic Dysfunction CAD HTN Hyperlipidemia - Off ABX at present - prednisone taper - inhaled bronchodilators - Off AC due to hematuria Dr Boo
[2017-05-30] MEDS ORDERED: PT OWN MED DRAWER 7, Y5N ONE (10:32)
[2017-05-30] MEDS: TIOTROPIUM BROMIDE 18 MCG/INH (DEVICE W/ 5 CAPSULES) IH SCH (10:37)
[2017-05-30] MEDS: AMINO ACIDS/PROTEIN HYDROLYS 30 ML LIQUID.PKT PO SCH ×2 (10:37→18:29)
--- NOTE | 2017-05-30 10:37 | PN ---
Progress Note (short form) - Note Progress Note: s: no cp palps dizzy, sob better, eating better Current Medications Generic Name Dose Route Start Last Admin Trade Name Freq PRN Reason Stop Dose Admin Acetaminophen 650 mg 05/08/17 18:51 05/19/17 00:53 Tylenol - PO 650 mg Q6H PRN Administration FEVER OR PAIN Al Hydroxide/Mg Hydroxide 30 ml 05/13/17 12:50 05/13/17 13:00 Mylanta Oral Suspension - PO 30 ml Q6H PRN Administration INDIGESTION Albuterol/Ipratropium 1 amp 05/19/17 17:58 05/21/17 10:38 Duoneb - NEB 1 amp Q4H PRN Administration SHORTNESS OF BREATH Amino Acids 30 ml 05/22/17 17:30 05/29/17 18:28 Prosource No Carb Liquid Pkt PO 30 ml BID@0800,1730 [facility] Administration Ascorbic Acid 500 mg 05/08/17 22:00 05/29/17 21:29 Vitamin C - PO 500 mg HS [facility] Administration Atorvastatin Calcium 10 mg 05/08/17 22:00 05/29/17 21:31 Lipitor - PO 10 mg HS [facility] Administration Brimonidine Tartrate 1 drop 05/08/17 22:00 05/29/17 21:37 Alphagan 0.15% - OD 1 drop BID [facility] Administration Cholecalciferol 1,000 unit 05/09/17 10:00 05/29/17 10:30 Vitamin D3 - PO 1,000 unit DAILY [facility] Administration Docusate Sodium 200 mg 05/08/17 22:00 05/29/17 21:31 Colace - PO 200 mg HS [facility] Administration Duloxetine HCl 60 mg 05/08/17 22:00 05/29/17 21:30 Cymbalta - PO 60 mg HS [facility] Administration Fluticasone Propionate 2 spray 05/09/17 10:00 05/29/17 10:31 Flonase - NS 2 sprays DAILY [facility] Administration Furosemide 40 mg 05/30/17 10:00 Lasix - PO DAILY [facility] Gabapentin 600 mg 05/08/17 22:00 05/29/17 21:31 Neurontin - PO 600 mg BID [facility] Administration Lactobacillus Acidophilus 1 tab 05/10/17 11:00 05/29/17 10:30 Bacid - PO 1 tab DAILY [facility] Administration Levothyroxine Sodium 50 mcg 05/09/17 07:00 05/30/17 06:04 Synthroid - PO 50 mcg DAILY@0700 [facility] Administration Metoprolol Tartrate 25 mg 05/25/17 08:38 05/29/17 21:30 Lopressor - PO 25 mg BID [facility] Administration Prednisone 15 mg 05/30/17 10:00 Deltasone - PO DAILY [facility] Ranitidine HCl 150 mg 05/08/17 22:00 05/29/17 21:31 Zantac - PO 150 mg BID [facility] Administration Senna 2 tab 05/09/17 10:00 05/29/17 10:30 Senna - PO 2 tab DAILY [facility] Administration Tiotropium [place] 1 puff 05/09/17 13:00 05/29/17 10:31 Spiriva - IH 1 puff DAILY [facility] Administration Vital Signs Period Temp Pulse Resp BP Sys/Mitchell Pulse Ox Last 24 Hr 97.8 F-98.1 F 64-75 16-18 137-140/60-88 100-100 Constitutional: Yes: No Distress, Calm Cardiovascular: Yes: irregular Rate and Rhythm, S1, S2. No: Gallop, Murmur Respiratory: Yes:cta bl nl eff. No: Accessory Muscle Use Extremities: No: Cold Edema: No Neurological: Yes: alert today, conversational. No: Seizure Psychiatric: No: Agitated no jaundice diaphoresis Labs: CBC, BMP 05/30/17 06:30 05/30/17 06:30 echo 05/2017: mild, global LV hypo; nl RV; mild MR; mild ao root dilation (no RVSP) echo 10/2016: low nl lvef, nl lv size, nl rv, mild elena, mild mr/tr, rvsp 40-50 mibi 10/2016: no ischemia head ct 05/14: chronic rt cerebellar infarct, no acute pathology. a/p: 86 Y/O Gentleman with a PMhx that includes CKD, CAD s/p pci to rca 2004 ( patent on cath 2006), PVD s/p le bypass/stents/amputations, HTN, Afib on AC, here with sob, weakness found to have pna. fatigue, sob: -bnp high, but outpt lasix has not improved his sxs and here with no signs of vol overload so does not seem that chf causing his sxs. -imaging shows pna, mucus plugs, possibly aspirating, was on abx, steroids per ID/pulm-->symptomatically improving afib: - had been on pradaxa but was switched to lovenox while unable to take po. - 05/21 Now able to take po but with hematuria and hgb/platelets low so lovenox has been stopped for now. following - rate controlled, cont low dose bb cad s/p remote pci: -stable -no signs acs -cont AC, statin. has been off bb/acei due to low bp as outpt, but started BB here for AF chronic diastolic chf: -bnp 23K (baseline 8-10K) -05/13: has been on lasix 40 po daily, wts ranging 151-157 here, suspect JVD on exam though he is asymptomatic. cxr 05/12 with mild incr interstl markings ? mild chf. given lasix 40mg IVP x 1 - 05/14: bp drop after lasix. today bicarb up to 38 and lethargic (baseline unknown to me). Would hold po lasix tomorrow, monitor for when to resume. K 4.5 , mg 2.5. can stop standing repletion. -05/15-: no signs vol overload, cont to hold home lasix - 05/20-: no signs vol overload thus far, cont to hold home lasix -05/30: eating better now and starting to have some edema, will resume lasix 40 po qd htn: -cont current meds hld: -cont home statin, trilipix
[2017-05-30] MEDS: BRIMONIDINE TARTRATE 0.15% OPHTHALMIC 5 ML BOTTLE OD SCH ×2 (10:38→21:48)
[2017-05-30] MEDS: FLUTICASONE PROP 0.05% 16 GM NASAL SPRAY NS SCH (10:38)
[2017-05-30] MEDS: GABAPENTIN 300 MG CAPSULE (FP) PO SCH ×2 (10:38→21:48)
[2017-05-30] MEDS: predniSONE 10 MG TABLET (UD) PO SCH (10:39)
[2017-05-30] MEDS: METOPROLOL TARTRATE 25 MG TABLET (FP) PO SCH ×2 (10:39→21:48)
[2017-05-30] MEDS: RANITIDINE HCL 150 MG TABLET (FP) PO SCH ×2 (10:39→21:47)
[2017-05-30] MEDS: CHOLECALCIFEROL (VITAMIN D3) 1,000 UNIT TABLET (FP) PO SCH (10:39)
[2017-05-30] MEDS: SENNOSIDES 8.6MG TABLET (FP) PO SCH (10:39)
[2017-05-30] MEDS: FUROSEMIDE 40 MG TABLET (FP) PO SCH (10:39)
--- NOTE | 2017-05-30 11:41 | PN ---
Progress Note, Physician Chief Complaint: Mr Rivas says he is feeling well today. Denies cp, sob, n/v. Fully oriented today - Current Medication List Current Medications: Active Medications Acetaminophen (Tylenol -) 650 mg PO Q6H PRN PRN Reason: FEVER OR PAIN Last Admin: 05/19/17 00:53 Dose: 650 mg Al Hydroxide/Mg Hydroxide (Mylanta Oral Suspension -) 30 ml PO Q6H PRN PRN Reason: INDIGESTION Last Admin: 05/13/17 13:00 Dose: 30 ml Albuterol/Ipratropium (Duoneb -) 1 amp NEB Q4H PRN PRN Reason: SHORTNESS OF BREATH Last Admin: 05/21/17 10:38 Dose: 1 amp Amino Acids (Prosource No Carb Liquid Pkt) 30 ml PO BID@0800,1730 [facility] Last Admin: 05/30/17 10:37 Dose: 30 ml Ascorbic Acid (Vitamin C -) 500 mg PO HS [facility] Last Admin: 05/29/17 21:29 Dose: 500 mg Atorvastatin Calcium (Lipitor -) 10 mg PO HS [facility] Last Admin: 05/29/17 21:31 Dose: 10 mg Brimonidine Tartrate (Alphagan 0.15% -) 1 drop OD BID [facility] Last Admin: 05/30/17 10:38 Dose: 1 drop Cholecalciferol (Vitamin D3 -) 1,000 unit PO DAILY [facility] Last Admin: 05/30/17 10:39 Dose: 1,000 unit Docusate Sodium (Colace -) 200 mg PO HS [facility] Last Admin: 05/29/17 21:31 Dose: 200 mg Duloxetine HCl (Cymbalta -) 60 mg PO HS [facility] Last Admin: 05/29/17 21:30 Dose: 60 mg Fluticasone Propionate (Flonase -) 2 spray NS DAILY [facility] Last Admin: 05/30/17 10:38 Dose: 1 sprays Furosemide (Lasix -) 40 mg PO DAILY [facility] Last Admin: 05/30/17 10:39 Dose: 40 mg Gabapentin (Neurontin -) 600 mg PO BID [facility] Last Admin: 05/30/17 10:38 Dose: 600 mg Lactobacillus Acidophilus (Bacid -) 1 tab PO DAILY [facility] Last Admin: 05/29/17 10:30 Dose: 1 tab Levothyroxine Sodium (Synthroid -) 50 mcg PO DAILY@0700 [facility] Last Admin: 05/30/17 06:04 Dose: 50 mcg Metoprolol Tartrate (Lopressor -) 25 mg PO BID [facility] Last Admin: 05/30/17 10:39 Dose: 25 mg Prednisone (Deltasone -) 15 mg PO DAILY [facility] Last Admin: 05/30/17 10:39 Dose: 15 mg Ranitidine HCl (Zantac -) 150 mg PO BID [facility] Last Admin: 05/30/17 10:39 Dose: 150 mg Senna (Senna -) 2 tab PO DAILY [facility] Last Admin: 05/30/17 10:39 Dose: 2 tab Tiotropium [place] (Spiriva -) 1 puff IH DAILY [facility] Last Admin: 05/30/17 10:37 Dose: 1 puff - Objective Vital Signs: Vital Signs Temperature 36.6 C 05/30/17 05:51 Pulse Rate 76 05/30/17 11:03 Respiratory Rate 18 05/30/17 05:51 Blood Pressure 140/82 05/30/17 05:51 O2 Sat by Pulse Oximetry (%) 98 05/30/17 11:03 Constitutional: Yes: Well Nourished, No Distress, Calm Cardiovascular: Yes: Regular Rate and Rhythm. No: Gallop, Murmur, Rub Respiratory: Yes: Regular, On Nasal O2, Rhonchi. No: CTA Bilaterally, Rales, Wheezes Gastrointestinal: Yes: Normal Bowel Sounds, Soft. No: Distention, Tenderness Extremities: Yes: WNL Edema: No Labs: CBC, BMP 05/30/17 06:30 05/30/17 06:30 Problem List - Problems (1) Pneumonia Code(s): J18.9 - PNEUMONIA, UNSPECIFIED ORGANISM Qualifiers: Laterality: right Lung location: lower lobe of lung (2) Alkalosis, metabolic Code(s): E87.3 - ALKALOSIS (3) Atrial fibrillation Code(s): I48.91 - UNSPECIFIED ATRIAL FIBRILLATION Qualifiers: Atrial fibrillation type: chronic Qualified Code(s): I48.2 - Chronic atrial fibrillation (4) CHF (congestive heart failure) Code(s): I50.9 - HEART FAILURE, UNSPECIFIED Qualifiers: Congestive heart failure type: unspecified congestive heart failure type Congestive heart failure chronicity: chronic Qualified Code(s): I50.9 - Heart failure, unspecified (5) GERD (gastroesophageal reflux disease) Code(s): K21.9 - GASTRO-ESOPHAGEAL REFLUX DISEASE WITHOUT ESOPHAGITIS (6) HTN (hypertension) Code(s): I10 - ESSENTIAL (PRIMARY) HYPERTENSION (7) Hyperlipemia Code(s): E78.5 - HYPERLIPIDEMIA, UNSPECIFIED (8) Hypothyroidism Code(s): E03.9 - HYPOTHYROIDISM, UNSPECIFIED (9) PVD (peripheral vascular disease) Code(s): I73.9 - PERIPHERAL VASCULAR DISEASE, UNSPECIFIED (10) Acute respiratory failure Code(s): J96.00 - ACUTE RESPIRATORY FAILURE, UNSP W HYPOXIA OR HYPERCAPNIA Qualifiers: Respiratory failure complication: hypoxia and hypercapnia Qualified Code(s): J96.01 - Acute respiratory failure with hypoxia (11) Acute respiratory acidosis Code(s): E87.2 - ACIDOSIS (12) Hematuria Code(s): R31.9 - HEMATURIA, UNSPECIFIED Assessment/Plan (1) Community acquired pneumonia Assessment/Plan: -finished course of merrem -chest x-ray repeated and no sign of recurrent pneumonia (2) Respiratory acidosis Assessment/Plan: -suspect patient has sleep apnea -will d/w pulmonary, may benefit from cpap at night Code(s): (3) Atrial fibrillation Assessment/Plan: -rate controlled -continue metoprolol -d/rigo anticoagulants secondary to hematuria requiring transfusion Code(s): I48.91 - UNSPECIFIED ATRIAL FIBRILLATION Qualifiers: Atrial fibrillation type: chronic Qualified Code(s): I48.2 - Chronic atrial fibrillation (4) CHF (congestive heart failure) Assessment/Plan: -ECHO reviewed and cardiology following -CT scan showing pleural effusion -will trial lasix Code(s): I50.9 - HEART FAILURE, UNSPECIFIED Qualifiers: Congestive heart failure type: unspecified congestive heart failure type Congestive heart failure chronicity: chronic Qualified Code(s): I50.9 - Heart failure, unspecified (5) GERD (gastroesophageal reflux disease) Assessment/Plan: -continue zantac Code(s): K21.9 - GASTRO-ESOPHAGEAL REFLUX DISEASE WITHOUT ESOPHAGITIS (6) HTN (hypertension) Assessment/Plan: -controlled Code(s): I10 - ESSENTIAL (PRIMARY) HYPERTENSION (7) Hyperlipemia Assessment/Plan: -continue lipitor -hold fenofibrate secondary to inability to crush Code(s): E78.5 - HYPERLIPIDEMIA, UNSPECIFIED (8) Hypothyroidism Assessment/Plan: -continue synthroid Code(s): E03.9 - HYPOTHYROIDISM, UNSPECIFIED (9) PVD (peripheral vascular disease) Assessment/Plan: -holding lovenox -does not complain of claudication Code(s): I73.9 - PERIPHERAL VASCULAR DISEASE, UNSPECIFIED (10) Urinary retention -hematuria resolved -appreciate urology assistance -restart flomax -defer to urology about voiding trial (11) Metabolic encephalopathy -much improved today -? secondary to sleep apnea (12) Acute respiratory failure -resolved -pulmonary following (13) Uremia -back to baseline (14) Anemia -transfused with good response -monitor (15) Thrombocytopenia -resolved -secondary to sepsis -HIT antibodies negative (16) Hematuria -resolved -continue holding anticoagulant
[2017-05-30] MEDS: LACTOBACILLUS ACIDOPHILUS 1 EACH TAB (FP) PO SCH (12:20)
--- NOTE | 2017-05-30 12:54 | PN ---
Progress Note, [employer] - Note Progress Note: Selected Entries 05/28/17 05/28/17 05/28/17 06:05 09:10 11:33 Breakfast 75% Lunch Supper Temperature 97.7 F 97.0 F L 05/28/17 05/28/17 05/28/17 12:14 14:40 18:00 Breakfast Lunch 75% Supper 0 Temperature 97.7 F 98.6 F 97.9 F 05/28/17 05/29/17 05/29/17 20:00 02:00 05:57 Breakfast Lunch Supper Temperature 97.7 F 96.8 F L 98.7 F 05/29/17 12:19 Breakfast 75% Lunch Supper Temperature Selected Entries 05/29/17 05/29/17 05/29/17 02:00 05:57 10:00 Breakfast Lunch Temperature 96.8 F L 98.7 F 97.9 F 05/29/17 05/29/17 05/29/17 12:19 14:58 17:47 Breakfast 75% Lunch 75% Temperature 98.0 F 98.1 F 05/29/17 05/30/17 05/30/17 21:00 05:51 10:00 Breakfast Lunch Temperature 97.9 F 97.8 F 97.3 F L 05/30/17 10:10 Breakfast 100% Lunch Temperature Laboratory Tests 05/30/17 06:30 WBC 11.4 H Pt is tolerating diet, fed by his . She is aware of sw compensatory strategies and follows them well. Encourage supplements for increased density of nutritional intake.
--- NOTE | 2017-05-30 15:13 | PN ---
Progress Note, Physician History of Present Illness: patient doing much better goes in and out of confusion - Current Medication List Current Medications: Active Medications Acetaminophen (Tylenol -) 650 mg PO Q6H PRN PRN Reason: FEVER OR PAIN Last Admin: 05/19/17 00:53 Dose: 650 mg Al Hydroxide/Mg Hydroxide (Mylanta Oral Suspension -) 30 ml PO Q6H PRN PRN Reason: INDIGESTION Last Admin: 05/13/17 13:00 Dose: 30 ml Albuterol/Ipratropium (Duoneb -) 1 amp NEB Q4H PRN PRN Reason: SHORTNESS OF BREATH Last Admin: 05/21/17 10:38 Dose: 1 amp Amino Acids (Prosource No Carb Liquid Pkt) 30 ml PO BID@0800,1730 [facility] Last Admin: 05/30/17 10:37 Dose: 30 ml Ascorbic Acid (Vitamin C -) 500 mg PO HS [facility] Last Admin: 05/29/17 21:29 Dose: 500 mg Atorvastatin Calcium (Lipitor -) 10 mg PO HS [facility] Last Admin: 05/29/17 21:31 Dose: 10 mg Brimonidine Tartrate (Alphagan 0.15% -) 1 drop OD BID [facility] Last Admin: 05/30/17 10:38 Dose: 1 drop Cholecalciferol (Vitamin D3 -) 1,000 unit PO DAILY [facility] Last Admin: 05/30/17 10:39 Dose: 1,000 unit Docusate Sodium (Colace -) 200 mg PO HS [facility] Last Admin: 05/29/17 21:31 Dose: 200 mg Duloxetine HCl (Cymbalta -) 60 mg PO [facility] Last Admin: 05/29/17 21:30 Dose: 60 mg Fluticasone Propionate (Flonase -) 2 spray NS DAILY [facility] Last Admin: 05/30/17 10:38 Dose: 1 sprays Furosemide (Lasix -) 40 mg PO DAILY [facility] Last Admin: 05/30/17 10:39 Dose: 40 mg Gabapentin (Neurontin -) 600 mg PO BID [facility] Last Admin: 05/30/17 10:38 Dose: 600 mg Lactobacillus Acidophilus (Bacid -) 1 tab PO DAILY [facility] Last Admin: 05/30/17 12:20 Dose: 1 tab Levothyroxine Sodium (Synthroid -) 50 mcg PO DAILY@0700 [facility] Last Admin: 05/30/17 06:04 Dose: 50 mcg Metoprolol Tartrate (Lopressor -) 25 mg PO BID [facility] Last Admin: 05/30/17 10:39 Dose: 25 mg Prednisone (Deltasone -) 15 mg PO DAILY [facility] Last Admin: 05/30/17 10:39 Dose: 15 mg Ranitidine HCl (Zantac -) 150 mg PO BID [facility] Last Admin: 05/30/17 10:39 Dose: 150 mg Senna (Senna -) 2 tab PO DAILY [facility] Last Admin: 05/30/17 10:39 Dose: 2 tab Tiotropium [place] (Spiriva -) 1 puff IH DAILY [facility] Last Admin: 05/30/17 10:37 Dose: 1 puff - Objective Vital Signs: Vital Signs Temperature 97.3 F L 05/30/17 10:00 Pulse Rate 76 05/30/17 11:03 Respiratory Rate 20 05/30/17 10:00 Blood Pressure 138/58 05/30/17 10:00 O2 Sat by Pulse Oximetry (%) 98 05/30/17 11:03 Constitutional: Yes: No Distress, Calm Eyes: Yes: Conjunctiva Clear Cardiovascular: Yes: Regular Rate and Rhythm Respiratory: Yes: Regular, CTA Bilaterally Gastrointestinal: Yes: Normal Bowel Sounds, Soft Musculoskeletal: Yes: WNL Extremities: Yes: WNL Neurological: Yes: Alert, Other Psychiatric: Yes: Alert Labs: CBC, BMP 05/30/17 06:30 05/30/17 06:30 Assessment/Plan Problem List - Problems (1) Pneumonia Code(s): J18.9 - PNEUMONIA, UNSPECIFIED ORGANISM Qualifiers: Laterality: right Lung location: lower lobe of lung (2) Alkalosis, metabolic Code(s): E87.3 - ALKALOSIS (3) Atrial fibrillation Code(s): I48.91 - UNSPECIFIED ATRIAL FIBRILLATION Qualifiers: Atrial fibrillation type: chronic Qualified Code(s): I48.2 - Chronic atrial fibrillation (4) CHF (congestive heart failure) Code(s): I50.9 - HEART FAILURE, UNSPECIFIED Qualifiers: Congestive heart failure type: unspecified congestive heart failure type Congestive heart failure chronicity: chronic Qualified Code(s): I50.9 - Heart failure, unspecified (5) GERD (gastroesophageal reflux disease) Code(s): K21.9 - GASTRO-ESOPHAGEAL REFLUX DISEASE WITHOUT ESOPHAGITIS (6) HTN (hypertension) Code(s): I10 - ESSENTIAL (PRIMARY) HYPERTENSION (7) Hyperlipemia Code(s): E78.5 - HYPERLIPIDEMIA, UNSPECIFIED (8) Hypothyroidism Code(s): E03.9 - HYPOTHYROIDISM, UNSPECIFIED (9) PVD (peripheral vascular disease) Code(s): I73.9 - PERIPHERAL VASCULAR DISEASE, UNSPECIFIED Assessment/Plan (1) Community acquired pneumonia (2) Alkalosis, metabolic Code(s): E87.3 - ALKALOSIS (3) Atrial fibrillation Code(s): I48.91 - UNSPECIFIED ATRIAL FIBRILLATION Qualifiers: Atrial fibrillation type: chronic Qualified Code(s): I48.2 - Chronic atrial fibrillation (4) CHF (congestive heart failure) Code(s): I50.9 - HEART FAILURE, UNSPECIFIED Qualifiers: Congestive heart failure type: unspecified congestive heart failure type Congestive heart failure chronicity: chronic Qualified Code(s): I50.9 - Heart failure, unspecified (5) GERD (gastroesophageal reflux disease) Code(s): K21.9 - GASTRO-ESOPHAGEAL REFLUX DISEASE WITHOUT ESOPHAGITIS (6) HTN (hypertension) Code(s): I10 - ESSENTIAL (PRIMARY) HYPERTENSION (7) Hyperlipemia Code(s): E78.5 - HYPERLIPIDEMIA, UNSPECIFIED (8) Hypothyroidism Code(s): E03.9 - HYPOTHYROIDISM, UNSPECIFIED (9) PVD (peripheral vascular disease) Code(s): I73.9 - PERIPHERAL VASCULAR DISEASE, UNSPECIFIED wbc trending down plan continue monitoring incentive [facility] patient continues to have sore throat
[2017-05-30] MEDS: DULoxetine HCL 30 MG CAPSULE.DR (FP) PO SCH (21:47)
[2017-05-30] MEDS: ATORVASTATIN CA 10 MG TABLET (FP) PO SCH (21:47)
[2017-05-30] MEDS: DOCUSATE SODIUM 100 MG CAPSULE (FP) PO SCH (21:48)
[2017-05-30] MEDS: ASCORBIC ACID 500 MG TABLET (FP) PO SCH (21:48)
[2017-05-31] MEDS: LEVOTHYROXINE NA 50 MCG TABLET (FP) PO SCH (06:21)
[2017-05-31 07:11] LABS: BASOPHIL 0.4 % (0-2.0); EOSINOPHIL 0.2 % (0-4.5); MCH 33.2 pg (25.7-33.7); MEAN CELL VOLUME 100.6 fl (80-96); MEAN PLT VOLUME 9.2 fl (7.5-11.1); NEUTROPHILS 87.4 % (42.8-82.8); PLATELET COUNT 102 K/MM3 (134-434); RDW 18.3 % (11.9-15.9); WHITE BLOOD COUNT 7.8 K/mm3 (4.0-10.0)
[2017-05-31 07:54] LABS: ANION GAP 3 (8-16); CALCIUM 8.6 mg/dL (8.5-10.1); CO2 40 mmol/L (21-32); CREATININE 0.5 mg/dL (0.7-1.3); GLUCOSE,RANDOM 89 mg/dL (74-106); PHOSPHOROUS 3.8 mg/dL (2.5-4.9)
[2017-05-31] MEDS: AMINO ACIDS/PROTEIN HYDROLYS 30 ML LIQUID.PKT PO SCH ×2 (08:12→17:33)
[2017-05-31] MEDS: TAMSULOSIN HCL 0.4 MG CAP.ER.24H (FP) PO SCH (08:24)
[2017-05-31] MEDS ORDERED: PT OWN MED DRAWER 7, Y5N ONE ×2 (09:27→10:56)
[2017-05-31] MEDS: LACTOBACILLUS ACIDOPHILUS 1 EACH TAB (FP) PO SCH (09:42)
[2017-05-31] MEDS: SENNOSIDES 8.6MG TABLET (FP) PO SCH (09:42)
[2017-05-31] MEDS: METOPROLOL TARTRATE 25 MG TABLET (FP) PO SCH ×2 (09:42→22:41)
[2017-05-31] MEDS: CHOLECALCIFEROL (VITAMIN D3) 1,000 UNIT TABLET (FP) PO SCH (09:42)
[2017-05-31] MEDS: GABAPENTIN 300 MG CAPSULE (FP) PO SCH ×2 (09:42→22:40)
[2017-05-31] MEDS: predniSONE 10 MG TABLET (UD) PO SCH (09:43)
[2017-05-31] MEDS: RANITIDINE HCL 150 MG TABLET (FP) PO SCH ×2 (09:43→22:40)
[2017-05-31] MEDS: FUROSEMIDE 40 MG TABLET (FP) PO SCH ×2 (09:44→14:04)
[2017-05-31] MEDS: BRIMONIDINE TARTRATE 0.15% OPHTHALMIC 5 ML BOTTLE OD SCH ×2 (09:44→22:41)
[2017-05-31] MEDS: FLUTICASONE PROP 0.05% 16 GM NASAL SPRAY NS SCH (11:23)
[2017-05-31] MEDS: TIOTROPIUM BROMIDE 18 MCG/INH (DEVICE W/ 5 CAPSULES) IH SCH (11:23)
--- NOTE | 2017-05-31 13:20 | PN ---
Progress Note (short form) - Note Progress Note: PULMONARY AWAKE/ PRESENT/LESS CONFUSED VSS/ANICTERIC/PALE DIMINISHED BREATH SOUNDS S1S2 IRREGULAR BS+ NO EDEMA LABS/MEDS/NOTES/IMAGING/ABG REVIEWED A/P Pneumonia Atrial Fibrillation LV Diastolic Dysfunction CAD HTN Hyperlipidemia - lasix increased to BID - steroids to be tapered - inhaled bronchodilators - rate controlled - monitor urine output Coleen STOKES MD
--- NOTE | 2017-05-31 13:55 | PN ---
Progress Note, Physician History of Present Illness: stable less confusion had pt - Current Medication List Current Medications: Active Medications Acetaminophen (Tylenol -) 650 mg PO Q6H PRN PRN Reason: FEVER OR PAIN Last Admin: 05/19/17 00:53 Dose: 650 mg Al Hydroxide/Mg Hydroxide (Mylanta Oral Suspension -) 30 ml PO Q6H PRN PRN Reason: INDIGESTION Last Admin: 05/13/17 13:00 Dose: 30 ml Albuterol/Ipratropium (Duoneb -) 1 amp NEB Q4H PRN PRN Reason: SHORTNESS OF BREATH Last Admin: 05/21/17 10:38 Dose: 1 amp Amino Acids (Prosource No Carb Liquid Pkt) 30 ml PO BID@0800,1730 [facility] Last Admin: 05/31/17 08:12 Dose: 30 ml Ascorbic Acid (Vitamin C -) 500 mg PO HS [facility] Last Admin: 05/30/17 21:48 Dose: 500 mg Atorvastatin Calcium (Lipitor -) 10 mg PO [facility] Last Admin: 05/30/17 21:47 Dose: 10 mg Brimonidine Tartrate (Alphagan 0.15% -) 1 drop OD BID [facility] Last Admin: 05/31/17 09:44 Dose: 1 drop Cholecalciferol (Vitamin D3 -) 1,000 unit PO DAILY [facility] Last Admin: 05/31/17 09:42 Dose: 1,000 unit Docusate Sodium (Colace -) 200 mg PO HS [facility] Last Admin: 05/30/17 21:48 Dose: 200 mg Duloxetine HCl (Cymbalta -) 60 mg PO [facility] Last Admin: 05/30/17 21:47 Dose: 60 mg Fluticasone Propionate (Flonase -) 2 spray NS DAILY [facility] Last Admin: 05/31/17 11:23 Dose: 2 sprays Furosemide (Lasix -) 40 mg PO BID@0600,1400 [facility] Gabapentin (Neurontin -) 600 mg PO BID [facility] Last Admin: 05/31/17 09:42 Dose: 600 mg Lactobacillus Acidophilus (Bacid -) 1 tab PO DAILY [facility] Last Admin: 05/31/17 09:42 Dose: 1 tab Levothyroxine Sodium (Synthroid -) 50 mcg PO DAILY@0700 [facility] Last Admin: 05/31/17 06:21 Dose: 50 mcg Metoprolol Tartrate (Lopressor -) 25 mg PO BID [facility] Last Admin: 05/31/17 09:42 Dose: 25 mg Prednisone (Deltasone -) 15 mg PO DAILY [facility] Last Admin: 05/31/17 09:43 Dose: 15 mg Ranitidine HCl (Zantac -) 150 mg PO BID [facility] Last Admin: 05/31/17 09:43 Dose: 150 mg Senna (Senna -) 2 tab PO DAILY [facility] Last Admin: 05/31/17 09:42 Dose: 2 tab Tamsulosin HCl (Flomax -) 0.4 mg PO DAILY@0830 [facility] Last Admin: 05/31/17 08:24 Dose: 0.4 mg Tiotropium [place] (Spiriva -) 1 puff IH DAILY [facility] Last Admin: 05/31/17 11:23 Dose: 1 puff - Objective Vital Signs: Vital Signs Temperature 97.4 F L 05/31/17 06:00 Pulse Rate 64 05/31/17 10:43 Respiratory Rate 18 05/31/17 06:00 Blood Pressure 150/73 05/31/17 06:00 O2 Sat by Pulse Oximetry (%) 99 05/31/17 10:43 Constitutional: Yes: No Distress, Calm Cardiovascular: Yes: Regular Rate and Rhythm Respiratory: Yes: Regular, CTA Bilaterally Gastrointestinal: Yes: Normal Bowel Sounds, Soft Musculoskeletal: Yes: WNL Extremities: Yes: WNL Neurological: Yes: Alert Psychiatric: Yes: Alert Labs: CBC, BMP 05/31/17 06:00 05/31/17 07:02 Assessment/Plan Problem List - Problems (1) Pneumonia Code(s): J18.9 - PNEUMONIA, UNSPECIFIED ORGANISM Qualifiers: Laterality: right Lung location: lower lobe of lung (2) Alkalosis, metabolic Code(s): E87.3 - ALKALOSIS (3) Atrial fibrillation Code(s): I48.91 - UNSPECIFIED ATRIAL FIBRILLATION Qualifiers: Atrial fibrillation type: chronic Qualified Code(s): I48.2 - Chronic atrial fibrillation (4) CHF (congestive heart failure) Code(s): I50.9 - HEART FAILURE, UNSPECIFIED Qualifiers: Congestive heart failure type: unspecified congestive heart failure type Congestive heart failure chronicity: chronic Qualified Code(s): I50.9 - Heart failure, unspecified (5) GERD (gastroesophageal reflux disease) Code(s): K21.9 - GASTRO-ESOPHAGEAL REFLUX DISEASE WITHOUT ESOPHAGITIS (6) HTN (hypertension) Code(s): I10 - ESSENTIAL (PRIMARY) HYPERTENSION (7) Hyperlipemia Code(s): E78.5 - HYPERLIPIDEMIA, UNSPECIFIED (8) Hypothyroidism Code(s): E03.9 - HYPOTHYROIDISM, UNSPECIFIED (9) PVD (peripheral vascular disease) Code(s): I73.9 - PERIPHERAL VASCULAR DISEASE, UNSPECIFIED Assessment/Plan (1) Community acquired pneumonia (2) Alkalosis, metabolic Code(s): E87.3 - ALKALOSIS (3) Atrial fibrillation Code(s): I48.91 - UNSPECIFIED ATRIAL FIBRILLATION Qualifiers: Atrial fibrillation type: chronic Qualified Code(s): I48.2 - Chronic atrial fibrillation (4) CHF (congestive heart failure) Code(s): I50.9 - HEART FAILURE, UNSPECIFIED Qualifiers: Congestive heart failure type: unspecified congestive heart failure type Congestive heart failure chronicity: chronic Qualified Code(s): I50.9 - Heart failure, unspecified (5) GERD (gastroesophageal reflux disease) Code(s): K21.9 - GASTRO-ESOPHAGEAL REFLUX DISEASE WITHOUT ESOPHAGITIS (6) HTN (hypertension) Code(s): I10 - ESSENTIAL (PRIMARY) HYPERTENSION (7) Hyperlipemia Code(s): E78.5 - HYPERLIPIDEMIA, UNSPECIFIED (8) Hypothyroidism Code(s): E03.9 - HYPOTHYROIDISM, UNSPECIFIED (9) PVD (peripheral vascular disease) Code(s): I73.9 - PERIPHERAL VASCULAR DISEASE, UNSPECIFIED wbc trending down plan continue monitoring incentive [facility] aspiration precautions
--- NOTE | 2017-05-31 16:40 | PN ---
Progress Note, Physician Chief Complaint: Mr Rivas says he is feeling well today. Denies cp, sob, n/v. Fully oriented today - Current Medication List Current Medications: Active Medications Acetaminophen (Tylenol -) 650 mg PO Q6H PRN PRN Reason: FEVER OR PAIN Last Admin: 05/19/17 00:53 Dose: 650 mg Al Hydroxide/Mg Hydroxide (Mylanta Oral Suspension -) 30 ml PO Q6H PRN PRN Reason: INDIGESTION Last Admin: 05/13/17 13:00 Dose: 30 ml Albuterol/Ipratropium (Duoneb -) 1 amp NEB Q4H PRN PRN Reason: SHORTNESS OF BREATH Last Admin: 05/21/17 10:38 Dose: 1 amp Amino Acids (Prosource No Carb Liquid Pkt) 30 ml PO BID@0800,1730 [facility] Last Admin: 05/31/17 08:12 Dose: 30 ml Ascorbic Acid (Vitamin C -) 500 mg PO HS [facility] Last Admin: 05/30/17 21:48 Dose: 500 mg Atorvastatin Calcium (Lipitor -) 10 mg PO HS [facility] Last Admin: 05/30/17 21:47 Dose: 10 mg Brimonidine Tartrate (Alphagan 0.15% -) 1 drop OD BID [facility] Last Admin: 05/31/17 09:44 Dose: 1 drop Cholecalciferol (Vitamin D3 -) 1,000 unit PO DAILY [facility] Last Admin: 05/31/17 09:42 Dose: 1,000 unit Docusate Sodium (Colace -) 200 mg PO HS [facility] Last Admin: 05/30/17 21:48 Dose: 200 mg Duloxetine HCl (Cymbalta -) 60 mg PO [facility] Last Admin: 05/30/17 21:47 Dose: 60 mg Fluticasone Propionate (Flonase -) 2 spray NS DAILY [facility] Last Admin: 05/31/17 11:23 Dose: 2 sprays Furosemide (Lasix -) 40 mg PO BID@0600,1400 [facility] Last Admin: 05/31/17 14:04 Dose: 40 mg Gabapentin (Neurontin -) 600 mg PO BID [facility] Last Admin: 05/31/17 09:42 Dose: 600 mg Lactobacillus Acidophilus (Bacid -) 1 tab PO DAILY [facility] Last Admin: 05/31/17 09:42 Dose: 1 tab Levothyroxine Sodium (Synthroid -) 50 mcg PO DAILY@0700 [facility] Last Admin: 05/31/17 06:21 Dose: 50 mcg Metoprolol Tartrate (Lopressor -) 25 mg PO BID [facility] Last Admin: 05/31/17 09:42 Dose: 25 mg Prednisone (Deltasone -) 15 mg PO DAILY [facility] Last Admin: 05/31/17 09:43 Dose: 15 mg Ranitidine HCl (Zantac -) 150 mg PO BID [facility] Last Admin: 05/31/17 09:43 Dose: 150 mg Senna (Senna -) 2 tab PO DAILY [facility] Last Admin: 05/31/17 09:42 Dose: 2 tab Tamsulosin HCl (Flomax -) 0.4 mg PO DAILY@0830 [facility] Last Admin: 05/31/17 08:24 Dose: 0.4 mg Tiotropium [place] (Spiriva -) 1 puff IH DAILY [facility] Last Admin: 05/31/17 11:23 Dose: 1 puff - Objective Vital Signs: Vital Signs Temperature 36.4 C L 05/31/17 09:00 Pulse Rate 64 05/31/17 10:43 Respiratory Rate 18 05/31/17 09:00 Blood Pressure 174/95 05/31/17 09:00 O2 Sat by Pulse Oximetry (%) 99 05/31/17 10:43 Constitutional: Yes: Well Nourished, No Distress, Calm Cardiovascular: Yes: Regular Rate and Rhythm. No: Gallop, Murmur, Rub Respiratory: Yes: Regular, CTA Bilaterally. No: Rales, Rhonchi, Wheezes Gastrointestinal: Yes: Normal Bowel Sounds, Soft. No: Distention, Tenderness Extremities: Yes: WNL Edema: No Labs: CBC, BMP 05/31/17 06:00 05/31/17 07:02 Problem List - Problems (1) Pneumonia Code(s): J18.9 - PNEUMONIA, UNSPECIFIED ORGANISM Qualifiers: Laterality: right Lung location: lower lobe of lung (2) Alkalosis, metabolic Code(s): E87.3 - ALKALOSIS (3) Atrial fibrillation Code(s): I48.91 - UNSPECIFIED ATRIAL FIBRILLATION Qualifiers: Atrial fibrillation type: chronic Qualified Code(s): I48.2 - Chronic atrial fibrillation (4) CHF (congestive heart failure) Code(s): I50.9 - HEART FAILURE, UNSPECIFIED Qualifiers: Congestive heart failure type: unspecified congestive heart failure type Congestive heart failure chronicity: chronic Qualified Code(s): I50.9 - Heart failure, unspecified (5) GERD (gastroesophageal reflux disease) Code(s): K21.9 - GASTRO-ESOPHAGEAL REFLUX DISEASE WITHOUT ESOPHAGITIS (6) HTN (hypertension) Code(s): I10 - ESSENTIAL (PRIMARY) HYPERTENSION (7) Hyperlipemia Code(s): E78.5 - HYPERLIPIDEMIA, UNSPECIFIED (8) Hypothyroidism Code(s): E03.9 - HYPOTHYROIDISM, UNSPECIFIED (9) PVD (peripheral vascular disease) Code(s): I73.9 - PERIPHERAL VASCULAR DISEASE, UNSPECIFIED (10) Acute respiratory failure Code(s): J96.00 - ACUTE RESPIRATORY FAILURE, UNSP W HYPOXIA OR HYPERCAPNIA Qualifiers: Respiratory failure complication: hypoxia and hypercapnia Qualified Code(s): J96.01 - Acute respiratory failure with hypoxia (11) Acute respiratory acidosis Code(s): E87.2 - ACIDOSIS (12) Hematuria Code(s): R31.9 - HEMATURIA, UNSPECIFIED Assessment/Plan (1) Community acquired pneumonia Assessment/Plan: -finished course of merrem -chest x-ray repeated and no sign of recurrent pneumonia (2) Respiratory acidosis Assessment/Plan: -case d/w pulmonary -trial of diuresis to see if improves Code(s): (3) Atrial fibrillation Assessment/Plan: -rate controlled -continue metoprolol -d/rigo anticoagulants secondary to hematuria requiring transfusion Code(s): I48.91 - UNSPECIFIED ATRIAL FIBRILLATION Qualifiers: Atrial fibrillation type: chronic Qualified Code(s): I48.2 - Chronic atrial fibrillation (4) CHF (congestive heart failure) Assessment/Plan: -ECHO reviewed and cardiology following -CT scan showing pleural effusion -lasix increased to bid Code(s): I50.9 - HEART FAILURE, UNSPECIFIED Qualifiers: Congestive heart failure type: unspecified congestive heart failure type Congestive heart failure chronicity: chronic Qualified Code(s): I50.9 - Heart failure, unspecified (5) GERD (gastroesophageal reflux disease) Assessment/Plan: -continue zantac Code(s): K21.9 - GASTRO-ESOPHAGEAL REFLUX DISEASE WITHOUT ESOPHAGITIS (6) HTN (hypertension) Assessment/Plan: -controlled Code(s): I10 - ESSENTIAL (PRIMARY) HYPERTENSION (7) Hyperlipemia Assessment/Plan: -continue lipitor -hold fenofibrate secondary to inability to crush Code(s): E78.5 - HYPERLIPIDEMIA, UNSPECIFIED (8) Hypothyroidism Assessment/Plan: -continue synthroid Code(s): E03.9 - HYPOTHYROIDISM, UNSPECIFIED (9) PVD (peripheral vascular disease) Assessment/Plan: -holding lovenox -does not complain of claudication Code(s): I73.9 - PERIPHERAL VASCULAR DISEASE, UNSPECIFIED (10) Urinary retention -hematuria resolved -appreciate urology assistance -restart flomax -defer to urology about voiding trial (11) Metabolic encephalopathy -much improved today -appears at baseline (12) Acute respiratory failure -resolved -pulmonary following (13) Uremia -back to baseline (14) Anemia -transfused with good response -monitor (15) Thrombocytopenia -resolved -secondary to sepsis -HIT antibodies negative (16) Hematuria -resolved -continue holding anticoagulant Dispo -monitor over weekend with plan to discharge on Saturday/Saturday
--- NOTE | 2017-05-31 19:37 | PN ---
Progress Note (short form) - Note Progress Note: cc: sob. s: no cp palps dizzy, sob better, eating better. lasix increased to bid today. sleepy/lethargic this evening. Current Medications Acetaminophen (Tylenol -) 650 mg PO Q6H PRN PRN Reason: FEVER OR PAIN Last Admin: 05/19/17 00:53 Dose: 650 mg Al Hydroxide/Mg Hydroxide (Mylanta Oral Suspension -) 30 ml PO Q6H PRN PRN Reason: INDIGESTION Last Admin: 05/13/17 13:00 Dose: 30 ml Albuterol/Ipratropium (Duoneb -) 1 amp NEB Q4H PRN PRN Reason: SHORTNESS OF BREATH Last Admin: 05/21/17 10:38 Dose: 1 amp Amino Acids (Prosource No Carb Liquid Pkt) 30 ml PO BID@0800,1730 [facility] Last Admin: 05/31/17 17:33 Dose: 30 ml Ascorbic Acid (Vitamin C -) 500 mg PO HS [facility] Last Admin: 05/30/17 21:48 Dose: 500 mg Atorvastatin Calcium (Lipitor -) 10 mg PO HS [facility] Last Admin: 05/30/17 21:47 Dose: 10 mg Brimonidine Tartrate (Alphagan 0.15% -) 1 drop OD BID [facility] Last Admin: 05/31/17 09:44 Dose: 1 drop Cholecalciferol (Vitamin D3 -) 1,000 unit PO DAILY [facility] Last Admin: 05/31/17 09:42 Dose: 1,000 unit Docusate Sodium (Colace -) 200 mg PO [facility] Last Admin: 05/30/17 21:48 Dose: 200 mg Duloxetine HCl (Cymbalta -) 60 mg PO [facility] Last Admin: 05/30/17 21:47 Dose: 60 mg Fluticasone Propionate (Flonase -) 2 spray NS DAILY [facility] Last Admin: 05/31/17 11:23 Dose: 2 sprays Furosemide (Lasix -) 40 mg PO BID@0600,1400 [facility] Last Admin: 05/31/17 14:04 Dose: 40 mg Gabapentin (Neurontin -) 600 mg PO BID [facility] Last Admin: 05/31/17 09:42 Dose: 600 mg Lactobacillus Acidophilus (Bacid -) 1 tab PO DAILY [facility] Last Admin: 05/31/17 09:42 Dose: 1 tab Levothyroxine Sodium (Synthroid -) 50 mcg PO DAILY@0700 [facility] Last Admin: 05/31/17 06:21 Dose: 50 mcg Metoprolol Tartrate (Lopressor -) 25 mg PO BID [facility] Last Admin: 05/31/17 09:42 Dose: 25 mg Prednisone (Deltasone -) 15 mg PO DAILY [facility] Last Admin: 05/31/17 09:43 Dose: 15 mg Ranitidine HCl (Zantac -) 150 mg PO BID [facility] Last Admin: 05/31/17 09:43 Dose: 150 mg Senna (Senna -) 2 tab PO DAILY [facility] Last Admin: 05/31/17 09:42 Dose: 2 tab Tamsulosin HCl (Flomax -) 0.4 mg PO DAILY@0830 [facility] Last Admin: 05/31/17 08:24 Dose: 0.4 mg Tiotropium [place] (Spiriva -) 1 puff IH DAILY [facility] Last Admin: 05/31/17 11:23 Dose: 1 puff Vital Signs - 24 hr 05/30/17 05/30/17 05/31/17 21:00 22:00 06:00 Temperature 98.4 F 97.4 F L Pulse Rate 70 70 Respiratory 18 18 18 Rate Blood Pressure 140/70 150/73 O2 Sat by Pulse 100 Oximetry (%) 05/31/17 05/31/17 09:00 10:43 Temperature 97.5 F L Pulse Rate 75 64 Respiratory 18 Rate Blood Pressure 174/95 O2 Sat by Pulse 99 99 Oximetry (%) Intake & Output 05/29/17 05/30/17 05/31/17 06/01/17 07:59 07:59 07:59 07:59 Intake Total 418 177 5701 Output Total 1000 1650 1875 Balance -1000 -1050 -1625 1270 Constitutional: Yes: No Distress, Calm Cardiovascular: Yes: irregular Rate and Rhythm, S1, S2. No: Gallop, Murmur Respiratory: Yes:bibasilar dullness. No: Accessory Muscle Use Extremities: No: Cold Edema: dependent edema of sacrum Neurological: Yes: alert today, conversational. No: Seizure Psychiatric: No: Agitated no jaundice diaphoresis Labs: CBC, BMP 05/31/17 06:00 05/31/17 07:02 echo 05/2017: mild, global LV hypo; nl RV; mild MR; mild ao root dilation (no RVSP) echo 10/2016: low nl lvef, nl lv size, nl rv, mild elena, mild mr/tr, rvsp 40-50 mibi 10/2016: no ischemia head ct 05/14: chronic rt cerebellar infarct, no acute pathology. a/p: 86 Y/O Gentleman with a PMhx that includes CKD, CAD s/p pci to rca 2004 ( patent on cath 2006), PVD s/p le bypass/stents/amputations, HTN, Afib on AC, here with sob, weakness found to have pna. fatigue, sob: -bnp high, but outpt lasix has not improved his sxs and here with no signs of vol overload so does not seem that chf causing his sxs. -imaging shows pna, mucus plugs, possibly aspirating, was on abx, steroids per ID/pulm-->symptomatically improving afib: - had been on pradaxa but was switched to lovenox while unable to take po. - 05/21 Now able to take po but with hematuria and hgb/platelets low so lovenox has been stopped for now. following - rate controlled, cont low dose bb cad s/p remote pci: -stable -no signs acs -cont AC, statin. has been off bb/acei due to low bp as outpt, but started BB here for AF chronic diastolic chf: -bnp 23K (baseline 8-10K) -05/13: has been on lasix 40 po daily, wts ranging 151-157 here, suspect JVD on exam though he is asymptomatic. cxr 05/12 with mild incr interstl markings ? mild chf. given lasix 40mg IVP x 1 - 05/14: bp drop after lasix. today bicarb up to 38 and lethargic (baseline unknown to me). Would hold po lasix tomorrow, monitor for when to resume. K 4.5 , mg 2.5. can stop standing repletion. -05/15-: no signs vol overload, cont to hold home lasix - 05/20-: no signs vol overload thus far, cont to hold home lasix -05/30: eating better now and starting to have some edema, will resume lasix 40 po qd - 05/31 lasix uptitrated to 40 mg bid. monitor bicarb (40 today), pulm following. Repeat pa/lat cxr tomorrow. unclear if edema from volume overload or third spacing from low albumin. htn: -cont current meds. slightly higher today, con't to monitor for need to uptitrate regimen hld: -cont home statin, trilipix
[2017-05-31] MEDS: ATORVASTATIN CA 10 MG TABLET (FP) PO SCH (22:40)
[2017-05-31] MEDS: DULoxetine HCL 30 MG CAPSULE.DR (FP) PO SCH (22:40)
[2017-05-31] MEDS: ASCORBIC ACID 500 MG TABLET (FP) PO SCH (22:41)
[2017-05-31] MEDS: DOCUSATE SODIUM 100 MG CAPSULE (FP) PO SCH (22:41)
[2017-06-01] MEDS: LEVOTHYROXINE NA 50 MCG TABLET (FP) PO SCH ×2 (05:55→08:04)
[2017-06-01] MEDS: FUROSEMIDE 40 MG TABLET (FP) PO SCH ×2 (05:55→14:58)
[2017-06-01 08:08] LABS: BASOPHIL 0.5 % (0-2.0); EOSINOPHIL 0.3 % (0-4.5); MCHC 32.9 g/dl (32.0-35.9); MEAN CELL VOLUME 100.2 fl (80-96); MEAN PLT VOLUME 9.8 fl (7.5-11.1); NEUTROPHILS 89.4 % (42.8-82.8); PLATELET COUNT 98 K/MM3 (134-434); RDW 18.3 % (11.9-15.9); WHITE BLOOD COUNT 7.6 K/mm3 (4.0-10.0)
[2017-06-01 08:32] LABS: ANION GAP 7 (8-16); CALCIUM 8.5 mg/dL (8.5-10.1); CO2 42 mmol/L (21-32); GLUCOSE,RANDOM 82 mg/dL (74-106)
[2017-06-01 08:34] LABS: CREATININE 0.6 mg/dL (0.7-1.3); MAGNESIUM 1.9 mg/dL (1.8-2.4); PHOSPHOROUS 4.1 mg/dL (2.5-4.9)
[2017-06-01 08:50] LABS: ALBUMIN 2.7 g/dl (3.4-5.0); BILIRUBIN,DIRECT 0.3 mg/dL (0.0-0.2)
[2017-06-01 08:54] LABS: BILIRUBIN,TOTAL 0.7 mg/dL (0.2-1.0); TOT PROT 5.7 g/dl (6.4-8.2)
[2017-06-01] MEDS: AMINO ACIDS/PROTEIN HYDROLYS 30 ML LIQUID.PKT PO SCH ×2 (09:12→18:11)
[2017-06-01] MEDS: TAMSULOSIN HCL 0.4 MG CAP.ER.24H (FP) PO SCH (09:12)
[2017-06-01] MEDS: LACTOBACILLUS ACIDOPHILUS 1 EACH TAB (FP) PO SCH (09:27)
[2017-06-01] MEDS: CHOLECALCIFEROL (VITAMIN D3) 1,000 UNIT TABLET (FP) PO SCH (09:27)
[2017-06-01] MEDS: GABAPENTIN 300 MG CAPSULE (FP) PO SCH ×2 (09:28→22:44)
[2017-06-01] MEDS: METOPROLOL TARTRATE 25 MG TABLET (FP) PO SCH ×2 (09:28→22:44)
[2017-06-01] MEDS: predniSONE 10 MG TABLET (UD) PO SCH (09:28)
[2017-06-01] MEDS: SENNOSIDES 8.6MG TABLET (FP) PO SCH (09:29)
[2017-06-01] MEDS: FLUTICASONE PROP 0.05% 16 GM NASAL SPRAY NS SCH (09:37)
[2017-06-01] MEDS: BRIMONIDINE TARTRATE 0.15% OPHTHALMIC 5 ML BOTTLE OD SCH ×2 (09:38→22:45)
[2017-06-01] MEDS: RANITIDINE HCL 150 MG TABLET (FP) PO SCH ×2 (09:38→22:44)
[2017-06-01] MEDS: TIOTROPIUM BROMIDE 18 MCG/INH (DEVICE W/ 5 CAPSULES) IH SCH (09:38)
--- NOTE | 2017-06-01 13:23 | PN ---
Progress Note, Physician History of Present Illness: doing well - Current Medication List Current Medications: Active Medications Acetaminophen (Tylenol -) 650 mg PO Q6H PRN PRN Reason: FEVER OR PAIN Last Admin: 05/19/17 00:53 Dose: 650 mg Al Hydroxide/Mg Hydroxide (Mylanta Oral Suspension -) 30 ml PO Q6H PRN PRN Reason: INDIGESTION Last Admin: 05/13/17 13:00 Dose: 30 ml Albuterol/Ipratropium (Duoneb -) 1 amp NEB Q4H PRN PRN Reason: SHORTNESS OF BREATH Last Admin: 05/21/17 10:38 Dose: 1 amp Amino Acids (Prosource No Carb Liquid Pkt) 30 ml PO BID@0800,1730 [facility] Last Admin: 06/01/17 09:12 Dose: 30 ml Ascorbic Acid (Vitamin C -) 500 mg PO [facility] Last Admin: 05/31/17 22:41 Dose: 500 mg Atorvastatin Calcium (Lipitor -) 10 mg PO [facility] Last Admin: 05/31/17 22:40 Dose: 10 mg Brimonidine Tartrate (Alphagan 0.15% -) 1 drop OD BID [facility] Last Admin: 06/01/17 09:38 Dose: 1 drop Cholecalciferol (Vitamin D3 -) 1,000 unit PO DAILY [facility] Last Admin: 06/01/17 09:27 Dose: 1,000 unit Docusate Sodium (Colace -) 200 mg PO [facility] Last Admin: 05/31/17 22:41 Dose: 200 mg Duloxetine HCl (Cymbalta -) 60 mg PO [facility] Last Admin: 05/31/17 22:40 Dose: 60 mg Fluticasone Propionate (Flonase -) 2 spray NS DAILY [facility] Last Admin: 06/01/17 09:37 Dose: 2 sprays Furosemide (Lasix -) 40 mg PO BID@0600,1400 [facility] Last Admin: 06/01/17 05:55 Dose: 40 mg Gabapentin (Neurontin -) 600 mg PO BID [facility] Last Admin: 06/01/17 09:28 Dose: 600 mg Lactobacillus Acidophilus (Bacid -) 1 tab PO DAILY [facility] Last Admin: 06/01/17 09:27 Dose: 1 tab Levothyroxine Sodium (Synthroid -) 50 mcg PO DAILY@0700 [facility] Last Admin: 06/01/17 08:04 Dose: Not Given Metoprolol Tartrate (Lopressor -) 25 mg PO BID [facility] Last Admin: 06/01/17 09:28 Dose: 25 mg Prednisone (Deltasone -) 15 mg PO DAILY [facility] Last Admin: 06/01/17 09:28 Dose: 15 mg Ranitidine HCl (Zantac -) 150 mg PO BID [facility] Last Admin: 06/01/17 09:38 Dose: 150 mg Senna (Senna -) 2 tab PO DAILY [facility] Last Admin: 06/01/17 09:29 Dose: 2 tab Tamsulosin HCl (Flomax -) 0.4 mg PO DAILY@0830 [facility] Last Admin: 06/01/17 09:12 Dose: 0.4 mg Tiotropium [place] (Spiriva -) 1 puff IH DAILY [facility] Last Admin: 06/01/17 09:38 Dose: 1 puff - Objective Vital Signs: Vital Signs Temperature 98.1 F 06/01/17 10:00 Pulse Rate 75 06/01/17 10:00 Respiratory Rate 18 06/01/17 10:00 Blood Pressure 146/65 06/01/17 10:00 O2 Sat by Pulse Oximetry (%) 96 05/31/17 21:00 Constitutional: Yes: No Distress HENT: Yes: Atraumatic Neck: Yes: Supple Cardiovascular: Yes: Regular Rate and Rhythm Respiratory: Yes: CTA Bilaterally Gastrointestinal: Yes: Normal Bowel Sounds Extremities: Yes: WNL Edema: No Neurological: Yes: Alert, Oriented Labs: CBC, BMP 06/01/17 07:00 06/01/17 07:00 Problem List - Problems (1) HTN (hypertension) Assessment/Plan: on meds stable Code(s): I10 - ESSENTIAL (PRIMARY) HYPERTENSION (2) Hyperlipemia Assessment/Plan: on meds stable Code(s): E78.5 - HYPERLIPIDEMIA, UNSPECIFIED (3) Hypothyroidism Assessment/Plan: on meds Code(s): E03.9 - HYPOTHYROIDISM, UNSPECIFIED (4) PVD (peripheral vascular disease) Code(s): I73.9 - PERIPHERAL VASCULAR DISEASE, UNSPECIFIED (5) Pneumonia Assessment/Plan: compkleted abx course afebrile Code(s): J18.9 - PNEUMONIA, UNSPECIFIED ORGANISM Qualifiers: Laterality: right Lung location: lower lobe of lung Assessment/Plan Assessment/Plan (1) Community acquired pneumonia (2) Alkalosis, metabolic Code(s): E87.3 - ALKALOSIS (3) Atrial fibrillation Code(s): I48.91 - UNSPECIFIED ATRIAL FIBRILLATION Qualifiers: Atrial fibrillation type: chronic Qualified Code(s): I48.2 - Chronic atrial fibrillation (4) CHF (congestive heart failure) Code(s): I50.9 - HEART FAILURE, UNSPECIFIED Qualifiers: Congestive heart failure type: unspecified congestive heart failure type Congestive heart failure chronicity: chronic Qualified Code(s): I50.9 - Heart failure, unspecified (5) GERD (gastroesophageal reflux disease) Code(s): K21.9 - GASTRO-ESOPHAGEAL REFLUX DISEASE WITHOUT ESOPHAGITIS (6) HTN (hypertension) Code(s): I10 - ESSENTIAL (PRIMARY) HYPERTENSION (7) Hyperlipemia Code(s): E78.5 - HYPERLIPIDEMIA, UNSPECIFIED (8) Hypothyroidism Code(s): E03.9 - HYPOTHYROIDISM, UNSPECIFIED (9) PVD (peripheral vascular disease) Code(s): I73.9 - PERIPHERAL VASCULAR DISEASE, UNSPECIFIED awaiting placement
--- NOTE | 2017-06-01 15:14 | PN ---
Progress Note, Physician History of Present Illness: Pt seen and examined. Events noted. Pt states he is well. Denies shortness of breath or cough, remains afebrile. - Current Medication List Current Medications: Active Medications Acetaminophen (Tylenol -) 650 mg PO Q6H PRN PRN Reason: FEVER OR PAIN Last Admin: 05/19/17 00:53 Dose: 650 mg Al Hydroxide/Mg Hydroxide (Mylanta Oral Suspension -) 30 ml PO Q6H PRN PRN Reason: INDIGESTION Last Admin: 05/13/17 13:00 Dose: 30 ml Albuterol/Ipratropium (Duoneb -) 1 amp NEB Q4H PRN PRN Reason: SHORTNESS OF BREATH Last Admin: 05/21/17 10:38 Dose: 1 amp Amino Acids (Prosource No Carb Liquid Pkt) 30 ml PO BID@0800,1730 [facility] Last Admin: 06/01/17 09:12 Dose: 30 ml Ascorbic Acid (Vitamin C -) 500 mg PO HS [facility] Last Admin: 05/31/17 22:41 Dose: 500 mg Atorvastatin Calcium (Lipitor -) 10 mg PO HS [facility] Last Admin: 05/31/17 22:40 Dose: 10 mg Brimonidine Tartrate (Alphagan 0.15% -) 1 drop OD BID [facility] Last Admin: 06/01/17 09:38 Dose: 1 drop Cholecalciferol (Vitamin D3 -) 1,000 unit PO DAILY [facility] Last Admin: 06/01/17 09:27 Dose: 1,000 unit Docusate Sodium (Colace -) 200 mg PO HS [facility] Last Admin: 05/31/17 22:41 Dose: 200 mg Duloxetine HCl (Cymbalta -) 60 mg PO HS [facility] Last Admin: 05/31/17 22:40 Dose: 60 mg Fluticasone Propionate (Flonase -) 2 spray NS DAILY [facility] Last Admin: 06/01/17 09:37 Dose: 2 sprays Furosemide (Lasix -) 40 mg PO BID@0600,1400 [facility] Last Admin: 06/01/17 14:58 Dose: 40 mg Gabapentin (Neurontin -) 600 mg PO BID [facility] Last Admin: 06/01/17 09:28 Dose: 600 mg Lactobacillus Acidophilus (Bacid -) 1 tab PO DAILY [facility] Last Admin: 06/01/17 09:27 Dose: 1 tab Levothyroxine Sodium (Synthroid -) 50 mcg PO DAILY@0700 [facility] Last Admin: 06/01/17 08:04 Dose: Not Given Metoprolol Tartrate (Lopressor -) 25 mg PO BID [facility] Last Admin: 06/01/17 09:28 Dose: 25 mg Prednisone (Deltasone -) 15 mg PO DAILY [facility] Last Admin: 06/01/17 09:28 Dose: 15 mg Ranitidine HCl (Zantac -) 150 mg PO BID [facility] Last Admin: 06/01/17 09:38 Dose: 150 mg Senna (Senna -) 2 tab PO DAILY [facility] Last Admin: 06/01/17 09:29 Dose: 2 tab Tamsulosin HCl (Flomax -) 0.4 mg PO DAILY@0830 [facility] Last Admin: 06/01/17 09:12 Dose: 0.4 mg Tiotropium [place] (Spiriva -) 1 puff IH DAILY [facility] Last Admin: 06/01/17 09:38 Dose: 1 puff - Objective Vital Signs: Vital Signs Temperature 98.1 F 06/01/17 10:00 Pulse Rate 91 H 06/01/17 14:23 Respiratory Rate 18 06/01/17 10:00 Blood Pressure 146/65 06/01/17 10:00 O2 Sat by Pulse Oximetry (%) 95 06/01/17 14:23 Constitutional: Yes: No Distress HENT: Yes: WNL Neck: Yes: Supple Cardiovascular: Yes: Pulse Irregular Respiratory: Yes: Diminished (slightly in bases) Gastrointestinal: Yes: Normal Bowel Sounds, Soft Genitourinary: Yes: WNL Psychiatric: Yes: Alert Labs: CBC, BMP 06/01/17 07:00 06/01/17 07:00 Problem List - Problems (1) Acute respiratory failure Code(s): J96.00 - ACUTE RESPIRATORY FAILURE, UNSP W HYPOXIA OR HYPERCAPNIA Qualifiers: Respiratory failure complication: hypoxia and hypercapnia Qualified Code(s): J96.01 - Acute respiratory failure with hypoxia (2) CAD (coronary artery disease) Code(s): I25.10 - ATHSCL HEART DISEASE OF [place] CORONARY ARTERY W/O ANG PCTRS (3) Dysphagia causing pulmonary aspiration with swallowing Code(s): R13.19 - OTHER DYSPHAGIA (4) Shortness of breath Code(s): R06.02 - SHORTNESS OF BREATH (5) Aspiration pneumonia Code(s): J69.0 - PNEUMONITIS DUE TO INHALATION OF FOOD AND VOMIT (6) CHF (congestive heart failure) Code(s): I50.9 - HEART FAILURE, UNSPECIFIED Qualifiers: Congestive heart failure type: unspecified congestive heart failure type Congestive heart failure chronicity: chronic Qualified Code(s): I50.9 - Heart failure, unspecified (7) Leukocytosis Code(s): D72.829 - ELEVATED WHITE BLOOD CELL COUNT, UNSPECIFIED Assessment/Plan Pt clinically improving leukocytosis resolved remains stable off antibiotics continue incentive spirometer aspiration precautions
[2017-06-01] MEDS ORDERED: PT OWN MED DRAWER 7, Y5N ONE (18:08)
[2017-06-01] MEDS: ASCORBIC ACID 500 MG TABLET (FP) PO SCH (22:43)
[2017-06-01] MEDS: DULoxetine HCL 30 MG CAPSULE.DR (FP) PO SCH (22:43)
[2017-06-01] MEDS: DOCUSATE SODIUM 100 MG CAPSULE (FP) PO SCH (22:43)
[2017-06-01] MEDS: ATORVASTATIN CA 10 MG TABLET (FP) PO SCH (22:44)
[2017-06-02] MEDS: LEVOTHYROXINE NA 50 MCG TABLET (FP) PO SCH (06:52)
[2017-06-02] MEDS: FUROSEMIDE 40 MG TABLET (FP) PO SCH ×2 (06:52→14:09)
[2017-06-02] MEDS: AMINO ACIDS/PROTEIN HYDROLYS 30 ML LIQUID.PKT PO SCH ×2 (08:42→17:12)
[2017-06-02] MEDS: TAMSULOSIN HCL 0.4 MG CAP.ER.24H (FP) PO SCH (08:42)
[2017-06-02] MEDS ORDERED: PT OWN MED DRAWER 7, Y5N ONE (09:13)
[2017-06-02] MEDS: predniSONE 10 MG TABLET (UD) PO SCH (09:27)
[2017-06-02] MEDS: FLUTICASONE PROP 0.05% 16 GM NASAL SPRAY NS SCH (09:27)
[2017-06-02] MEDS: GABAPENTIN 300 MG CAPSULE (FP) PO SCH ×2 (09:27→21:19)
[2017-06-02] MEDS: TIOTROPIUM BROMIDE 18 MCG/INH (DEVICE W/ 5 CAPSULES) IH SCH (09:27)
[2017-06-02] MEDS: LACTOBACILLUS ACIDOPHILUS 1 EACH TAB (FP) PO SCH (09:27)
[2017-06-02] MEDS: CHOLECALCIFEROL (VITAMIN D3) 1,000 UNIT TABLET (FP) PO SCH (09:28)
[2017-06-02] MEDS: METOPROLOL TARTRATE 25 MG TABLET (FP) PO SCH ×2 (09:28→21:19)
[2017-06-02] MEDS: BRIMONIDINE TARTRATE 0.15% OPHTHALMIC 5 ML BOTTLE OD SCH ×2 (09:28→21:17)
[2017-06-02] MEDS: SENNOSIDES 8.6MG TABLET (FP) PO SCH (09:28)
[2017-06-02] MEDS: RANITIDINE HCL 150 MG TABLET (FP) PO SCH ×2 (09:28→21:19)
--- NOTE | 2017-06-02 11:38 | PN ---
Progress Note (short form) - Note Progress Note: PULMONARY AWAKE/CLINICALLY IMPROVED VSS/ANICTERIC/PALE DIMINISHED BREATH SOUNDS S1S2 IRREGULAR BS+ NO EDEMA LABS/MEDS/NOTES/IMAGING/ABG REVIEWED A/P CHF Atrial Fibrillation LV Diastolic Dysfunction CAD HTN Hyperlipidemia - lasix increased to BID - steroids to be tapered - inhaled bronchodilators - rate controlled - monitor urine output Coleen STOKES MD
--- NOTE | 2017-06-02 12:56 | PN ---
Progress Note, Physician History of Present Illness: Pt states he is feeling well. Denies fever/chills or productive cough and is breathing well. Has no specific complaints. - Current Medication List Current Medications: Active Medications Acetaminophen (Tylenol -) 650 mg PO Q6H PRN PRN Reason: FEVER OR PAIN Last Admin: 05/19/17 00:53 Dose: 650 mg Al Hydroxide/Mg Hydroxide (Mylanta Oral Suspension -) 30 ml PO Q6H PRN PRN Reason: INDIGESTION Last Admin: 05/13/17 13:00 Dose: 30 ml Albuterol/Ipratropium (Duoneb -) 1 amp NEB Q4H PRN PRN Reason: SHORTNESS OF BREATH Last Admin: 05/21/17 10:38 Dose: 1 amp Amino Acids (Prosource No Carb Liquid Pkt) 30 ml PO BID@0800,1730 [facility] Last Admin: 06/02/17 08:42 Dose: 30 ml Ascorbic Acid (Vitamin C -) 500 mg PO HS [facility] Last Admin: 06/01/17 22:43 Dose: 500 mg Atorvastatin Calcium (Lipitor -) 10 mg PO HS [facility] Last Admin: 06/01/17 22:44 Dose: 10 mg Brimonidine Tartrate (Alphagan 0.15% -) 1 drop OD BID [facility] Last Admin: 06/02/17 09:28 Dose: 1 drop Cholecalciferol (Vitamin D3 -) 1,000 unit PO DAILY [facility] Last Admin: 06/02/17 09:28 Dose: 1,000 unit Docusate Sodium (Colace -) 200 mg PO HS [facility] Last Admin: 06/01/17 22:43 Dose: 200 mg Duloxetine HCl (Cymbalta -) 60 mg PO HS [facility] Last Admin: 06/01/17 22:43 Dose: 60 mg Fluticasone Propionate (Flonase -) 2 spray NS DAILY [facility] Last Admin: 06/02/17 09:27 Dose: 2 sprays Furosemide (Lasix -) 40 mg PO BID@0600,1400 [facility] Last Admin: 06/02/17 06:52 Dose: 40 mg Gabapentin (Neurontin -) 600 mg PO BID [facility] Last Admin: 06/02/17 09:27 Dose: 600 mg Lactobacillus Acidophilus (Bacid -) 1 tab PO DAILY [facility] Last Admin: 06/02/17 09:27 Dose: 1 tab Levothyroxine Sodium (Synthroid -) 50 mcg PO DAILY@0700 [facility] Last Admin: 06/02/17 06:52 Dose: 50 mcg Metoprolol Tartrate (Lopressor -) 25 mg PO BID [facility] Last Admin: 06/02/17 09:28 Dose: 25 mg Prednisone (Deltasone -) 10 mg PO DAILY [facility] Ranitidine HCl (Zantac -) 150 mg PO BID [facility] Last Admin: 06/02/17 09:28 Dose: 150 mg Senna (Senna -) 2 tab PO DAILY [facility] Last Admin: 06/02/17 09:28 Dose: 2 tab Tamsulosin HCl (Flomax -) 0.4 mg PO DAILY@0830 [facility] Last Admin: 06/02/17 08:42 Dose: 0.4 mg Tiotropium Peel (Spiriva -) 1 puff IH DAILY [facility] Last Admin: 06/02/17 09:27 Dose: 1 puff - Objective Vital Signs: Vital Signs Temperature 98.3 F 06/02/17 10:00 Pulse Rate 78 06/02/17 10:00 Respiratory Rate 18 06/02/17 10:00 Blood Pressure 155/67 06/02/17 10:00 O2 Sat by Pulse Oximetry (%) 100 06/02/17 09:00 Constitutional: Yes: No Distress Eyes: Yes: WNL HENT: Yes: Atraumatic Neck: Yes: Supple Cardiovascular: Yes: Pulse Irregular Respiratory: Yes: Diminished (slightly decreased breath sounds) Gastrointestinal: Yes: Normal Bowel Sounds, Soft Genitourinary: Yes: WNL Neurological: Yes: Alert Psychiatric: Yes: WNL Labs: CBC, BMP 06/01/17 07:00 06/01/17 07:00 Problem List - Problems (1) Acute respiratory failure Code(s): J96.00 - ACUTE RESPIRATORY FAILURE, UNSP W HYPOXIA OR HYPERCAPNIA Qualifiers: Respiratory failure complication: hypoxia and hypercapnia Qualified Code(s): J96.01 - Acute respiratory failure with hypoxia; J96.01 - Acute respiratory failure with hypoxia; J96.01 - Acute respiratory failure with hypoxia (2) CAD (coronary artery disease) Code(s): I25.10 - ATHSCL HEART DISEASE OF [place] CORONARY ARTERY W/O ANG PCTRS (3) Dysphagia causing pulmonary aspiration with swallowing Code(s): R13.19 - OTHER DYSPHAGIA (4) Shortness of breath Code(s): R06.02 - SHORTNESS OF BREATH (5) Aspiration pneumonia Code(s): J69.0 - PNEUMONITIS DUE TO INHALATION OF FOOD AND VOMIT (6) CHF (congestive heart failure) Code(s): I50.9 - HEART FAILURE, UNSPECIFIED Qualifiers: Congestive heart failure type: unspecified congestive heart failure type Congestive heart failure chronicity: chronic Qualified Code(s): I50.9 - Heart failure, unspecified; I50.9 - Heart failure, unspecified; I50.9 - Heart failure, unspecified; I50.9 - Heart failure, unspecified (7) Leukocytosis Code(s): D72.829 - ELEVATED WHITE BLOOD CELL COUNT, UNSPECIFIED Assessment/Plan wbc normal, pt afebrile/ without acute distress remains stable off antibiotics continue incentive spirometer aspiration precautions
--- NOTE | 2017-06-02 13:09 | PN ---
Progress Note, Physician History of Present Illness: doing well - Current Medication List Current Medications: Active Medications Acetaminophen (Tylenol -) 650 mg PO Q6H PRN PRN Reason: FEVER OR PAIN Last Admin: 05/19/17 00:53 Dose: 650 mg Al Hydroxide/Mg Hydroxide (Mylanta Oral Suspension -) 30 ml PO Q6H PRN PRN Reason: INDIGESTION Last Admin: 05/13/17 13:00 Dose: 30 ml Albuterol/Ipratropium (Duoneb -) 1 amp NEB Q4H PRN PRN Reason: SHORTNESS OF BREATH Last Admin: 05/21/17 10:38 Dose: 1 amp Amino Acids (Prosource No Carb Liquid Pkt) 30 ml PO BID@0800,1730 [facility] Last Admin: 06/02/17 08:42 Dose: 30 ml Ascorbic Acid (Vitamin C -) 500 mg PO HS [facility] Last Admin: 06/01/17 22:43 Dose: 500 mg Atorvastatin Calcium (Lipitor -) 10 mg PO [facility] Last Admin: 06/01/17 22:44 Dose: 10 mg Brimonidine Tartrate (Alphagan 0.15% -) 1 drop OD BID [facility] Last Admin: 06/02/17 09:28 Dose: 1 drop Cholecalciferol (Vitamin D3 -) 1,000 unit PO DAILY [facility] Last Admin: 06/02/17 09:28 Dose: 1,000 unit Docusate Sodium (Colace -) 200 mg PO HS [facility] Last Admin: 06/01/17 22:43 Dose: 200 mg Duloxetine HCl (Cymbalta -) 60 mg PO [facility] Last Admin: 06/01/17 22:43 Dose: 60 mg Fluticasone Propionate (Flonase -) 2 spray NS DAILY [facility] Last Admin: 06/02/17 09:27 Dose: 2 sprays Furosemide (Lasix -) 40 mg PO BID@0600,1400 [facility] Last Admin: 06/02/17 06:52 Dose: 40 mg Gabapentin (Neurontin -) 600 mg PO BID [facility] Last Admin: 06/02/17 09:27 Dose: 600 mg Lactobacillus Acidophilus (Bacid -) 1 tab PO DAILY [facility] Last Admin: 06/02/17 09:27 Dose: 1 tab Levothyroxine Sodium (Synthroid -) 50 mcg PO DAILY@0700 [facility] Last Admin: 06/02/17 06:52 Dose: 50 mcg Metoprolol Tartrate (Lopressor -) 25 mg PO BID [facility] Last Admin: 06/02/17 09:28 Dose: 25 mg Prednisone (Deltasone -) 10 mg PO DAILY [facility] Ranitidine HCl (Zantac -) 150 mg PO BID [facility] Last Admin: 06/02/17 09:28 Dose: 150 mg Senna (Senna -) 2 tab PO DAILY [facility] Last Admin: 06/02/17 09:28 Dose: 2 tab Tamsulosin HCl (Flomax -) 0.4 mg PO DAILY@0830 [facility] Last Admin: 06/02/17 08:42 Dose: 0.4 mg Tiotropium [place] (Spiriva -) 1 puff IH DAILY [facility] Last Admin: 06/02/17 09:27 Dose: 1 puff - Objective Vital Signs: Vital Signs Temperature 98.3 F 06/02/17 10:00 Pulse Rate 78 06/02/17 10:00 Respiratory Rate 18 06/02/17 10:00 Blood Pressure 155/67 06/02/17 10:00 O2 Sat by Pulse Oximetry (%) 100 06/02/17 09:00 Constitutional: Yes: No Distress HENT: Yes: Atraumatic Neck: Yes: Supple Cardiovascular: Yes: Regular Rate and Rhythm Respiratory: Yes: Rhonchi Gastrointestinal: Yes: Normal Bowel Sounds Extremities: Yes: WNL Neurological: Yes: Alert Labs: CBC, BMP 06/01/17 07:00 06/01/17 07:00 Problem List - Problems (1) HTN (hypertension) Assessment/Plan: on meds stable Code(s): I10 - ESSENTIAL (PRIMARY) HYPERTENSION (2) Hyperlipemia Assessment/Plan: on meds stable Code(s): E78.5 - HYPERLIPIDEMIA, UNSPECIFIED (3) Hypothyroidism Assessment/Plan: on meds Code(s): E03.9 - HYPOTHYROIDISM, UNSPECIFIED (4) PVD (peripheral vascular disease) Code(s): I73.9 - PERIPHERAL VASCULAR DISEASE, UNSPECIFIED (5) Pneumonia Assessment/Plan: completed abx course afebrile Code(s): J18.9 - PNEUMONIA, UNSPECIFIED ORGANISM Qualifiers: Laterality: right Lung location: lower lobe of lung Assessment/Plan Assessment/Plan (1) Community acquired pneumonia (2) Alkalosis, metabolic Code(s): E87.3 - ALKALOSIS (3) Atrial fibrillation Code(s): I48.91 - UNSPECIFIED ATRIAL FIBRILLATION Qualifiers: Atrial fibrillation type: chronic Qualified Code(s): I48.2 - Chronic atrial fibrillation (4) CHF (congestive heart failure) Code(s): I50.9 - HEART FAILURE, UNSPECIFIED Qualifiers: Congestive heart failure type: unspecified congestive heart failure type Congestive heart failure chronicity: chronic Qualified Code(s): I50.9 - Heart failure, unspecified (5) GERD (gastroesophageal reflux disease) Code(s): K21.9 - GASTRO-ESOPHAGEAL REFLUX DISEASE WITHOUT ESOPHAGITIS (6) HTN (hypertension) Code(s): I10 - ESSENTIAL (PRIMARY) HYPERTENSION (7) Hyperlipemia Code(s): E78.5 - HYPERLIPIDEMIA, UNSPECIFIED (8) Hypothyroidism Code(s): E03.9 - HYPOTHYROIDISM, UNSPECIFIED (9) PVD (peripheral vascular disease) Code(s): I73.9 - PERIPHERAL VASCULAR DISEASE, UNSPECIFIED awaiting placement covering for dr worthington
[2017-06-02] MEDS ORDERED: POTASSIUM CHLORIDE ORAL LIQUID 20 MEQ/15 ML PO ONE (16:24)
--- NOTE | 2017-06-02 16:29 | PN ---
Progress Note (short form) - Note Progress Note: cc: sob. s: no cp palps dizzy, sob better, eating better. alert today. Current Medications Acetaminophen (Tylenol -) 650 mg PO Q6H PRN PRN Reason: FEVER OR PAIN Last Admin: 05/19/17 00:53 Dose: 650 mg Al Hydroxide/Mg Hydroxide (Mylanta Oral Suspension -) 30 ml PO Q6H PRN PRN Reason: INDIGESTION Last Admin: 05/13/17 13:00 Dose: 30 ml Albuterol/Ipratropium (Duoneb -) 1 amp NEB Q4H PRN PRN Reason: SHORTNESS OF BREATH Last Admin: 05/21/17 10:38 Dose: 1 amp Amino Acids (Prosource No Carb Liquid Pkt) 30 ml PO BID@0800,1730 [facility] Last Admin: 06/02/17 08:42 Dose: 30 ml Ascorbic Acid (Vitamin C -) 500 mg PO HS [facility] Last Admin: 06/01/17 22:43 Dose: 500 mg Atorvastatin Calcium (Lipitor -) 10 mg PO HS [facility] Last Admin: 06/01/17 22:44 Dose: 10 mg Brimonidine Tartrate (Alphagan 0.15% -) 1 drop OD BID [facility] Last Admin: 06/02/17 09:28 Dose: 1 drop Cholecalciferol (Vitamin D3 -) 1,000 unit PO DAILY [facility] Last Admin: 06/02/17 09:28 Dose: 1,000 unit Docusate Sodium (Colace -) 200 mg PO HS [facility] Last Admin: 06/01/17 22:43 Dose: 200 mg Duloxetine HCl (Cymbalta -) 60 mg PO [facility] Last Admin: 06/01/17 22:43 Dose: 60 mg Fluticasone Propionate (Flonase -) 2 spray NS DAILY [facility] Last Admin: 06/02/17 09:27 Dose: 2 sprays Furosemide (Lasix -) 40 mg PO BID@0600,1400 [facility] Last Admin: 06/02/17 14:09 Dose: 40 mg Gabapentin (Neurontin -) 600 mg PO BID [facility] Last Admin: 06/02/17 09:27 Dose: 600 mg Lactobacillus Acidophilus (Bacid -) 1 tab PO DAILY [facility] Last Admin: 06/02/17 09:27 Dose: 1 tab Levothyroxine Sodium (Synthroid -) 50 mcg PO DAILY@0700 [facility] Last Admin: 06/02/17 06:52 Dose: 50 mcg Metoprolol Tartrate (Lopressor -) 25 mg PO BID [facility] Last Admin: 06/02/17 09:28 Dose: 25 mg Prednisone (Deltasone -) 10 mg PO DAILY [facility] Ranitidine HCl (Zantac -) 150 mg PO BID [facility] Last Admin: 06/02/17 09:28 Dose: 150 mg Senna (Senna -) 2 tab PO DAILY [facility] Last Admin: 06/02/17 09:28 Dose: 2 tab Tamsulosin HCl (Flomax -) 0.4 mg PO DAILY@0830 [facility] Last Admin: 06/02/17 08:42 Dose: 0.4 mg Tiotropium [place] (Spiriva -) 1 puff IH DAILY [facility] Last Admin: 06/02/17 09:27 Dose: 1 puff Vital Signs - 24 hr 06/01/17 06/01/17 06/01/17 17:36 20:41 22:00 Temperature 98.3 F 98 F Pulse Rate 65 68 Respiratory 20 20 Rate Blood Pressure 150/71 132/63 O2 Sat by Pulse 95 Oximetry (%) 06/02/17 06/02/17 06/02/17 07:34 09:00 10:00 Temperature 98.2 F 98.3 F Pulse Rate 68 78 Respiratory 18 18 Rate Blood Pressure 154/70 155/67 O2 Sat by Pulse 100 Oximetry (%) 06/02/17 06/02/17 14:05 14:11 Temperature 98.2 F Pulse Rate 62 70 Respiratory 16 Rate Blood Pressure 126/54 O2 Sat by Pulse 97 Oximetry (%) Intake & Output 05/31/17 06/01/17 06/02/17 06/03/17 07:59 07:59 07:59 07:59 Intake Total 250 1270 250 200 Output Total 3783 820 3529 Balance -1625 770 -1000 200 Weight 171 lb 5 oz Constitutional: Yes: No Distress, Calm Cardiovascular: Yes: irregular Rate and Rhythm, S1, S2. No: Gallop, Murmur Respiratory: Yes:bibasilar dullness. poor effort No: Accessory Muscle Use Extremities: No: Cold Edema: trace dependent edema of sacrum Neurological: Yes: alert today, conversational. No: Seizure Psychiatric: No: Agitated no jaundice diaphoresis Labs: no CBC, BMP echo 05/2017: mild, global LV hypo; nl RV; mild MR; mild ao root dilation (no RVSP) echo 10/2016: low nl lvef, nl lv size, nl rv, mild elena, mild mr/tr, rvsp 40-50 mibi 10/2016: no ischemia head ct 05/14: chronic rt cerebellar infarct, no acute pathology. a/p: 86 Y/O Gentleman with a PMhx that includes CKD, CAD s/p pci to rca 2004 ( patent on cath 2006), PVD s/p le bypass/stents/amputations, HTN, Afib on AC, here with sob, weakness found to have pna. fatigue, sob: -bnp high, but outpt lasix has not improved his sxs and here with no signs of vol overload so does not seem that chf causing his sxs. -imaging shows pna, mucus plugs, possibly aspirating, was on abx, steroids per ID/pulm-->symptomatically improving afib: - had been on pradaxa but was switched to lovenox while unable to take po. - 05/21 Now able to take po but with hematuria and hgb/platelets low so lovenox has been stopped for now. following - lovenox held after pt with persistent hematuria --> resume AC when ok per . - rate controlled, cont low dose bb cad s/p remote pci: -stable -no signs acs -off AC as above. con't statin. has been off bb/acei due to low bp as outpt, but started BB here for AF chronic diastolic chf: -bnp 23K (baseline 8-10K) -05/13: has been on lasix 40 po daily, wts ranging 151-157 here, suspect JVD on exam though he is asymptomatic. cxr 05/12 with mild incr interstl markings ? mild chf. given lasix 40mg IVP x 1 - 05/14: bp drop after lasix. today bicarb up to 38 and lethargic (baseline unknown to me). Would hold po lasix tomorrow, monitor for when to resume. K 4.5 , mg 2.5. can stop standing repletion. -05/15-: no signs vol overload, cont to hold home lasix - 05/20-: no signs vol overload thus far, cont to hold home lasix -05/30: eating better now and starting to have some edema, will resume lasix 40 po qd - 05/31 lasix uptitrated to 40 mg bid. monitor bicarb (40 today), pulm following. Repeat pa/lat cxr tomorrow. unclear if edema from volume overload or third spacing from low albumin. - 06/02: pa/lat cxr yesterday without sig change. lasix bid continues with improvement in edema and sob. bicarb rising, will replete k and repeat bmp tomorrow. pulm following. htn: -stable, cont current meds. hld: -cont home statin,
[2017-06-02] MEDS: DOCUSATE SODIUM 100 MG CAPSULE (FP) PO SCH (21:18)
[2017-06-02] MEDS: ASCORBIC ACID 500 MG TABLET (FP) PO SCH (21:19)
[2017-06-02] MEDS: DULoxetine HCL 30 MG CAPSULE.DR (FP) PO SCH (21:19)
[2017-06-02] MEDS: ATORVASTATIN CA 10 MG TABLET (FP) PO SCH (21:19)
[2017-06-03] MEDS: FUROSEMIDE 40 MG TABLET (FP) PO SCH (06:23)
[2017-06-03] MEDS: LEVOTHYROXINE NA 50 MCG TABLET (FP) PO SCH (06:23)
[2017-06-03] MEDS: AMINO ACIDS/PROTEIN HYDROLYS 30 ML LIQUID.PKT PO SCH ×2 (08:06→18:17)
[2017-06-03] MEDS: TAMSULOSIN HCL 0.4 MG CAP.ER.24H (FP) PO SCH (08:06)
[2017-06-03 08:21] LABS: CALCIUM 8.7 mg/dL (8.5-10.1); CREATININE 0.6 mg/dL (0.7-1.3); GLUCOSE,RANDOM 84 mg/dL (74-106)
[2017-06-03 09:06] LABS: ANION GAP 3 (8-16); CO2 44 mmol/L (21-32)
--- NOTE | 2017-06-03 09:45 | PN ---
Progress Note (short form) - Note Progress Note: Neurology 86 year old male who presented with shortness of breath and weakness that had been progressive over several days with decreased exercise tolerance and evolving to shortness of breath at rest. He has been getting treatment for PNA and admitted for further treatment. Neurologically, I was consulted for altered mental status. CT head completed and did not show acute changes. 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 Rechecked on patient, calm, comfortable, able to tell me he's at [facility], knows his own name, knows it's June (at first said 2006, but self corrected to 2016). Appears to be near baseline mental status. Active Medications Acetaminophen (Tylenol -) 650 mg PO Q6H PRN PRN Reason: FEVER OR PAIN Last Admin: 05/19/17 00:53 Dose: 650 mg Al Hydroxide/Mg Hydroxide (Mylanta Oral Suspension -) 30 ml PO Q6H PRN PRN Reason: INDIGESTION Last Admin: 05/13/17 13:00 Dose: 30 ml Albuterol/Ipratropium (Duoneb -) 1 amp NEB Q4H PRN PRN Reason: SHORTNESS OF BREATH Last Admin: 05/21/17 10:38 Dose: 1 amp Amino Acids (Prosource No Carb Liquid Pkt) 30 ml PO BID@0800,1730 [facility] Last Admin: 06/03/17 08:06 Dose: 30 ml Ascorbic Acid (Vitamin C -) 500 mg PO HS [facility] Last Admin: 06/02/17 21:19 Dose: 500 mg Atorvastatin Calcium (Lipitor -) 10 mg PO [facility] Last Admin: 06/02/17 21:19 Dose: 10 mg Brimonidine Tartrate (Alphagan 0.15% -) 1 drop OD BID [facility] Last Admin: 06/02/17 21:17 Dose: 1 drop Cholecalciferol (Vitamin D3 -) 1,000 unit PO DAILY [facility] Last Admin: 06/02/17 09:28 Dose: 1,000 unit Docusate Sodium (Colace -) 200 mg PO HS [facility] Last Admin: 06/02/17 21:18 Dose: 200 mg Duloxetine HCl (Cymbalta -) 60 mg PO [facility] Last Admin: 06/02/17 21:19 Dose: 60 mg Fluticasone Propionate (Flonase -) 2 spray NS DAILY [facility] Last Admin: 06/02/17 09:27 Dose: 2 sprays Furosemide (Lasix -) 40 mg PO BID@0600,1400 [facility] Last Admin: 06/03/17 06:23 Dose: 40 mg Gabapentin (Neurontin -) 600 mg PO BID [facility] Last Admin: 06/02/17 21:19 Dose: 600 mg Lactobacillus Acidophilus (Bacid -) 1 tab PO DAILY [facility] Last Admin: 06/02/17 09:27 Dose: 1 tab Levothyroxine Sodium (Synthroid -) 50 mcg PO DAILY@0700 [facility] Last Admin: 06/03/17 06:23 Dose: 50 mcg Metoprolol Tartrate (Lopressor -) 25 mg PO BID [facility] Last Admin: 06/02/17 21:19 Dose: 25 mg Prednisone (Deltasone -) 10 mg PO DAILY [facility] Ranitidine HCl (Zantac -) 150 mg PO BID [facility] Last Admin: 06/02/17 21:19 Dose: 150 mg Senna (Senna -) 2 tab PO DAILY [facility] Last Admin: 06/02/17 09:28 Dose: 2 tab Tamsulosin HCl (Flomax -) 0.4 mg PO DAILY@0830 [facility] Last Admin: 06/03/17 08:06 Dose: 0.4 mg Tiotropium [place] (Spiriva -) 1 puff IH DAILY [facility] Last Admin: 06/02/17 09:27 Dose: 1 puff Physical Examination Vital Signs Temperature 97 F L 06/03/17 07:11 Pulse Rate 69 06/03/17 07:11 Respiratory Rate 18 06/03/17 07:11 Blood Pressure 139/73 06/03/17 07:11 O2 Sat by Pulse Oximetry (%) 99 06/02/17 20:36 Constitutional: Yes: Well Nourished, No Distress, Calm Eyes: Yes: Conjunctiva Clear, EOM Intact, PERRL Cardiovascular: Yes: Regular Rate and Rhythm. No: Gallop, Murmur, Rub Respiratory: Yes: Regular, CTA Bilaterally. No: Rales, Rhonchi, Wheezes Gastrointestinal: Yes: Normal Bowel Sounds, Soft. No: Distention, Tenderness Extremities: Yes: WNL Neuro: Awake, cooperative, CN appear intact, no facial droop, difficult to assess dysarthria, moving extremities grossly but not participating in confrontation testing, sensory intact CBCD WBC 7.6 K/mm3 (4.0-10.0) 06/01/17 07:00 RBC 2.91 M/mm3 (4.00-5.60) L 06/01/17 07:00 Hgb 9.6 GM/dL (11.7-16.9) L 06/01/17 07:00 Hct 29.1 % (35.4-49) L 06/01/17 07:00 MCV 100.2 fl (80-96) H 06/01/17 07:00 MCHC 32.9 g/dl (32.0-35.9) 06/01/17 07:00 RDW 18.3 % (11.9-15.9) H 06/01/17 07:00 Plt Count 98 K/MM3 (134-434) L 06/01/17 07:00 MPV 9.8 fl (7.5-11.1) 06/01/17 07:00 CMP Sodium 140 mmol/L (136-145) 06/03/17 07:00 Potassium 3.8 mmol/L (3.5-5.1) 06/03/17 07:00 Chloride 93 mmol/L (98-107) L 06/03/17 07:00 Carbon Dioxide 44 mmol/L (21-32) H 06/03/17 07:00 Anion Gap 3 (8-16) L 06/03/17 07:00 BUN 27 mg/dL (7-18) H 06/03/17 07:00 Creatinine 0.6 mg/dL (0.7-1.3) L 06/03/17 07:00 Creat Clearance w eGFR > 60 (>60) 05/27/17 06:00 Calcium 8.7 mg/dL (8.5-10.1) 06/03/17 07:00 Total Bilirubin 0.7 mg/dL (0.2-1.0) 06/01/17 07:00 AST 16 U/L (15-37) D 06/01/17 07:00 ALT 18 U/L (12-78) 06/01/17 07:00 Alkaline Phosphatase 45 U/L (45-117) 06/01/17 07:00 Total Protein 5.7 g/dl (6.4-8.2) L 06/01/17 07:00 Albumin 2.7 g/dl (3.4-5.0) L 06/01/17 07:00 Imaging - Results Chest X-ray: Report Reviewed, Image Reviewed CT head reviewed Plan: 86 year old male who presented with shortness of breath and weakness that had been progressive over several days with decreased exercise tolerance and evolving to shortness of breath at rest. He has been getting treatment for PNA and admitted for further treatment. Neurologically, I was consulted for altered mental status which has gradually improved. CT head reviewed. No longer on Abx Mental status improved and likely at baseline Monitor Blood pressure, avoid episodes of HTN or hypotension Medical optimization Monitor for
[2017-06-03] MEDS ORDERED: PT OWN MED DRAWER 7, Y5N ONE ×3 (10:03→17:32)
[2017-06-03] MEDS: RANITIDINE HCL 150 MG TABLET (FP) PO SCH ×2 (10:05→22:30)
[2017-06-03] MEDS: CHOLECALCIFEROL (VITAMIN D3) 1,000 UNIT TABLET (FP) PO SCH (10:05)
[2017-06-03] MEDS: GABAPENTIN 300 MG CAPSULE (FP) PO SCH ×2 (10:05→22:29)
[2017-06-03] MEDS: predniSONE 10 MG TABLET (UD) PO SCH (10:05)
[2017-06-03] MEDS: LACTOBACILLUS ACIDOPHILUS 1 EACH TAB (FP) PO SCH (10:05)
[2017-06-03] MEDS: SENNOSIDES 8.6MG TABLET (FP) PO SCH (10:05)
[2017-06-03] MEDS: METOPROLOL TARTRATE 25 MG TABLET (FP) PO SCH ×2 (10:06→22:29)
[2017-06-03] MEDS: BRIMONIDINE TARTRATE 0.15% OPHTHALMIC 5 ML BOTTLE OD SCH ×2 (10:06→22:30)
[2017-06-03] MEDS: FLUTICASONE PROP 0.05% 16 GM NASAL SPRAY NS SCH (10:10)
[2017-06-03] MEDS: TIOTROPIUM BROMIDE 18 MCG/INH (DEVICE W/ 5 CAPSULES) IH SCH (10:10)
--- NOTE | 2017-06-03 10:42 | PN ---
Progress Note, Physician Chief Complaint: Mr Rivas says he is feeling well today. Denies cp, sob, n/v. At baseline - Current Medication List Current Medications: Active Medications Acetaminophen (Tylenol -) 650 mg PO Q6H PRN PRN Reason: FEVER OR PAIN Last Admin: 05/19/17 00:53 Dose: 650 mg Al Hydroxide/Mg Hydroxide (Mylanta Oral Suspension -) 30 ml PO Q6H PRN PRN Reason: INDIGESTION Last Admin: 05/13/17 13:00 Dose: 30 ml Albuterol/Ipratropium (Duoneb -) 1 amp NEB Q4H PRN PRN Reason: SHORTNESS OF BREATH Last Admin: 05/21/17 10:38 Dose: 1 amp Amino Acids (Prosource No Carb Liquid Pkt) 30 ml PO BID@0800,1730 [facility] Last Admin: 06/03/17 08:06 Dose: 30 ml Ascorbic Acid (Vitamin C -) 500 mg PO HS [facility] Last Admin: 06/02/17 21:19 Dose: 500 mg Atorvastatin Calcium (Lipitor -) 10 mg PO HS [facility] Last Admin: 06/02/17 21:19 Dose: 10 mg Brimonidine Tartrate (Alphagan 0.15% -) 1 drop OD BID [facility] Last Admin: 06/03/17 10:06 Dose: 1 drop Cholecalciferol (Vitamin D3 -) 1,000 unit PO DAILY [facility] Last Admin: 06/03/17 10:05 Dose: 1,000 unit Docusate Sodium (Colace -) 200 mg PO HS [facility] Last Admin: 06/02/17 21:18 Dose: 200 mg Duloxetine HCl (Cymbalta -) 60 mg PO HS [facility] Last Admin: 06/02/17 21:19 Dose: 60 mg Fluticasone Propionate (Flonase -) 2 spray NS DAILY [facility] Last Admin: 06/03/17 10:10 Dose: 2 sprays Furosemide (Lasix -) 40 mg PO BID@0600,1400 [facility] Last Admin: 06/03/17 06:23 Dose: 40 mg Gabapentin (Neurontin -) 600 mg PO BID [facility] Last Admin: 06/03/17 10:05 Dose: 600 mg Lactobacillus Acidophilus (Bacid -) 1 tab PO DAILY [facility] Last Admin: 06/03/17 10:05 Dose: 1 tab Levothyroxine Sodium (Synthroid -) 50 mcg PO DAILY@0700 [facility] Last Admin: 06/03/17 06:23 Dose: 50 mcg Metoprolol Tartrate (Lopressor -) 25 mg PO BID [facility] Last Admin: 06/03/17 10:06 Dose: 25 mg Prednisone (Deltasone -) 10 mg PO DAILY [facility] Last Admin: 06/03/17 10:05 Dose: 10 mg Ranitidine HCl (Zantac -) 150 mg PO BID [facility] Last Admin: 06/03/17 10:05 Dose: 150 mg Senna (Senna -) 2 tab PO DAILY [facility] Last Admin: 06/03/17 10:05 Dose: 2 tab Tamsulosin HCl (Flomax -) 0.4 mg PO DAILY@0830 [facility] Last Admin: 06/03/17 08:06 Dose: 0.4 mg Tiotropium [place] (Spiriva -) 1 puff IH DAILY [facility] Last Admin: 06/03/17 10:10 Dose: 1 puff - Objective Vital Signs: Vital Signs Temperature 36.1 C L 06/03/17 07:11 Pulse Rate 92 H 06/03/17 10:20 Respiratory Rate 18 06/03/17 07:11 Blood Pressure 139/73 06/03/17 07:11 O2 Sat by Pulse Oximetry (%) 92 L 06/03/17 10:20 Constitutional: Yes: Well Nourished, No Distress, Calm Cardiovascular: Yes: Regular Rate and Rhythm. No: Gallop, Murmur, Rub Respiratory: Yes: Regular, CTA Bilaterally. No: Rales, Rhonchi, Wheezes Gastrointestinal: Yes: Normal Bowel Sounds, Soft. No: Distention, Tenderness Extremities: Yes: WNL Edema: No Labs: CBC, BMP 06/01/17 07:00 06/03/17 07:00 Problem List - Problems (1) Pneumonia Code(s): J18.9 - PNEUMONIA, UNSPECIFIED ORGANISM Qualifiers: Laterality: right Lung location: lower lobe of lung (2) Alkalosis, metabolic Code(s): E87.3 - ALKALOSIS (3) Atrial fibrillation Code(s): I48.91 - UNSPECIFIED ATRIAL FIBRILLATION Qualifiers: Atrial fibrillation type: chronic Qualified Code(s): I48.2 - Chronic atrial fibrillation; I48.2 - Chronic atrial fibrillation; I48.2 - Chronic atrial fibrillation; I48.2 - Chronic atrial fibrillation (4) CHF (congestive heart failure) Code(s): I50.9 - HEART FAILURE, UNSPECIFIED Qualifiers: Congestive heart failure type: unspecified congestive heart failure type Congestive heart failure chronicity: chronic Qualified Code(s): I50.9 - Heart failure, unspecified; I50.9 - Heart failure, unspecified; I50.9 - Heart failure, unspecified; I50.9 - Heart failure, unspecified (5) GERD (gastroesophageal reflux disease) Code(s): K21.9 - GASTRO-ESOPHAGEAL REFLUX DISEASE WITHOUT ESOPHAGITIS (6) HTN (hypertension) Code(s): I10 - ESSENTIAL (PRIMARY) HYPERTENSION (7) Hyperlipemia Code(s): E78.5 - HYPERLIPIDEMIA, UNSPECIFIED (8) Hypothyroidism Code(s): E03.9 - HYPOTHYROIDISM, UNSPECIFIED (9) PVD (peripheral vascular disease) Code(s): I73.9 - PERIPHERAL VASCULAR DISEASE, UNSPECIFIED (10) Acute respiratory failure Code(s): J96.00 - ACUTE RESPIRATORY FAILURE, UNSP W HYPOXIA OR HYPERCAPNIA Qualifiers: Respiratory failure complication: hypoxia and hypercapnia Qualified Code(s): J96.01 - Acute respiratory failure with hypoxia; J96.01 - Acute respiratory failure with hypoxia; J96.01 - Acute respiratory failure with hypoxia (11) Acute respiratory acidosis Code(s): E87.2 - ACIDOSIS (12) Hematuria Code(s): R31.9 - HEMATURIA, UNSPECIFIED Assessment/Plan (1) Community acquired pneumonia Assessment/Plan: -finished course of merrem -chest x-ray repeated and no sign of recurrent pneumonia (2) Respiratory acidosis Assessment/Plan: -pulmonary following Code(s): (3) Atrial fibrillation Assessment/Plan: -rate controlled -continue metoprolol -d/rigo anticoagulants secondary to hematuria requiring transfusion Code(s): I48.91 - UNSPECIFIED ATRIAL FIBRILLATION Qualifiers: Atrial fibrillation type: chronic Qualified Code(s): I48.2 - Chronic atrial fibrillation (4) CHF (congestive heart failure) Assessment/Plan: -currently on lasix bid -bicarb is increasing -may benefit from decreasing lasix to daily -will d/w cardiology Code(s): I50.9 - HEART FAILURE, UNSPECIFIED Qualifiers: Congestive heart failure type: unspecified congestive heart failure type Congestive heart failure chronicity: chronic Qualified Code(s): I50.9 - Heart failure, unspecified (5) GERD (gastroesophageal reflux disease) Assessment/Plan: -continue zantac Code(s): K21.9 - GASTRO-ESOPHAGEAL REFLUX DISEASE WITHOUT ESOPHAGITIS (6) HTN (hypertension) Assessment/Plan: -controlled Code(s): I10 - ESSENTIAL (PRIMARY) HYPERTENSION (7) Hyperlipemia Assessment/Plan: -continue lipitor -hold fenofibrate secondary to inability to crush Code(s): E78.5 - HYPERLIPIDEMIA, UNSPECIFIED (8) Hypothyroidism Assessment/Plan: -continue synthroid Code(s): E03.9 - HYPOTHYROIDISM, UNSPECIFIED (9) PVD (peripheral vascular disease) Assessment/Plan: -holding lovenox -does not complain of claudication Code(s): I73.9 - PERIPHERAL VASCULAR DISEASE, UNSPECIFIED (10) Urinary retention -hematuria resolved -nelson removed and urinating -continue flomax (11) Metabolic encephalopathy -resolved (12) Acute respiratory failure -resolved -pulmonary following (13) Uremia -back to baseline (14) Anemia -transfused with good response -monitor (15) Thrombocytopenia -resolved -secondary to sepsis -HIT antibodies negative (16) Hematuria -resolved -continue holding anticoagulant Dispo -plan for discharge tomorrow
--- NOTE | 2017-06-03 12:55 | PN ---
Progress Note, Physician History of Present Illness: doing much better no issues in room patient awake and alert - Current Medication List Current Medications: Active Medications Acetaminophen (Tylenol -) 650 mg PO Q6H PRN PRN Reason: FEVER OR PAIN Last Admin: 05/19/17 00:53 Dose: 650 mg Al Hydroxide/Mg Hydroxide (Mylanta Oral Suspension -) 30 ml PO Q6H PRN PRN Reason: INDIGESTION Last Admin: 05/13/17 13:00 Dose: 30 ml Albuterol/Ipratropium (Duoneb -) 1 amp NEB Q4H PRN PRN Reason: SHORTNESS OF BREATH Last Admin: 05/21/17 10:38 Dose: 1 amp Amino Acids (Prosource No Carb Liquid Pkt) 30 ml PO BID@0800,1730 [facility] Last Admin: 06/03/17 08:06 Dose: 30 ml Ascorbic Acid (Vitamin C -) 500 mg PO HS [facility] Last Admin: 06/02/17 21:19 Dose: 500 mg Atorvastatin Calcium (Lipitor -) 10 mg PO [facility] Last Admin: 06/02/17 21:19 Dose: 10 mg Brimonidine Tartrate (Alphagan 0.15% -) 1 drop OD BID [facility] Last Admin: 06/03/17 10:06 Dose: 1 drop Cholecalciferol (Vitamin D3 -) 1,000 unit PO DAILY [facility] Last Admin: 06/03/17 10:05 Dose: 1,000 unit Docusate Sodium (Colace -) 200 mg PO HS [facility] Last Admin: 06/02/17 21:18 Dose: 200 mg Duloxetine HCl (Cymbalta -) 60 mg PO [facility] Last Admin: 06/02/17 21:19 Dose: 60 mg Fluticasone Propionate (Flonase -) 2 spray NS DAILY [facility] Last Admin: 06/03/17 10:10 Dose: 2 sprays Furosemide (Lasix -) 40 mg PO DAILY [facility] Gabapentin (Neurontin -) 600 mg PO BID [facility] Last Admin: 06/03/17 10:05 Dose: 600 mg Lactobacillus Acidophilus (Bacid -) 1 tab PO DAILY [facility] Last Admin: 06/03/17 10:05 Dose: 1 tab Levothyroxine Sodium (Synthroid -) 50 mcg PO DAILY@0700 [facility] Last Admin: 06/03/17 06:23 Dose: 50 mcg Metoprolol Tartrate (Lopressor -) 25 mg PO BID [facility] Last Admin: 06/03/17 10:06 Dose: 25 mg Prednisone (Deltasone -) 10 mg PO DAILY [facility] Last Admin: 06/03/17 10:05 Dose: 10 mg Ranitidine HCl (Zantac -) 150 mg PO BID [facility] Last Admin: 06/03/17 10:05 Dose: 150 mg Senna (Senna -) 2 tab PO DAILY [facility] Last Admin: 06/03/17 10:05 Dose: 2 tab Tamsulosin HCl (Flomax -) 0.4 mg PO DAILY@0830 [facility] Last Admin: 06/03/17 08:06 Dose: 0.4 mg Tiotropium [place] (Spiriva -) 1 puff IH DAILY [facility] Last Admin: 06/03/17 10:10 Dose: 1 puff - Objective Vital Signs: Vital Signs Temperature 97 F L 06/03/17 07:11 Pulse Rate 92 H 06/03/17 10:20 Respiratory Rate 18 06/03/17 07:11 Blood Pressure 139/73 06/03/17 07:11 O2 Sat by Pulse Oximetry (%) 92 L 06/03/17 10:20 Constitutional: Yes: No Distress, Calm Cardiovascular: Yes: Regular Rate and Rhythm Respiratory: Yes: Regular, CTA Bilaterally Gastrointestinal: Yes: Normal Bowel Sounds, Soft Musculoskeletal: Yes: WNL Extremities: Yes: WNL Neurological: Yes: Alert, Oriented Psychiatric: Yes: Alert, Oriented Labs: CBC, BMP 06/01/17 07:00 06/03/17 07:00 Assessment/Plan Problem List - Problems (1) Pneumonia Code(s): J18.9 - PNEUMONIA, UNSPECIFIED ORGANISM Qualifiers: Laterality: right Lung location: lower lobe of lung (2) Alkalosis, metabolic Code(s): E87.3 - ALKALOSIS (3) Atrial fibrillation Code(s): I48.91 - UNSPECIFIED ATRIAL FIBRILLATION Qualifiers: Atrial fibrillation type: chronic Qualified Code(s): I48.2 - Chronic atrial fibrillation (4) CHF (congestive heart failure) Code(s): I50.9 - HEART FAILURE, UNSPECIFIED Qualifiers: Congestive heart failure type: unspecified congestive heart failure type Congestive heart failure chronicity: chronic Qualified Code(s): I50.9 - Heart failure, unspecified (5) GERD (gastroesophageal reflux disease) Code(s): K21.9 - GASTRO-ESOPHAGEAL REFLUX DISEASE WITHOUT ESOPHAGITIS (6) HTN (hypertension) Code(s): I10 - ESSENTIAL (PRIMARY) HYPERTENSION (7) Hyperlipemia Code(s): E78.5 - HYPERLIPIDEMIA, UNSPECIFIED (8) Hypothyroidism Code(s): E03.9 - HYPOTHYROIDISM, UNSPECIFIED (9) PVD (peripheral vascular disease) Code(s): I73.9 - PERIPHERAL VASCULAR DISEASE, UNSPECIFIED Assessment/Plan (1) Community acquired pneumonia (2) Alkalosis, metabolic Code(s): E87.3 - ALKALOSIS (3) Atrial fibrillation Code(s): I48.91 - UNSPECIFIED ATRIAL FIBRILLATION Qualifiers: Atrial fibrillation type: chronic Qualified Code(s): I48.2 - Chronic atrial fibrillation (4) CHF (congestive heart failure) Code(s): I50.9 - HEART FAILURE, UNSPECIFIED Qualifiers: Congestive heart failure type: unspecified congestive heart failure type Congestive heart failure chronicity: chronic Qualified Code(s): I50.9 - Heart failure, unspecified (5) GERD (gastroesophageal reflux disease) Code(s): K21.9 - GASTRO-ESOPHAGEAL REFLUX DISEASE WITHOUT ESOPHAGITIS (6) HTN (hypertension) Code(s): I10 - ESSENTIAL (PRIMARY) HYPERTENSION (7) Hyperlipemia Code(s): E78.5 - HYPERLIPIDEMIA, UNSPECIFIED (8) Hypothyroidism Code(s): E03.9 - HYPOTHYROIDISM, UNSPECIFIED (9) PVD (peripheral vascular disease) Code(s): I73.9 - PERIPHERAL VASCULAR DISEASE, UNSPECIFIED wbc trending down plan stable off of abx continue monitoring physio rest as per primary team
--- NOTE | 2017-06-03 14:14 | PN ---
Progress Note (short form) - Note Progress Note: Resting in NAD. No acute events overnight. No CP or SOB. Intake & Output 05/31/17 06/01/17 06/02/17 06/03/17 23:59 23:59 23:59 23:59 Intake Total 1270 100 350 550 Output Total 675 1000 550 600 Balance 595 -900 -200 -50 Weight 171 lb 5 oz 168 lb 5 oz Last Vital Signs Temp Pulse Resp BP Pulse Ox 97 F L 92 H 18 139/73 92 L 06/03/17 07:11 06/03/17 10:20 06/03/17 07:11 06/03/17 07:11 06/03/17 10:20 Active Medications Acetaminophen (Tylenol -) 650 mg PO Q6H PRN PRN Reason: FEVER OR PAIN Last Admin: 05/19/17 00:53 Dose: 650 mg Al Hydroxide/Mg Hydroxide (Mylanta Oral Suspension -) 30 ml PO Q6H PRN PRN Reason: INDIGESTION Last Admin: 05/13/17 13:00 Dose: 30 ml Albuterol/Ipratropium (Duoneb -) 1 amp NEB Q4H PRN PRN Reason: SHORTNESS OF BREATH Last Admin: 05/21/17 10:38 Dose: 1 amp Amino Acids (Prosource No Carb Liquid Pkt) 30 ml PO BID@0800,1730 [facility] Last Admin: 06/03/17 08:06 Dose: 30 ml Ascorbic Acid (Vitamin C -) 500 mg PO HS [facility] Last Admin: 06/02/17 21:19 Dose: 500 mg Atorvastatin Calcium (Lipitor -) 10 mg PO [facility] Last Admin: 06/02/17 21:19 Dose: 10 mg Brimonidine Tartrate (Alphagan 0.15% -) 1 drop OD BID [facility] Last Admin: 06/03/17 10:06 Dose: 1 drop Cholecalciferol (Vitamin D3 -) 1,000 unit PO DAILY [facility] Last Admin: 06/03/17 10:05 Dose: 1,000 unit Docusate Sodium (Colace -) 200 mg PO [facility] Last Admin: 06/02/17 21:18 Dose: 200 mg Duloxetine HCl (Cymbalta -) 60 mg PO [facility] Last Admin: 06/02/17 21:19 Dose: 60 mg Fluticasone Propionate (Flonase -) 2 spray NS DAILY [facility] Last Admin: 06/03/17 10:10 Dose: 2 sprays Furosemide (Lasix -) 40 mg PO DAILY [facility] Gabapentin (Neurontin -) 600 mg PO BID [facility] Last Admin: 06/03/17 10:05 Dose: 600 mg Lactobacillus Acidophilus (Bacid -) 1 tab PO DAILY [facility] Last Admin: 06/03/17 10:05 Dose: 1 tab Levothyroxine Sodium (Synthroid -) 50 mcg PO DAILY@0700 [facility] Last Admin: 06/03/17 06:23 Dose: 50 mcg Metoprolol Tartrate (Lopressor -) 25 mg PO BID [facility] Last Admin: 06/03/17 10:06 Dose: 25 mg Prednisone (Deltasone -) 10 mg PO DAILY [facility] Last Admin: 06/03/17 10:05 Dose: 10 mg Ranitidine HCl (Zantac -) 150 mg PO BID [facility] Last Admin: 06/03/17 10:05 Dose: 150 mg Senna (Senna -) 2 tab PO DAILY [facility] Last Admin: 06/03/17 10:05 Dose: 2 tab Tamsulosin HCl (Flomax -) 0.4 mg PO DAILY@0830 [facility] Last Admin: 06/03/17 08:06 Dose: 0.4 mg Tiotropium [place] (Spiriva -) 1 puff IH DAILY [facility] Last Admin: 06/03/17 10:10 Dose: 1 puff Gen: NAD at rest Heart: RRR Lung: decreased breath sounds at the bases Abd: soft, nontender Ext: no edema Laboratory Results - last 24 hr 06/03/17 07:00 Sodium 140 Potassium 3.8 Chloride 93 L Carbon Dioxide 44 H Anion Gap 3 L BUN 27 H Creatinine 0.6 L Random Glucose 84 Calcium 8.7 A/P Pneumonia Atrial Fibrillation LV Diastolic Dysfunction CAD HTN Hyperlipidemia - Off ABX at present - prednisone taper - inhaled bronchodilators - Off AC due to hematuria - D/C planning Dr Boo
[2017-06-03] MEDS ORDERED: POTASSIUM CHLORIDE ORAL LIQUID 20 MEQ/15 ML PO ONE (18:25)
[2017-06-03] MEDS: DOCUSATE SODIUM 100 MG CAPSULE (FP) PO SCH (22:28)
[2017-06-03] MEDS: ATORVASTATIN CA 10 MG TABLET (FP) PO SCH (22:29)
[2017-06-03] MEDS: DULoxetine HCL 30 MG CAPSULE.DR (FP) PO SCH (22:29)
[2017-06-03] MEDS: ASCORBIC ACID 500 MG TABLET (FP) PO SCH (22:30)
[2017-06-04] MEDS: LEVOTHYROXINE NA 50 MCG TABLET (FP) PO SCH (06:59)
[2017-06-04 07:30] LABS: BASOPHIL 0.4 % (0-2.0); EOSINOPHIL 0.6 % (0-4.5); MCH 33.4 pg (25.7-33.7); MCHC 33.5 g/dl (32.0-35.9); MEAN CELL VOLUME 99.7 fl (80-96); MEAN PLT VOLUME 9.7 fl (7.5-11.1); PLATELET COUNT 53 K/MM3 (134-434); RDW 18.2 % (11.9-15.9); WHITE BLOOD COUNT 6.9 K/mm3 (4.0-10.0)
[2017-06-04 07:55] LABS: ANION GAP 4 (8-16); CALCIUM 8.4 mg/dL (8.5-10.1); CO2 42 mmol/L (21-32); CREATININE 0.7 mg/dL (0.7-1.3); GLUCOSE,RANDOM 85 mg/dL (74-106); MAGNESIUM 1.9 mg/dL (1.8-2.4); PHOSPHOROUS 3.9 mg/dL (2.5-4.9)
[2017-06-04 10:24] LABS: PLATELET ESTIMATE DECREASED (NORMAL)
--- NOTE | 2017-06-04 10:35 | PN ---
Progress Note (short form) - Note Progress Note: Neurology 86 year old male who presented with shortness of breath and weakness that had been progressive over several days with decreased exercise tolerance and evolving to shortness of breath at rest. He has been getting treatment for PNA and admitted for further treatment. Neurologically, I was consulted for altered mental status. CT head completed and did not show acute changes. 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 Rechecked on patient, calm, comfortable, able to tell me he's at [facility], knows his own name, knows it's June, doesn't say 2016 right away. Appears to be near baseline mental status. Active Medications Acetaminophen (Tylenol -) 650 mg PO Q6H PRN PRN Reason: FEVER OR PAIN Last Admin: 05/19/17 00:53 Dose: 650 mg Al Hydroxide/Mg Hydroxide (Mylanta Oral Suspension -) 30 ml PO Q6H PRN PRN Reason: INDIGESTION Last Admin: 05/13/17 13:00 Dose: 30 ml Albuterol/Ipratropium (Duoneb -) 1 amp NEB Q4H PRN PRN Reason: SHORTNESS OF BREATH Last Admin: 05/21/17 10:38 Dose: 1 amp Amino Acids (Prosource No Carb Liquid Pkt) 30 ml PO BID@0800,1730 [facility] Last Admin: 06/03/17 18:17 Dose: 30 ml Ascorbic Acid (Vitamin C -) 500 mg PO HS [facility] Last Admin: 06/03/17 22:30 Dose: 500 mg Atorvastatin Calcium (Lipitor -) 10 mg PO [facility] Last Admin: 06/03/17 22:29 Dose: 10 mg Brimonidine Tartrate (Alphagan 0.15% -) 1 drop OD BID [facility] Last Admin: 06/03/17 22:30 Dose: 1 drop Cholecalciferol (Vitamin D3 -) 1,000 unit PO DAILY [facility] Last Admin: 06/03/17 10:05 Dose: 1,000 unit Docusate Sodium (Colace -) 200 mg PO [facility] Last Admin: 06/03/17 22:28 Dose: 200 mg Duloxetine HCl (Cymbalta -) 60 mg PO [facility] Last Admin: 06/03/17 22:29 Dose: 60 mg Fluticasone Propionate (Flonase -) 2 spray NS DAILY [facility] Last Admin: 06/03/17 10:10 Dose: 2 sprays Furosemide (Lasix -) 40 mg PO DAILY [facility] Gabapentin (Neurontin -) 600 mg PO BID [facility] Last Admin: 06/03/17 22:29 Dose: 600 mg Lactobacillus Acidophilus (Bacid -) 1 tab PO DAILY [facility] Last Admin: 06/03/17 10:05 Dose: 1 tab Levothyroxine Sodium (Synthroid -) 50 mcg PO DAILY@0700 [facility] Last Admin: 06/04/17 06:59 Dose: 50 mcg Metoprolol Tartrate (Lopressor -) 25 mg PO BID [facility] Last Admin: 06/03/17 22:29 Dose: 25 mg Prednisone (Deltasone -) 10 mg PO DAILY [facility] Last Admin: 06/03/17 10:05 Dose: 10 mg Ranitidine HCl (Zantac -) 150 mg PO BID [facility] Last Admin: 06/03/17 22:30 Dose: 150 mg Senna (Senna -) 2 tab PO DAILY [facility] Last Admin: 06/03/17 10:05 Dose: 2 tab Tamsulosin HCl (Flomax -) 0.4 mg PO DAILY@0830 [facility] Last Admin: 06/03/17 08:06 Dose: 0.4 mg Tiotropium [place] (Spiriva -) 1 puff IH DAILY [facility] Last Admin: 06/03/17 10:10 Dose: 1 puff Physical Examination Vital Signs Temperature 97.7 F 06/04/17 06:00 Pulse Rate 80 06/04/17 06:00 Respiratory Rate 20 06/04/17 06:00 Blood Pressure 156/52 06/04/17 06:00 O2 Sat by Pulse Oximetry (%) 92 L 06/03/17 10:20 Constitutional: Yes: Well Nourished, No Distress, Calm Eyes: Yes: Conjunctiva Clear, EOM Intact, PERRL Cardiovascular: Yes: Regular Rate and Rhythm. No: Gallop, Murmur, Rub Respiratory: Yes: Regular, CTA Bilaterally. No: Rales, Rhonchi, Wheezes Gastrointestinal: Yes: Normal Bowel Sounds, Soft. No: Distention, Tenderness Extremities: Yes: WNL Neuro: Awake, cooperative, CN appear intact, no facial droop, difficult to assess dysarthria, moving extremities grossly but not participating in confrontation testing, sensory intact CBCD WBC 6.9 K/mm3 (4.0-10.0) 06/04/17 06:30 RBC 2.50 M/mm3 (4.00-5.60) L 06/04/17 06:30 Hgb 8.3 GM/dL (11.7-16.9) L D 06/04/17 06:30 Hct 24.9 % (35.4-49) L 06/04/17 06:30 MCV 99.7 fl (80-96) H 06/04/17 06:30 MCHC 33.5 g/dl (32.0-35.9) 06/04/17 06:30 RDW 18.2 % (11.9-15.9) H 06/04/17 06:30 Plt Count 53 K/MM3 (134-434) L D 06/04/17 06:30 MPV 9.7 fl (7.5-11.1) 06/04/17 06:30 CMP Sodium 140 mmol/L (136-145) 06/04/17 06:30 Potassium 4.1 mmol/L (3.5-5.1) 06/04/17 06:30 Chloride 94 mmol/L (98-107) L 06/04/17 06:30 Carbon Dioxide 42 mmol/L (21-32) H 06/04/17 06:30 Anion Gap 4 (8-16) L 06/04/17 06:30 BUN 31 mg/dL (7-18) H 06/04/17 06:30 Creatinine 0.7 mg/dL (0.7-1.3) 06/04/17 06:30 Creat Clearance w eGFR > 60 (>60) 05/27/17 06:00 Calcium 8.4 mg/dL (8.5-10.1) L 06/04/17 06:30 Total Bilirubin 0.7 mg/dL (0.2-1.0) 06/01/17 07:00 AST 16 U/L (15-37) D 06/01/17 07:00 ALT 18 U/L (12-78) 06/01/17 07:00 Alkaline Phosphatase 45 U/L (45-117) 06/01/17 07:00 Total Protein 5.7 g/dl (6.4-8.2) L 06/01/17 07:00 Albumin 2.7 g/dl (3.4-5.0) L 06/01/17 07:00 Imaging - Results Chest X-ray: Report Reviewed, Image Reviewed CT head reviewed Plan: 86 year old male who presented with shortness of breath and weakness that had been progressive over several days with decreased exercise tolerance and evolving to shortness of breath at rest. He has been getting treatment for PNA and admitted for further treatment. Neurologically, I was consulted for altered mental status which has gradually improved. CT head reviewed. No longer on Abx Monitor Blood pressure, avoid episodes of HTN or hypotension Medical optimization Monitor for sundowning Mental status improved and likely at baseline
[2017-06-04] MEDS: SENNOSIDES 8.6MG TABLET (FP) PO SCH (10:43)
[2017-06-04] MEDS: TAMSULOSIN HCL 0.4 MG CAP.ER.24H (FP) PO SCH (10:43)
[2017-06-04] MEDS: GABAPENTIN 300 MG CAPSULE (FP) PO SCH ×2 (10:43→21:54)
[2017-06-04] MEDS: AMINO ACIDS/PROTEIN HYDROLYS 30 ML LIQUID.PKT PO SCH ×2 (10:43→18:46)
[2017-06-04] MEDS: METOPROLOL TARTRATE 25 MG TABLET (FP) PO SCH ×2 (10:43→21:54)
[2017-06-04] MEDS: LACTOBACILLUS ACIDOPHILUS 1 EACH TAB (FP) PO SCH (10:43)
[2017-06-04] MEDS: CHOLECALCIFEROL (VITAMIN D3) 1,000 UNIT TABLET (FP) PO SCH (10:43)
[2017-06-04] MEDS: RANITIDINE HCL 150 MG TABLET (FP) PO SCH ×2 (10:44→21:55)
[2017-06-04] MEDS: FUROSEMIDE 40 MG TABLET (FP) PO SCH (10:44)
[2017-06-04] MEDS: predniSONE 10 MG TABLET (UD) PO SCH (10:44)
[2017-06-04] MEDS: FLUTICASONE PROP 0.05% 16 GM NASAL SPRAY NS SCH (10:45)
[2017-06-04] MEDS: TIOTROPIUM BROMIDE 18 MCG/INH (DEVICE W/ 5 CAPSULES) IH SCH (10:45)
[2017-06-04] MEDS: BRIMONIDINE TARTRATE 0.15% OPHTHALMIC 5 ML BOTTLE OD SCH ×2 (10:46→21:55)
--- NOTE | 2017-06-04 11:04 | PN ---
Progress Note (short form) - Note Progress Note: PULMONARY Denies shortness of breath, still some dry cough but no wheezing. No fevers or chills. Last Vital Signs Temp Pulse Resp BP Pulse Ox 97.7 F 80 20 156/52 92 L 06/04/17 06:00 06/04/17 06:00 06/04/17 06:00 06/04/17 06:00 06/03/17 10:20 Gen: NAD at rest Heart: RRR Lung: decreased breath sounds at the bases Abd: soft, nontender Ext: no edema CBC, BMP 06/04/17 06:30 06/04/17 06:30 Active Medications Acetaminophen (Tylenol -) 650 mg PO Q6H PRN PRN Reason: FEVER OR PAIN Last Admin: 05/19/17 00:53 Dose: 650 mg Al Hydroxide/Mg Hydroxide (Mylanta Oral Suspension -) 30 ml PO Q6H PRN PRN Reason: INDIGESTION Last Admin: 05/13/17 13:00 Dose: 30 ml Albuterol/Ipratropium (Duoneb -) 1 amp NEB Q4H PRN PRN Reason: SHORTNESS OF BREATH Last Admin: 05/21/17 10:38 Dose: 1 amp Amino Acids (Prosource No Carb Liquid Pkt) 30 ml PO BID@0800,1730 [facility] Last Admin: 06/04/17 10:43 Dose: 30 ml Ascorbic Acid (Vitamin C -) 500 mg PO [facility] Last Admin: 06/03/17 22:30 Dose: 500 mg Atorvastatin Calcium (Lipitor -) 10 mg PO [facility] Last Admin: 06/03/17 22:29 Dose: 10 mg Brimonidine Tartrate (Alphagan 0.15% -) 1 drop OD BID [facility] Last Admin: 06/04/17 10:46 Dose: 1 drop Cholecalciferol (Vitamin D3 -) 1,000 unit PO DAILY [facility] Last Admin: 06/04/17 10:43 Dose: 1,000 unit Docusate Sodium (Colace -) 200 mg PO [facility] Last Admin: 06/03/17 22:28 Dose: 200 mg Duloxetine HCl (Cymbalta -) 60 mg PO [facility] Last Admin: 06/03/17 22:29 Dose: 60 mg Fluticasone Propionate (Flonase -) 2 spray NS DAILY [facility] Last Admin: 06/04/17 10:45 Dose: 2 sprays Furosemide (Lasix -) 40 mg PO DAILY [facility] Last Admin: 06/04/17 10:44 Dose: 40 mg Gabapentin (Neurontin -) 600 mg PO BID [facility] Last Admin: 06/04/17 10:43 Dose: 600 mg Lactobacillus Acidophilus (Bacid -) 1 tab PO DAILY [facility] Last Admin: 06/04/17 10:43 Dose: 1 tab Levothyroxine Sodium (Synthroid -) 50 mcg PO DAILY@0700 [facility] Last Admin: 06/04/17 06:59 Dose: 50 mcg Metoprolol Tartrate (Lopressor -) 25 mg PO BID [facility] Last Admin: 06/04/17 10:43 Dose: 25 mg Prednisone (Deltasone -) 10 mg PO DAILY [facility] Last Admin: 06/04/17 10:44 Dose: 10 mg Ranitidine HCl (Zantac -) 150 mg PO BID [facility] Last Admin: 06/04/17 10:44 Dose: Not Given Senna (Senna -) 2 tab PO DAILY [facility] Last Admin: 06/04/17 10:43 Dose: 2 tab Tamsulosin HCl (Flomax -) 0.4 mg PO DAILY@0830 [facility] Last Admin: 06/04/17 10:43 Dose: 0.4 mg Tiotropium [place] (Spiriva -) 1 puff IH DAILY [facility] Last Admin: 06/04/17 10:45 Dose: 1 puff A/P Pneumonia Atrial Fibrillation LV Diastolic Dysfunction CAD HTN Hyperlipidemia - completed antibiotics - continue lasix - taper off prednisone - inhaled bronchodilators - rate controlled - anticoagulation being held due to hematuria
[2017-06-04 12:14] LABS: BASOPHIL 0.7 % (0-2.0); EOSINOPHIL 0.5 % (0-4.5); MCH 33.2 pg (25.7-33.7); MCHC 33.2 g/dl (32.0-35.9); MEAN CELL VOLUME 99.9 fl (80-96); MEAN PLT VOLUME 9.4 fl (7.5-11.1); NEUTROPHILS 87.2 % (42.8-82.8); PLATELET COUNT 53 K/MM3 (134-434); RDW 17.8 % (11.9-15.9); WHITE BLOOD COUNT 8.4 K/mm3 (4.0-10.0)
--- NOTE | 2017-06-04 12:31 | PN ---
Progress Note, Physician Chief Complaint: Mr Rivas says he is feeling well today. Denies cp, sob, n/v. At baseline and saying he is ready for discharge - Current Medication List Current Medications: Active Medications Acetaminophen (Tylenol -) 650 mg PO Q6H PRN PRN Reason: FEVER OR PAIN Last Admin: 05/19/17 00:53 Dose: 650 mg Al Hydroxide/Mg Hydroxide (Mylanta Oral Suspension -) 30 ml PO Q6H PRN PRN Reason: INDIGESTION Last Admin: 05/13/17 13:00 Dose: 30 ml Albuterol/Ipratropium (Duoneb -) 1 amp NEB Q4H PRN PRN Reason: SHORTNESS OF BREATH Last Admin: 05/21/17 10:38 Dose: 1 amp Amino Acids (Prosource No Carb Liquid Pkt) 30 ml PO BID@0800,1730 [facility] Last Admin: 06/04/17 10:43 Dose: 30 ml Ascorbic Acid (Vitamin C -) 500 mg PO HS [facility] Last Admin: 06/03/17 22:30 Dose: 500 mg Atorvastatin Calcium (Lipitor -) 10 mg PO HS [facility] Last Admin: 06/03/17 22:29 Dose: 10 mg Brimonidine Tartrate (Alphagan 0.15% -) 1 drop OD BID [facility] Last Admin: 06/04/17 10:46 Dose: 1 drop Cholecalciferol (Vitamin D3 -) 1,000 unit PO DAILY [facility] Last Admin: 06/04/17 10:43 Dose: 1,000 unit Docusate Sodium (Colace -) 200 mg PO HS [facility] Last Admin: 06/03/17 22:28 Dose: 200 mg Duloxetine HCl (Cymbalta -) 60 mg PO HS [facility] Last Admin: 06/03/17 22:29 Dose: 60 mg Fluticasone Propionate (Flonase -) 2 spray NS DAILY [facility] Last Admin: 06/04/17 10:45 Dose: 2 sprays Furosemide (Lasix -) 40 mg PO DAILY [facility] Last Admin: 06/04/17 10:44 Dose: 40 mg Gabapentin (Neurontin -) 600 mg PO BID [facility] Last Admin: 06/04/17 10:43 Dose: 600 mg Lactobacillus Acidophilus (Bacid -) 1 tab PO DAILY [facility] Last Admin: 06/04/17 10:43 Dose: 1 tab Levothyroxine Sodium (Synthroid -) 50 mcg PO DAILY@0700 [facility] Last Admin: 06/04/17 06:59 Dose: 50 mcg Metoprolol Tartrate (Lopressor -) 25 mg PO BID [facility] Last Admin: 06/04/17 10:43 Dose: 25 mg Prednisone (Deltasone -) 10 mg PO DAILY [facility] Last Admin: 06/04/17 10:44 Dose: 10 mg Ranitidine HCl (Zantac -) 150 mg PO BID [facility] Last Admin: 06/04/17 10:44 Dose: Not Given Senna (Senna -) 2 tab PO DAILY [facility] Last Admin: 06/04/17 10:43 Dose: 2 tab Tamsulosin HCl (Flomax -) 0.4 mg PO DAILY@0830 [facility] Last Admin: 06/04/17 10:43 Dose: 0.4 mg Tiotropium [place] (Spiriva -) 1 puff IH DAILY [facility] Last Admin: 06/04/17 10:45 Dose: 1 puff - Objective Vital Signs: Vital Signs Temperature 36.4 C L 06/04/17 10:00 Pulse Rate 99 H 06/04/17 11:13 Respiratory Rate 18 06/04/17 10:00 Blood Pressure 155/83 06/04/17 10:00 O2 Sat by Pulse Oximetry (%) 100 06/04/17 11:13 Constitutional: Yes: No Distress, Calm, Pallor Cardiovascular: Yes: Pulse Irregular. No: Tachycardia, Gallop, Murmur, Rub Respiratory: Yes: Regular, CTA Bilaterally. No: Rales, Rhonchi, Wheezes Gastrointestinal: Yes: Normal Bowel Sounds, Soft. No: Distention, Tenderness Extremities: Yes: WNL Edema: No Labs: CBC, BMP 06/04/17 11:58 06/04/17 06:30 Problem List - Problems (1) Pneumonia Code(s): J18.9 - PNEUMONIA, UNSPECIFIED ORGANISM Qualifiers: Laterality: right Lung location: lower lobe of lung (2) Alkalosis, metabolic Code(s): E87.3 - ALKALOSIS (3) Atrial fibrillation Code(s): I48.91 - UNSPECIFIED ATRIAL FIBRILLATION Qualifiers: Atrial fibrillation type: chronic Qualified Code(s): I48.2 - Chronic atrial fibrillation; I48.2 - Chronic atrial fibrillation; I48.2 - Chronic atrial fibrillation; I48.2 - Chronic atrial fibrillation (4) CHF (congestive heart failure) Code(s): I50.9 - HEART FAILURE, UNSPECIFIED Qualifiers: Congestive heart failure type: unspecified congestive heart failure type Congestive heart failure chronicity: chronic Qualified Code(s): I50.9 - Heart failure, unspecified; I50.9 - Heart failure, unspecified; I50.9 - Heart failure, unspecified; I50.9 - Heart failure, unspecified (5) GERD (gastroesophageal reflux disease) Code(s): K21.9 - GASTRO-ESOPHAGEAL REFLUX DISEASE WITHOUT ESOPHAGITIS (6) HTN (hypertension) Code(s): I10 - ESSENTIAL (PRIMARY) HYPERTENSION (7) Hyperlipemia Code(s): E78.5 - HYPERLIPIDEMIA, UNSPECIFIED (8) Hypothyroidism Code(s): E03.9 - HYPOTHYROIDISM, UNSPECIFIED (9) PVD (peripheral vascular disease) Code(s): I73.9 - PERIPHERAL VASCULAR DISEASE, UNSPECIFIED (10) Acute respiratory failure Code(s): J96.00 - ACUTE RESPIRATORY FAILURE, UNSP W HYPOXIA OR HYPERCAPNIA Qualifiers: Respiratory failure complication: hypoxia and hypercapnia Qualified Code(s): J96.01 - Acute respiratory failure with hypoxia; J96.01 - Acute respiratory failure with hypoxia; J96.01 - Acute respiratory failure with hypoxia (11) Acute respiratory acidosis Code(s): E87.2 - ACIDOSIS (12) Hematuria Code(s): R31.9 - HEMATURIA, UNSPECIFIED Assessment/Plan (1) Community acquired pneumonia Assessment/Plan: -finished course of merrem -chest x-ray repeated and no sign of recurrent pneumonia (2) Respiratory acidosis Assessment/Plan: -pulmonary following Code(s): (3) Atrial fibrillation Assessment/Plan: -rate controlled -continue metoprolol -d/rigo anticoagulants secondary to hematuria requiring transfusion Code(s): I48.91 - UNSPECIFIED ATRIAL FIBRILLATION Qualifiers: Atrial fibrillation type: chronic Qualified Code(s): I48.2 - Chronic atrial fibrillation (4) CHF (congestive heart failure) Assessment/Plan: -changed to lasix daily -stable Code(s): I50.9 - HEART FAILURE, UNSPECIFIED Qualifiers: Congestive heart failure type: unspecified congestive heart failure type Congestive heart failure chronicity: chronic Qualified Code(s): I50.9 - Heart failure, unspecified (5) GERD (gastroesophageal reflux disease) Assessment/Plan: -continue zantac Code(s): K21.9 - GASTRO-ESOPHAGEAL REFLUX DISEASE WITHOUT ESOPHAGITIS (6) HTN (hypertension) Assessment/Plan: -controlled Code(s): I10 - ESSENTIAL (PRIMARY) HYPERTENSION (7) Hyperlipemia Assessment/Plan: -continue lipitor Code(s): E78.5 - HYPERLIPIDEMIA, UNSPECIFIED (8) Hypothyroidism Assessment/Plan: -continue synthroid Code(s): E03.9 - HYPOTHYROIDISM, UNSPECIFIED (9) PVD (peripheral vascular disease) Assessment/Plan: -holding lovenox -does not complain of claudication Code(s): I73.9 - PERIPHERAL VASCULAR DISEASE, UNSPECIFIED (10) Urinary retention -hematuria resolved -nelson removed and urinating -continue flomax (11) Metabolic encephalopathy -resolved (12) Acute respiratory failure -resolved -pulmonary following (13) Uremia -back to baseline (14) Anemia -worsened today -urine looks clear but will check urinalysis -will check stool for occult blood -heme/GI consult (15) Thrombocytopenia -recurrent -hematology consult (16) Hematuria -resolved -continue holding anticoagulant Dispo -unable to discharge today secondary to acute anemia and thrombocytopenia
--- NOTE | 2017-06-04 13:14 | PN ---
Progress Note, DIRECTOR CHANNEL - Note Progress Note: Selected Entries 06/02/17 06/02/17 06/02/17 10:26 14:05 23:35 Breakfast 75% Lunch 75% Supper 100% Temperature 06/03/17 06/03/17 06/03/17 07:11 09:28 10:00 Breakfast 100% Lunch 75% Supper Temperature 97 F L 97.4 F L 06/03/17 06/03/17 06/03/17 15:36 18:00 22:00 Breakfast Lunch Supper 75% 75% Temperature 98.6 F 98.1 F 99 F 06/04/17 06/04/17 06:00 10:00 Breakfast Lunch Supper Temperature 97.7 F 97.5 F L Laboratory Tests 05/31/17 06/01/17 06/04/17 06:00 07:00 06:30 WBC 7.8 D 6.9 RBC 2.69 L 2.91 L 2.50 L Pt is tolerating diet,with much improved appetite, fed by his . She is aware of sw compensatory strategies and follows them well.Tolerance overtly is good. Encourage supplements for increased density of nutritional intake. Pending d/c to [facility].
--- NOTE | 2017-06-04 13:21 | PN ---
Progress Note, Physician History of Present Illness: patient with no issues h and h dropped - Current Medication List Current Medications: Active Medications Acetaminophen (Tylenol -) 650 mg PO Q6H PRN PRN Reason: FEVER OR PAIN Last Admin: 05/19/17 00:53 Dose: 650 mg Al Hydroxide/Mg Hydroxide (Mylanta Oral Suspension -) 30 ml PO Q6H PRN PRN Reason: INDIGESTION Last Admin: 05/13/17 13:00 Dose: 30 ml Albuterol/Ipratropium (Duoneb -) 1 amp NEB Q4H PRN PRN Reason: SHORTNESS OF BREATH Last Admin: 05/21/17 10:38 Dose: 1 amp Amino Acids (Prosource No Carb Liquid Pkt) 30 ml PO BID@0800,1730 [facility] Last Admin: 06/04/17 10:43 Dose: 30 ml Ascorbic Acid (Vitamin C -) 500 mg PO HS [facility] Last Admin: 06/03/17 22:30 Dose: 500 mg Atorvastatin Calcium (Lipitor -) 10 mg PO [facility] Last Admin: 06/03/17 22:29 Dose: 10 mg Brimonidine Tartrate (Alphagan 0.15% -) 1 drop OD BID [facility] Last Admin: 06/04/17 10:46 Dose: 1 drop Cholecalciferol (Vitamin D3 -) 1,000 unit PO DAILY [facility] Last Admin: 06/04/17 10:43 Dose: 1,000 unit Docusate Sodium (Colace -) 200 mg PO HS [facility] Last Admin: 06/03/17 22:28 Dose: 200 mg Duloxetine HCl (Cymbalta -) 60 mg PO [facility] Last Admin: 06/03/17 22:29 Dose: 60 mg Fluticasone Propionate (Flonase -) 2 spray NS DAILY [facility] Last Admin: 06/04/17 10:45 Dose: 2 sprays Furosemide (Lasix -) 40 mg PO DAILY [facility] Last Admin: 06/04/17 10:44 Dose: 40 mg Gabapentin (Neurontin -) 600 mg PO BID [facility] Last Admin: 06/04/17 10:43 Dose: 600 mg Lactobacillus Acidophilus (Bacid -) 1 tab PO DAILY [facility] Last Admin: 06/04/17 10:43 Dose: 1 tab Levothyroxine Sodium (Synthroid -) 50 mcg PO DAILY@0700 [facility] Last Admin: 06/04/17 06:59 Dose: 50 mcg Metoprolol Tartrate (Lopressor -) 25 mg PO BID [facility] Last Admin: 06/04/17 10:43 Dose: 25 mg Prednisone (Deltasone -) 10 mg PO DAILY [facility] Last Admin: 06/04/17 10:44 Dose: 10 mg Ranitidine HCl (Zantac -) 150 mg PO BID [facility] Last Admin: 06/04/17 10:44 Dose: Not Given Senna (Senna -) 2 tab PO DAILY [facility] Last Admin: 06/04/17 10:43 Dose: 2 tab Tamsulosin HCl (Flomax -) 0.4 mg PO DAILY@0830 [facility] Last Admin: 06/04/17 10:43 Dose: 0.4 mg Tiotropium [place] (Spiriva -) 1 puff IH DAILY [facility] Last Admin: 06/04/17 10:45 Dose: 1 puff - Objective Vital Signs: Vital Signs Temperature 97.5 F L 06/04/17 10:00 Pulse Rate 99 H 06/04/17 11:13 Respiratory Rate 18 06/04/17 10:00 Blood Pressure 155/83 06/04/17 10:00 O2 Sat by Pulse Oximetry (%) 100 06/04/17 11:13 Constitutional: Yes: No Distress, Calm HENT: Yes: Atraumatic, Normocephalic Cardiovascular: Yes: Regular Rate and Rhythm Respiratory: Yes: Regular, CTA Bilaterally Gastrointestinal: Yes: Normal Bowel Sounds, Soft Musculoskeletal: Yes: WNL Extremities: Yes: WNL Neurological: Yes: Alert, Confusion Psychiatric: Yes: Alert, Oriented Labs: CBC, BMP 06/04/17 11:58 06/04/17 06:30 Assessment/Plan Problem List - Problems (1) Pneumonia Code(s): J18.9 - PNEUMONIA, UNSPECIFIED ORGANISM Qualifiers: Laterality: right Lung location: lower lobe of lung (2) Alkalosis, metabolic Code(s): E87.3 - ALKALOSIS (3) Atrial fibrillation Code(s): I48.91 - UNSPECIFIED ATRIAL FIBRILLATION Qualifiers: Atrial fibrillation type: chronic Qualified Code(s): I48.2 - Chronic atrial fibrillation (4) CHF (congestive heart failure) Code(s): I50.9 - HEART FAILURE, UNSPECIFIED Qualifiers: Congestive heart failure type: unspecified congestive heart failure type Congestive heart failure chronicity: chronic Qualified Code(s): I50.9 - Heart failure, unspecified (5) GERD (gastroesophageal reflux disease) Code(s): K21.9 - GASTRO-ESOPHAGEAL REFLUX DISEASE WITHOUT ESOPHAGITIS (6) HTN (hypertension) Code(s): I10 - ESSENTIAL (PRIMARY) HYPERTENSION (7) Hyperlipemia Code(s): E78.5 - HYPERLIPIDEMIA, UNSPECIFIED (8) Hypothyroidism Code(s): E03.9 - HYPOTHYROIDISM, UNSPECIFIED (9) PVD (peripheral vascular disease) Code(s): I73.9 - PERIPHERAL VASCULAR DISEASE, UNSPECIFIED Assessment/Plan (1) Community acquired pneumonia (2) Alkalosis, metabolic Code(s): E87.3 - ALKALOSIS (3) Atrial fibrillation Code(s): I48.91 - UNSPECIFIED ATRIAL FIBRILLATION Qualifiers: Atrial fibrillation type: chronic Qualified Code(s): I48.2 - Chronic atrial fibrillation (4) CHF (congestive heart failure) Code(s): I50.9 - HEART FAILURE, UNSPECIFIED Qualifiers: Congestive heart failure type: unspecified congestive heart failure type Congestive heart failure chronicity: chronic Qualified Code(s): I50.9 - Heart failure, unspecified (5) GERD (gastroesophageal reflux disease) Code(s): K21.9 - GASTRO-ESOPHAGEAL REFLUX DISEASE WITHOUT ESOPHAGITIS (6) HTN (hypertension) Code(s): I10 - ESSENTIAL (PRIMARY) HYPERTENSION (7) Hyperlipemia Code(s): E78.5 - HYPERLIPIDEMIA, UNSPECIFIED (8) Hypothyroidism Code(s): E03.9 - HYPOTHYROIDISM, UNSPECIFIED (9) PVD (peripheral vascular disease) Code(s): I73.9 - PERIPHERAL VASCULAR DISEASE, UNSPECIFIED anemia plan stable off of abx continue monitoring workup for drop of blood rest as per primary team
--- NOTE | 2017-06-04 16:06 | PN ---
Progress Note (short form) - Note Progress Note: GI CONSULTATION: PLEASE SEE FULL DICTATION PT KNOWN TO US HAD GI W/U 2009--EGD/COLON HAD LAST EGD 2014 NOW CALLED TO SEE PT DUE TO DROP IN HGB FROM 9 TO 7 WITH DROP IN PLT TO 50K (THOUGHT TO BE DUE TO HEPARIN) NO OVERT BLEEDING NOTED NO GI COMPLAINTS AT THIS TIME ALEKSANDRA: ABUNDANCE OF LIU STOOL/ SOFT/ GUAIAC NEGATIVE SUSPECT DROP IN HGB A RESULT OF ECYMOSIS---POSSIBLE DIFFUSE MUCOSAL OOZE IN PT WITH PLT OF 50K HOWEVER, ON MY EXAM-------NO BLOOD IN THE STOOL AGREE WITH CURRENT RX: AVOID A/C--HOLD HEPARIN F/U H/H EMPIRIC H2RX OBSERVE THANK YOU, MD KARL
--- NOTE | 2017-06-04 16:59 | CONS ---
GASTROENTEROLOGY CONSULTATION DATE OF CONSULTATION: 06/04/2017 I was asked by Dr. Anne and his group to evaluate this patient for anemia. The patient is an 86-year-old white male who is known to our group. He was last seen by Dr. Lomeli at [facility] for dysphagia. At that time, he underwent an upper endoscopy that revealed some mild esophageal candidiasis without any stricturing or narrowing of the esophagus. He was thought to have some dysmotility as well. We have not seen him since that time. Prior, in 2010, he was seen in the office by Dr. Lomeli, and at that time, he was noted to have hypertension, hyperlipidemia, hypothyroidism, atrial fibrillation, osteoarthritis, congestive heart failure, history of diverticular bleeding, gallstone pancreatitis, gastric and duodenal erosions. He had had numerous surgeries as well, and when he saw Dr. Lomeli, he was noted to have worsening anemia and melena in the setting of a supratherapeutic INR. At that time, he had been on Pradaxa, and he had been on Coumadin in the past. He had a colonoscopy in 2009. Also, in 2009, he had an upper endoscopy that revealed a nonobstructive Schatzki ring and a non-erosive duodenitis, and on colonoscopy, he had severe diverticulosis of the sigmoid colon. Apparently, now we are called to see the patient for dropping hemoglobin and hematocrit. It looks like he was admitted May 08. At that time, he was noted to have worsening shortness of breath. He was noted to have history of atrial fibrillation, hypertension, heart disease, congestive heart failure. He was admitted on that date, and it looks like has been in the hospital since that time. It looks like he has been followed by Infectious Disease. In speaking with the patient, he said that he had been treated for pneumonia, atrial fibrillation, and heart failure. The patient has been on multiple medications. It looks like he had a modified barium swallow on May 17. On that exam, there was no evidence of any aspiration or distal esophageal obstruction or significant findings. Apparently, we are called to see him because his hemoglobin had dropped from 9.9 to 7.9 over the past 3-4 days. In speaking with the patient, he denies having any abdominal pain or change in bowel habits. He denies bright red blood per rectum or black tarry stools. He has not had any nausea or vomiting, and he says he is eating okay. As far as he can tell me, he says that he has been in the hospital for so long because of repeated infections. MEDICATIONS: Currently, in the hospital, his medications include prednisone, Alphagan eye drops, Flomax, Tylenol, Mylanta, Neurontin, Cymbalta, Bacid, Spiriva, DuoNeb, Lopressor, Colace, senna, Flonase, Zantac, Lipitor, Lasix, amino acid, Synthroid, vitamin C, and vitamin D. Apparently, he had been receiving heparin shots which have been placed on hold. SURGICAL HISTORY: He has an extensive surgical history: Bilateral knee replacements, atherosclerotic coronary stenting, left femoral bypass. He had a right testicular removal secondary to trauma, back surgery, a CABG, and a cholecystectomy. SOCIAL HISTORY: The patient is noted to be , retired. He was a heavy drinker in the past. He quit in 2008. Does not use any drugs or smoke at the present time. ALLERGIES: He is noted to be allergic to PENICILLIN. PHYSICAL EXAMINATION: General: He is an elderly-appearing gentleman who appears somewhat pale. He is in no acute distress. HEENT: His mouth is extremely dry. His dentition is poor. Neck: Supple. Heart: Irregular. Abdomen: Has scars that are healed. It is soft. Bowel sounds are active. There are no masses, rebound, or guarding. There is no tenderness to deep palpation. Rectal: Exam reveals an abundance of gautam-brown, soft stool that is guaiac negative on my check. DIAGNOSTIC DATA: Today, his white count is 8.4 with a hemoglobin 7.9 and hematocrit 23.7 and an MCV of 99. He has 53,000 platelets. His chemistries are notable in that a serum sodium is 140, potassium 4.1, chloride 94, bicarbonate 42, BUN 31. His liver enzymes have been normal throughout the hospitalization, and it looks like he has not had any recent coagulation studies checked. IMPRESSION: So, it is my impression that the patient is an 86-year-old gentleman with multiple, multiple medical problems on multiple medications, who has a known history of esophageal dysphagia due to [place] esophagitis in the past, a Schatzki ring, who has had colonoscopy and endoscopy in 2009. The colonoscopy was essentially unrevealing except for the finding of some diverticular disease. The patient now has been hospitalized for the past 2-1/2 weeks due to infectious concerns. He has been on multiple medications. He was receiving heparin subcutaneous. Now, it seems that he has had a drop in his hemoglobin at the same time that his platelets dropped, and I question whether this is just a slow mucosal ooze due to thrombocytopenia from heparin. I agree with holding the heparin and observing. I agree with empiric proton pump inhibitor, but currently, his stool is guaiac negative. There is no evidence of any ongoing occult or overt bleeding. It could just be that his counts are dropping from daily phlebotomies and his multiple medications, and in addition, he has ecchymoses on his lower abdominal wall, that I did not notice on the physical exam. Bilaterally, he has significant bruising at the sites where he was getting the heparin subcutaneous. So, for now, I would stop the heparin. I would continue his diet. I would simply observe, follow up his counts. I suspect as his platelets rise, his hemoglobin and hematocrit will remain stable. If he has evidence of any ongoing overt bleeding, then we will intervene. We will continue to be available to aid in the management of this patient. Thank you kindly. SATISH BARAJAS M.D. SONAM/[id number]
[2017-06-04] MEDS: DULoxetine HCL 30 MG CAPSULE.DR (FP) PO SCH (21:54)
[2017-06-04] MEDS: DOCUSATE SODIUM 100 MG CAPSULE (FP) PO SCH (21:54)
[2017-06-04] MEDS: ATORVASTATIN CA 10 MG TABLET (FP) PO SCH (21:54)
[2017-06-04] MEDS: ASCORBIC ACID 500 MG TABLET (FP) PO SCH (21:55)
--- NOTE | 2017-06-04 22:21 | CONSULT ---
Consult Consult Specialty:: Hematology - History of Present Illness History of Present Illness: 86 yo male with long hx of dysphagia, signs of aspiration on past MBS, admitted with SOB and pneumonia. 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 Cardio/Vascular: Yes: AFIB, CAD, CHF, HTN, Hyperlipdemia Pulmonary: Yes: Pneumonia Gastrointestinal: Yes: Diverticulosis, GI Bleed, Hemorrhoids, Hiatal Hernia Renal/: Yes: Renal Inusuff Infectious Disease: Yes: Other (previous sepsis) Musculoskeletal: Yes: Osteoarthritis, Other (right foot drop) ENT: Yes: Other (dysphagia, hoarseness, ) Dermatology: Yes: Basal Cell (face), Other (Left worship with local extension and hematoma) - Past Surgical History Past Surgical History: Yes: Bypass (left fem-pop), CABG (x3 2004), Cholecystectomy, Joint Replacement (bilateral knees), Orchiectomy (unilateral for testicular injury at 18yrs of age) - Alcohol/Substance Use Hx Alcohol Use: No History of Substance Use: reports: None - Smoking History Smoking history: Former smoker Have you smoked in the past 12 months: No Aproximately how many cigarettes per day: 0 If you are a former smoker, when did you quit?: 1983 - Social History Usual Living Arrangement: With Spouse ADL: Support Services (In [place] post) 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) History of Recent Travel: No Home Medications - Allergies Allergies/Adverse Reactions: Allergies Allergy/AdvReac Type Severity Reaction Status Date / Time Penicillins Allergy Intermediate Rash Verified 05/08/17 14:14 - Home Medications Home Medications: Ambulatory Orders Alpha Lipoic Acid [Lipoic Acid] 200 mg PO DAILY 12/12/15 Ascorbic Acid [Vitamin C] 500 mg PO HS 12/12/15 Atorvastatin Ca [Lipitor] 10 mg PO HS 12/12/15 Brimonidine Tartrate [Alphagan 0.15% -] 1 drop OD BID 12/12/15 Cholecalciferol (Vitamin D3) [Vitamin D] 1,000 unit PO DAILY 12/12/15 Dabigatran Etexilate Mesylate [Pradaxa -] 150 mg PO BID 12/12/15 Docusate Sodium [Colace -] 200 mg PO HS 12/12/15 Duloxetine HCl [Cymbalta] 60 mg PO HS 12/12/15 Fenofibrate Nanocrystallized [Tricor] 145 mg PO DAILY 12/12/15 Ferrous Sulfate [Slow Release Iron] 45 mg PO DAILY 12/12/15 Fluticasone Prop 0.05% Nasal [Flonase -] 2 spray NS DAILY 12/12/15 Furosemide [Lasix -] 40 mg PO ASDIR 12/12/15 Levomefolate/B6/B12/Algal Oil [Metanx Capsule] 1 each PO BID 12/12/15 Levothyroxine [Synthroid -] 50 mcg PO DAILY 12/12/15 Magnesium Chloride [Magnesium Dr] 64 mg PO DAILY 12/12/15 Omeprazole [Prilosec] 40 mg PO DAILY 12/12/15 Potassium Chloride 20 meq PO DAILY 12/12/15 Sennosides [Senna Concentrate] 17.2 mg PO DAILY 12/12/15 Butenafine HCl [Mentax] 30 gm TP BID 05/08/17 Gabapentin 600 mg PO BID 05/08/17 Melatonin 3 mg PO DAILY 05/08/17 Family Disease History - Family Disease History Family Disease History: [place]: Son (1 son from cancer, 1 son from alcohol abuse), Other: Father (old age), Mother (old age), Son Physical Exam Vital Signs: Vital Signs Temperature 98.2 F 06/04/17 20:30 Pulse Rate 76 06/04/17 20:30 Respiratory Rate 20 06/04/17 20:30 Blood Pressure 145/66 06/04/17 20:30 O2 Sat by Pulse Oximetry (%) 100 06/04/17 20:30 Constitutional: Yes: Calm Eyes: Yes: Conjunctiva Clear, EOM Intact HENT: Yes: Atraumatic, Normocephalic Neck: Yes: Supple Cardiovascular: Yes: Regular Rate and Rhythm Respiratory: Yes: Regular Gastrointestinal: Yes: Normal Bowel Sounds, Soft Labs: CBC, BMP 06/04/17 11:58 06/04/17 06:30 Imaging - Results X-ray: Report Reviewed Cat Scan: Report Reviewed Assessment/Plan multiple medical problems anemia New onset thrombocytopenia Anemia: Iron studies, b12 folate noted, ACD. Transfuse prn Thrombocytopenia: likely med induced/ongoing infection, HIT ab negative, CT w/ normal Liver and spleen,if bleeding, will transfuse platelets. order coags. will follow.,
[2017-06-05] MEDS: LEVOTHYROXINE NA 50 MCG TABLET (FP) PO SCH (06:40)
[2017-06-05 07:31] LABS: BASOPHIL 0.4 % (0-2.0); MCH 33.2 pg (25.7-33.7); MCHC 33.1 g/dl (32.0-35.9); MEAN CELL VOLUME 100.3 fl (80-96); MEAN PLT VOLUME 9.8 fl (7.5-11.1); NEUTROPHILS 86.5 % (42.8-82.8); PLATELET COUNT 58 K/MM3 (134-434); RDW 18.2 % (11.9-15.9); WHITE BLOOD COUNT 7.3 K/mm3 (4.0-10.0)
[2017-06-05 08:02] LABS: ANION GAP 5 (8-16); CALCIUM 8.6 mg/dL (8.5-10.1); CO2 42 mmol/L (21-32); CREATININE 0.6 mg/dL (0.7-1.3); GLUCOSE,RANDOM 86 mg/dL (74-106); PHOSPHOROUS 3.7 mg/dL (2.5-4.9)
[2017-06-05 08:19] LABS: INR 0.99 (0.82-1.09); PROTHROMBIN TIME (PATIENT) 10.9 SEC (9.98-11.88)
[2017-06-05 08:22] LABS: ACTIVATED PTT 28.4 SECONDS (26.9-34.4)
[2017-06-05] MEDS: TAMSULOSIN HCL 0.4 MG CAP.ER.24H (FP) PO SCH (08:43)
[2017-06-05] MEDS: AMINO ACIDS/PROTEIN HYDROLYS 30 ML LIQUID.PKT PO SCH ×2 (08:43→17:21)
[2017-06-05] MEDS: FLUTICASONE PROP 0.05% 16 GM NASAL SPRAY NS SCH (10:49)
[2017-06-05] MEDS: CHOLECALCIFEROL (VITAMIN D3) 1,000 UNIT TABLET (FP) PO SCH (10:49)
[2017-06-05] MEDS: FUROSEMIDE 40 MG TABLET (FP) PO SCH (10:49)
[2017-06-05] MEDS: GABAPENTIN 300 MG CAPSULE (FP) PO SCH ×2 (10:49→21:29)
[2017-06-05] MEDS: METOPROLOL TARTRATE 25 MG TABLET (FP) PO SCH ×2 (10:49→21:29)
[2017-06-05] MEDS: SENNOSIDES 8.6MG TABLET (FP) PO SCH (10:49)
[2017-06-05] MEDS: BRIMONIDINE TARTRATE 0.15% OPHTHALMIC 5 ML BOTTLE OD SCH ×2 (10:49→21:30)
[2017-06-05] MEDS: RANITIDINE HCL 150 MG TABLET (FP) PO SCH ×2 (10:49→21:30)
[2017-06-05] MEDS: TIOTROPIUM BROMIDE 18 MCG/INH (DEVICE W/ 5 CAPSULES) IH SCH (10:49)
[2017-06-05] MEDS: LACTOBACILLUS ACIDOPHILUS 1 EACH TAB (FP) PO SCH (10:49)
[2017-06-05] MEDS: predniSONE 10 MG TABLET (UD) PO SCH (10:50)
--- NOTE | 2017-06-05 11:35 | PN ---
Progress Note (short form) - Note Progress Note: s: no cp palps dizzy, sob better; feeling some nasal congestion Current Medications Generic Name Dose Route Start Last Admin Trade Name Freq PRN Reason Stop Dose Admin Acetaminophen 650 mg 05/08/17 18:51 05/19/17 00:53 Tylenol - PO 650 mg Q6H PRN Administration FEVER OR PAIN Al Hydroxide/Mg Hydroxide 30 ml 05/13/17 12:50 05/13/17 13:00 Mylanta Oral Suspension - PO 30 ml Q6H PRN Administration INDIGESTION Albuterol/Ipratropium 1 amp 05/19/17 17:58 05/21/17 10:38 Duoneb - NEB 1 amp Q4H PRN Administration SHORTNESS OF BREATH Amino Acids 30 ml 05/22/17 17:30 06/05/17 08:43 Prosource No Carb Liquid Pkt PO 30 ml BID@0800,1730 MICHAEL Administration Ascorbic Acid 500 mg 05/08/17 22:00 06/04/17 21:55 Vitamin C - PO 500 mg HS MICHAEL Administration Atorvastatin Calcium 10 mg 05/08/17 22:00 06/04/17 21:54 Lipitor - PO 10 mg HS MICHAEL Administration Brimonidine Tartrate 1 drop 05/08/17 22:00 06/05/17 10:49 Alphagan 0.15% - OD 1 drop BID MICHAEL Administration Cholecalciferol 1,000 unit 05/09/17 10:00 06/05/17 10:49 Vitamin D3 - PO 1,000 unit DAILY MICHAEL Administration Docusate Sodium 200 mg 05/08/17 22:00 06/04/17 21:54 Colace - PO 200 mg HS MICHAEL Administration Duloxetine HCl 60 mg 05/08/17 22:00 06/04/17 21:54 Cymbalta - PO 60 mg HS MICHAEL Administration Fluticasone Propionate 2 spray 05/09/17 10:00 06/05/17 10:49 Flonase - NS 2 sprays DAILY MICHAEL Administration Furosemide 40 mg 06/04/17 10:00 06/05/17 10:49 Lasix - PO 40 mg DAILY MICHAEL Administration Gabapentin 600 mg 05/08/17 22:00 06/05/17 10:49 Neurontin - PO 600 mg BID MICHAEL Administration Lactobacillus Acidophilus 1 tab 05/10/17 11:00 06/05/17 10:49 Bacid - PO 1 tab DAILY MICHAEL Administration Levothyroxine Sodium 50 mcg 05/09/17 07:00 06/05/17 06:40 Synthroid - PO 50 mcg DAILY@0700 MICHAEL Administration Metoprolol Tartrate 25 mg 05/25/17 08:38 06/05/17 10:49 Lopressor - PO 25 mg BID MICHAEL Administration Prednisone 10 mg 06/02/17 11:36 06/05/17 10:50 Deltasone - PO 10 mg DAILY MICHAEL Administration Ranitidine HCl 150 mg 05/08/17 22:00 06/05/17 10:49 Zantac - PO 150 mg BID MICHAEL Administration Senna 2 tab 05/09/17 10:00 06/05/17 10:49 Senna - PO 2 tab DAILY MICHAEL Administration Tamsulosin HCl 0.4 mg 05/31/17 08:30 06/05/17 08:43 Flomax - PO 0.4 mg DAILY@0830 MICHAEL Administration Tiotropium [place] 1 puff 05/09/17 13:00 06/05/17 10:49 Spiriva - IH 1 puff DAILY MICHAEL Administration Vital Signs Period Temp Pulse Resp BP Sys/Mitchell Pulse Ox Last 24 Hr 97.7 F-98.2 F 67-76 18-20 140-145/66-79 100-100 Constitutional: Yes: No Distress, Calm Cardiovascular: Yes: irregular Rate and Rhythm, S1, S2. No: Gallop, Murmur Respiratory: Yes:cta bl nl eff. No: Accessory Muscle Use Extremities: No: Cold Edema: No Neurological: Yes: alert today, conversational. No: Seizure Psychiatric: No: Agitated no jaundice diaphoresis Labs: CBC, BMP 06/05/17 07:20 06/05/17 07:20 echo 05/2017: mild, global LV hypo; nl RV; mild MR; mild ao root dilation (no RVSP) echo 10/2016: low nl lvef, nl lv size, nl rv, mild elena, mild mr/tr, rvsp 40-50 mibi 10/2016: no ischemia head ct 05/14: chronic rt cerebellar infarct, no acute pathology. a/p: 86 Y/O Gentleman with a PMhx that includes CKD, CAD s/p pci to rca 2004 ( patent on cath 2006), PVD s/p le bypass/stents/amputations, HTN, Afib on AC, here with sob, weakness found to have pna. fatigue, sob: -bnp high, but outpt lasix has not improved his sxs and here with no signs of vol overload so does not seem that chf causing his sxs. -imaging shows pna, mucus plugs, possibly aspirating, was on abx, steroids per ID/pulm-->symptomatically improving afib: - had been on pradaxa but was switched to lovenox while unable to take po. - 05/21 Now able to take po but with hematuria and hgb/platelets low so lovenox has been stopped for now. /GI/Heme following - rate controlled, cont low dose bb cad s/p remote pci: -stable -no signs acs -off AC as above. con't statin. has been off bb/acei due to low bp as outpt, but started BB here for AF chronic diastolic chf: -cont lasix 40 po qd htn: -stable, cont current meds. hld: -cont home statin
--- NOTE | 2017-06-05 11:41 | PN ---
Progress Note (short form) - Note Progress Note: PULMONARY AWAKE/CLINICALLY IMPROVED VSS/ANICTERIC/PALE DIMINISHED BREATH SOUNDS S1S2 IRREGULAR BS+ NO EDEMA LABS/MEDS/NOTES/IMAGING/ABG REVIEWED A/P CHF Atrial Fibrillation LV Diastolic Dysfunction CAD HTN Hyperlipidemia - lasix - steroids to be tapered - inhaled bronchodilators - rate controlled - monitor urine output Coleen STOKES MD
--- NOTE | 2017-06-05 14:32 | PN ---
Progress Note, Physician History of Present Illness: stable no issues - Current Medication List Current Medications: Active Medications Acetaminophen (Tylenol -) 650 mg PO Q6H PRN PRN Reason: FEVER OR PAIN Last Admin: 05/19/17 00:53 Dose: 650 mg Al Hydroxide/Mg Hydroxide (Mylanta Oral Suspension -) 30 ml PO Q6H PRN PRN Reason: INDIGESTION Last Admin: 05/13/17 13:00 Dose: 30 ml Albuterol/Ipratropium (Duoneb -) 1 amp NEB Q4H PRN PRN Reason: SHORTNESS OF BREATH Last Admin: 05/21/17 10:38 Dose: 1 amp Amino Acids (Prosource No Carb Liquid Pkt) 30 ml PO BID@0800,1730 [facility] Last Admin: 06/05/17 08:43 Dose: 30 ml Ascorbic Acid (Vitamin C -) 500 mg PO HS [facility] Last Admin: 06/04/17 21:55 Dose: 500 mg Atorvastatin Calcium (Lipitor -) 10 mg PO [facility] Last Admin: 06/04/17 21:54 Dose: 10 mg Brimonidine Tartrate (Alphagan 0.15% -) 1 drop OD BID [facility] Last Admin: 06/05/17 10:49 Dose: 1 drop Cholecalciferol (Vitamin D3 -) 1,000 unit PO DAILY [facility] Last Admin: 06/05/17 10:49 Dose: 1,000 unit Docusate Sodium (Colace -) 200 mg PO HS [facility] Last Admin: 06/04/17 21:54 Dose: 200 mg Duloxetine HCl (Cymbalta -) 60 mg PO [facility] Last Admin: 06/04/17 21:54 Dose: 60 mg Fluticasone Propionate (Flonase -) 2 spray NS DAILY [facility] Last Admin: 06/05/17 10:49 Dose: 2 sprays Furosemide (Lasix -) 40 mg PO DAILY [facility] Last Admin: 06/05/17 10:49 Dose: 40 mg Gabapentin (Neurontin -) 600 mg PO BID [facility] Last Admin: 06/05/17 10:49 Dose: 600 mg Lactobacillus Acidophilus (Bacid -) 1 tab PO DAILY [facility] Last Admin: 06/05/17 10:49 Dose: 1 tab Levothyroxine Sodium (Synthroid -) 50 mcg PO DAILY@0700 [facility] Last Admin: 06/05/17 06:40 Dose: 50 mcg Metoprolol Tartrate (Lopressor -) 25 mg PO BID [facility] Last Admin: 06/05/17 10:49 Dose: 25 mg Prednisone (Deltasone -) 10 mg PO DAILY [facility] Last Admin: 06/05/17 10:50 Dose: 10 mg Ranitidine HCl (Zantac -) 150 mg PO BID [facility] Last Admin: 06/05/17 10:49 Dose: 150 mg Senna (Senna -) 2 tab PO DAILY [facility] Last Admin: 06/05/17 10:49 Dose: 2 tab Tamsulosin HCl (Flomax -) 0.4 mg PO DAILY@0830 [facility] Last Admin: 06/05/17 08:43 Dose: 0.4 mg Tiotropium [place] (Spiriva -) 1 puff IH DAILY [facility] Last Admin: 06/05/17 10:49 Dose: 1 puff - Objective Vital Signs: Vital Signs Temperature 97.7 F 06/05/17 10:00 Pulse Rate 71 06/05/17 13:44 Respiratory Rate 16 06/05/17 10:00 Blood Pressure 147/70 06/05/17 10:00 O2 Sat by Pulse Oximetry (%) 91 L 06/05/17 13:44 Constitutional: Yes: No Distress, Calm Eyes: Yes: Conjunctiva Clear Cardiovascular: Yes: Regular Rate and Rhythm Respiratory: Yes: Regular, Poor Air Entry Gastrointestinal: Yes: Normal Bowel Sounds, Soft Musculoskeletal: Yes: WNL Extremities: Yes: WNL Neurological: Yes: Alert Psychiatric: Yes: Alert Labs: CBC, BMP 06/05/17 07:20 06/05/17 07:20 INR, PTT INR 0.99 (0.82-1.09) 06/05/17 07:20 Fibrinogen 592.0 mg/dL (238-498) H 06/05/17 07:20 Assessment/Plan Problem List - Problems (1) Pneumonia Code(s): J18.9 - PNEUMONIA, UNSPECIFIED ORGANISM Qualifiers: Laterality: right Lung location: lower lobe of lung (2) Alkalosis, metabolic Code(s): E87.3 - ALKALOSIS (3) Atrial fibrillation Code(s): I48.91 - UNSPECIFIED ATRIAL FIBRILLATION Qualifiers: Atrial fibrillation type: chronic Qualified Code(s): I48.2 - Chronic atrial fibrillation (4) CHF (congestive heart failure) Code(s): I50.9 - HEART FAILURE, UNSPECIFIED Qualifiers: Congestive heart failure type: unspecified congestive heart failure type Congestive heart failure chronicity: chronic Qualified Code(s): I50.9 - Heart failure, unspecified (5) GERD (gastroesophageal reflux disease) Code(s): K21.9 - GASTRO-ESOPHAGEAL REFLUX DISEASE WITHOUT ESOPHAGITIS (6) HTN (hypertension) Code(s): I10 - ESSENTIAL (PRIMARY) HYPERTENSION (7) Hyperlipemia Code(s): E78.5 - HYPERLIPIDEMIA, UNSPECIFIED (8) Hypothyroidism Code(s): E03.9 - HYPOTHYROIDISM, UNSPECIFIED (9) PVD (peripheral vascular disease) Code(s): I73.9 - PERIPHERAL VASCULAR DISEASE, UNSPECIFIED Assessment/Plan (1) Community acquired pneumonia (2) Alkalosis, metabolic Code(s): E87.3 - ALKALOSIS (3) Atrial fibrillation Code(s): I48.91 - UNSPECIFIED ATRIAL FIBRILLATION Qualifiers: Atrial fibrillation type: chronic Qualified Code(s): I48.2 - Chronic atrial fibrillation (4) CHF (congestive heart failure) Code(s): I50.9 - HEART FAILURE, UNSPECIFIED Qualifiers: Congestive heart failure type: unspecified congestive heart failure type Congestive heart failure chronicity: chronic Qualified Code(s): I50.9 - Heart failure, unspecified (5) GERD (gastroesophageal reflux disease) Code(s): K21.9 - GASTRO-ESOPHAGEAL REFLUX DISEASE WITHOUT ESOPHAGITIS (6) HTN (hypertension) Code(s): I10 - ESSENTIAL (PRIMARY) HYPERTENSION (7) Hyperlipemia Code(s): E78.5 - HYPERLIPIDEMIA, UNSPECIFIED (8) Hypothyroidism Code(s): E03.9 - HYPOTHYROIDISM, UNSPECIFIED (9) PVD (peripheral vascular disease) Code(s): I73.9 - PERIPHERAL VASCULAR DISEASE, UNSPECIFIED anemia plan stable off of abx continue monitoring rest as per primary
--- NOTE | 2017-06-05 15:45 | PN ---
Progress Note, CLINICAL RESEARCH COORDINATOR - Note Progress Note: REviewed pt's swallowing status and compensatory strategies with pt's and CLINICAL RESEARCH COORDINATOR at [facility] for carryover when pt is transferred. Selected Entries 06/04/17 06/04/17 06/04/17 06:00 10:00 15:18 Breakfast 75% 100% Lunch 75% Supper Temperature 97.7 F 97.5 F L 06/04/17 06/04/17 06/05/17 18:00 20:30 06:00 Breakfast Lunch Supper 50% Temperature 97.9 F 98.2 F 97.7 F 06/05/17 06/05/17 06/05/17 10:00 12:01 15:10 Breakfast 100% Lunch Supper Temperature 97.7 F 98.4 F 06/05/17 15:12 Breakfast Lunch 100% Supper Temperature Laboratory Tests 06/04/17 06/05/17 06:30 07:20 WBC 6.9 7.3 Pt is tolerating diet quite well with improved appetite.
--- NOTE | 2017-06-05 16:07 | PN ---
Progress Note, Physician Chief Complaint: Mr Rivas is without complaint. No cp, sob, n/v. - Current Medication List Current Medications: Active Medications Acetaminophen (Tylenol -) 650 mg PO Q6H PRN PRN Reason: FEVER OR PAIN Last Admin: 05/19/17 00:53 Dose: 650 mg Al Hydroxide/Mg Hydroxide (Mylanta Oral Suspension -) 30 ml PO Q6H PRN PRN Reason: INDIGESTION Last Admin: 05/13/17 13:00 Dose: 30 ml Albuterol/Ipratropium (Duoneb -) 1 amp NEB Q4H PRN PRN Reason: SHORTNESS OF BREATH Last Admin: 05/21/17 10:38 Dose: 1 amp Amino Acids (Prosource No Carb Liquid Pkt) 30 ml PO BID@0800,1730 [facility] Last Admin: 06/05/17 08:43 Dose: 30 ml Ascorbic Acid (Vitamin C -) 500 mg PO HS [facility] Last Admin: 06/04/17 21:55 Dose: 500 mg Atorvastatin Calcium (Lipitor -) 10 mg PO HS [facility] Last Admin: 06/04/17 21:54 Dose: 10 mg Brimonidine Tartrate (Alphagan 0.15% -) 1 drop OD BID [facility] Last Admin: 06/05/17 10:49 Dose: 1 drop Cholecalciferol (Vitamin D3 -) 1,000 unit PO DAILY [facility] Last Admin: 06/05/17 10:49 Dose: 1,000 unit Docusate Sodium (Colace -) 200 mg PO HS [facility] Last Admin: 06/04/17 21:54 Dose: 200 mg Duloxetine HCl (Cymbalta -) 60 mg PO HS [facility] Last Admin: 06/04/17 21:54 Dose: 60 mg Fluticasone Propionate (Flonase -) 2 spray NS DAILY [facility] Last Admin: 06/05/17 10:49 Dose: 2 sprays Furosemide (Lasix -) 40 mg PO DAILY [facility] Last Admin: 06/05/17 10:49 Dose: 40 mg Gabapentin (Neurontin -) 600 mg PO BID [facility] Last Admin: 06/05/17 10:49 Dose: 600 mg Lactobacillus Acidophilus (Bacid -) 1 tab PO DAILY [facility] Last Admin: 06/05/17 10:49 Dose: 1 tab Levothyroxine Sodium (Synthroid -) 50 mcg PO DAILY@0700 [facility] Last Admin: 06/05/17 06:40 Dose: 50 mcg Metoprolol Tartrate (Lopressor -) 25 mg PO BID [facility] Last Admin: 06/05/17 10:49 Dose: 25 mg Prednisone (Deltasone -) 10 mg PO DAILY [facility] Last Admin: 06/05/17 10:50 Dose: 10 mg Ranitidine HCl (Zantac -) 150 mg PO BID [facility] Last Admin: 06/05/17 10:49 Dose: 150 mg Senna (Senna -) 2 tab PO DAILY [facility] Last Admin: 06/05/17 10:49 Dose: 2 tab Tamsulosin HCl (Flomax -) 0.4 mg PO DAILY@0830 [facility] Last Admin: 06/05/17 08:43 Dose: 0.4 mg Tiotropium [place] (Spiriva -) 1 puff IH DAILY [facility] Last Admin: 06/05/17 10:49 Dose: 1 puff - Objective Vital Signs: Vital Signs Temperature 36.9 C 06/05/17 15:10 Pulse Rate 75 06/05/17 15:10 Respiratory Rate 16 06/05/17 15:10 Blood Pressure 111/53 06/05/17 15:10 O2 Sat by Pulse Oximetry (%) 91 L 06/05/17 13:44 Constitutional: Yes: Well Nourished, No Distress, Calm Cardiovascular: Yes: Regular Rate and Rhythm. No: Gallop, Murmur, Rub Respiratory: Yes: Regular, CTA Bilaterally. No: Rales, Rhonchi, Wheezes Gastrointestinal: Yes: Normal Bowel Sounds, Soft. No: Distention, Tenderness Extremities: Yes: WNL Edema: No Labs: CBC, BMP 06/05/17 07:20 06/05/17 07:20 INR, PTT INR 0.99 (0.82-1.09) 06/05/17 07:20 Fibrinogen 592.0 mg/dL (238-498) H 06/05/17 07:20 Problem List - Problems (1) Pneumonia Code(s): J18.9 - PNEUMONIA, UNSPECIFIED ORGANISM Qualifiers: Laterality: right Lung location: lower lobe of lung (2) Alkalosis, metabolic Code(s): E87.3 - ALKALOSIS (3) Atrial fibrillation Code(s): I48.91 - UNSPECIFIED ATRIAL FIBRILLATION Qualifiers: Atrial fibrillation type: chronic Qualified Code(s): I48.2 - Chronic atrial fibrillation; I48.2 - Chronic atrial fibrillation; I48.2 - Chronic atrial fibrillation; I48.2 - Chronic atrial fibrillation (4) CHF (congestive heart failure) Code(s): I50.9 - HEART FAILURE, UNSPECIFIED Qualifiers: Congestive heart failure type: unspecified congestive heart failure type Congestive heart failure chronicity: chronic Qualified Code(s): I50.9 - Heart failure, unspecified; I50.9 - Heart failure, unspecified; I50.9 - Heart failure, unspecified; I50.9 - Heart failure, unspecified (5) GERD (gastroesophageal reflux disease) Code(s): K21.9 - GASTRO-ESOPHAGEAL REFLUX DISEASE WITHOUT ESOPHAGITIS (6) HTN (hypertension) Code(s): I10 - ESSENTIAL (PRIMARY) HYPERTENSION (7) Hyperlipemia Code(s): E78.5 - HYPERLIPIDEMIA, UNSPECIFIED (8) Hypothyroidism Code(s): E03.9 - HYPOTHYROIDISM, UNSPECIFIED (9) PVD (peripheral vascular disease) Code(s): I73.9 - PERIPHERAL VASCULAR DISEASE, UNSPECIFIED (10) Acute respiratory failure Code(s): J96.00 - ACUTE RESPIRATORY FAILURE, UNSP W HYPOXIA OR HYPERCAPNIA Qualifiers: Respiratory failure complication: hypoxia and hypercapnia Qualified Code(s): J96.01 - Acute respiratory failure with hypoxia; J96.01 - Acute respiratory failure with hypoxia; J96.01 - Acute respiratory failure with hypoxia (11) Acute respiratory acidosis Code(s): E87.2 - ACIDOSIS (12) Hematuria Code(s): R31.9 - HEMATURIA, UNSPECIFIED Assessment/Plan (1) Community acquired pneumonia Assessment/Plan: -finished course of merrem -chest x-ray repeated and no sign of recurrent pneumonia (2) Respiratory acidosis Assessment/Plan: -pulmonary following Code(s): (3) Atrial fibrillation Assessment/Plan: -rate controlled -continue metoprolol -d/rigo anticoagulants secondary to hematuria requiring transfusion -patient to follow up with cardiology as an outpatient for restarting Code(s): I48.91 - UNSPECIFIED ATRIAL FIBRILLATION Qualifiers: Atrial fibrillation type: chronic Qualified Code(s): I48.2 - Chronic atrial fibrillation (4) CHF (congestive heart failure) Assessment/Plan: -changed to lasix daily -stable Code(s): I50.9 - HEART FAILURE, UNSPECIFIED Qualifiers: Congestive heart failure type: unspecified congestive heart failure type Congestive heart failure chronicity: chronic Qualified Code(s): I50.9 - Heart failure, unspecified (5) GERD (gastroesophageal reflux disease) Assessment/Plan: -continue zantac Code(s): K21.9 - GASTRO-ESOPHAGEAL REFLUX DISEASE WITHOUT ESOPHAGITIS (6) HTN (hypertension) Assessment/Plan: -controlled Code(s): I10 - ESSENTIAL (PRIMARY) HYPERTENSION (7) Hyperlipemia Assessment/Plan: -continue lipitor Code(s): E78.5 - HYPERLIPIDEMIA, UNSPECIFIED (8) Hypothyroidism Assessment/Plan: -continue synthroid Code(s): E03.9 - HYPOTHYROIDISM, UNSPECIFIED (9) PVD (peripheral vascular disease) Assessment/Plan: -holding lovenox -does not complain of claudication Code(s): I73.9 - PERIPHERAL VASCULAR DISEASE, UNSPECIFIED (10) Urinary retention -hematuria resolved -nelson removed and urinating -continue flomax (11) Metabolic encephalopathy -resolved (12) Acute respiratory failure -resolved -pulmonary following (13) Uremia -back to baseline (14) Anemia -improved today -recheck in am (15) Thrombocytopenia -case d/w hematology -improving -monitor (16) Hematuria -resolved -continue holding anticoagulant Dispo -plan for discharge tomorrow
[2017-06-05] MEDS: DOCUSATE SODIUM 100 MG CAPSULE (FP) PO SCH (21:28)
[2017-06-05] MEDS: ATORVASTATIN CA 10 MG TABLET (FP) PO SCH (21:29)
[2017-06-05] MEDS: DULoxetine HCL 30 MG CAPSULE.DR (FP) PO SCH (21:29)
[2017-06-05] MEDS: ASCORBIC ACID 500 MG TABLET (FP) PO SCH (21:30)
[2017-06-06] MEDS: LEVOTHYROXINE NA 50 MCG TABLET (FP) PO SCH (06:54)
[2017-06-06 08:11] LABS: BASOPHIL 0.7 % (0-2.0); EOSINOPHIL 0.4 % (0-4.5); MCH 32.9 pg (25.7-33.7); MCHC 32.8 g/dl (32.0-35.9); MEAN CELL VOLUME 100.2 fl (80-96); MEAN PLT VOLUME 9.3 fl (7.5-11.1); NEUTROPHILS 83.6 % (42.8-82.8); PLATELET COUNT 65 K/MM3 (134-434); RDW 17.9 % (11.9-15.9); WHITE BLOOD COUNT 6.1 K/mm3 (4.0-10.0)
[2017-06-06 08:46] LABS: ANION GAP 2 (8-16); CALCIUM 8.7 mg/dL (8.5-10.1); CO2 40 mmol/L (21-32); CREATININE 0.6 mg/dL (0.7-1.3); GLUCOSE,RANDOM 88 mg/dL (74-106); MAGNESIUM 2.1 mg/dL (1.8-2.4); PHOSPHOROUS 3.3 mg/dL (2.5-4.9)
[2017-06-06] MEDS: AMINO ACIDS/PROTEIN HYDROLYS 30 ML LIQUID.PKT PO SCH (08:47)
[2017-06-06] MEDS: TAMSULOSIN HCL 0.4 MG CAP.ER.24H (FP) PO SCH (08:47)
[2017-06-06] MEDS: CHOLECALCIFEROL (VITAMIN D3) 1,000 UNIT TABLET (FP) PO SCH (09:32)
[2017-06-06] MEDS: RANITIDINE HCL 150 MG TABLET (FP) PO SCH (09:32)
[2017-06-06] MEDS: FUROSEMIDE 40 MG TABLET (FP) PO SCH (09:32)
[2017-06-06] MEDS: LACTOBACILLUS ACIDOPHILUS 1 EACH TAB (FP) PO SCH (09:32)
[2017-06-06] MEDS: SENNOSIDES 8.6MG TABLET (FP) PO SCH (09:32)
[2017-06-06] MEDS: GABAPENTIN 300 MG CAPSULE (FP) PO SCH (09:33)
[2017-06-06] MEDS: METOPROLOL TARTRATE 25 MG TABLET (FP) PO SCH (09:33)
[2017-06-06] MEDS: predniSONE 10 MG TABLET (UD) PO SCH (09:33)
[2017-06-06] MEDS: BRIMONIDINE TARTRATE 0.15% OPHTHALMIC 5 ML BOTTLE OD SCH (09:43)
[2017-06-06] MEDS: TIOTROPIUM BROMIDE 18 MCG/INH (DEVICE W/ 5 CAPSULES) IH SCH (09:44)
[2017-06-06] MEDS: FLUTICASONE PROP 0.05% 16 GM NASAL SPRAY NS SCH (09:44)
[2017-06-06] MEDS ORDERED: PT OWN MED DRAWER 7, Y5N ONE ×3 (09:47→12:59)
--- NOTE | 2017-06-06 10:13 | PN ---
Progress Note (short form) - Note Progress Note: PULMONARY Denies shortness of breath, occasional dry cough but no wheezing. No fevers or chills. Last Vital Signs Temp Pulse Resp BP Pulse Ox 97.9 F 68 20 130/57 91 L 06/06/17 06:00 06/06/17 06:00 06/06/17 06:00 06/06/17 06:00 06/05/17 13:44 Gen: NAD at rest Heart: RRR Lung: decreased breath sounds at the bases Abd: soft, nontender Ext: no edema CBC, BMP 06/06/17 07:20 06/06/17 07:20 Active Medications Acetaminophen (Tylenol -) 650 mg PO Q6H PRN PRN Reason: FEVER OR PAIN Last Admin: 05/19/17 00:53 Dose: 650 mg Al Hydroxide/Mg Hydroxide (Mylanta Oral Suspension -) 30 ml PO Q6H PRN PRN Reason: INDIGESTION Last Admin: 05/13/17 13:00 Dose: 30 ml Albuterol/Ipratropium (Duoneb -) 1 amp NEB Q4H PRN PRN Reason: SHORTNESS OF BREATH Last Admin: 05/21/17 10:38 Dose: 1 amp Amino Acids (Prosource No Carb Liquid Pkt) 30 ml PO BID@0800,1730 [facility] Last Admin: 06/06/17 08:47 Dose: 30 ml Ascorbic Acid (Vitamin C -) 500 mg PO HS [facility] Last Admin: 06/05/17 21:30 Dose: 500 mg Atorvastatin Calcium (Lipitor -) 10 mg PO [facility] Last Admin: 06/05/17 21:29 Dose: 10 mg Brimonidine Tartrate (Alphagan 0.15% -) 1 drop OD BID [facility] Last Admin: 06/06/17 09:43 Dose: 1 drop Cholecalciferol (Vitamin D3 -) 1,000 unit PO DAILY [facility] Last Admin: 06/06/17 09:32 Dose: 1,000 unit Docusate Sodium (Colace -) 200 mg PO HS [facility] Last Admin: 06/05/17 21:28 Dose: 200 mg Duloxetine HCl (Cymbalta -) 60 mg PO [facility] Last Admin: 06/05/17 21:29 Dose: 60 mg Fluticasone Propionate (Flonase -) 2 spray NS DAILY [facility] Last Admin: 06/06/17 09:44 Dose: 1 sprays Furosemide (Lasix -) 40 mg PO DAILY [facility] Last Admin: 06/06/17 09:32 Dose: 40 mg Gabapentin (Neurontin -) 600 mg PO BID [facility] Last Admin: 06/06/17 09:33 Dose: 600 mg Lactobacillus Acidophilus (Bacid -) 1 tab PO DAILY [facility] Last Admin: 06/06/17 09:32 Dose: 1 tab Levothyroxine Sodium (Synthroid -) 50 mcg PO DAILY@0700 [facility] Last Admin: 06/06/17 06:54 Dose: 50 mcg Metoprolol Tartrate (Lopressor -) 25 mg PO BID [facility] Last Admin: 06/06/17 09:33 Dose: 25 mg Prednisone (Deltasone -) 10 mg PO DAILY [facility] Last Admin: 06/06/17 09:33 Dose: 10 mg Ranitidine HCl (Zantac -) 150 mg PO BID [facility] Last Admin: 06/06/17 09:32 Dose: 150 mg Senna (Senna -) 2 tab PO DAILY [facility] Last Admin: 06/06/17 09:32 Dose: 2 tab Tamsulosin HCl (Flomax -) 0.4 mg PO DAILY@0830 [facility] Last Admin: 06/06/17 08:47 Dose: 0.4 mg Tiotropium [place] (Spiriva -) 1 puff IH DAILY [facility] Last Admin: 06/06/17 09:44 Dose: 1 puff A/P Pneumonia treated Atrial Fibrillation LV Diastolic Dysfunction CAD HTN Hyperlipidemia - completed antibiotics - continue lasix - taper off prednisone - inhaled bronchodilators - rate controlled - anticoagulation being held due to hematuria
--- NOTE | 2017-06-06 11:49 | DS ---
Physical Examination Vital Signs: Vital Signs Temperature 36.6 C 06/06/17 06:00 Pulse Rate 68 06/06/17 06:00 Respiratory Rate 20 06/06/17 06:00 Blood Pressure 130/57 06/06/17 06:00 O2 Sat by Pulse Oximetry (%) 91 L 06/05/17 13:44 Constitutional: Yes: Well Nourished, No Distress, Calm Cardiovascular: Yes: Regular Rate and Rhythm. No: Gallop, Murmur, Rub Respiratory: Yes: Regular, CTA Bilaterally, On Nasal O2. No: Rales, Rhonchi, Wheezes Gastrointestinal: Yes: Normal Bowel Sounds, Soft. No: Distention, Tenderness Extremities: Yes: WNL Edema: No Labs: CBC, BMP 06/06/17 07:20 06/06/17 07:20 Discharge Summary Reason For Visit: SHORTNESS OF BREATH Current Active Problems Acute respiratory acidosis (Acute) Acute respiratory failure (Acute) CAD (coronary artery disease) (Acute) Dysphagia causing pulmonary aspiration with swallowing (Acute) Hematuria (Acute) Shortness of breath (Acute) Hospital Course: (1) Community acquired pneumonia Original reason for admission. Was admitted to the hospital and originally needed ICU placement. Seen by ID and treated with a full course of antibiotics. Currently resolved and no longer needing treatment (2) Respiratory acidosis Respiratory acidosis noted on admission with metabolic alkalosis as compensation. Seen by pulmonary, originally placed on bipap at night. With treatment of pneumonia this resolved. However recurred secondary to CHF exacerbation. On admission lasix was held but then was restarted and now at baseline (3) Atrial fibrillation Rate controlled entire admission. Was on eliquis on admission, was changed to lovenox when had episode of aspiration. However developed ABLA secondary to hematuria so anticoagulation currently held. Will need outpatient follow up and evaluation if can be restarted. Code(s): I48.91 - UNSPECIFIED ATRIAL FIBRILLATION Qualifiers: Atrial fibrillation type: chronic Qualified Code(s): I48.2 - Chronic atrial fibrillation (4) CHF (congestive heart failure) Originally on lasix as an outpatient, was held originally secondary to pneumonia. Now back on lasix 40mg daily Code(s): I50.9 - HEART FAILURE, UNSPECIFIED Qualifiers: Congestive heart failure type: unspecified congestive heart failure type Congestive heart failure chronicity: chronic Qualified Code(s): I50.9 - Heart failure, unspecified (5) GERD (gastroesophageal reflux disease) Continue Zantac Code(s): K21.9 - GASTRO-ESOPHAGEAL REFLUX DISEASE WITHOUT ESOPHAGITIS (6) HTN (hypertension) Continue regimen as outlined in this discharge summary Code(s): I10 - ESSENTIAL (PRIMARY) HYPERTENSION (7) Hyperlipemia Continue lipitor, can restart fenofibrate on discharge Code(s): E78.5 - HYPERLIPIDEMIA, UNSPECIFIED (8) Hypothyroidism Was continued on synthroid Code(s): E03.9 - HYPOTHYROIDISM, UNSPECIFIED (9) PVD (peripheral vascular disease) Has history of PVD, was on eliquis however this was held secondary to hematuria. Monitor for symptoms of claudication as an outpatient and to follow up with cardiology concerning anticoagulation Code(s): I73.9 - PERIPHERAL VASCULAR DISEASE, UNSPECIFIED (10) Urinary retention Patient developed urinary retention secondary to sepsis. Nelson placed and started on flomax. continue flomax, nelson removed and retention resolved (11) Metabolic encephalopathy Hospitalization complicated by multiple episodes of AMS. First secondary to sepsis, then . Currently at baseline (12) Acute respiratory failure Patient presented with respiratory failure secondary to pneumonia and then CHF exacerbation. ? if has underlying COPD, this should be evaluated as an outpatient. Pulmonary consulted and following along, on bronchodilators. Finished full course of steroids with taper (13) Anemia Patient had anemia secondary to hematuria. This resolved after anticoagulation was stopped. Occurred a second time, both hematology and GI consulted. No source of bleeding found. Currently improving. Continue iron supplementation (14) Thrombocytopenia Developed thrombocytopenia secondary to sepsis. HIT antibodies checked and negative. Improved, but worsened again. Hematology evaluated and felt was transient. Currently improving and should have weekly CBCs (15) Hematuria Patient developed sam hematuria causing anemia. Anticoagulation held and resolved. Urology consulted and no need for intervention. If has recurrence will need urology evaluation 42 minutes spent in preparation of this discharge Condition: Stable - Instructions Diet, Activity, Other Instructions: dysphagia puree, thin out to nectar consistency with added liquid. Continue speech therapy and physical therapy. Daily CBC to monitor H/H and platelets until stable Referrals: Willy Troncoso MD [Primary Care Provider] - Disposition: [facility] - Home Medications Comprehensive Discharge Medication List: Ambulatory Orders Ascorbic Acid [Vitamin C] 500 mg PO HS 12/12/15 Atorvastatin Ca [Lipitor] 10 mg PO HS 12/12/15 Brimonidine Tartrate [Alphagan 0.15% -] 1 drop OD BID 12/12/15 Cholecalciferol (Vitamin D3) [Vitamin D3] 1,000 unit PO DAILY 12/12/15 Docusate Sodium [Colace -] 200 mg PO HS 12/12/15 Duloxetine HCl [Cymbalta] 60 mg PO HS 12/12/15 Fenofibrate Nanocrystallized [Tricor] 145 mg PO DAILY 12/12/15 Ferrous Sulfate [Slow Release Iron] 45 mg PO DAILY 12/12/15 Fluticasone Prop 0.05% Nasal [Flonase -] 2 spray NS DAILY 12/12/15 Levomefolate/B6/B12/Algal Oil [Metanx Capsule] 1 each PO BID 12/12/15 Levothyroxine [Synthroid -] 50 mcg PO DAILY 12/12/15 Magnesium Chloride [Magnesium Dr] 64 mg PO DAILY 12/12/15 Potassium Chloride 20 meq PO DAILY 12/12/15 Sennosides [Senna Concentrate] 17.2 mg PO DAILY 12/12/15 Gabapentin 600 mg PO BID 05/08/17 Melatonin 3 mg PO DAILY 05/08/17 Acetaminophen [Tylenol .Regular Strength -] 650 mg PO Q6H PRN #0 tablet Albuterol 2.5/Ipratropium 0.5 [Duoneb -] 1 amp NEB Q4H PRN #0 amp 06/06/17 Amino Acids/Protein Hydrolys [Prosource No Carb Liquid Pkt] 30 ml PO BID@0800, 1730 packet 06/06/17 Furosemide [Lasix -] 40 mg PO DAILY tablet 06/06/17 Metoprolol Tartrate [Lopressor -] 25 mg PO BID tablet 06/06/17 Ranitidine [Zantac -] 150 mg PO BID tablet 06/06/17 Tamsulosin HCl [Flomax -] 0.4 mg PO DAILY@0830 cap.sr 06/06/17 Tiotropium [place] [Spiriva] 1 puff IH DAILY inh 06/06/17
[2017-06-06 13:55] VITALS: BP 113/56; PULSE 67; TEMP 98.6
--- NOTE | 2017-06-06 14:00 | PN ---
Progress Note, Physician History of Present Illness: stable no issues plan to go to rehab - Current Medication List Current Medications: Active Medications Acetaminophen (Tylenol -) 650 mg PO Q6H PRN PRN Reason: FEVER OR PAIN Last Admin: 05/19/17 00:53 Dose: 650 mg Al Hydroxide/Mg Hydroxide (Mylanta Oral Suspension -) 30 ml PO Q6H PRN PRN Reason: INDIGESTION Last Admin: 05/13/17 13:00 Dose: 30 ml Albuterol/Ipratropium (Duoneb -) 1 amp NEB Q4H PRN PRN Reason: SHORTNESS OF BREATH Last Admin: 05/21/17 10:38 Dose: 1 amp Amino Acids (Prosource No Carb Liquid Pkt) 30 ml PO BID@0800,1730 [facility] Last Admin: 06/06/17 08:47 Dose: 30 ml Ascorbic Acid (Vitamin C -) 500 mg PO HS [facility] Last Admin: 06/05/17 21:30 Dose: 500 mg Atorvastatin Calcium (Lipitor -) 10 mg PO [facility] Last Admin: 06/05/17 21:29 Dose: 10 mg Brimonidine Tartrate (Alphagan 0.15% -) 1 drop OD BID [facility] Last Admin: 06/06/17 09:43 Dose: 1 drop Cholecalciferol (Vitamin D3 -) 1,000 unit PO DAILY [facility] Last Admin: 06/06/17 09:32 Dose: 1,000 unit Docusate Sodium (Colace -) 200 mg PO HS [facility] Last Admin: 06/05/17 21:28 Dose: 200 mg Duloxetine HCl (Cymbalta -) 60 mg PO [facility] Last Admin: 06/05/17 21:29 Dose: 60 mg Fluticasone Propionate (Flonase -) 2 spray NS DAILY [facility] Last Admin: 06/06/17 09:44 Dose: 1 sprays Furosemide (Lasix -) 40 mg PO DAILY [facility] Last Admin: 06/06/17 09:32 Dose: 40 mg Gabapentin (Neurontin -) 600 mg PO BID [facility] Last Admin: 06/06/17 09:33 Dose: 600 mg Lactobacillus Acidophilus (Bacid -) 1 tab PO DAILY [facility] Last Admin: 06/06/17 09:32 Dose: 1 tab Levothyroxine Sodium (Synthroid -) 50 mcg PO DAILY@0700 [facility] Last Admin: 06/06/17 06:54 Dose: 50 mcg Metoprolol Tartrate (Lopressor -) 25 mg PO BID [facility] Last Admin: 06/06/17 09:33 Dose: 25 mg Prednisone (Deltasone -) 10 mg PO DAILY [facility] Last Admin: 06/06/17 09:33 Dose: 10 mg Ranitidine HCl (Zantac -) 150 mg PO BID [facility] Last Admin: 06/06/17 09:32 Dose: 150 mg Senna (Senna -) 2 tab PO DAILY [facility] Last Admin: 06/06/17 09:32 Dose: 2 tab Tamsulosin HCl (Flomax -) 0.4 mg PO DAILY@0830 [facility] Last Admin: 06/06/17 08:47 Dose: 0.4 mg Tiotropium [place] (Spiriva -) 1 puff IH DAILY [facility] Last Admin: 06/06/17 09:44 Dose: 1 puff - Objective Vital Signs: Vital Signs Temperature 98.6 F 06/06/17 13:51 Pulse Rate 67 06/06/17 13:51 Respiratory Rate 16 06/06/17 13:51 Blood Pressure 113/56 06/06/17 13:51 O2 Sat by Pulse Oximetry (%) 98 06/06/17 12:30 Constitutional: Yes: No Distress, Calm Neck: Yes: Supple, Trachea Midline Cardiovascular: Yes: Regular Rate and Rhythm Respiratory: Yes: Regular, CTA Bilaterally, On Nasal O2 Gastrointestinal: Yes: Normal Bowel Sounds, Soft Musculoskeletal: Yes: WNL Extremities: Yes: WNL Neurological: Yes: Alert, Oriented Psychiatric: Yes: Alert, Oriented Labs: CBC, BMP 06/06/17 07:20 06/06/17 07:20 INR, PTT INR 0.99 (0.82-1.09) 06/05/17 07:20 Fibrinogen 592.0 mg/dL (238-498) H 06/05/17 07:20 Assessment/Plan Problem List - Problems (1) Pneumonia Code(s): J18.9 - PNEUMONIA, UNSPECIFIED ORGANISM Qualifiers: Laterality: right Lung location: lower lobe of lung (2) Alkalosis, metabolic Code(s): E87.3 - ALKALOSIS (3) Atrial fibrillation Code(s): I48.91 - UNSPECIFIED ATRIAL FIBRILLATION Qualifiers: Atrial fibrillation type: chronic Qualified Code(s): I48.2 - Chronic atrial fibrillation (4) CHF (congestive heart failure) Code(s): I50.9 - HEART FAILURE, UNSPECIFIED Qualifiers: Congestive heart failure type: unspecified congestive heart failure type Congestive heart failure chronicity: chronic Qualified Code(s): I50.9 - Heart failure, unspecified (5) GERD (gastroesophageal reflux disease) Code(s): K21.9 - GASTRO-ESOPHAGEAL REFLUX DISEASE WITHOUT ESOPHAGITIS (6) HTN (hypertension) Code(s): I10 - ESSENTIAL (PRIMARY) HYPERTENSION (7) Hyperlipemia Code(s): E78.5 - HYPERLIPIDEMIA, UNSPECIFIED (8) Hypothyroidism Code(s): E03.9 - HYPOTHYROIDISM, UNSPECIFIED (9) PVD (peripheral vascular disease) Code(s): I73.9 - PERIPHERAL VASCULAR DISEASE, UNSPECIFIED Assessment/Plan (1) Community acquired pneumonia (2) Alkalosis, metabolic Code(s): E87.3 - ALKALOSIS (3) Atrial fibrillation Code(s): I48.91 - UNSPECIFIED ATRIAL FIBRILLATION Qualifiers: Atrial fibrillation type: chronic Qualified Code(s): I48.2 - Chronic atrial fibrillation (4) CHF (congestive heart failure) Code(s): I50.9 - HEART FAILURE, UNSPECIFIED Qualifiers: Congestive heart failure type: unspecified congestive heart failure type Congestive heart failure chronicity: chronic Qualified Code(s): I50.9 - Heart failure, unspecified (5) GERD (gastroesophageal reflux disease) Code(s): K21.9 - GASTRO-ESOPHAGEAL REFLUX DISEASE WITHOUT ESOPHAGITIS (6) HTN (hypertension) Code(s): I10 - ESSENTIAL (PRIMARY) HYPERTENSION (7) Hyperlipemia Code(s): E78.5 - HYPERLIPIDEMIA, UNSPECIFIED (8) Hypothyroidism Code(s): E03.9 - HYPOTHYROIDISM, UNSPECIFIED (9) PVD (peripheral vascular disease) Code(s): I73.9 - PERIPHERAL VASCULAR DISEASE, UNSPECIFIED anemia plan stable off of abx continue monitoring rest as per primary needs physio
== END 2017-06-06 15:01 | DRG 871 ==
LOC: JER 14:07 → JERBED 17:36 → JICU 05-09 04:40 → J4S 05-09 23:24 → J8W 05-22 18:58
PROVIDERS: ADMIT Internal Medicine; ATTEND Internal Medicine
PROC: 5A09557 Assistance with Respiratory Ventilation, Greater than 96 Consecutive Hours, Continuous Positive Airway Pressure (ICD-10-PCS; 2017-05-15)
PROC: 0CJS8ZZ Inspection of Larynx, Via Natural or Artificial Opening Endoscopic (ICD-10-PCS; 2017-05-18)
PROC: 30233N1 Transfusion of Nonautologous Red Blood Cells into Peripheral Vein, Percutaneous Approach (ICD-10-PCS; principal; 2017-05-23)
DX: A41.9 Sepsis, unspecified organism (principal); J18.9 Pneumonia, unspecified organism; G93.41 Metabolic encephalopathy; J96.01 Acute respiratory failure with hypoxia; E87.3 Alkalosis; I13.0 Hypertensive heart and chronic kidney disease with heart failure and stage 1 through stage 4 chronic kidney disease, or unspecified chronic kidney disease; I50.32 Chronic diastolic (congestive) heart failure; E87.2 Acidosis; J90 Pleural effusion, not elsewhere classified; J98.11 Atelectasis; R71.0 Precipitous drop in hematocrit; E78.5 Hyperlipidemia, unspecified; N18.2 Chronic kidney disease, stage 2 (mild); I73.89 Other specified peripheral vascular diseases; I25.10 Atherosclerotic heart disease of native coronary artery without angina pectoris; G62.89 Other specified polyneuropathies; K57.90 Diverticulosis of intestine, part unspecified, without perforation or abscess without bleeding; K64.8 Other hemorrhoids; K44.9 Diaphragmatic hernia without obstruction or gangrene; M21.371 Foot drop, right foot; I48.2 Chronic atrial fibrillation; K21.9 Gastro-esophageal reflux disease without esophagitis; E03.9 Hypothyroidism, unspecified; D64.9 Anemia, unspecified; M19.90 Unspecified osteoarthritis, unspecified site; R33.8 Other retention of urine; D72.829 Elevated white blood cell count, unspecified; R13.19 Other dysphagia; D69.6 Thrombocytopenia, unspecified; R31.0 Gross hematuria; Z87.891 Personal history of nicotine dependence; Z95.1 Presence of aortocoronary bypass graft; Z88.0 Allergy status to penicillin; Z96.653 Presence of artificial knee joint, bilateral; Z95.5 Presence of coronary angioplasty implant and graft; Z85.828 Personal history of other malignant neoplasm of skin; Z66 Do not resuscitate; Z79.52 Long term (current) use of systemic steroids
CPT/HCPCS: 36415; 36430; 36600; 70450-TC; 71010-TC; 71020-TC; 71250-TC; 74178-TC; 74230-TC; 80048; 80053; 80076; 81003; 81015; 82607; 82728; 82746; 82803; 83540; 83550; 83605; 83735; 83880; 84100; 84443; 84466; 84484; 85025; 85027; 85384; 85610; 85730; 86022; 86140; 86850; 86900; 86901; 86922; 87040; 87070; 87081; 87086; 87205; 87899; 92611-GN; 93005; 93010; 93306-TC; 94010; 94640; 94660; 94761; 97116-GP; 97161-GP; 99285-25; G0480; P9038; P9058; Q9967

== ENCOUNTER 2017-07-24 19:56 | Inpatient (IN) | payer OTHER ==
[2017-07-24 20:19] VITALS: BMI 22.1
[2017-07-24] MEDS ORDERED: ALBUTEROL SO4 2.5/IPRATROPIUM 0.5 INH SOL 3 ML VIAL.NEB. NEB ONE ×2 (20:23→20:31)
--- NOTE | 2017-07-24 20:36 | PDOC ---
History of Present Illness - General Chief Complaint: Weakness Stated Complaint: DIFF BREATHING Time Seen by Provider: 07/24/17 20:11 - History of Present Illness Initial Comments: 86 year old male with PMH of afib, CHF (EF 44% 05/09/17), HTN, HLD, PVD and skin cancer presenting with shortness of breath. He was recently admitted from 05/07- at [facility] for pneumonia which was treated in the ICU for a period of time. He was then recovering at [facility] for the past 6 weeks during which he was continued on oral antibiotics. He was recovering well until he was discharged home two days prior. [facility] he has had slightly increased shortness of breath while laying flat at night that immediately improves while sitting up and increased difficulty with ambulation secondary to the same shortness of breath. He did take his lasix at home this morning but was unable to get his nebulizer treatment. He presented with SATs in the mid 90s on non-rebreather after switching to our monitor in the ED as the EMS monitor was without waveform reading in the lower 80s. 07/24/17 20:35 Past History - Past Medical History Allergies/Adverse Reactions: Allergies Allergy/AdvReac Type Severity Reaction Status Date / Time Penicillins Allergy Intermediate Rash Verified 07/24/17 20:20 Home Medications: Ambulatory Orders Atorvastatin Ca [Lipitor] 10 mg PO HS 12/12/15 Docusate Sodium [Colace -] 200 mg PO HS 12/12/15 Duloxetine HCl [Cymbalta] 60 mg PO HS 12/12/15 Fenofibrate Nanocrystallized [Tricor] 145 mg PO DAILY 12/12/15 Ferrous Sulfate [Slow Release Iron] 45 mg PO DAILY 12/12/15 Fluticasone Prop 0.05% Nasal [Flonase -] 2 spray NS DAILY 12/12/15 Levomefolate/B6/B12/Algal Oil [Metanx Capsule] 1 each PO BID 12/12/15 Levothyroxine [Synthroid -] 50 mcg PO DAILY 12/12/15 Potassium Chloride 20 meq PO DAILY 12/12/15 Sennosides [Senna Concentrate] 17.2 mg PO DAILY 12/12/15 Gabapentin 600 mg PO BID 05/08/17 Melatonin 3 mg PO DAILY 05/08/17 Acetaminophen [Tylenol .Regular Strength -] 650 mg PO Q6H PRN #0 tablet Albuterol 2.5/Ipratropium 0.5 [Duoneb -] 1 amp NEB Q4H PRN #0 amp 06/06/17 Furosemide [Lasix -] 40 mg PO DAILY tablet 06/06/17 Metoprolol Tartrate [Lopressor -] 25 mg PO BID tablet 06/06/17 Ranitidine [Zantac -] 150 mg PO BID tablet 06/06/17 Tamsulosin HCl [Flomax -] 0.4 mg PO DAILY@0830 cap.sr 06/06/17 Tiotropium [place] [Spiriva] 1 puff IH DAILY inh 06/06/17 Magnesium l-Lactate [Mag-Tab Sr] 84 mg PO DAILY 07/24/17 Anemia: No Asthma: No Cancer: No Cardiac Disorders: Yes (AFIB) CVA: No COPD: Yes CHF: Yes Dementia: No Diabetes: No GI Disorders: No Disorders: No HTN: Yes Hypercholesterolemia: Yes Liver Disease: No Seizures: No Thyroid Disease: Yes (HYPOTHYROIDISM) - Surgical History Abdominal Surgery: No Appendectomy: No Cardiac Surgery: Yes (STENTS) Cholecystectomy: Yes (OPEN) Lung Surgery: Yes (R LUNG SX, NO CA) Neurologic Surgery: No Orthopedic Surgery: Yes (LAMINECTOMY, DAVIN KNEE REPLACEMENT) - Immunization History Td Vaccination: Yes Immunization Up to Date: Yes - Suicide/Smoking/Psychosocial Hx Smoking Status: Yes Smoking History: Former smoker Have you smoked in the past 12 months: No Number of Cigarettes Smoked Daily: 0 If you are a former smoker, when did you quit?: 1984 Cigars Per Day: 0 Information on smoking cessation initiated: No Hx Alcohol Use: No Drug/Substance Use Hx: No Substance Use Type: None Hx Substance Use Treatment: No Review of Systems - Review of Systems Constitutional: No: Chills, Diaphoresis, Fever Respiratory: Yes: Shortness of Breath. No: Cough, Wheezing, Productive cough Cardiac (ROS): No: Chest Pain, Chest Tightness Neurological: No: Headache, Numbness *Physical Exam - Vital Signs Last Vital Signs Temp Pulse Resp BP Pulse Ox 98.6 F 72 18 137/86 97 07/24/17 20:16 07/24/17 20:16 07/24/17 20:16 07/24/17 20:16 07/24/17 20:16 - Physical Exam General Appearance: Yes: Nourished, Appropriately Dressed. No: Apparent Distress HEENT: positive: EOMI, [place], Normal ENT Inspection, Normal Voice Neck: positive: Trachea midline, Normal Thyroid, Supple. negative: Tender, Rigid Respiratory/Chest: positive: Crackles (Bilateral bases). negative: Chest Tender , Lungs Clear, Normal Breath Sounds, Respiratory Distress, Accessory Muscle Use Cardiovascular: positive: Irregularly Irregular. negative: Regular Rhythm, Regular Rate Gastrointestinal/Abdominal: positive: Normal Bowel Sounds, Flat, Soft. negative : Tender Musculoskeletal: positive: Normal Inspection Extremity: positive: Normal Inspection, Normal Range of Motion Integumentary: positive: Normal Color, Dry, Warm Neurologic: positive: composition mixer II-XII NML intact, Fully Oriented, Alert, Normal Mood/ Affect. negative: Motor Strength 5/5 (generally fairly weak) ED Treatment Course - LABORATORY CBC & Chemistry Diagram: 07/24/17 20:40 07/24/17 21:15 - RADIOLOGY Radiology Studies Ordered: Category Date Time Status CHEST X-RAY PORTABLE* [RAD] Stat Radiology 07/24/17 20:18 Ordered Medical Decision Making - Medical Decision Making 86 year old male with shortness of breath while laying flat and dyspnea on exertion with known pneumonia. This is most likely CHF vs. PNA. Also possibly COPD exacerbation although he does not carry an official diagnosis of COPD he does have 20 year smoking history. CXR demonstrating possible slight fluid overload with interval resolution of LL PNA on my read with official read pending. However, definite bilateral lower lobe crackles so given lasix 40, dose of duonebs for suspected COPD. SATing 100% on RA after duonebs and appears comfortable. Will hold steroids to discretion of admitting [facility] who was signed out the patient at 23:30. Labs significant for WBC of 10 without left shift and BNP of 19K but it has been as high as 27K in the past. EKG demonstrating afib with RBBB and LaFB which are known from previous EKGs. Generally unchanged. 07/24/17 23:53 *DC/Admit/Observation/Transfer Diagnosis at time of Disposition: Acute congestive heart failure Qualifiers: Congestive heart failure type: systolic Qualified Code(s): I50.21 - Acute systolic (congestive) heart failure - Discharge Dispostion Condition at time of disposition: Improved Admit: Yes - Referrals Referrals: Willy Troncoso MD [Primary Care Provider] - - Patient Instructions - Post Discharge Activity
[2017-07-24 20:48] LABS: MCH 33.6 pg (25.7-33.7); MCHC 33.6 g/dl (32.0-35.9); MEAN CELL VOLUME 100.2 fl (80-96); MEAN PLT VOLUME 8.4 fl (7.5-11.1); PLATELET COUNT 223 K/MM3 (134-434); RDW 18.7 % (11.9-15.9); WHITE BLOOD COUNT 10.6 K/mm3 (4.0-10.0)
--- NOTE | 2017-07-24 21:40 | PDOC ---
Attending Attestation - HPI HPI: 07/24/17 21:45 The patient is a 86 year old male, with a significant past medical history of afib, CHF, HTN, HLD, PVD and skin cancerwho presents to the emergency department with new onset of exertional dyspnea, orthopnea, generalized weakness and fatigue s/p discharge from [facility] yesterday. The patient was admitted to this hospital for about a months time for pneumonia and CHF which was followed by a 6 week stay at [facility]. He reports he is currently taking Levoflox. He reports feeling short of breath with lying flat which is alleviated with sitting upright. The patient also reports he walks is more SOB with walking. He reports feeling generally weak and tired today. He denies cough, chest pain, headache and dizziness. He denies fever, chills, nausea, vomit, diarrhea and constipation. He denies dysuria, frequency, urgency and hematuria. Allergies: penicillins PCP: Dr. Troncoso Documentation prepared by Charmaine Paul, acting as bilingual medical assistant for Delfino Stephenson DO <Charmaine Paul - Last Filed: 07/24/17 21:46> - Resident Resident Name: Dagoberto Munroe - ED Attending Attestation I have performed the following: I have examined & evaluated the patient, The case was reviewed & discussed with the resident, I agree w/resident's findings & plan, Exceptions are as noted - Physicial Exam PE: 07/24/17 22:13 Physical Exam General Appearance: Yes: Appropriately Dressed. No: Apparent Distress, Intoxicated HEENT: positive: EOMI, ENRICO, Normal ENT Inspection, Normal Voice, TMs Normal, Pharynx Normal. negative: Pale Conjunctivae, Photophobia, Scleral Icterus (R), Scleral Icterus (L) Neck: positive: Trachea midline, Normal Thyroid, Supple. negative: Tender, Rigid, Carotid bruit, Stridor, Lymphadenopathy (R), Lymphadenopathy (L), Thyromegaly Respiratory/Chest: positive: crackles at bilateral bases negative: Chest Tender , Respiratory Distress, Accessory Muscle Use, Labored Respiration, RES, C, Rhonchi, Stridor, Wheezing, Dullness Cardiovascular: positive: Regular Rhythm, Regular Rate, S1, S2. negative: Edema , JVD, Murmur, Bradycardia, Tachycardia Vascular Pulses: Dorsalis-Pedis (R): 2+, Doralis-Pedis (L): 2+ Gastrointestinal/Abdominal: positive: Normal Bowel Sounds, Flat, Soft. negative : Tender, Organomegaly, Pulsatile Mass, Increased Bowel Sounds, Decreased BS, Distended, Guarding, Rebound, Hernia, Hepatomegaly, Spleenomegaly Lymphatic: negative: Adenopathy, Tenderness Musculoskeletal: positive: Normal Inspection. negative: CVA Tenderness, Decreased Range of Motion Extremity: positive: Normal Capillary Refill, Normal Inspection, Normal Range of Motion, Pelvis Stable. negative: Tender, Pedal Edema, Swelling, Erythema Integumentary: positive: Normal Color, Dry, Warm. negative: Cyanotic, Erythema , Jaundice, Rash Neurologic: positive: speech coach II-XII NML intact, Fully Oriented, Alert, Normal Mood/ Affect, Motor Strength 5/5. negative: EOM Palsy, Facial Droop, Sensory Deficit - Medical Decision Making 07/25/17 19:24 pt admitted for chf and possible pneumonia <Delfino Stephenson - Last Filed: 07/25/17 19:25>
[2017-07-24 21:54] LABS: ALBUMIN 2.8 g/dl (3.4-5.0); ANION GAP 7 (8-16); CALCIUM 8.2 mg/dL (8.5-10.1); CO2 36 mmol/L (21-32); CREATININE 1.1 mg/dL (0.7-1.3); GLUCOSE,RANDOM 117 mg/dL (74-106); SGOT/AST 20 U/L (15-37); SGPT/ALT 11 U/L (12-78)
[2017-07-24 21:56] LABS: ALK PHOS 41 U/L (45-117); BILIRUBIN,TOTAL 0.8 mg/dL (0.2-1.0); TOT PROT 5.6 g/dl (6.4-8.2)
[2017-07-24] MEDS ORDERED: FUROSEMIDE 40 MG/4 ML INJECTABLE VIAL IVPUSH ONE ×2 (22:40)
[2017-07-24 23:09] LABS: PLATELET ESTIMATE ADEQUATE
[2017-07-24] MEDS ORDERED: FUROSEMIDE 40 MG/4 ML INJECTABLE VIAL ONE (23:21)
[2017-07-25 00:37] LABS: TROPONIN I 0.07 ng/ml (0.00-0.05)
[2017-07-25] MEDS ORDERED: FUROSEMIDE 40 MG/4 ML INJECTABLE VIAL IVPUSH ONE (01:39)
[2017-07-25] MEDS ORDERED: ALBUTEROL SO4 2.5/IPRATROPIUM 0.5 INH SOL 3 ML VIAL.NEB. NEB PRN (01:41)
--- NOTE | 2017-07-25 02:03 | HP ---
CHIEF COMPLAINT: SOB PCP: Aba HISTORY OF PRESENT ILLNESS: This is a n 86 year old male with a recent hospitalization 05/08-06/06 for CHF and PNA followed by STR stay until 2 days ago. Pt has noticed that he has been getting increasingly SOB since DC home. Pt also reports that he has not received any nebulizers since DC as they were unavailable at home. Pt reports significant improvement in SOB after receiving nebulizer and lasix. ER course was notable for: (1) BNP 19,200 (2) Trop 0.07 (3) CXR with vascular congestion Recent Travel: pt denies PAST MEDICAL HISTORY: Afib CHF HTN HLD PVD hypothyroidism ?COPD peripheral neuropathy skin CA PAST SURGICAL HISTORY: skin CA removed left episcopalian cardiac stents CABG 3v 2004 L fem-pop bypass open cholecystetomy R lung sx, not cancerous B/L knee replacement Laminectomy orchiectomy age 18, due to trauma Social History: Smoking: quit 1983 Alcohol: pt denies at present, previous charts report h/o alcoholism Drugs: pt denies Family History: mother age 89, father age 91, both unknown causes or PMH no siblings Allergies Penicillins Allergy (Intermediate, Verified 07/24/17 20:20) Rash HOME MEDICATIONS: 3 Medication Instructions Recorded Atorvastatin Ca [Lipitor] 10 mg PO HS 12/12/15 Docusate Sodium [Colace -] 200 mg PO HS 12/12/15 Duloxetine HCl [Cymbalta] 60 mg PO HS 12/12/15 Fenofibrate Nanocrystallized 145 mg PO DAILY 12/12/15 [Tricor] Ferrous Sulfate [Slow Release Iron] 45 mg PO DAILY 12/12/15 Fluticasone Prop 0.05% Nasal 2 spray NS DAILY 12/12/15 [Flonase -] Levomefolate/B6/B12/Algal Oil 1 each PO BID 12/12/15 [Metanx Capsule] Levothyroxine [Synthroid -] 50 mcg PO DAILY 12/12/15 Potassium Chloride 20 meq PO DAILY 12/12/15 Sennosides [Senna Concentrate] 17.2 mg PO DAILY 12/12/15 Gabapentin 600 mg PO BID 05/08/17 Melatonin 3 mg PO DAILY 05/08/17 Acetaminophen [Tylenol .Regular 650 mg PO Q6H PRN #0 tablet 06/06/17 Strength -] Albuterol 2.5/Ipratropium 0.5 1 amp NEB Q4H PRN #0 amp 06/06/17 [Duoneb -] Furosemide [Lasix -] 40 mg PO DAILY tablet 06/06/17 Metoprolol Tartrate [Lopressor -] 25 mg PO BID tablet 06/06/17 Ranitidine [Zantac -] 150 mg PO BID tablet 06/06/17 Tamsulosin HCl [Flomax -] 0.4 mg PO DAILY@0830 cap.sr 06/06/17 Tiotropium [place] [Spiriva] 1 puff IH DAILY inh 06/06/17 Magnesium l-Lactate [Mag-Tab Sr] 84 mg PO DAILY 07/24/17 REVIEW OF SYSTEMS CONSTITUTIONAL: Absent: fever, chills, diaphoresis, generalized weakness, malaise, loss of appetite, weight change HEENT: Absent: rhinorrhea, nasal congestion, throat pain, throat swelling, difficulty swallowing, mouth swelling, ear pain, eye pain, visual changes CARDIOVASCULAR: Absent: chest pain, syncope, palpitations, irregular heart rate, lightheadedness , peripheral edema RESPIRATORY: Present: shortness of breath, orthopnea Absent: cough, dyspnea with exertion, wheezing, stridor, hemoptysis GASTROINTESTINAL: Absent: abdominal pain, abdominal distension, nausea, vomiting, diarrhea, constipation, melena, hematochezia GENITOURINARY: Absent: dysuria, frequency, urgency, hesitancy, hematuria, flank pain, genital pain MUSCULOSKELETAL: Absent: myalgia, arthralgia, joint swelling, back pain, neck pain SKIN: Absent: rash, itching, pallor HEMATOLOGIC/IMMUNOLOGIC: Absent: easy bleeding, easy bruising, lymphadenopathy, frequent infections ENDOCRINE: Absent: unexplained weight gain, unexplained weight loss, heat intolerance, cold intolerance NEUROLOGIC: Absent: headache, focal weakness or paresthesias, dizziness, unsteady gait, seizure, mental status changes, bladder or bowel incontinence PSYCHIATRIC: Absent: anxiety, depression, suicidal or homicidal ideation, hallucinations. PHYSICAL EXAMINATION Vital Signs - 24 hr 3 07/24/17 07/24/17 20:16 20:45 Temperature 98.6 F Pulse Rate 72 72 Respiratory 18 Rate Blood Pressure 137/86 O2 Sat by Pulse 97 98 Oximetry (%) GENERAL: Awake, alert, and oriented, in no acute distress. HEAD: Normal with no signs of trauma. healing wound left episcopalian ? cancer removal site? EYES: Pupils equal, round and reactive to light, extraocular movements intact, sclera anicteric, conjunctiva clear. No lid lag. EARS, NOSE, THROAT: Ears normal, nares patent, oropharynx clear without exudates. Moist mucous membranes. NECK: Normal range of motion, supple without lymphadenopathy, JVD, or masses. LUNGS: Breath sounds equal, clear to auscultation bilaterally. No wheezes. + crackles B/L bases. No accessory muscle use. HEART: Irregular rate and rhythm, normal S1 and S2 without murmur, rub or gallop. ABDOMEN: Soft, nontender, not distended, normoactive bowel sounds, no guarding, no rebound, no masses. No hepatomegaly or splenomegaly. MUSCULOSKELETAL: Normal range of motion at all joints. No bony deformities or tenderness. No CVA tenderness. UPPER EXTREMITIES: 2+ pulses, warm, well-perfused. No cyanosis. No clubbing. No peripheral edema. LOWER EXTREMITIES: 2+ pulses, warm, well-perfused. No calf tenderness. No peripheral edema right, trace left NEUROLOGICAL: Cranial nerves II-XII intact. Normal speech. Normal gait. PSYCHIATRIC: Cooperative. Good eye contact. Appropriate mood and affect. SKIN: Warm, dry, normal turgor, no rashes or lesions noted, normal capillary refill. Laboratory Results - last 24 hr 3 07/24/17 07/24/17 07/24/17 07/24/17 20:40 20:40 21:15 22:50 WBC 10.6 H D RBC 3.14 L D Hgb 10.6 L D Hct 31.5 L D MCV 100.2 H MCH 33.6 MCHC 33.6 RDW 18.7 H Plt Count 223 D MPV 8.4 Neutrophils % No Result Required. Neutrophils % (Manual) 80.0 Band Neutrophils % 6.0 Lymphocytes % No Result Required. Lymphocytes % (Manual) 3.0 L D Monocytes % (Manual) 7 Eosinophils % (Manual) 4.0 D Platelet Estimate Adequate Sodium Cancelled 140 Potassium Cancelled 3.8 Chloride Cancelled 97 L Carbon Dioxide Cancelled 36 H Anion Gap Cancelled 7 L BUN Cancelled 33 H Creatinine Cancelled 1.1 D Creat Clearance w eGFR Cancelled > 60 Random Glucose Cancelled 117 H D Calcium Cancelled 8.2 L Total Bilirubin Cancelled 0.8 AST Cancelled 20 D ALT Cancelled 11 L D Alkaline Phosphatase Cancelled 41 L Creatine Kinase 12 L Troponin I 0.07 H B-Natriuretic Peptide Cancelled 34699.75 H Total Protein Cancelled 5.6 L Albumin Cancelled 2.8 L ECG Atrial fibrillation with PVC or aberrantly conducted complexes vent rate 64, QTC 464 RBBB, LAFB, 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 pulmonary vascular congestion, no obvious infiltrate; official read pending ASSESSMENT/PLAN: 86yM with PMH Afib, CHF, HTN, HLD, PVD, ?COPD, hypothyroidism, peripheral neuropathy, skin CA, recent hospitalization for PNA presented to the ED with worsening SOB x 2 days. CHF exac - lasix 20 given in ED, will give additional 20mg IVP, start 40mg daily - cardiology consult Afib - pt tachy into 120s with activity, monitor on telemetry - cont home metoprolol HTN - bP stable, cont home lopressor HLD - cont home lipitor and tricor COPD - cont home spiriva, duoneb q4h PRN, change to standing if pt wheezing, none at present - await official CXR read - no active wheezing, no indication for steroids at present peripheral neuropathy - cont home cymbalta and gabapentin hypothyroid - TSH wnl 05/2017, cont home dose DVT PPX - defer unless LOS exceeds 24h FEN - no IVF - BMP in am - low sodium diet as tolerated Dispo: pt currently requires inpatient observation for management of his emergent condition. Visit type - Emergency Visit Emergency Visit: Yes ED Registration Date: 07/24/17 Care time: The patient presented to the Emergency Department on the above date and was hospitalized for further evaluation of their emergent condition. - New Patient This patient is new to me today: Yes Date on this admission: 07/25/17 - Critical Care Critical Care patient: No
[2017-07-25 02:09] LABS: URINE APPEARANCE CLEAR; URINE BILIRUBIN NEGATIVE (NEGATIVE); URINE BLOOD NEGATIVE (NEGATIVE); URINE COLOR LT. YELLOW; URINE GLUCOSE (UA) NEGATIVE (NEGATIVE); URINE KETONE NEGATIVE (NEGATIVE); URINE NITRITE NEGATIVE (NEGATIVE); URINE PROTEIN NEGATIVE (NEGATIVE); URINE UROBILINOGEN 0.2 mg/dL (0.2-1.0)
[2017-07-25] MEDS ORDERED: FUROSEMIDE 40 MG/4 ML INJECTABLE VIAL ONE (02:30)
[2017-07-25] MEDS: LEVOTHYROXINE NA 50 MCG TABLET (FP) PO SCH (05:59)
[2017-07-25 08:35] LABS: ANION GAP 6 (8-16); CALCIUM 8.5 mg/dL (8.5-10.1); CO2 37 mmol/L (21-32); GLUCOSE,RANDOM 89 mg/dL (74-106); MAGNESIUM 1.7 mg/dL (1.8-2.4)
[2017-07-25 08:40] LABS: MCH 33.4 pg (25.7-33.7); MCHC 33.4 g/dl (32.0-35.9); MEAN CELL VOLUME 100.1 fl (80-96); MEAN PLT VOLUME 8.5 fl (7.5-11.1); PLATELET COUNT 188 K/MM3 (134-434); RDW 18.5 % (11.9-15.9); WHITE BLOOD COUNT 9.8 K/mm3 (4.0-10.0)
--- NOTE | 2017-07-25 09:06 | HOSP ---
Physical Examination Vital Signs: Vital Signs Temperature 97.5 F L 07/25/17 03:20 Pulse Rate 77 07/25/17 03:20 Respiratory Rate 20 07/25/17 03:20 Blood Pressure 143/74 07/25/17 03:20 O2 Sat by Pulse Oximetry (%) 95 07/25/17 03:40 Findings/Remarks: Subjective: The patient was seen and examined at the bedside, he reports his shortness of breath has resolved. He denies any chest pain Trop 0.07, continue to trend Awaiting cardiology consult Current Medications Generic Name Dose Route Start Last Admin Trade Name Freq PRN Reason Stop Dose Admin Albuterol/Ipratropium 1 amp 07/25/17 01:41 Duoneb - NEB Q4H PRN SHORTNESS OF BREATH Atorvastatin Calcium 10 mg 07/25/17 22:00 Lipitor - PO HS MICHAEL Docusate Sodium 200 mg 07/25/17 22:00 Colace - PO HS MICHAEL Duloxetine HCl 60 mg 07/25/17 22:00 Cymbalta - PO HS MICHAEL Fenofibric Acid 135 mg 07/25/17 10:00 Trilipix - PO DAILY MICHAEL Ferrous Sulfate 325 mg 07/25/17 10:00 Feosol - PO DAILY [facility] Fluticasone Propionate 2 spray 07/25/17 10:00 Flonase - NS DAILY [facility] Furosemide 40 mg 07/25/17 10:00 Lasix Injection - IVPUSH DAILY [facility] Gabapentin 600 mg 07/25/17 10:00 Neurontin - PO BID MICHAEL Levothyroxine Sodium 50 mcg 07/25/17 07:00 07/25/17 05:59 Synthroid - PO 50 mcg DAILY@0700 MICHAEL Administration Magnesium Oxide 400 mg 07/25/17 09:01 Mag-Ox - PO 07/25/17 09:02 ONCE ONE Melatonin 3 mg 07/25/17 22:00 Melatonin PO HS MICHAEL Metoprolol Tartrate 25 mg 07/25/17 10:00 Lopressor - PO BID MICHAEL Potassium Chloride 20 meq 07/25/17 10:00 K-Dur - PO DAILY MICHAEL Potassium Chloride 40 meq 07/25/17 09:01 K-Dur - PO 07/25/17 09:02 ONCE ONE Ranitidine HCl 150 mg 07/25/17 10:00 Zantac - PO BID MICHAEL Senna 2 tab 07/25/17 10:00 Senna - PO DAILY MICHAEL Tamsulosin HCl 0.4 mg 07/25/17 08:30 Flomax - PO DAILY@0830 [facility] Tiotropium [place] 1 puff 07/25/17 10:00 Spiriva - IH DAILY MICHAEL Objective: Vital Signs Period Temp Pulse Resp BP Sys/Mitchell Pulse Ox Last 24 Hr 97.5 F-98.6 F 72-77 18-20 137-143/74-86 95-98 Physical Exam: General: NAD Lungs: CTA bilaterally Heart: RRR, S1S2 Abd: Soft, non-tender, non-distended. Normoactive bowel sounds Ext: Warm, well-perfused. 2+ DP/PT bilaterally CBCD WBC 9.8 K/mm3 (4.0-10.0) 07/25/17 06:30 RBC 3.11 M/mm3 (4.00-5.60) L 07/25/17 06:30 Hgb 10.4 GM/dL (11.7-16.9) L 07/25/17 06:30 Hct 31.1 % (35.4-49) L 07/25/17 06:30 MCV 100.1 fl (80-96) H 07/25/17 06:30 MCHC 33.4 g/dl (32.0-35.9) 07/25/17 06:30 RDW 18.5 % (11.9-15.9) H 07/25/17 06:30 Plt Count 188 K/MM3 (134-434) 07/25/17 06:30 MPV 8.5 fl (7.5-11.1) 07/25/17 06:30 CMP Sodium 138 mmol/L (136-145) 07/25/17 06:30 Potassium 3.1 mmol/L (3.5-5.1) L 07/25/17 06:30 Chloride 95 mmol/L (98-107) L 07/25/17 06:30 Carbon Dioxide 37 mmol/L (21-32) H 07/25/17 06:30 Anion Gap 6 (8-16) L 07/25/17 06:30 BUN 29 mg/dL (7-18) H 07/25/17 06:30 Creatinine 1.0 mg/dL (0.7-1.3) 07/25/17 06:30 Creat Clearance w eGFR > 60 (>60) 07/24/17 21:15 Random Glucose 89 mg/dL (74-106) D 07/25/17 06:30 Calcium 8.5 mg/dL (8.5-10.1) 07/25/17 06:30 Total Bilirubin 0.8 mg/dL (0.2-1.0) 07/24/17 21:15 AST 20 U/L (15-37) D 07/24/17 21:15 ALT 11 U/L (12-78) L D 07/24/17 21:15 Alkaline Phosphatase 41 U/L (45-117) L 07/24/17 21:15 Total Protein 5.6 g/dl (6.4-8.2) L 07/24/17 21:15 Albumin 2.8 g/dl (3.4-5.0) L 07/24/17 21:15 CARDIAC ENZYMES Creatine Kinase 12 IU/L (39-308) L 07/24/17 22:50 Troponin I 0.07 ng/ml (0.00-0.05) H 07/24/17 22:50 Imaging: Chest X-ray: decreased congestive changes. No pleural effusions Assessment: This is an 86 year old male with PMHx of A.fib, CHF, HTN, hyperlipidemia, PVD, COPD, hypothyroidism, peripheral neuropathy, skin cancer, recent hospitalization for pneumonia who presented to the ED with worsening shortness of breath for 2 days. Plan: 1) Acute diastolic chf exacerbation - Chest x-ray as above - Continue Lasix 40mg IVP daily - Daily weights - Strict I&O - ECHO 05/2017: mild, global LV hypo; nl RV; mild MR; mild ao root dilation (no RVSP) - F/u cardiology consult 2) A.fib - Rate controlled - Continue Lopressor - Anticoagulation discontinued during admission 05/2017 2/2 hematuria. Does not appear to be restarted as an outpatient. F/u cardiology for further recommendations, will def starting anticoagulation to cards 3) HTN - Continue Lopressor 4) Hyperlipidemia - Continue Lipitor - Continue Trilipix 5) COPD - No evidence of active exacerbation at this time - Continue Spiriva - Continue Duonebs 6) Hypothyroidism - Continue Synthroid 7) F/E/N: - Hypokalemia: replete - Hypomagnesemia: replete - Dysphagia pureed diet - Monitor electrolytes 8) Prophylaxis: - Heparin 5,000u sq bid 9) Dispo: - Requires continued inpatient care CODE STATUS: FULL CODE Labs: CBC, BMP 07/25/17 06:30 07/25/17 06:30
[2017-07-25 09:52] LABS: TROPONIN I 0.06 ng/ml (0.00-0.05)
[2017-07-25] MEDS ORDERED: METOPROLOL TARTRATE 25 MG TABLET (FP) PO SCH (10:00)
[2017-07-25] MEDS ORDERED: MAGNESIUM OXIDE 400 MG TABLET (FP) PO ONE (10:00)
[2017-07-25] MEDS ORDERED: POTASSIUM CHLORIDE TABS 20 MEQ TABLET.ER (FP) PO ONE (10:00)
[2017-07-25] MEDS ORDERED: PATIENT'S OWN MEDICATION (NON-FORMULARY) (Levomefolate/B6/B12/Algal Oil [Metanx Capsule] 1 PO SCH (10:00)
[2017-07-25] MEDS: HEPARIN NA (PORCINE) 5,000 UNITS/ML 1ML VIAL SQ SCH ×2 (10:02→22:22)
[2017-07-25] MEDS: FENOFIBRIC ACID 135 MG CAP PO SCH (10:02)
[2017-07-25] MEDS: POTASSIUM CHLORIDE TABS 20 MEQ TABLET.ER (FP) PO SCH (10:02)
[2017-07-25] MEDS: FERROUS SO4 325 MG TABLET (FP) PO SCH (10:02)
[2017-07-25] MEDS: GABAPENTIN 300 MG CAPSULE (FP) PO SCH ×2 (10:03→22:22)
[2017-07-25] MEDS: SENNOSIDES 8.6MG TABLET (FP) PO SCH (10:03)
[2017-07-25] MEDS: TAMSULOSIN HCL 0.4 MG CAP.ER.24H (FP) PO SCH (10:03)
[2017-07-25] MEDS: RANITIDINE HCL 150 MG TABLET (FP) PO SCH ×2 (10:03→22:22)
[2017-07-25] MEDS: FUROSEMIDE 40 MG/4 ML INJECTABLE VIAL IVPUSH SCH (10:03)
[2017-07-25 10:13] LABS: TOTAL CELLS COUNTED 100
[2017-07-25 10:14] LABS: METAMYELOCYTE 1 % (0-2); PLATELET ESTIMATE ADEQUATE
[2017-07-25 12:04] LABS: URINE LEUK ESTERASE Negative (NEGATIVE)
[2017-07-25] MEDS ORDERED: PT OWN MED DRAWER 7, Y5N ONE (13:40)
[2017-07-25] MEDS: TIOTROPIUM BROMIDE 18 MCG/INH (DEVICE W/ 5 CAPSULES) IH SCH (13:52)
[2017-07-25] MEDS: FLUTICASONE PROP 0.05% 16 GM NASAL SPRAY NS SCH (13:52)
--- NOTE | 2017-07-25 16:54 | CON.CARD ---
Cardiology Consult (text) - Consultation Consultation Note: Chief Complaint: sob History of Present Illness: This is a 86 yo with h/o prior cerebellar infarct, CKD, CAD s/p pci to rca 2004 (patent on cath 2006), PVD s/p le bypass/stents, HTN, Afib on AC, here with sob. recent hospitalization 05/08-06/06 for CHF and PNA followed by STR stay until a few days ago. Pt has noticed that he has been getting increasingly SOB since DC home. + orthopnea, + crook. + productive cough. No cp, palps, dizzy, loc, pnd, le edema, bleeding. + bruising no f/c/s, n/v/d, h/a, rashes, congestion. Sees Dr. Up for cardio. - Past Medical History Cardio/Vascular: Yes: AFIB, CAD, CHF, HTN, Hyperlipdemia Gastrointestinal: Yes: Diverticulosis, GI Bleed (history), Hemorrhoids (internal ), Hiatal Hernia Renal/: Yes: Renal Inusuff Musculoskeletal: Yes: Osteoarthritis, Other (right foot drop) Dermatology: Yes: Basal Cell (face) - Past Surgical History Past Surgical History: Yes: Bypass (left fem-pop), CABG (x3 2004), Cholecystectomy, Joint Replacement (bilateral knees) - Alcohol/Substance Use Hx Alcohol Use: No History of Substance Use: reports: None - Smoking History ex-smoker - Social History Usual Living Arrangement: With Spouse ADL: Support Services (In [place] post) 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) Family Disease History - Family Disease History Family Disease History: CA: Son (1 son from cancer, 1 son from alcohol abuse), Other: Son ros: per hpi Ambulatory Orders Atorvastatin Ca [Lipitor] 10 mg PO HS 12/12/15 Docusate Sodium [Colace -] 200 mg PO HS 12/12/15 Duloxetine HCl [Cymbalta] 60 mg PO HS 12/12/15 Fenofibrate Nanocrystallized [Tricor] 145 mg PO DAILY 12/12/15 Ferrous Sulfate [Slow Release Iron] 45 mg PO DAILY 12/12/15 Fluticasone Prop 0.05% Nasal [Flonase -] 2 spray NS DAILY 12/12/15 Levomefolate/B6/B12/Algal Oil [Metanx Capsule] 1 each PO BID 12/12/15 Levothyroxine [Synthroid -] 50 mcg PO DAILY 12/12/15 Potassium Chloride 20 meq PO DAILY 12/12/15 Sennosides [Senna Concentrate] 17.2 mg PO DAILY 12/12/15 Gabapentin 600 mg PO BID 05/08/17 Melatonin 3 mg PO DAILY 05/08/17 Acetaminophen [Tylenol .Regular Strength -] 650 mg PO Q6H PRN #0 tablet Albuterol 2.5/Ipratropium 0.5 [Duoneb -] 1 amp NEB Q4H PRN #0 amp 06/06/17 Furosemide [Lasix -] 40 mg PO DAILY tablet 06/06/17 Metoprolol Tartrate [Lopressor -] 25 mg PO BID tablet 06/06/17 Ranitidine [Zantac -] 150 mg PO BID tablet 06/06/17 Tamsulosin HCl [Flomax -] 0.4 mg PO DAILY@0830 cap.sr 06/06/17 Tiotropium [place] [Spiriva] 1 puff IH DAILY inh 06/06/17 Magnesium l-Lactate [Mag-Tab Sr] 84 mg PO DAILY 07/24/17 Current Medications Albuterol/Ipratropium (Duoneb -) 1 amp NEB Q4H PRN PRN Reason: SHORTNESS OF BREATH Atorvastatin Calcium (Lipitor -) 10 mg PO HS MICHAEL Docusate Sodium (Colace -) 200 mg PO HS MICHAEL Duloxetine HCl (Cymbalta -) 60 mg PO HS MICHAEL Fenofibric Acid (Trilipix -) 135 mg PO DAILY [facility] Last Admin: 07/25/17 10:02 Dose: 135 mg Ferrous Sulfate (Feosol -) 325 mg PO DAILY [facility] Last Admin: 07/25/17 10:02 Dose: 325 mg Fluticasone Propionate (Flonase -) 2 spray NS DAILY [facility] Last Admin: 07/25/17 13:52 Dose: 2 spray Furosemide (Lasix Injection -) 40 mg IVPUSH DAILY [facility] Last Admin: 07/25/17 10:03 Dose: 40 mg Gabapentin (Neurontin -) 600 mg PO BID [facility] Last Admin: 07/25/17 10:03 Dose: 600 mg Heparin Sodium (Porcine) (Heparin -) 5,000 unit SQ BID [facility] Last Admin: 07/25/17 10:02 Dose: 5,000 unit Levothyroxine Sodium (Synthroid -) 50 mcg PO DAILY@0700 [facility] Last Admin: 07/25/17 05:59 Dose: 50 mcg Melatonin (Melatonin) 3 mg PO [facility] Metoprolol Tartrate (Lopressor -) 25 mg PO BID [facility] Last Admin: 07/25/17 10:03 Dose: 25 mg Potassium Chloride (K-Dur -) 20 meq PO DAILY [facility] Last Admin: 07/25/17 10:02 Dose: 20 meq Ranitidine HCl (Zantac -) 150 mg PO BID [facility] Last Admin: 07/25/17 10:03 Dose: 150 mg Senna (Senna -) 2 tab PO DAILY [facility] Last Admin: 07/25/17 10:03 Dose: 2 tab Tamsulosin HCl (Flomax -) 0.4 mg PO DAILY@0830 [facility] Last Admin: 07/25/17 10:03 Dose: 0.4 mg Tiotropium [place] (Spiriva -) 1 puff IH DAILY [facility] Last Admin: 07/25/17 13:52 Dose: 1 inh Vital Signs: Vital Signs - 24 hr 07/24/17 07/24/17 07/25/17 20:16 20:45 00:00 Temperature 98.6 F Pulse Rate 72 72 Respiratory 18 Rate Blood Pressure 137/86 O2 Sat by Pulse 97 98 95 Oximetry (%) 07/25/17 07/25/17 07/25/17 03:20 03:40 09:00 Temperature 97.5 F L Pulse Rate 77 Respiratory 20 Rate Blood Pressure 143/74 O2 Sat by Pulse 95 95 Oximetry (%) 07/25/17 07/25/17 10:00 14:00 Temperature 98 F 97.2 F L Pulse Rate 78 81 Respiratory 18 20 Rate Blood Pressure 130/78 127/62 O2 Sat by Pulse Oximetry (%) Intake & Output 07/23/17 07/24/17 07/25/17 07/26/17 07:59 07:59 07:59 07:59 Intake Total 450 Output Total 800 Balance -350 Weight 154 lb 9.6 oz 140 lb 4 oz nad no jvd irreg, s1s2 2/6 murmur at ctab, nl eff aaox3 no le e/c/c abd nt nd pos bs no jaundice diaphoresis pos dp pt no carotid bruits CBC, BMP 07/25/17 06:30 07/25/17 06:30 Laboratory Tests 05/21/17 05/31/17 07/24/17 11:10 07:02 20:40 Band Neutrophils % 6.0 Magnesium 2.0 Troponin I Albumin Hep-Induced Plt Ab Rapid 0.292 07/24/17 07/24/17 07/25/17 21:15 22:50 06:30 Band Neutrophils % 4.0 Magnesium Troponin I 0.07 H Albumin 2.8 L Hep-Induced Plt Ab Rapid 07/25/17 09:08 Band Neutrophils % Magnesium Troponin I 0.06 H Albumin Hep-Induced Plt Ab Rapid ecg : afib, with pvc's/aberrancy. lad, rbbb tele: rate controlled afib. intermittent wide complex runs that are likely aberrant conduction. occ pvc's. cxr: minimal improvement in congestive changes. echo 05/2017: mild, global LV hypo; nl RV; mild MR; mild ao root dilation (no RVSP) mibi 10/2016: no ischemia a/p: sob/acute diastolic hf exacerbation: -07/25 s/p lasix 20 mg IV x 1 and then 40 mg IV x 1. Sx's improving. con't for now with close monitoring of bp. - evaluation for non-cardiac etiology in setting of recent pna and + bandemia, per pmd. afib: - AC had been held on last admit fro hematuria and anemia/thrombocytopenia. Would clarify whether he was ever cleared to resume AC (not on home med list). - ASA for now. - rate controlled, cont low dose bb cad s/p remote pci: -stable -no signs acs -off AC as above. con't statin, bb. has been off acei due to low bp. adding asa htn: -stable, cont current meds. hld: -cont home statin,
[2017-07-25] MEDS: METOPROLOL TARTRATE 25 MG TABLET (FP) PO SCH ×2 (18:50→22:23)
--- NOTE | 2017-07-25 22:01 | EKG ---
Test Reason : Blood Pressure : / mmHG Vent. Rate : 064 BPM Atrial Rate : 053 BPM P-R Int : 000 ms QRS Dur : 156 ms QT Int : 450 ms P-R-T Axes : 000 -45 -16 degrees QTc Int : 464 ms POOR DATA QUALITY, INTERPRETATION MAY BE ADVERSELY AFFECTED ATRIAL FIBRILLATION WITH PREMATURE VENTRICULAR OR ABERRANTLY CONDUCTED COMPLEXES LEFT AXIS DEVIATION RIGHT BUNDLE BRANCH BLOCK ABNORMAL ECG WHEN COMPARED WITH ECG OF 09-MAY-2017 00:38, NO SIGNIFICANT CHANGE WAS FOUND Confirmed by LILO SMITH MD ([id number]) on 07/25/2017 10:01:32 PM Referred By: Confirmed By:LILO SMITH MD
[2017-07-25] MEDS: MELATONIN 1 MG TABLET PO SCH (22:21)
[2017-07-25] MEDS: ATORVASTATIN CA 10 MG TABLET (FP) PO SCH (22:22)
[2017-07-25] MEDS: DULoxetine HCL 30 MG CAPSULE.DR (FP) PO SCH (22:22)
[2017-07-25] MEDS: DOCUSATE SODIUM 100 MG CAPSULE (FP) PO SCH (22:22)
[2017-07-26] MEDS: ASPIRIN 81 MG CHEWABLE TABLETS PO SCH (06:21)
[2017-07-26] MEDS: LEVOTHYROXINE NA 50 MCG TABLET (FP) PO SCH (06:21)
[2017-07-26 07:02] LABS: MCH 32.3 pg (25.7-33.7); MCHC 32.5 g/dl (32.0-35.9); MEAN CELL VOLUME 99.3 fl (80-96); MEAN PLT VOLUME 8.7 fl (7.5-11.1); PLATELET COUNT 178 K/MM3 (134-434); RDW 18.5 % (11.9-15.9); WHITE BLOOD COUNT 13.3 K/mm3 (4.0-10.0)
[2017-07-26 07:18] LABS: ALBUMIN 2.5 g/dl (3.4-5.0); ANION GAP 6 (8-16); CALCIUM 8.1 mg/dL (8.5-10.1); CO2 36 mmol/L (21-32); GLUCOSE,RANDOM 91 mg/dL (74-106); MAGNESIUM 2.1 mg/dL (1.8-2.4)
[2017-07-26 07:25] LABS: ALK PHOS 37 U/L (45-117); BILIRUBIN,TOTAL 0.9 mg/dL (0.2-1.0); CPK 8 IU/L (39-308); CREATININE 1.2 mg/dL (0.7-1.3); SGOT/AST 14 U/L (15-37); SGPT/ALT 8 U/L (12-78); TOT PROT 5.1 g/dl (6.4-8.2); TROPONIN I 0.06 ng/ml (0.00-0.05)
[2017-07-26] MEDS: TAMSULOSIN HCL 0.4 MG CAP.ER.24H (FP) PO SCH (08:44)
[2017-07-26] MEDS: HEPARIN NA (PORCINE) 5,000 UNITS/ML 1ML VIAL SQ SCH ×2 (09:08→22:11)
[2017-07-26] MEDS: FENOFIBRIC ACID 135 MG CAP PO SCH (09:08)
[2017-07-26] MEDS: FUROSEMIDE 40 MG/4 ML INJECTABLE VIAL IVPUSH SCH (09:08)
[2017-07-26] MEDS: SENNOSIDES 8.6MG TABLET (FP) PO SCH (09:08)
[2017-07-26] MEDS: POTASSIUM CHLORIDE TABS 20 MEQ TABLET.ER (FP) PO SCH (09:08)
[2017-07-26] MEDS: METOPROLOL TARTRATE 25 MG TABLET (FP) PO SCH ×2 (09:09→22:14)
[2017-07-26] MEDS: GABAPENTIN 300 MG CAPSULE (FP) PO SCH ×2 (09:09→22:10)
[2017-07-26] MEDS: TIOTROPIUM BROMIDE 18 MCG/INH (DEVICE W/ 5 CAPSULES) IH SCH (09:10)
[2017-07-26] MEDS: FLUTICASONE PROP 0.05% 16 GM NASAL SPRAY NS SCH (09:10)
[2017-07-26] MEDS: FERROUS SO4 325 MG TABLET (FP) PO SCH (09:10)
[2017-07-26] MEDS: RANITIDINE HCL 150 MG TABLET (FP) PO SCH ×2 (09:11→22:11)
[2017-07-26] MEDS ORDERED: PT OWN MED DRAWER 7, Y5N ONE (10:37)
--- NOTE | 2017-07-26 10:41 | CON.ID ---
Consult Consult Specialty:: infectious diseases Reason for Consultation:: cellulittis of the toe - History of Present Illness Chief Complaint: pain and swelling of the great toe History of Present Illness: 86 year old male, with a significant past medical history of afib, CHF, HTN, HLD , PVD and skin cancerwho came with new onset of exertional dyspnea, orthopnea, generalized weakness and fatigue s/p discharge from [facility] yesterday. The patient was admitted to this hospital for about a months time for pneumonia and CHF which was followed by a 6 week stay at [facility]. He reports he is currently taking Levoflox. 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: Peripheral Neuropathy Cardio/Vascular: Yes: AFIB, CAD, CHF, HTN, Hyperlipdemia Pulmonary: Yes: Pneumonia Gastrointestinal: Yes: Diverticulosis, GI Bleed, Hemorrhoids, Hiatal Hernia Renal/: Yes: Renal Inusuff Infectious Disease: Yes: Other (previous sepsis) Musculoskeletal: Yes: Osteoarthritis, Other (right foot drop) ENT: Yes: Other (dysphagia, hoarseness, ) Dermatology: Yes: Basal Cell (face), Other (Left anabaptist with local extension and hematoma) - Past Surgical History Past Surgical History: Yes: Bypass (left fem-pop), CABG (x3 2004), Cholecystectomy, Joint Replacement (bilateral knees), Orchiectomy (unilateral for testicular injury at 18yrs of age) - Alcohol/Substance Use Hx Alcohol Use: No History of Substance Use: reports: None - Smoking History Smoking history: Former smoker Have you smoked in the past 12 months: No Aproximately how many cigarettes per day: 0 If you are a former smoker, when did you quit?: 1983 - Social History Usual Living Arrangement: With Spouse ADL: Support Services (In [place] post) 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) History of Recent Travel: No Home Medications - Allergies Allergies/Adverse Reactions: Allergies Allergy/AdvReac Type Severity Reaction Status Date / Time Penicillins Allergy Intermediate Rash Verified 07/24/17 20:20 - Home Medications Home Medications: Ambulatory Orders Atorvastatin Ca [Lipitor] 10 mg PO HS 12/12/15 Docusate Sodium [Colace -] 200 mg PO HS 12/12/15 Duloxetine HCl [Cymbalta] 60 mg PO HS 12/12/15 Fenofibrate Nanocrystallized [Tricor] 145 mg PO DAILY 12/12/15 Ferrous Sulfate [Slow Release Iron] 45 mg PO DAILY 12/12/15 Fluticasone Prop 0.05% Nasal [Flonase -] 2 spray NS DAILY 12/12/15 Levomefolate/B6/B12/Algal Oil [Metanx Capsule] 1 each PO BID 12/12/15 Levothyroxine [Synthroid -] 50 mcg PO DAILY 12/12/15 Potassium Chloride 20 meq PO DAILY 12/12/15 Sennosides [Senna Concentrate] 17.2 mg PO DAILY 12/12/15 Gabapentin 600 mg PO BID 05/08/17 Melatonin 3 mg PO DAILY 05/08/17 Acetaminophen [Tylenol .Regular Strength -] 650 mg PO Q6H PRN #0 tablet Albuterol 2.5/Ipratropium 0.5 [Duoneb -] 1 amp NEB Q4H PRN #0 amp 06/06/17 Furosemide [Lasix -] 40 mg PO DAILY tablet 06/06/17 Metoprolol Tartrate [Lopressor -] 25 mg PO BID tablet 06/06/17 Ranitidine [Zantac -] 150 mg PO BID tablet 06/06/17 Tamsulosin HCl [Flomax -] 0.4 mg PO DAILY@0830 cap.sr 06/06/17 Tiotropium [place] [Spiriva] 1 puff IH DAILY inh 06/06/17 Magnesium l-Lactate [Mag-Tab Sr] 84 mg PO DAILY 07/24/17 Family Disease History - Family Disease History Family Disease History: CA: Son (1 son from cancer, 1 son from alcohol abuse), Other: Father (old age), Mother (old age), Son Review of Systems - Review of Systems Constitutional: reports: No Symptoms Eyes: reports: No Symptoms HENT: reports: No Symptoms Neck: reports: No Symptoms Cardiovascular: reports: Shortness of Breath Respiratory: reports: SOB Gastrointestinal: reports: No Symptoms Genitourinary: reports: No Symptoms Musculoskeletal: reports: Joint Swelling, Other Integumentary: reports: Change in Color, Erythema (of rt great toe) Neurological: reports: No Symptoms Endocrine: reports: No Symptoms Hematology/Lymphatic: reports: No Symptoms Psychiatric: reports: No Symptoms Physical Exam Vital Signs: Vital Signs Temperature 98 F 07/26/17 08:53 Pulse Rate 88 07/26/17 08:53 Respiratory Rate 20 07/26/17 08:53 Blood Pressure 122/64 07/26/17 08:53 O2 Sat by Pulse Oximetry (%) 96 07/25/17 21:00 Constitutional: Yes: Calm, Thin Eyes: Yes: Conjunctiva Clear Neck: Yes: Supple Cardiovascular: Yes: Pulse Irregular, Murmur Respiratory: Yes: Regular, Poor Air Entry Gastrointestinal: Yes: Normal Bowel Sounds, Soft Musculoskeletal: Yes: Joint Swelling (rt great toe), Other Extremities: Yes: Erythema (rt great toe), Other Wound/Incision: Yes: Clean/Dry, Other (patient has dried) Neurological: Yes: Alert, Oriented Psychiatric: Yes: Alert Labs: CBC, BMP 07/26/17 05:00 07/26/17 05:00 Imaging - Results Chest X-ray: Report Reviewed, Image Reviewed X-ray: Report Reviewed, Image Reviewed Assessment/Plan patient with multiple medical problems and now admitted with sob and now with cellulitits of the rt great toe with pain and swelling xray report noted patient xray does not show any thing but with his history i am a bit worried if there might be underlying pathology cellulitis of rt foot/rt great toe afib sob htn copd hypothyroidism plan would suggest mri of the foot to see if we are missing someting will start him on invanz once swelling decreases and erythema and pain improves he can be switched to oral rest as per primary
--- NOTE | 2017-07-26 11:19 | PN ---
Progress Note (short form) - Note Progress Note: Subjective: The patient was seen and examined at the bedside, he reports throbbing in his right foot great toe Current Medications Generic Name Dose Route Start Last Admin Trade Name Stanley PRN Reason Stop Dose Admin Albuterol/Ipratropium 1 amp 07/25/17 01:41 Duoneb - NEB Q4H PRN SHORTNESS OF BREATH Aspirin 81 mg 07/26/17 06:15 07/26/17 06:21 Asa - PO 81 mg DAILY MICHAEL Administration Atorvastatin Calcium 10 mg 07/25/17 22:00 07/25/17 22:22 Lipitor - PO 10 mg HS MICHAEL Administration Docusate Sodium 200 mg 07/25/17 22:00 07/25/17 22:22 Colace - PO 200 mg HS MICHAEL Administration Duloxetine HCl 60 mg 07/25/17 22:00 07/25/17 22:22 Cymbalta - PO 60 mg HS MICHAEL Administration Fenofibric Acid 135 mg 07/25/17 10:00 07/26/17 09:08 Trilipix - PO 135 mg DAILY MICHAEL Administration Ferrous Sulfate 325 mg 07/25/17 10:00 07/26/17 09:10 Feosol - PO 325 mg DAILY MICHAEL Administration Fluticasone Propionate 2 spray 07/25/17 10:00 07/26/17 09:10 Flonase - NS 2 spray DAILY MICHAEL Administration Furosemide 40 mg 07/25/17 10:00 07/26/17 09:08 Lasix Injection - IVPUSH 40 mg DAILY MICHAEL Administration Gabapentin 600 mg 07/25/17 10:00 07/26/17 09:09 Neurontin - PO 600 mg BID MICHAEL Administration Heparin Sodium (Porcine) 5,000 unit 07/25/17 09:31 07/26/17 09:08 Heparin - SQ 5,000 unit BID MICHAEL Administration Levothyroxine Sodium 50 mcg 07/25/17 07:00 07/26/17 06:21 Synthroid - PO 50 mcg DAILY@0700 MICHAEL Administration Melatonin 3 mg 07/25/17 22:00 07/25/17 22:21 Melatonin PO 3 mg HS MICHAEL Administration Metoprolol Tartrate 25 mg 07/26/17 10:00 07/26/17 09:09 Lopressor - PO 25 mg BID MICHAEL Administration Potassium Chloride 20 meq 07/25/17 10:00 07/26/17 09:08 K-Dur - PO 20 meq DAILY MICHAEL Administration Ranitidine HCl 150 mg 07/25/17 10:00 07/26/17 09:11 Zantac - PO 150 mg BID MICHAEL Administration Senna 2 tab 07/25/17 10:00 07/26/17 09:08 Senna - PO 2 tab DAILY MICHAEL Administration Tamsulosin HCl 0.4 mg 07/25/17 08:30 07/26/17 08:44 Flomax - PO 0.4 mg DAILY@0830 MICHAEL Administration Tiotropium [place] 1 puff 07/25/17 10:00 07/26/17 09:10 Spiriva - IH 1 inh DAILY MICHAEL Administration Objective: Vital Signs Period Temp Pulse Resp BP Sys/Mitchell Pulse Ox Last 24 Hr 97.2 F-100.0 F 73-90 18-20 84-127/42-74 96 Physical Exam: General: NAD Lungs: CTA bilaterally Heart: RRR, S1S2 Abd: Soft, non-tender, non-distended. Normoactive bowel sounds Ext: Right foot great toe erythema and distal 2cm round wound, no drainage. Warm , well-perfused. 2+ DP/PT bilaterally CBCD WBC 13.3 K/mm3 (4.0-10.0) H D 07/26/17 05:00 RBC 2.89 M/mm3 (4.00-5.60) L 07/26/17 05:00 Hgb 9.4 GM/dL (11.7-16.9) L 07/26/17 05:00 Hct 28.7 % (35.4-49) L 07/26/17 05:00 MCV 99.3 fl (80-96) H 07/26/17 05:00 MCHC 32.5 g/dl (32.0-35.9) 07/26/17 05:00 RDW 18.5 % (11.9-15.9) H 07/26/17 05:00 Plt Count 178 K/MM3 (134-434) 07/26/17 05:00 MPV 8.7 fl (7.5-11.1) 07/26/17 05:00 CMP Sodium 136 mmol/L (136-145) 07/26/17 05:00 Potassium 3.4 mmol/L (3.5-5.1) L 07/26/17 05:00 Chloride 94 mmol/L (98-107) L 07/26/17 05:00 Carbon Dioxide 36 mmol/L (21-32) H 07/26/17 05:00 Anion Gap 6 (8-16) L 07/26/17 05:00 BUN 28 mg/dL (7-18) H 07/26/17 05:00 Creatinine 1.2 mg/dL (0.7-1.3) 07/26/17 05:00 Creat Clearance w eGFR 57.41 (>60) 07/26/17 05:00 Random Glucose 91 mg/dL (74-106) 07/26/17 05:00 Calcium 8.1 mg/dL (8.5-10.1) L 07/26/17 05:00 Total Bilirubin 0.9 mg/dL (0.2-1.0) 07/26/17 05:00 AST 14 U/L (15-37) L D 07/26/17 05:00 ALT 8 U/L (12-78) L D 07/26/17 05:00 Alkaline Phosphatase 37 U/L (45-117) L 07/26/17 05:00 Total Protein 5.1 g/dl (6.4-8.2) L 07/26/17 05:00 Albumin 2.5 g/dl (3.4-5.0) L 07/26/17 05:00 CARDIAC ENZYMES Creatine Kinase 8 IU/L (39-308) L 07/26/17 05:00 Troponin I 0.06 ng/ml (0.00-0.05) H 07/26/17 05:00 Microbiology 07/25/17 01:45 Urine - Urine Clean Catch Urine Culture - Final NO GROWTH OBTAINED Imaging: Chest X-ray: decreased congestive changes. No pleural effusions Assessment: This is an 86 year old male with PMHx of A.fib, CHF, HTN, hyperlipidemia, PVD, COPD, hypothyroidism, peripheral neuropathy, skin cancer, recent hospitalization for pneumonia who presented to the ED with worsening shortness of breath for 2 days. Plan: 1) Acute diastolic chf exacerbation - Chest x-ray as above - Continue Lasix 40mg IVP daily - Daily weights - Strict I&O - ECHO 05/2017: mild, global LV hypo; nl RV; mild MR; mild ao root dilation (no RVSP) - Appreciate cardiology consult 2) ID: Right great toe cellulitis? - Erythema and non-draining wound - X-ray reviewed - Discussed with ID who will evaluate for abx - F/u ID consult 3) A.fib - Rate controlled - Continue Lopressor - Anticoagulation discontinued during admission 05/2017 hematuria. Does not appear to be restarted as an outpatient. F/u cardiology for further recommendations, will def starting anticoagulation to cards 4) HTN - Continue Lopressor 5) Hyperlipidemia - Continue Lipitor - Continue Trilipix 6) COPD - No evidence of active exacerbation at this time - Continue Spiriva - Continue Duonebs 7) Hypothyroidism - Continue Synthroid 8) F/E/N: - Hypokalemia: replete - Hypomagnesemia: resolved - Dysphagia pureed diet - Monitor electrolytes 9) Prophylaxis: - Heparin 5,000u sq bid 10) Dispo: - Requires continued inpatient care CODE STATUS: FULL CODE Visit type - Emergency Visit Emergency Visit: Yes ED Registration Date: 07/25/17 Care time: The patient presented to the Emergency Department on the above date and was hospitalized for further evaluation of their emergent condition. - New Patient This patient is new to me today: No - Critical Care Critical Care patient: No
--- NOTE | 2017-07-26 11:59 | PN ---
Progress Note (short form) - Note Progress Note: s: no cp sob palps dizzy o: Vital Signs Period Temp Pulse Resp BP Sys/Mitchell Pulse Ox Last 24 Hr 97.2 F-100.0 F 73-90 18-20 84-127/42-74 96 nad no jvd irreg, s1s2 2/6 murmur at ctab, nl eff aaox3 no le e/c/c abd nt nd pos bs no jaundice diaphoresis Current Medications Generic Name Dose Route Start Last Admin Trade Name Freq PRN Reason Stop Dose Admin Albuterol/Ipratropium 1 amp 07/25/17 01:41 Duoneb - NEB Q4H PRN SHORTNESS OF BREATH Aspirin 81 mg 07/26/17 06:15 07/26/17 06:21 Asa - PO 81 mg DAILY MICHAEL Administration Atorvastatin Calcium 10 mg 07/25/17 22:00 07/25/17 22:22 Lipitor - PO 10 mg HS MICHAEL Administration Docusate Sodium 200 mg 07/25/17 22:00 07/25/17 22:22 Colace - PO 200 mg HS MICHAEL Administration Duloxetine HCl 60 mg 07/25/17 22:00 07/25/17 22:22 Cymbalta - PO 60 mg HS MICHAEL Administration Fenofibric Acid 135 mg 07/25/17 10:00 07/26/17 09:08 Trilipix - PO 135 mg DAILY MICHAEL Administration Ferrous Sulfate 325 mg 07/25/17 10:00 07/26/17 09:10 Feosol - PO 325 mg DAILY MICHAEL Administration Fluticasone Propionate 2 spray 07/25/17 10:00 07/26/17 09:10 Flonase - NS 2 spray DAILY MICHAEL Administration Furosemide 40 mg 07/25/17 10:00 07/26/17 09:08 Lasix Injection - IVPUSH 40 mg DAILY MICHAEL Administration Gabapentin 600 mg 07/25/17 10:00 07/26/17 09:09 Neurontin - PO 600 mg BID MICHAEL Administration Heparin Sodium (Porcine) 5,000 unit 07/25/17 09:31 07/26/17 09:08 Heparin - SQ 5,000 unit BID MICHAEL Administration Levothyroxine Sodium 50 mcg 07/25/17 07:00 07/26/17 06:21 Synthroid - PO 50 mcg DAILY@0700 MICHAEL Administration Melatonin 3 mg 07/25/17 22:00 07/25/17 22:21 Melatonin PO 3 mg HS MICHAEL Administration Metoprolol Tartrate 25 mg 07/26/17 10:00 07/26/17 09:09 Lopressor - PO 25 mg BID MICHAEL Administration Potassium Chloride 20 meq 07/25/17 10:00 07/26/17 09:08 K-Dur - PO 20 meq DAILY MICHAEL Administration Ranitidine HCl 150 mg 07/25/17 10:00 07/26/17 09:11 Zantac - PO 150 mg BID MICHAEL Administration Senna 2 tab 07/25/17 10:00 07/26/17 09:08 Senna - PO 2 tab DAILY MICHAEL Administration Tamsulosin HCl 0.4 mg 07/25/17 08:30 07/26/17 08:44 Flomax - PO 0.4 mg DAILY@0830 MICHAEL Administration Tiotropium [place] 1 puff 07/25/17 10:00 07/26/17 09:10 Spiriva - IH 1 inh DAILY MICHAEL Administration CBC, BMP 07/26/17 05:00 07/26/17 05:00 ecg : afib, with pvc's/aberrancy. lad, rbbb tele: rate controlled afib. cxr: minimal improvement in congestive changes. echo 05/2017: mild, global LV hypo; nl RV; mild MR; mild ao root dilation (no RVSP) mibi 10/2016: no ischemia a/p: sob/acute diastolic hf exacerbation: - s/p lasix 20 mg IV x 1 and then 40 mg IV x 1. Sx's improving. con't for now with close monitoring of bp. - evaluation for non-cardiac etiology in setting of recent pna and + bandemia, per pmd/ID afib: - AC had been held on last admit for hematuria and anemia/thrombocytopenia. - ASA for now. - rate controlled, cont low dose bb cad s/p remote pci: -stable -no signs acs -off AC as above. con't statin, bb. has been off acei due to low bp. adding asa htn: -stable, cont current meds. hld: -cont home statin,
[2017-07-26] MEDS ORDERED: POTASSIUM CHLORIDE TABS 20 MEQ TABLET.ER (FP) PO ONE (13:00)
[2017-07-26] MEDS: ERTAPENEM SODIUM 1 GM in SODIUM CHLORIDE 50 ML IVPB SCH (17:57)
[2017-07-26] MEDS: MELATONIN 1 MG TABLET PO SCH (22:10)
[2017-07-26] MEDS: DOCUSATE SODIUM 100 MG CAPSULE (FP) PO SCH (22:10)
[2017-07-26] MEDS: DULoxetine HCL 30 MG CAPSULE.DR (FP) PO SCH (22:11)
[2017-07-26] MEDS: ATORVASTATIN CA 10 MG TABLET (FP) PO SCH (22:11)
[2017-07-27] MEDS: LEVOTHYROXINE NA 50 MCG TABLET (FP) PO SCH (06:58)
--- NOTE | 2017-07-27 09:04 | PN ---
Progress Note, Physician Chief Complaint: sob History of Present Illness: sob fully resolved--feels back at baseline. no cp, palpit, leg swelling notes he is urinating a lot, more than baseline says he stood unassisted for daily wt today - Current Medication List Current Medications: Active Medications Albuterol/Ipratropium (Duoneb -) 1 amp NEB Q4H PRN PRN Reason: SHORTNESS OF BREATH Aspirin (Asa -) 81 mg PO DAILY [facility] Last Admin: 07/26/17 06:21 Dose: 81 mg Atorvastatin Calcium (Lipitor -) 10 mg PO HS [facility] Last Admin: 07/26/17 22:11 Dose: 10 mg Docusate Sodium (Colace -) 200 mg PO HS [facility] Last Admin: 07/26/17 22:10 Dose: 200 mg Duloxetine HCl (Cymbalta -) 60 mg PO HS [facility] Last Admin: 07/26/17 22:11 Dose: 60 mg Fenofibric Acid (Trilipix -) 135 mg PO DAILY [facility] Last Admin: 07/26/17 09:08 Dose: 135 mg Ferrous Sulfate (Feosol -) 325 mg PO DAILY [facility] Last Admin: 07/26/17 09:10 Dose: 325 mg Fluticasone Propionate (Flonase -) 2 spray NS DAILY [facility] Last Admin: 07/26/17 09:10 Dose: 2 spray Furosemide (Lasix Injection -) 40 mg IVPUSH DAILY [facility] Last Admin: 07/26/17 09:08 Dose: 40 mg Gabapentin (Neurontin -) 600 mg PO BID [facility] Last Admin: 07/26/17 22:10 Dose: 600 mg Heparin Sodium (Porcine) (Heparin -) 5,000 unit SQ BID [facility] Last Admin: 07/26/17 22:11 Dose: 5,000 unit Ertapenem 1 gm/ Sodium (Chloride) 50 mls @ 50 mls/hr IVPB DAILY [facility] PRN Reason: Protocol Last Admin: 07/26/17 17:57 Dose: 50 mls/hr Levothyroxine Sodium (Synthroid -) 50 mcg PO DAILY@0700 [facility] Last Admin: 07/27/17 06:58 Dose: 50 mcg Melatonin (Melatonin) 3 mg PO HS [facility] Last Admin: 07/26/17 22:10 Dose: 3 mg Metoprolol Tartrate (Lopressor -) 25 mg PO BID [facility] Last Admin: 07/26/17 22:14 Dose: Not Given Potassium Chloride (K-Dur -) 20 meq PO DAILY [facility] Last Admin: 07/26/17 09:08 Dose: 20 meq Ranitidine HCl (Zantac -) 150 mg PO BID [facility] Last Admin: 07/26/17 22:11 Dose: 150 mg Senna (Senna -) 2 tab PO DAILY [facility] Last Admin: 07/26/17 09:08 Dose: 2 tab Tamsulosin HCl (Flomax -) 0.4 mg PO DAILY@0830 [facility] Last Admin: 07/26/17 08:44 Dose: 0.4 mg Tiotropium [place] (Spiriva -) 1 puff IH DAILY [facility] Last Admin: 07/26/17 09:10 Dose: 1 inh - Objective Vital Signs: Vital Signs Temperature 97.5 F L 07/27/17 02:00 Pulse Rate 77 07/27/17 05:53 Respiratory Rate 20 07/27/17 05:53 Blood Pressure 108/64 07/27/17 05:53 O2 Sat by Pulse Oximetry (%) 96 07/26/17 09:00 Constitutional: Yes: No Distress, Calm Eyes: No: Sclera Icterus HENT: No: Nasal Congestion Cardiovascular: Yes: Pulse Irregular, JVD (to jaw), S1, S2, Other (PMI non diplaced). No: Gallop, Murmur Respiratory: Yes: CTA Bilaterally, Diminished (R base), Rales (L base). No: Accessory Muscle Use Gastrointestinal: Yes: Normal Bowel Sounds, Soft. No: Tenderness Musculoskeletal: Yes: Other (No kyphosis) Extremities: No: Cold Edema: No Integumentary: No: Jaundice Neurological: Yes: Alert, Oriented (x3) Psychiatric: No: Agitated Labs: CBC, BMP 07/26/17 05:00 07/26/17 05:00 - ....Imaging EKG: Other (tele: AF, good HRs) Assessment/Plan ecg : afib, with pvc's/aberrancy. lad, rbb--no change vs 05/19 cxr: minimal improvement in congestive changes, no effusions echo 05/2017: mild, global LV hypo; nl RV; mild MR; mild ao root dilation (no RVSP) mibi 10/2016: no ischemia a/p: sob/acute diastolic hf exacerbation: - BNP 19K (prior range 18K-27K), cxr with residual congestive changes - receiving lasix 40 iv qd - 07/27: lytes/renal fxn stable. wt trend up 8 lb in 2d, ? accurate. - no more sob but suspect marked JVD still on exam, and lung exam remains wet - incr lasix to 40 iv bid, reassess numbers in am - troponins flat, no isch ecg changes--doubt ACS afib: - AC had been held on last admit for hematuria and anemia/thrombocytopenia. - cont ASA for now, per prior plan - rate controlled, cont low dose bb cad s/p remote pci: -stable -no signs acs, as above. -cont ASA, statin, bb. has been off acei due to low bp tendencies htn: -stable, cont current meds. hld: -cont home statin,
[2017-07-27] MEDS: METOPROLOL TARTRATE 25 MG TABLET (FP) PO SCH ×2 (10:22→21:56)
[2017-07-27] MEDS: GABAPENTIN 300 MG CAPSULE (FP) PO SCH ×2 (10:22→22:01)
[2017-07-27] MEDS: ASPIRIN 81 MG CHEWABLE TABLETS PO SCH (10:22)
[2017-07-27] MEDS: SENNOSIDES 8.6MG TABLET (FP) PO SCH (10:22)
[2017-07-27] MEDS: FERROUS SO4 325 MG TABLET (FP) PO SCH (10:22)
[2017-07-27] MEDS: FUROSEMIDE 40 MG/4 ML INJECTABLE VIAL IVPUSH SCH (10:23)
[2017-07-27] MEDS: HEPARIN NA (PORCINE) 5,000 UNITS/ML 1ML VIAL SQ SCH ×2 (10:23→22:00)
[2017-07-27] MEDS: FENOFIBRIC ACID 135 MG CAP PO SCH (10:23)
[2017-07-27] MEDS: TAMSULOSIN HCL 0.4 MG CAP.ER.24H (FP) PO SCH (10:23)
[2017-07-27] MEDS: POTASSIUM CHLORIDE TABS 20 MEQ TABLET.ER (FP) PO SCH (10:23)
[2017-07-27] MEDS: ERTAPENEM SODIUM 1 GM in SODIUM CHLORIDE 50 ML IVPB SCH (10:23)
[2017-07-27] MEDS: FLUTICASONE PROP 0.05% 16 GM NASAL SPRAY NS SCH (10:23)
[2017-07-27] MEDS: RANITIDINE HCL 150 MG TABLET (FP) PO SCH ×2 (10:23→22:01)
--- NOTE | 2017-07-27 10:50 | PN ---
Progress Note, Physician History of Present Illness: Breathing feeling a little better today. Still feels a little weak. - Current Medication List Current Medications: Active Medications Albuterol/Ipratropium (Duoneb -) 1 amp NEB Q4H PRN PRN Reason: SHORTNESS OF BREATH Aspirin (Asa -) 81 mg PO DAILY [facility] Last Admin: 07/26/17 06:21 Dose: 81 mg Atorvastatin Calcium (Lipitor -) 10 mg PO HS [facility] Last Admin: 07/26/17 22:11 Dose: 10 mg Docusate Sodium (Colace -) 200 mg PO HS [facility] Last Admin: 07/26/17 22:10 Dose: 200 mg Duloxetine HCl (Cymbalta -) 60 mg PO HS [facility] Last Admin: 07/26/17 22:11 Dose: 60 mg Fenofibric Acid (Trilipix -) 135 mg PO DAILY [facility] Last Admin: 07/26/17 09:08 Dose: 135 mg Ferrous Sulfate (Feosol -) 325 mg PO DAILY [facility] Last Admin: 07/26/17 09:10 Dose: 325 mg Fluticasone Propionate (Flonase -) 2 spray NS DAILY [facility] Last Admin: 07/26/17 09:10 Dose: 2 spray Furosemide (Lasix Injection -) 40 mg IVPUSH DAILY [facility] Last Admin: 07/26/17 09:08 Dose: 40 mg Gabapentin (Neurontin -) 600 mg PO BID [facility] Last Admin: 07/26/17 22:10 Dose: 600 mg Heparin Sodium (Porcine) (Heparin -) 5,000 unit SQ BID [facility] Last Admin: 07/26/17 22:11 Dose: 5,000 unit Ertapenem 1 gm/ Sodium (Chloride) 50 mls @ 50 mls/hr IVPB DAILY [facility] PRN Reason: Protocol Last Admin: 07/26/17 17:57 Dose: 50 mls/hr Levothyroxine Sodium (Synthroid -) 50 mcg PO DAILY@0700 [facility] Last Admin: 07/27/17 06:58 Dose: 50 mcg Melatonin (Melatonin) 3 mg PO HS [facility] Last Admin: 07/26/17 22:10 Dose: 3 mg Metoprolol Tartrate (Lopressor -) 25 mg PO BID [facility] Last Admin: 07/26/17 22:14 Dose: Not Given Potassium Chloride (K-Dur -) 20 meq PO DAILY [facility] Last Admin: 07/26/17 09:08 Dose: 20 meq Ranitidine HCl (Zantac -) 150 mg PO BID [facility] Last Admin: 07/26/17 22:11 Dose: 150 mg Senna (Senna -) 2 tab PO DAILY [facility] Last Admin: 07/26/17 09:08 Dose: 2 tab Tamsulosin HCl (Flomax -) 0.4 mg PO DAILY@0830 [facility] Last Admin: 07/26/17 08:44 Dose: 0.4 mg Tiotropium [place] (Spiriva -) 1 puff IH DAILY [facility] Last Admin: 07/26/17 09:10 Dose: 1 inh - Objective Vital Signs: Vital Signs Temperature 98.3 F 07/27/17 09:00 Pulse Rate 80 07/27/17 09:00 Respiratory Rate 20 07/27/17 09:00 Blood Pressure 111/57 07/27/17 09:00 O2 Sat by Pulse Oximetry (%) 93 L 07/27/17 09:00 Constitutional: Yes: No Distress, Calm Neck: Yes: Supple, Trachea Midline Cardiovascular: Yes: Regular Rate and Rhythm, S1, S2. No: Murmur Respiratory: Yes: Regular, Rales (at bilateral bases) Gastrointestinal: Yes: Normal Bowel Sounds, Soft. No: Distention, Tenderness Edema: No Neurological: Yes: Alert, Oriented Labs: CBC, BMP 07/26/17 05:00 07/26/17 05:00 Assessment/Plan Current Active Problems Acute congestive heart failure (Acute) COPD CAD, s/p CABG Afib HTN HPL PVD, s/p L fem-pop bypass hypothyroid peripheral neuropathy -cont IV lasix -cont O2, neb treatments -may be candidate for home O2 upon discharge
--- NOTE | 2017-07-27 13:20 | PN ---
Progress Note, Physician History of Present Illness: Pt seen and examined. Events noted. Lab and radiology results noted. 86 y.o. 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 Was hospitalized with PNA and CHF previously and has recently been on levaquin. States he feels a "throbbing" pain in Rt 1st toe with erythema at site. Currently afebrile. - Current Medication List Current Medications: Active Medications Albuterol/Ipratropium (Duoneb -) 1 amp NEB Q4H PRN PRN Reason: SHORTNESS OF BREATH Aspirin (Asa -) 81 mg PO DAILY [facility] Last Admin: 07/27/17 10:22 Dose: 81 mg Atorvastatin Calcium (Lipitor -) 10 mg PO HS [facility] Last Admin: 07/26/17 22:11 Dose: 10 mg Docusate Sodium (Colace -) 200 mg PO HS [facility] Last Admin: 07/26/17 22:10 Dose: 200 mg Duloxetine HCl (Cymbalta -) 60 mg PO HS [facility] Last Admin: 07/26/17 22:11 Dose: 60 mg Fenofibric Acid (Trilipix -) 135 mg PO DAILY [facility] Last Admin: 07/27/17 10:23 Dose: 135 mg Ferrous Sulfate (Feosol -) 325 mg PO DAILY [facility] Last Admin: 07/27/17 10:22 Dose: 325 mg Fluticasone Propionate (Flonase -) 2 spray NS DAILY [facility] Last Admin: 07/27/17 10:23 Dose: 2 spray Furosemide (Lasix Injection -) 40 mg IVPUSH BID [facility] Gabapentin (Neurontin -) 600 mg PO BID [facility] Last Admin: 07/27/17 10:22 Dose: 600 mg Heparin Sodium (Porcine) (Heparin -) 5,000 unit SQ BID [facility] Last Admin: 07/27/17 10:23 Dose: 5,000 unit Ertapenem 1 gm/ Sodium (Chloride) 50 mls @ 50 mls/hr IVPB DAILY [facility] PRN Reason: Protocol Last Admin: 07/27/17 10:23 Dose: 50 mls/hr Levothyroxine Sodium (Synthroid -) 50 mcg PO DAILY@0700 [facility] Last Admin: 07/27/17 06:58 Dose: 50 mcg Melatonin (Melatonin) 3 mg PO HS [facility] Last Admin: 07/26/17 22:10 Dose: 3 mg Metoprolol Tartrate (Lopressor -) 25 mg PO BID [facility] Last Admin: 07/27/17 10:22 Dose: 25 mg Potassium Chloride (K-Dur -) 20 meq PO DAILY [facility] Last Admin: 07/27/17 10:23 Dose: 20 meq Ranitidine HCl (Zantac -) 150 mg PO BID [facility] Last Admin: 07/27/17 10:23 Dose: 150 mg Senna (Senna -) 2 tab PO DAILY [facility] Last Admin: 07/27/17 10:22 Dose: 2 tab Tamsulosin HCl (Flomax -) 0.4 mg PO DAILY@0830 [facility] Last Admin: 07/27/17 10:23 Dose: 0.4 mg Tiotropium [place] (Spiriva -) 1 puff IH DAILY [facility] Last Admin: 07/26/17 09:10 Dose: 1 inh - Objective Vital Signs: Vital Signs Temperature 98.3 F 07/27/17 09:00 Pulse Rate 66 07/27/17 12:07 Respiratory Rate 20 07/27/17 09:00 Blood Pressure 111/57 07/27/17 09:00 O2 Sat by Pulse Oximetry (%) 99 07/27/17 12:07 Constitutional: Yes: No Distress, Calm HENT: Yes: Atraumatic Neck: Yes: Supple Cardiovascular: Yes: Regular Rate and Rhythm Respiratory: Yes: Diminished Gastrointestinal: Yes: Normal Bowel Sounds, Soft Genitourinary: Yes: WNL Musculoskeletal: Yes: WNL Extremities: Yes: Other (Rt 1st toe with mild erythema, dry ulcerations, no tenderness with palpation, no warmth. DP pulse palpable) Neurological: Yes: Alert Psychiatric: Yes: Alert, Oriented Labs: CBC, BMP 07/26/17 05:00 07/26/17 05:00 - ....Imaging X-ray: Report Reviewed Problem List - Problems (1) Acute congestive heart failure Code(s): I50.9 - HEART FAILURE, UNSPECIFIED Qualifiers: Congestive heart failure type: systolic Qualified Code(s): I50.21 - Acute systolic (congestive) heart failure (2) CAD (coronary artery disease) Code(s): I25.10 - ATHSCL HEART DISEASE OF [place] CORONARY ARTERY W/O ANG PCTRS (3) CHF (congestive heart failure) Code(s): I50.9 - HEART FAILURE, UNSPECIFIED Qualifiers: Congestive heart failure type: unspecified congestive heart failure type Congestive heart failure chronicity: chronic Qualified Code(s): I50.9 - Heart failure, unspecified (4) Cellulitis Code(s): L03.90 - CELLULITIS, UNSPECIFIED (5) HTN (hypertension) Code(s): I10 - ESSENTIAL (PRIMARY) HYPERTENSION (6) Leukocytosis Code(s): D72.829 - ELEVATED WHITE BLOOD CELL COUNT, UNSPECIFIED Assessment/Plan Atrial fibrillation PVD CKD s/p 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
--- NOTE | 2017-07-27 13:58 | CON.PULM ---
Consult Consult Specialty:: PULM/CCM Referred by:: ZOYA Reason for Consultation:: SOB - History of Present Illness Chief Complaint: SOB History of Present Illness: 86 M, known to me from previous admissions with listed medical history of AFib, CHF, HTN, HLD, PVD, and skin cancer. Recent admission for decompensated CHF and PNA. Noted progressive increase in SOB. Some dry cough. No hemoptysis or fever or chills. Noted some redness in his toe. 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 Cardio/Vascular: Yes: AFIB, CAD, CHF, HTN, Hyperlipdemia Pulmonary: Yes: Pneumonia Gastrointestinal: Yes: Diverticulosis, GI Bleed, Hemorrhoids, Hiatal Hernia Renal/: Yes: Renal Inusuff Infectious Disease: Yes: Other (previous sepsis) Musculoskeletal: Yes: Osteoarthritis, Other (right foot drop) ENT: Yes: Other (dysphagia, hoarseness, ) Dermatology: Yes: Basal Cell (face), Other (Left roman catholic with local extension and hematoma) - Past Surgical History Past Surgical History: Yes: Bypass (left fem-pop), CABG (x3 2004), Cholecystectomy, Joint Replacement (bilateral knees), Orchiectomy (unilateral for testicular injury at 18yrs of age) - Alcohol/Substance Use Hx Alcohol Use: No History of Substance Use: reports: None - Smoking History Smoking history: Former smoker Have you smoked in the past 12 months: No Aproximately how many cigarettes per day: 0 If you are a former smoker, when did you quit?: 1983 - Social History Usual Living Arrangement: With Spouse ADL: Support Services (In [place] post) 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) History of Recent Travel: No Home Medications - Allergies Allergies/Adverse Reactions: Allergies Allergy/AdvReac Type Severity Reaction Status Date / Time Penicillins Allergy Intermediate Rash Verified 07/24/17 20:20 - Home Medications Home Medications: Ambulatory Orders Atorvastatin Ca [Lipitor] 10 mg PO HS 12/12/15 Docusate Sodium [Colace -] 200 mg PO HS 12/12/15 Duloxetine HCl [Cymbalta] 60 mg PO HS 12/12/15 Fenofibrate Nanocrystallized [Tricor] 145 mg PO DAILY 12/12/15 Ferrous Sulfate [Slow Release Iron] 45 mg PO DAILY 12/12/15 Fluticasone Prop 0.05% Nasal [Flonase -] 2 spray NS DAILY 12/12/15 Levomefolate/B6/B12/Algal Oil [Metanx Capsule] 1 each PO BID 12/12/15 Levothyroxine [Synthroid -] 50 mcg PO DAILY 12/12/15 Potassium Chloride 20 meq PO DAILY 12/12/15 Sennosides [Senna Concentrate] 17.2 mg PO DAILY 12/12/15 Gabapentin 600 mg PO BID 05/08/17 Melatonin 3 mg PO DAILY 05/08/17 Acetaminophen [Tylenol .Regular Strength -] 650 mg PO Q6H PRN #0 tablet Albuterol 2.5/Ipratropium 0.5 [Duoneb -] 1 amp NEB Q4H PRN #0 amp 06/06/17 Furosemide [Lasix -] 40 mg PO DAILY tablet 06/06/17 Metoprolol Tartrate [Lopressor -] 25 mg PO BID tablet 06/06/17 Ranitidine [Zantac -] 150 mg PO BID tablet 06/06/17 Tamsulosin HCl [Flomax -] 0.4 mg PO DAILY@0830 cap.sr 06/06/17 Tiotropium [place] [Spiriva] 1 puff IH DAILY inh 06/06/17 Magnesium l-Lactate [Mag-Tab Sr] 84 mg PO DAILY 07/24/17 Family Disease History - Family Disease History Family Disease History: CA: Son (1 son from cancer, 1 son from alcohol abuse), Other: Father (old age), Mother (old age), Son Review of Systems - Review of Systems Constitutional: denies: Chills, Fever, Night Sweats, Unintentional Wgt. Loss Eyes: reports: No Symptoms HENT: reports: No Symptoms Neck: reports: No Symptoms Cardiovascular: reports: Edema, Shortness of Breath. denies: Chest Pain, Palpitations Respiratory: reports: Cough, SOB, SOB on Exertion. denies: Hemoptysis, Wheezing Gastrointestinal: reports: No Symptoms Genitourinary: reports: No Symptoms Musculoskeletal: reports: Joint Swelling Integumentary: reports: No Symptoms Neurological: reports: No Symptoms Endocrine: reports: No Symptoms Hematology/Lymphatic: reports: No Symptoms Psychiatric: reports: No Symptoms Physical Exam Vital Sings: Vital Signs Temperature 98.3 F 07/27/17 09:00 Pulse Rate 66 07/27/17 12:07 Respiratory Rate 20 07/27/17 09:00 Blood Pressure 111/57 07/27/17 09:00 O2 Sat by Pulse Oximetry (%) 99 07/27/17 12:07 Constitutional: Yes: No Distress Eyes: Yes: Conjunctiva Clear, EOM Intact HENT: Yes: Atraumatic, Normocephalic Neck: Yes: Supple, Trachea Midline Cardiovascular: Yes: Regular Rate and Rhythm Respiratory: Yes: Rhonchi. No: Accessory Muscle Use, Stridor, Tachypnea, Wheezes ...Inspection: Yes: WNL ...Clubbing: No Gastrointestinal: Yes: Normal Bowel Sounds, Soft Renal/: Yes: WNL Musculoskeletal: Yes: WNL Extremities: Yes: WNL Edema: No Peripheral Pulses WNL: Yes Integumentary: Yes: WNL Neurological: Yes: WNL, Alert, Oriented ...Motor Strength: WNL Psychiatric: Yes: WNL, Alert, Oriented Labs: CBC, BMP 07/26/17 05:00 07/26/17 05:00 Imaging - Results Chest X-ray: Report Reviewed, Image Reviewed Problem List - Problems (1) Acute congestive heart failure Code(s): I50.9 - HEART FAILURE, UNSPECIFIED Qualifiers: Congestive heart failure type: systolic Qualified Code(s): I50.21 - Acute systolic (congestive) heart failure (2) Atrial fibrillation Code(s): I48.91 - UNSPECIFIED ATRIAL FIBRILLATION Qualifiers: Atrial fibrillation type: chronic Qualified Code(s): I48.2 - Chronic atrial fibrillation (3) CAD (coronary artery disease) Code(s): I25.10 - ATHSCL HEART DISEASE OF [place] CORONARY ARTERY W/O ANG PCTRS (4) CHF (congestive heart failure) Code(s): I50.9 - HEART FAILURE, UNSPECIFIED Qualifiers: Congestive heart failure type: unspecified congestive heart failure type Congestive heart failure chronicity: chronic Qualified Code(s): I50.9 - Heart failure, unspecified (5) Cellulitis Code(s): L03.90 - CELLULITIS, UNSPECIFIED (6) Coronary atherosclerosis Code(s): I25.10 - ATHSCL HEART DISEASE OF [place] CORONARY ARTERY W/O ANG PCTRS (7) GERD (gastroesophageal reflux disease) Code(s): K21.9 - GASTRO-ESOPHAGEAL REFLUX DISEASE WITHOUT ESOPHAGITIS (8) HTN (hypertension) Code(s): I10 - ESSENTIAL (PRIMARY) HYPERTENSION (9) Hyperlipemia Code(s): E78.5 - HYPERLIPIDEMIA, UNSPECIFIED (10) Hypothyroidism Code(s): E03.9 - HYPOTHYROIDISM, UNSPECIFIED (11) Infected abrasion of right foot or toe Code(s): PQK1289 - (12) 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
[2017-07-27] MEDS: DOCUSATE SODIUM 100 MG CAPSULE (FP) PO SCH (22:00)
[2017-07-27] MEDS: DULoxetine HCL 30 MG CAPSULE.DR (FP) PO SCH (22:00)
[2017-07-27] MEDS ORDERED: FUROSEMIDE 40 MG/4 ML INJECTABLE VIAL IVPUSH SCH (22:00)
[2017-07-27] MEDS: ATORVASTATIN CA 10 MG TABLET (FP) PO SCH (22:01)
[2017-07-27] MEDS: MELATONIN 1 MG TABLET PO SCH (23:10)
[2017-07-28] MEDS ORDERED: FUROSEMIDE 40 MG/4 ML INJECTABLE VIAL IVPUSH SCH ×2 (06:00→11:06)
[2017-07-28] MEDS: LEVOTHYROXINE NA 50 MCG TABLET (FP) PO SCH (06:50)
[2017-07-28 07:20] LABS: BASOPHIL 0.7 % (0-2.0); EOSINOPHIL 8.1 % (0-4.5); MCH 32.8 pg (25.7-33.7); MCHC 33.2 g/dl (32.0-35.9); MEAN CELL VOLUME 98.7 fl (80-96); MEAN PLT VOLUME 8.4 fl (7.5-11.1); PLATELET COUNT 168 K/MM3 (134-434); RDW 17.8 % (11.9-15.9); WHITE BLOOD COUNT 8.7 K/mm3 (4.0-10.0)
[2017-07-28 07:47] LABS: ALBUMIN 2.5 g/dl (3.4-5.0); ANION GAP 4 (8-16); CALCIUM 7.7 mg/dL (8.5-10.1); CO2 37 mmol/L (21-32); GLUCOSE,RANDOM 77 mg/dL (74-106)
[2017-07-28 07:50] LABS: ALK PHOS 39 U/L (45-117); CREATININE 0.9 mg/dL (0.7-1.3); SGOT/AST 16 U/L (15-37); SGPT/ALT 8 U/L (12-78); TOT PROT 5.2 g/dl (6.4-8.2)
[2017-07-28] MEDS ORDERED: PT OWN MED DRAWER 7, Y5N ONE (10:35)
[2017-07-28] MEDS: FENOFIBRIC ACID 135 MG CAP PO SCH (10:39)
[2017-07-28] MEDS: ASPIRIN 81 MG CHEWABLE TABLETS PO SCH (10:39)
[2017-07-28] MEDS: RANITIDINE HCL 150 MG TABLET (FP) PO SCH ×2 (10:39→21:54)
[2017-07-28] MEDS: GABAPENTIN 300 MG CAPSULE (FP) PO SCH ×2 (10:40→21:53)
[2017-07-28] MEDS: POTASSIUM CHLORIDE TABS 20 MEQ TABLET.ER (FP) PO SCH (10:40)
[2017-07-28] MEDS: TAMSULOSIN HCL 0.4 MG CAP.ER.24H (FP) PO SCH (10:40)
[2017-07-28] MEDS: METOPROLOL TARTRATE 25 MG TABLET (FP) PO SCH ×2 (10:40→21:53)
[2017-07-28] MEDS: HEPARIN NA (PORCINE) 5,000 UNITS/ML 1ML VIAL SQ SCH ×2 (10:40→21:52)
[2017-07-28] MEDS: SENNOSIDES 8.6MG TABLET (FP) PO SCH (10:40)
[2017-07-28] MEDS: FERROUS SO4 325 MG TABLET (FP) PO SCH (10:40)
[2017-07-28] MEDS: FLUTICASONE PROP 0.05% 16 GM NASAL SPRAY NS SCH (10:41)
[2017-07-28] MEDS: ERTAPENEM SODIUM 1 GM in SODIUM CHLORIDE 50 ML IVPB SCH (10:41)
--- NOTE | 2017-07-28 11:09 | PN ---
Progress Note, Physician Chief Complaint: chf History of Present Illness: no sob (oob to stretcher) no cp, palpitations, leg swelling feels like he's urinating a lot, collecting it all in bedside urinal he says - Current Medication List Current Medications: Active Medications Albuterol Sulfate (Ventolin 0.083% Nebulizer Soln -) 1 amp NEB Q4H PRN PRN Reason: SHORT OF BREATH/WHEEZING Aspirin (Asa -) 81 mg PO DAILY [facility] Last Admin: 07/28/17 10:39 Dose: 81 mg Atorvastatin Calcium (Lipitor -) 10 mg PO HS [facility] Last Admin: 07/27/17 22:01 Dose: 10 mg Docusate Sodium (Colace -) 200 mg PO HS [facility] Last Admin: 07/27/17 22:00 Dose: 200 mg Duloxetine HCl (Cymbalta -) 60 mg PO HS [facility] Last Admin: 07/27/17 22:00 Dose: 60 mg Fenofibric Acid (Trilipix -) 135 mg PO DAILY [facility] Last Admin: 07/28/17 10:39 Dose: 135 mg Ferrous Sulfate (Feosol -) 325 mg PO DAILY [facility] Last Admin: 07/28/17 10:40 Dose: 325 mg Fluticasone Propionate (Flonase -) 2 spray NS DAILY [facility] Last Admin: 07/28/17 10:41 Dose: 2 spray Furosemide (Lasix Injection -) 40 mg IVPUSH BIDLASIX [facility] Last Admin: 07/28/17 06:51 Dose: 40 mg Gabapentin (Neurontin -) 600 mg PO BID [facility] Last Admin: 07/28/17 10:40 Dose: 600 mg Heparin Sodium (Porcine) (Heparin -) 5,000 unit SQ BID [facility] Last Admin: 07/28/17 10:40 Dose: 5,000 unit Ertapenem 1 gm/ Sodium (Chloride) 50 mls @ 50 mls/hr IVPB DAILY [facility] PRN Reason: Protocol Last Admin: 07/28/17 10:41 Dose: 50 mls/hr Levothyroxine Sodium (Synthroid -) 50 mcg PO DAILY@0700 [facility] Last Admin: 07/28/17 06:50 Dose: 50 mcg Melatonin (Melatonin) 3 mg PO HS [facility] Last Admin: 07/27/17 23:10 Dose: Not Given Metoprolol Tartrate (Lopressor -) 25 mg PO BID [facility] Last Admin: 07/28/17 10:40 Dose: 25 mg Potassium Chloride (K-Dur -) 20 meq PO DAILY [facility] Last Admin: 07/28/17 10:40 Dose: 20 meq Ranitidine HCl (Zantac -) 150 mg PO BID [facility] Last Admin: 07/28/17 10:39 Dose: 150 mg Senna (Senna -) 2 tab PO DAILY [facility] Last Admin: 07/28/17 10:40 Dose: 2 tab Tamsulosin HCl (Flomax -) 0.4 mg PO DAILY@0830 [facility] Last Admin: 07/28/17 10:40 Dose: 0.4 mg Tiotropium [place] (Spiriva -) 1 puff IH DAILY [facility] Last Admin: 07/26/17 09:10 Dose: 1 inh - Objective Vital Signs: Vital Signs Temperature 98.6 F 07/28/17 05:11 Pulse Rate 86 07/28/17 05:11 Respiratory Rate 20 07/28/17 05:11 Blood Pressure 109/73 07/28/17 05:11 O2 Sat by Pulse Oximetry (%) 99 07/27/17 21:00 Constitutional: Yes: Well Nourished, No Distress, Calm Cardiovascular: Yes: Pulse Irregular, JVD, S1, S2. No: Gallop, Murmur Respiratory: Yes: Regular, Diminished (bases), Rales (bases). No: Accessory Muscle Use Extremities: No: Cold Edema: No Neurological: Yes: Alert, Oriented Psychiatric: No: Agitated Labs: CBC, BMP 07/28/17 05:42 07/28/17 05:42 - ....Imaging EKG: Other (tele: AF, good HR control) Assessment/Plan ecg : afib, with pvc's/aberrancy. lad, rbb--no change vs 05/19 cxr: minimal improvement in congestive changes, no effusions echo 05/2017: mild, global LV hypo; nl RV; mild MR; mild ao root dilation (no RVSP) mibi 10/2016: no ischemia a/p: sob/acute diastolic hf exacerbation: - BNP 19K (prior range 18K-27K), cxr with residual congestive changes - receiving lasix 40 iv qd - 07/27: lytes/renal fxn stable. wt trend up 8 lb in 2d, ? accurate. - no more sob but suspect marked JVD still on exam, and lung exam remains wet - incr lasix to 40 iv bid, reassess numbers in am - 07/28: wt up further, JVD persists. only 1000 cc UOP yest (says he's collecting it in urinal--accurate?). bun and creat improved today. - on review of OCT, no pm dose lasix given yest (i was not consulted)--so still received 40 iv qd. will change to lasix 80 iv qd. - rpt cxr in am - troponins flat, no isch ecg changes--doubt ACS afib: - AC had been held on last admit for hematuria and anemia/thrombocytopenia. - cont ASA for now, per prior plan - rate controlled, cont low dose bb cad s/p remote pci: -stable -no signs acs, as above. -cont ASA, statin, bb. has been off acei due to low bp tendencies htn: -stable, cont current meds. hld: -cont home statin, NO INDICATION FOR ONGOING CARDIAC MONITORING--D/C TELE
--- NOTE | 2017-07-28 11:32 | PN ---
Progress Note, Physician History of Present Illness: Breathing feeling OK. Now on bid lasix - Current Medication List Current Medications: Active Medications Albuterol Sulfate (Ventolin 0.083% Nebulizer Soln -) 1 amp NEB Q4H PRN PRN Reason: SHORT OF BREATH/WHEEZING Aspirin (Asa -) 81 mg PO DAILY [facility] Last Admin: 07/28/17 10:39 Dose: 81 mg Atorvastatin [place]cium (Lipitor -) 10 mg PO HS [facility] Last Admin: 07/27/17 22:01 Dose: 10 mg Docusate Sodium (Colace -) 200 mg PO HS [facility] Last Admin: 07/27/17 22:00 Dose: 200 mg Duloxetine HCl (Cymbalta -) 60 mg PO HS [facility] Last Admin: 07/27/17 22:00 Dose: 60 mg Fenofibric Acid (Trilipix -) 135 mg PO DAILY [facility] Last Admin: 07/28/17 10:39 Dose: 135 mg Ferrous Sulfate (Feosol -) 325 mg PO DAILY [facility] Last Admin: 07/28/17 10:40 Dose: 325 mg Fluticasone Propionate (Flonase -) 2 spray NS DAILY [facility] Last Admin: 07/28/17 10:41 Dose: 2 spray Furosemide (Lasix Injection -) 80 mg IVPUSH DAILY [facility] Gabapentin (Neurontin -) 600 mg PO BID [facility] Last Admin: 07/28/17 10:40 Dose: 600 mg Heparin Sodium (Porcine) (Heparin -) 5,000 unit SQ BID [facility] Last Admin: 07/28/17 10:40 Dose: 5,000 unit Ertapenem 1 gm/ Sodium (Chloride) 50 mls @ 50 mls/hr IVPB DAILY [facility] PRN Reason: Protocol Last Admin: 07/28/17 10:41 Dose: 50 mls/hr Levothyroxine Sodium (Synthroid -) 50 mcg PO DAILY@0700 [facility] Last Admin: 07/28/17 06:50 Dose: 50 mcg Melatonin (Melatonin) 3 mg PO HS [facility] Last Admin: 07/27/17 23:10 Dose: Not Given Metoprolol Tartrate (Lopressor -) 25 mg PO BID [facility] Last Admin: 07/28/17 10:40 Dose: 25 mg Potassium Chloride (K-Dur -) 20 meq PO DAILY [facility] Last Admin: 07/28/17 10:40 Dose: 20 meq Ranitidine HCl (Zantac -) 150 mg PO BID [facility] Last Admin: 07/28/17 10:39 Dose: 150 mg Senna (Senna -) 2 tab PO DAILY [facility] Last Admin: 07/28/17 10:40 Dose: 2 tab Tamsulosin HCl (Flomax -) 0.4 mg PO DAILY@0830 [facility] Last Admin: 07/28/17 10:40 Dose: 0.4 mg Tiotropium [place] (Spiriva -) 1 puff IH DAILY [facility] Last Admin: 07/26/17 09:10 Dose: 1 inh - Objective Vital Signs: Vital Signs Temperature 98.6 F 07/28/17 05:11 Pulse Rate 86 07/28/17 05:11 Respiratory Rate 20 07/28/17 05:11 Blood Pressure 109/73 07/28/17 05:11 O2 Sat by Pulse Oximetry (%) 99 07/27/17 21:00 Constitutional: Yes: No Distress, Calm Neck: Yes: Supple, Trachea Midline Cardiovascular: Yes: Regular Rate and Rhythm, S1, S2. No: Murmur Respiratory: Yes: Regular, Rales (bilateral bases). No: Rhonchi, Wheezes Gastrointestinal: Yes: Normal Bowel Sounds, Soft. No: Distention, Tenderness Edema: No Labs: CBC, BMP 07/28/17 05:42 07/28/17 05:42 Assessment/Plan Current Active Problems Acute congestive heart failure (Acute) COPD CAD, s/p CABG Afib HTN HPL PVD, s/p L fem-pop bypass hypothyroid peripheral neuropathy -cont IV lasix, now bid -cont O2, neb treatments -MRI foot to see if chronic bony infection of foot may be contributing to clinical decline
[2017-07-28] MEDS: FUROSEMIDE 40 MG/4 ML INJECTABLE VIAL IVPUSH SCH (12:23)
--- NOTE | 2017-07-28 13:04 | PN ---
Progress Note (short form) - Note Progress Note: Breathing feels better today. No hemoptysis or fever or chills overnight. Intake & Output 07/25/17 07/26/17 07/27/17 07/28/17 23:59 23:59 23:59 23:59 Intake Total 810 320 300 100 Output Total 800 1050 1000 Balance 10 -730 -700 100 Weight 140 lb 4 oz 140 lb 6.4 oz 148 lb 6 oz 150 lb 2 oz Last Vital Signs Temp Pulse Resp BP Pulse Ox 98.6 F 86 20 109/73 99 07/28/17 05:11 07/28/17 05:11 07/28/17 09:00 07/28/17 05:11 07/27/17 21:00 Active Medications Albuterol Sulfate (Ventolin 0.083% Nebulizer Soln -) 1 amp NEB Q4H PRN PRN Reason: SHORT OF BREATH/WHEEZING Aspirin (Asa -) 81 mg PO DAILY [facility] Last Admin: 07/28/17 10:39 Dose: 81 mg Atorvastatin Calcium (Lipitor -) 10 mg PO HS [facility] Last Admin: 07/27/17 22:01 Dose: 10 mg Docusate Sodium (Colace -) 200 mg PO HS [facility] Last Admin: 07/27/17 22:00 Dose: 200 mg Duloxetine HCl (Cymbalta -) 60 mg PO HS [facility] Last Admin: 07/27/17 22:00 Dose: 60 mg Fenofibric Acid (Trilipix -) 135 mg PO DAILY [facility] Last Admin: 07/28/17 10:39 Dose: 135 mg Ferrous Sulfate (Feosol -) 325 mg PO DAILY [facility] Last Admin: 07/28/17 10:40 Dose: 325 mg Fluticasone Propionate (Flonase -) 2 spray NS DAILY [facility] Last Admin: 07/28/17 10:41 Dose: 2 spray Furosemide (Lasix Injection -) 80 mg IVPUSH DAILY [facility] Last Admin: 07/28/17 12:23 Dose: 80 mg Gabapentin (Neurontin -) 600 mg PO BID [facility] Last Admin: 07/28/17 10:40 Dose: 600 mg Heparin Sodium (Porcine) (Heparin -) 5,000 unit SQ BID [facility] Last Admin: 07/28/17 10:40 Dose: 5,000 unit Ertapenem 1 gm/ Sodium (Chloride) 50 mls @ 50 mls/hr IVPB DAILY [facility] PRN Reason: Protocol Last Admin: 07/28/17 10:41 Dose: 50 mls/hr Levothyroxine Sodium (Synthroid -) 50 mcg PO DAILY@0700 [facility] Last Admin: 07/28/17 06:50 Dose: 50 mcg Melatonin (Melatonin) 3 mg PO HS [facility] Last Admin: 07/27/17 23:10 Dose: Not Given Metoprolol Tartrate (Lopressor -) 25 mg PO BID [facility] Last Admin: 07/28/17 10:40 Dose: 25 mg Potassium Chloride (K-Dur -) 20 meq PO DAILY [facility] Last Admin: 07/28/17 10:40 Dose: 20 meq Ranitidine HCl (Zantac -) 150 mg PO BID [facility] Last Admin: 07/28/17 10:39 Dose: 150 mg Senna (Senna -) 2 tab PO DAILY [facility] Last Admin: 07/28/17 10:40 Dose: 2 tab Tamsulosin HCl (Flomax -) 0.4 mg PO DAILY@0830 [facility] Last Admin: 07/28/17 10:40 Dose: 0.4 mg Tiotropium [place] (Spiriva -) 1 puff IH DAILY [facility] Last Admin: 07/26/17 09:10 Dose: 1 inh Constitutional: Yes: No Distress Eyes: Yes: Conjunctiva Clear, EOM Intact HENT: Yes: Atraumatic, Normocephalic Neck: Yes: Supple, Trachea Midline Cardiovascular: Yes: Regular Rate and Rhythm Respiratory: Yes: Rhonchi. No: Accessory Muscle Use, Stridor, Tachypnea, Wheezes ...Inspection: Yes: WNL ...Clubbing: No Gastrointestinal: Yes: Normal Bowel Sounds, Soft Renal/: Yes: WNL Musculoskeletal: Yes: WNL Extremities: Yes: WNL Edema: No Peripheral Pulses WNL: Yes Integumentary: Yes: WNL Neurological: Yes: WNL, Alert, Oriented ...Motor Strength: WNL Psychiatric: Yes: WNL, Alert, Oriented Labs: Laboratory Results - last 24 hr 07/28/17 07/28/17 05:42 05:42 WBC 8.7 D RBC 2.73 L Hgb 8.9 L Hct 26.9 L MCV 98.7 H MCH 32.8 MCHC 33.2 RDW 17.8 H Plt Count 168 MPV 8.4 Neutrophils % 74.0 Lymphocytes % 4.1 L D Monocytes % 13.1 H D Eosinophils % 8.1 H D Basophils % 0.7 Sodium 135 L Potassium 4.1 D Chloride 94 L Carbon Dioxide 37 H Anion Gap 4 L BUN 21 H D Creatinine 0.9 D Creat Clearance w eGFR > 60 Random Glucose 77 Calcium 7.7 L Total Bilirubin 1.0 AST 16 ALT 8 L Alkaline Phosphatase 39 L Total Protein 5.2 L Albumin 2.5 L Problem List - Problems (1) Acute congestive heart failure Code(s): I50.9 - HEART FAILURE, UNSPECIFIED Qualifiers: Congestive heart failure type: systolic Qualified Code(s): I50.21 - Acute systolic (congestive) heart failure (2) Atrial fibrillation Code(s): I48.91 - UNSPECIFIED ATRIAL FIBRILLATION Qualifiers: Atrial fibrillation type: chronic Qualified Code(s): I48.2 - Chronic atrial fibrillation (3) CAD (coronary artery disease) Code(s): I25.10 - ATHSCL HEART DISEASE OF [place] CORONARY ARTERY W/O ANG PCTRS (4) CHF (congestive heart failure) Code(s): I50.9 - HEART FAILURE, UNSPECIFIED Qualifiers: Congestive heart failure type: unspecified congestive heart failure type Congestive heart failure chronicity: chronic Qualified Code(s): I50.9 - Heart failure, unspecified (5) Cellulitis Code(s): L03.90 - CELLULITIS, UNSPECIFIED (6) Coronary atherosclerosis Code(s): I25.10 - ATHSCL HEART DISEASE OF [place] CORONARY ARTERY W/O ANG PCTRS (7) GERD (gastroesophageal reflux disease) Code(s): K21.9 - GASTRO-ESOPHAGEAL REFLUX DISEASE WITHOUT ESOPHAGITIS (8) HTN (hypertension) Code(s): I10 - ESSENTIAL (PRIMARY) HYPERTENSION (9) Hyperlipemia Code(s): E78.5 - HYPERLIPIDEMIA, UNSPECIFIED (10) Hypothyroidism Code(s): E03.9 - HYPOTHYROIDISM, UNSPECIFIED (11) Infected abrasion of right foot or toe Code(s): DAM7120 - (12) Malignant neoplasm of skin of [place] Code(s): C44.309 - UNSP MALIGNANT NEOPLASM OF SKIN OF OTHER PARTS OF FACE (13) PVD (peripheral vascular disease) Code(s): I73.9 - PERIPHERAL VASCULAR DISEASE, UNSPECIFIED Assessment/Plan BD TX ABX per ID (do not suspect recurrent PNA) O2 Follow cultures Molly Boo Problem List - Problems (1) Acute congestive heart failure Code(s): I50.9 - HEART FAILURE, UNSPECIFIED Qualifiers: Congestive heart failure type: systolic Qualified Code(s): I50.21 - Acute systolic (congestive) heart failure (2) Atrial fibrillation Code(s): I48.91 - UNSPECIFIED ATRIAL FIBRILLATION Qualifiers: Atrial fibrillation type: chronic Qualified Code(s): I48.2 - Chronic atrial fibrillation (3) CAD (coronary artery disease) Code(s): I25.10 - ATHSCL HEART DISEASE OF [place] CORONARY ARTERY W/O ANG PCTRS (4) CHF (congestive heart failure) Code(s): I50.9 - HEART FAILURE, UNSPECIFIED Qualifiers: Congestive heart failure type: unspecified congestive heart failure type Congestive heart failure chronicity: chronic Qualified Code(s): I50.9 - Heart failure, unspecified (5) Cellulitis Code(s): L03.90 - CELLULITIS, UNSPECIFIED (6) Coronary atherosclerosis Code(s): I25.10 - ATHSCL HEART DISEASE OF [place] CORONARY ARTERY W/O ANG PCTRS (7) GERD (gastroesophageal reflux disease) Code(s): K21.9 - GASTRO-ESOPHAGEAL REFLUX DISEASE WITHOUT ESOPHAGITIS (8) HTN (hypertension) Code(s): I10 - ESSENTIAL (PRIMARY) HYPERTENSION (9) Hyperlipemia Code(s): E78.5 - HYPERLIPIDEMIA, UNSPECIFIED (10) Hypothyroidism Code(s): E03.9 - HYPOTHYROIDISM, UNSPECIFIED (11) Infected abrasion of right foot or toe Code(s): [id number] - (12) Malignant neoplasm of skin of [place] Code(s): C44.309 - UNSP MALIGNANT NEOPLASM OF SKIN OF OTHER PARTS OF FACE (13) PVD (peripheral vascular disease) Code(s): I73.9 - PERIPHERAL VASCULAR DISEASE, UNSPECIFIED
--- NOTE | 2017-07-28 15:03 | PN ---
Progress Note, Physician History of Present Illness: Pt seen and examined. Notes reviewed. MRI done of Rt foot. Remains relatively stable, without acute distress. No specific complaints. - Current Medication List Current Medications: Active Medications Albuterol Sulfate (Ventolin 0.083% Nebulizer Soln -) 1 amp NEB Q4H PRN PRN Reason: SHORT OF BREATH/WHEEZING Aspirin (Asa -) 81 mg PO DAILY [facility] Last Admin: 07/28/17 10:39 Dose: 81 mg Atorvastatin Calcium (Lipitor -) 10 mg PO HS [facility] Last Admin: 07/27/17 22:01 Dose: 10 mg Docusate Sodium (Colace -) 200 mg PO HS [facility] Last Admin: 07/27/17 22:00 Dose: 200 mg Duloxetine HCl (Cymbalta -) 60 mg PO HS [facility] Last Admin: 07/27/17 22:00 Dose: 60 mg Fenofibric Acid (Trilipix -) 135 mg PO DAILY [facility] Last Admin: 07/28/17 10:39 Dose: 135 mg Ferrous Sulfate (Feosol -) 325 mg PO DAILY [facility] Last Admin: 07/28/17 10:40 Dose: 325 mg Fluticasone Propionate (Flonase -) 2 spray NS DAILY [facility] Last Admin: 07/28/17 10:41 Dose: 2 spray Furosemide (Lasix Injection -) 80 mg IVPUSH DAILY [facility] Last Admin: 07/28/17 12:23 Dose: 80 mg Gabapentin (Neurontin -) 600 mg PO BID [facility] Last Admin: 07/28/17 10:40 Dose: 600 mg Heparin Sodium (Porcine) (Heparin -) 5,000 unit SQ BID [facility] Last Admin: 07/28/17 10:40 Dose: 5,000 unit Ertapenem 1 gm/ Sodium (Chloride) 50 mls @ 50 mls/hr IVPB DAILY [facility] PRN Reason: Protocol Last Admin: 07/28/17 10:41 Dose: 50 mls/hr Levothyroxine Sodium (Synthroid -) 50 mcg PO DAILY@0700 [facility] Last Admin: 07/28/17 06:50 Dose: 50 mcg Melatonin (Melatonin) 3 mg PO HS [facility] Last Admin: 07/27/17 23:10 Dose: Not Given Metoprolol Tartrate (Lopressor -) 25 mg PO BID [facility] Last Admin: 07/28/17 10:40 Dose: 25 mg Potassium Chloride (K-Dur -) 20 meq PO DAILY [facility] Last Admin: 07/28/17 10:40 Dose: 20 meq Ranitidine HCl (Zantac -) 150 mg PO BID [facility] Last Admin: 07/28/17 10:39 Dose: 150 mg Senna (Senna -) 2 tab PO DAILY [facility] Last Admin: 07/28/17 10:40 Dose: 2 tab Tamsulosin HCl (Flomax -) 0.4 mg PO DAILY@0830 [facility] Last Admin: 07/28/17 10:40 Dose: 0.4 mg Tiotropium [place] (Spiriva -) 1 puff IH DAILY [facility] Last Admin: 07/26/17 09:10 Dose: 1 inh - Objective Vital Signs: Vital Signs Temperature 98.6 F 07/28/17 05:11 Pulse Rate 63 07/28/17 14:28 Respiratory Rate 20 07/28/17 09:00 Blood Pressure 109/73 07/28/17 05:11 O2 Sat by Pulse Oximetry (%) 97 07/28/17 14:28 Constitutional: Yes: No Distress Neck: Yes: Supple Cardiovascular: Yes: Regular Rate and Rhythm Respiratory: Yes: Rhonchi Gastrointestinal: Yes: Normal Bowel Sounds, Soft Extremities: Yes: Erythema (no tenderness or warmth, ulcers dry) Labs: CBC, BMP 07/28/17 05:42 07/28/17 05:42 - ....Imaging MRI: Report Reviewed ( cellulitis and bone marrow edema of Rt 1st toe distal phalanx suggestive of early OM) Problem List - Problems (1) Acute congestive heart failure Code(s): I50.9 - HEART FAILURE, UNSPECIFIED Qualifiers: Congestive heart failure type: systolic Qualified Code(s): I50.21 - Acute systolic (congestive) heart failure (2) CAD (coronary artery disease) Code(s): I25.10 - ATHSCL HEART DISEASE OF [place] CORONARY ARTERY W/O ANG PCTRS (3) CHF (congestive heart failure) Code(s): I50.9 - HEART FAILURE, UNSPECIFIED Qualifiers: Congestive heart failure type: unspecified congestive heart failure type Congestive heart failure chronicity: chronic Qualified Code(s): I50.9 - Heart failure, unspecified (4) Cellulitis Code(s): L03.90 - CELLULITIS, UNSPECIFIED (5) HTN (hypertension) Code(s): I10 - ESSENTIAL (PRIMARY) HYPERTENSION (6) Leukocytosis Code(s): D72.829 - ELEVATED WHITE BLOOD CELL COUNT, UNSPECIFIED Assessment/Plan Rt 1st toe cellulitis/ possible OM of distal phalynx leukocytosis improved from yesterday send for esr, crp, repeat cbc in am continue current antibiotics pt stable
[2017-07-28] MEDS: DOCUSATE SODIUM 100 MG CAPSULE (FP) PO SCH (21:52)
[2017-07-28] MEDS: DULoxetine HCL 30 MG CAPSULE.DR (FP) PO SCH (21:52)
[2017-07-28] MEDS: MELATONIN 1 MG TABLET PO SCH (21:53)
[2017-07-28] MEDS: ATORVASTATIN CA 10 MG TABLET (FP) PO SCH (21:53)
[2017-07-29] MEDS: LEVOTHYROXINE NA 50 MCG TABLET (FP) PO SCH (06:52)
[2017-07-29 07:08] LABS: MCH 32.4 pg (25.7-33.7); MCHC 32.7 g/dl (32.0-35.9); MEAN CELL VOLUME 99.2 fl (80-96); MEAN PLT VOLUME 8.4 fl (7.5-11.1); PLATELET COUNT 174 K/MM3 (134-434); RDW 17.9 % (11.9-15.9); WHITE BLOOD COUNT 8.1 K/mm3 (4.0-10.0)
[2017-07-29 07:21] LABS: ALBUMIN 2.5 g/dl (3.4-5.0); ANION GAP 5 (8-16); CO2 40 mmol/L (21-32); CREATININE 0.9 mg/dL (0.7-1.3); GLUCOSE,RANDOM 74 mg/dL (74-106); SGOT/AST 19 U/L (15-37); SGPT/ALT 8 U/L (12-78)
[2017-07-29 07:23] LABS: ALK PHOS 42 U/L (45-117); BILIRUBIN,TOTAL 0.8 mg/dL (0.2-1.0); TOT PROT 5.4 g/dl (6.4-8.2)
--- NOTE | 2017-07-29 08:55 | PN ---
Physical Exam: SUBJECTIVE: Patient seen and examined by the bedside C/o pain in right great toe. Denies SOB Denies CP No acute events overnight Aide reports poor PO intake OBJECTIVE: Vital Signs Period Temp Pulse Resp BP Sys/Mitchell Pulse Ox Last 24 Hr 97.4 F-98.4 F 58-68 20-20 96-118/46-58 97-98 Constitutional: Yes: Calm, Thin Eyes: Yes: Conjunctiva Clear, Dry OP Neck: Yes: Supple Cardiovascular: Yes: Pulse Irregular, Murmur Respiratory: Yes: Regular, Poor Air Entry Gastrointestinal: Yes: Normal Bowel Sounds, Soft Musculoskeletal: Yes: Joint Swelling (rt great toe), Other Extremities: Yes: Erythema (rt great toe)with healing pressure wound Neurological: Yes: Alert, Oriented Psychiatric: Yes: Alert Laboratory Results - last 24 hr 07/29/17 07/29/17 07/29/17 06:35 06:35 06:35 WBC 8.1 RBC 2.81 L Hgb 9.1 L Hct 27.9 L MCV 99.2 H MCH 32.4 MCHC 32.7 RDW 17.9 H Plt Count 174 MPV 8.4 Neutrophils % No Result Required. Lymphocytes % No Result Required. Sodium 137 Potassium 3.5 Chloride 92 L Carbon Dioxide 40 H Anion Gap 5 L BUN 18 Creatinine 0.9 Creat Clearance w eGFR > 60 Random Glucose 74 Calcium 8.0 L Total Bilirubin 0.8 AST 19 ALT 8 L Alkaline Phosphatase 42 L C-Reactive Protein 8.0 H D Cancelled Total Protein 5.4 L Albumin 2.5 L CBC, BMP 07/29/17 06:35 07/29/17 06:35 Active Medications Generic Name Dose Route Start Last Admin Trade Name Freq PRN Reason Stop Dose Admin Albuterol Sulfate 1 amp 07/27/17 14:06 Ventolin 0.083% Nebulizer Soln - NEB Q4H PRN SHORT OF BREATH/WHEEZING Aspirin 81 mg 07/26/17 06:15 07/28/17 10:39 Asa - PO 81 mg DAILY [facility] Administration Atorvastatin Calcium 10 mg 07/25/17 22:00 07/28/17 21:53 Lipitor - PO 10 mg HS [facility] Administration Docusate Sodium 200 mg 07/25/17 22:00 07/28/17 21:52 Colace - PO 200 mg HS [facility] Administration Duloxetine HCl 60 mg 07/25/17 22:00 07/28/17 21:52 Cymbalta - PO 60 mg HS [facility] Administration Fenofibric Acid 135 mg 07/25/17 10:00 07/28/17 10:39 Trilipix - PO 135 mg DAILY [facility] Administration Ferrous Sulfate 325 mg 07/25/17 10:00 07/28/17 10:40 Feosol - PO 325 mg DAILY [facility] Administration Fluticasone Propionate 2 spray 07/25/17 10:00 07/28/17 10:41 Flonase - NS 2 spray DAILY [facility] Administration Furosemide 80 mg 07/28/17 11:10 07/28/17 12:23 Lasix Injection - IVPUSH 80 mg DAILY [facility] Administration Gabapentin 600 mg 07/25/17 10:00 07/28/17 21:53 Neurontin - PO 600 mg BID [facility] Administration Heparin Sodium (Porcine) 5,000 unit 07/25/17 09:31 07/28/17 21:52 Heparin - SQ 5,000 unit BID [facility] Administration Ertapenem 1 gm/ Sodium 50 mls @ 50 mls/hr 07/26/17 17:00 07/28/17 10:41 Chloride IVPB 50 mls/hr DAILY [facility] Administration Protocol Levothyroxine Sodium 50 mcg 07/25/17 07:00 07/29/17 06:52 Synthroid - PO 50 mcg DAILY@0700 [facility] Administration Melatonin 3 mg 07/25/17 22:00 07/28/17 21:53 Melatonin PO 3 mg HS [facility] Administration Metoprolol Tartrate 25 mg 07/26/17 10:00 07/28/17 21:53 Lopressor - PO 25 mg BID [facility] Administration Potassium Chloride 20 meq 07/25/17 10:00 07/28/17 10:40 K-Dur - PO 20 meq DAILY [facility] Administration Ranitidine HCl 150 mg 07/25/17 10:00 07/28/17 21:54 Zantac - PO 150 mg BID [facility] Administration Senna 2 tab 07/25/17 10:00 07/28/17 10:40 Senna - PO 2 tab DAILY [facility] Administration Tamsulosin HCl 0.4 mg 07/25/17 08:30 07/28/17 10:40 Flomax - PO 0.4 mg DAILY@0830 [facility] Administration Tiotropium [place] 1 puff 07/25/17 10:00 07/26/17 09:10 Spiriva - IH 1 inh DAILY [facility] Administration ASSESSMENT/PLAN: 1. Cellulitis and early osteomyelitis of Right Great Toe - acute . Elevated CRP. NO fever or signs of SIRS / sepsis. MRI confirms early OM . He was started on ertapenem . - C/W IV antibiotics - ID follow up re length of treatment 2. Acute exacerbation of heart failure - diastolic dysfunction - improved after diuresis. No SOB . Over 1.5 L negative balance . Appears dry . CXR today shows improvement of vascular congestion. - consider lowering dose of lasix and switching to PO 3. AFib - rate controlled . AC on hold due to recent hematuria/ anemia/ trombocytopenia. - ASA for now 4. CAD - stable, no chest pain - c/w current meds 5. DVT PPX - heparin SC Visit type - Emergency Visit Emergency Visit: No - New Patient This patient is new to me today: Yes Date on this admission: 07/29/17 - Critical Care Critical Care patient: No
[2017-07-29] MEDS: TAMSULOSIN HCL 0.4 MG CAP.ER.24H (FP) PO SCH (10:30)
[2017-07-29] MEDS: GABAPENTIN 300 MG CAPSULE (FP) PO SCH ×2 (10:34→21:22)
[2017-07-29] MEDS: RANITIDINE HCL 150 MG TABLET (FP) PO SCH ×2 (10:36→21:21)
[2017-07-29] MEDS: FENOFIBRIC ACID 135 MG CAP PO SCH (10:36)
[2017-07-29] MEDS: FERROUS SO4 325 MG TABLET (FP) PO SCH (10:37)
[2017-07-29] MEDS: METOPROLOL TARTRATE 25 MG TABLET (FP) PO SCH ×2 (10:37→21:21)
[2017-07-29] MEDS: ASPIRIN 81 MG CHEWABLE TABLETS PO SCH (10:37)
[2017-07-29] MEDS: SENNOSIDES 8.6MG TABLET (FP) PO SCH (10:38)
[2017-07-29] MEDS: POTASSIUM CHLORIDE TABS 20 MEQ TABLET.ER (FP) PO SCH (10:38)
[2017-07-29] MEDS: ERTAPENEM SODIUM 1 GM in SODIUM CHLORIDE 50 ML IVPB SCH (10:41)
[2017-07-29] MEDS: FLUTICASONE PROP 0.05% 16 GM NASAL SPRAY NS SCH (10:45)
[2017-07-29] MEDS: HEPARIN NA (PORCINE) 5,000 UNITS/ML 1ML VIAL SQ SCH ×2 (10:45→21:22)
[2017-07-29] MEDS: TIOTROPIUM BROMIDE 18 MCG/INH (DEVICE W/ 5 CAPSULES) IH SCH ×3 (10:47→11:00)
--- NOTE | 2017-07-29 10:50 | PN ---
Progress Note, Physician Chief Complaint: chf History of Present Illness: very sleepy today has had no sob as per at bedside--but not ambulating was very sob without O2 at home recently per no leg swelling, palpit, cp to her knowledge - Current Medication List Current Medications: Active Medications Albuterol Sulfate (Ventolin 0.083% Nebulizer Soln -) 1 amp NEB Q4H PRN PRN Reason: SHORT OF BREATH/WHEEZING Aspirin (Asa -) 81 mg PO DAILY [facility] Last Admin: 07/28/17 10:39 Dose: 81 mg Atorvastatin Calcium (Lipitor -) 10 mg PO HS [facility] Last Admin: 07/28/17 21:53 Dose: 10 mg Docusate Sodium (Colace -) 200 mg PO HS [facility] Last Admin: 07/28/17 21:52 Dose: 200 mg Duloxetine HCl (Cymbalta -) 60 mg PO HS [facility] Last Admin: 07/28/17 21:52 Dose: 60 mg Fenofibric Acid (Trilipix -) 135 mg PO DAILY [facility] Last Admin: 07/28/17 10:39 Dose: 135 mg Ferrous Sulfate (Feosol -) 325 mg PO DAILY [facility] Last Admin: 07/28/17 10:40 Dose: 325 mg Fluticasone Propionate (Flonase -) 2 spray NS DAILY [facility] Last Admin: 07/28/17 10:41 Dose: 2 spray Furosemide (Lasix Injection -) 80 mg IVPUSH DAILY [facility] Last Admin: 07/28/17 12:23 Dose: 80 mg Gabapentin (Neurontin -) 600 mg PO BID [facility] Last Admin: 07/28/17 21:53 Dose: 600 mg Heparin Sodium (Porcine) (Heparin -) 5,000 unit SQ BID [facility] Last Admin: 07/28/17 21:52 Dose: 5,000 unit Ertapenem 1 gm/ Sodium (Chloride) 50 mls @ 50 mls/hr IVPB DAILY [facility] PRN Reason: Protocol Last Admin: 07/28/17 10:41 Dose: 50 mls/hr Levothyroxine Sodium (Synthroid -) 50 mcg PO DAILY@0700 [facility] Last Admin: 07/29/17 06:52 Dose: 50 mcg Melatonin (Melatonin) 3 mg PO HS [facility] Last Admin: 07/28/17 21:53 Dose: 3 mg Metoprolol Tartrate (Lopressor -) 25 mg PO BID [facility] Last Admin: 07/28/17 21:53 Dose: 25 mg Potassium Chloride (K-Dur -) 20 meq PO DAILY [facility] Last Admin: 07/28/17 10:40 Dose: 20 meq Ranitidine HCl (Zantac -) 150 mg PO BID [facility] Last Admin: 07/28/17 21:54 Dose: 150 mg Senna (Senna -) 2 tab PO DAILY [facility] Last Admin: 07/28/17 10:40 Dose: 2 tab Tamsulosin HCl (Flomax -) 0.4 mg PO DAILY@0830 [facility] Last Admin: 07/28/17 10:40 Dose: 0.4 mg Tiotropium [place] (Spiriva -) 1 puff IH DAILY [facility] Last Admin: 07/26/17 09:10 Dose: 1 inh - Objective Vital Signs: Vital Signs Temperature 97.9 F 07/29/17 06:00 Pulse Rate 60 07/29/17 06:00 Respiratory Rate 20 07/29/17 06:00 Blood Pressure 100/58 07/29/17 06:00 O2 Sat by Pulse Oximetry (%) 98 07/28/17 21:00 Constitutional: Yes: Well Nourished, No Distress, Calm Cardiovascular: Yes: Pulse Irregular, JVD ((L neck)), S1, S2. No: Gallop, Murmur Respiratory: Yes: Regular, CTA Bilaterally (not taking deep breaths). No: Accessory Muscle Use, Rales, Wheezes Extremities: No: Cold Edema: No Neurological: Yes: Lethargy. No: Seizure Psychiatric: No: Agitated Labs: CBC, BMP 07/29/17 06:35 07/29/17 06:35 - ....Imaging EKG: Other (tele: AF, good HR control) Assessment/Plan ecg : afib, with pvc's/aberrancy. lad, rbb--no change vs 05/19 cxr: minimal improvement in congestive changes, no effusions cxr 07/29: no change echo 05/2017: mild, global LV hypo; nl RV; mild MR; mild ao root dilation (no RVSP) mibi 10/2016: no ischemia a/p: sob/acute diastolic hf exacerbation: - BNP 19K (prior range 18K-27K), cxr with residual congestive changes - receiving lasix 40 iv qd - 11/25: lytes/renal fxn stable. wt trend up 8 lb in 2d, ? accurate. - no more sob but suspect marked JVD still on exam, and lung exam remains wet - 07/28: wt up further, JVD persists. only 1000 cc UOP yest (says he's collecting it in urinal--accurate?). bun and creat improved today. - on review of MAR, no pm dose lasix given yest (i was not consulted)--so still received 40 iv qd. will change to lasix 80 iv qd. - 07/29: wt down, bun/creat stable. cxr no change (mild interstitial markings, vasc redistribution). cont lasix 80 iv qd today afib: - AC had been held on last admit for hematuria and anemia/thrombocytopenia. - cont ASA for now, per prior plan - rate controlled, cont low dose bb cad s/p remote pci: -stable -no signs acs: troponins flat and no ecg changes -cont ASA, statin, bb. has been off acei due to low bp tendencies htn: -stable, cont current meds. hld: -cont home statin, NO INDICATION FOR ONGOING CARDIAC MONITORING--D/C TELE
[2017-07-29] MEDS: FUROSEMIDE 40 MG/4 ML INJECTABLE VIAL IVPUSH SCH (10:57)
--- NOTE | 2017-07-29 10:58 | PN ---
Progress Note, Physician History of Present Illness: PULMONARY ALERT,LAYING IN BED APPEARS COMFORTABLE,-RESP DISTRESS,-CP. - Current Medication List Current Medications: Active Medications Albuterol Sulfate (Ventolin 0.083% Nebulizer Soln -) 1 amp NEB Q4H PRN PRN Reason: SHORT OF BREATH/WHEEZING Aspirin (Asa -) 81 mg PO DAILY [facility] Last Admin: 07/28/17 10:39 Dose: 81 mg Atorvastatin Calcium (Lipitor -) 10 mg PO HS [facility] Last Admin: 07/28/17 21:53 Dose: 10 mg Docusate Sodium (Colace -) 200 mg PO HS [facility] Last Admin: 07/28/17 21:52 Dose: 200 mg Duloxetine HCl (Cymbalta -) 60 mg PO HS [facility] Last Admin: 07/28/17 21:52 Dose: 60 mg Fenofibric Acid (Trilipix -) 135 mg PO DAILY [facility] Last Admin: 07/28/17 10:39 Dose: 135 mg Ferrous Sulfate (Feosol -) 325 mg PO DAILY [facility] Last Admin: 07/28/17 10:40 Dose: 325 mg Fluticasone Propionate (Flonase -) 2 spray NS DAILY [facility] Last Admin: 07/28/17 10:41 Dose: 2 spray Furosemide (Lasix Injection -) 80 mg IVPUSH DAILY [facility] Last Admin: 07/28/17 12:23 Dose: 80 mg Gabapentin (Neurontin -) 600 mg PO BID [facility] Last Admin: 07/28/17 21:53 Dose: 600 mg Heparin Sodium (Porcine) (Heparin -) 5,000 unit SQ BID [facility] Last Admin: 07/28/17 21:52 Dose: 5,000 unit Ertapenem 1 gm/ Sodium (Chloride) 50 mls @ 50 mls/hr IVPB DAILY [facility] PRN Reason: Protocol Last Admin: 07/28/17 10:41 Dose: 50 mls/hr Levothyroxine Sodium (Synthroid -) 50 mcg PO DAILY@0700 [facility] Last Admin: 07/29/17 06:52 Dose: 50 mcg Melatonin (Melatonin) 3 mg PO HS [facility] Last Admin: 07/28/17 21:53 Dose: 3 mg Metoprolol Tartrate (Lopressor -) 25 mg PO BID [facility] Last Admin: 07/28/17 21:53 Dose: 25 mg Potassium Chloride (K-Dur -) 20 meq PO DAILY [facility] Last Admin: 07/28/17 10:40 Dose: 20 meq Ranitidine HCl (Zantac -) 150 mg PO BID [facility] Last Admin: 07/28/17 21:54 Dose: 150 mg Senna (Senna -) 2 tab PO DAILY [facility] Last Admin: 07/28/17 10:40 Dose: 2 tab Tamsulosin HCl (Flomax -) 0.4 mg PO DAILY@0830 [facility] Last Admin: 07/28/17 10:40 Dose: 0.4 mg Tiotropium [place] (Spiriva -) 1 puff IH DAILY [facility] Last Admin: 07/26/17 09:10 Dose: 1 inh - Objective Vital Signs: Vital Signs Temperature 97.9 F 07/29/17 06:00 Pulse Rate 60 07/29/17 06:00 Respiratory Rate 20 07/29/17 06:00 Blood Pressure 100/58 07/29/17 06:00 O2 Sat by Pulse Oximetry (%) 98 07/28/17 21:00 Constitutional: Yes: Calm, Thin Eyes: Yes: WNL HENT: Yes: WNL Neck: Yes: WNL Cardiovascular: Yes: Pulse Irregular, S1, S2 Respiratory: Yes: Diminished Gastrointestinal: Yes: Normal Bowel Sounds, Soft Extremities: Yes: WNL Edema: No Labs: CBC, BMP 07/29/17 06:35 07/29/17 06:35 - ....Imaging Chest X-ray: Report Reviewed, Image Reviewed Assessment/Plan Problem List - Problems (1) Acute congestive heart failure Code(s): I50.9 - HEART FAILURE, UNSPECIFIED Qualifiers: Congestive heart failure type: systolic Qualified Code(s): I50.21 - Acute systolic (congestive) heart failure (2) Atrial fibrillation Code(s): I48.91 - UNSPECIFIED ATRIAL FIBRILLATION Qualifiers: Atrial fibrillation type: chronic Qualified Code(s): I48.2 - Chronic atrial fibrillation (3) CAD (coronary artery disease) Code(s): I25.10 - ATHSCL HEART DISEASE OF [place] CORONARY ARTERY W/O ANG PCTRS (4) CHF (congestive heart failure) Code(s): I50.9 - HEART FAILURE, UNSPECIFIED Qualifiers: Congestive heart failure type: unspecified congestive heart failure type Congestive heart failure chronicity: chronic Qualified Code(s): I50.9 - Heart failure, unspecified (5) Cellulitis Code(s): L03.90 - CELLULITIS, UNSPECIFIED (6) Coronary atherosclerosis Code(s): I25.10 - ATHSCL HEART DISEASE OF [place] CORONARY ARTERY W/O ANG PCTRS (7) GERD (gastroesophageal reflux disease) Code(s): K21.9 - GASTRO-ESOPHAGEAL REFLUX DISEASE WITHOUT ESOPHAGITIS (8) HTN (hypertension) Code(s): I10 - ESSENTIAL (PRIMARY) HYPERTENSION (9) Hyperlipemia Code(s): E78.5 - HYPERLIPIDEMIA, UNSPECIFIED (10) Hypothyroidism Code(s): E03.9 - HYPOTHYROIDISM, UNSPECIFIED (11) Infected abrasion of right foot or toe Code(s): JQG7108 - (12) Malignant neoplasm of skin of [place] Code(s): C44.309 - UNSP MALIGNANT NEOPLASM OF SKIN OF OTHER PARTS OF FACE (13) PVD (peripheral vascular disease) Code(s): I73.9 - PERIPHERAL VASCULAR DISEASE, UNSPECIFIED Assessment/Plan BD TX ABX per ID (do not suspect recurrent PNA) O2 Molly PELLETIER
[2017-07-29 11:30] LABS: REACTIVE LYMPHOCYTES 1 % (0-80)
[2017-07-29 11:31] LABS: PLATELET ESTIMATE ADEQUATE
--- NOTE | 2017-07-29 13:45 | PN ---
Progress Note, Physician Chief Complaint: Infectious Disease follow up: History of Present Illness: Pt is easily arousable, afebrile. States throbbing of Rt great toe but not tender to touch. No other specific complaints. - Current Medication List Current Medications: Active Medications Albuterol Sulfate (Ventolin 0.083% Nebulizer Soln -) 1 amp NEB Q4H PRN PRN Reason: SHORT OF BREATH/WHEEZING Aspirin (Asa -) 81 mg PO DAILY [facility] Last Admin: 07/29/17 10:37 Dose: 81 mg Atorvastatin Calcium (Lipitor -) 10 mg PO HS [facility] Last Admin: 07/28/17 21:53 Dose: 10 mg Docusate Sodium (Colace -) 200 mg PO HS [facility] Last Admin: 07/28/17 21:52 Dose: 200 mg Duloxetine HCl (Cymbalta -) 60 mg PO HS [facility] Last Admin: 07/28/17 21:52 Dose: 60 mg Fenofibric Acid (Trilipix -) 135 mg PO DAILY [facility] Last Admin: 07/29/17 10:36 Dose: 135 mg Ferrous Sulfate (Feosol -) 325 mg PO DAILY [facility] Last Admin: 07/29/17 10:37 Dose: 325 mg Fluticasone Propionate (Flonase -) 2 spray NS DAILY [facility] Last Admin: 07/29/17 10:45 Dose: 2 spray Furosemide (Lasix Injection -) 80 mg IVPUSH DAILY [facility] Last Admin: 07/29/17 10:57 Dose: 80 mg Gabapentin (Neurontin -) 600 mg PO BID [facility] Last Admin: 07/29/17 10:34 Dose: 600 mg Heparin Sodium (Porcine) (Heparin -) 5,000 unit SQ BID [facility] Last Admin: 07/29/17 10:45 Dose: 5,000 unit Ertapenem 1 gm/ Sodium (Chloride) 50 mls @ 50 mls/hr IVPB DAILY [facility] PRN Reason: Protocol Last Admin: 07/29/17 10:41 Dose: 50 mls/hr Levothyroxine Sodium (Synthroid -) 50 mcg PO DAILY@0700 [facility] Last Admin: 07/29/17 06:52 Dose: 50 mcg Melatonin (Melatonin) 3 mg PO HS [facility] Last Admin: 07/28/17 21:53 Dose: 3 mg Metoprolol Tartrate (Lopressor -) 25 mg PO BID [facility] Last Admin: 07/29/17 10:37 Dose: 25 mg Potassium Chloride (K-Dur -) 20 meq PO DAILY [facility] Last Admin: 07/29/17 10:38 Dose: 20 meq Ranitidine HCl (Zantac -) 150 mg PO BID [facility] Last Admin: 07/29/17 10:36 Dose: 150 mg Senna (Senna -) 2 tab PO DAILY [facility] Last Admin: 07/29/17 10:38 Dose: 2 tab Tamsulosin HCl (Flomax -) 0.4 mg PO DAILY@0830 [facility] Last Admin: 07/29/17 10:30 Dose: 0.4 mg Tiotropium [place] (Spiriva -) 1 puff IH DAILY [facility] Last Admin: 07/29/17 11:00 Dose: 1 inh - Objective Vital Signs: Vital Signs Temperature 97.9 F 07/29/17 06:00 Pulse Rate 60 07/29/17 06:00 Respiratory Rate 20 07/29/17 06:00 Blood Pressure 100/58 07/29/17 06:00 O2 Sat by Pulse Oximetry (%) 98 07/28/17 21:00 Constitutional: Yes: No Distress, Calm Neck: Yes: Supple Cardiovascular: Yes: Regular Rate and Rhythm Respiratory: Yes: Rhonchi Gastrointestinal: Yes: Normal Bowel Sounds, Soft Extremities: Yes: Erythema (Rt 1st toe mildly erythematous but no warmth, no cyanosis, ulcerations dry, no fluctuance or severe pain with palpation) Neurological: Yes: Alert Labs: CBC, BMP 07/29/17 06:35 07/29/17 06:35 ESR- 86, CRP - 8 Problem List - Problems (1) Acute congestive heart failure Code(s): I50.9 - HEART FAILURE, UNSPECIFIED Qualifiers: Congestive heart failure type: systolic Qualified Code(s): I50.21 - Acute systolic (congestive) heart failure (2) CAD (coronary artery disease) Code(s): I25.10 - ATHSCL HEART DISEASE OF [place] CORONARY ARTERY W/O ANG PCTRS (3) CHF (congestive heart failure) Code(s): I50.9 - HEART FAILURE, UNSPECIFIED Qualifiers: Congestive heart failure type: unspecified congestive heart failure type Congestive heart failure chronicity: chronic Qualified Code(s): I50.9 - Heart failure, unspecified (4) Cellulitis Code(s): L03.90 - CELLULITIS, UNSPECIFIED (5) HTN (hypertension) Code(s): I10 - ESSENTIAL (PRIMARY) HYPERTENSION (6) Leukocytosis Code(s): D72.829 - ELEVATED WHITE BLOOD CELL COUNT, UNSPECIFIED Assessment/Plan Rt 1st toe cellulitis/ possible OM of distal phalynx leukocytosis resolved elevated esr/crp would need biopsy/culture for definitive diagnosis continue current antibiotics pt stable
[2017-07-29] MEDS: DULoxetine HCL 30 MG CAPSULE.DR (FP) PO SCH (21:21)
[2017-07-29] MEDS: ATORVASTATIN CA 10 MG TABLET (FP) PO SCH (21:21)
[2017-07-29] MEDS: DOCUSATE SODIUM 100 MG CAPSULE (FP) PO SCH (21:21)
[2017-07-29] MEDS ORDERED: PT OWN MED DRAWER 7, Y5N ONE (21:23)
[2017-07-29] MEDS: MELATONIN 1 MG TABLET PO SCH (22:08)
[2017-07-30] MEDS: LEVOTHYROXINE NA 50 MCG TABLET (FP) PO SCH (06:44)
[2017-07-30 08:24] LABS: MCH 32.7 pg (25.7-33.7); MCHC 32.9 g/dl (32.0-35.9); MEAN CELL VOLUME 99.4 fl (80-96); MEAN PLT VOLUME 8.2 fl (7.5-11.1); PLATELET COUNT 162 K/MM3 (134-434); WHITE BLOOD COUNT 8.2 K/mm3 (4.0-10.0)
[2017-07-30 08:46] LABS: ANION GAP 3 (8-16); CALCIUM 8.2 mg/dL (8.5-10.1); CO2 41 mmol/L (21-32); CREATININE 0.9 mg/dL (0.7-1.3); GLUCOSE,RANDOM 73 mg/dL (74-106)
[2017-07-30] MEDS: TAMSULOSIN HCL 0.4 MG CAP.ER.24H (FP) PO SCH (08:46)
[2017-07-30] MEDS: FERROUS SO4 325 MG TABLET (FP) PO SCH (10:31)
[2017-07-30] MEDS: ASPIRIN 81 MG CHEWABLE TABLETS PO SCH (10:31)
[2017-07-30] MEDS: FLUTICASONE PROP 0.05% 16 GM NASAL SPRAY NS SCH (10:31)
[2017-07-30] MEDS: HEPARIN NA (PORCINE) 5,000 UNITS/ML 1ML VIAL SQ SCH ×2 (10:32→21:43)
[2017-07-30] MEDS: ERTAPENEM SODIUM 1 GM in SODIUM CHLORIDE 50 ML IVPB SCH (10:32)
[2017-07-30] MEDS: FUROSEMIDE 40 MG/4 ML INJECTABLE VIAL IVPUSH SCH (10:33)
[2017-07-30] MEDS: POTASSIUM CHLORIDE TABS 20 MEQ TABLET.ER (FP) PO SCH (10:33)
[2017-07-30] MEDS: METOPROLOL TARTRATE 25 MG TABLET (FP) PO SCH ×2 (10:35→21:42)
[2017-07-30] MEDS: SENNOSIDES 8.6MG TABLET (FP) PO SCH (10:35)
[2017-07-30] MEDS: GABAPENTIN 300 MG CAPSULE (FP) PO SCH ×2 (10:35→21:42)
[2017-07-30] MEDS: TIOTROPIUM BROMIDE 18 MCG/INH (DEVICE W/ 5 CAPSULES) IH SCH (10:36)
[2017-07-30] MEDS: FENOFIBRIC ACID 135 MG CAP PO SCH (10:36)
[2017-07-30] MEDS: RANITIDINE HCL 150 MG TABLET (FP) PO SCH ×2 (10:36→21:42)
--- NOTE | 2017-07-30 10:39 | PN ---
Progress Note (short form) - Note Progress Note: PULMONARY Somnolent but arousable. Denies shortness of breath or chest pain. Last Vital Signs Temp Pulse Resp BP Pulse Ox 98.2 F 66 20 111/51 99 07/30/17 10:00 07/30/17 10:00 07/30/17 10:00 07/30/17 10:00 07/29/17 21:00 Gen: somnolent but arousable Heart: RRR Lung: decreased breath sounds at the bases Abd: soft, nontender Ext: no edema CBC, BMP 07/30/17 06:45 07/30/17 06:45 Active Medications Albuterol Sulfate (Ventolin 0.083% Nebulizer Soln -) 1 amp NEB Q4H PRN PRN Reason: SHORT OF BREATH/WHEEZING Aspirin (Asa -) 81 mg PO DAILY [facility] Last Admin: 07/30/17 10:31 Dose: 81 mg Atorvastatin Calcium (Lipitor -) 10 mg PO HS [facility] Last Admin: 07/29/17 21:21 Dose: 10 mg Docusate Sodium (Colace -) 200 mg PO HS [facility] Last Admin: 07/29/17 21:21 Dose: 200 mg Duloxetine HCl (Cymbalta -) 60 mg PO HS [facility] Last Admin: 07/29/17 21:21 Dose: 60 mg Fenofibric Acid (Trilipix -) 135 mg PO DAILY [facility] Last Admin: 07/30/17 10:36 Dose: 135 mg Ferrous Sulfate (Feosol -) 325 mg PO DAILY [facility] Last Admin: 07/30/17 10:31 Dose: 325 mg Fluticasone Propionate (Flonase -) 2 spray NS DAILY [facility] Last Admin: 07/30/17 10:31 Dose: 2 spray Furosemide (Lasix Injection -) 80 mg IVPUSH DAILY [facility] Last Admin: 07/30/17 10:33 Dose: 80 mg Gabapentin (Neurontin -) 600 mg PO BID [facility] Last Admin: 07/30/17 10:35 Dose: 600 mg Heparin Sodium (Porcine) (Heparin -) 5,000 unit SQ BID [facility] Last Admin: 07/30/17 10:32 Dose: 5,000 unit Ertapenem 1 gm/ Sodium (Chloride) 50 mls @ 50 mls/hr IVPB DAILY [facility] PRN Reason: Protocol Last Admin: 07/30/17 10:32 Dose: 50 mls/hr Levothyroxine Sodium (Synthroid -) 50 mcg PO DAILY@0700 [facility] Last Admin: 07/30/17 06:44 Dose: 50 mcg Melatonin (Melatonin) 3 mg PO HS [facility] Last Admin: 07/29/17 22:08 Dose: 3 mg Metoprolol Tartrate (Lopressor -) 25 mg PO BID [facility] Last Admin: 07/30/17 10:35 Dose: 25 mg Potassium Chloride (K-Dur -) 20 meq PO DAILY [facility] Last Admin: 07/30/17 10:33 Dose: 20 meq Ranitidine HCl (Zantac -) 150 mg PO BID [facility] Last Admin: 07/30/17 10:36 Dose: 150 mg Senna (Senna -) 2 tab PO DAILY [facility] Last Admin: 07/30/17 10:35 Dose: 2 tab Tamsulosin HCl (Flomax -) 0.4 mg PO DAILY@0830 [facility] Last Admin: 07/30/17 08:46 Dose: 0.4 mg Tiotropium [place] (Spiriva -) 1 puff IH DAILY [facility] Last Admin: 07/30/17 10:36 Dose: 1 inh A/P Acute on Chronic Diastolic Heart Failure Atrial Fibrillation CAD HTN Hypercholesterolemia - continue lasix - monitor urine output, creatinine - daily weights, I/Os - inhaled bronchodilators as needed - aspiration precautions - DVT prophylaxis
[2017-07-30 11:02] LABS: PLATELET ESTIMATE ADEQUATE; TOTAL CELLS COUNTED 100
--- NOTE | 2017-07-30 11:41 | PN ---
Progress Note, Physician Chief Complaint: Mr Rivas says he is feeling good today. Denies cp or n/v. Says his sob has resolved and his breathing is much better. - Current Medication List Current Medications: Active Medications Albuterol Sulfate (Ventolin 0.083% Nebulizer Soln -) 1 amp NEB Q4H PRN PRN Reason: SHORT OF BREATH/WHEEZING Aspirin (Asa -) 81 mg PO DAILY [facility] Last Admin: 07/30/17 10:31 Dose: 81 mg Atorvastatin Calcium (Lipitor -) 10 mg PO HS [facility] Last Admin: 07/29/17 21:21 Dose: 10 mg Docusate Sodium (Colace -) 200 mg PO HS [facility] Last Admin: 07/29/17 21:21 Dose: 200 mg Duloxetine HCl (Cymbalta -) 60 mg PO HS [facility] Last Admin: 07/29/17 21:21 Dose: 60 mg Fenofibric Acid (Trilipix -) 135 mg PO DAILY [facility] Last Admin: 07/30/17 10:36 Dose: 135 mg Ferrous Sulfate (Feosol -) 325 mg PO DAILY [facility] Last Admin: 07/30/17 10:31 Dose: 325 mg Fluticasone Propionate (Flonase -) 2 spray NS DAILY [facility] Last Admin: 07/30/17 10:31 Dose: 2 spray Furosemide (Lasix Injection -) 80 mg IVPUSH DAILY [facility] Last Admin: 07/30/17 10:33 Dose: 80 mg Gabapentin (Neurontin -) 600 mg PO BID [facility] Last Admin: 07/30/17 10:35 Dose: 600 mg Heparin Sodium (Porcine) (Heparin -) 5,000 unit SQ BID [facility] Last Admin: 07/30/17 10:32 Dose: 5,000 unit Ertapenem 1 gm/ Sodium (Chloride) 50 mls @ 50 mls/hr IVPB DAILY [facility] PRN Reason: Protocol Last Admin: 07/30/17 10:32 Dose: 50 mls/hr Levothyroxine Sodium (Synthroid -) 50 mcg PO DAILY@0700 [facility] Last Admin: 07/30/17 06:44 Dose: 50 mcg Melatonin (Melatonin) 3 mg PO HS [facility] Last Admin: 07/29/17 22:08 Dose: 3 mg Metoprolol Tartrate (Lopressor -) 25 mg PO BID [facility] Last Admin: 07/30/17 10:35 Dose: 25 mg Potassium Chloride (K-Dur -) 20 meq PO DAILY [facility] Last Admin: 07/30/17 10:33 Dose: 20 meq Ranitidine HCl (Zantac -) 150 mg PO BID [facility] Last Admin: 07/30/17 10:36 Dose: 150 mg Senna (Senna -) 2 tab PO DAILY [facility] Last Admin: 07/30/17 10:35 Dose: 2 tab Tamsulosin HCl (Flomax -) 0.4 mg PO DAILY@0830 [facility] Last Admin: 07/30/17 08:46 Dose: 0.4 mg Tiotropium [place] (Spiriva -) 1 puff IH DAILY [facility] Last Admin: 07/30/17 10:36 Dose: 1 inh - Objective Vital Signs: Vital Signs Temperature 36.8 C 07/30/17 10:00 Pulse Rate 66 07/30/17 10:00 Respiratory Rate 20 07/30/17 10:00 Blood Pressure 111/51 07/30/17 10:00 O2 Sat by Pulse Oximetry (%) 99 07/29/17 21:00 Constitutional: Yes: No Distress, Calm, Thin Cardiovascular: Yes: Pulse Irregular, Murmur. No: Tachycardia, Gallop, Rub Respiratory: Yes: Regular, CTA Bilaterally, On Nasal O2. No: Rales, Rhonchi, Wheezes Gastrointestinal: Yes: Normal Bowel Sounds, Soft. No: Distention, Tenderness Extremities: Yes: Other (R large toe with ulceration and minimal erythema) Edema: No Labs: CBC, BMP 07/30/17 06:45 07/30/17 06:45 Problem List - Problems (1) Acute congestive heart failure Assessment/Plan: -appreciate cardiology assistance - Code(s): I50.9 - HEART FAILURE, UNSPECIFIED Qualifiers: Congestive heart failure type: systolic Qualified Code(s): I50.21 - Acute systolic (congestive) heart failure (2) Osteomyelitis Assessment/Plan: -MRI shows very early signs of osteomyelitis -currently on ertapenem, day 5 -case d/w ID -physical exam not severe -suspect vascular in nature -discusses possibility of biopsy, however concerning for wound healing secondary to PVD -will d/w options Code(s): M86.9 - OSTEOMYELITIS, UNSPECIFIED Qualifiers: Osteomyelitis location: foot Laterality: right (3) Acute respiratory failure Assessment/Plan: -much improved -continue lasix, consider change to oral lasix per cardiology -continue oxygen support Code(s): J96.00 - ACUTE RESPIRATORY FAILURE, UNSP W HYPOXIA OR HYPERCAPNIA Qualifiers: Respiratory failure complication: hypoxia and hypercapnia Qualified Code(s) : J96.01 - Acute respiratory failure with hypoxia (4) Alkalosis, metabolic Assessment/Plan: -secondary to diuresis -monitor Code(s): E87.3 - ALKALOSIS (5) Atrial fibrillation Assessment/Plan: -rate controlled -not an anticoagulation candidate secondary to suspected GI bleed last admission and inability to do scopes -continue aspirin Code(s): I48.91 - UNSPECIFIED ATRIAL FIBRILLATION Qualifiers: Atrial fibrillation type: chronic Qualified Code(s): I48.2 - Chronic atrial fibrillation (6) CAD (coronary artery disease) Assessment/Plan: -quiescent -continue medical management -cardiology following Code(s): I25.10 - ATHSCL HEART DISEASE OF [place] CORONARY ARTERY W/O ANG PCTRS (7) HTN (hypertension) Assessment/Plan: -controlled Code(s): I10 - ESSENTIAL (PRIMARY) HYPERTENSION (8) Hyperlipemia Assessment/Plan: -continue statin Code(s): E78.5 - HYPERLIPIDEMIA, UNSPECIFIED (9) PVD (peripheral vascular disease) Assessment/Plan: -cannot anticoagulate secondary to history of GI bleed -will d/w about when this was last evaluated (records show 2013 here but possible outpatient follow up) Code(s): I73.9 - PERIPHERAL VASCULAR DISEASE, UNSPECIFIED
[2017-07-30] MEDS ORDERED: PT OWN MED DRAWER 7, Y5N ONE ×3 (12:03→21:33)
--- NOTE | 2017-07-30 15:03 | CONSULT ---
<Mahi Cristina - Last Filed: 07/30/17 16:35> - Consultation REQUESTING PROVIDER: Dr. Porras CONSULT REQUEST: We have been asked to surgically evaluate this patient for ( specify). PCP:Jose Chaney MD HISTORY OF PRESENT ILLNESS: 86 yo male with a significant past medical history of afib, CHF, HTN, HLD and PVD. Came to the ER with complaints of increased dyspnea. He was recently treated for pneumonia at [facility] and had been in a nursing facility until several days ago when he was discharged to home. He has been receiving oral antibiotics for his pneumonia. He states that he has had the ulcer for several months. PMHx: afib, CHF, HTN, PVD PSHx: b/l knee surgery, Revascularization right femoral artery with stent and balloon angioplasty 05/05/14, right second toe amp 05/12/14 Home Medications Medication Instructions Recorded Atorvastatin Ca [Lipitor] 10 mg PO HS 12/12/15 Docusate Sodium [Colace -] 200 mg PO HS 12/12/15 Duloxetine HCl [Cymbalta] 60 mg PO HS 12/12/15 Fenofibrate Nanocrystallized 145 mg PO DAILY 12/12/15 [Tricor] Ferrous Sulfate [Slow Release Iron] 45 mg PO DAILY 12/12/15 Fluticasone Prop 0.05% Nasal 2 spray NS DAILY 12/12/15 [Flonase -] Levomefolate/B6/B12/Algal Oil 1 each PO BID 12/12/15 [Metanx Capsule] Levothyroxine [Synthroid -] 50 mcg PO DAILY 12/12/15 Potassium Chloride 20 meq PO DAILY 12/12/15 Sennosides [Senna Concentrate] 17.2 mg PO DAILY 12/12/15 Gabapentin 600 mg PO BID 05/08/17 Melatonin 3 mg PO DAILY 05/08/17 Acetaminophen [Tylenol .Regular 650 mg PO Q6H PRN #0 tablet 06/06/17 Strength -] Albuterol 2.5/Ipratropium 0.5 1 amp NEB Q4H PRN #0 amp 06/06/17 [Duoneb -] Furosemide [Lasix -] 40 mg PO DAILY tablet 06/06/17 Metoprolol Tartrate [Lopressor -] 25 mg PO BID tablet 06/06/17 Ranitidine [Zantac -] 150 mg PO BID tablet 06/06/17 Tamsulosin HCl [Flomax -] 0.4 mg PO DAILY@0830 cap.sr 06/06/17 Tiotropium [place] [Spiriva] 1 puff IH DAILY inh 06/06/17 Magnesium l-Lactate [Mag-Tab Sr] 84 mg PO DAILY 07/24/17 Allergies Allergy/AdvReac Type Severity Reaction Status Date / Time Penicillins Allergy Intermediate Rash Verified 07/24/17 20:20 REVIEW OF SYSTEMS: unable to obtain PHYSICAL EXAM: GENERAL: Lethargic HEAD: Normal with no signs of trauma. EYES: sclera anicteric, conjunctiva clear. NECK: supple without lymphadenopathy, JVD, or masses. No carotid bruits. LUNGS: Clear to auscultation bilat anteriorly. No wheezes, and no crackles. No accessory muscle use. HEART: Irregular rhythm/rate. No murmurs ABDOMEN: Soft, nontender, not distended, no guarding, no rebound, no masses. UPPER EXTREMITIES: 2+ pulses, warm, well-perfused. No cyanosis. Cap refill <2 seconds. No peripheral edema. LOWER EXTREMITIES: warm. with doppler +1 pulse DP and PT b/l. +2 femoral/ popliteal b/l. Right foot with great toe dry ulcer to the tip and over distal phalanx. Mild erythema to the right toe, no foul odor or swelling to the foot. RLE healed scar right groin mid thigh to below the knee. NEUROLOGICAL: Cooperative but lethargic. Gait not observed. Moving extremities upon request. PSYCH: Cooperative. SKIN: Warm, dry. Vital Signs Temperature 98.0 F 07/30/17 14:25 Pulse Rate 72 07/30/17 14:25 Respiratory Rate 20 07/30/17 14:25 Blood Pressure 86/53 07/30/17 14:25 O2 Sat by Pulse Oximetry (%) 100 07/30/17 09:00 Lab Results WBC 8.2 K/mm3 (4.0-10.0) 07/30/17 06:45 RBC 2.90 M/mm3 (4.00-5.60) L 07/30/17 06:45 Hgb 9.5 GM/dL (11.7-16.9) L 07/30/17 06:45 Hct 28.8 % (35.4-49) L 07/30/17 06:45 MCV 99.4 fl (80-96) H 07/30/17 06:45 MCHC 32.9 g/dl (32.0-35.9) 07/30/17 06:45 RDW 18.0 % (11.9-15.9) H 07/30/17 06:45 Plt Count 162 K/MM3 (134-434) 07/30/17 06:45 Sodium 137 mmol/L (136-145) 07/30/17 06:45 Potassium 3.6 mmol/L (3.5-5.1) 07/30/17 06:45 Chloride 93 mmol/L (98-107) L 07/30/17 06:45 Carbon Dioxide 41 mmol/L (21-32) H 07/30/17 06:45 Anion Gap 3 (8-16) L 07/30/17 06:45 BUN 19 mg/dL (7-18) H 07/30/17 06:45 Creatinine 0.9 mg/dL (0.7-1.3) 07/30/17 06:45 Random Glucose 73 mg/dL (74-106) L 07/30/17 06:45 Calcium 8.2 mg/dL (8.5-10.1) L 07/30/17 06:45 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 Porras to follow patient and determine further management. Continue aspirin, heparin SQ. Oral anticoagulation with eliquis held last admission secondary to acute blood loss anemia/hematuria. Code(s): I73.9 - PERIPHERAL VASCULAR DISEASE, UNSPECIFIED Visit type - Case Type Case Type: ED Admission - Emergency Emergency Visit: Yes ED Registration Date: 07/25/17 Care time: The patient presented to the Emergency Department on the above date and was hospitalized for further evaluation of their emergent condition. - New patient This patient is new to me today: Yes Date on this admission: 07/30/17 <Lit Porras - Last Filed: 08/02/17 12:09> - Consultation REQUESTING PROVIDER: CONSULT REQUEST: We have been asked to surgically evaluate this patient for right toe pain. PCP:Jose Chaney MD HISTORY OF PRESENT ILLNESS: PMHx: PSHx: Home Medications Medication Instructions Recorded Atorvastatin Ca [Lipitor] 10 mg PO HS 12/12/15 Docusate Sodium [Colace -] 200 mg PO HS 12/12/15 Duloxetine HCl [Cymbalta] 60 mg PO HS 12/12/15 Fenofibrate Nanocrystallized 145 mg PO DAILY 12/12/15 [Tricor] Ferrous Sulfate [Slow Release Iron] 45 mg PO DAILY 12/12/15 Fluticasone Prop 0.05% Nasal 2 spray NS DAILY 12/12/15 [Flonase -] Levomefolate/B6/B12/Algal Oil 1 each PO BID 12/12/15 [Metanx Capsule] Levothyroxine [Synthroid -] 50 mcg PO DAILY 12/12/15 Potassium Chloride 20 meq PO DAILY 12/12/15 Sennosides [Senna Concentrate] 17.2 mg PO DAILY 12/12/15 Gabapentin 600 mg PO BID 05/08/17 Melatonin 3 mg PO DAILY 05/08/17 Acetaminophen [Tylenol .Regular 650 mg PO Q6H PRN #0 tablet 06/06/17 Strength -] Albuterol 2.5/Ipratropium 0.5 1 amp NEB Q4H PRN #0 amp 06/06/17 [Duoneb -] Furosemide [Lasix -] 40 mg PO DAILY tablet 06/06/17 Metoprolol Tartrate [Lopressor -] 25 mg PO BID tablet 06/06/17 Ranitidine [Zantac -] 150 mg PO BID tablet 06/06/17 Tamsulosin HCl [Flomax -] 0.4 mg PO DAILY@0830 cap.sr 06/06/17 Tiotropium [place] [Spiriva] 1 puff IH DAILY inh 06/06/17 Magnesium l-Lactate [Mag-Tab Sr] 84 mg PO DAILY 07/24/17 Allergies Allergy/AdvReac Type Severity Reaction Status Date / Time Penicillins Allergy Intermediate Rash Verified 07/24/17 20:20 REVIEW OF SYSTEMS: CONSTITUTIONAL: Absent: fever, chills, diaphoresis, generalized weakness, malaise, loss of appetite, weight change CARDIOVASCULAR: Absent: chest pain, syncope, palpitations, irregular heart rate, lightheadedness , peripheral edema RESPIRATORY: Absent: cough, shortness of breath, dyspnea with exertion, wheezing, stridor, hemoptysis GASTROINTESTINAL: Absent: abdominal pain, abdominal distension, nausea, vomiting, diarrhea, constipation, melena, hematochezia GENITOURINARY: Absent: dysuria, frequency, urgency, hesitancy, hematuria, flank pain, genital pain MUSCULOSKELETAL: Absent: myalgia, arthralgia, joint swelling, back pain, neck pain SKIN: Absent: rash, itching, pallor HEMATOLOGIC/IMMUNOLOGIC: Absent: easy bleeding, easy bruising, lymphadenopathy NEUROLOGIC: Absent: headache, focal weakness, paresthesias, dizziness, unsteady gait, seizure, mental status changes, bladder or bowel incontinence PSYCHIATRIC: Absent: anxiety, depression, suicidal or homicidal ideation, hallucinations. PHYSICAL EXAM: GENERAL: Awake, alert, and fully oriented, in no acute distress. HEAD: Normal with no signs of trauma. EYES: PERRL, sclera anicteric, conjunctiva clear. NECK: Normal ROM, supple without lymphadenopathy, JVD, or masses. LUNGS: Clear to auscultation bilat anteriorly. No wheezes, and no crackles. No accessory muscle use. HEART: Regular rate and rhythm. No murmurs ABDOMEN: Soft, nontender, not distended, normoactive bowel sounds, no guarding, no rebound, no masses. No organomegaly. MUSCULOSKELETAL: Normal ROM at all joints. No bony deformities or tenderness. No CVA tenderness. UPPER EXTREMITIES: 2+ pulses, warm, well-perfused. No cyanosis. Cap refill <2 seconds. No peripheral edema. LOWER EXTREMITIES: 2+ pulses, warm, well-perfused. No calf tenderness. No peripheral edema. NEUROLOGICAL: Normal speech, gait not observed. PSYCH: Cooperative. Good eye contact. Appropriate mood and affect. SKIN: Warm, dry, normal turgor, no rashes or lesions noted. Vital Signs Temperature 97.3 F L 08/01/17 18:24 Pulse Rate 90 08/01/17 18:24 Respiratory Rate 20 08/01/17 18:24 Blood Pressure 109/50 08/01/17 18:24 O2 Sat by Pulse Oximetry (%) 88 L 08/01/17 09:00 Lab Results WBC 23.5 K/mm3 (4.0-10.0) H D 08/01/17 06:00 RBC 2.90 M/mm3 (4.00-5.60) L 08/01/17 06:00 Hgb 9.2 GM/dL (11.7-16.9) L 08/01/17 06:00 Hct 28.5 % (35.4-49) L 08/01/17 06:00 MCV 98.5 fl (80-96) H 08/01/17 06:00 MCHC 32.4 g/dl (32.0-35.9) 08/01/17 06:00 RDW 18.3 % (11.9-15.9) H 08/01/17 06:00 Plt Count 204 K/MM3 (134-434) 08/01/17 06:00 Sodium 138 mmol/L (136-145) 08/01/17 06:00 Potassium 4.4 mmol/L (3.5-5.1) 08/01/17 06:00 Chloride 92 mmol/L (98-107) L 08/01/17 06:00 Carbon Dioxide 39 mmol/L (21-32) H 08/01/17 06:00 Anion Gap 7 (8-16) L 08/01/17 06:00 BUN 44 mg/dL (7-18) H D 08/01/17 06:00 Creatinine 2.1 mg/dL (0.7-1.3) H D 08/01/17 06:00 Random Glucose 115 mg/dL (74-106) H 08/01/17 06:00 Calcium 8.8 mg/dL (8.5-10.1) 08/01/17 06:00 History reviewed, patient examined. History of right fem-PT bypass. His last Dulex in office 1 year ago showed a patent bypass. He is now admitted with multiple problems and complained of pain in right 1st toe and a small wound. On exam, he is not arousable. The right foot is warm. A small eschar on the dorsal right 1st toe is clean and not infected. Topical antibiotic to the eschar is best management. He does not apear to be a candidate for vascular intervention if needed at this time.
[2017-07-30] MEDS: DULoxetine HCL 30 MG CAPSULE.DR (FP) PO SCH (21:42)
[2017-07-30] MEDS: DOCUSATE SODIUM 100 MG CAPSULE (FP) PO SCH (21:42)
[2017-07-30] MEDS: ATORVASTATIN CA 10 MG TABLET (FP) PO SCH (21:42)
[2017-07-30] MEDS: MELATONIN 1 MG TABLET PO SCH (21:43)
[2017-07-31] MEDS ORDERED: PT OWN MED DRAWER 7, Y5N ONE ×3 (06:00→12:58)
[2017-07-31] MEDS: LEVOTHYROXINE NA 50 MCG TABLET (FP) PO SCH (06:35)
[2017-07-31 08:02] LABS: BASOPHIL 0.7 % (0-2.0); EOSINOPHIL 1.5 % (0-4.5); MCH 31.8 pg (25.7-33.7); MCHC 32.4 g/dl (32.0-35.9); MEAN CELL VOLUME 98.3 fl (80-96); MEAN PLT VOLUME 8.2 fl (7.5-11.1); NEUTROPHILS 83.6 % (42.8-82.8); PLATELET COUNT 183 K/MM3 (134-434); RDW 17.9 % (11.9-15.9); WHITE BLOOD COUNT 16.2 K/mm3 (4.0-10.0)
[2017-07-31 08:45] LABS: ANION GAP 5 (8-16); CALCIUM 9.1 mg/dL (8.5-10.1); CO2 43 mmol/L (21-32); CREATININE 0.9 mg/dL (0.7-1.3); GLUCOSE,RANDOM 117 mg/dL (74-106); MAGNESIUM 1.9 mg/dL (1.8-2.4)
[2017-07-31] MEDS: ALBUTEROL SO4 0.083% IH SOL 2.5 MG/3 ML VIAL.NEB. NEB PRN (10:07)
[2017-07-31] MEDS: RANITIDINE HCL 150 MG TABLET (FP) PO SCH ×2 (10:46→22:19)
[2017-07-31] MEDS: ERTAPENEM SODIUM 1 GM in SODIUM CHLORIDE 50 ML IVPB SCH (10:46)
[2017-07-31] MEDS: POTASSIUM CHLORIDE TABS 20 MEQ TABLET.ER (FP) PO SCH (10:46)
[2017-07-31] MEDS: METOPROLOL TARTRATE 25 MG TABLET (FP) PO SCH ×2 (10:46→22:23)
[2017-07-31] MEDS: TAMSULOSIN HCL 0.4 MG CAP.ER.24H (FP) PO SCH (10:46)
[2017-07-31] MEDS: SENNOSIDES 8.6MG TABLET (FP) PO SCH (10:46)
[2017-07-31] MEDS: GABAPENTIN 300 MG CAPSULE (FP) PO SCH ×2 (10:46→22:16)
[2017-07-31] MEDS: HEPARIN NA (PORCINE) 5,000 UNITS/ML 1ML VIAL SQ SCH ×2 (10:46→22:17)
[2017-07-31] MEDS: FERROUS SO4 325 MG TABLET (FP) PO SCH (10:46)
[2017-07-31] MEDS: ASPIRIN 81 MG CHEWABLE TABLETS PO SCH (10:47)
[2017-07-31] MEDS: FUROSEMIDE 40 MG/4 ML INJECTABLE VIAL IVPUSH SCH (10:47)
[2017-07-31] MEDS: TIOTROPIUM BROMIDE 18 MCG/INH (DEVICE W/ 5 CAPSULES) IH SCH (10:47)
[2017-07-31] MEDS: FLUTICASONE PROP 0.05% 16 GM NASAL SPRAY NS SCH (10:47)
[2017-07-31] MEDS: FENOFIBRIC ACID 135 MG CAP PO SCH (10:48)
--- NOTE | 2017-07-31 11:46 | PN ---
Progress Note (short form) - Note Progress Note: Chief Complaint: chf History of Present Illness: very sleepy today no leg swelling, palpit, cp dizzy sob Current Medications Generic Name Dose Route Start Last Admin Trade Name Frealan PRN Reason Stop Dose Admin Albuterol Sulfate 1 amp 07/27/17 14:06 07/31/17 10:07 Ventolin 0.083% Nebulizer Soln - NEB 1 amp Q4H PRN Administration SHORT OF BREATH/WHEEZING Aspirin 81 mg 07/26/17 06:15 07/31/17 10:47 Asa - PO 81 mg DAILY MICHAEL Administration Atorvastatin Calcium 10 mg 07/25/17 22:00 07/30/17 21:42 Lipitor - PO 10 mg HS MICHAEL Administration Docusate Sodium 200 mg 07/25/17 22:00 07/30/17 21:42 Colace - PO 200 mg HS MICHAEL Administration Duloxetine HCl 60 mg 07/25/17 22:00 07/30/17 21:42 Cymbalta - PO 60 mg HS MICHAEL Administration Fenofibric Acid 135 mg 07/25/17 10:00 07/31/17 10:48 Trilipix - PO 135 mg DAILY MICHAEL Administration Ferrous Sulfate 325 mg 07/25/17 10:00 07/31/17 10:46 Feosol - PO 325 mg DAILY MICHAEL Administration Fluticasone Propionate 2 spray 07/25/17 10:00 07/31/17 10:47 Flonase - NS 2 spray DAILY MICHAEL Administration Furosemide 80 mg 07/28/17 11:10 07/31/17 10:47 Lasix Injection - IVPUSH 80 mg DAILY MICHAEL Administration Gabapentin 600 mg 07/25/17 10:00 07/31/17 10:46 Neurontin - PO 600 mg BID MICHAEL Administration Heparin Sodium (Porcine) 5,000 unit 07/25/17 09:31 07/31/17 10:46 Heparin - SQ 5,000 unit BID MICHAEL Administration Ertapenem 1 gm/ Sodium 50 mls @ 50 mls/hr 07/26/17 17:00 07/31/17 10:46 Chloride IVPB 50 mls/hr DAILY MICHAEL Administration Protocol Levothyroxine Sodium 50 mcg 07/25/17 07:00 07/31/17 06:35 Synthroid - PO 50 mcg DAILY@0700 MICHAEL Administration Melatonin 3 mg 07/25/17 22:00 07/30/17 21:43 Melatonin PO 3 mg HS MICHAEL Administration Metoprolol Tartrate 25 mg 07/26/17 10:00 07/31/17 10:46 Lopressor - PO 25 mg BID MICHAEL Administration Potassium Chloride 20 meq 07/25/17 10:00 07/31/17 10:46 K-Dur - PO 20 meq DAILY MICHAEL Administration Ranitidine HCl 150 mg 07/25/17 10:00 07/31/17 10:46 Zantac - PO 150 mg BID MICHAEL Administration Senna 2 tab 07/25/17 10:00 07/31/17 10:46 Senna - PO 2 tab DAILY MICHAEL Administration Tamsulosin HCl 0.4 mg 07/25/17 08:30 07/31/17 10:46 Flomax - PO 0.4 mg DAILY@0830 MICHAEL Administration Tiotropium [place] 1 puff 07/25/17 10:00 07/31/17 10:47 Spiriva - IH 1 inh DAILY MICHAEL Administration - Objective Vital Signs: Vital Signs Period Temp Pulse Resp BP Sys/Mitchell Pulse Ox Last 24 Hr 97.4 F-99.4 F 70-115 18-20 86-115/47-63 95-100 Constitutional: Yes: Well Nourished, No Distress, Calm Cardiovascular: Yes: Pulse Irregular, JVD ((L neck)), S1, S2. No: Gallop, Murmur Respiratory: Yes: Regular, CTA Bilaterally (not taking deep breaths). No: Accessory Muscle Use, Rales, Wheezes Extremities: No: Cold Edema: No Neurological: Yes: Lethargy. No: Seizure Psychiatric: No: Agitated Labs: CBC, BMP 07/31/17 06:50 07/31/17 06:50 ecg : afib, with pvc's/aberrancy. lad, rbb--no change vs 05/19 cxr: minimal improvement in congestive changes, no effusions cxr 07/29: no change echo 05/2017: mild, global LV hypo; nl RV; mild MR; mild ao root dilation (no RVSP) mibi 10/2016: no ischemia a/p: sob/acute diastolic hf exacerbation: - BNP 19K (prior range 18K-27K), cxr with residual congestive changes - receiving lasix 40 iv qd - 07/27: lytes/renal fxn stable. wt trend up 8 lb in 2d, ? accurate. - no more sob but suspect marked JVD still on exam, and lung exam remains wet - 07/28: wt up further, JVD persists. only 1000 cc UOP yest (says he's collecting it in urinal--accurate?). bun and creat improved today. - on review of MAR, no pm dose lasix given yest (i was not consulted)--so still received 40 iv qd. will change to lasix 80 iv qd. - 07/29-: wt down, creat stable. cont lasix 80 iv qd. afib: - AC had been held on last admit for hematuria and anemia/thrombocytopenia. - cont ASA for now, per prior plan - rate controlled, cont low dose bb cad s/p remote pci: -stable -no signs acs: troponins flat and no ecg changes -cont ASA, statin, bb. has been off acei due to low bp tendencies htn: -stable, cont current meds. hld: -cont home statin,
--- NOTE | 2017-07-31 12:27 | PN ---
Progress Note, Physician Chief Complaint: Mr Rivas is without complaint. Denies cp, sob, n/v. says patient is more lethargic today with anorexia. Developing productive cough. - Current Medication List Current Medications: Active Medications Albuterol Sulfate (Ventolin 0.083% Nebulizer Soln -) 1 amp NEB Q4H PRN PRN Reason: SHORT OF BREATH/WHEEZING Last Admin: 07/31/17 10:07 Dose: 1 amp Aspirin (Asa -) 81 mg PO DAILY [facility] Last Admin: 07/31/17 10:47 Dose: 81 mg Atorvastatin Calcium (Lipitor -) 10 mg PO HS [facility] Last Admin: 07/30/17 21:42 Dose: 10 mg Docusate Sodium (Colace -) 200 mg PO HS [facility] Last Admin: 07/30/17 21:42 Dose: 200 mg Duloxetine HCl (Cymbalta -) 60 mg PO HS [facility] Last Admin: 07/30/17 21:42 Dose: 60 mg Fenofibric Acid (Trilipix -) 135 mg PO DAILY [facility] Last Admin: 07/31/17 10:48 Dose: 135 mg Ferrous Sulfate (Feosol -) 325 mg PO DAILY [facility] Last Admin: 07/31/17 10:46 Dose: 325 mg Fluticasone Propionate (Flonase -) 2 spray NS DAILY [facility] Last Admin: 07/31/17 10:47 Dose: 2 spray Furosemide (Lasix Injection -) 80 mg IVPUSH DAILY [facility] Last Admin: 07/31/17 10:47 Dose: 80 mg Gabapentin (Neurontin -) 600 mg PO BID [facility] Last Admin: 07/31/17 10:46 Dose: 600 mg Heparin Sodium (Porcine) (Heparin -) 5,000 unit SQ BID [facility] Last Admin: 07/31/17 10:46 Dose: 5,000 unit Ertapenem 1 gm/ Sodium (Chloride) 50 mls @ 50 mls/hr IVPB DAILY [facility] PRN Reason: Protocol Last Admin: 07/31/17 10:46 Dose: 50 mls/hr Levothyroxine Sodium (Synthroid -) 50 mcg PO DAILY@0700 [facility] Last Admin: 07/31/17 06:35 Dose: 50 mcg Melatonin (Melatonin) 3 mg PO HS [facility] Last Admin: 07/30/17 21:43 Dose: 3 mg Metoprolol Tartrate (Lopressor -) 25 mg PO BID [facility] Last Admin: 11/29/17 10:46 Dose: 25 mg Potassium Chloride (K-Dur -) 20 meq PO DAILY [facility] Last Admin: 07/31/17 10:46 Dose: 20 meq Ranitidine HCl (Zantac -) 150 mg PO BID [facility] Last Admin: 07/31/17 10:46 Dose: 150 mg Senna (Senna -) 2 tab PO DAILY [facility] Last Admin: 07/31/17 10:46 Dose: 2 tab Tamsulosin HCl (Flomax -) 0.4 mg PO DAILY@0830 [facility] Last Admin: 07/31/17 10:46 Dose: 0.4 mg Tiotropium [place] (Spiriva -) 1 puff IH DAILY [facility] Last Admin: 07/31/17 10:47 Dose: 1 inh - Objective Vital Signs: Vital Signs Temperature 37.4 C 07/31/17 07:33 Pulse Rate 80 07/31/17 10:07 Respiratory Rate 20 07/31/17 07:33 Blood Pressure 104/63 07/31/17 07:33 O2 Sat by Pulse Oximetry (%) 95 07/31/17 10:07 Constitutional: Yes: Well Nourished, No Distress, Calm Cardiovascular: Yes: Regular Rate and Rhythm. No: Gallop, Murmur, Rub Respiratory: Yes: Regular, Cough (productive with very dark green sputum), Rhonchi. No: CTA Bilaterally, Rales, Wheezes Gastrointestinal: Yes: Normal Bowel Sounds, Soft. No: Distention, Tenderness Extremities: Yes: WNL Edema: No Labs: CBC, BMP 07/31/17 06:50 07/31/17 06:50 Problem List - Problems (1) Acute congestive heart failure Code(s): I50.9 - HEART FAILURE, UNSPECIFIED Qualifiers: Congestive heart failure type: systolic Qualified Code(s): I50.21 - Acute systolic (congestive) heart failure (2) Osteomyelitis Code(s): M86.9 - OSTEOMYELITIS, UNSPECIFIED Qualifiers: Osteomyelitis location: foot Laterality: right (3) Acute respiratory failure Code(s): J96.00 - ACUTE RESPIRATORY FAILURE, UNSP W HYPOXIA OR HYPERCAPNIA Qualifiers: Respiratory failure complication: hypoxia and hypercapnia Qualified Code(s) : J96.01 - Acute respiratory failure with hypoxia; J96.02 - Acute respiratory failure with hypercapnia; J96.02 - Acute respiratory failure with hypercapnia; J96.02 - Acute respiratory failure with hypercapnia (4) Alkalosis, metabolic Code(s): E87.3 - ALKALOSIS (5) Atrial fibrillation Code(s): I48.91 - UNSPECIFIED ATRIAL FIBRILLATION Qualifiers: Atrial fibrillation type: chronic Qualified Code(s): I48.2 - Chronic atrial fibrillation (6) CAD (coronary artery disease) Code(s): I25.10 - ATHSCL HEART DISEASE OF [place] CORONARY ARTERY W/O ANG PCTRS (7) HTN (hypertension) Code(s): I10 - ESSENTIAL (PRIMARY) HYPERTENSION (8) Hyperlipemia Code(s): E78.5 - HYPERLIPIDEMIA, UNSPECIFIED (9) PVD (peripheral vascular disease) Code(s): I73.9 - PERIPHERAL VASCULAR DISEASE, UNSPECIFIED Assessment/Plan (1) Acute congestive heart failure Assessment/Plan: -appreciate cardiology assistance -continue IV lasix Code(s): I50.9 - HEART FAILURE, UNSPECIFIED Qualifiers: Congestive heart failure type: systolic Qualified Code(s): I50.21 - Acute systolic (congestive) heart failure (2) Osteomyelitis Assessment/Plan: -MRI shows very early signs of osteomyelitis -appreciate vascular surgery evaluation -await Dr Porras's final recommendations -continue ertapenem Code(s): M86.9 - OSTEOMYELITIS, UNSPECIFIED Qualifiers: Osteomyelitis location: foot Laterality: right (3) Acute respiratory failure Assessment/Plan: -much improved -continue lasix, consider change to oral lasix per cardiology -continue oxygen support Code(s): J96.00 - ACUTE RESPIRATORY FAILURE, UNSP W HYPOXIA OR HYPERCAPNIA Qualifiers: Respiratory failure complication: hypoxia and hypercapnia Qualified Code(s) : J96.01 - Acute respiratory failure with hypoxia (4) Alkalosis, metabolic Assessment/Plan: -secondary to diuresis -monitor Code(s): E87.3 - ALKALOSIS (5) Atrial fibrillation Assessment/Plan: -rate controlled -not an anticoagulation candidate secondary to suspected GI/urinary bleed last admission and inability to do interventions -continue aspirin Code(s): I48.91 - UNSPECIFIED ATRIAL FIBRILLATION Qualifiers: Atrial fibrillation type: chronic Qualified Code(s): I48.2 - Chronic atrial fibrillation (6) CAD (coronary artery disease) Assessment/Plan: -quiescent -continue medical management -cardiology following Code(s): I25.10 - ATHSCL HEART DISEASE OF [place] CORONARY ARTERY W/O ANG PCTRS (7) HTN (hypertension) Assessment/Plan: -controlled Code(s): I10 - ESSENTIAL (PRIMARY) HYPERTENSION (8) Hyperlipemia Assessment/Plan: -continue statin Code(s): E78.5 - HYPERLIPIDEMIA, UNSPECIFIED (9) PVD (peripheral vascular disease) Assessment/Plan: -cannot anticoagulate secondary to history of GI/urinary bleed -vascular surgery following Code(s): I73.9 - PERIPHERAL VASCULAR DISEASE, UNSPECIFIED (10) Pneumonia -suspect HCAP -with leukocytosis and dark green sputum -continue ertapenem -ID following
--- NOTE | 2017-07-31 14:04 | PN ---
Progress Note (short form) - Note Progress Note: PULMONARY Remains somnolent but arousable. Denies shortness of breath or chest pain. Last Vital Signs Temp Pulse Resp BP Pulse Ox 99.4 F 80 20 104/63 95 07/31/17 07:33 07/31/17 10:07 07/31/17 07:33 07/31/17 07:33 07/31/17 10:07 Gen: somnolent but arousable Heart: RRR Lung: decreased breath sounds at the bases Abd: soft, nontender Ext: no edema CBC, BMP 07/31/17 06:50 07/31/17 06:50 Active Medications Albuterol Sulfate (Ventolin 0.083% Nebulizer Soln -) 1 amp NEB Q4H PRN PRN Reason: SHORT OF BREATH/WHEEZING Last Admin: 07/31/17 10:07 Dose: 1 amp Aspirin (Asa -) 81 mg PO DAILY [facility] Last Admin: 07/31/17 10:47 Dose: 81 mg Atorvastatin Calcium (Lipitor -) 10 mg PO HS [facility] Last Admin: 07/30/17 21:42 Dose: 10 mg Docusate Sodium (Colace -) 200 mg PO HS [facility] Last Admin: 07/30/17 21:42 Dose: 200 mg Duloxetine HCl (Cymbalta -) 60 mg PO HS [facility] Last Admin: 07/30/17 21:42 Dose: 60 mg Fenofibric Acid (Trilipix -) 135 mg PO DAILY [facility] Last Admin: 07/31/17 10:48 Dose: 135 mg Ferrous Sulfate (Feosol -) 325 mg PO DAILY [facility] Last Admin: 07/31/17 10:46 Dose: 325 mg Fluticasone Propionate (Flonase -) 2 spray NS DAILY [facility] Last Admin: 07/31/17 10:47 Dose: 2 spray Furosemide (Lasix Injection -) 80 mg IVPUSH DAILY [facility] Last Admin: 07/31/17 10:47 Dose: 80 mg Gabapentin (Neurontin -) 600 mg PO BID [facility] Last Admin: 07/31/17 10:46 Dose: 600 mg Heparin Sodium (Porcine) (Heparin -) 5,000 unit SQ BID [facility] Last Admin: 07/31/17 10:46 Dose: 5,000 unit Ertapenem 1 gm/ Sodium (Chloride) 50 mls @ 50 mls/hr IVPB DAILY [facility] PRN Reason: Protocol Last Admin: 07/31/17 10:46 Dose: 50 mls/hr Levothyroxine Sodium (Synthroid -) 50 mcg PO DAILY@0700 [facility] Last Admin: 07/31/17 06:35 Dose: 50 mcg Melatonin (Melatonin) 3 mg PO HS [facility] Last Admin: 07/30/17 21:43 Dose: 3 mg Metoprolol Tartrate (Lopressor -) 25 mg PO BID [facility] Last Admin: 07/31/17 10:46 Dose: 25 mg Potassium Chloride (K-Dur -) 20 meq PO DAILY [facility] Last Admin: 07/31/17 10:46 Dose: 20 meq Ranitidine HCl (Zantac -) 150 mg PO BID [facility] Last Admin: 07/31/17 10:46 Dose: 150 mg Senna (Senna -) 2 tab PO DAILY [facility] Last Admin: 07/31/17 10:46 Dose: 2 tab Tamsulosin HCl (Flomax -) 0.4 mg PO DAILY@0830 [facility] Last Admin: 07/31/17 10:46 Dose: 0.4 mg Tiotropium [place] (Spiriva -) 1 puff IH DAILY [facility] Last Admin: 07/31/17 10:47 Dose: 1 inh A/P Acute on Chronic Diastolic Heart Failure Atrial Fibrillation CAD HTN Hypercholesterolemia - continue lasix - monitor urine output, creatinine - daily weights, I/Os - inhaled bronchodilators as needed - aspiration precautions - DVT prophylaxis
[2017-07-31] MEDS: guaiFENesin 600 MG TABLET.ER (FP) PO SCH ×2 (15:35→22:16)
--- NOTE | 2017-07-31 18:04 | PN ---
Progress Note, Physician Chief Complaint: Infectious Disease f/u: History of Present Illness: Events noted. Patient without acute respiratory distress but noted to have productive cough. Remains afebrile but wbc count elevated today. No other specific complaints. - Current Medication List Current Medications: Active Medications Albuterol Sulfate (Ventolin 0.083% Nebulizer Soln -) 1 amp NEB Q4H PRN PRN Reason: SHORT OF BREATH/WHEEZING Last Admin: 07/31/17 10:07 Dose: 1 amp Aspirin (Asa -) 81 mg PO DAILY [facility] Last Admin: 07/31/17 10:47 Dose: 81 mg Atorvastatin Calcium (Lipitor -) 10 mg PO HS [facility] Last Admin: 07/30/17 21:42 Dose: 10 mg Docusate Sodium (Colace -) 200 mg PO HS [facility] Last Admin: 07/30/17 21:42 Dose: 200 mg Duloxetine HCl (Cymbalta -) 60 mg PO HS [facility] Last Admin: 07/30/17 21:42 Dose: 60 mg Fenofibric Acid (Trilipix -) 135 mg PO DAILY [facility] Last Admin: 07/31/17 10:48 Dose: 135 mg Ferrous Sulfate (Feosol -) 325 mg PO DAILY [facility] Last Admin: 07/31/17 10:46 Dose: 325 mg Fluticasone Propionate (Flonase -) 2 spray NS DAILY [facility] Last Admin: 07/31/17 10:47 Dose: 2 spray Furosemide (Lasix Injection -) 80 mg IVPUSH DAILY [facility] Last Admin: 07/31/17 10:47 Dose: 80 mg Gabapentin (Neurontin -) 600 mg PO BID [facility] Last Admin: 07/31/17 10:46 Dose: 600 mg Guaifenesin (Mucinex -) 1,200 mg PO BID [facility] Last Admin: 07/31/17 15:35 Dose: 1,200 mg Heparin Sodium (Porcine) (Heparin -) 5,000 unit SQ BID [facility] Last Admin: 07/31/17 10:46 Dose: 5,000 unit Ertapenem 1 gm/ Sodium (Chloride) 50 mls @ 50 mls/hr IVPB DAILY [facility] PRN Reason: Protocol Last Admin: 07/31/17 10:46 Dose: 50 mls/hr Levothyroxine Sodium (Synthroid -) 50 mcg PO DAILY@0700 [facility] Last Admin: 07/31/17 06:35 Dose: 50 mcg Melatonin (Melatonin) 3 mg PO HS [facility] Last Admin: 07/30/17 21:43 Dose: 3 mg Metoprolol Tartrate (Lopressor -) 25 mg PO BID [facility] Last Admin: 07/31/17 10:46 Dose: 25 mg Potassium Chloride (K-Dur -) 20 meq PO DAILY [facility] Last Admin: 07/31/17 10:46 Dose: 20 meq Ranitidine HCl (Zantac -) 150 mg PO BID [facility] Last Admin: 07/31/17 10:46 Dose: 150 mg Senna (Senna -) 2 tab PO DAILY [facility] Last Admin: 07/31/17 10:46 Dose: 2 tab Tamsulosin HCl (Flomax -) 0.4 mg PO DAILY@0830 [facility] Last Admin: 07/31/17 10:46 Dose: 0.4 mg Tiotropium [place] (Spiriva -) 1 puff IH DAILY [facility] Last Admin: 07/31/17 10:47 Dose: 1 inh - Objective Vital Signs: Vital Signs Temperature 98.6 F 07/31/17 17:23 Pulse Rate 119 H 07/31/17 17:23 Respiratory Rate 18 07/31/17 17:23 Blood Pressure 112/55 07/31/17 17:23 O2 Sat by Pulse Oximetry (%) 95 07/31/17 10:07 Constitutional: Yes: No Distress Neck: Yes: Supple Cardiovascular: Yes: Tachycardia Respiratory: Yes: Rhonchi (scattered) Gastrointestinal: Yes: Normal Bowel Sounds, Soft Extremities: Yes: Erythema (Rt 1st toe chronic erythema without warmth, dried ulcerations, no tenderness) Edema: No Neurological: Yes: Lethargy Labs: CBC, BMP 07/31/17 06:50 07/31/17 06:50 - ....Imaging Chest X-ray: Report Reviewed Problem List - Problems (1) Acute congestive heart failure Code(s): I50.9 - HEART FAILURE, UNSPECIFIED Qualifiers: Congestive heart failure type: systolic Qualified Code(s): I50.21 - Acute systolic (congestive) heart failure (2) CAD (coronary artery disease) Code(s): I25.10 - ATHSCL HEART DISEASE OF [place] CORONARY ARTERY W/O ANG PCTRS (3) CHF (congestive heart failure) Code(s): I50.9 - HEART FAILURE, UNSPECIFIED Qualifiers: Congestive heart failure type: unspecified congestive heart failure type Congestive heart failure chronicity: chronic Qualified Code(s): I50.9 - Heart failure, unspecified (4) Cellulitis Code(s): L03.90 - CELLULITIS, UNSPECIFIED (5) HTN (hypertension) Code(s): I10 - ESSENTIAL (PRIMARY) HYPERTENSION (6) Leukocytosis Code(s): D72.829 - ELEVATED WHITE BLOOD CELL COUNT, UNSPECIFIED Assessment/Plan Pt weaker today with productive cough, leukocytosis Rt 1st toe vascular changes Possible OM -- d/c Ertapenem -- start meropenem and vancomycin empirically -- repeat cbc, sputum culture if possible -- if febrile repeat blood cultures -- continue monitor vitals
[2017-07-31] MEDS ORDERED: ACETAMINOPHEN 650 MG SUPP.RECT PR ONE (21:50)
[2017-07-31] MEDS: VANCOMYCIN 1,000 MG in DEXTROSE 5%-WATER - 250 ML IVPB SCH (22:15)
[2017-07-31] MEDS: DULoxetine HCL 30 MG CAPSULE.DR (FP) PO SCH (22:16)
[2017-07-31] MEDS: DOCUSATE SODIUM 100 MG CAPSULE (FP) PO SCH (22:16)
[2017-07-31] MEDS: ATORVASTATIN CA 10 MG TABLET (FP) PO SCH (22:16)
[2017-07-31] MEDS: MELATONIN 1 MG TABLET PO SCH (22:18)
[2017-08-01] MEDS: ALBUTEROL SO4 0.083% IH SOL 2.5 MG/3 ML VIAL.NEB. NEB PRN
[2017-08-01] MEDS: MEROPENEM 1 GM PUSH 1 GM/20 ML DISP.SYRIN IVPUSH SCH ×3 (02:18→17:41)
[2017-08-01] MEDS: LEVOTHYROXINE NA 50 MCG TABLET (FP) PO SCH (06:06)
[2017-08-01 08:09] LABS: MCH 31.9 pg (25.7-33.7); MCHC 32.4 g/dl (32.0-35.9); MEAN CELL VOLUME 98.5 fl (80-96); MEAN PLT VOLUME 8.9 fl (7.5-11.1); PLATELET COUNT 204 K/MM3 (134-434); RDW 18.3 % (11.9-15.9); WHITE BLOOD COUNT 23.5 K/mm3 (4.0-10.0)
[2017-08-01 08:39] LABS: ANION GAP 7 (8-16); CALCIUM 8.8 mg/dL (8.5-10.1); CO2 39 mmol/L (21-32); CREATININE 2.1 mg/dL (0.7-1.3); GLUCOSE,RANDOM 115 mg/dL (74-106); PHOSPHOROUS 3.5 mg/dL (2.5-4.9)
[2017-08-01 09:36] LABS: TOTAL CELLS COUNTED 100
[2017-08-01 09:37] LABS: PLATELET ESTIMATE ADEQUATE
[2017-08-01] MEDS ORDERED: SODIUM CHLORIDE 250 ML IV STA (10:24)
[2017-08-01] MEDS ORDERED: PT OWN MED DRAWER 7, Y5N ONE (10:27)
[2017-08-01] MEDS: SENNOSIDES 8.6MG TABLET (FP) PO SCH (10:28)
[2017-08-01] MEDS: TAMSULOSIN HCL 0.4 MG CAP.ER.24H (FP) PO SCH (10:28)
[2017-08-01] MEDS: METOPROLOL TARTRATE 25 MG TABLET (FP) PO SCH ×2 (10:28→10:42)
[2017-08-01] MEDS: POTASSIUM CHLORIDE TABS 20 MEQ TABLET.ER (FP) PO SCH (10:29)
[2017-08-01] MEDS: guaiFENesin 600 MG TABLET.ER (FP) PO SCH (10:29)
[2017-08-01] MEDS: FLUTICASONE PROP 0.05% 16 GM NASAL SPRAY NS SCH (10:29)
[2017-08-01] MEDS: HEPARIN NA (PORCINE) 5,000 UNITS/ML 1ML VIAL SQ SCH (10:29)
[2017-08-01] MEDS: ASPIRIN 81 MG CHEWABLE TABLETS PO SCH (10:29)
[2017-08-01] MEDS: RANITIDINE HCL 150 MG TABLET (FP) PO SCH (10:29)
[2017-08-01] MEDS: FERROUS SO4 325 MG TABLET (FP) PO SCH (10:29)
[2017-08-01] MEDS: VANCOMYCIN 1,000 MG in DEXTROSE 5%-WATER - 250 ML IVPB SCH (10:30)
[2017-08-01] MEDS ORDERED: SODIUM CHLORIDE 1,000 ML IV SCH (10:30)
[2017-08-01] MEDS: FENOFIBRIC ACID 135 MG CAP PO SCH (10:31)
[2017-08-01] MEDS: TIOTROPIUM BROMIDE 18 MCG/INH (DEVICE W/ 5 CAPSULES) IH SCH (10:31)
[2017-08-01] MEDS: GABAPENTIN 300 MG CAPSULE (FP) PO SCH (10:35)
--- NOTE | 2017-08-01 10:47 | PN ---
Progress Note, Physician Chief Complaint: Mr Rivas is very lethargic today but says he feels fine. Says his breathing is ok. Denies cp or n/v. - Current Medication List Current Medications: Active Medications Albuterol Sulfate (Ventolin 0.083% Nebulizer Soln -) 1 amp NEB Q4H PRN PRN Reason: SHORT OF BREATH/WHEEZING Last Admin: 08/01/17 00:00 Dose: 1 amp Aspirin (Asa -) 81 mg PO DAILY [facility] Last Admin: 08/01/17 10:29 Dose: 81 mg Atorvastatin Calcium (Lipitor -) 10 mg PO HS [facility] Last Admin: 07/31/17 22:16 Dose: 10 mg Docusate Sodium (Colace -) 200 mg PO HS [facility] Last Admin: 07/31/17 22:16 Dose: 200 mg Duloxetine HCl (Cymbalta -) 60 mg PO HS [facility] Last Admin: 07/31/17 22:16 Dose: 60 mg Fenofibric Acid (Trilipix -) 135 mg PO DAILY [facility] Last Admin: 08/01/17 10:31 Dose: 135 mg Ferrous Sulfate (Feosol -) 325 mg PO DAILY [facility] Last Admin: 08/01/17 10:29 Dose: 325 mg Fluticasone Propionate (Flonase -) 2 spray NS DAILY [facility] Last Admin: 08/01/17 10:29 Dose: 2 spray Gabapentin (Neurontin -) 600 mg PO BID [facility] Last Admin: 08/01/17 10:35 Dose: 600 mg Guaifenesin (Mucinex -) 1,200 mg PO BID [facility] Last Admin: 08/01/17 10:29 Dose: 1,200 mg Heparin Sodium (Porcine) (Heparin -) 5,000 unit SQ BID [facility] Last Admin: 08/01/17 10:29 Dose: 5,000 unit Meropenem (Merrem (Restricted To Id) -) 1 gm in 20 mls @ 240 mls/hr IVPUSH Q8H- IV [facility] PRN Reason: Protocol Last Admin: 08/01/17 02:18 Dose: 240 mls/hr Vancomycin HCl 1,000 mg/ (Dextrose) 250 mls @ 166.667 mls/hr IVPB DAILY [facility] PRN Reason: Protocol Last Admin: 08/01/17 10:30 Dose: 166.667 mls/hr Sodium Chloride (Normal Saline -) 250 mls @ 500 mls/hr IV ASDIR [facility] Stop: 08/01/17 10:53 Sodium Chloride (Normal Saline -) 1,000 mls @ 50 mls/hr IV ASDIR [facility] Stop: 08/02/17 10:25 Levothyroxine Sodium (Synthroid -) 50 mcg PO DAILY@0700 [facility] Last Admin: 08/01/17 06:06 Dose: 50 mcg Melatonin (Melatonin) 3 mg PO HS [facility] Last Admin: 07/31/17 22:18 Dose: 3 mg Metoprolol Tartrate (Lopressor -) 25 mg PO BID [facility] Last Admin: 07/31/17 22:23 Dose: 25 mg Potassium Chloride (K-Dur -) 20 meq PO DAILY [facility] Last Admin: 08/01/17 10:29 Dose: 20 meq Ranitidine HCl (Zantac -) 150 mg PO BID [facility] Last Admin: 08/01/17 10:29 Dose: 150 mg Senna (Senna -) 2 tab PO DAILY [facility] Last Admin: 08/01/17 10:28 Dose: 2 tab Tamsulosin HCl (Flomax -) 0.4 mg PO DAILY@0830 [facility] Last Admin: 08/01/17 10:28 Dose: 0.4 mg Tiotropium [place] (Spiriva -) 1 puff IH DAILY [facility] Last Admin: 08/01/17 10:31 Dose: Not Given - Objective Vital Signs: Vital Signs Temperature 37.4 C 08/01/17 06:00 Pulse Rate 93 H 08/01/17 06:00 Respiratory Rate 20 08/01/17 06:00 Blood Pressure 93/51 08/01/17 06:00 O2 Sat by Pulse Oximetry (%) 95 07/31/17 21:00 Constitutional: Yes: Other (lethargic, arousable to voice) Cardiovascular: Yes: Regular Rate and Rhythm. No: Gallop, Murmur, Rub Respiratory: Yes: Regular, On Nasal O2, Rhonchi. No: CTA Bilaterally, Rales, Wheezes Gastrointestinal: Yes: Normal Bowel Sounds, Soft. No: Distention, Tenderness Extremities: Yes: WNL Edema: No Labs: CBC, BMP 08/01/17 06:00 08/01/17 06:00 Problem List - Problems (1) Acute congestive heart failure Code(s): I50.9 - HEART FAILURE, UNSPECIFIED Qualifiers: Congestive heart failure type: systolic Qualified Code(s): I50.21 - Acute systolic (congestive) heart failure (2) Osteomyelitis Code(s): M86.9 - OSTEOMYELITIS, UNSPECIFIED Qualifiers: Osteomyelitis location: foot Laterality: right (3) Acute respiratory failure Code(s): J96.00 - ACUTE RESPIRATORY FAILURE, UNSP W HYPOXIA OR HYPERCAPNIA Qualifiers: Respiratory failure complication: hypoxia and hypercapnia Qualified Code(s) : J96.01 - Acute respiratory failure with hypoxia; J96.02 - Acute respiratory failure with hypercapnia; J96.02 - Acute respiratory failure with hypercapnia; J96.02 - Acute respiratory failure with hypercapnia (4) Alkalosis, metabolic Code(s): E87.3 - ALKALOSIS (5) Atrial fibrillation Code(s): I48.91 - UNSPECIFIED ATRIAL FIBRILLATION Qualifiers: Atrial fibrillation type: chronic Qualified Code(s): I48.2 - Chronic atrial fibrillation (6) CAD (coronary artery disease) Code(s): I25.10 - ATHSCL HEART DISEASE OF [place] CORONARY ARTERY W/O ANG PCTRS (7) HTN (hypertension) Code(s): I10 - ESSENTIAL (PRIMARY) HYPERTENSION (8) Hyperlipemia Code(s): E78.5 - HYPERLIPIDEMIA, UNSPECIFIED (9) PVD (peripheral vascular disease) Code(s): I73.9 - PERIPHERAL VASCULAR DISEASE, UNSPECIFIED Assessment/Plan (1) Acute congestive heart failure Assessment/Plan: -appreciate cardiology assistance -lasix discontinued -gentle hydration since appearing septic with hypotension Code(s): I50.9 - HEART FAILURE, UNSPECIFIED Qualifiers: Congestive heart failure type: systolic Qualified Code(s): I50.21 - Acute systolic (congestive) heart failure (2) Osteomyelitis Assessment/Plan: -MRI shows very early signs of osteomyelitis -appreciate vascular surgery evaluation -now on vancomycin and merrem -no longer acute problem Code(s): M86.9 - OSTEOMYELITIS, UNSPECIFIED Qualifiers: Osteomyelitis location: foot Laterality: right (3) Acute respiratory failure Assessment/Plan: -continue oxygen -lasix stopped as above Code(s): J96.00 - ACUTE RESPIRATORY FAILURE, UNSP W HYPOXIA OR HYPERCAPNIA Qualifiers: Respiratory failure complication: hypoxia and hypercapnia Qualified Code(s) : J96.01 - Acute respiratory failure with hypoxia (4) Alkalosis, metabolic Assessment/Plan: -secondary to diuresis -slightly improved today Code(s): E87.3 - ALKALOSIS (5) Atrial fibrillation Assessment/Plan: -rate controlled -not an anticoagulation candidate secondary to suspected GI/urinary bleed last admission and inability to do interventions -continue aspirin Code(s): I48.91 - UNSPECIFIED ATRIAL FIBRILLATION Qualifiers: Atrial fibrillation type: chronic Qualified Code(s): I48.2 - Chronic atrial fibrillation (6) CAD (coronary artery disease) Assessment/Plan: -quiescent -continue medical management -cardiology following Code(s): I25.10 - ATHSCL HEART DISEASE OF [place] CORONARY ARTERY W/O ANG PCTRS (7) HTN (hypertension) Assessment/Plan: -controlled Code(s): I10 - ESSENTIAL (PRIMARY) HYPERTENSION (8) Hyperlipemia Assessment/Plan: -continue statin Code(s): E78.5 - HYPERLIPIDEMIA, UNSPECIFIED (9) PVD (peripheral vascular disease) Assessment/Plan: -cannot anticoagulate secondary to history of GI/urinary bleed -vascular surgery following Code(s): I73.9 - PERIPHERAL VASCULAR DISEASE, UNSPECIFIED (10) Pneumonia -now with sepsis -appreciate ID assistance -on vancomycin and merrem (11) Severe sepsis with metabolic encephalopathy -patient becoming more lethargic -with increasing leukocytosis, fevers, ARF, and hypotension -antibiotics as above -will hydrate -patient with very poor prognosis now
--- NOTE | 2017-08-01 11:09 | PN ---
Progress Note (short form) - Note Progress Note: Chief Complaint: chf History of Present Illness: lethargic, not answering questions, fever overnight Current Medications Generic Name Dose Route Start Last Admin Trade Name Freq PRN Reason Stop Dose Admin Albuterol Sulfate 1 amp 07/27/17 14:06 08/01/17 00:00 Ventolin 0.083% Nebulizer Soln - NEB 1 amp Q4H PRN Administration SHORT OF BREATH/WHEEZING Aspirin 81 mg 07/26/17 06:15 08/01/17 10:29 Asa - PO 81 mg DAILY [facility] Administration Atorvastatin Calcium 10 mg 07/25/17 22:00 07/31/17 22:16 Lipitor - PO 10 mg HS [facility] Administration Docusate Sodium 200 mg 07/25/17 22:00 07/31/17 22:16 Colace - PO 200 mg HS [facility] Administration Duloxetine HCl 60 mg 07/25/17 22:00 07/31/17 22:16 Cymbalta - PO 60 mg HS [facility] Administration Fenofibric Acid 135 mg 07/25/17 10:00 08/01/17 10:31 Trilipix - PO 135 mg DAILY [facility] Administration Ferrous Sulfate 325 mg 07/25/17 10:00 08/01/17 10:29 Feosol - PO 325 mg DAILY [facility] Administration Fluticasone Propionate 2 spray 07/25/17 10:00 08/01/17 10:29 Flonase - NS 2 spray DAILY [facility] Administration Gabapentin 600 mg 07/25/17 10:00 08/01/17 10:35 Neurontin - PO 600 mg BID [facility] Administration Guaifenesin 1,200 mg 07/31/17 14:45 08/01/17 10:29 Mucinex - PO 1,200 mg BID [facility] Administration Heparin Sodium (Porcine) 5,000 unit 07/25/17 09:31 08/01/17 10:29 Heparin - SQ 5,000 unit BID [facility] Administration Meropenem 1 gm in 20 mls @ 240 mls/hr 08/01/17 02:00 08/01/17 10:43 Merrem (Restricted To Id) - IVPUSH 240 mls/hr Q8H-IV [facility] Administration Protocol Vancomycin HCl 1,000 mg/ 250 mls @ 166.667 mls/hr 07/31/17 18:15 08/01/17 10: 30 Dextrose IVPB 166.667 mls/hr DAILY [facility] Administration Protocol Sodium Chloride 1,000 mls @ 50 mls/hr 08/01/17 10:30 08/01/17 10:42 Normal Saline - IV 08/02/17 10:25 50 mls/hr ASDIR [facility] Administration Levothyroxine Sodium 50 mcg 07/25/17 07:00 08/01/17 06:06 Synthroid - PO 50 mcg DAILY@0700 [facility] Administration Melatonin 3 mg 07/25/17 22:00 07/31/17 22:18 Melatonin PO 3 mg HS [facility] Administration Metoprolol Tartrate 25 mg 07/26/17 10:00 08/01/17 10:42 Lopressor - PO Not Given BID [facility] Potassium Chloride 20 meq 07/25/17 10:00 08/01/17 10:29 K-Dur - PO 20 meq DAILY [facility] Administration Ranitidine HCl 150 mg 07/25/17 10:00 08/01/17 10:29 Zantac - PO 150 mg BID [facility] Administration Senna 2 tab 07/25/17 10:00 08/01/17 10:28 Senna - PO 2 tab DAILY [facility] Administration Tamsulosin HCl 0.4 mg 07/25/17 08:30 08/01/17 10:28 Flomax - PO 0.4 mg DAILY@0830 [facility] Administration Tiotropium [place] 1 puff 07/25/17 10:00 08/01/17 10:31 Spiriva - IH Not Given DAILY [facility] - Objective Vital Signs: Vital Signs Temp 99.4 F 08/01/17 06:00 Pulse 93 H 08/01/17 06:00 Resp 20 08/01/17 06:00 BP 93/51 08/01/17 06:00 Pulse Ox 95 07/31/17 21:00 Intake & Output 07/31/17 07/31/17 08/01/17 11:59 23:59 11:59 Intake Total 50 600 Balance 50 600 Weight 143 lb 1 oz Intake: IVPB 400 Oral 50 200 Other: Voiding Method Incontinent Diaper # Unmeasured Voids Void 2 1 Bowel Movement No No Weight Measurement Method Built in [facility] Constitutional: Yes: Well Nourished, No Distress, Calm Cardiovascular: Yes: Pulse Irregular, JVD ((L neck)), S1, S2. No: Gallop, Murmur Respiratory: Yes: Regular, CTA Bilaterally (not taking deep breaths). No: Accessory Muscle Use, Rales, Wheezes Extremities: No: Cold Edema: No Neurological: Yes: Lethargy. No: Seizure Psychiatric: No: Agitated Labs: CBC, BMP 08/01/17 06:00 08/01/17 06:00 ecg : afib, with pvc's/aberrancy. lad, rbb--no change vs 05/19 cxr: minimal improvement in congestive changes, no effusions cxr 07/29: no change echo 05/2017: mild, global LV hypo; nl RV; mild MR; mild ao root dilation (no RVSP) mibi 10/2016: no ischemia a/p: sob/acute diastolic hf exacerbation: - BNP 19K (prior range 18K-27K), cxr with residual congestive changes - receiving lasix 40 iv qd - 07/27: lytes/renal fxn stable. wt trend up 8 lb in 2d, ? accurate. - no more sob but suspect marked JVD still on exam, and lung exam remains wet - 07/28: wt up further, JVD persists. only 1000 cc UOP yest (says he's collecting it in urinal--accurate?). bun and creat improved today. - on review of OCT, no pm dose lasix given yest (i was not consulted)--so still received 40 iv qd. will change to lasix 80 iv qd. - 07/29-: wt down, creat stable. cont lasix 80 iv qd. - 08/01: clinical decompensation today with fever, elevated white count, marv--> likely worsening pna/infection. Will dc lasix and bb for now. Ok to give some ivfs to maintain bp. Poor prognosis. afib: - AC had been held on last admit for hematuria and anemia/thrombocytopenia. - cont ASA for now, per prior plan - rate controlled on bb but now bp low/septic so will hold for now cad s/p remote pci: -stable -no signs acs: troponins flat and no ecg changes -cont ASA, statin, bb (on hold as above). has been off acei due to low bp tendencies htn: -bp low 2/2 infection/sepsis, hold bb for now hld: -cont home statin
--- NOTE | 2017-08-01 11:42 | PN ---
Progress Note (short form) - Note Progress Note: PULMONARY More lethargic today. Febrile to 103.5 overnight. Last Vital Signs Temp Pulse Resp BP Pulse Ox 99.4 F 93 H 20 93/51 95 08/01/17 06:00 08/01/17 06:00 08/01/17 06:00 08/01/17 06:00 07/31/17 21:00 Gen: somnolent but arousable Heart: RRR Lung: decreased breath sounds at the bases Abd: soft, nontender Ext: no edema CBC, BMP 08/01/17 06:00 08/01/17 06:00 Active Medications Albuterol Sulfate (Ventolin 0.083% Nebulizer Soln -) 1 amp NEB Q4H PRN PRN Reason: SHORT OF BREATH/WHEEZING Last Admin: 08/01/17 00:00 Dose: 1 amp Aspirin (Asa -) 81 mg PO DAILY [facility] Last Admin: 08/01/17 10:29 Dose: 81 mg Atorvastatin Calcium (Lipitor -) 10 mg PO HS [facility] Last Admin: 07/31/17 22:16 Dose: 10 mg Docusate Sodium (Colace -) 200 mg PO HS [facility] Last Admin: 07/31/17 22:16 Dose: 200 mg Duloxetine HCl (Cymbalta -) 60 mg PO HS [facility] Last Admin: 07/31/17 22:16 Dose: 60 mg Fenofibric Acid (Trilipix -) 135 mg PO DAILY [facility] Last Admin: 08/01/17 10:31 Dose: 135 mg Ferrous Sulfate (Feosol -) 325 mg PO DAILY [facility] Last Admin: 08/01/17 10:29 Dose: 325 mg Fluticasone Propionate (Flonase -) 2 spray NS DAILY [facility] Last Admin: 08/01/17 10:29 Dose: 2 spray Gabapentin (Neurontin -) 600 mg PO BID [facility] Last Admin: 08/01/17 10:35 Dose: 600 mg Guaifenesin (Mucinex -) 1,200 mg PO BID [facility] Last Admin: 08/01/17 10:29 Dose: 1,200 mg Heparin Sodium (Porcine) (Heparin -) 5,000 unit SQ BID [facility] Last Admin: 08/01/17 10:29 Dose: 5,000 unit Meropenem (Merrem (Restricted To Id) -) 1 gm in 20 mls @ 240 mls/hr IVPUSH Q8H- IV [facility] PRN Reason: Protocol Last Admin: 08/01/17 10:43 Dose: 240 mls/hr Vancomycin HCl 1,000 mg/ (Dextrose) 250 mls @ 166.667 mls/hr IVPB DAILY [facility] PRN Reason: Protocol Last Admin: 08/01/17 10:30 Dose: 166.667 mls/hr Sodium Chloride (Normal Saline -) 1,000 mls @ 50 mls/hr IV ASDIR [facility] Stop: 08/02/17 10:25 Last Admin: 08/01/17 10:42 Dose: 50 mls/hr Levothyroxine Sodium (Synthroid -) 50 mcg PO DAILY@0700 [facility] Last Admin: 08/01/17 06:06 Dose: 50 mcg Melatonin (Melatonin) 3 mg PO HS [facility] Last Admin: 07/31/17 22:18 Dose: 3 mg Potassium Chloride (K-Dur -) 20 meq PO DAILY [facility] Last Admin: 08/01/17 10:29 Dose: 20 meq Ranitidine HCl (Zantac -) 150 mg PO BID [facility] Last Admin: 08/01/17 10:29 Dose: 150 mg Senna (Senna -) 2 tab PO DAILY [facility] Last Admin: 08/01/17 10:28 Dose: 2 tab Tamsulosin HCl (Flomax -) 0.4 mg PO DAILY@0830 [facility] Last Admin: 08/01/17 10:28 Dose: 0.4 mg Tiotropium [place] (Spiriva -) 1 puff IH DAILY [facility] Last Admin: 08/01/17 10:31 Dose: Not Given A/P Pneumonia Acute on Chronic Diastolic Heart Failure Atrial Fibrillation CAD HTN Hypercholesterolemia - repeat CXR, cultures - continue lasix - monitor urine output, creatinine - daily weights, I/Os - inhaled bronchodilators as needed - aspiration precautions - DVT prophylaxis - poor prognosis
--- NOTE | 2017-08-01 16:08 | CONSULT ---
Consult - History of Present Illness History of Present Illness: 86 year old man well known to me with long history of PAD and prior interventions in both legs. He is now admitted with shortness of breath and right 1st toe pain. 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) - Past Surgical History Past Surgical History: Yes: Bypass (left fem-pop), CABG (x3 2004), Cholecystectomy, Joint Replacement (bilateral knees), Orchiectomy (unilateral for testicular injury at 18yrs of age) - Alcohol/Substance Use Hx Alcohol Use: No History of Substance Use: reports: None - Smoking History Smoking history: Former smoker Have you smoked in the past 12 months: No Aproximately how many cigarettes per day: 0 If you are a former smoker, when did you quit?: 1983 - Social History Usual Living Arrangement: With Spouse ADL: Support Services (In [place] post) 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[employer]) History of Recent Travel: No Home Medications - Allergies Allergies/Adverse Reactions: Allergies Allergy/AdvReac Type Severity Reaction Status Date / Time Penicillins Allergy Intermediate Rash Verified 07/24/17 20:20 - Home Medications Home Medications: Ambulatory Orders Atorvastatin Ca [Lipitor] 10 mg PO HS 12/12/15 Docusate Sodium [Colace -] 200 mg PO HS 12/12/15 Duloxetine HCl [Cymbalta] 60 mg PO HS 12/12/15 Fenofibrate Nanocrystallized [Tricor] 145 mg PO DAILY 12/12/15 Ferrous Sulfate [Slow Release Iron] 45 mg PO DAILY 12/12/15 Fluticasone Prop 0.05% Nasal [Flonase -] 2 spray NS DAILY 12/12/15 Levomefolate/B6/B12/Algal Oil [Metanx Capsule] 1 each PO BID 12/12/15 Levothyroxine [Synthroid -] 50 mcg PO DAILY 12/12/15 Potassium Chloride 20 meq PO DAILY 12/12/15 Sennosides [Senna Concentrate] 17.2 mg PO DAILY 12/12/15 Gabapentin 600 mg PO BID 05/08/17 Melatonin 3 mg PO DAILY 05/08/17 Acetaminophen [Tylenol .Regular Strength -] 650 mg PO Q6H PRN #0 tablet Albuterol 2.5/Ipratropium 0.5 [Duoneb -] 1 amp NEB Q4H PRN #0 amp 06/06/17 Furosemide [Lasix -] 40 mg PO DAILY tablet 06/06/17 Metoprolol Tartrate [Lopressor -] 25 mg PO BID tablet 06/06/17 Ranitidine [Zantac -] 150 mg PO BID tablet 06/06/17 Tamsulosin HCl [Flomax -] 0.4 mg PO DAILY@0830 cap.sr 06/06/17 Tiotropium [place] [Spiriva] 1 puff IH DAILY inh 06/06/17 Magnesium l-Lactate [Mag-Tab Sr] 84 mg PO DAILY 07/24/17 Family Disease History - Family Disease History Family Disease History: CA: Son (1 son from cancer, 1 son from alcohol abuse), Other: Father (old age), Mother (old age), Son Physical Exam Vital Signs: Vital Signs Temperature 98.2 F 08/01/17 15:40 Pulse Rate 127 H 08/01/17 15:40 Respiratory Rate 18 08/01/17 15:40 Blood Pressure 106/53 08/01/17 15:40 O2 Sat by Pulse Oximetry (%) 88 L 08/01/17 09:00 Labs: CBC, BMP 08/01/17 06:00 08/01/17 06:00
[2017-08-01] MEDS ORDERED: ACETAMINOPHEN 650 MG SUPP.RECT PR PRN (16:13)
--- NOTE | 2017-08-01 17:57 | PN ---
Progress Note, Physician History of Present Illness: Pt is tachypneic and lethargic. Febrile to 103F last night, increased productive cough with green sputum noted yesterday. WBC count elevated. - Current Medication List Current Medications: Active Medications Acetaminophen (Tylenol Suppository -) 650 mg [place] Q4H PRN PRN Reason: FEVER OR PAIN Albuterol Sulfate (Ventolin 0.083% Nebulizer Soln -) 1 amp NEB Q4H PRN PRN Reason: SHORT OF BREATH/WHEEZING Last Admin: 08/01/17 00:00 Dose: 1 amp Aspirin (Asa -) 81 mg PO DAILY [facility] Last Admin: 08/01/17 10:29 Dose: 81 mg Atorvastatin Calcium (Lipitor -) 10 mg PO HS [facility] Last Admin: 07/31/17 22:16 Dose: 10 mg Docusate Sodium (Colace -) 200 mg PO HS [facility] Last Admin: 07/31/17 22:16 Dose: 200 mg Duloxetine HCl (Cymbalta -) 60 mg PO HS [facility] Last Admin: 07/31/17 22:16 Dose: 60 mg Fenofibric Acid (Trilipix -) 135 mg PO DAILY [facility] Last Admin: 08/01/17 10:31 Dose: 135 mg Ferrous Sulfate (Feosol -) 325 mg PO DAILY [facility] Last Admin: 08/01/17 10:29 Dose: 325 mg Fluticasone Propionate (Flonase -) 2 spray NS DAILY [facility] Last Admin: 08/01/17 10:29 Dose: 2 spray Gabapentin (Neurontin -) 600 mg PO BID [facility] Last Admin: 08/01/17 10:35 Dose: 600 mg Guaifenesin (Mucinex -) 1,200 mg PO BID [facility] Last Admin: 08/01/17 10:29 Dose: 1,200 mg Heparin Sodium (Porcine) (Heparin -) 5,000 unit SQ BID MICHAEL Last Admin: 08/01/17 10:29 Dose: 5,000 unit Meropenem (Merrem (Restricted To Id) -) 1 gm in 20 mls @ 240 mls/hr IVPUSH Q8H- IV MICHAEL PRN Reason: Protocol Last Admin: 08/01/17 17:41 Dose: 240 mls/hr Sodium Chloride (Normal Saline -) 1,000 mls @ 50 mls/hr IV ASDIR MICHAEL Stop: 08/02/17 10:25 Last Admin: 11/30/17 10:42 Dose: 50 mls/hr Levothyroxine Sodium (Synthroid -) 50 mcg PO DAILY@0700 [facility] Last Admin: 08/01/17 06:06 Dose: 50 mcg Melatonin (Melatonin) 3 mg PO HS [facility] Last Admin: 07/31/17 22:18 Dose: 3 mg Potassium Chloride (K-Dur -) 20 meq PO DAILY [facility] Last Admin: 08/01/17 10:29 Dose: 20 meq Ranitidine HCl (Zantac -) 150 mg PO BID [facility] Last Admin: 08/01/17 10:29 Dose: 150 mg Senna (Senna -) 2 tab PO DAILY [facility] Last Admin: 08/01/17 10:28 Dose: 2 tab Tamsulosin HCl (Flomax -) 0.4 mg PO DAILY@0830 [facility] Last Admin: 08/01/17 10:28 Dose: 0.4 mg Tiotropium [place] (Spiriva -) 1 puff IH DAILY [facility] Last Admin: 08/01/17 10:31 Dose: Not Given - Objective Vital Signs: Vital Signs Temperature 98.2 F 08/01/17 15:40 Pulse Rate 127 H 08/01/17 15:40 Respiratory Rate 18 08/01/17 15:40 Blood Pressure 106/53 08/01/17 15:40 O2 Sat by Pulse Oximetry (%) 88 L 08/01/17 09:00 Constitutional: Yes: Cachectic, Severe Distress Neck: Yes: Supple Cardiovascular: Yes: Tachycardia Respiratory: Yes: Diminished (on RT upper section) Gastrointestinal: Yes: WNL Musculoskeletal: Yes: WNL Integumentary: Yes: WNL Neurological: Yes: Lethargy Labs: CBC, BMP 08/01/17 06:00 08/01/17 06:00 Microbiology 07/25/17 01:45 Urine - Urine Clean Catch Urine Culture - Final NO GROWTH OBTAINED - ....Imaging Chest X-ray: Report Reviewed Problem List - Problems (1) Acute congestive heart failure Code(s): I50.9 - HEART FAILURE, UNSPECIFIED Qualifiers: Congestive heart failure type: systolic Qualified Code(s): I50.21 - Acute systolic (congestive) heart failure (2) CAD (coronary artery disease) Code(s): I25.10 - ATHSCL HEART DISEASE OF [place] CORONARY ARTERY W/O ANG PCTRS (3) CHF (congestive heart failure) Code(s): I50.9 - HEART FAILURE, UNSPECIFIED Qualifiers: Congestive heart failure type: unspecified congestive heart failure type Congestive heart failure chronicity: chronic Qualified Code(s): I50.9 - Heart failure, unspecified (4) Cellulitis Code(s): L03.90 - CELLULITIS, UNSPECIFIED (5) HTN (hypertension) Code(s): I10 - ESSENTIAL (PRIMARY) HYPERTENSION (6) Leukocytosis Code(s): D72.829 - ELEVATED WHITE BLOOD CELL COUNT, UNSPECIFIED Assessment/Plan Acute respiratory distress/ Hypoxia Fever Leukocytosis PNA/effusion ROVERTO - cont empiric antibiotics, hold Vancomycin with worsening renal function - blood culture results pending - 100% NRM - comfort care prognosis poor Family at bedside
[2017-08-01 18:24] VITALS: BP 109/50; PULSE 90; TEMP 97.3
--- NOTE | 2017-08-01 19:14 | PN ---
Progress Note (short form) - Note Progress Note: RN called that patient is not responding. patient was dnr /dni patient seen and examined. Pupil fixed, dilated, non reacting to light corneal reflex absent. no response to sternal rub. No spontaneous breathing. NO heart sounds on auscultation. Absence pulse on palpation. Patient declared at 7:07 pm on August 01 2017. Family present at bedside.
== END 2017-08-01 21:59 | disposition expired | DRG 291 ==
LOC: JER 19:56 → JERBED 23:21 → J4W 07-25 05:50 → OBSVTOIN 07-25 08:24 → J8W 07-29 18:40
PROVIDERS: ADMIT Internal Medicine; ATTEND Internal Medicine
DX: I13.0 Hypertensive heart and chronic kidney disease with heart failure and stage 1 through stage 4 chronic kidney disease, or unspecified chronic kidney disease (principal); J18.9 Pneumonia, unspecified organism; A41.9 Sepsis, unspecified organism; R65.20 Severe sepsis without septic shock; I50.33 Acute on chronic diastolic (congestive) heart failure; G93.41 Metabolic encephalopathy; J96.01 Acute respiratory failure with hypoxia; M86.9 Osteomyelitis, unspecified; E87.3 Alkalosis; R64 Cachexia; N18.9 Chronic kidney disease, unspecified; L03.031 Cellulitis of right toe; I48.91 Unspecified atrial fibrillation; E83.42 Hypomagnesemia; E87.6 Hypokalemia; E78.5 Hyperlipidemia, unspecified; Z85.828 Personal history of other malignant neoplasm of skin; J44.9 Chronic obstructive pulmonary disease, unspecified; E03.9 Hypothyroidism, unspecified; Z95.5 Presence of coronary angioplasty implant and graft; Z96.653 Presence of artificial knee joint, bilateral; Z87.891 Personal history of nicotine dependence; G62.9 Polyneuropathy, unspecified; Z95.1 Presence of aortocoronary bypass graft; R13.10 Dysphagia, unspecified; Z86.73 Personal history of transient ischemic attack (TIA), and cerebral infarction without residual deficits; I25.10 Atherosclerotic heart disease of native coronary artery without angina pectoris; Z79.01 Long term (current) use of anticoagulants; M21.371 Foot drop, right foot; Z89.421 Acquired absence of other right toe(s); Z68.20 Body mass index [BMI] 20.0-20.9, adult; Z66 Do not resuscitate
CPT/HCPCS: 36415; 71010-TC; 73630-TC-RT; 73718-TC; 80048; 80053; 81003; 82550; 83735; 83880; 84100; 84484; 85025; 85027; 85651; 86140; 87040; 87086; 93005; 93010; 94640; 97116-GP; 97161-GP; 99285-25; G0378; J1644